=== PATIENT | male | born 1950 | race Two or more races ===

== ENCOUNTER 2020-08-17 10:43 | Emergency (ER) | payer MEDICARE, SELFPAY ==
--- NOTE | ~2020-08-17 | CT_ITS ---
EXAMINATION: CT ABDOMEN AND PELVIS WITHOUT CONTRAST CLINICAL INFORMATION: Flank pain COMPARISON: 09/08/2019 02/11/2018 TECHNIQUE: Multidetector volumetric imaging was performed from the superior aspect of the liver through the pubic symphysis. Sagittal and coronal reformatted images were obtained on the technologist's workstation. This CT examination was performed using dose optimization techniques as appropriate, variously including the following: *Automated exposure control *Adjustment of mA and/or kV according to patient size (this includes techniques or standardized protocols for targeted exams where dose is matched to indication/reason for exam; i.e. extremities or head) *Use of iterative reconstruction technique DLP: 391 mGy-cm FINDINGS: LUNG BASES: The visualized lung bases are unremarkable. LIVER, GALLBLADDER, AND BILIARY TREE: The liver is normal in size, shape, and attenuation. No focal hepatic lesion or biliary ductal dilatation is present. The gallbladder is unremarkable with no evidence of radiopaque gallstones, gallbladder wall thickening, or obvious pericholecystic inflammatory changes. PANCREAS: Unremarkable. SPLEEN: Unremarkable. ADRENAL GLANDS: Unremarkable. KIDNEYS AND URETERS: The kidneys are normal in size, shape, and attenuation. There are couple tiny calculi within the left kidney ranging in size from 1 to 2 mm. No ureteral calculi. No hydronephrosis. Simple fluid attenuating cyst measuring 1.5 cm within the anterior cortex of the right kidney. No perinephric stranding. BLADDER: Mildly and diffusely thick-walled GASTROINTESTINAL TRACT: The small and large bowel are unremarkable. The appendix is unremarkable. ABDOMINAL WALL: Small fat-containing umbilical hernia. Coarse calcification within the right lower quadrant likely represents an old torsed epiploic appendage or omental infarct. LYMPH NODES: Normal. VASCULAR: Stable right common iliac artery aneurysm measuring up to 2.5c centimeters. Aorta is atherosclerotic but normal caliber. PELVIC VISCERA: Prostate is significantly enlarged. TURP defect. Seminal vesicles unremarkable. OSSEOUS STRUCTURES: No acute or suspicious osseous abnormalities. Degenerative changes present throughout the spine. CT/CT abdomen pelvis wo con IMPRESSION: * There are couple small nonobstructive intrarenal calculi within the left kidney. * No ureteral calculi or hydronephrosis. * Stable marked prostatomegaly status post TURP. 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 No perivesicular fat stranding to suggest cystitis. * Stable right common iliac artery aneurysm measuring up to 2.5 cm.
[2020-08-17 11:23] VITALS: BP 126/94; PULSE 79; RESP 18; TEMP 37.1; O2SAT 96; BMI 23.3
--- NOTE | 2020-08-17 11:54 | ED_ITS ---
HPI - Abdominal Pain General Chief Complaint: Abdominal Pain Stated Complaint: BLOOD IN URIN Time Seen by Provider: 08/17/20 11:42 Source: patient Mode of arrival: ambulatory Limitations: no limitations History of Present Illness HPI narrative: 70-year-old male with a past medical history of asthma, hypertension, laser prostatectomy 05/2018 with postoperative hematuria with admission at that time for CBI here today with gross hematuria x3 days with clots and tissue pieces, with lower suprapubic discomfort and bilateral flank pain. Also complaining of dysuria, urgency, frequency. No fevers, chills, nausea, vomiting. Not on anticoagulation. No difficulty voiding. MD elicited complaint: abdominal pain Related Data Previous Rx's Medication Instructions Recorded simethicone 125 mg chewable tablet 125 mg PO QID PRN 30 Days #120 tab 07/18/20 ciprofloxacin HCl [Cipro] 500 mg PO BID #14 tab 08/17/20 tamsulosin [Flomax] 0.4 mg PO DAILY #30 cap 08/17/20 Allergies Allergy/AdvReac Type Severity Reaction Status Date / Time acetaminophen [Percocet] Allergy Unknown Verified 09/21/19 00:00 oxycodone [From PERCOCET] Allergy Unknown HIVES Unverified 03/21/20 19:06 Review of Systems Review of Systems Yes all other systems are reviewed and are negative Constitutional: Reports no additional constitutional complaints, Denies body ache(s), Denies chills, Denies fever(s), Denies headache(s) and Denies weakness Eyes: Reports no additional eye complaints and Denies change in vision Reports system reviewed and no additional complaints, except as documented, Denies dizziness, Denies headache(s), Denies nasal congestion, Denies nasal discharge and Denies neck pain Cardiovascular: Reports no additional cardiovascular complaints, Denies chest p ain, Denies leg edema and Denies dyspnea Respiratory: Reports no additional respiratory complaints, Denies cough and Denies dyspnea Gastrointestinal: Reports no additional gastrointestinal complaints, Denies abdominal pain, Denies diarrhea, Denies nausea and Denies vomiting Genitourinary: Reports hematuria, Denies difficulty urinating, Reports dysuria, Reports flank pain, Denies testicular pain, Reports urinary frequency and Denies urinary incontinence Musculoskeletal: Reports no additional musculoskeletal complaints, Reports back pain, Denies arthralgias, Denies joint swelling, Denies neck pain, Denies numbness and Denies tingling Skin/Breast: Reports system reviewed and no additional complaints, except as docu and Denies rash Reports system reviewed and no additional complaints, except as documented, Denies Abnormal speech present, Denies dizziness, Denies headache(s), Denies numbness, Denies tingling and Denies weakness Physical Exam Vital Signs: Vital Signs: Last Vital Signs Temp 98.7 F 08/17/20 11:23 Pulse 72 08/17/20 14:25 Resp 18 08/17/20 14:25 BP 131/93 H 08/17/20 14:25 Pulse Ox 95 08/17/20 14:25 Body Mass Index 23.3 Const: General: cooperative, healthy appearing, comfortable and no acute distress Orientation/consciousness: patient oriented x3 Limitations: no limitations HENMT: Head: Yes normal to inspection Ears: hearing grossly normal bilaterally General nose exam: Normal external nose present Face and sinus: Yes normal facial exam Mouth: Normal oral and palatal mucosa present Throat: Yes posterior oropharynx normal Eyes: General: appearance normal, both eyes and all related structures Pupils: Equal, round and reactive pupils present Neck: Neck: Yes normal visual inspection Chest: Chest palpation & inspection: normal inspection of the chest Resp: Effort & Inspection: normal respiratory effort Auscultation: clear to auscultation bilaterally Cardio: Rate: regular rate Rhythm: regular rhythm Peripheral pulses: Peripheral pulses 2+ throughout GI: Inspection: Yes normal to inspection Palpation (GI): Soft to palpation and nontender Auscultation: normal bowel sounds Back/Spine/Pelvis: Thoracic/Lumbar Spine: thoracic and lumbar spine normal to inspection Skin: General skin exam: no rashes or lesions noted Neuro: General: patient oriented x3, no focal motor deficits and normal sensation to monofilament Cranial nerves: Yes Equal, round and reactive pupils present Cognition (Neuro): normal cognition Speech: No Abnormal speech present Gait exam (Neuro): Normal gait present Motor exam (neuro): 5/5 motor strength present throughout Extrem: General: Yes normal to inspection Course Course Course Narrative: 70 year old male here with gross hematuria with clots and tissue fragments, urinary frequency, urgency, dysuria, suprapubic discomfort and bilateral flank pain times several days. No difficulty urinating. Will check UA, labs, postvoid residual to make sure patient is not retaining. 1415-CT scan shows several nonobstructing stones No ureteral calculi or hydronephrosis. Stable marked prostatomegaly status post TURP. 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 No perivesicular fat stranding to suggest cystitis. Stable right common iliac artery aneurysm measuring up to 2.5 cm. UA appears infected. Labs unremarkable continues to have gross hematuria but NO difficulty voiding. Postvoid residual <200 cc. Hematuria likely secondary to infection. Will likely need to follow up with Urology based on his history. Recommended he call them next week for an appointment. I recommend he return to the emergency department if he is unable to void or having difficulty. Reviewed worrisome signs and symptoms and when to return to the emergency department. Comfortable discharge home. MDM - Abdominal Pain Medical Records Attestation: I reviewed the patient's medical records. Lab Data Attestation: I reviewed the patient's lab results. Result diagrams: 08/17/20 12:20 08/17/20 12:20 Labs: Lab Results 08/17/20 08/17/20 08/17/20 Range/Units 12:20 12:20 12:20 WBC 4.2 L (4.8-10.8) X10*3/uL RBC 4.93 (4.60-5.80) X10*6/uL Hgb 13.9 L (14.0-18.0) g/dl Hct 42.7 (42-52) % MCV 86.6 (80-98) fL MCH 28.2 (27.0-33.0) pg MCHC 32.6 (31.0-36.0) g/dl RDW 12.3 (11.0-16.0) % Plt Count 155 L (160-400) X10*3/uL MPV 10.4 (9.4-12.4) fL Immature Gran % (Auto) 0.2 (0.0-0.4) % Neut % (Auto) 64.6 (45-73) % Lymph % (Auto) 24.1 (20-40) % [facility] % (Auto) 7.5 (2-11) % Eos % (Auto) 3.1 (0-4) % Baso % (Auto) 0.5 (0-2) % Lymph # (Auto) 1.0 L (1.2-4.9) X10*3/uL [facility] # (Auto) 0.3 (0.1-1.2) X10*3/uL Eos # (Auto) 0.1 (0.0-0.4) X10*3/uL Baso # (Auto) 0.0 (0.0-0.2) X10*3/uL Abs Immat Gran (auto) 0.01 (0.00-0.03) X10*3/uL Absolute Neuts (auto) 2.7 (2.0-8.3) X10*3/uL Absolute Nucleated RBC 0.000 (0.0-0.012) X10*3/uL Nucleated RBC % (auto) 0.0 (0.0-0.2) /100WBC PT 12.2 (10.8-13.0) SEC INR 1.0 (0.9-1.1) Sodium 141 (135-145) mmol/L Potassium 4.6 (3.3-5.1) mmol/L Chloride 100 (96-108) mmol/L Carbon Dioxide 34 H (22-29) mmol/L Anion Gap 12 (12-20) BUN 19 H (9-16) mg/dL Creatinine 0.78 (0.5-1.4) mg/dL Estim Creat Clear Calc 79.5 Estimated GFR > 60 Random Glucose 89 (60-115) mg/dL Calcium 9.6 (8.4-10.2) mg/dL Total Bilirubin 0.7 (0.0-1.0) mg/dL Direct Bilirubin 0.2 (0.0-0.5) mg/dL AST 23 (5-37) U/L ALT 27 (0-40) U/L Alkaline Phosphatase 54 (39-117) U/L Total Protein 6.8 (6.5-8.0) g/dL Albumin 4.5 (3.5-5.0) g/dL Urine Color Urine Appearance Urine pH (5.0-8.0) Ur Specific [place] (1.005-1.025) Urine Protein (NEG-TRACE) MG/DL Urine Glucose (UA) (NEG) MG/DL Urine Ketones (NEG) MG/DL Urine Blood (NEG) Urine Nitrite (NEG) Ur Leukocyte Esterase (NEG) Urine RBC (0) /HPF Urine WBC (0-4) /HPF Ur Squamous Epith Cells /LPF Urine Bacteria /LPF 08/17/20 Range/Units 12:20 WBC (4.8-10.8) X10*3/uL RBC (4.60-5.80) X10*6/uL Hgb (14.0-18.0) g/dl Hct (42-52) % MCV (80-98) fL MCH (27.0-33.0) pg MCHC (31.0-36.0) g/dl RDW (11.0-16.0) % Plt Count (160-400) X10*3/uL MPV (9.4-12.4) fL Immature Gran % (Auto) (0.0-0.4) % Neut % (Auto) (45-73) % Lymph % (Auto) (20-40) % [facility] % (Auto) (2-11) % Eos % (Auto) (0-4) % Baso % (Auto) (0-2) % Lymph # (Auto) (1.2-4.9) X10*3/uL [facility] # (Auto) (0.1-1.2) X10*3/uL Eos # (Auto) (0.0-0.4) X10*3/uL Baso # (Auto) (0.0-0.2) X10*3/uL Abs Immat Gran (auto) (0.00-0.03) X10*3/uL Absolute Neuts (auto) (2.0-8.3) X10*3/uL Absolute Nucleated RBC (0.0-0.012) X10*3/uL Nucleated RBC % (auto) (0.0-0.2) /100WBC PT (10.8-13.0) SEC INR (0.9-1.1) Sodium (135-145) mmol/L Potassium (3.3-5.1) mmol/L Chloride (96-108) mmol/L Carbon Dioxide (22-29) mmol/L Anion Gap (12-20) BUN (9-16) mg/dL Creatinine (0.5-1.4) mg/dL Estim Creat Clear Calc Estimated GFR Random Glucose (60-115) mg/dL Calcium (8.4-10.2) mg/dL Total Bilirubin (0.0-1.0) mg/dL Direct Bilirubin (0.0-0.5) mg/dL AST (5-37) U/L ALT (0-40) U/L Alkaline Phosphatase (39-117) U/L Total Protein (6.5-8.0) g/dL Albumin (3.5-5.0) g/dL Urine Color RED Urine Appearance TURBID Urine pH 7.5 (5.0-8.0) Ur Specific [place] 1.010 (1.005-1.025) Urine Protein 3+ H (NEG-TRACE) MG/DL Urine Glucose (UA) SEE NOTE (NEG) MG/DL Urine Ketones SEE NOTE (NEG) MG/DL Urine Blood 3+ H (NEG) Urine Nitrite SEE NOTE (NEG) Ur Leukocyte Esterase SEE NOTE (NEG) Urine RBC TNTC H (0) /HPF Urine WBC 5-9 H (0-4) /HPF Ur Squamous Epith Cells 1+ /LPF Urine Bacteria NONE /LPF Imaging Data CT scan - abdomen: Attestation: I personally reviewed and interpreted this imaging study as follows: Radiologist's impression: EXAMINATION: CT ABDOMEN AND PELVIS WITHOUT CONTRAST CLINICAL INFORMATION: Flank pain COMPARISON: 09/08/2019 02/11/2018 TECHNIQUE: Multidetector volumetric imaging was performed from the superior aspect of the liver through the pubic symphysis. Sagittal and coronal reformatted images were obtained on the technologist's workstation. This CT examination was performed using dose optimization techniques as appropriate, variously including the following: *Automated exposure control *Adjustment of mA and/or kV according to patient size (this includes techniques or standardized protocols for targeted exams where dose is matched to indication/reason for exam; i.e. extremities or head) *Use of iterative reconstruction technique DLP: 391 mGy-cm FINDINGS: LUNG BASES: The visualized lung bases are unremarkable. LIVER, GALLBLADDER, AND BILIARY TREE: The liver is normal in size, shape, and attenuation. No focal hepatic lesion or biliary ductal dilatation is present. The gallbladder is unremarkable with no evidence of radiopaque gallstones, gallbladder wall thickening, or obvious pericholecystic inflammatory changes. PANCREAS: Unremarkable. SPLEEN: Unremarkable. ADRENAL GLANDS: Unremarkable. KIDNEYS AND URETERS: The kidneys are normal in size, shape, and attenuation. There are couple tiny calculi within the left kidney ranging in size from 1 to 2 mm. No ureteral calculi. No hydronephrosis. Simple fluid attenuating cyst measuring 1.5 cm within the anterior cortex of the right kidney. No perinephric stranding. BLADDER: Mildly and diffusely thick-walled GASTROINTESTINAL TRACT: The small and large bowel are unremarkable. The appendix is unremarkable. ABDOMINAL WALL: Small fat-containing umbilical hernia. Coarse calcification within the right lower quadrant likely represents an old torsed epiploic appendage or omental infarct. LYMPH NODES: Normal. VASCULAR: Stable right common iliac artery aneurysm measuring up to 2.5c centimeters. Aorta is atherosclerotic but normal caliber. PELVIC VISCERA: Prostate is significantly enlarged. TURP defect. Seminal vesicles unremarkable. OSSEOUS STRUCTURES: No acute or suspicious osseous abnormalities. Degenerative changes present throughout the spine. CT/CT abdomen pelvis wo con IMPRESSION: * There are couple small nonobstructive intrarenal calculi within the left kidney. * No ureteral calculi or hydronephrosis. * Stable marked prostatomegaly status post TURP. 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 No perivesicular fat stranding to suggest cystitis. * Stable right common iliac artery aneurysm measuring up to 2.5 cm. Discharge Plan Discharge Clinical Impression: UTI (urinary tract infection), Hematuria Patient Disposition: Home, Self-Care Instructions: Urinary Tract Infection in Men (ED), Hematuria (ED) Additional Instructions: Start your antibiotics as soon as possible Call Dr. Rashid's office on Wednesday for an appointment to be seen Return here to the emergency department for difficulty urinating, fever greater than 100.4, severe abdominal pain, vomiting Prescriptions: New tamsulosin [Flomax] 0.4 mg capsule 0.4 mg PO DAILY Qty: 30 RF: 0 ciprofloxacin HCl [Cipro] 500 mg tablet 500 mg PO BID Qty: 14 RF: 0 No Action simethicone [Gas Relief (simethicone)] 125 mg tablet,chewable 125 mg PO QID PRN (Reason: abdominal distention) 30 Days Qty: 120 RF: 6 Referrals: Berto Rashid III, MD [Physician] - 2 days Interventions: ED Discharge Assessment Last Done: 08/17/20 15:22 Discharge Date/Time: 08/17/20 15:22 [facility] Past Medical History Attestation statement: The following information was validated with the patient. Source: old records reviewed and nursing notes reviewed Medical History Asthma HTN (hypertension) Surgical History Hx of prostatectomy Social History Social History Smoking Status: Former smoker Use of substances other than those prescribed or required for medical reasons: No Advance Directives: No Advance Directives Information Provided: Yes
[2020-08-17 12:25] LABS: MANUAL DIFF FLAG NO
[2020-08-17 12:28] LABS: Basophils Percent Auto 0.5 % (0-2); Eosinophils Absolute Auto 0.1 X10*3/uL (0.0-0.4); Eosinophils Percent Auto 3.1 % (0-4); Hematocrit 42.7 % (42-52); Hemoglobin 13.9 g/dl (14.0-18.0); Imm Gran Abs Auto 0.01 X10*3/uL (0.00-0.03); Imm Gran Pct Auto 0.2 % (0.0-0.4); Lymphocytes Percent Auto 24.1 % (20-40); Mean Corpuscular HGB Conc 32.6 g/dl (31.0-36.0); Mean Corpuscular Hemoglobin 28.2 pg (27.0-33.0); Mean Corpuscular Volume 86.6 fL (80-98); Mean Platelet Volume 10.4 fL (9.4-12.4); Monocytes Absolute Auto 0.3 X10*3/uL (0.1-1.2); Monocytes Percent Auto 7.5 % (2-11); Neutrophils Absolute Auto 2.7 X10*3/uL (2.0-8.3); Neutrophils Percent Auto 64.6 % (45-73); Platelet Count 155 X10*3/uL (160-400); Red Blood Count 4.93 X10*6/uL (4.60-5.80); Red Cell Distribution Width 12.3 % (11.0-16.0); White Blood Count 4.2 X10*3/uL (4.8-10.8)
[2020-08-17 12:33] LABS: PH 7.5 (5.0-8.0); Urine Blood 3+ (NEG); Urine Protein 3+ MG/DL (NEG-TRACE)
[2020-08-17 12:34] LABS: Prothrombin Time 12.2 SEC (10.8-13.0)
[2020-08-17 12:37] LABS: Appearance Urine TURBID; Color Urine RED
[2020-08-17 12:38] LABS: RBC Urine TNTC /HPF (0); Squamous Epithelial Cell Urine 1+ /LPF; UACC CULT YES
[2020-08-17 12:52] LABS: Alanine Aminotransferase 27 U/L (0-40); Albumin Level 4.5 g/dL (3.5-5.0); Alkaline Phosphatase 54 U/L (39-117); Anion Gap 12 (12-20); Aspartate Amino Transferase 23 U/L (5-37); Bilirubin Direct 0.2 mg/dL (0.0-0.5); Bilirubin Total 0.7 mg/dL (0.0-1.0); Blood Urea Nitrogen 19 mg/dL (9-16); Calcium 9.6 mg/dL (8.4-10.2); Carbon Dioxide 34 mmol/L (22-29); Chloride 100 mmol/L (96-108); Creatinine Clr Calc Pharmacy 79.5; Estimated Glomerular Filt Rate > 60; Glucose Random 89 mg/dL (60-115); Potassium 4.6 mmol/L (3.3-5.1); Sodium 141 mmol/L (135-145); Total Protein 6.8 g/dL (6.5-8.0)
[2020-08-17 14:25] VITALS: BP 131/93; PULSE 72; RESP 18; O2SAT 95
--- NOTE | 2020-08-17 14:26 | PC.NURSE ---
pt resting in the stretcher, alert and oriented, denies pain at this time pt is voiding about 350ml of hematuria urine
== END 2020-08-17 15:22 | disposition home or self-care (01) ==
PROVIDERS: Nurse Practitioner Family; Emergency Provider Emergency Medicine Emergency Medical Services
DX: N39.0 Urinary tract infection, site not specified (principal); R31.9 Hematuria, unspecified; I10 Essential (primary) hypertension
CPT/HCPCS: 36415; 74176; 80048; 80076; 81001; 85025; 85610; 87086; 99284

== ENCOUNTER → 2020-08-27 08:50 | Outpatient (BNVA) | payer MEDICARE, SELFPAY | PROVIDERS: Visit Provider Urology | DX: R33.9 Retention of urine, unspecified (principal); R31.0 Gross hematuria; N40.1 Benign prostatic hyperplasia with lower urinary tract symptoms; N13.8 Other obstructive and reflux uropathy; N20.0 Calculus of kidney | CPT/HCPCS: 81002; 99212 ==

== ENCOUNTER → 2020-10-22 08:43 | Outpatient (BNVA) | payer MEDICARE, SELFPAY | PROVIDERS: Visit Provider Urology | DX: R31.0 Gross hematuria (principal); N40.1 Benign prostatic hyperplasia with lower urinary tract symptoms; N13.8 Other obstructive and reflux uropathy | CPT/HCPCS: 52000; 99212 ==

== ENCOUNTER 2021-01-07 08:40 | Emergency (ER) | payer MEDICARE, SELFPAY ==
[2021-01-07 09:17] VITALS: BP 117/72; PULSE 80; RESP 18; TEMP 36.6; O2SAT 95; BMI 25.8
--- NOTE | 2021-01-07 09:34 | ED_ITS ---
HPI - General Adult General Chief complaint: General Medical Stated complaint: nose bleed Time Seen by Provider: 01/07/21 09:28 Source: patient and certified court/medical interpreter Mode of arrival: ambulatory Limitations: no limitations History of Present Illness HPI narrative: no aspirin/AC therapy MD complaint: nose bleeds Onset (ago): day(s) (3) Location: face (nose) Radiation: non-radiation Severity: mild Quality: aching Pain Consistency: constant Relieving factors: none Exacerbating factors: none Associated symptoms: denies other symptoms Treatments prior to arrival: none Related Data Home Medications Medication Instructions Recorded Confirmed albuterol sulfate 90 mcg/actuation 2 puff PO Q4-6H PRN 08/27/20 aerosol inhaler atorvastatin 40 mg tablet mg PO 08/27/20 hydrochlorothiazide 12.5 mg tablet 12.5 mg PO DAILY 08/27/20 omeprazole 40 mg capsule,delayed 40 mg PO DAILY 08/27/20 release peg-electrolyte solution 420 gram ml PO 08/27/20 oral solution zolpidem 5 mg tablet 5 mg PO BEDTIME 08/27/20 Previous Rx's Medication Instructions Recorded simethicone 125 mg chewable tablet 125 mg PO QID PRN 30 Days #120 tab 07/18/20 ciprofloxacin HCl [Cipro] 500 mg PO BID #14 tab 08/17/20 tamsulosin [Flomax] 0.4 mg PO DAILY #30 cap 08/17/20 terazosin 10 mg capsule 10 mg PO BEDTIME 90 Days #90 cap 10/22/20 Allergies Allergy/AdvReac Type Severity Reaction Status Date / Time acetaminophen [Percocet] Allergy Unknown hives Verified 10/22/20 08:58 oxycodone [From PERCOCET] Allergy Unknown HIVES Unverified 03/21/20 19:06 Review of Systems Review of Systems: Constitutional : No Fever, No Chills ENT/Mouth : No Ear Pain, No Nasal Congestion, positive nose bleed Eyes: No Eye Pain, No Swelling, No Redness Cardiovascular : No Chest Pain, No SOB Respiratory : No Cough, No Sputum Gastrointestinal : No Nausea, No Vomiting, No Diarrhea Genitourinary : No Dysuria, No Hematuria Musculoskeletal : No joint pain, No Myalgias Skin : No Skin Lesions, No rash Neuro : No Weakness, No Numbness, No headache Psych : No Anxiety/Panic, No Depression Heme/Lymph: no easy Bleeding,No Lymphadenopathy Endocrine : No Polyuria, No Polydipsia All other systems reviewed and are negative [facility] Past Medical History Attestation statement: The following information was validated with the patient. Medical History Asthma HTN (hypertension) Surgical History Hx of prostatectomy Social History Social History Alcohol intake: unknown Patient Tobacco Use Status: Former Tobacco user Smoked in Last 30 Days: No Use of substances other than those prescribed or required for medical reasons: No Advance Directives: Yes Advance Directives Information Provided: Yes Advance Directives on File: No Physical Exam Vital Signs: Vital Signs: Last Vital Signs Temp 98 F 01/07/21 09:17 Pulse 80 01/07/21 09:17 Resp 18 01/07/21 09:17 BP 117/72 01/07/21 09:17 Pulse Ox 95 01/07/21 09:17 Body Mass Index 25.8 Appearance: Alert. Oriented X3. No acute distress. Eyes: Pupils equal, round and reactive to light. ENT: Pharynx normal. Dried blood and cracked area on L anterior nasal plexxus Neck: Normal inspection. Neck supple. CVS: Normal heart rate and rhythm. Pulses normal. Respiratory: No respiratory distress. Breath sounds normal. Abdomen: Soft and nontender. Skin: Skin warm and dry. Normal skin color. Normal skin turgor. Extremities: No lower extremity edema. No calf ttp Neuro: Oriented X 3. No motor deficit. No sensory deficit. Procedures Epistaxis Control Time Out Performed: Yes Nostril: Yes left Nose prepped with: Yes lidocaine Direct inspection: Yes anterior source identified Direct inspection method: Yes otoscope Epistaxis treatment: Yes silver nitrate cautery Results of treatment: Yes bleeding controlled Complications: Yes none Medical Decision Making MDM Narrative Medical decision making narrative: 70 yo male with intermittent nose bleeds x 3 days no AC therapy, mild decrease in plts - will refer to PCP there is an area on anterior plexxus left side with a crack likely the source no signs of posterior bleeding - will cauterize area Lab Data Result diagrams: 01/07/21 09:52 Labs: Lab Results 01/07/21 Range/Units 09:52 WBC 3.6 L (4.8-10.8) X10*3/uL RBC 4.69 (4.60-5.80) X10*6/uL Hgb 13.4 L (14.0-18.0) g/dl Hct 40.5 L (42-52) % MCV 86.4 (80-98) fL MCH 28.6 (27.0-33.0) pg MCHC 33.1 (31.0-36.0) g/dl RDW 12.4 (11.0-16.0) % Plt Count 136 L (160-400) X10*3/uL MPV 10.5 (9.4-12.4) fL Absolute Nucleated RBC 0.000 (0.0-0.012) X10*3/uL Nucleated RBC % (auto) 0.0 (0.0-0.2) /100WBC Discharge Plan Discharge Clinical Impression: Acute anterior epistaxis Patient Disposition: Home, Self-Care Instructions: Nosebleed (ED) Additional Instructions: return to ED for any worsening symptoms or concerns BACITRACIN TWICE A DAY FOR 3 DAYS, DO NOT BLOW NOSE for 3 days Prescriptions: No Action simethicone [Gas Relief (simethicone)] 125 mg tablet,chewable 125 mg PO QID PRN (Reason: abdominal distention) 30 Days Qty: 120 RF: 6 tamsulosin [Flomax] 0.4 mg capsule 0.4 mg PO DAILY Qty: 30 RF: 0 ciprofloxacin HCl [Cipro] 500 mg tablet 500 mg PO BID Qty: 14 RF: 0 zolpidem 5 mg tablet 5 mg PO BEDTIME RF: 0 albuterol sulfate 90 mcg/actuation HFA aerosol inhaler 2 puff PO Q4-6H PRNRF: 0 hydrochlorothiazide 12.5 mg tablet 12.5 mg PO DAILY RF: 0 peg-electrolyte soln 420 gram recon soln PO RF: 0 atorvastatin 40 mg tablet PO RF: 0 omeprazole 40 mg capsule,delayed release(DR/EC) 40 mg PO DAILY RF: 0 terazosin 10 mg capsule 10 mg PO BEDTIME 90 Days Qty: 90 RF: 1 Referrals: Physician,Unknown [Primary Care Provider] - 2 days (repeat platelet testing) Print Language: Peruvian
[2021-01-07 09:57] LABS: Mean Corpuscular HGB Conc 33.1 g/dl (31.0-36.0); PLT CLUMP 1
[2021-01-07 09:59] LABS: Hematocrit 40.5 % (42-52); Hemoglobin 13.4 g/dl (14.0-18.0); Mean Corpuscular Hemoglobin 28.6 pg (27.0-33.0); Mean Corpuscular Volume 86.4 fL (80-98); Mean Platelet Volume 10.5 fL (9.4-12.4); Platelet Count 136 X10*3/uL (160-400); Red Blood Count 4.69 X10*6/uL (4.60-5.80); Red Cell Distribution Width 12.4 % (11.0-16.0); White Blood Count 3.6 X10*3/uL (4.8-10.8)
[2021-01-07] MEDS: Silver Nitrate Applicator STICK..EA. 1 APPL TOPICAL (10:01)
[2021-01-07] MEDS: Lidocaine HCl 2% PF/Epi 1:200 20 ML VIAL INFILTRATI (10:01)
--- NOTE | 2021-01-07 10:05 | PC.NURSE ---
lidocaine 2% w/epi applied to 2x2 gauze and gently placed inside pts left nare prior to cauterization. MD aware that lido has been applied.
== END 2021-01-07 10:32 | disposition home or self-care (01) ==
PROVIDERS: Emergency Provider Emergency Medicine
DX: R04.0 Epistaxis (principal)
CPT/HCPCS: 30901; 36415; 85027; 99284

== ENCOUNTER → 2021-04-22 08:46 | Outpatient (BNVA) | payer MEDICARE, SELFPAY | PROVIDERS: Visit Provider Urology | DX: N40.1 Benign prostatic hyperplasia with lower urinary tract symptoms (principal); N13.8 Other obstructive and reflux uropathy; N20.0 Calculus of kidney | CPT/HCPCS: 51798; 99212 ==

== ENCOUNTER 2021-06-18 07:43 | Emergency (ER) | payer MEDICARE, SELFPAY ==
--- NOTE | ~2021-06-18 | CT_ITS ---
EXAMINATION: CT ABDOMEN AND PELVIS WITHOUT CONTRAST CLINICAL INFORMATION: CVA tenderness COMPARISON: August 17, 2020, September 08, 2019, and December 05, 2018 TECHNIQUE: Multidetector volumetric imaging was performed from the superior aspect of the liver through the pubic symphysis. Sagittal and coronal reformatted images were obtained on the technologist's workstation. This CT examination was performed using dose optimization techniques as appropriate, variously including the following: *Automated exposure control *Adjustment of mA and/or kV according to patient size (this includes techniques or standardized protocols for targeted exams where dose is matched to indication/reason for exam; i.e. extremities or head) *Use of iterative reconstruction technique DLP: 451 mGy-cm FINDINGS: LUNG BASES: There is bibasilar lung scarring present. Patient has developed a minimal right pleural effusion or pleural thickening since previous study. Heart normal size. No pericardial effusion. LIVER, GALLBLADDER, AND BILIARY TREE: The liver is normal in size, shape, and attenuation. No focal hepatic lesion or biliary ductal dilatation is present. The gallbladder is unremarkable with no evidence of radiopaque gallstones, gallbladder wall thickening, or obvious pericholecystic inflammatory changes. PANCREAS: Unremarkable. SPLEEN: Unremarkable. ADRENAL GLANDS: Unremarkable. KIDNEYS AND URETERS: No hydronephrosis, hydroureter, or calculi seen. No perinephric stranding. There is a 1.6 cm right interpolar cyst. There is a 5 mm hyperdensity structure seen within the lower pole which may represent a hyperdense cyst. This was present on previous study of August 17, 2020 but I cannot definitely see it dating before that. There are 2, 3 mm nonobstructing calculi seen within the left kidney. BLADDER: There appears be a small right-sided posterior lateral bladder diverticulum. There is also question of a right-sided posterior bladder wall mass versus debris. Cystoscopy is recommended. GASTROINTESTINAL TRACT: No dilated loops of large or small bowel are seen. No free air or free fluid. No evidence of acute diverticulitis. No pericolonic inflammatory change. The appendix appears unremarkable. ABDOMINAL WALL: No significant hernia is appreciated. LYMPH NODES: No lymphadenopathy appreciated. VASCULAR: There is a stable 2.5 cm calcified right iliac artery aneurysm. No abdominal aortic aneurysm. PELVIC VISCERA: Prostate gland is enlarged. No lymphadenopathy is appreciated. Seminal vesicles prominent. OSSEOUS STRUCTURES: There is a stable sclerotic legion seen within the right side of the L4 vertebral body. There is a sclerotic lesion which is stable seen in the T12 vertebral body. There is severe degenerative disease at the L5-S1 level. No suspicious destructive bony lesion identified. CT/CT abdomen pelvis wo con IMPRESSION: Question right-sided bladder wall mass for which cystoscopy is recommended. Left renal calculi without evidence of obstructive uropathy. Right renal cysts. Stable 2.5 cm right iliac artery aneurysm.
[2021-06-18 08:09] VITALS: BP 122/74; PULSE 94; RESP 18; TEMP 36.7; O2SAT 95; BMI 23.3
[2021-06-18 08:33] LABS: Appearance Urine CLOUDY; Color Urine BROWN; Glucose Urine UA 100 MG/DL (NEG); Leukocyte Esterase Urine 1+ (NEG); Nitrite Urine POS (NEG); PH 6.5 (5.0-8.0); Specific Gravity - Urine 1.025 (1.005-1.025); UACC Culture Trigger YES; Urine Blood 3+ (NEG); Urine Ketones 5 MG/DL (NEG); Urine Protein 3+ MG/DL (NEG-TRACE)
[2021-06-18 08:41] LABS: Bacteria Urine TRACE /LPF; RBC Urine TNTC /HPF (0); Triple Phosphate Crystal Urine 1+ /LPF; WBC Urine 0-2 /HPF (0-4)
--- NOTE | 2021-06-18 09:38 | ED.MALEGU ---
HPI - Male Genitourinary General Chief complaint: Urogenital-Male Stated complaint: blood in urine Time Seen by Provider: 06/18/21 09:26 Source: patient Mode of arrival: ambulatory Limitations: no limitations History of Present Illness HPI Narrative: This is a 71-year-old male past medical history significant for nephrolithiasis, hypertension asthma presenting to the emergency department with 3 days of blood in his urineand painful urination. Patient tells me that initially he noted that his urine was red, and as the days progressed he has noted that there are some blood clots in his urine, he tells me that the blood is bright red. He also reports bilateral flank pain. And nausea. Patient tells me that he is not on any blood thinners. He also mentions to me that his prostate is enlarged. He tells me he is followed by our urologist here Dr. Whitley. He tells me this feels like the time he had a kidney stone. Patient denies fevers, chills, nausea, vomiting, diarrhea, chest pain, shortness of breath. MD Complaint: dysuria and other (Hematuria ) Onset (ago): day(s) (3) Duration: constant Severity: severe Severity scale (1-10): 10 Quality: burning Relieving factors: none Exacerbating factors: none Associated symptoms: Reports nausea/vomiting (nausea ) Related Data Home Medications Medication Instructions Recorded Confirmed albuterol sulfate 90 mcg/actuation 2 puff PO Q4-6H PRN 08/27/20 aerosol inhaler atorvastatin 40 mg tablet mg PO 08/27/20 hydrochlorothiazide 12.5 mg tablet 12.5 mg PO DAILY 08/27/20 omeprazole 40 mg capsule,delayed 40 mg PO DAILY 08/27/20 release peg-electrolyte solution 420 gram ml PO 08/27/20 oral solution zolpidem 5 mg tablet 5 mg PO BEDTIME 08/27/20 bupropion HCl 100 mg tablet,12 hr 200 mg PO DAILY 04/22/21 sustained-release buspirone 5 mg tablet 5 mg PO BID 04/22/21 ergocalciferol (vitamin D2) 1,250 1,250 mcg PO QWEEK 04/22/21 mcg (50,000 unit) capsule escitalopram oxalate 5 mg tablet 5 mg PO DAILY 04/22/21 fluticasone propionate 100 1 inh PO BID 04/22/21 mcg/actuation blister powder for inhalation (Flovent Diskus) hydroxyzine HCl 25 mg tablet 25 mg PO DAILY PRN 04/22/21 simethicone 180 mg capsule 180 mg PO TID 04/22/21 Previous Rx's Medication Instructions Recorded simethicone 125 mg chewable tablet 125 mg PO QID PRN 30 Days #120 tab 07/18/20 (Gas Relief (simethicone)) ciprofloxacin HCl 500 mg tablet 500 mg PO BID #14 tab 08/17/20 (Cipro) tamsulosin 0.4 mg capsule (Flomax) 0.4 mg PO DAILY #30 cap 08/17/20 terazosin 10 mg capsule 10 mg PO BEDTIME 90 Days #90 cap 04/22/21 cefuroxime axetil 250 mg tablet 250 mg PO BID 7 Days #14 tab 06/18/21 ondansetron 4 mg disintegrating 4 mg PO ONCE PRN #10 tab 06/18/21 tablet Allergies Allergy/AdvReac Type Severity Reaction Status Date / Time acetaminophen [Percocet] Allergy Unknown hives Verified 04/22/21 08:49 oxycodone [From PERCOCET] Allergy Unknown HIVES Verified 04/22/21 08:49 Review of Systems Review of Systems: Constitutional : No Fever, No Chills ENT/Mouth : No sore throat Eyes: No Eye Pain, No Swelling, No Redness Cardiovascular : No Chest Pain, No SOB Respiratory : No Cough, No Sputum, No Wheezing Gastrointestinal : positive Nausea, positive Vomiting, No Diarrhea, positive abdominal pain Genitourinary : positive Dysuria, positive urinary frequency, positive Hematuria, positive Flank Pain, positive hesitancy Musculoskeletal : No joint pain, No Myalgias Skin : No Skin Lesions, No rash Neuro : No Weakness, No Numbness, No Headache Psych : No Anxiety/Panic, No Depression Heme/Lymph: No Bruising, No Lymphadenopathy Endocrine : No Polyuria, No Polydipsia All other systems reviewed and are negative Yes all other systems are reviewed and are negative [facility] Past Medical History Attestation statement: The following information was validated with the patient. Source: old records reviewed and nursing notes reviewed Medical History Asthma BPH loc w urin obs/LUTS Esophageal dysphagia Hematuria HTN (hypertension) PVD (peripheral vascular disease) Vitamin D deficiency Surgical History History of surgery Hx of prostatectomy Social History Social History Alcohol intake: unknown Patient Tobacco Use Status: Former Tobacco user Advance Directives: No Advance Directives Information Provided: No Physical Exam Vital Signs: Vital Signs: Last Vital Signs Temp 98.1 F 06/18/21 08:09 Pulse 68 06/18/21 12:12 Resp 18 06/18/21 12:12 BP 115/82 06/18/21 12:12 Pulse Ox 98 06/18/21 12:12 BMI result Body Mass Index 23.3 Vital signs are stable. Appearance: Alert.? Oriented X3.? No acute distress.? Head: Normocephalic, atraumatic, no step-offs or deformities Eyes: Pupils equal, round and reactive to light.? ENT: Pharynx normal.? Neck: Normal inspection.? Neck supple.? CVS: Normal heart rate and rhythm.? Pulses normal.? Respiratory: No respiratory distress.? Breath sounds normal.? Abdomen: Soft and nontender.? Skin: Skin warm and dry.? Normal skin color.? Normal skin turgor.? Extremities: No lower extremity edema.? No calf ttp. 5/5 strength to bilateral upper and lower extremities Back: No midline tenderness, no C-spine tenderness, full range of motion, + CVA tenderness bilaterally Neuro: Oriented X 3.? No motor deficit.? No sensory deficit. Course Reevaluation(s) Reevaluation #1: A baseline leukopenia and thrombopenia are noted. No anemia. Urine positive for protein, glucose, blood, nitrates, leukocyte esterases. Time: 11:00 Reevaluation #2: CT scan shows a question right-sided bladder wall mass which recommend cystoscopy. There was also left renal colic heel I without evidence of obstructive uropathy. There are right renal cysts noted. And there is a 2.5 cm right iliac artery aneurysm noted as well. Will reach out to Dr. Whitley. Time: 12:36 Reevaluation #3: I discussed this case with Dr. Whitley and shared his CT scan results with him via tiger text. He recommends outpatient follow-up with him in the office. He agrees that this sounds like a UTI. I will discharge patient home on Ceftin 250 mg p.o. b.i.d. for 7 days. I have given patient strict return precautions and have advised him to return to the emergency department with new or worsening symptoms Time: 12:41 Additional Reevaluation(s): No acute findings on patient's chemistry, his transaminases are noted to be elevated likely secondary to alcohol use however, patient is not complaining of abdominal pain. He only complained of nausea, no pain to the right upper quadrant or pain on palpation. CT was done no acute findings. Patient will follow up with Urology on an outpatient basis. Has been given strict return precautions. Comfortable with discharge home MDM - Male Genitourinary MDM Narrative Medical decision making narrative: [id number] 71-year-old male past medical history significant for asthma, hypertension nephrolithiasis, BPH w/ uniary obstruction/LUTS presents to the emergency department with complaints of hematuria, dysuria, urinary frequency, urgency and bilateral flank pain x3 days progressively worsening. Patient is not on blood thinners. Patient also reports associated nausea. Patient's urologist is . Patient tells me that this feels like his typical kidney stone. Upon physical examination patient appears well, vital signs are stable. Lungs are clear. Abdomen soft nontender nondistended. Regular rate and rhythm. Bilateral CVA tenderness is appreciated. No focal neuro deficits. Will rule out kidney stones, and pylonephritis although unlikely patient is not toxic appearing and he doesnt report fevers or chills Plan at this time is to obtain basic labs, urine, CT of the abdomen and pelvis without contrast. Medical Records Attestation: I reviewed the patient's medical records. Lab Data Attestation: I reviewed the patient's lab results. Result diagrams: 06/18/21 09:55 06/18/21 12:38 Labs: Lab Results 06/18/21 06/18/21 06/18/21 Range/Units 08:20 09:55 09:55 WBC 4.1 L (4.8-10.8) X10*3/uL RBC 4.92 (4.60-5.80) X10*6/uL Hgb 14.3 (14.0-18.0) g/dl Hct 43.5 (42.0-52.0) % MCV 88.4 (80.0-98.0) fL MCH 29.1 (27.0-33.0) pg MCHC 32.9 (31.0-36.0) g/dl RDW 12.2 (11.0-16.0) % Plt Count 155 L (160-400) X10*3/uL MPV 10.3 (9.4-12.4) fL Immature Gran % (Auto) 0.2 (0.0-0.4) % Neut % (Auto) 63.2 (45-73) % Lymph % (Auto) 22.8 (20-40) % [place] % (Auto) 8.7 (2-11) % Eos % (Auto) 4.4 H (0-4) % Baso % (Auto) 0.7 (0-2) % Lymph # (Auto) 0.9 L (1.2-4.9) X10*3/uL [place] # (Auto) 0.4 (0.1-1.2) X10*3/uL Eos # (Auto) 0.2 (0.0-0.4) X10*3/uL Baso # (Auto) 0.0 (0.0-0.2) X10*3/uL Abs Immat Gran (auto) 0.01 (0.00-0.03) X10*3/uL Absolute Neuts (auto) 2.6 (2.0-8.3) x10*3/uL Absolute Nucleated RBC 0.000 (0.0-0.012) X10*3/uL Nucleated RBC % (auto) 0.0 (0.0-0.2) /100WBC Sodium (135-145) mmol/L Potassium (3.3-5.1) mmol/L Chloride (96-108) mmol/L Carbon Dioxide (22-29) mmol/L Anion Gap (12-20) BUN (9-16) mg/dL Creatinine (0.5-1.4) mg/dL Estim Creat Clear Calc Estimated GFR Random Glucose (60-115) mg/dL Calcium (8.4-10.2) mg/dL Magnesium (1.6-2.6) mg/dL Total Bilirubin (0.0-1.0) mg/dL AST (5-37) U/L ALT (0-40) U/L Alkaline Phosphatase (39-117) U/L Total Protein (6.5-8.0) g/dL Albumin (3.5-5.0) g/dL Urine Color BROWN Urine Appearance CLOUDY Urine pH 6.5 (5.0-8.0) Ur Specific Hasty 1.025 (1.005-1.025) Urine Protein 3+ H (NEG-TRACE) MG/DL Urine Glucose (UA) 100 H (NEG) MG/DL Urine Ketones 5 (NEG) MG/DL Urine Blood 3+ H (NEG) Urine Nitrite POS H (NEG) Ur Leukocyte Esterase 1+ H (NEG) Urine RBC TNTC H (0) /HPF Urine WBC 0-2 (0-4) /HPF Ur Squamous Epith Cells NONE /LPF Triple Phos Crystals 1+ /LPF Urine Bacteria TRACE /LPF COVID-19 ([facility]) Negative (Negative) COVID-19 Clin Com See Note 06/18/21 Range/Units 12:38 WBC (4.8-10.8) X10*3/uL RBC (4.60-5.80) X10*6/uL Hgb (14.0-18.0) g/dl Hct (42.0-52.0) % MCV (80.0-98.0) fL MCH (27.0-33.0) pg MCHC (31.0-36.0) g/dl RDW (11.0-16.0) % Plt Count (160-400) X10*3/uL MPV (9.4-12.4) fL Immature Gran % (Auto) (0.0-0.4) % Neut % (Auto) (45-73) % Lymph % (Auto) (20-40) % [place] % (Auto) (2-11) % Eos % (Auto) (0-4) % Baso % (Auto) (0-2) % Lymph # (Auto) (1.2-4.9) X10*3/uL [place] # (Auto) (0.1-1.2) X10*3/uL Eos # (Auto) (0.0-0.4) X10*3/uL Baso # (Auto) (0.0-0.2) X10*3/uL Abs Immat Gran (auto) (0.00-0.03) X10*3/uL Absolute Neuts (auto) (2.0-8.3) x10*3/uL Absolute Nucleated RBC (0.0-0.012) X10*3/uL Nucleated RBC % (auto) (0.0-0.2) /100WBC Sodium 142 (135-145) mmol/L Potassium 4.3 (3.3-5.1) mmol/L Chloride 106 (96-108) mmol/L Carbon Dioxide 32 H (22-29) mmol/L Anion Gap 8 L (12-20) BUN 17 H (9-16) mg/dL Creatinine 0.76 (0.5-1.4) mg/dL Estim Creat Clear Calc 80.4 Estimated GFR > 60 Random Glucose 90 (60-115) mg/dL Calcium 9.1 (8.4-10.2) mg/dL Magnesium 1.9 (1.6-2.6) mg/dL Total Bilirubin 0.5 (0.0-1.0) mg/dL AST 64 H (5-37) U/L ALT 95 H (0-40) U/L Alkaline Phosphatase 50 (39-117) U/L Total Protein 6.2 L (6.5-8.0) g/dL Albumin 3.9 (3.5-5.0) g/dL Urine Color Urine Appearance Urine pH (5.0-8.0) Ur Specific Hasty (1.005-1.025) Urine Protein (NEG-TRACE) MG/DL Urine Glucose (UA) (NEG) MG/DL Urine Ketones (NEG) MG/DL Urine Blood (NEG) Urine Nitrite (NEG) Ur Leukocyte Esterase (NEG) Urine RBC (0) /HPF Urine WBC (0-4) /HPF Ur Squamous Epith Cells /LPF Triple Phos Crystals /LPF Urine Bacteria /LPF COVID-19 ([facility]) (Negative) COVID-19 Clin Com Imaging Data CT scan - abdomen: Attestation: I personally reviewed and interpreted this imaging study as follows: Radiologist's impression: CT/CT abdomen pelvis wo con IMPRESSION: Question right-sided bladder wall mass for which cystoscopy is recommended. ? Left renal calculi without evidence of obstructive uropathy. ? Right renal cysts. ? Stable 2.5 cm right iliac artery aneurysm.? ? Critical Care Time Critical Care Time Critical Care Time: Yes Total Critical Care Time: 36 Attestation: I attest to this time spent taking care of the patient reviewing labs/images, doing chart review, speaking to urology. Discharge Plan Discharge Clinical Impression: Urinary tract infection, Nausea Patient Disposition: Home, Self-Care Instructions: Urinary Tract Infection in Men (ED), Acute Nausea and Vomiting (ED) Additional Instructions: Take your medications as prescribed. If you were prescribed antibiotics today, it is important that you take your medication to their entirety, do not skip any doses, do not finish them early. Your CT scan showed a possible mass within the bladder that will require outpatient follow-up with . It also shows right renal cyst, and a 2.5 cm right iliac artery aneurysm. This will require regular follow-up with her primary care, and monitoring. Follow-up with your primary care provider this week. Return to the emergency department with new or worsening symptoms. In case of emergency call 911 Prescriptions: New cefuroxime axetil 250 mg tablet 250 mg PO BID 7 Days Qty: 14 RF: 0 ondansetron 4 mg tablet,disintegrating 4 mg PO ONCE PRN (Reason: nausea and vomiting) Qty: 10 RF: 0 No Action simethicone [Gas Relief (simethicone)] 125 mg tablet,chewable 125 mg PO QID PRN (Reason: abdominal distention) 30 Days Qty: 120 RF: 6 tamsulosin [Flomax] 0.4 mg capsule 0.4 mg PO DAILY Qty: 30 RF: 0 ciprofloxacin HCl [Cipro] 500 mg tablet 500 mg PO BID Qty: 14 RF: 0 zolpidem 5 mg tablet 5 mg PO BEDTIME RF: 0 albuterol sulfate 90 mcg/actuation HFA aerosol inhaler 2 puff PO Q4-6H PRNRF: 0 hydrochlorothiazide 12.5 mg tablet 12.5 mg PO DAILY RF: 0 peg-electrolyte soln 420 gram recon soln PO RF: 0 atorvastatin 40 mg tablet PO RF: 0 omeprazole 40 mg capsule,delayed release(DR/EC) 40 mg PO DAILY RF: 0 terazosin 10 mg capsule 10 mg PO BEDTIME 90 Days Qty: 90 RF: 3 Referrals: Niki Ramos MD [Primary Care Provider] - 2 days Gilles Whitley MD [Physician] - 1 day
[2021-06-18] MEDS: 0.9 % Sodium Chloride 1,000 ML 999 ML IV (09:58)
[2021-06-18] MEDS: Ondansetron ODT 4 MG TAB.RAPDIS TRANSLINGU (10:05)
[2021-06-18 10:10] LABS: MANUAL DIFF FLAG NO
[2021-06-18 10:14] LABS: Basophils Percent Auto 0.7 % (0-2); Eosinophils Absolute Auto 0.2 X10*3/uL (0.0-0.4); Eosinophils Percent Auto 4.4 % (0-4); Hematocrit 43.5 % (42.0-52.0); Hemoglobin 14.3 g/dl (14.0-18.0); Imm Gran Abs Auto 0.01 X10*3/uL (0.00-0.03); Imm Gran Pct Auto 0.2 % (0.0-0.4); Lymphocytes Absolute Auto 0.9 X10*3/uL (1.2-4.9); Lymphocytes Percent Auto 22.8 % (20-40); Mean Corpuscular HGB Conc 32.9 g/dl (31.0-36.0); Mean Corpuscular Hemoglobin 29.1 pg (27.0-33.0); Mean Corpuscular Volume 88.4 fL (80.0-98.0); Mean Platelet Volume 10.3 fL (9.4-12.4); Monocytes Absolute Auto 0.4 X10*3/uL (0.1-1.2); Monocytes Percent Auto 8.7 % (2-11); Neutrophils Absolute Auto 2.6 x10*3/uL (2.0-8.3); Neutrophils Percent Auto 63.2 % (45-73); Platelet Count 155 X10*3/uL (160-400); Red Blood Count 4.92 X10*6/uL (4.60-5.80); Red Cell Distribution Width 12.2 % (11.0-16.0); White Blood Count 4.1 X10*3/uL (4.8-10.8)
[2021-06-18 10:40] LABS: COVID-19 Test Negative (Negative); IDNOW Serial# 55D5AD1C
[2021-06-18 11:13] VITALS: BP 129/84; PULSE 69; RESP 17; O2SAT 96
[2021-06-18] MEDS: Ketorolac Tromethamine 30 MG/ML VIAL IVPUSH (11:30)
[2021-06-18 12:12] VITALS: BP 115/82; PULSE 68; RESP 18; O2SAT 98
[2021-06-18 13:17] LABS: Alanine Aminotransferase 95 U/L (0-40); Albumin Level 3.9 g/dL (3.5-5.0); Alkaline Phosphatase 50 U/L (39-117); Anion Gap 8 (12-20); Aspartate Amino Transferase 64 U/L (5-37); Bilirubin Total 0.5 mg/dL (0.0-1.0); Blood Urea Nitrogen 17 mg/dL (9-16); Calcium 9.1 mg/dL (8.4-10.2); Carbon Dioxide 32 mmol/L (22-29); Chloride 106 mmol/L (96-108); Creatinine Clr Calc Pharmacy 80.4; Estimated Glomerular Filt Rate > 60; Glucose Random 90 mg/dL (60-115); Magnesium 1.9 mg/dL (1.6-2.6); Potassium 4.3 mmol/L (3.3-5.1); Sodium 142 mmol/L (135-145); Total Protein 6.2 g/dL (6.5-8.0)
== END 2021-06-18 13:43 | disposition home or self-care (01) ==
PROVIDERS: Physician Assistant; Emergency Provider Emergency Medicine; PCP Internal Medicine
DX: N39.0 Urinary tract infection, site not specified (principal); R11.0 Nausea; N40.1 Benign prostatic hyperplasia with lower urinary tract symptoms; N13.8 Other obstructive and reflux uropathy; I10 Essential (primary) hypertension; J45.909 Unspecified asthma, uncomplicated; Z87.442 Personal history of urinary calculi; Z20.822 Contact with and (suspected) exposure to COVID-19
CPT/HCPCS: 36415; 74176; 80053; 81001; 83735; 85025; 87086; 87635; 96361; 96374; 99284; 99291; J1885

== ENCOUNTER → 2021-07-16 13:27 | Outpatient (BNVA) | payer MEDICARE, SELFPAY | PROVIDERS: PCP Internal Medicine; Visit Provider Urology | DX: N40.1 Benign prostatic hyperplasia with lower urinary tract symptoms (principal); N13.8 Other obstructive and reflux uropathy; R33.8 Other retention of urine; N20.0 Calculus of kidney | CPT/HCPCS: 52000; 99212 ==

== ENCOUNTER 2021-11-21 09:40 | Emergency (ER) | payer MEDICARE, SELFPAY ==
[2021-11-21 09:47] VITALS: BP 153/93; PULSE 89; RESP 16; TEMP 36.7; O2SAT 96; BMI 26.6
[2021-11-21 10:17] LABS: Appearance Urine CLOUDY; Color Urine BROWN; Glucose Urine UA NEG (NEG); Leukocyte Esterase Urine TRACE (NEG); Nitrite Urine POS (NEG); Specific Gravity - Urine >= 1.030 (1.005-1.025); UACC Culture Trigger YES; Urine Blood 3+ (NEG); Urine Ketones 5 MG/DL (NEG); Urine Protein 3+ MG/DL (NEG-TRACE)
[2021-11-21 10:25] LABS: PH 6.5 (5.0-8.0)
[2021-11-21 10:26] LABS: Amorphous Sediment Urine TRACE /LPF; Bacteria Urine TRACE /LPF; RBC Urine TNTC /HPF (0); Squamous Epithelial Cell Urine TRACE /LPF; WBC Urine 0 /HPF (0-4)
--- NOTE | 2021-11-21 11:46 | ED.MALEGU ---
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 Patient states that he has an extensive urologic history for which he follows with Dr. Whitley. Patient states that he was given an antibiotic yesterday but does not feel like it is working. Patient states that he has not made it into his urologist for this yet. Patient denies any dizziness, lightheadedness, abdominal pain, nausea, vomiting, fever, chills, blurry vision, double vision, loss of vision, chest pain, difficulty breathing, shortness of breath, back pain, night sweats, pain with urination, increased urinary frequency, increased urinary urgency, blood in his stool, syncope or a near syncopal episode, recent trauma or falls, bowel incontinence, bladder incontinence, bowel retention, bladder retention, or any other complaints at this time. MD Complaint: other (hematuria) Onset (ago): day(s) Duration: intermittent Severity: mild Relieving factors: none Exacerbating factors: none Associated symptoms: Reports blood in urine Related Data Home Medications Medication Instructions Recorded Confirmed albuterol sulfate 90 mcg/actuation 2 puff PO Q4-6H PRN 08/27/20 aerosol inhaler atorvastatin 40 mg tablet mg PO 08/27/20 hydrochlorothiazide 12.5 mg tablet 12.5 mg PO DAILY 08/27/20 omeprazole 40 mg capsule,delayed 40 mg PO DAILY 08/27/20 release peg-electrolyte solution 420 gram ml PO 08/27/20 oral solution zolpidem 5 mg tablet 5 mg PO BEDTIME 08/27/20 bupropion HCl 100 mg tablet,12 hr 200 mg PO DAILY 04/22/21 sustained-release buspirone 5 mg tablet 5 mg PO BID 04/22/21 ergocalciferol (vitamin D2) 1,250 1,250 mcg PO QWEEK 04/22/21 mcg (50,000 unit) capsule escitalopram oxalate 5 mg tablet 5 mg PO DAILY 04/22/21 fluticasone propionate 100 1 inh PO BID 04/22/21 mcg/actuation blister powder for inhalation (Flovent Diskus) hydroxyzine HCl 25 mg tablet 25 mg PO DAILY PRN 04/22/21 simethicone 180 mg capsule 180 mg PO TID 04/22/21 ibuprofen 600 mg tablet 600 mg PO TID 07/16/21 Previous Rx's Medication Instructions Recorded simethicone 125 mg chewable tablet 125 mg PO QID PRN 30 Days #120 tab 07/18/20 (Gas Relief (simethicone)) ciprofloxacin HCl 500 mg tablet 500 mg PO BID #14 tab 08/17/20 (Cipro) tamsulosin 0.4 mg capsule (Flomax) 0.4 mg PO DAILY #30 cap 08/17/20 terazosin 10 mg capsule 10 mg PO BEDTIME 90 Days #90 cap 04/22/21 ondansetron 4 mg disintegrating 4 mg PO ONCE PRN #10 tab 06/18/21 tablet cephalexin 500 mg capsule 500 mg PO Q6H 7 Days #28 cap 11/21/21 Allergies Allergy/AdvReac Type Severity Reaction Status Date / Time acetaminophen [Percocet] Allergy Unknown hives Verified 11/21/21 09:50 oxycodone [From PERCOCET] Allergy Unknown HIVES Verified 11/21/21 09:50 Review of Systems Constitutional: Constitutional: Reports no additional constitutional complaints, Denies chills, Denies fever(s) and Denies night sweats Eyes: Eyes: Reports no additional eye complaints, Denies blurry vision, Denies change in vision, Denies diplopia, Denies eye discharge, Denies loss of vision and Denies eye pain ENT: Denies dizziness Cardiovascular: Cardiovascular: Reports no additional cardiovascular complaints, Denies chest pain, Denies lightheadedness, Denies Loss of Consciousness and Denies dyspnea Respiratory: Respiratory: Reports no additional respiratory complaints and Denies dyspnea Gastrointestinal: Gastrointestinal: Reports no additional gastrointestinal complaints, Denies abdominal pain, Denies melena, Denies hematochezia, Denies change in bowel habits and Denies change in stool character Genitourinary: Genitourinary: Reports no additional male genitourinary complaints, Reports hematuria, Denies oliguria, Denies difficulty urinating, Denies dysuria, Denies urinary frequency, Denies urinary hesitancy, Denies urinary incontinence and Denies urinary urgency Musculoskeletal: Musculoskeletal: Reports no additional musculoskeletal complaints, Denies numbness and Denies tingling Neurologic: Denies dizziness, Denies loss of vision, Denies numbness and Denies tingling Psychiatric: Psychiatric: Reports no additional psychiatric complaints Endocrine: Endocrine: Reports no additional endocrine complaints Hematologic/Lymphatic: Hematologic/Lymphatic: Reports no additional hematologic/lymphatic complaints Allergic/Immunologic: Allergic/Immunologic: Reports no additional allergic/immunologic complaints [facility] Past Medical History Attestation statement: The following information was validated with the patient. Source: old records reviewed Medical History Asthma BPH loc w urin obs/LUTS Esophageal dysphagia Hematuria HTN (hypertension) PVD (peripheral vascular disease) Vitamin D deficiency Surgical History History of surgery Hx of prostatectomy Social History Social History Alcohol intake: unknown Patient Tobacco Use Status: Former Tobacco user Advance Directives: No Advance Directives Information Provided: Yes Physical Exam Vital Signs: Vital Signs: Last Vital Signs Temp 97.7 F 11/21/21 12:11 Pulse 69 11/21/21 12:11 Resp 16 11/21/21 12:11 BP 130/87 11/21/21 12:11 Pulse Ox 97 11/21/21 12:11 BMI result Body Mass Index 26.6 Const: General: cooperative, no acute distress, alert and awake Nutritional Appearance: well nourished Orientation/consciousness: patient oriented x3 Limitations: no limitations HEENT: Head: Yes normal to inspection and Yes atraumatic Ears: hearing grossly normal bilaterally and external ears normal General nose exam: Normal external nose present, no nasal discharge noted and no epistaxis Face and sinus: Yes normal facial exam, No abrasion and No laceration Mouth: Normal oral and palatal mucosa present, no drooling and no muffled voice Eyes: General: appearance normal, both eyes and all related structures Periorbital: periorbital findings normal Eyelids: Yes eyelids normal Conjunctivae: conjunctivae normal Pupils: Equal, round and reactive pupils present EOM: EOMs intact bilaterally Neck: Neck: Yes normal visual inspection, Yes full ROM and Yes no lymphadenopathy Chest: Chest palpation & inspection: normal inspection of the chest Resp: Effort & Inspection: normal respiratory effort and able to speak in complete sentences Auscultation: clear to auscultation bilaterally Cardio: Rate: regular rate Rhythm: regular rhythm GI: Inspection: Yes normal to inspection Neuro: General: patient oriented x3 and moves all extremities Cranial nerves: Yes Equal, round and reactive pupils present Cognition (Neuro): normal cognition Motor exam (neuro): 5/5 motor strength present throughout Sensory Exam: Normal double simultaneous stimulation for sensation Coordination: [id number] test normal Extrem: General: Yes normal to inspection, Yes full ROM and Yes capillary refill normal Psych: Appearance: grossly normal Mental Status: mental status grossly normal Affect: normal affect Attitude: cooperative Thought process: Normal thought process present Thought content: Normal thought content present Insight: Good insight present (Psych) MDM - Male Genitourinary MDM Narrative Medical decision making narrative: Patient is a 71 year old male presenting to the emergency department today with blood in his urine. Patient's physical exam was unremarkable. Patient's urine showed a significant amount of blood and possible infection. I explained my physical exam findings as well as all test results to the patient. I answered all questions asked by the patient. I stressed the importance of the patient taking her medication as prescribed. I stressed the importance of the patient following up with her primary care provider. I stressed the importance of the patient returning to the emergency department immediately if her symptoms were to worsen or if she were to develop any dizziness, shortness of breath, difficulty breathing, chest pain, blurry vision, loss of vision, nausea, vomiting, abdominal pain, fever, chills, back pain, or any other complaints. Patient verbalized agreement and understanding with this treatment plan and discharge. Differential Diagnosis Differential diagnosis: Likely urinary tract infection (hematuria) Medical Records Attestation: I reviewed the patient's medical records. Lab Data Attestation: I reviewed the patient's lab results. Labs: Lab Results 11/21/21 Range/Units 09:57 Urine Color BROWN A Urine Appearance CLOUDY Urine pH 6.5 (5.0-8.0) Ur Specific [place] >= 1.030 H (1.005-1.025) Urine Protein 3+ H (NEG-TRACE) MG/DL Urine Glucose (UA) NEG (NEG) MG/DL Urine Ketones 5 (NEG) MG/DL Urine Blood 3+ H (NEG) Urine Nitrite POS H (NEG) Ur Leukocyte Esterase TRACE H (NEG) Urine RBC TNTC H (0) /HPF Urine WBC 0 (0-4) /HPF Ur Squamous Epith Cells TRACE /LPF Amorphous Sediment TRACE /LPF Urine Bacteria TRACE /LPF Discharge Plan Discharge Clinical Impression: Urinary tract infection, Cystitis, BPH (benign prostatic hyperplasia) Patient Disposition: Home, Self-Care Instructions: Urinary Tract Infection in Men (DC) Additional Instructions: Follow up with your primary care provider and urologist. Return to the emergency department immediately if your symptoms worsen or if you develop any dizziness, shortness of breath, difficulty breathing, chest pain, blurry vision, loss of vision, nausea, vomiting, abdominal pain, fever, chills, back pain, or any other complaints. Prescriptions: New cephalexin 500 mg capsule 500 mg PO Q6H 7 Days Qty: 28 0RF Discontinued cefuroxime axetil 250 mg tablet 250 mg PO BID 7 Days Qty: 14 0RF No Action simethicone [Gas Relief (simethicone)] 125 mg tablet,chewable 125 mg PO QID PRN (Reason: abdominal distention) 30 Days Qty: 120 6RF tamsulosin [Flomax] 0.4 mg capsule 0.4 mg PO DAILY Qty: 30 0RF ciprofloxacin HCl [Cipro] 500 mg tablet 500 mg PO BID Qty: 14 0RF ondansetron 4 mg tablet,disintegrating 4 mg PO ONCE PRN (Reason: nausea and vomiting) Qty: 10 0RF zolpidem 5 mg tablet 5 mg PO BEDTIME 0RF albuterol sulfate 90 mcg/actuation HFA aerosol inhaler 2 puff PO Q4-6H PRN0RF hydrochlorothiazide 12.5 mg tablet 12.5 mg PO DAILY 0RF peg-electrolyte soln 420 gram recon soln PO 0RF atorvastatin 40 mg tablet PO 0RF omeprazole 40 mg capsule,delayed release(DR/EC) 40 mg PO DAILY 0RF ergocalciferol (vitamin D2) 1,250 mcg (50,000 unit) capsule 1,250 mcg PO QWEEK 0RF hydroxyzine HCl 25 mg tablet 25 mg PO DAILY PRN0RF Flovent Diskus 100 mcg/actuation blister with device 1 inh PO BID 0RF bupropion HCl 100 mg tablet sustained-release 12 hr 200 mg PO DAILY 0RF simethicone 180 mg capsule 180 mg PO TID 0RF escitalopram oxalate 5 mg tablet 5 mg PO DAILY 0RF buspirone 5 mg tablet 5 mg PO BID 0RF terazosin 10 mg capsule 10 mg PO BEDTIME 90 Days Qty: 90 3RF ibuprofen 600 mg tablet 600 mg PO TID 0RF Referrals: Niki Ramos MD [Primary Care Provider] - Gilles Whitley MD [Physician] - Interventions: ED Discharge Assessment Last Done: 11/21/21 12:45 Discharge Date/Time: 11/21/21 12:46 Print Language: Latvian
[2021-11-21 12:11] VITALS: BP 130/87; PULSE 69; RESP 16; TEMP 36.5; O2SAT 97
== END 2021-11-21 12:46 | disposition home or self-care (01) ==
PROVIDERS: Emergency Provider Emergency Medicine Emergency Medical Services; PCP Internal Medicine
DX: N30.91 Cystitis, unspecified with hematuria (principal); N40.0 Benign prostatic hyperplasia without lower urinary tract symptoms; I10 Essential (primary) hypertension; J45.909 Unspecified asthma, uncomplicated
CPT/HCPCS: 81001; 87086; 99283

== ENCOUNTER 2022-02-03 07:42 | Emergency (ER) | payer MEDICARE, SELFPAY ==
[2022-02-03] VITALS (10 sets, daily range): BP systolic 103–127; BP diastolic 62–76; PULSE 66–84; RESP 12–20; TEMP 36.4–37; O2SAT 95–98; BMI 25.0
--- NOTE | ~2022-02-03 | CT_ITS ---
EXAMINATION: CT ABDOMEN AND PELVIS WITHOUT CONTRAST CLINICAL INFORMATION: Lower abdominal pain and hematuria. Evaluate for kidney stone. COMPARISON: Previous CT of the abdomen and pelvis most recent June 2021 TECHNIQUE: Multidetector volumetric imaging was performed from the superior aspect of the liver through the pubic symphysis. Sagittal and coronal reformatted images were obtained on the technologist's workstation. This CT examination was performed using dose optimization techniques as appropriate, variously including the following: *Automated exposure control *Adjustment of mA and/or kV according to patient size (this includes techniques or standardized protocols for targeted exams where dose is matched to indication/reason for exam; i.e. extremities or head) *Use of iterative reconstruction technique DLP: 408 mGy-cm FINDINGS: LUNG BASES: The visualized lung bases are unremarkable. LIVER, GALLBLADDER, AND BILIARY TREE: The liver is normal in size, shape, and attenuation. No focal hepatic lesion or biliary ductal dilatation is present. The gallbladder is unremarkable with no evidence of radiopaque gallstones, gallbladder wall thickening, or obvious pericholecystic inflammatory changes. PANCREAS: Unremarkable. SPLEEN: Unremarkable. ADRENAL GLANDS: Unremarkable. KIDNEYS AND URETERS: There are small nonobstructing bilateral renal stones, left greater than right.. There is a 1 cm low-attenuation lesion in right kidney probably representing a cyst. There is increased attenuation in the anterior cortex of the lower pole right kidney measuring 4 mm questionable cortical pelvis. No hydronephrosis, ureteral dilatation or ureteral stone is seen. BLADDER: There is a amorphous appearing increased attenuation in the bladder questionable for a blood clot. It is difficult to exclude a bladder mass. The prostate gland is enlarged and protrudes into the base of the bladder. GASTROINTESTINAL TRACT: The small and large bowel are otherwise unremarkable. The appendix is unremarkable. ABDOMINAL WALL: LYMPH NODES: Normal. VASCULAR: There is a right common iliac artery aneurysm that appears unchanged. This measures up to 2.6 cm. The descending thoracic aorta is tortuous PELVIC VISCERA: The prostate gland is enlarged and protrudes into the base of the bladder. Prostate gland measures 5.4 x 5.7 cm. OSSEOUS STRUCTURES: There are degenerative changes of the spine. There are stable sclerotic lesions in the spine. 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 CT/CT abdomen pelvis wo con IMPRESSION: Bilateral small nonobstructing renal stones. Amorphous high attenuation in the bladder questionable for blood clot. It is difficult to exclude a focal bladder mass. Follow-up bladder imaging or cystoscopy recommended. Enlarged prostate gland that protrudes into the base of the bladder. Stable right common iliac artery aneurysm measuring 2.6 cm. Fleischner guidelines were followed.
[2022-02-03 08:25] LABS: MANUAL DIFF FLAG NO
[2022-02-03 08:31] LABS: Basophils Percent Auto 0.5 % (0-2); Eosinophils Absolute Auto 0.1 X10*3/uL (0.0-0.4); Eosinophils Percent Auto 1.9 % (0-4); Hematocrit 41.2 % (42.0-52.0); Hemoglobin 13.6 g/dl (14.0-18.0); Imm Gran Abs Auto 0.01 X10*3/uL (0.00-0.03); Imm Gran Pct Auto 0.3 % (0.0-0.4); Lymphocytes Absolute Auto 0.7 X10*3/uL (1.2-4.9); Lymphocytes Percent Auto 19.1 % (20-40); Mean Corpuscular Hemoglobin 28.4 pg (27.0-33.0); Monocytes Absolute Auto 0.3 X10*3/uL (0.1-1.2); Monocytes Percent Auto 7.1 % (2-11); Neutrophils Absolute Auto 2.6 x10*3/uL (2.0-8.3); Neutrophils Percent Auto 71.1 % (45-73); Platelet Count 179 X10*3/uL (160-400); Red Blood Count 4.79 X10*6/uL (4.60-5.80); Red Cell Distribution Width 12.3 % (11.0-16.0); White Blood Count 3.7 X10*3/uL (4.8-10.8)
[2022-02-03 08:32] LABS: Appearance Urine TURBID; Color Urine RED; Specific Gravity - Urine 1.015 (1.005-1.025); Urine Blood 3+ (NEG)
[2022-02-03 08:34] LABS: UACC Culture Trigger NO
[2022-02-03 08:35] LABS: RBC Urine TNTC /HPF (0)
[2022-02-03 08:43] LABS: Alanine Aminotransferase 10 U/L (0-40); Albumin Level 4.6 g/dL (3.5-5.0); Alkaline Phosphatase 42 U/L (39-117); Anion Gap 14 (12-20); Aspartate Amino Transferase 16 U/L (5-37); Bilirubin Total 0.9 mg/dL (0.0-1.0); Blood Urea Nitrogen 14 mg/dL (9-16); Calcium 9.5 mg/dL (8.4-10.2); Carbon Dioxide 28 mmol/L (22-29); Chloride 104 mmol/L (96-108); Creatinine Clr Calc Pharmacy 73.6; Estimated Glomerular Filt Rate > 60; Glucose Random 96 mg/dL (60-115); Potassium 4.3 mmol/L (3.3-5.1); Sodium 142 mmol/L (135-145); Total Protein 6.9 g/dL (6.5-8.0)
[2022-02-03 10:00] LABS: Appearance Urine TURBID; Color Urine RED; PH 6.5 (5.0-8.0); Urine Blood 3+ (NEG)
[2022-02-03 10:02] LABS: UACC Culture Trigger NO
[2022-02-03 10:11] LABS: RBC Urine TNTC /HPF (0)
--- NOTE | 2022-02-03 10:58 | PC.NURSE ---
pt voiding radha red blood.
--- NOTE | 2022-02-03 11:38 | ED.MALEGU ---
HPI - Male Genitourinary General Chief complaint: Urogenital-Male Stated complaint: Blood in urine Time Seen by Provider: 02/03/22 09:11 Source: patient Mode of arrival: ambulatory Limitations: language barrier (Burkinan-speaking) History of Present Illness HPI Narrative: 71-year-old male with a past medical history of asthma, hypertension, BPH, laser prostatectomy 05/2018 with postoperative hematuria with admission at that time for CBI currently being followed by Dr. Whitley, who is recently seen here on 11/21/2021 for similar presentation and had a UTI placed on Keflex reports symptoms completely resolved presenting to the ED with complaints of gross hematuria since yesterday worse today with associated dysuria and suprapubic abdominal pain. Denies any fevers, chills, dizziness, headaches, neck pain/stiffness, trouble swallowing or breathing, chest pain or shortness of breath, nausea/vomiting, flank pain, back pain, abnormal penile discharge, rashes or lesions to the penile area, diarrhea constipation, black or bloody stools, recent travel or sick contacts, recent trauma to the penile area or any other symptoms complaints or concerns at this time. MD Complaint: dysuria (/hematuria) Onset (ago): day(s) (Since last night worse this morning) Duration: constant and progressively worsening Location: penis Severity: severe Quality: burning Relieving factors: none Exacerbating factors: urination Associated symptoms: Reports urinary retention, blood in urine and dysuria Related Data Home Medications Medication Instructions Recorded Confirmed albuterol sulfate 90 mcg/actuation 2 puff PO Q4-6H PRN 08/27/20 aerosol inhaler atorvastatin 40 mg tablet mg PO 08/27/20 hydrochlorothiazide 12.5 mg tablet 12.5 mg PO DAILY 08/27/20 omeprazole 40 mg capsule,delayed 40 mg PO DAILY 08/27/20 release peg-electrolyte solution 420 gram ml PO 08/27/20 oral solution zolpidem 5 mg tablet 5 mg PO BEDTIME 08/27/20 bupropion HCl 100 mg tablet,12 hr 200 mg PO DAILY 04/22/21 sustained-release buspirone 5 mg tablet 5 mg PO BID 04/22/21 ergocalciferol (vitamin D2) 1,250 1,250 mcg PO QWEEK 04/22/21 mcg (50,000 unit) capsule escitalopram oxalate 5 mg tablet 5 mg PO DAILY 04/22/21 fluticasone propionate 100 1 inh PO BID 04/22/21 mcg/actuation blister powder for inhalation (Flovent Diskus) hydroxyzine HCl 25 mg tablet 25 mg PO DAILY PRN 04/22/21 simethicone 180 mg capsule 180 mg PO TID 04/22/21 ibuprofen 600 mg tablet 600 mg PO TID 07/16/21 Lactobacil rhamnosus GG 10 billion 1 cap PO TID 12/17/21 cell-inulin 200 mg sprinkle capsule ([facility]) buspirone 10 mg tablet 10 mg PO BID anxiety 12/17/21 escitalopram oxalate 10 mg tablet 10 mg PO DAILY 12/17/21 Previous Rx's Medication Instructions Recorded simethicone 125 mg chewable tablet 125 mg PO QID PRN abdominal 07/18/20 (Gas Relief (simethicone)) distention 30 days #120 tabs ciprofloxacin HCl 500 mg tablet 500 mg PO BID #14 tabs 08/17/20 (Cipro) tamsulosin 0.4 mg capsule (Flomax) 0.4 mg PO DAILY #30 caps 08/17/20 terazosin 10 mg capsule 10 mg PO BEDTIME 90 days #90 caps 04/22/21 ondansetron 4 mg disintegrating 4 mg PO ONCE PRN nausea and 06/18/21 tablet vomiting #10 tabs cephalexin 500 mg capsule 500 mg PO Q6H 7 days #28 caps 11/21/21 cephalexin 500 mg capsule 500 mg PO Q6H uti 7 days #28 caps 02/03/22 tranexamic acid 650 mg tablet 1,300 mg PO TID irregular prostate 02/03/22 bleeding 3 days #18 tabs Allergies Allergy/AdvReac Type Severity Reaction Status Date / Time acetaminophen [Percocet] Allergy Unknown hives Verified 12/17/21 10:50 oxycodone [From PERCOCET] Allergy Unknown HIVES Verified 12/17/21 10:50 Review of Systems Review of Systems: Constitutional : No Weight loss, No Fever, No Chills, No Night Sweats, No Fatigue, NoMalaise ENT/Mouth: No ear pain, No sore throat, No Difficulty swallowing Cardiovascular : No Chest Pain, No SOB, No Dyspnea on Exertion, No Orthopnea, NoEdema, No Palpitations Respiratory : No Cough, No Sputum, No Wheezing, No Dyspnea Gastrointestinal : No Nausea, No Vomiting, No Diarrhea, + abdominal Pain, No Hematochezia, No Melena Genitourinary : + gross hematuria/dysuria/urinary retention, No testicular pain, No Urinary Frequency, No Urinary Incontinence, No Urgency, No Flank Pain Musculoskeletal : No joint pain, No Myalgias, No Joint Swelling Skin : No Skin Lesions, No rash Neuro : No Weakness, No Numbness, No Paresthesias, No Loss of Consciousness, NoDizziness, No Headache Psych : No Social Issues, Heme/Lymph: No Bruising, No Bleeding,No Lymphadenopathy Endocrine : No Polyuria, No Polydipsia, No Temperature Intolerance PATIENT DENIES ANY THOUGHTS OF STDS Yes all other systems are reviewed and are negative [facility] Past Medical History Attestation statement: The following information was validated with the patient. Source: old records reviewed and nursing notes reviewed Medical History Asthma BPH loc w urin obs/LUTS Esophageal dysphagia Hematuria HTN (hypertension) PVD (peripheral vascular disease) Vitamin D deficiency Surgical History History of surgery Hx of prostatectomy Social History Social History Alcohol intake: never Patient Tobacco Use Status: Former Tobacco user Use of substances other than those prescribed or required for medical reasons: No Advance Directives: No Advance Directives Information Provided: Yes Physical Exam Vital Signs: Vital Signs: Last Vital Signs Temp 98.5 F 02/03/22 15:39 Pulse 72 02/03/22 17:18 Resp 13 02/03/22 17:18 BP 103/62 02/03/22 17:18 Pulse Ox 95 02/03/22 17:18 O2 Del Method 02/03/22 17:18 BMI result Body Mass Index 25.0 vital signs have been reviewed as normal and appeared to be correct. Blood pressure normal. Heart rate normal. Respiration rate normal. Temperature normal. Oxygen saturation normal. Appearance: Alert. Oriented X3. No acute distress. Head: Normal external exam. Normocephalic. Eyes: PERRLA. EOMI. Conjunctiva and sclera normal. Eyelids normal. ENT: Pharynx normal. Uvula midline. Moist mucous membranes. No trismus noted. No drooling noted. No muffled voice noted. Neck: Normal inspection. Neck supple. FROM. No adenopathy. No meningeal signs. CVS: Normal heart rate and rhythm. Heart sound normal. No murmurs noted. Pulses normal throughout. Respiratory: No respiratory distress. Painless inspiration. Breath sounds normal. No wheezes/rales/rhonchi noted. Chest nontender. No accessory muscle usage noted or decreased air movement noted. Abdomen: Soft and mild tenderness suprapubically. Nondistended. No guarding. No rigidity. Bowel sounds normal in all 4 quadrants. No distention noted. No organomegaly noted. No visible injury noted. No rebound tenderness. Negative Rovsing sign. Negative obturator's sign. Negative psoas sign. Negative Bernabe sign. Back: No CVA tenderness. Full range of motion noted. Skin: Skin warm and dry. Normal skin color. Normal skin turgor. No rashes/lesions/lacerations noted. Extremities: Extremities exhibit normal range of motion. Extremities nontender. Neuro: Oriented X 3. No motor deficit. No sensory deficit. Reflexes normal. Normal steady gait. CN's II-XII intact bilaterally? Course Course Course Narrative: 9:20am - 71-year-old male with a past medical history of asthma, hypertension, BPH, laser prostatectomy 05/2018 with postoperative hematuria with admission at that time for CBI currently being followed by Dr. Whitley, who is recently seen here on 11/21/2021 for similar presentation and had a UTI placed on Keflex reports symptoms completely resolved presenting to the ED with complaints of gross hematuria since yesterday worse today with associated dysuria and suprapubic abdominal pain. Plan: Labs were obtained while the patient was in the waiting room patient with a white blood cell count of 3000 which is similar compared to prior. Mild anemia with an H&H of 13.6/41.2. Otherwise all other labs are within normal limits. UA revealed blood otherwise unable to rule out UTI due to too much blood in urine. Therefore at this time will obtain a CT scan abdomen pelvis without IV contrast and re-evaluate. Reevaluation(s) Reevaluation #1: - CT scan abdomen pelvis without IV contrast revealed bilateral small nonobstructing renal stones. Amorphous high attenuation in the bladder questionable for blood clot. It is difficult to exclude a focal bladder mass. Follow-up bladder imaging or cystoscopy recommended. Enlarged prostate gland that protrudes into the base of the bladder. Stable right common iliac artery aneurysm measuring 2.6 cm. Fleischner guidelines were followed. - therefore I consulted with Dr. Whitley he recommended placing a Fang catheter with irrigation/CBI. With outpatient follow-up. Therefore I discussed this with the patient he is agreeable although nervous about going home with a Fang catheter will re-evaluate after Fang catheter is in place and CBI. Time: 11:46 Reevaluation #2: - we were not getting any flow with the irrigation with CBI therefore Dr. Whitley had to come and he removed the CBI and placed a new 1 and a large clot was removed and now we have good flow at this time will give try stomach acid IV 1000 mg and belladonna MD for pain this is with Dr. Whitley recommended. Then he reported that 1 to give the Tranexamic acid that I should send him home with Keflex and Tranexamic acid with follow-up as an outpatient and we can remove the Fang due to patient does not want Fang in place. Dr. Whitley is agreeable to this. Therefore re-evaluate after completion of CBI and IV Tranexamic acid Time: 16:21 Reevaluation #3: Plan is to complete CBI and IV tranexamic acid then patient will have his CBI/Fang removed due to he does not want to go home with it and he will be discharged with p.o. antibiotics and instructions to follow-up with Dr. Whitley. Patient understands agrees with this plan. Dr. Plummer to help nurse removed CBI/Fang. MDM - Male Genitourinary Medical Records Attestation: I reviewed the patient's medical records. Lab Data Attestation: I reviewed the patient's lab results. Result diagrams: 02/03/22 08:18 02/03/22 08:18 Labs: Lab Results 02/03/22 02/03/22 02/03/22 Range/Units 08:18 08:18 08:18 WBC 3.7 L (4.8-10.8) X10*3/uL RBC 4.79 (4.60-5.80) X10*6/uL Hgb 13.6 L (14.0-18.0) g/dl Hct 41.2 L (42.0-52.0) % MCV 86.0 (80.0-98.0) fL MCH 28.4 (27.0-33.0) pg MCHC 33.0 (31.0-36.0) g/dl RDW 12.3 (11.0-16.0) % Plt Count 179 (160-400) X10*3/uL MPV 10.0 (9.4-12.4) fL Immature Gran % (Auto) 0.3 (0.0-0.4) % Neut % (Auto) 71.1 (45-73) % Lymph % (Auto) 19.1 L (20-40) % [place] % (Auto) 7.1 (2-11) % Eos % (Auto) 1.9 (0-4) % Baso % (Auto) 0.5 (0-2) % Lymph # (Auto) 0.7 L (1.2-4.9) X10*3/uL [place] # (Auto) 0.3 (0.1-1.2) X10*3/uL Eos # (Auto) 0.1 (0.0-0.4) X10*3/uL Baso # (Auto) 0.0 (0.0-0.2) X10*3/uL Abs Immat Gran (auto) 0.01 (0.00-0.03) X10*3/uL Absolute Neuts (auto) 2.6 (2.0-8.3) x10*3/uL Absolute Nucleated RBC 0.000 (0.0-0.012) X10*3/uL Nucleated RBC % (auto) 0.0 (0.0-0.2) /100WBC Sodium 142 (135-145) mmol/L Potassium 4.3 (3.3-5.1) mmol/L Chloride 104 (96-108) mmol/L Carbon Dioxide 28 (22-29) mmol/L Anion Gap 14 (12-20) BUN 14 (9-16) mg/dL Creatinine 0.83 (0.5-1.4) mg/dL Estim Creat Clear Calc 73.6 Estimated GFR > 60 Random Glucose 96 (60-115) mg/dL Calcium 9.5 (8.4-10.2) mg/dL Total Bilirubin 0.9 (0.0-1.0) mg/dL AST 16 D (5-37) U/L ALT 10 (0-40) U/L Alkaline Phosphatase 42 (39-117) U/L Total Protein 6.9 (6.5-8.0) g/dL Albumin 4.6 (3.5-5.0) g/dL Urine Color RED A Urine Appearance TURBID Urine pH 7.0 (5.0-8.0) Ur Specific Wallace 1.015 (1.005-1.025) Urine Protein SEE NOTE (NEG-TRACE) MG/DL Urine Glucose (UA) SEE NOTE (NEG) MG/DL Urine Ketones SEE NOTE (NEG) MG/DL Urine Blood 3+ H (NEG) Urine Nitrite SEE NOTE (NEG) Ur Leukocyte Esterase SEE NOTE (NEG) Urine RBC TNTC H (0) /HPF Urine WBC 1-4 (0-4) /HPF Ur Squamous Epith Cells NONE /LPF Urine Bacteria NONE /LPF 02/03/22 Range/Units 09:28 WBC (4.8-10.8) X10*3/uL RBC (4.60-5.80) X10*6/uL Hgb (14.0-18.0) g/dl Hct (42.0-52.0) % MCV (80.0-98.0) fL MCH (27.0-33.0) pg MCHC (31.0-36.0) g/dl RDW (11.0-16.0) % Plt Count (160-400) X10*3/uL MPV (9.4-12.4) fL Immature Gran % (Auto) (0.0-0.4) % Neut % (Auto) (45-73) % Lymph % (Auto) (20-40) % [place] % (Auto) (2-11) % Eos % (Auto) (0-4) % Baso % (Auto) (0-2) % Lymph # (Auto) (1.2-4.9) X10*3/uL [place] # (Auto) (0.1-1.2) X10*3/uL Eos # (Auto) (0.0-0.4) X10*3/uL Baso # (Auto) (0.0-0.2) X10*3/uL Abs Immat Gran (auto) (0.00-0.03) X10*3/uL Absolute Neuts (auto) (2.0-8.3) x10*3/uL Absolute Nucleated RBC (0.0-0.012) X10*3/uL Nucleated RBC % (auto) (0.0-0.2) /100WBC Sodium (135-145) mmol/L Potassium (3.3-5.1) mmol/L Chloride (96-108) mmol/L Carbon Dioxide (22-29) mmol/L Anion Gap (12-20) BUN (9-16) mg/dL Creatinine (0.5-1.4) mg/dL Estim Creat Clear Calc Estimated GFR Random Glucose (60-115) mg/dL Calcium (8.4-10.2) mg/dL Total Bilirubin (0.0-1.0) mg/dL AST (5-37) U/L ALT (0-40) U/L Alkaline Phosphatase (39-117) U/L Total Protein (6.5-8.0) g/dL Albumin (3.5-5.0) g/dL Urine Color RED A Urine Appearance TURBID Urine pH 6.5 (5.0-8.0) Ur Specific Wallace 1.020 (1.005-1.025) Urine Protein SEE NOTE (NEG-TRACE) MG/DL Urine Glucose (UA) SEE NOTE (NEG) MG/DL Urine Ketones SEE NOTE (NEG) MG/DL Urine Blood 3+ H (NEG) Urine Nitrite SEE NOTE (NEG) Ur Leukocyte Esterase SEE NOTE (NEG) Urine RBC TNTC H (0) /HPF Urine WBC 1-4 (0-4) /HPF Ur Squamous Epith Cells NONE /LPF Urine Bacteria NONE /LPF Imaging Data CT scan abdomen pelvis without IV contrast: Attestation: I personally reviewed and interpreted this imaging study as follows: Radiologist's impression: FINDINGS: LUNG BASES: The visualized lung bases are unremarkable.? LIVER, GALLBLADDER, AND BILIARY TREE: The liver is normal in size, shape, and attenuation. No focal hepatic lesion or biliary ductal dilatation is present. The gallbladder is unremarkable with no evidence of radiopaque gallstones, gallbladder wall thickening, or obvious pericholecystic inflammatory changes.? PANCREAS: Unremarkable.? SPLEEN: Unremarkable.? ADRENAL GLANDS: Unremarkable.? KIDNEYS AND URETERS: There are small nonobstructing bilateral renal stones, left greater than right.. There is a 1 cm low-attenuation lesion in right kidney probably representing a cyst. There is increased attenuation in the anterior cortex of the lower pole right kidney measuring 4 mm questionable cortical pelvis. No hydronephrosis, ureteral dilatation or ureteral stone is seen. BLADDER: There is a amorphous appearing increased attenuation in the bladder questionable for a blood clot. It is difficult to exclude a bladder mass. The prostate gland is enlarged and protrudes into the base of the bladder. GASTROINTESTINAL TRACT: The small and large bowel are otherwise unremarkable. The appendix is unremarkable.? ABDOMINAL WALL: LYMPH NODES: Normal. VASCULAR: There is a right common iliac artery aneurysm that appears unchanged. This measures up to 2.6 cm. The descending thoracic aorta is tortuous PELVIC VISCERA: The prostate gland is enlarged and protrudes into the base of the bladder. Prostate gland measures 5.4 x 5.7 cm. OSSEOUS STRUCTURES: There are degenerative changes of the spine. There are stable sclerotic lesions in the spine. 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 CT/CT abdomen pelvis wo con IMPRESSION: Bilateral small nonobstructing renal stones. Amorphous high attenuation in the bladder questionable for blood clot. It is difficult to exclude a focal bladder mass. Follow-up bladder imaging or cystoscopy recommended. Enlarged prostate gland that protrudes into the base of the bladder. Stable right common iliac artery aneurysm measuring 2.6 cm. Fleischner guidelines were followed. Critical Care Time Critical Care Time Critical Care Time: Yes Total Critical Care Time: 60 Attestation: I personally attest to this time spent taking care of the patient Discharge Plan Discharge Clinical Impression: Gross hematuria, BPH w urinary obs/LUTS, Bilateral renal stones, UTI (urinary tract infection) Patient Disposition: Home, Self-Care Instructions: Enlarged Prostate (BPH) (ED) Prescriptions: New cephalexin 500 mg capsule 500 mg PO Q6H 7 Days Qty: 28 0RF tranexamic acid 650 mg tablet 1,300 mg PO TID 3 Days Qty: 18 0RF No Action simethicone [Gas Relief (simethicone)] 125 mg tablet,chewable 125 mg PO QID PRN (Reason: abdominal distention) 30 Days Qty: 120 6RF tamsulosin [Flomax] 0.4 mg capsule 0.4 mg PO DAILY Qty: 30 0RF ciprofloxacin HCl [Cipro] 500 mg tablet 500 mg PO BID Qty: 14 0RF cephalexin 500 mg capsule 500 mg PO Q6H 7 Days Qty: 28 0RF ondansetron 4 mg tablet,disintegrating 4 mg PO ONCE PRN (Reason: nausea and vomiting) Qty: 10 0RF zolpidem 5 mg tablet 5 mg PO BEDTIME albuterol sulfate 90 mcg/actuation HFA aerosol inhaler 2 puff PO Q4-6H PRN hydrochlorothiazide 12.5 mg tablet 12.5 mg PO DAILY peg-electrolyte soln 420 gram recon soln PO atorvastatin 40 mg tablet PO omeprazole 40 mg capsule,delayed release(DR/EC) 40 mg PO DAILY ergocalciferol (vitamin D2) 1,250 mcg (50,000 unit) capsule 1,250 mcg PO QWEEK hydroxyzine HCl 25 mg tablet 25 mg PO DAILY PRN Flovent Diskus 100 mcg/actuation blister with device 1 inh PO BID bupropion HCl 100 mg tablet sustained-release 12 hr 200 mg PO DAILY simethicone 180 mg capsule 180 mg PO TID escitalopram oxalate 5 mg tablet 5 mg PO DAILY buspirone 5 mg tablet 5 mg PO BID terazosin 10 mg capsule 10 mg PO BEDTIME 90 Days Qty: 90 3RF ibuprofen 600 mg tablet 600 mg PO TID escitalopram oxalate 10 mg tablet 10 mg PO DAILY buspirone 10 mg tablet 10 mg PO BID [facility] 10 billion cell -200 mg capsule, sprinkle 1 cap PO TID Referrals: Niki Ramos MD [Primary Care Provider] - 5 days Gilles Whitley MD [Physician] - 5 days Print Language: Burkinan
[2022-02-03] MEDS: Morphine Sulfate 4 MG/ML CARTRIDGE IVPUSH (12:06)
[2022-02-03] MEDS: ondansetron HCL 4 MG/2 ML VIAL IVPUSH (12:06)
[2022-02-03] MEDS: Lidocaine HCl 2 % Urojet 10 ML JEL.PF.APP TOPICAL (12:07)
[2022-02-03] MEDS: 0.9 % Sodium Chloride 1,000 ML 999 ML IVCONT ×2 (12:07→17:21)
--- NOTE | 2022-02-03 16:25 | P.CNUR_ITS ---
History of Present Illness Consult details Consult date: 02/03/22 Narrative: Consulting complaint Hematuria Patient known to Urology. Prior prostate procedure to 2019. Prior cystoscopy e anisa 2021 for hematuria with known TURP defect. Presents to hospital with 24 history of [address]uria [address] catheter placed Difficulty with irrigation Catheter irrigated and removed as unable to place fluid through inflow port clot within inflow port line Twenty for [place]ian 3 [address] catheter placed and irrigation performed. Small clots removed. Clear with irrigation once repositioned. CT scan performed shows no upper tract abnormalities Recommendation IM dose of tranexamic acid with 4 days supply of oral tranexamic acid. Plus antibiotic. If clear with irrigation can remove catheter prior to discharge. No showed for early December visit to Urology. Should reschedule. Review of Systems Constitutional: Constitutional: Reports as per HPI and Reports no additional constitutional complaints Cardiovascular: Cardiovascular: Reports as per HPI and Reports no additional cardiovascular complaints Respiratory: Respiratory: Reports as per HPI and Reports no additional respiratory complaints Gastrointestinal: Gastrointestinal: Reports as per HPI and Reports no additional gastrointestinal complaints Genitourinary: Genitourinary: Reports as per HPI Musculoskeletal: Musculoskeletal: Reports no additional musculoskeletal complaints and Reports as per HPI Neurologic: Reports system reviewed and no additional complaints, except as documented and Reports as per HPI PMFSH Past Medical History Medical History Asthma BPH loc w urin obs/LUTS Esophageal dysphagia Hematuria HTN (hypertension) PVD (peripheral vascular disease) Vitamin D deficiency Surgical History Surgical History History of surgery Hx of prostatectomy Social History Social History Alcohol intake: never Patient Tobacco Use Status: Former Tobacco user Use of substances other than those prescribed or required for medical reasons: No Advance Directives: No Advance Directives Information Provided: Yes Meds Allergies Allergy/AdvReac Type Severity Reaction Status Date / Time acetaminophen [Percocet] Allergy Unknown hives Verified 12/17/21 10:50 oxycodone [From PERCOCET] Allergy Unknown HIVES Verified 12/17/21 10:50 Active Medications: Current Medications Tranexamic Acid 1,000 mg/ (Sodium Chloride) 260 mls @ 32.5 mls/hr IV .Q8H ONE Stop: 02/04/22 00:13 Ceftriaxone Sodium 1 gm/ (Sodium Chloride) 50 mls @ 100 mls/hr IV ONCE ONE Stop: 02/03/22 16:50 Home Medications Medication Instructions Recorded Confirmed Last Taken Type albuterol sulfate 90 mcg/actuation 2 puff PO Q4-6H PRN 08/27/20 Unknown History aerosol inhaler atorvastatin 40 mg tablet mg PO 08/27/20 Unknown History hydrochlorothiazide 12.5 mg tablet 12.5 mg PO DAILY 08/27/20 Unknown History omeprazole 40 mg capsule,delayed 40 mg PO DAILY 08/27/20 Unknown History release peg-electrolyte solution 420 gram ml PO 08/27/20 Unknown History oral solution zolpidem 5 mg tablet 5 mg PO BEDTIME 08/27/20 Unknown History bupropion HCl 100 mg tablet,12 hr 200 mg PO DAILY 04/22/21 Unknown History sustained-release buspirone 5 mg tablet 5 mg PO BID 04/22/21 Unknown History ergocalciferol (vitamin D2) 1,250 1,250 mcg PO QWEEK 04/22/21 Unknown History mcg (50,000 unit) capsule escitalopram oxalate 5 mg tablet 5 mg PO DAILY 04/22/21 Unknown History fluticasone propionate 100 1 inh PO BID 04/22/21 Unknown History mcg/actuation blister powder for inhalation (Flovent Diskus) hydroxyzine HCl 25 mg tablet 25 mg PO DAILY PRN 04/22/21 Unknown History simethicone 180 mg capsule 180 mg PO TID 04/22/21 Unknown History ibuprofen 600 mg tablet 600 mg PO TID 07/16/21 Unknown History Lactobacil rhamnosus GG 10 billion 1 cap PO TID 12/17/21 Unknown History cell-inulin 200 mg sprinkle capsule ([facility]) buspirone 10 mg tablet 10 mg PO BID anxiety 12/17/21 Unknown History escitalopram oxalate 10 mg tablet 10 mg PO DAILY 12/17/21 Unknown History Physical Exam 2 Vital Signs: Vital Signs: Last Vital Signs Temp 98.5 F 02/03/22 15:39 Pulse 75 02/03/22 15:39 Resp 20 02/03/22 15:39 BP 114/63 02/03/22 15:39 Pulse Ox 97 02/03/22 15:39 O2 Del Method 02/03/22 14:05 BMI result Body Mass Index 25.0 Const: General: cooperative, healthy appearing, comfortable and no acute distress Orientation/consciousness: patient oriented x3 HEENT: Face and sinus: Yes normal facial exam Mouth: moist mucous membranes Neck: Neck: Yes normal visual inspection, Yes full ROM and Yes trachea midline Chest: Chest palpation & inspection: normal inspection of the chest Resp: Effort & Inspection: normal respiratory effort, able to speak in complete sentences and no respiratory distress GI: Inspection: Yes normal to inspection Back/Spine/Pelvis: Cervical Spine: normal cervical lordosis Thoracic/Lumbar Spine: thoracic and lumbar spine normal to inspection Skin: General skin exam: no rashes or lesions noted Neuro: General: patient oriented x3, tone normal and moves all extremities Extrem: General: Yes normal to inspection and Yes capillary refill normal Results Labs Result diagrams: 02/03/22 08:18 02/03/22 08:18 Labs: Abnormal lab results 02/03/22 02/03/22 02/03/22 Range/Units 08:18 08:18 09:28 WBC 3.7 L (4.8-10.8) X10*3/uL Hgb 13.6 L (14.0-18.0) g/dl Hct 41.2 L (42.0-52.0) % Lymph % (Auto) 19.1 L (20-40) % Lymph # (Auto) 0.7 L (1.2-4.9) X10*3/uL Urine Color RED A RED A Urine Blood 3+ H 3+ H (NEG) Urine RBC TNTC H TNTC H (0) /HPF Short CBC 02/03/22 Range/Units 08:18 WBC 3.7 L (4.8-10.8) X10*3/uL Hgb 13.6 L (14.0-18.0) g/dl Hct 41.2 L (42.0-52.0) % Plt Count 179 (160-400) X10*3/uL BMP 02/03/22 08:18 Sodium 142 Potassium 4.3 Chloride 104 Carbon Dioxide 28 BUN 14 Creatinine 0.83 Calcium 9.5 Liver Function 02/03/22 Range/Units 08:18 Total Bilirubin 0.9 (0.0-1.0) mg/dL AST 16 D (5-37) U/L ALT 10 (0-40) U/L Alkaline Phosphatase 42 (39-117) U/L Albumin 4.6 (3.5-5.0) g/dL Urine 02/03/22 02/03/22 Range/Units 08:18 09:28 Urine Color RED A RED A Urine Appearance TURBID TURBID Urine pH 7.0 6.5 (5.0-8.0) Ur Specific [place] 1.015 1.020 (1.005-1.025) Urine Protein SEE NOTE SEE NOTE (NEG-TRACE) MG/DL Urine Glucose (UA) SEE NOTE SEE NOTE (NEG) MG/DL All other labs normal. Assessment and Plan (1) UTI (urinary tract infection): Status: Acute (2) Gross hematuria: Status: Acute (3) BPH w urinary obs/LUTS: Status: Acute Plan Hematuria management Outpatient follow-up Procedures Date of Service Date of Service: 02/03/22 Catheter Insertion (Urinary) Reason for placing: Other (Hematuria) Catheter type/location: 3-way Urethral Size (G[place]ian): 24 Results: successfully catheterized-immediate flow Comment: Irrigation performed
[2022-02-03] MEDS: cephALEXin 500 MG CAPSULE PO (16:41)
[2022-02-03] MEDS: Tranexamic Acid 1,000 MG in 0.9 % Sodium Chloride 50 ML 360 MG IV (16:41)
== END 2022-02-03 20:57 | disposition home or self-care (01) ==
PROVIDERS: Physician Assistant Medical; Emergency Provider Emergency Medicine Emergency Medical Services; PCP Internal Medicine
DX: R31.0 Gross hematuria (principal); N40.1 Benign prostatic hyperplasia with lower urinary tract symptoms; N20.0 Calculus of kidney; N39.0 Urinary tract infection, site not specified; Z46.6 Encounter for fitting and adjustment of urinary device; I10 Essential (primary) hypertension
CPT/HCPCS: 36415; 74176; 80053; 81001; 85025; 96361; 96374; 96375; 99284; 99285; J2270; J2405

== ENCOUNTER → 2022-03-17 09:45 | Outpatient (BNVA) | payer MEDICARE, SELFPAY | PROVIDERS: PCP Internal Medicine; Visit Provider Urology | DX: N40.1 Benign prostatic hyperplasia with lower urinary tract symptoms (principal); N13.8 Other obstructive and reflux uropathy; R33.8 Other retention of urine; N20.0 Calculus of kidney; Z79.899 Other long term (current) drug therapy | CPT/HCPCS: 51798; 99212 ==

== ENCOUNTER 2022-05-21 12:42 | Emergency (ER) | payer OTHER, SELFPAY ==
--- NOTE | ~2022-05-21 | CT_ITS ---
EXAMINATION: CT ANGIOGRAM OF THE CHEST WITH AND WITHOUT CONTRAST (CT PULMONARY ANGIOGRAM FOR PE) CLINICAL INFORMATION: Reason for Exam + Dimer SOB COMPARISON: Chest x-ray same date and chest x-ray 03/22/2018 TECHNIQUE: Prior to contrast administration, noncontrast localization images were obtained. Subsequently, multidetector volumetric imaging was performed from the thoracic inlet to below the diaphragms following the administration of 75 mL Omnipaque 350 intravenous contrast. No contrast reaction reported Sagittal, coronal, and MIP oblique sagittal reformatted images were obtained on the CT workstation, uploaded to PACS, and reviewed. This CT examination was performed using dose optimization techniques as appropriate, variously including the following: *Automated exposure control *Adjustment of mA and/or kV according to patient size (this includes techniques or standardized protocols for targeted exams where dose is matched to indication/reason for exam; i.e. extremities or head) *Use of iterative reconstruction technique Total exam dose-length product 241 mGy-cm FINDINGS: QUALITY OF STUDY/CONTRAST BOLUS: Satisfactory. PULMONARY ARTERIES: No central or segmental pulmonary emboli. Motion artifact reduces the sensitivity for small subsegmental pulmonary emboli. Strong clinical suspicion of pulmonary was and should prompt further evaluation such as bilateral lower extremity Doppler ultrasound for DVT or short-term follow-up pulmonary CT angiography. THORACIC AORTA: Ascending thoracic aorta upper limits of normal in caliber. Chronic ectasia of the descending thoracic aorta. LUNG: Suspect early emphysema. Correlate with smoking history. Probable bronchial wall thickening in the mid and lower lungs. No suspicious mass or consolidation. Probable atelectasis in the medial left lower lobe underlying ectatic thoracic aorta. However, evaluation of lung parenchyma is limited. Recommend follow-up low-dose noncontrast CT scan of the chest in 3-6 months time given high-risk status. PLEURA: No pleural effusion or pneumothorax. MEDIASTINUM: Normal heart size. No pericardial effusion. No hilar or mediastinal lymphadenopathy. No evidence of septal bowing or right heart strain. CHEST WALL/AXILLA: No axillary or internal mammary lymphadenopathy. OSSEOUS STRUCTURES: No acute or suspicious osseous abnormality. UPPER ABDOMEN: High density material in the stomach is presumably ingested. Atherosclerotic peripheral vascular disease. No reflux of contrast into the hepatic veins to suggest elevated right heart pressures. CT/CT angio chest PE protocol IMPRESSION: No pulmonary embolism. Exam limited by motion artifact. Strong clinical concern for pulmonary thromboembolic disease should prompt further investigation such as bilateral lower extremity Doppler ultrasound or short-term follow-up pulmonary CT angiography. Focal lung opacity in the medial left lower lobe. Follow with low-dose noncontrast chest CT in 3-6 months time. Emphysema. VTE: negative Fleischner criteria utilized.
--- NOTE | ~2022-05-21 | XR_ITS ---
EXAMINATION: XR CHEST CLINICAL INFORMATION: Short of breath COMPARISON: 03/22/2018 TECHNIQUE: 2 views of the chest were obtained. FINDINGS: The lungs are well expanded. There is no focal consolidation, edema, or effusion. No pneumothorax. The cardiomediastinal silhouette is within normal limits of size with a tortuous aorta. No acute osseous abnormality. Degenerative changes of the spine. XR/XR chest 2V IMPRESSION: Clear lungs.
[2022-05-21 13:20] VITALS: BP 141/92; PULSE 95; RESP 18; TEMP 36.8; O2SAT 97; BMI 24.2
--- NOTE | 2022-05-21 13:21 | ED_ITS ---
HPI - Chest Pain General Chief Complaint: General Medical Stated Complaint: diff breathing Time Seen by Provider: 05/21/22 18:29 Related Data Home Medications Medication Instructions Recorded Confirmed albuterol sulfate 90 mcg/actuation 2 puff PO Q4-6H PRN 08/27/20 aerosol inhaler atorvastatin 40 mg tablet mg PO 08/27/20 hydrochlorothiazide 12.5 mg tablet 12.5 mg PO DAILY 08/27/20 omeprazole 40 mg capsule,delayed 40 mg PO DAILY 08/27/20 release peg-electrolyte solution 420 gram ml PO 08/27/20 oral solution zolpidem 5 mg tablet 5 mg PO BEDTIME 08/27/20 bupropion HCl 100 mg tablet,12 hr 200 mg PO DAILY 04/22/21 sustained-release buspirone 5 mg tablet 5 mg PO BID 04/22/21 ergocalciferol (vitamin D2) 1,250 1,250 mcg PO QWEEK 04/22/21 mcg (50,000 unit) capsule escitalopram oxalate 5 mg tablet 5 mg PO DAILY 04/22/21 fluticasone propionate 100 1 inh PO BID 04/22/21 mcg/actuation blister powder for inhalation (Flovent Diskus) hydroxyzine HCl 25 mg tablet 25 mg PO DAILY PRN 04/22/21 simethicone 180 mg capsule 180 mg PO TID 04/22/21 ibuprofen 600 mg tablet 600 mg PO TID 07/16/21 Lactobacil rhamnosus GG 10 billion 1 cap PO TID 12/17/21 cell-inulin 200 mg sprinkle capsule ([facility]) buspirone 10 mg tablet 10 mg PO BID anxiety 12/17/21 escitalopram oxalate 10 mg tablet 10 mg PO DAILY 12/17/21 Previous Rx's Medication Instructions Recorded simethicone 125 mg chewable tablet 125 mg PO QID PRN abdominal 07/18/20 (Gas Relief (simethicone)) distention 30 days #120 tabs ciprofloxacin HCl 500 mg tablet 500 mg PO BID #14 tabs 08/17/20 (Cipro) ondansetron 4 mg disintegrating 4 mg PO ONCE PRN nausea and 06/18/21 tablet vomiting #10 tabs cephalexin 500 mg capsule 500 mg PO Q6H 7 days #28 caps 11/21/21 cephalexin 500 mg capsule 500 mg PO Q6H uti 7 days #28 caps 02/03/22 tranexamic acid 650 mg tablet 1,300 mg PO TID irregular prostate 02/03/22 bleeding 3 days #18 tabs terazosin 10 mg capsule 10 mg PO BEDTIME 90 days #90 caps 03/17/22 Allergies Allergy/AdvReac Type Severity Reaction Status Date / Time oxycodone [From PERCOCET] Allergy Unknown HIVES Verified 03/17/22 09:37 PMFSH Past Medical History Medical History Asthma BPH loc w urin obs/LUTS Esophageal dysphagia Hematuria HTN (hypertension) PVD (peripheral vascular disease) Vitamin D deficiency Surgical History History of surgery Hx of prostatectomy Social History Social History Alcohol intake: never Patient Tobacco Use Status: Former Tobacco user Smoked in Last 30 Days: No Use of substances other than those prescribed or required for medical reasons: No Advance Directives: No Advance Directives Information Provided: No Physical Exam Vital Signs: Vital Signs: Last Vital Signs Temp 98.6 F 05/21/22 20:58 Pulse 74 05/21/22 20:58 Resp 18 05/21/22 20:58 BP 130/93 H 05/21/22 20:58 Pulse Ox 95 05/21/22 20:58 O2 Del Method 05/21/22 20:58 BMI result Body Mass Index 24.2 Course Course Course Narrative: RME--72-year-old male with a medical history asthma, hematuria, HTN, PVD presenting to ED c/o CP, SOB, increased anxiety and chills since 08:00AM s/p taking a dose of Levaquin. Was seen at [facility] diagnosed with UTI started on Levaquin, took 1st dose today. Reports mild symptomatic improvement at present. Talking in complete sentences, in no respiratory distress EKG, labs, CXR, UA ordered in triage Medications Administered Discontinued Medications Generic Name Dose Route Start Last Admin Trade Name Freq PRN Reason Stop Dose Admin Iohexol 100 ml 05/21/22 20:27 05/21/22 20:28 Iohexol 350 Mg/Ml 100 Ml Infus..Btl IV 05/21/22 20:28 75 ml ONCE ONE Administration Sodium Zirconium Cyclosilicate 10 gm 05/21/22 17:02 05/21/22 18:39 Sodium Zirconium Cyclosilicate 10 Gm Powd.Pack PO 05/21/22 17:03 10 gm ONCE ONE Administration MDM - Chest Pain Lab Data Result diagrams: 05/21/22 19:19 05/21/22 19:19 Labs: Lab Results 05/21/22 05/21/22 05/21/22 Range/Units 13:33 13:33 13:34 WBC Cancelled RBC Cancelled Hgb Cancelled Hct Cancelled MCV Cancelled MCH Cancelled MCHC Cancelled RDW Cancelled Plt Count Cancelled MPV Cancelled Immature Gran % (Auto) Cancelled Neut % (Auto) Cancelled Lymph % (Auto) Cancelled [place] % (Auto) Cancelled Eos % (Auto) Cancelled Baso % (Auto) Cancelled Lymph # (Auto) Cancelled [place] # (Auto) Cancelled Eos # (Auto) Cancelled Baso # (Auto) Cancelled Abs Immat Gran (auto) Cancelled Absolute Neuts (auto) Cancelled Absolute Nucleated RBC Cancelled Nucleated RBC % (auto) Cancelled D-Dimer High Sensitivty NG/ML Sodium 140 (135-145) mmol/L Potassium 5.3 H D (3.3-5.1) mmol/L Chloride 104 (96-108) mmol/L Carbon Dioxide 26 (22-29) mmol/L Anion Gap 15 (12-20) BUN 15 (9-16) mg/dL Creatinine 0.84 (0.5-1.4) mg/dL Estim Creat Clear Calc 71.7 Estimated GFR > 60 Random Glucose 100 (60-115) mg/dL Calcium 9.7 (8.4-10.2) mg/dL Total Bilirubin (0.0-1.0) mg/dL AST (5-37) U/L ALT (0-40) U/L Alkaline Phosphatase (39-117) U/L Troponin I High Sens < 3.5 (<3.5-35.0) ng/L B-Natriuretic Peptide (<100) pg/mL Total Protein (6.5-8.0) g/dL Albumin (3.5-5.0) g/dL Urine Color Urine Appearance Urine pH Ur Specific [place] Urine Protein Urine Glucose (UA) Urine Ketones Urine Blood Urine Nitrite Ur Leukocyte Esterase Urine RBC (0-2) /HPF Urine WBC (0-5) /HPF Ur Squamous Epith Cells (0-2) /HPF Urine Bacteria (None Seen) Hyaline Casts (0-2) /LPF COVID-19 ([facility]) (Negative) COVID-19 Clin Com Influenza Type A (PCR) (Negative) Influenza Type B (PCR) (Negative) RSV RNA Qual (PCR) (Negative) SARS-CoV-2 RNA (RT-PCR) (Negative) 05/21/22 05/21/22 05/21/22 Range/Units 13:34 13:34 13:36 WBC RBC Hgb Hct MCV MCH MCHC RDW Plt Count MPV Immature Gran % (Auto) Neut % (Auto) Lymph % (Auto) [place] % (Auto) Eos % (Auto) Baso % (Auto) Lymph # (Auto) [place] # (Auto) Eos # (Auto) Baso # (Auto) Abs Immat Gran (auto) Absolute Neuts (auto) Absolute Nucleated RBC Nucleated RBC % (auto) D-Dimer High Sensitivty NG/ML Sodium (135-145) mmol/L Potassium (3.3-5.1) mmol/L Chloride (96-108) mmol/L Carbon Dioxide (22-29) mmol/L Anion Gap (12-20) BUN (9-16) mg/dL Creatinine (0.5-1.4) mg/dL Estim Creat Clear Calc Estimated GFR Random Glucose (60-115) mg/dL Calcium (8.4-10.2) mg/dL Total Bilirubin (0.0-1.0) mg/dL AST (5-37) U/L ALT (0-40) U/L Alkaline Phosphatase (39-117) U/L Troponin I High Sens (<3.5-35.0) ng/L B-Natriuretic Peptide < 10 (<100) pg/mL Total Protein (6.5-8.0) g/dL Albumin (3.5-5.0) g/dL Urine Color Cancelled Urine Appearance Cancelled Urine pH Cancelled Ur Specific [place] Cancelled Urine Protein Cancelled Urine Glucose (UA) Cancelled Urine Ketones Cancelled Urine Blood Cancelled Urine Nitrite Cancelled Ur Leukocyte Esterase Cancelled Urine RBC (0-2) /HPF Urine WBC (0-5) /HPF Ur Squamous Epith Cells (0-2) /HPF Urine Bacteria (None Seen) Hyaline Casts (0-2) /LPF COVID-19 ([facility]) Negative (Negative) COVID-19 Clin Com See Note Influenza Type A (PCR) (Negative) Influenza Type B (PCR) (Negative) RSV RNA Qual (PCR) (Negative) SARS-CoV-2 RNA (RT-PCR) (Negative) 05/21/22 05/21/22 05/21/22 Range/Units 13:36 13:58 19:19 WBC 4.9 RBC 4.99 Hgb 13.8 L Hct 42.6 MCV 85.4 MCH 27.7 MCHC 32.4 RDW 12.0 Plt Count 205 MPV 9.9 Immature Gran % (Auto) 0.2 Neut % (Auto) 66.5 Lymph % (Auto) 23.3 [place] % (Auto) 7.4 Eos % (Auto) 1.8 Baso % (Auto) 0.8 Lymph # (Auto) 1.1 L [place] # (Auto) 0.4 Eos # (Auto) 0.1 Baso # (Auto) 0.0 Abs Immat Gran (auto) 0.01 Absolute Neuts (auto) 3.3 Absolute Nucleated RBC 0.000 Nucleated RBC % (auto) 0.0 D-Dimer High Sensitivty NG/ML Sodium (135-145) mmol/L Potassium (3.3-5.1) mmol/L Chloride (96-108) mmol/L Carbon Dioxide (22-29) mmol/L Anion Gap (12-20) BUN (9-16) mg/dL Creatinine (0.5-1.4) mg/dL Estim Creat Clear Calc Estimated GFR Random Glucose (60-115) mg/dL Calcium (8.4-10.2) mg/dL Total Bilirubin (0.0-1.0) mg/dL AST (5-37) U/L ALT (0-40) U/L Alkaline Phosphatase (39-117) U/L Troponin I High Sens (<3.5-35.0) ng/L B-Natriuretic Peptide (<100) pg/mL Total Protein (6.5-8.0) g/dL Albumin (3.5-5.0) g/dL Urine Color Yellow Urine Appearance Clear Urine pH 6.5 Ur Specific [place] <= 1.005 Urine Protein Negative Urine Glucose (UA) Negative Urine Ketones Negative Urine Blood Negative Urine Nitrite Negative Ur Leukocyte Esterase Trace H Urine RBC 0-2 (0-2) /HPF Urine WBC 0-5 (0-5) /HPF Ur Squamous Epith Cells 0-2 (0-2) /HPF Urine Bacteria None Seen (None Seen) Hyaline Casts 0-2 (0-2) /LPF COVID-19 ([facility]) (Negative) COVID-19 Clin Com Influenza Type A (PCR) NEGATIVE (Negative) Influenza Type B (PCR) NEGATIVE (Negative) RSV RNA Qual (PCR) NEGATIVE (Negative) SARS-CoV-2 RNA (RT-PCR) POSITIVE A (Negative) 05/21/22 05/21/22 05/21/22 Range/Units 19:19 19:19 19:19 WBC RBC Hgb Hct MCV MCH MCHC RDW Plt Count MPV Immature Gran % (Auto) Neut % (Auto) Lymph % (Auto) [place] % (Auto) Eos % (Auto) Baso % (Auto) Lymph # (Auto) [place] # (Auto) Eos # (Auto) Baso # (Auto) Abs Immat Gran (auto) Absolute Neuts (auto) Absolute Nucleated RBC Nucleated RBC % (auto) D-Dimer High Sensitivty 281 NG/ML Sodium 141 (135-145) mmol/L Potassium 4.6 (3.3-5.1) mmol/L Chloride 104 (96-108) mmol/L Carbon Dioxide 29 (22-29) mmol/L Anion Gap 13 (12-20) BUN 15 (9-16) mg/dL Creatinine 0.85 (0.5-1.4) mg/dL Estim Creat Clear Calc 70.8 Estimated GFR > 60 Random Glucose 92 (60-115) mg/dL Calcium 9.6 (8.4-10.2) mg/dL Total Bilirubin 0.5 (0.0-1.0) mg/dL AST 20 (5-37) U/L ALT 21 (0-40) U/L Alkaline Phosphatase 47 (39-117) U/L Troponin I High Sens (<3.5-35.0) ng/L B-Natriuretic Peptide (<100) pg/mL Total Protein 6.9 (6.5-8.0) g/dL Albumin 4.4 (3.5-5.0) g/dL Urine Color Yellow Urine Appearance Clear Urine pH 6.5 Ur Specific [place] 1.015 Urine Protein Trace Urine Glucose (UA) Negative Urine Ketones Negative Urine Blood Negative Urine Nitrite Negative Ur Leukocyte Esterase Trace H Urine RBC 0-2 (0-2) /HPF Urine WBC 0-5 (0-5) /HPF Ur Squamous Epith Cells 0-2 (0-2) /HPF Urine Bacteria None Seen (None Seen) Hyaline Casts 0-2 (0-2) /LPF COVID-19 ([facility]) (Negative) COVID-19 Clin Com Influenza Type A (PCR) (Negative) Influenza Type B (PCR) (Negative) RSV RNA Qual (PCR) (Negative) SARS-CoV-2 RNA (RT-PCR) (Negative) Discharge Plan Discharge Clinical Impression: Shortness of breath, COVID-19, Acute hyperkalemia Patient Disposition: Home, Self-Care Instructions: Shortness of Breath (ED) Additional Instructions: Take your medications as prescribed. If you were prescribed antibiotics today, it is important that you take your medication to their entirety, do not skip any doses, do not finish them early. Today you tested positive for COVID-19. Take Ibuprofen or Tylenol as needed for fevers or body aches. Quarantine for 5 days and ensure you wear a mask. After 5 days you should wear a mask for 5 days after that. Practice social distancing and good hand hygiene. Drink plenty of fluids. Follow-up with your primary care provider this week. Return to the emergency department with new or worsening symptoms. In case of emergency call 911 Please discuss Paxlovid initiation with your primary care provider. You can purchase a pulse oximeter from your local pharmacy or grocery store, and monitor your oxygen saturation if it goes below 94% you should return to the emergency department for further evaluation. Your potassium was noted to be elevated here in the department, we gave you a medication to help bring down, improvement was noted, it went down nicely, please follow-up with your PCP for routine labs to see if your potassium has normalized. [place] shahbaz medicamentos seg?n lo prescrito. Si le recetaron antibi?ticos hoy, es i mportante que tome adam medicamento en adam totalidad, no se salte ninguna dosis, no los termine antes de tiempo. Hoy diste positivo por COVID-19. [place] ibuprofeno o Tylenol seg?n sea necesario para la fiebre o los danielito corporales. Cuarentena alise 5 d?as y aseg?rese de usar devin m?scara. Despu?s de 5 d?as, debe usar devin m?scara alise 5 d?as despu?s de eso. Practique el distanciamiento social y devin buena higiene de li. Beber mucho l?quido. Seguimiento con adam proveedor de atenci?n primaria esta semana. Regrese al departamento de emergencias con s?ntomas nuevos o que empeoran. En santino de emergencia llama al 911 Hable sobre el inicio de Paxlovid con adam proveedor de atenci?n primaria. Puede comprar un ox?metro de pulso en adam farmacia o marvel de comestibles local, y controlar adam saturaci?n de ox?david si desciende por debajo del 94%, debe regresar al departamento de emergencias para devin evaluaci?n adicional. Se not? que adam potasio estaba elevado aqu? en el departamento, le dimos un m edicamento para ayudar a bajarlo, se not? devin mejor?a, baj? muy manolo, chad un seguimiento con adam PCP para los an?lisis de laboratorio de rutina para radha si adam potasio se felton normalizado. CT/CT angio chest PE protocol IMPRESSION: No pulmonary embolism. Exam limited by motion artifact. Strong clinical concern for pulmonary thromboembolic disease should prompt further investigation such as bilateral lower extremity Doppler ultrasound or short-term follow-up pulmonary CT angiography. Focal lung opacity in the medial left lower lobe. Follow with low-dose noncontrast chest CT in 3-6 months time. Emphysema. ? VTE: negative ? Fleischner criteria utilized. Prescriptions: No Action simethicone [Gas Relief (simethicone)] 125 mg tablet,chewable 125 mg PO QID PRN (Reason: abdominal distention) 30 Days Qty: 120 6RF ciprofloxacin HCl [Cipro] 500 mg tablet 500 mg PO BID Qty: 14 0RF cephalexin 500 mg capsule 500 mg PO Q6H 7 Days Qty: 28 0RF cephalexin 500 mg capsule 500 mg PO Q6H 7 Days Qty: 28 0RF tranexamic acid 650 mg tablet 1,300 mg PO TID 3 Days Qty: 18 0RF ondansetron 4 mg tablet,disintegrating 4 mg PO ONCE PRN (Reason: nausea and vomiting) Qty: 10 0RF zolpidem 5 mg tablet 5 mg PO BEDTIME albuterol sulfate 90 mcg/actuation HFA aerosol inhaler 2 puff PO Q4-6H PRN hydrochlorothiazide 12.5 mg tablet 12.5 mg PO DAILY peg-electrolyte soln 420 gram recon soln PO atorvastatin 40 mg tablet PO omeprazole 40 mg capsule,delayed release(DR/EC) 40 mg PO DAILY ergocalciferol (vitamin D2) 1,250 mcg (50,000 unit) capsule 1,250 mcg PO QWEEK hydroxyzine HCl 25 mg tablet 25 mg PO DAILY PRN Flovent Diskus 100 mcg/actuation blister with device 1 inh PO BID bupropion HCl 100 mg tablet sustained-release 12 hr 200 mg PO DAILY simethicone 180 mg capsule 180 mg PO TID escitalopram oxalate 5 mg tablet 5 mg PO DAILY buspirone 5 mg tablet 5 mg PO BID ibuprofen 600 mg tablet 600 mg PO TID escitalopram oxalate 10 mg tablet 10 mg PO DAILY buspirone 10 mg tablet 10 mg PO BID [facility] 10 billion cell -200 mg capsule, sprinkle 1 cap PO TID terazosin 10 mg capsule 10 mg PO BEDTIME 90 Days Qty: 90 3RF Referrals: Niki Ramos MD [Primary Care Provider] - 2 days Stand Alone Forms: Work/School Release Interventions: ED Discharge Assessment Last Done: 05/21/22 23:20 Discharge Date/Time: 05/21/22 23:20
--- NOTE | 2022-05-21 13:21 | ECG_ITS ---
Test Reason : chest pain Blood Pressure : / mmHG Vent. Rate : 079 BPM Atrial Rate : 079 BPM P-R Int : 134 ms QRS Dur : 090 ms QT Int : 370 ms P-R-T Axes : 063 067 074 degrees QTc Int : 424 ms Normal sinus rhythm Intra-ventricular conduction delay RSR' or QR pattern in V1 suggests right ventricular conduction delay Abnormal ECG When compared with ECG of 11-FEB-2018 14:50, No significant change was found Referred By: Glo Muñoz Electronically Signed By:JULIETTE MILES MD
[2022-05-21 13:56] LABS: COVID-19 Test Negative (Negative); IDNOW Serial# 55D5AD1C
[2022-05-21 13:58] LABS: Anion Gap 15 (12-20); Blood Urea Nitrogen 15 mg/dL (9-16); Calcium 9.7 mg/dL (8.4-10.2); Carbon Dioxide 26 mmol/L (22-29); Chloride 104 mmol/L (96-108); Creatinine Clr Calc Pharmacy 71.7; Estimated Glomerular Filt Rate > 60; Glucose Random 100 mg/dL (60-115); Potassium 5.3 mmol/L (3.3-5.1); Sodium 140 mmol/L (135-145)
[2022-05-21 14:06] LABS: Troponin-I High Sensitivity < 3.5 ng/L (<3.5-35.0)
[2022-05-21 14:07] LABS: B Type Natriuretic Peptide < 10 pg/mL (<100)
[2022-05-21 14:18] LABS: Appearance Urine Clear; Color Urine Yellow; Glucose Urine UA Negative (Negative); Leukocyte Esterase Urine Trace (Negative); Nitrite Urine Negative (Negative); PH 6.5 (5.0-9.0); Specific Gravity - Urine <= 1.005 (1.005-1.025); UMIC TRIGGER UACC YES; Urine Blood Negative (Negative); Urine Ketones Negative (Negative); Urine Protein Negative (Neg-Trace)
[2022-05-21 14:23] LABS: Bacteria Urine None Seen (None Seen); Hyaline Casts Urine 0-2 /LPF (0-2); RBC Urine 0-2 /HPF (0-2); Squamous Epithelial Cell Urine 0-2 /HPF (0-2); WBC Urine 0-5 /HPF (0-5)
[2022-05-21 14:36] LABS: Influenza A PCR NEGATIVE (Negative); Influenza B PCR NEGATIVE (Negative); Resp Syncy Virus RNA Qual PCR NEGATIVE (Negative); SARS COV2 PCR INHOUSE POSITIVE (Negative)
[2022-05-21 17:45] VITALS: BP 161/86; PULSE 73; RESP 18; O2SAT 96
--- OUTSIDE RECORDS SUMMARY | 2022-05-21 18:25 | XMS_ITS ---
:1950 Author Care Team Providers Name Role Phone [facility] Referring Provider [phone] Allergies Code Code System Name Reaction Severity Status Onset 91583 RxNorm Percocet ? ? Active ? Notes: he is not allergic to Tylenol - he can take APAP- also states allergic to another pain pill unsureof name Medications Name Status Start Date Stop Date ? ? buspirone 10 mg tablet Active ? Not avail able TAKE 1 TABLET BY MOUTH TWICE DAILY FOR SYMPTOMS OF ANXIETY buspirone 5 mg tablet Active ? Not availa ble TAKE 1 TABLET BY MOUTH TWICE DAILY DIRECTED FOR ANXIETY cefuroxime axetil 250 mg tablet Active ? Not available TAKE 1 TABLET BY MOUTH TWICE DAILY FOR 7 DAYS cephalexin 500 mg capsule Active ? Not av ailable TAKE 1 CAPSULE BY MOUTH EVERY 6 HOURS FOR 7 DAYS FOR UTI ciprofloxacin 250 mg tablet Active ? Not available TAKE 1 TABLET BY MOUTH EVERY TWELVE HOURS UNTIL FINISHED [facility] 10 billion cell-200 mg sprinkle caps ule Active ? Not available TAKE 1 CAPSULE BY MOUTH THREE TIMES DAILY Deep [place] Nasal 0.65 % spray aerosol Active ? Not available USE 1-2 SPRAYS IN EACH NOSTRIL EVERY 2 TO 3 HOURS NEEDED FOR NASAL CONGESTION ergocalciferol (vitamin D2) 1,250 mcg (50,000 unit) capsule Acti ve ? Not available TAKE 1 CAPSULE BY MOUTH ONCE A WEEK escitalopram 10 mg tablet Active ? Not av ailable TAKE 1 TABLET BY MOUTH EVERY DAY DIRECTED escitalopram 5 mg tablet Active ? Not chuy ilable TAKE 1 TABLET BY MOUTH ONCE DAILY DIRECTED Flovent Diskus 100 mcg/actuation powder for inhalation Active ? Not available INHALE 1 PUFF BY MOUTH TWICE DAILY ibuprofen 600 mg tablet Active ? Not avai lable TAKE 1 TABLET BY MOUTH THREE TIMES DAILY WITH FOOD Levaquin 500 mg tablet Active ? Not avail able 500 mg now mirtazapine 15 mg tablet Active ? Not chuy ilable TAKE 1 TABLET BY MOUTH EVERY DAY BEFORE BEDTIME omeprazole 40 mg capsule,delayed release Active ? Not available TAKE 1 CAPSULE BY MOUTH EVERY DAY BEFORE A MEAL ondansetron 4 mg disintegrating tablet Active ? Not available DISSOLVE 1 TABLET ENCIMA DE LENGUA ONCE DAILY NEEDED FOR NAUSEA AND VOMITING Paxlovid 300 mg (150 mg x 2)-100 mg tablets in a dose pack (EUA) Active ? Not available TAKE 2 TABLETS (300 MG) OF NIRMATRELVIR & 1 TABLET (100 MG) OF RITONAVIR BY MOUTH TWICE DAILY FOR 5 DAYS Pyridium 100 mg tablet Active ? Not avail able Take 1 tablet 3 times a day by oral route as needed. simethicone 180 mg capsule Active ? Not a vailable TAKE 1 CAPSULE BY MOUTH THREE TIMES DAILY WITH MEALS terazosin 10 mg capsule Active ? Not avai lable TAKE 1 CAPSULE BY MOUTH AT BEDTIME tranexamic acid 650 mg tablet Active ? No t available TAKE 2 TABLETS BY MOUTH THREE TIMES DAILY FOR 3 DAYS Ventolin HFA 90 mcg/actuation aerosol inhaler Active ? Not available INHALE 2 PUFFS BY MOUTH EVERY 4 TO 6 HOURS NEEDED zolpidem 5 mg tablet Active ? Not availab le TAKE 1 TABLET BY MOUTH AT BEDTIME Problems None recorded. Procedures None recorded. Results Lab Results Date Name Specimen Result Interpretation Description Value Range Status Address ? 05/20/2022 Urinalysis, ? Leukocytes trace ? ? [facility] - [facility] ? ? ? Nitrite negative ? ? [facility] - [facility] ? ? ? Urobilinogen neg ? ? Tiana n - Insted: [facility] ? ? ? Protein trace ? ? Main - Inst[facility]: [facility] ? ? ? Ph 6 ? ? Main - Inst[facility]: [facility] ? ? ? Blood 50 rbc ? ? Main - Inst[facility]: [facility] ? ? ? Specific [place] 1.010 ? ? Main - Insted: [facility] ? ? ? Ketone neg ? ? Main - Insted: [facility] ? ? ? Bilirubin neg ? ? Main - Insted: [facility] ? ? ? Glucose neg ? ? Main - Insted: [facility] ? ? ? Appearance sl cloudy ? ? Ma in - Insted: [facility] ? ? ? Color pink ? ? Main - Insted: [facility] Past Encounters 05/20/2022 Acute Urinary Tract Infection Michelle Sharif MD: [address] [place] [address], Ph. Social History None recorded. Vaccine List None recorded. Plan of Care Reminders Provider Appointments None recorded. ? ? Lab None recorded. ? ? Referral None recorded. ? ? Procedures None recorded. ? ? Surgeries None recorded. ? ? Imaging None recorded. ? ? Vitals Height Weight Blood Pressure (1) 5 ft 6 in (1) 158 lbs (1) 123/85 mm[Hg] (2) 5 ft 6 in (2) 158 lbs (2) 123/85 mm[Hg]
--- OUTSIDE RECORDS SUMMARY | 2022-05-21 18:26 | XMS_ITS | Encounter Summary ---
:1950 Author Care Team Providers Name Role Phone [facility] Referring Provider [phone] Reason for Visit UTI/Pyelonephritis Assessment and Plan Assessment Note I have reviewed and agree with the Asse ssment and Plan as documented by the Ore Bridge Operator. I provided real -time medical direction via phone for this encounter, and was available for additional phone based assistance as needed. Patient given the opportunity to ask questions. 1. Acute urinary tract infection advised to push fluids- f/u with his ur ologist- concern for hematuria ? infection vs stone - vs bladder mass- may need cysto. Advised may have APAP( has at home has t aken before without problems) 500 mg q 6 hr prn. Informed pyridium would change color of urine but should help w/ dysuria until antibiotics kick in. Advised he wi ll be called in culture reveals need to change atb. Also advised if develops hi fever/ sever e abd or back pain/ Unable to void > 6 hrs to go to the Er. ? urinalysis, dipstick ? culture, urine ? Levaquin 500 mg tablet ? Levaquin 500 mg tablet ? Pyridium 100 mg tablet Discussion Note: None recorded.Patient educational handouts: No information available. Plan of Care Reminders Provider Appointments None recorded. ? ? Lab Urinalysis, Dipstick 05/20/2022 [facility] - In [facility]ed ? Culture, Urine 05/20/2022 [facility] Referral None recorded. ? ? Procedures None recorded. ? ? Surgeries None recorded. ? ? Imaging None recorded. ? ? Medications Name Start Date ? ? buspirone 10 mg tablet ? TAKE 1 TABLET BY MOUTH TWICE DAILY FOR SYMPTOMS OF AN XIETY buspirone 5 mg tablet ? TAKE 1 TABLET BY MOUTH TWICE DAILY DIRECTED FOR AN XIETY cefuroxime axetil 250 mg tablet ? TAKE 1 TABLET BY MOUTH TWICE DAILY FOR 7 DAYS cephalexin 500 mg capsule ? TAKE 1 CAPSULE BY MOUTH EVERY 6 HOURS FOR 7 DAYS FOR UTI ciprofloxacin 250 mg tablet ? TAKE 1 TABLET BY MOUTH EVERY TWELVE HOURS UNTIL FINIS [facility] 10 billion cell-200 mg spr inkle capsule ? TAKE 1 CAPSULE BY MOUTH THREE TIMES DAILY Deep Sea Nasal 0.65 % spray aerosol ? USE 1-2 SPRAYS IN EACH NOSTRIL EVERY 2 TO 3 HOURS NEEDED FOR NASAL CONGESTION ergocalciferol (vitamin D2) 1,250 mcg (50,000 unit) ca psule ? TAKE 1 CAPSULE BY MOUTH ONCE A WEEK escitalopram 10 mg tablet ? TAKE 1 TABLET BY MOUTH EVERY DAY DIRECTED escitalopram 5 mg tablet ? TAKE 1 TABLET BY MOUTH ONCE DAILY DIRECTED Flovent Diskus 100 mcg/actuation powder for inhalation ? INHALE 1 PUFF BY MOUTH TWICE DAILY ibuprofen 600 mg tablet ? TAKE 1 TABLET BY MOUTH THREE TIMES DAILY WITH FOOD Levaquin 500 mg tablet ? 500 mg now mirtazapine 15 mg tablet ? TAKE 1 TABLET BY MOUTH EVERY DAY BEFORE BEDTIME omeprazole 40 mg capsule,delayed release ? TAKE 1 CAPSULE BY MOUTH EVERY DAY BEFORE A MEAL ondansetron 4 mg disintegrating tablet ? DISSOLVE 1 TABLET ENCIMA DE LENGUA ONCE DAILY NEEDED FOR NAUSEA AND VOMITING Paxlovid 300 mg (150 mg x 2)-100 mg tablets in a dose pack (EUA) ? TAKE 2 TABLETS (300 MG) OF NIRMATRELVIR & 1 TABLET (100 MG) OF RITONAVIR BY MOUTH TWICE DAILY FOR 5 DAYS Pyridium 100 mg tablet ? Take 1 tablet 3 times a day by oral route as needed. simethicone 180 mg capsule ? TAKE 1 CAPSULE BY MOUTH THREE TIMES DAILY WITH MEALS terazosin 10 mg capsule ? TAKE 1 CAPSULE BY MOUTH AT BEDTIME tranexamic acid 650 mg tablet ? TAKE 2 TABLETS BY MOUTH THREE TIMES DAILY FOR 3 DAYS Ventolin HFA 90 mcg/actuation aerosol inhaler ? INHALE 2 PUFFS BY MOUTH EVERY 4 TO 6 HOURS NEEDED zolpidem 5 mg tablet ? TAKE 1 TABLET BY MOUTH AT BEDTIME Medications Administered Name Date ? ? Levaquin 500 mg tablet [id number]:[id number]:34 500 mg now Vitals Height Weight Blood Pressure (1) 5 ft 6 in (1) 158 lbs (1) 123/85 mm[Hg] (2) 5 ft 6 in (2) 158 lbs (2) 123/85 mm[Hg] Results Lab Results Date Name Specimen Result Interpretation Description Value Range Status Address ? 05/20/2022 Urinalysis, ? Leukocytes trace ? ? Main - Dipstick Insted: [facility] ? ? ? Nitrite negative ? ? Main - Insted: [facility] ? ? ? Urobilinogen neg ? ? Tiana n - Insted: [facility] ? ? ? Protein trace ? ? Main - Insted: [facility] ? ? ? Ph 6 ? ? Main - [facility]: [facility] ? ? ? Blood 50 rbc ? ? Main - Insted: [facility] ? ? ? Specific [place] 1.010 ? ? Main - Insted: [facility] ? ? ? Ketone neg ? ? Main - Insted: [facility] ? ? ? Bilirubin neg ? ? Main - Insted: [facility] ? ? ? Glucose neg ? ? Main - Insted: [facility] ? ? ? Appearance sl cloudy ? ? Ma in - Insted: [facility] ? ? ? Color pink ? ? Main - Insted: [facility] Allergies Code Code System Name Reaction Severity Onset 63075 RxNorm Percocet ? ? ? Notes: he is not allergic to Tylenol - he can take APAP- also states allergic to another pain pill unsureof name Problems None recorded. Procedures None recorded. Vaccine List None recorded. Social History None recorded. Functional Status Unknown. Past Encounters 05/20/2022 Acute Urinary Tract Infection Michelle Sharif MD: [address] [place] [phone], Ph. History of Present Illness Note: <p><strong>HPI: </strong></p><div>
</div><p>72 year old, [place] speaking male, reporting dysuria with penile pain x 2-3 days, stated foul odor in urine and would like U/A and culture done, stated unable to see his PCP due to provider leaving clinic,seen in the ER for UTI in 02/2022. Saw Uro for BPH. Denied fevers, chills, or cough. 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 .................. ...............................................</p><div>
</div><p>&l t;strong>[facility] Nursing Assessment: </strong></p><div>
</div><p>Comments: No further information needed to process visit </p><div>
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 bladder mucosa). He denies fevers/ chills/ dizziness/ CP/ SOB / abd pain/ n/v/d. He is not on anticoagulants and denies hx nephrolithiasis. When I inquired what antibiotic he wqas given in Feb 2022 for his last UTI, he could not remember- stated was 1 white pill 500mg per day x 14 days.</div><p>........................................................... ................................................................................ ..

<strong>Ore Bridge Operator Note: </strong>

Sent to a call for a pt complaining of dysuria and penile pain x 2-3 days. SC8 arrives on scene, pt is alert and oriented. Airway is patent. Pt's primary language is [place]; business reporting developer line used during visit. Pt complains of dysuria, malodorous urine, hematuria, and increased frequency/urgency to urinate. Pt denies headache, d izziness, cp, sob, n/v/d, abd pain, back pain, fever, loc, or history of kidney problems/kidney stones. Pt has a history of UTIs and BPH. Pt's last Urologist visit was approx 2 months ago. BP:123/85, P:67, RR:18, SpO2:96% RA, T:98.3; Lung sounds: clear bilaterally; Abdomen: soft, non-tender, no distention; Back: no CVA tenderness; Skin: pink, warm, dry; Pt states he has been eating normally, a nd increased oral hydration. Urine sample obtained: pink tinged, clear, concentrated; Urine dip: results uploaded to [employer]. [facility] orders Levofloxacin 500mg PO and urine culture to be sent to [facility]. Pt advised to take Tylenol 500mg q 6hrs prn, increase oral hydration, and follow up with urologist. Lev ofloxacin administered without incident. [facility] sends script to pt's pharmacy for Levofloxacin and Pyridium. Red flags discussed. Pt has no further questions.
............................ ................................................................................ .................................

<strong>Disposition: </strong>

Fulfilled</p>Review of Systems: ROS as noted in the HPI Review of Systems None recorded. Physical Exam ? Notes: <div>as per medic : pat NAD- vss afebrile- abd not distended- soft not tender . NO CVAT</div>
[2022-05-21] MEDS: Sodium Zirconium Cyclosilicate 10 GM POWD.PACK PO (18:39)
--- NOTE | 2022-05-21 18:44 | PC.NURSE ---
jeffrey solano without issue, ambulated to bathroom w steady gait for ua spec.
--- NOTE | 2022-05-21 18:53 | ED_ITS ---
HPI - General Adult General Chief complaint: General Medical Stated complaint: diff breathing Time Seen by Provider: 05/21/22 18:29 Source: patient Mode of arrival: ambulatory Limitations: no limitations History of Present Illness HPI narrative: [age] medical history significant for urinary retention with incomplete bladder emptying, BPH, nephrolithiasis presenting to the emergency department with complaints of shortness of breath times a few days. Patient tells me shortness of breath is present both with ambulation at rest. He reports some subjective fevers and chills however has not taken his temperature at home. Also reports fatigue, malaise. He reports he is currently taking levofloxacin 500 mg for UTI he states that this medication is causing him slight GI upset and abdominal discomfort, he is not sure if this is contributing to his symptoms. He tells me he is also feeling anxious. Denies suicidal ideation, homicidal ideation. Denies chest pain, lower extremity swelling, nausea, vomiting, headache, vision changes, dizziness. Patient denies sick contacts. Patient appears comfortable on exam in no signs of acute distress. Related Data Home Medications Medication Instructions Recorded Confirmed albuterol sulfate 90 mcg/actuation 2 puff PO Q4-6H PRN 08/27/20 aerosol inhaler atorvastatin 40 mg tablet mg PO 08/27/20 hydrochlorothiazide 12.5 mg tablet 12.5 mg PO DAILY 08/27/20 omeprazole 40 mg capsule,delayed 40 mg PO DAILY 08/27/20 release peg-electrolyte solution 420 gram ml PO 08/27/20 oral solution zolpidem 5 mg tablet 5 mg PO BEDTIME 08/27/20 bupropion HCl 100 mg tablet,12 hr 200 mg PO DAILY 04/22/21 sustained-release buspirone 5 mg tablet 5 mg PO BID 04/22/21 ergocalciferol (vitamin D2) 1,250 1,250 mcg PO QWEEK 04/22/21 mcg (50,000 unit) capsule escitalopram oxalate 5 mg tablet 5 mg PO DAILY 04/22/21 fluticasone propionate 100 1 inh PO BID 04/22/21 mcg/actuation blister powder for inhalation (Flovent Diskus) hydroxyzine HCl 25 mg tablet 25 mg PO DAILY PRN 04/22/21 simethicone 180 mg capsule 180 mg PO TID 04/22/21 ibuprofen 600 mg tablet 600 mg PO TID 07/16/21 Lactobacil rhamnosus GG 10 billion 1 cap PO TID 12/17/21 cell-inulin 200 mg sprinkle capsule ([facility]) buspirone 10 mg tablet 10 mg PO BID anxiety 12/17/21 escitalopram oxalate 10 mg tablet 10 mg PO DAILY 12/17/21 Previous Rx's Medication Instructions Recorded simethicone 125 mg chewable tablet 125 mg PO QID PRN abdominal 07/18/20 (Gas Relief (simethicone)) distention 30 days #120 tabs ciprofloxacin HCl 500 mg tablet 500 mg PO BID #14 tabs 08/17/20 (Cipro) ondansetron 4 mg disintegrating 4 mg PO ONCE PRN nausea and 06/18/21 tablet vomiting #10 tabs cephalexin 500 mg capsule 500 mg PO Q6H 7 days #28 caps 11/21/21 cephalexin 500 mg capsule 500 mg PO Q6H uti 7 days #28 caps 02/03/22 tranexamic acid 650 mg tablet 1,300 mg PO TID irregular prostate 02/03/22 bleeding 3 days #18 tabs terazosin 10 mg capsule 10 mg PO BEDTIME 90 days #90 caps 03/17/22 Allergies Allergy/AdvReac Type Severity Reaction Status Date / Time oxycodone [From PERCOCET] Allergy Unknown HIVES Verified 03/17/22 09:37 Review of Systems Review of Systems: Constitutional : No Weight loss, No Fever, No Chills, No Fatigue, No Malaise ENT/Mouth : No sore throat, No Rhinorrhea Eyes: No Eye Pain, No Swelling, No Redness Cardiovascular : No Chest Pain, + SOB, No Dyspnea on Exertion, No Orthopnea, No Edema, No Palpitations Respiratory : No Cough, No Sputum, No Wheezing Gastrointestinal : No Nausea, No Vomiting, No Diarrhea, No Constipation, No abdominal Pain, No Hematochezia, No Melena Genitourinary : No Dysuria, No Urinary Frequency, No Hematuria, Musculoskeletal : No joint pain, No Myalgias, No Joint Swelling Skin : No Skin Lesions, No rash Neuro : No Weakness, No Numbness, No Dizziness, No Headache Psych : + Anxiety/Panic, No Depression All other systems reviewed and are negative Yes all other systems are reviewed and are negative PMFSH Past Medical History Attestation statement: The following information was validated with the patient. Source: old records reviewed and nursing notes reviewed Medical History Asthma BPH loc w urin obs/LUTS Esophageal dysphagia Hematuria HTN (hypertension) PVD (peripheral vascular disease) Vitamin D deficiency Surgical History History of surgery Hx of prostatectomy Social History Social History Alcohol intake: never Patient Tobacco Use Status: Former Tobacco user Smoked in Last 30 Days: No Use of substances other than those prescribed or required for medical reasons: No Advance Directives: No Advance Directives Information Provided: No Physical Exam ED Vital Signs: Vital Signs - 24 hr 05/21/22 13:20 05/21/22 17:45 05/21/22 20:58 Temperature 98.3 F 98.6 F Pulse Rate 95 73 74 Respiratory Rate 18 18 18 Blood Pressure 141/92 H 161/86 H 130/93 H Pulse Oximetry 97 96 95 Oxygen Delivery Method Room Air Room Air BMI result Body Mass Index 24.2 vss Appearance: Alert.? Oriented X3.? No acute distress.? Head: Normocephalic, atraumatic, no step-offs or deformities Eyes: Pupils equal, round and reactive to light.? ENT: Pharynx normal.? Neck: Normal inspection.? Neck supple.? CVS: Normal heart rate and rhythm.? Pulses normal.? Respiratory: No respiratory distress.? Breath sounds normal.? Abdomen: Soft and nontender.? Skin: Skin warm and dry.? Normal skin color.? Normal skin turgor.? Extremities: No lower extremity edema.? No calf ttp, negative avis b/l. 5/5 strength to bilateral upper and lower extremities Neuro: Oriented X 3.? No motor deficit.? No sensory deficit. CN 2-12 intact Course Reevaluation(s) Reevaluation #1: CBC appears to be around patient's baseline. Chemistry with elevated potassium 5.3 will give Lokelma. Troponin negative, EKG nonischemic unlikely ACS. BNP within normal limits. UA clean. Lungs clear. Patient noted to be COVID positive. D-dimer and repeat chemistry pending. Time: 19:00 Reevaluation #2: Repeat chemistry with improvement in it potassium. Patient's D-dimer was slightly positive CTA was ordered to rule out PE. CTA with no pulmonary emboli. Patient without lower extremity edema or swelling, negative Avis bilaterally, low suspicion for pulmonary thromboembolic disease therefore will not order a duplex of lower extremities. Focal lung opacities in the medial left lobe recommend low-dose non con CT in 3-6 months. Emphysema is noted. At this time patient's symptoms likely secondary to COVID-19. Patient will be discharged home advised him to speak to his PCP about initiation of Paxlovid. Educated on worrisome signs and symptoms and when to return. At this time I feel comfortable discharge. Time: 21:45 Reevaluation #3: Out to know at time of discharge patient tells me he is feeling much better, no chest pain, shortness of breath. Vital signs stable. Saturating 96% on room air. Time: 21:49 Medications Administered Discontinued Medications Generic Name Dose Route Start Last Admin Trade Name Freq PRN Reason Stop Dose Admin Iohexol 100 ml 05/21/22 20:27 05/21/22 20:28 Iohexol 350 Mg/Ml 100 Ml Infus..Btl IV 05/21/22 20:28 75 ml ONCE ONE Administration Sodium Zirconium Cyclosilicate 10 gm 05/21/22 17:02 05/21/22 18:39 Sodium Zirconium Cyclosilicate 10 Gm Powd.Pack PO 05/21/22 17:03 10 gm ONCE ONE Administration Medical Decision Making [facility] Narrative Medical decision making narrative: 2738 72-year-old male presents with shortness of breath for few days also reports anxiety. Physical exam benign. Negative Avis bilaterally. Lungs clear. Regular rate and rhythm. Abdomen soft nontender nondistended. Will rule out pneumonia, PE although unlikely. Likely viral syndrome. Will obtain COVID test at this time. Plan at this time labs, imaging, EKG, troponin. Medical Records Medical records reviewed: Yes I reviewed the patient's medical records. Lab Data Lab results reviewed: Yes I reviewed the patient's lab results. Result diagrams: 05/21/22 19:19 05/21/22 19:19 Labs: Lab Results 05/21/22 05/21/22 05/21/22 Range/Units 13:33 13:33 13:34 WBC Cancelled RBC Cancelled Hgb Cancelled Hct Cancelled MCV Cancelled MCH Cancelled MCHC Cancelled RDW Cancelled Plt Count Cancelled MPV Cancelled Immature Gran % (Auto) Cancelled Neut % (Auto) Cancelled Lymph % (Auto) Cancelled [place] % (Auto) Cancelled Eos % (Auto) Cancelled Baso % (Auto) Cancelled Lymph # (Auto) Cancelled [place] # (Auto) Cancelled Eos # (Auto) Cancelled Baso # (Auto) Cancelled Abs Immat Gran (auto) Cancelled Absolute Neuts (auto) Cancelled Absolute Nucleated RBC Cancelled Nucleated RBC % (auto) Cancelled D-Dimer High Sensitivty NG/ML Sodium 140 (135-145) mmol/L Potassium 5.3 H D (3.3-5.1) mmol/L Chloride 104 (96-108) mmol/L Carbon Dioxide 26 (22-29) mmol/L Anion Gap 15 (12-20) BUN 15 (9-16) mg/dL Creatinine 0.84 (0.5-1.4) mg/dL Estim Creat Clear Calc 71.7 Estimated GFR > 60 Random Glucose 100 (60-115) mg/dL Calcium 9.7 (8.4-10.2) mg/dL Total Bilirubin (0.0-1.0) mg/dL AST (5-37) U/L ALT (0-40) U/L Alkaline Phosphatase (39-117) U/L Troponin I High Sens < 3.5 (<3.5-35.0) ng/L B-Natriuretic Peptide (<100) pg/mL Total Protein (6.5-8.0) g/dL Albumin (3.5-5.0) g/dL Urine Color Urine Appearance Urine pH Ur Specific [place] Urine Protein Urine Glucose (UA) Urine Ketones Urine Blood Urine Nitrite Ur Leukocyte Esterase Urine RBC (0-2) /HPF Urine WBC (0-5) /HPF Ur Squamous Epith Cells (0-2) /HPF Urine Bacteria (None Seen) Hyaline Casts (0-2) /LPF COVID-19 ([facility]) (Negative) COVID-19 Clin Com Influenza Type A (PCR) (Negative) Influenza Type B (PCR) (Negative) RSV RNA Qual (PCR) (Negative) SARS-CoV-2 RNA (RT-PCR) (Negative) 05/21/22 05/21/22 05/21/22 Range/Units 13:34 13:34 13:36 WBC RBC Hgb Hct MCV MCH MCHC RDW Plt Count MPV Immature Gran % (Auto) Neut % (Auto) Lymph % (Auto) [place] % (Auto) Eos % (Auto) Baso % (Auto) Lymph # (Auto) [place] # (Auto) Eos # (Auto) Baso # (Auto) Abs Immat Gran (auto) Absolute Neuts (auto) Absolute Nucleated RBC Nucleated RBC % (auto) D-Dimer High Sensitivty NG/ML Sodium (135-145) mmol/L Potassium (3.3-5.1) mmol/L Chloride (96-108) mmol/L Carbon Dioxide (22-29) mmol/L Anion Gap (12-20) BUN (9-16) mg/dL Creatinine (0.5-1.4) mg/dL Estim Creat Clear Calc Estimated GFR Random Glucose (60-115) mg/dL Calcium (8.4-10.2) mg/dL Total Bilirubin (0.0-1.0) mg/dL AST (5-37) U/L ALT (0-40) U/L Alkaline Phosphatase (39-117) U/L Troponin I High Sens (<3.5-35.0) ng/L B-Natriuretic Peptide < 10 (<100) pg/mL Total Protein (6.5-8.0) g/dL Albumin (3.5-5.0) g/dL Urine Color Cancelled Urine Appearance Cancelled Urine pH Cancelled Ur Specific [place] Cancelled Urine Protein Cancelled Urine Glucose (UA) Cancelled Urine Ketones Cancelled Urine Blood Cancelled Urine Nitrite Cancelled Ur Leukocyte Esterase Cancelled Urine RBC (0-2) /HPF Urine WBC (0-5) /HPF Ur Squamous Epith Cells (0-2) /HPF Urine Bacteria (None Seen) Hyaline Casts (0-2) /LPF COVID-19 ([facility]) Negative (Negative) COVID-19 Clin Com See Note Influenza Type A (PCR) (Negative) Influenza Type B (PCR) (Negative) RSV RNA Qual (PCR) (Negative) SARS-CoV-2 RNA (RT-PCR) (Negative) 05/21/22 05/21/22 05/21/22 Range/Units 13:36 13:58 19:19 WBC 4.9 RBC 4.99 Hgb 13.8 L Hct 42.6 MCV 85.4 MCH 27.7 MCHC 32.4 RDW 12.0 Plt Count 205 MPV 9.9 Immature Gran % (Auto) 0.2 Neut % (Auto) 66.5 Lymph % (Auto) 23.3 [place] % (Auto) 7.4 Eos % (Auto) 1.8 Baso % (Auto) 0.8 Lymph # (Auto) 1.1 L [place] # (Auto) 0.4 Eos # (Auto) 0.1 Baso # (Auto) 0.0 Abs Immat Gran (auto) 0.01 Absolute Neuts (auto) 3.3 Absolute Nucleated RBC 0.000 Nucleated RBC % (auto) 0.0 D-Dimer High Sensitivty NG/ML Sodium (135-145) mmol/L Potassium (3.3-5.1) mmol/L Chloride (96-108) mmol/L Carbon Dioxide (22-29) mmol/L Anion Gap (12-20) BUN (9-16) mg/dL Creatinine (0.5-1.4) mg/dL Estim Creat Clear Calc Estimated GFR Random Glucose (60-115) mg/dL Calcium (8.4-10.2) mg/dL Total Bilirubin (0.0-1.0) mg/dL AST (5-37) U/L ALT (0-40) U/L Alkaline Phosphatase (39-117) U/L Troponin I High Sens (<3.5-35.0) ng/L B-Natriuretic Peptide (<100) pg/mL Total Protein (6.5-8.0) g/dL Albumin (3.5-5.0) g/dL Urine Color Yellow Urine Appearance Clear Urine pH 6.5 Ur Specific [place] <= 1.005 Urine Protein Negative Urine Glucose (UA) Negative Urine Ketones Negative Urine Blood Negative Urine Nitrite Negative Ur Leukocyte Esterase Trace H Urine RBC 0-2 (0-2) /HPF Urine WBC 0-5 (0-5) /HPF Ur Squamous Epith Cells 0-2 (0-2) /HPF Urine Bacteria None Seen (None Seen) Hyaline Casts 0-2 (0-2) /LPF COVID-19 ([facility]) (Negative) COVID-19 Clin Com Influenza Type A (PCR) NEGATIVE (Negative) Influenza Type B (PCR) NEGATIVE (Negative) RSV RNA Qual (PCR) NEGATIVE (Negative) SARS-CoV-2 RNA (RT-PCR) POSITIVE A (Negative) 05/21/22 05/21/22 05/21/22 Range/Units 19:19 19:19 19:19 WBC RBC Hgb Hct MCV MCH MCHC RDW Plt Count MPV Immature Gran % (Auto) Neut % (Auto) Lymph % (Auto) [place] % (Auto) Eos % (Auto) Baso % (Auto) Lymph # (Auto) [place] # (Auto) Eos # (Auto) Baso # (Auto) Abs Immat Gran (auto) Absolute Neuts (auto) Absolute Nucleated RBC Nucleated RBC % (auto) D-Dimer High Sensitivty 281 NG/ML Sodium 141 (135-145) mmol/L Potassium 4.6 (3.3-5.1) mmol/L Chloride 104 (96-108) mmol/L Carbon Dioxide 29 (22-29) mmol/L Anion Gap 13 (12-20) BUN 15 (9-16) mg/dL Creatinine 0.85 (0.5-1.4) mg/dL Estim Creat Clear Calc 70.8 Estimated GFR > 60 Random Glucose 92 (60-115) mg/dL Calcium 9.6 (8.4-10.2) mg/dL Total Bilirubin 0.5 (0.0-1.0) mg/dL AST 20 (5-37) U/L ALT 21 (0-40) U/L Alkaline Phosphatase 47 (39-117) U/L Troponin I High Sens (<3.5-35.0) ng/L B-Natriuretic Peptide (<100) pg/mL Total Protein 6.9 (6.5-8.0) g/dL Albumin 4.4 (3.5-5.0) g/dL Urine Color Yellow Urine Appearance Clear Urine pH 6.5 Ur Specific [place] 1.015 Urine Protein Trace Urine Glucose (UA) Negative Urine Ketones Negative Urine Blood Negative Urine Nitrite Negative Ur Leukocyte Esterase Trace H Urine RBC 0-2 (0-2) /HPF Urine WBC 0-5 (0-5) /HPF Ur Squamous Epith Cells 0-2 (0-2) /HPF Urine Bacteria None Seen (None Seen) Hyaline Casts 0-2 (0-2) /LPF COVID-19 ([facility]) (Negative) COVID-19 Clin Com Influenza Type A (PCR) (Negative) Influenza Type B (PCR) (Negative) RSV RNA Qual (PCR) (Negative) SARS-CoV-2 RNA (RT-PCR) (Negative) ECG Data Attestation: I personally reviewed and interpreted this ECG as follows: Prior ECG tracings: available for review Interpretation: Ventricular rate 79, MI normal, QRS normal, QT/QTC normal. EKG with normal sinus rhythm, interventricular conduction delay and RSR noted, no significant changes when compared to previous EKG. No signs of acute ischemia. Critical Care Time Critical Care Time Critical Care Time: No Discharge Plan Discharge Clinical Impression: Shortness of breath, COVID-19, Acute hyperkalemia Patient Disposition: Home, Self-Care Instructions: Shortness of Breath (ED) Additional Instructions: Take your medications as prescribed. If you were prescribed antibiotics today, it is important that you take your medication to their entirety, do not skip any doses, do not finish them early. Today you tested positive for COVID-19. Take Ibuprofen or Tylenol as needed for fevers or body aches. Quarantine for 5 days and ensure you wear a mask. After 5 days you should wear a mask for 5 days after that. Practice social distancing and good hand hygiene. Drink plenty of fluids. Follow-up with your primary care provider this week. Return to the emergency department with new or worsening symptoms. In case of emergency call 911 Please discuss Paxlovid initiation with your primary care provider. You can purchase a pulse oximeter from your local pharmacy or grocery store, and monitor your oxygen saturation if it goes below 94% you should return to the emergency department for further evaluation. Your potassium was noted to be elevated here in the department, we gave you a medication to help bring down, improvement was noted, it went down nicely, please follow-up with your PCP for routine labs to see if your potassium has normalized. [place] shahbaz medicamentos seg?n lo prescrito. Si le recetaron antibi?ticos hoy, es importante que tome adam medicamento en adam totalidad, no se salte ninguna dosis, no los termine antes de tiempo. Hoy diste positivo por COVID-19. [place] ibuprofeno o Tylenol seg?n sea necesario para la fiebre o los danielito corporales. [place] alise 5 d?as y aseg?rese de usar devin m?scara. Despu?s de 5 d?as, debe usar devin m?scara alise 5 d?as despu?s de eso. Practique el distanciamiento social y devin buena higiene de li. Beber mucho l?quido. Seguimiento con adam proveedor de atenci?n primaria esta semana. Regrese al departamento de emergencias con s?ntomas nuevos o que empeoran. En santino de emergencia llama al 911 Hable sobre el inicio de Paxlovid con adam proveedor de atenci?n primaria. Puede comprar un ox?metro de pulso en adam farmacia o marvel de comestibles local, y controlar adam saturaci?n de ox?david si desciende por debajo del 94%, debe regresar al departamento de emergencias para devin evaluaci?n adicional. Se not? que adam potasio estaba elevado aqu? en el departamento, le dimos un medicamento para ayudar a bajarlo, se not? devin mejor?a, baj? muy manolo, chad un seguimiento con adam PCP para los an?lisis de laboratorio de rutina para radha si adam potasio se felton normalizado. CT/CT angio chest PE protocol IMPRESSION: No pulmonary embolism. Exam limited by motion artifact. Strong clinical concern for pulmonary thromboembolic disease should prompt further investigation such as bilateral lower extremity Doppler ultrasound or short-term follow-up pulmonary CT angiography. Focal lung opacity in the medial left lower lobe. Follow with low-dose noncontrast chest CT in 3-6 months time. Emphysema. ? VTE: negative ? Fleischner criteria utilized. Prescriptions: No Action simethicone [Gas Relief (simethicone)] 125 mg tablet,chewable 125 mg PO QID PRN (Reason: abdominal distention) 30 Days Qty: 120 6RF ciprofloxacin HCl [Cipro] 500 mg tablet 500 mg PO BID Qty: 14 0RF cephalexin 500 mg capsule 500 mg PO Q6H 7 Days Qty: 28 0RF cephalexin 500 mg capsule 500 mg PO Q6H 7 Days Qty: 28 0RF tranexamic acid 650 mg tablet 1,300 mg PO TID 3 Days Qty: 18 0RF ondansetron 4 mg tablet,disintegrating 4 mg PO ONCE PRN (Reason: nausea and vomiting) Qty: 10 0RF zolpidem 5 mg tablet 5 mg PO BEDTIME albuterol sulfate 90 mcg/actuation HFA aerosol inhaler 2 puff PO Q4-6H PRN hydrochlorothiazide 12.5 mg tablet 12.5 mg PO DAILY peg-electrolyte soln 420 gram recon soln PO atorvastatin 40 mg tablet PO omeprazole 40 mg capsule,delayed release(DR/EC) 40 mg PO DAILY ergocalciferol (vitamin D2) 1,250 mcg (50,000 unit) capsule 1,250 mcg PO QWEEK hydroxyzine HCl 25 mg tablet 25 mg PO DAILY PRN Flovent Diskus 100 mcg/actuation blister with device 1 inh PO BID bupropion HCl 100 mg tablet sustained-release 12 hr 200 mg PO DAILY simethicone 180 mg capsule 180 mg PO TID escitalopram oxalate 5 mg tablet 5 mg PO DAILY buspirone 5 mg tablet 5 mg PO BID ibuprofen 600 mg tablet 600 mg PO TID escitalopram oxalate 10 mg tablet 10 mg PO DAILY buspirone 10 mg tablet 10 mg PO BID [facility] 10 billion cell -200 mg capsule, sprinkle 1 cap PO TID terazosin 10 mg capsule 10 mg PO BEDTIME 90 Days Qty: 90 3RF Referrals: Niki Ramos MD [Primary Care Provider] - 2 days Stand Alone Forms: Work/School Release
[2022-05-21 19:27] LABS: MANUAL DIFF FLAG NO
[2022-05-21 19:29] LABS: Basophils Percent Auto 0.8 % (0-2); Eosinophils Absolute Auto 0.1 X10*3/uL (0.0-0.4); Eosinophils Percent Auto 1.8 % (0-4); Hematocrit 42.6 % (42.0-52.0); Hemoglobin 13.8 g/dl (14.0-18.0); Imm Gran Abs Auto 0.01 X10*3/uL (0.00-0.03); Imm Gran Pct Auto 0.2 % (0.0-0.4); Lymphocytes Absolute Auto 1.1 X10*3/uL (1.2-4.9); Lymphocytes Percent Auto 23.3 % (20-40); Mean Corpuscular HGB Conc 32.4 g/dl (31.0-36.0); Mean Corpuscular Hemoglobin 27.7 pg (27.0-33.0); Mean Corpuscular Volume 85.4 fL (80.0-98.0); Mean Platelet Volume 9.9 fL (9.4-12.4); Monocytes Absolute Auto 0.4 X10*3/uL (0.1-1.2); Monocytes Percent Auto 7.4 % (2-11); Neutrophils Absolute Auto 3.3 x10*3/uL (2.0-8.3); Neutrophils Percent Auto 66.5 % (45-73); Platelet Count 205 X10*3/uL (160-400); Red Blood Count 4.99 X10*6/uL (4.60-5.80); White Blood Count 4.9 X10*3/uL (4.8-10.8)
[2022-05-21 19:30] LABS: Appearance Urine Clear; Color Urine Yellow; Glucose Urine UA Negative (Negative); Leukocyte Esterase Urine Trace (Negative); Nitrite Urine Negative (Negative); PH 6.5 (5.0-9.0); Specific Gravity - Urine 1.015 (1.005-1.025); UMIC TRIGGER UACC YES; Urine Blood Negative (Negative); Urine Ketones Negative (Negative); Urine Protein Trace mg/dL (Neg-Trace)
[2022-05-21 19:35] LABS: Bacteria Urine None Seen (None Seen); Hyaline Casts Urine 0-2 /LPF (0-2); RBC Urine 0-2 /HPF (0-2); Squamous Epithelial Cell Urine 0-2 /HPF (0-2); WBC Urine 0-5 /HPF (0-5)
[2022-05-21 19:38] LABS: D Dimer High Sensitivity 281 NG/ML
[2022-05-21 19:45] LABS: Alanine Aminotransferase 21 U/L (0-40); Albumin Level 4.4 g/dL (3.5-5.0); Alkaline Phosphatase 47 U/L (39-117); Anion Gap 13 (12-20); Aspartate Amino Transferase 20 U/L (5-37); Bilirubin Total 0.5 mg/dL (0.0-1.0); Blood Urea Nitrogen 15 mg/dL (9-16); Calcium 9.6 mg/dL (8.4-10.2); Carbon Dioxide 29 mmol/L (22-29); Chloride 104 mmol/L (96-108); Creatinine Clr Calc Pharmacy 70.8; Estimated Glomerular Filt Rate > 60; Glucose Random 92 mg/dL (60-115); Potassium 4.6 mmol/L (3.3-5.1); Sodium 141 mmol/L (135-145); Total Protein 6.9 g/dL (6.5-8.0)
[2022-05-21] MEDS: iohexoL 350 MG/ML 100 ML INFUS..BTL IV (20:28)
[2022-05-21 20:58] VITALS: BP 130/93; PULSE 74; RESP 18; TEMP 37; O2SAT 95
== END 2022-05-21 23:20 | disposition home or self-care (01) ==
PROVIDERS: Physician Assistant; Emergency Provider Emergency Medicine; PCP Internal Medicine
DX: U07.1 COVID-19 (principal); R06.02 Shortness of breath; E87.5 Hyperkalemia; Z87.891 Personal history of nicotine dependence; Z20.822 Contact with and (suspected) exposure to COVID-19; Z79.899 Other long term (current) drug therapy
CPT/HCPCS: 0241U; 36415; 71046; 71275; 80048; 80053; 81001; 81003; 83880; 84484; 85025; 85379; 87635; 93005; 99284; 99285; Q9967

== ENCOUNTER → 2022-11-25 10:41 | Outpatient (BNVA) | payer OTHER, SELFPAY | PROVIDERS: PCP Internal Medicine; Referring Provider Internal Medicine; Visit Provider Internal Medicine Cardiovascular Disease | DX: R07.2 Precordial pain (principal) | CPT/HCPCS: 93005; 99202 ==

== ENCOUNTER → 2022-12-07 07:43 | Outpatient (REF) | payer OTHER, SELFPAY ==
--- NOTE | 2022-12-07 07:46 | CA_ITS ---
Acquisition Time: 2022-12-07 08:02:40 Total Exercise Time: 00:04:02 Test Indications: CHEST PAIN Medications: SEE H Protocol: COLLINS Max HR: 146 BPM 98% of Pred: 148 BPM Max BP: 146/082 mmHG Max Work Load: 5.8 METS Exercise stress test with exercise 4 min 2 sec of Clolins protocol, achieving 97% MPHR, with moderate sob and request to stop, no chest discomfort, with isolated PACs, atrial cuplets and triplets during exercise, isolated PVCs, with normotensive response to exercise, without EKG changes meeting criteria for ischemia. In recovery his breathing quickly improved. Test reviewed with Dr Cutler. Referred By: Alessandro Abraham Overread By: STEPHANIE RUGGIERO
== END ==
LOC: HO.CARD 07:43
PROVIDERS: PCP Internal Medicine; Visit Provider Internal Medicine Cardiovascular Disease
DX: R07.2 Precordial pain (principal)
CPT/HCPCS: 93017

== ENCOUNTER 2023-01-04 07:38 | Emergency (ER) | payer OTHER, SELFPAY ==
[2023-01-04 07:44] VITALS: BP 145/94; BP 190/90; PULSE 94; RESP 15; TEMP 37.1; O2SAT 95; O2SAT 96; BMI 25.0
--- NOTE | 2023-01-04 07:51 | ED.ABDPAIN ---
HPI - Abdominal Pain General Chief Complaint: Abdominal Pain Stated Complaint: abdominal pain Time Seen by Provider: 01/04/23 07:50 Source: patient, EMS, RN notes reviewed and old records reviewed Mode of arrival: EMS History of Present Illness HPI narrative: 72-year-old male past medical history of asthma, esophageal dysphagia, hematuria, HTN, PVD, presenting to the ED complaining of epigastric abdominal pain, nausea, dry heaving, chills, lightheadedness/dizziness, increased anxiety, CP and SOB since 00:30 last night. Reports odorous urine, increased anxiety/palpitations which prohibited him from sleeping. Admits to similar symptoms about 2 weeks ago, was not evaluated at that time. Denies fever, chills, cough, vomiting, diarrhea/constipation MD elicited complaint: abdominal pain Related Data Home Medications Medication Instructions Recorded Confirmed albuterol sulfate 90 mcg/actuation 2 puff PO Q4-6H PRN 08/27/20 11/25/22 aerosol inhaler atorvastatin 40 mg tablet mg PO 08/27/20 11/25/22 hydrochlorothiazide 12.5 mg tablet 12.5 mg PO DAILY 08/27/20 11/25/22 zolpidem 5 mg tablet 5 mg PO BEDTIME 08/27/20 11/25/22 bupropion HCl 100 mg tablet,12 hr 200 mg PO DAILY 04/22/21 11/25/22 sustained-release fluticasone propionate 100 1 inh PO BID 04/22/21 11/25/22 mcg/actuation blister powder for inhalation (Flovent Diskus) hydroxyzine HCl 25 mg tablet 25 mg PO DAILY PRN 04/22/21 11/25/22 buspirone 10 mg tablet 10 mg PO BID anxiety 12/17/21 11/25/22 escitalopram oxalate 10 mg tablet 10 mg PO DAILY 12/17/21 11/25/22 Previous Rx's Medication Instructions Recorded terazosin 10 mg capsule 10 mg PO BEDTIME 90 days #90 caps 03/17/22 Allergies Allergy/AdvReac Type Severity Reaction Status Date / Time oxycodone [From PERCOCET] Allergy Unknown HIVES Verified 11/25/22 11:22 Review of Systems Review of Systems Constitutional: No Fever, + Chills, No Fatigue, No Malaise ENT/Mouth: No Ear Pain, No Nasal Congestion, No sore throat, No Rhinorrhea, No Swallowing Difficulty Eyes: No Eye Pain, No Swelling, No Redness, No Vision Changes Cardiovascular: + Chest Pain, + SOB, No Edema, No Palpitations Respiratory: No Cough, No Sputum, No Dyspnea Gastrointestinal: + Nausea, No Vomiting, No Diarrhea, No Constipation, + Abdominal pain Genitourinary: No Dysuria, No Urinary Frequency, No Hematuria, No Flank Pain, No Urinary Flow Changes Musculoskeletal: No joint pain, No Myalgias, No Joint Swelling Skin: No Skin Lesions, No rash Neuro: No Weakness, No Numbness, No Paresthesias, No Loss of Consciousness, +lightheaded/ Dizziness, No Headache Yes all other systems are reviewed and are negative Constitutional: Reports as per HPI Denies Abnormal speech present [facility] Past Medical History Attestation statement: The following information was validated with the patient. Source: old records reviewed Medical History Asthma BPH loc w urin obs/LUTS Esophageal dysphagia Hematuria HTN (hypertension) PVD (peripheral vascular disease) Vitamin D deficiency Surgical History History of surgery Hx of prostatectomy Social History Social History Alcohol intake: never Patient Tobacco Use Status: Former Tobacco user Advance Directives: No Advance Directives Information Provided: Yes Physical Exam ED Vital Signs: Vital Signs - 24 hr 01/04/23 07:44 01/04/23 08:39 01/04/23 09:28 Temperature 98.8 F 98.8 F Pulse Rate 94 85 95 Respiratory Rate 15 16 16 Blood Pressure 145/94 H 131/91 H 168/96 H Pulse Oximetry 95 95 96 Oxygen Delivery Method Room Air Room Air Room Air 01/04/23 09:57 01/04/23 10:00 01/04/23 10:00 Temperature Pulse Rate 86 88 90 Respiratory Rate Blood Pressure 164/100 H 154/95 H 160/86 H Pulse Oximetry Oxygen Delivery Method 01/04/23 11:18 Temperature 98.8 F Pulse Rate 78 Respiratory Rate 15 Blood Pressure 127/94 H Pulse Oximetry 95 Oxygen Delivery Method Room Air BMI result Body Mass Index 25.0 Const General: cooperative, healthy appearing, no acute distress and anxious Orientation/consciousness: patient oriented x3 Limitations: no limitations HENMT Head: Yes normal to inspection and Yes atraumatic Ears: hearing grossly normal bilaterally General nose exam: Normal external nose present Face and sinus: Yes normal facial exam Eyes General: appearance normal, both eyes and all related structures EOM: EOMs intact bilaterally Neck Neck: Yes normal visual inspection and Yes no meningeal signs Chest Chest palpation & inspection: normal inspection of the chest Resp Effort & Inspection: normal respiratory effort and no respiratory distress Auscultation: clear to auscultation bilaterally, no crackles, no rhonchi and no wheezes Cardio Rate: regular rate Heart sounds: S1 normal heart sound present and S2 normal heart sound present GI Inspection: Yes normal to inspection Palpation (GI): Soft to palpation, Tenderness to palpation present (GI) in the epigastrum; with no rebound tenderness, no guarding and not rigid General: Yes no CVA tenderness Back/Spine/Pelvis Back: no CVA tenderness Skin Rashes: no rashes Wounds: no wounds Neuro General: patient oriented x3, tone normal, moves all extremities, no meningeal signs, no focal motor deficits and CN's II-XI intact bilaterally Cognition (Neuro): normal cognition Speech: No Abnormal speech present Motor exam (neuro): 5/5 motor strength present throughout Extrem General: Yes normal to inspection, Yes no pedal edema and Yes no calf tenderness Course Course Course Narrative: -patient became increasingly anxious > given p.o. Ativan -1236--chronic leukopenia. Labs otherwise reassuring. Troponin x2 negative. UA negative -CXR unremarkable CT abdomen pelvis w IV con IMPRESSION: 1.? No acute intra-abdominal/pelvic abnormality to explain the patient's symptoms. 2.? Bilateral renal cysts demonstrate benign features not requiring follow-up. Nonobstructing interpolar left intrarenal calculi. 3.? Large prostatomegaly with postsurgical changes. Mild mural thickening in the urinary bladder without focal abnormality likely representing chronic changes. 4.? L5-S1 severe degenerative disc disease and bilateral neural foraminal narrowing. >1240--on re-evaluation patient is sleeping comfortably, awoken, reports symptomatic improvement. Results discussed with community organization aide. Results discussed with patient including worrisome signs and symptoms and strict return precautions, and when to return to the emergency department. They verbalized understanding and feel safe for discharge at this time. Medical Decision Making Medical Decision Making [facility] Narrative: 72-year-old male past medical history of asthma, esophageal dysphagia, hematuria, HTN, PVD, presenting to the ED complaining of epigastric abdominal pain, nausea, dry heaving, chills, lightheadedness/dizziness, increased anxiety, CP and SOB since 00:30 last night. On exam hypertensive, anxious, NAD, nontoxic appearing, lungs CTA, abdomen soft epigastric tenderness, no rebound or guarding, no CVAT. Concern for atypical ACS vs pancreatitis/?cholecystitis/lithiasis vs anxiety. Lower suspicion for PE, diverticulitis/appendicitis. Rule out UTI. Unlikely dissection Plan: EKG, labs, UA, CXR, CT AP, Pepcid, IVF, Atarax, re-evaluate Please refer to course for remaining clinical decision making, interpretation of labs/imaging results, and discussions with consultants and/or family members. Differential Diagnosis Differential Diagnoses: The differential diagnosis associated with the presentation includes As above Admission/Observation Consideration of admission/observation: Escalation of care including admission/observation considered Lab Data [facility] Lab Attestation statement: I reviewed the patient's lab results. 01/04/23 07:58 01/04/23 07:58 Labs: Lab Results 01/04/23 01/04/23 01/04/23 Range/Units 07:58 07:58 07:58 WBC 4.2 L (4.8-10.8) X10*3/uL RBC 5.07 (4.60-5.80) X10*6/uL Hgb 14.6 (14.0-18.0) g/dl Hct 43.9 (42.0-52.0) % MCV 86.6 (80.0-98.0) fL MCH 28.8 (27.0-33.0) pg MCHC 33.3 (31.0-36.0) g/dl RDW 12.6 (11.0-16.0) % Plt Count 173 (160-400) X10*3/uL MPV 10.3 (9.4-12.4) fL Immature Gran % (Auto) 0.5 H (0.0-0.4) % Neut % (Auto) 77.2 H (45-73) % Lymph % (Auto) 16.8 L (20-40) % Mills % (Auto) 4.1 (2-11) % Eos % (Auto) 0.7 (0-4) % Baso % (Auto) 0.7 (0-2) % Lymph # (Auto) 0.7 L (1.2-4.9) X10*3/uL Mills # (Auto) 0.2 (0.1-1.2) X10*3/uL Eos # (Auto) 0.0 (0.0-0.4) X10*3/uL Baso # (Auto) 0.0 (0.0-0.2) X10*3/uL Abs Immat Gran (auto) 0.02 (0.00-0.03) X10*3/uL Absolute Neuts (auto) 3.2 (2.0-8.3) x10*3/uL Absolute Nucleated RBC 0.000 (0.0-0.012) X10*3/uL Nucleated RBC % (auto) 0.0 (0.0-0.2) /100WBC Sodium 141 (135-145) mmol/L Potassium 4.2 (3.3-5.1) mmol/L Chloride 106 (96-108) mmol/L Carbon Dioxide 28 (22-29) mmol/L Anion Gap 11 L (12-20) BUN 21 H (9-16) mg/dL Creatinine 0.80 (0.5-1.4) mg/dL Estim Creat Clear Calc 75.3 Estimated GFR > 60 Random Glucose 101 (60-115) mg/dL Calcium 9.8 (8.4-10.2) mg/dL Magnesium 2.2 (1.6-2.6) mg/dL Total Bilirubin 0.9 (0.0-1.0) mg/dL Direct Bilirubin 0.2 (0.0-0.5) mg/dL AST 19 (5-37) U/L ALT 21 (0-40) U/L Alkaline Phosphatase 51 (39-117) U/L Troponin I High Sens < 2.7 (<3.5-35.0) ng/L Total Protein 7.7 (6.5-8.0) g/dL Albumin 4.8 (3.5-5.0) g/dL Lipase 36 (8-78) U/L Urine Color Urine Appearance Urine pH (5.0-9.0) Ur Specific [place] (1.005-1.025) Urine Protein (Neg-Trace) mg/dL Urine Glucose (UA) (Negative) mg/dL Urine Ketones (Negative) mg/dL Urine Blood (Negative) Urine Nitrite (Negative) Ur Leukocyte Esterase (Negative) 01/04/23 01/04/23 Range/Units 10:01 11:02 WBC (4.8-10.8) X10*3/uL RBC (4.60-5.80) X10*6/uL Hgb (14.0-18.0) g/dl Hct (42.0-52.0) % MCV (80.0-98.0) fL MCH (27.0-33.0) pg MCHC (31.0-36.0) g/dl RDW (11.0-16.0) % Plt Count (160-400) X10*3/uL MPV (9.4-12.4) fL Immature Gran % (Auto) (0.0-0.4) % Neut % (Auto) (45-73) % Lymph % (Auto) (20-40) % Mills % (Auto) (2-11) % Eos % (Auto) (0-4) % Baso % (Auto) (0-2) % Lymph # (Auto) (1.2-4.9) X10*3/uL Mills # (Auto) (0.1-1.2) X10*3/uL Eos # (Auto) (0.0-0.4) X10*3/uL Baso # (Auto) (0.0-0.2) X10*3/uL Abs Immat Gran (auto) (0.00-0.03) X10*3/uL Absolute Neuts (auto) (2.0-8.3) x10*3/uL Absolute Nucleated RBC (0.0-0.012) X10*3/uL Nucleated RBC % (auto) (0.0-0.2) /100WBC Sodium (135-145) mmol/L Potassium (3.3-5.1) mmol/L Chloride (96-108) mmol/L Carbon Dioxide (22-29) mmol/L Anion Gap (12-20) BUN (9-16) mg/dL Creatinine (0.5-1.4) mg/dL Estim Creat Clear Calc Estimated GFR Random Glucose (60-115) mg/dL Calcium (8.4-10.2) mg/dL Magnesium (1.6-2.6) mg/dL Total Bilirubin (0.0-1.0) mg/dL Direct Bilirubin (0.0-0.5) mg/dL AST (5-37) U/L ALT (0-40) U/L Alkaline Phosphatase (39-117) U/L Troponin I High Sens 3.0 (<3.5-35.0) ng/L Total Protein (6.5-8.0) g/dL Albumin (3.5-5.0) g/dL Lipase (8-78) U/L Urine Color Yellow Urine Appearance Clear Urine pH 7.0 (5.0-9.0) Ur Specific [place] 1.020 (1.005-1.025) Urine Protein Negative (Neg-Trace) mg/dL Urine Glucose (UA) Negative (Negative) mg/dL Urine Ketones Negative (Negative) mg/dL Urine Blood Negative (Negative) Urine Nitrite Negative (Negative) Ur Leukocyte Esterase Negative (Negative) Radiology Impression Discussion of test interpretation with radiology: I have reviewed the radiologist's reading. Independent Historian Clinical information obtained from an independent historian. History obtained from or confirmed by: EMS External Record Review External record reviewed: Inpatient record, Office record, Outpatient record, Prior outpatient labs, Prior outpatient radiology, Primary care record and Outside ED record Tests considered The following testing was considered but not selected: As above Prescription Management I considered prescription management with: Pain Medication Medications Administered Discontinued Medications Generic Name Dose Route Start Last Admin Trade Name Freq PRN Reason Stop Dose Admin Al Hydroxide/Mg Hydroxide 30 ml 01/04/23 08:06 01/04/23 08:32 Magnesium Hydrox/Alum Hydrox 30 Ml Oral.Susp PO 01/04/23 08:07 30 ml ONCE ONE Administration Famotidine 20 mg 01/04/23 08:06 01/04/23 08:32 Famotidine/Pf 20 Mg/2 Ml Vial IVPUSH 01/04/23 08:07 20 mg ONCE ONE Administration Hydroxyzine HCl 25 mg 01/04/23 08:06 01/04/23 08:32 Hydroxyzine Hcl 25 Mg Tablet PO 01/04/23 08:07 25 mg ONCE ONE Administration Sodium Chloride 1,000 mls @ 999 mls/hr 01/04/23 08:15 01/04/23 09:45 Ns IV 01/04/23 09:15 Infused .Q1H1M ELISA Infusion Iohexol 85 ml 01/04/23 09:20 01/04/23 09:21 Iohexol 350 Mg/Ml 100 Ml Infus..Btl IV 01/04/23 09:21 85 ml ONCE ONE Administration Lorazepam 1 mg 01/04/23 09:40 01/04/23 10:12 Lorazepam 1 Mg Tablet PO 01/04/23 09:41 1 mg ONCE ONE Administration Discharge Plan Discharge Clinical Impression: Chills, Anxiety, Abdominal pain, epigastric Patient Disposition: Home, Self-Care Instructions: Abdominal Pain (ED), Anxiety (ED) Additional Instructions: Your blood work and imaging studies were reassuring Please have close follow-up with your doctor Your CT scan does show bilateral renal cysts which appear benign however please follow-up with your doctor in regards to this. If her symptoms persist or worsen/become unbearable, you have fever, constant worsening chest pain/shortness of breath or abdominal pain return to the ED Anayeli an?lisis de jane y estudios de im?genes fueron tranquilizadores. Por favor tenga un seguimiento cercano con adam m?dico Adam tomograf?a computarizada muestra quistes renales bilaterales que parecen benignos; sin embargo, chad un seguimiento con adam m?dico con respecto a esto. Si anayeli s?ntomas persisten o empeoran/se vuelven insoportables, usted tiene fiebre, empeoramiento angel del dolor en el pecho/dificultad para respirar o dolor abdominal regrese al servicio de urgencias Prescriptions: No Action zolpidem 5 mg tablet 5 mg PO BEDTIME albuterol sulfate 90 mcg/actuation HFA aerosol inhaler 2 puff PO Q4-6H PRN hydrochlorothiazide 12.5 mg tablet 12.5 mg PO DAILY atorvastatin 40 mg tablet PO hydroxyzine HCl 25 mg tablet 25 mg PO DAILY PRN Flovent Diskus 100 mcg/actuation blister with device 1 inh PO BID bupropion HCl 100 mg tablet sustained-release 12 hr 200 mg PO DAILY escitalopram oxalate 10 mg tablet 10 mg PO DAILY buspirone 10 mg tablet 10 mg PO BID terazosin 10 mg capsule 10 mg PO BEDTIME 90 Days Qty: 90 3RF Referrals: Niki Ramos MD [Primary Care Provider] - 3 days Interventions: ED Discharge Assessment Last Done: 01/04/23 13:06 Discharge Date/Time: 01/04/23 13:06 Print Language: Polish
[2023-01-04 08:39] VITALS: BP 131/91; PULSE 85; RESP 16; TEMP 37.1; O2SAT 95
--- NOTE | 2023-01-04 09:27 | PC.NURSE ---
pt reporting throat tightness and sob that worsened in the last few moments, no rash no airway edema handles secretions
[2023-01-04 09:28] VITALS: BP 168/96; PULSE 95; RESP 16; O2SAT 96
[2023-01-04 09:57] VITALS: BP 164/100; PULSE 86
[2023-01-04 10:00] VITALS: BP 154/95; BP 160/86; PULSE 88; PULSE 90
[2023-01-04 11:18] VITALS: BP 127/94; PULSE 78; RESP 15; TEMP 37.1; O2SAT 95
--- NOTE | 2023-01-04 11:19 | PC.NURSE ---
pt resting in bed, no complaints of pain or anxiety currently. resp equal and unlabored
== END 2023-01-04 13:06 | disposition home or self-care (01) ==
PROVIDERS: Emergency Provider Emergency Medicine Emergency Medical Services; PCP Internal Medicine
DX: R68.83 Chills (without fever) (principal); F41.9 Anxiety disorder, unspecified; R10.13 Epigastric pain; I10 Essential (primary) hypertension; Z87.891 Personal history of nicotine dependence
CPT/HCPCS: 36415; 71045; 74177; 80048; 80076; 81003; 83690; 83735; 84484; 85025; 93005; 96361; 96374; 99284; 99285; Q9967

== ENCOUNTER → 2023-01-08 07:58 | Outpatient (REF) | payer OTHER, SELFPAY | LOC: HO.CARD 07:58 | PROVIDERS: PCP Internal Medicine; Visit Provider Internal Medicine Cardiovascular Disease | DX: R07.2 Precordial pain (principal) | CPT/HCPCS: 93306 ==

== ENCOUNTER 2023-05-11 07:45 | Outpatient (REF) | payer OTHER, SELFPAY ==
[2023-05-11 09:14] LABS: Prostate Specific Antigen 10.88 ng/mL (<0.05-4.0)
== END 2023-05-11 07:46 | disposition home or self-care (01) ==
LOC: HO.LAB 07:45
PROVIDERS: Visit Provider Urology
DX: N40.1 Benign prostatic hyperplasia with lower urinary tract symptoms (principal); N13.8 Other obstructive and reflux uropathy; Z12.5 Encounter for screening for malignant neoplasm of prostate
CPT/HCPCS: 36415; 84153

== ENCOUNTER 2023-05-12 12:55 | Outpatient (AMB) | payer OTHER, SELFPAY ==
--- NOTE | 2023-05-12 14:03 | MHC.OFFVIS ---
Intake Intake Visit Reasons: 1Y PSA(set) Intake Note: Patient is Present for Follow Up Urology Medication:Terazosin Antibiotic Allergies:None Blood Thinners: None PVR: 0 Allergies oxycodone [From PERCOCET] Allergy (Unknown, Verified 05/12/23 14:05) HIVES Medication List - Last Reconciled 05/12/23 by Gilles Whitley MD albuterol sulfate 90 mcg/actuation 2 puffs PO Q4-6H PRN atorvastatin mg PO bupropion HCl 200 mg PO DAILY buspirone 10 mg PO BID escitalopram oxalate 10 mg PO DAILY fluoxetine 20 mg PO DAILY fluticasone propionate 100 mcg/actuation (Flovent Diskus) 1 inh PO BID hydrochlorothiazide 12.5 mg PO DAILY hydroxyzine HCl 25 mg PO DAILY PRN lorazepam 0.5 mg PO BID PRN montelukast 10 mg PO DAILY terazosin 10 mg PO BEDTIME 90 days zolpidem 5 mg PO BEDTIME HPI HPI Comments History of Present Illness Details Jayesh is a pleasant male. He is a patient of Dr. Simmons. He is seen for the following urologic conditions - lower urinary tract symptoms - nephrolithiasis PVR today 0 Micro hematuria - will check cytology JONO 3+ soft PSA high Initiate finasteride Bladder ultrasound Lower urinary tract symptoms Here for follow-up visit for hematuria and lower urinary tract symptoms Current therapy terazosin 10 mg effective Prior therapy tamsulosin Prior procedures laser prostatectomy 2019 Cystoscopy 10/23 mild regrowth with high bladder lip - TURP defect, mild tightness PSA 05/27 11 Nephrolithiasis Prior stone Imaging - 02/23 CT scan 1 mm stone PFSH Medical History Vitamin D deficiency Hematuria PVD (peripheral vascular disease) Esophageal dysphagia BPH loc w urin obs/LUTS Asthma HTN (hypertension) Surgical History History of surgery Hx of prostatectomy Social History Alcohol intake: never Patient Tobacco Use Status: Former Tobacco user Review of Systems Const Denies chills and Denies fever(s) Card Reports no additional complaints and Denies syncope Resp Denies cough GI Denies abdominal pain and Denies heartburn Reports as per HPI and Denies change in libido Neuro Denies syncope Psych Denies change in libido Endo Denies change in libido Physical Exam Const General: cooperative, healthy appearing, comfortable and no acute distress Orientation/consciousness: patient oriented x3 HEENT Face and sinus: Yes normal facial exam Mouth: moist mucous membranes Neck Neck: Yes normal visual inspection, Yes full ROM and Yes trachea midline Chest Chest palpation & inspection: normal inspection of the chest Resp Effort & Inspection: normal respiratory effort, able to speak in complete sentences and no respiratory distress GI Inspection: Yes normal to inspection Rectal Exam - Male: Yes normal sphincter tone and Yes prostate normal Male General Exam: Yes normal external exam Penis: normal penis and circumcised Meatus: meatus normal Scrotum: scrotum normal Testes: Testes normal Back/Spine/Pelvis Cervical Spine: normal cervical lordosis Thoracic/Lumbar Spine: thoracic and lumbar spine normal to inspection Skin General skin exam: no rashes or lesions noted Neuro General: patient oriented x3, gait normal, tone normal and moves all extremities Extrem General: Yes normal to inspection and Yes capillary refill normal Office Procedures Post Void Residual Post Residual Void Post Void Residual (PVR): 0 56114-[id number] Void Residual by ultrasound Results AMB Urinalysis, Automated UA Leukoctes 0 Jose Guadalupe/uL Last Edit by WILLI Griggs on 05/12/23 14:13 UA Nitrite Negative Last Edit by Janelle Joshi Juan M on 05/12/23 14:13 UA Urobilinogen 0.2 mg/dL Last Edit by WILLI Griggs on 05/12/23 14:13 UA Protein 0 mg/dL Last Edit by WILLI Griggs on 05/12/23 14:13 UA pH 6.0 Last Edit by Janelle Joshi [facility] on 05/12/23 14:13 UA Blood 80 Kirk/uL Last Edit by WILLI Griggs on 05/12/23 14:13 UA Specific [place] 1.010 Last Edit by WILLI Griggs on 05/12/23 14:13 UA Ketone Negative Last Edit by WILLI Griggs on 05/12/23 14:13 UA Bilirubin 0 mg/dL Last Edit by WILLI Griggs on 05/12/23 14:13 UA Glucose 0 mg/dL Last Edit by WILLI Griggs on 05/12/23 14:13 Results Reviewed Results Reviewed: Laboratory Last Values Urine pH (Auto) 6.0 05/12/23 14:06 Specific [place] (Auto) 1.010 05/12/23 14:06 Urine Protein (Auto) 0 mg/dL 05/12/23 14:06 Glucose (UA)(Auto) 0 mg/dL 05/12/23 14:06 Urine Ketones (Auto) Negative 05/12/23 14:06 Urine Blood (Auto) 80 Kirk/uL 05/12/23 14:06 Urine Nitrite (Auto) Negative 05/12/23 14:06 Urine Bilirubin (Auto) 0 mg/dL 05/12/23 14:06 Urine Urobilinogen (Auto) 0.2 mg/dL 05/12/23 14:06 Leukocyte Esterase (Auto) 0 Jose Guadalupe/uL 05/12/23 14:06 Assessment & Plan Assessment & Plan (1) Nephrolithiasis: Code(s): N20.0 - Calculus of kidney (2) Urinary retention with incomplete bladder emptying: Code(s): R33.9 - Retention of urine, unspecified (3) BPH w urinary obs/LUTS: Comment: Laser prostatectomy 2018 Code(s): N40.1 - Benign prostatic hyperplasia with lower urinary tract symptoms; N13.8 - Other obstructive and reflux uropathy Plan Initiate finasteride Six month follow-up bladder ultrasound Orders: Orders AMB Post Void Residual by ultrasound Today N13.8 - Other obstructive and reflux uropathy, N40.1 - Benign prostatic hyperplasia with lower urinary tract symptoms AMB Urinalysis Automated Today Z13.9 - Encounter for screening, unspecified Urine Cytology Today R31.0 - Gross hematuria PSA,Total (Free>4and<10) 6 Months N13.8 - Other obstructive and reflux uropathy, N40.1 - Benign prostatic hyperplasia with lower urinary tract symptoms US bladder 6 Months N13.8 - Other obstructive and reflux uropathy, N40.1 - Benign prostatic hyperplasia with lower urinary tract symptoms, R39.12 - Poor urinary stream Medications: New finasteride 5 mg PO DAILY 90 days 90 tabs 1RF N13.8 - Other obstructive and reflux uropathy, N40.1 - Benign prostatic hyperplasia with lower urinary tract symptoms, R33.9 - Retention of urine, unspecified Refilled terazosin 10 mg PO BEDTIME 90 caps 3RF 90 days N13.8 - Other obstructive and reflux uropathy, N40.1 - Benign prostatic hyperplasia with lower urinary tract symptoms Patient Instructions: Imaging studies, laboratory and physical exam results were discussed and reviewed in detail. No major barriers to patient understanding were identified. An opportunity to ask questions regarding the treatment plan was provided. All questions were answered. The patient expressed understanding and agreement with the above treatment plan. The patient is aware they should contact our office by phone for worsening of their current condition or the appearance of new urologic symptoms. Compliance is encouraged with any medications and followup testing that is ordered. It is a privilege to participate in the urologic care of your patient. If you have any questions or concerns regarding treatment for the above conditions, or other urologic issues, please do not hesitate to contact me. The office telephone contact is [phone]. This note is constructed using voice recognition software. While every effort has been made to ensure accuracy occupational therapist assistant errors may have been included. Yours sincerely, Dr Gilles Whitley MD, [facility] - Urology Providers of Expert, Compassionate Care for the Genitourinary System Coding Level of Care Code Est Pt Level 4 (00527) Diagnoses Nephrolithiasis N20.0 Urinary retention with incomplete bladder emptying R33.9 BPH w urinary obs/LUTS N40.1; N13.8 CPT Codes Post Residual Void - PVR CPT Code: 80295-Znnm Void Residual by ultrasound ([id number])
== END 2023-05-12 14:30 | disposition home or self-care (01) ==
PROVIDERS: PCP Internal Medicine; Visit Provider Urology
DX: N20.0 Calculus of kidney (principal); R33.9 Retention of urine, unspecified; N40.1 Benign prostatic hyperplasia with lower urinary tract symptoms; N13.8 Other obstructive and reflux uropathy
CPT/HCPCS: 99214

== ENCOUNTER 2023-05-12 12:55 | Outpatient (REF) | payer OTHER, SELFPAY ==
[2023-05-12 16:53] LABS: Urine Cytology See Pathology rpt
== END 2023-05-12 12:56 | disposition home or self-care (01) ==
LOC: HO.LAB 12:55
PROVIDERS: PCP Internal Medicine; Visit Provider Urology
DX: R31.0 Gross hematuria (principal); N20.0 Calculus of kidney; R33.9 Retention of urine, unspecified; N40.1 Benign prostatic hyperplasia with lower urinary tract symptoms; N13.8 Other obstructive and reflux uropathy; R39.12 Poor urinary stream; Z79.899 Other long term (current) drug therapy
CPT/HCPCS: 51798; 81003; 88112; 99212

== ENCOUNTER 2023-10-04 10:13 | Outpatient (REF) | payer OTHER, SELFPAY ==
[2023-10-04 11:18] LABS: MANUAL DIFF FLAG NO
[2023-10-04 11:23] LABS: Basophils Percent Auto 0.7 % (0-2); Eosinophils Absolute Auto 0.1 X10*3/uL (0.0-0.4); Eosinophils Percent Auto 1.8 % (0-4); Hematocrit 44.6 % (42.0-52.0); Imm Gran Abs Auto 0.02 X10*3/uL (0.00-0.03); Imm Gran Pct Auto 0.5 % (0.0-0.4); Lymphocytes Absolute Auto 1.1 X10*3/uL (1.2-4.9); Lymphocytes Percent Auto 25.4 % (20-40); Mean Corpuscular HGB Conc 33.6 g/dl (31.0-36.0); Mean Corpuscular Hemoglobin 29.2 pg (27.0-33.0); Mean Corpuscular Volume 86.9 fL (80.0-98.0); Mean Platelet Volume 10.1 fL (9.4-12.4); Monocytes Absolute Auto 0.3 X10*3/uL (0.1-1.2); Monocytes Percent Auto 6.8 % (2-11); Neutrophils Absolute Auto 2.9 x10*3/uL (2.0-8.3); Neutrophils Percent Auto 64.8 % (45-73); Platelet Count 180 X10*3/uL (160-400); Red Blood Count 5.13 X10*6/uL (4.60-5.80); White Blood Count 4.4 X10*3/uL (4.8-10.8)
[2023-10-04 11:36] LABS: Estimated Average Glucose 111 mg/dL; Hemoglobin A1c % 5.5 % (<6.0)
[2023-10-04 11:51] LABS: Alanine Aminotransferase 20 U/L (0-40); Albumin Level 4.5 g/dL (3.5-5.0); Alkaline Phosphatase 54 U/L (39-117); Anion Gap 8 (12-20); Aspartate Amino Transferase 20 U/L (5-37); Bilirubin Direct 0.2 mg/dL (0.0-0.5); Bilirubin Total 0.7 mg/dL (0.0-1.0); Blood Urea Nitrogen 14 mg/dL (9-16); Calcium 9.6 mg/dL (8.4-10.2); Carbon Dioxide 31 mmol/L (22-29); Chloride 107 mmol/L (96-108); Cholesterol 211 mg/dL (<200); Estimated Glomerular Filt Rate > 60; Glucose Random 99 mg/dL (60-115); HDL Cholesterol 50 mg/dL (>40); LDL Cholesterol Calculated 136 mg/dL (<100); Potassium 3.8 mmol/L (3.3-5.1); Sodium 142 mmol/L (135-145); Total Protein 7.4 g/dL (6.5-8.0); Triglycerides 128 mg/dL (<150)
== END 2023-10-04 10:14 | disposition home or self-care (01) ==
LOC: HO.HHCL 10:13
PROVIDERS: Visit Provider Internal Medicine
DX: I10 Essential (primary) hypertension (principal)
CPT/HCPCS: 36415; 80048; 80061; 80076; 83036; 85025

== ENCOUNTER → 2023-11-02 12:26 | Outpatient (BNVA) | payer OTHER, SELFPAY | PROVIDERS: PCP Internal Medicine; Visit Provider Nurse Practitioner Family ==

== ENCOUNTER 2023-11-03 10:15 | Outpatient (REF) | payer OTHER, SELFPAY ==
--- NOTE | ~2023-11-03 | US_ITS ---
EXAMINATION: US PELVIS LIMITED (BLADDER) CLINICAL INFORMATION: Poor urinary stream. COMPARISON: CT abdomen and pelvis 01/04/2023. TECHNIQUE: Real-time imaging of the bladder. FINDINGS: BLADDER: Trabeculated urinary bladder. Small right posterolateral diverticulum. Prevoid volume 2 94 mL. Post void volume 92 mL. Bilateral ureteral jets are seen. ADDITIONAL FINDINGS: 75 mL prostate. US/US bladder IMPRESSION: Enlarged prostate and trabeculated urinary bladder. Post void residual of 92 mL.
== END 2023-11-03 10:16 | disposition home or self-care (01) ==
LOC: HO.US 10:15
PROVIDERS: PCP Internal Medicine; Visit Provider Urology
DX: R39.12 Poor urinary stream (principal); N40.1 Benign prostatic hyperplasia with lower urinary tract symptoms; N13.8 Other obstructive and reflux uropathy
CPT/HCPCS: 76857

== ENCOUNTER 2023-11-16 14:28 | Emergency (ER) | payer OTHER, SELFPAY ==
--- NOTE | ~2023-11-16 | XR_ITS ---
EXAMINATION: XR CHEST CLINICAL INFORMATION: Shortness of breath. COMPARISON: January 04, 2023. TECHNIQUE: Portable AP view of the chest was obtained. FINDINGS: The study is limited by portable technique. No acute infiltrate, effusion, pneumothorax is seen. The heart appears normal in size. The aorta is uncoiled, suggesting hypertension. Degenerative changes of the spine. XR/XR chest 1V IMPRESSION: No acute finding.
--- NOTE | 2023-11-16 14:32 | ECG_ITS ---
Test Reason : CP Blood Pressure : / mmHG Vent. Rate : 087 BPM Atrial Rate : 087 BPM P-R Int : 132 ms QRS Dur : 094 ms QT Int : 366 ms P-R-T Axes : 077 069 073 degrees QTc Int : 440 ms Normal sinus rhythm Normal ECG When compared with ECG of 04-JAN-2023 07:45, No significant change was found Referred By: Generic ED Physician Electronically Signed By:JARED LALA MD
[2023-11-16 14:35] VITALS: BP 164/104; PULSE 77; O2SAT 98
[2023-11-16 14:36] VITALS: BP 159/101; PULSE 92; RESP 18; O2SAT 96; BMI 25.3
[2023-11-16 14:40] VITALS: TEMP 37.2
--- NOTE | 2023-11-16 14:56 | ED.CHESTPAIN ---
HPI - Chest Pain General Chief Complaint: Chest Pain Stated Complaint: CP,DIZZY,H/A X 2 DAYS Time Seen by Provider: 11/16/23 14:41 Source: patient, EMS, old records reviewed and clinical data research Mode of arrival: EMS Limitations: language barrier History of Present Illness HPI narrative: 73-year-old Bruneian-speaking male with a history of BPH, kidney stones, anxiety, asthma, hypertension, PVD, dysphagia who presents to the ER from home via EMS for evaluation of an episode of diffuse chest pain that occurred yesterday, self resolved and then recurred again today prompting evaluation in the ER. Patient was seen in the past by Cardiology and had an unremarkable echo and a stress test performed, that was negative for ischemia. Patient states he was taken off of blood pressure medications by PCP. He does not monitor BP at home. He describes the chest pain as if air is caught and radiates into throat. Endorses blurred vision yesterday. Reports recent paresthesias in bilateral upper extremities at night. MD complaint: chest discomfort Onset (ago): day(s) Timing of current episode: episodic Prior episodes: Yes Onset: during rest Pain location: left chest Pain radiation: none Quality: sharp Relieving factors: nothing Exacerbating factors: nothing Treatment prior to arrival: none Risk Factors Coronary artery disease risk factors: hypertension Thoracic aortic dissection risk factors: none Related Data Home Medications ?Medication ?Instructions ?Recorded ?Confirmed albuterol sulfate 90 mcg/actuation 2 puff PO Q4-6H PRN 08/27/20 05/12/23 aerosol inhaler atorvastatin 40 mg tablet mg PO 08/27/20 05/12/23 zolpidem 5 mg tablet 5 mg PO BEDTIME 08/27/20 05/12/23 bupropion HCl 100 mg tablet,12 hr 200 mg PO DAILY 04/22/21 05/12/23 sustained-release hydroxyzine HCl 25 mg tablet 25 mg PO DAILY PRN 04/22/21 05/12/23 buspirone 10 mg tablet 10 mg PO BID anxiety 12/17/21 05/12/23 escitalopram oxalate 10 mg tablet 10 mg PO DAILY 12/17/21 05/12/23 fluoxetine 20 mg capsule 20 mg PO DAILY 05/12/23 05/12/23 lorazepam 0.5 mg tablet 0.5 mg PO BID PRN 05/12/23 05/12/23 montelukast 10 mg tablet 10 mg PO DAILY 05/12/23 05/12/23 fluticasone propionate 230 2 puff inhalation BID 11/02/23 mcg-salmeterol 21 mcg/actuation HFA inhaler (Advair HFA) Previous Rx's ?Medication ?Instructions ?Recorded finasteride 5 mg tablet 5 mg PO DAILY 90 days #90 tabs 05/12/23 terazosin 10 mg capsule 10 mg PO BEDTIME 90 days #90 caps 05/12/23 bisacodyl 5 mg tablet,delayed 20 mg (4 x 5 mg) PO ONCE 1 day #4 11/02/23 release (Dulcolax (bisacodyl)) tabs polyethylene glycol 3350 17 238 g PO ONCE #238 grams 11/02/23 gram/dose oral powder (Miralax) Allergies Allergy/AdvReac Type Severity Reaction Status Date / Time oxycodone [From PERCOCET] Allergy Unknown HIVES Verified 11/16/23 14:37 [facility] Past Medical History Medical History (Updated 11/17/23 @ 00:01 by Evita Carrizales) Vitamin D deficiency Hematuria PVD (peripheral vascular disease) Esophageal dysphagia BPH loc w urin obs/LUTS Asthma HTN (hypertension) Surgical History (Updated 11/02/23 @ 12:36 by WILLI Le) Hx of colonoscopy History of surgery Hx of prostatectomy Social History Social History Alcohol intake: former Patient Tobacco Use Status: Former Tobacco user Smoked in Last 30 Days: No Use of substances other than those prescribed or required for medical reasons: No Advance Directives: No Advance Directives Information Provided: Yes Physical Exam Vital Signs: Vital Signs: Last Vital Signs Temp 98.9 F 11/16/23 16:52 Pulse 81 11/16/23 16:52 Resp 16 11/16/23 16:52 BP 138/93 H 11/16/23 16:52 Pulse Ox 97 11/16/23 16:52 O2 Del Method Room Air 11/16/23 16:52 BMI result Body Mass Index 25.3 Appearance: Alert. Oriented X3. No acute distress. Head: normocephalic, atraumatic. Eyes: Pupils equal, round and reactive to light. ENT: Pharynx normal. Neck: Normal inspection. Neck supple. CVS: Normal heart rate and rhythm. Pulses normal. Respiratory: No respiratory distress. Breath sounds normal. Abdomen: Tenderness to palpation of epigastric region. Soft. Skin: Skin warm and dry. Normal skin color. Normal skin turgor. No rashes. Extremities: No lower extremity edema. No joint swelling. Neuro/psych: Oriented X 3. No motor deficit. No sensory deficit. Normal speech and cognition. Medications Administered Discontinued Medications Generic Name Dose Route Start Last Admin Trade Name Jacques PRN Reason Stop Dose Admin Acetaminophen 975 mg 11/16/23 16:34 11/16/23 16:48 Acetaminophen 325 Mg Tablet PO 11/16/23 16:35 975 mg ONCE ONE Administration Al Hydroxide/Mg Hydroxide 30 ml 11/16/23 15:11 11/16/23 15:30 Magnesium Hydrox/Alum Hydrox 30 Ml Oral.Susp PO 11/16/23 15:12 30 ml ONCE ONE Administration Famotidine 20 mg 11/16/23 15:11 11/16/23 15:30 Famotidine 20 Mg Tablet PO 11/16/23 15:12 20 mg ONCE ONE Administration Lidocaine HCl 15 ml 11/16/23 15:11 11/16/23 15:30 Lidocaine Hcl Viscous 2 % 15 Ml Solution MUCOUS MEM 11/16/23 15:12 15 ml ONCE ONE Administration Medical Decision Making Medical Decision Making [facility] Narrative: 73-year-old male presents the ER for evaluation of intermittent left-sided chest pain, described as sharp in nature, nonradiating. He also reported headache and some dizziness associated with it. He admits to anxiety. On arrival to the ER vital signs are stable. His high sensitivity troponin is negative. His heart score is 3. He was given a GI cocktail with improvement in his pain. Tylenol improved his headache. Doubt cardiac etiology. At this time comfortable discharge home with outpatient follow-up. Patient was given strict return precautions. superintendent house used to discuss results, diagnosis, plan and return precautions Differential Diagnosis Differential Diagnoses: The differential diagnosis associated with the presentation includes ACS, unstable angina, pneumonia, pneumothorax, myocarditis, pericarditis, viral syndrome Admission/Observation Consideration of admission/observation: Escalation of care including admission/observation considered Lab Data [facility] Lab Attestation statement: I reviewed the patient's lab results. Negative troponin, normal CBC, normal renal function 11/16/23 15:28 11/16/23 15:29 Labs: Lab Results 11/16/23 11/16/23 Range/Units 15:28 15:29 WBC 4.9 (4.8-10.8) X10*3/uL RBC 4.98 (4.60-5.80) X10*6/uL Hgb 14.5 (14.0-18.0) g/dl Hct 43.0 (42.0-52.0) % MCV 86.3 (80.0-98.0) fL MCH 29.1 (27.0-33.0) pg MCHC 33.7 (31.0-36.0) g/dl RDW 12.2 (11.0-16.0) % Plt Count 187 (160-400) X10*3/uL MPV 9.8 (9.4-12.4) fL Immature Gran % (Auto) 0.2 (0.0-0.4) % Neut % (Auto) 74.9 H (45-73) % Lymph % (Auto) 15.9 L (20-40) % Kinney % (Auto) 6.8 (2-11) % Eos % (Auto) 1.6 (0-4) % Baso % (Auto) 0.6 (0-2) % Lymph # (Auto) 0.8 L (1.2-4.9) X10*3/uL Kinney # (Auto) 0.3 (0.1-1.2) X10*3/uL Eos # (Auto) 0.1 (0.0-0.4) X10*3/uL Baso # (Auto) 0.0 (0.0-0.2) X10*3/uL Abs Immat Gran (auto) 0.01 (0.00-0.03) X10*3/uL Absolute Neuts (auto) 3.6 (2.0-8.3) x10*3/uL Absolute Nucleated RBC 0.000 (0.0-0.012) X10*3/uL Nucleated RBC % (auto) 0.0 (0.0-0.2) /100WBC Sodium 142 (135-145) mmol/L Potassium 4.4 (3.3-5.1) mmol/L Chloride 104 (96-108) mmol/L Carbon Dioxide 31 H (22-29) mmol/L Anion Gap 11 L (12-20) BUN 12 (9-16) mg/dL Creatinine 0.72 (0.5-1.4) mg/dL Estim Creat Clear Calc 82.4 Estimated GFR > 60 Random Glucose 100 (60-115) mg/dL Calcium 9.9 (8.4-10.2) mg/dL Magnesium 2.0 (1.6-2.6) mg/dL Total Bilirubin 0.4 (0.0-1.0) mg/dL Direct Bilirubin 0.1 (0.0-0.5) mg/dL AST 20 (5-37) U/L ALT 20 (0-40) U/L Alkaline Phosphatase 54 (39-117) U/L Troponin I High Sens 4.1 (<3.5-35.0) ng/L B-Natriuretic Peptide < 10 (<100) pg/mL Total Protein 7.3 (6.5-8.0) g/dL Albumin 4.5 (3.5-5.0) g/dL Influenza Type A (PCR) NEGATIVE (Negative) Influenza Type B (PCR) NEGATIVE (Negative) RSV RNA Qual (PCR) NEGATIVE (Negative) SARS-CoV-2 RNA (RT-PCR) NEGATIVE (Negative) Independent Interpretation I performed an independent interpretation of an: EKG and Plain X-Ray Interpretation: Chest x-ray clear without pneumonia or effusion EKG with normal sinus rhythm, ventricular 87 beats per minute, no ST segment elevations or depressions, normal QTC, normal ND interval, no change from January 2023 Radiology Impression Discussion of test interpretation with radiology: I have reviewed the radiologist's reading. Radiologist Impression: EXAMINATION: XR CHEST CLINICAL INFORMATION: Shortness of breath. COMPARISON: January 04, 2023. TECHNIQUE: Portable AP view of the chest was obtained. FINDINGS: The study is limited by portable technique. No acute infiltrate, effusion, pneumothorax is seen. The heart appears normal in size. The aorta is uncoiled, suggesting hypertension. Degenerative changes of the spine. XR/XR chest 1V IMPRESSION: No acute finding. External Record Review External record reviewed: Outpatient record, Prior outpatient labs and Prior outpatient radiology Prescription Management I considered prescription management with: Pain Medication Chronic Conditions Patient?s care impacted by: Hypertension Scores Heart Score History: -0- slightly suspicious ECG: -0- normal Age: -2- > or = 65 Risk factory: -1- 1 or 2 risk factors Troponin: -0- < or = normal limit Score: 3 Risk: 1.7% Critical Care Time Critical Care Time Critical Care Time: No Discharge Plan Discharge Clinical Impression: Atypical chest pain, Headache Patient Disposition: Home, Self-Care Instructions: Acute Headache (DC), Noncardiac Chest Pain (ED) Additional Instructions: Your workup today was unremarkable. Your EKG did not show any evidence of damage to your heart. Low suspicion that your pain is due to cardiac cause. You tested negative for COVID, flu, RSV. Take Tylenol or Motrin as needed for headache. Recommend following up with your doctor. If you develop new or worsening symptoms call 911 or come back to the ER for further evaluation. Prescriptions: No Action zolpidem 5 mg tablet 5 mg PO BEDTIME albuterol sulfate 90 mcg/actuation HFA aerosol inhaler 2 puff PO Q4-6H PRN atorvastatin 40 mg tablet PO hydroxyzine HCl 25 mg tablet 25 mg PO DAILY PRN bupropion HCl 100 mg tablet sustained-release 12 hr 200 mg PO DAILY escitalopram oxalate 10 mg tablet 10 mg PO DAILY buspirone 10 mg tablet 10 mg PO BID fluticasone propion-salmeterol [Advair HFA] 230-21 mcg/actuation HFA aerosol inhaler 2 puff inhalation BID bisacodyl [Dulcolax (bisacodyl)] 5 mg tablet,delayed release (DR/EC) 20 mg PO ONCE 1 Days Qty: 4 0RF Rx Instructions: take 4 tabs at noon the day before your colonoscopy polyethylene glycol 3350 [Miralax] 17 gram/dose powder 238 g PO ONCE Qty: 238 0RF Rx Instructions: As directed by gastroenterology department at [facility] fluoxetine 20 mg capsule 20 mg PO DAILY lorazepam 0.5 mg tablet 0.5 mg PO BID PRN montelukast 10 mg tablet 10 mg PO DAILY finasteride 5 mg tablet 5 mg PO DAILY 90 Days Qty: 90 1RF terazosin 10 mg capsule 10 mg PO BEDTIME 90 Days Qty: 90 3RF Interventions: ED Discharge Assessment Last Done: 11/16/23 16:52 Discharge Date/Time: 11/16/23 16:53 Print Language: Bruneian
[2023-11-16] MEDS: Magnesium Hydrox/Alum Hydrox 30 ML ORAL.SUSP PO (15:30)
[2023-11-16] MEDS: Famotidine 20 MG TABLET PO (15:30)
[2023-11-16] MEDS: Lidocaine HCl Viscous 2 % 15 ML SOLUTION MUCOUS MEM (15:30)
[2023-11-16 15:32] VITALS: BP 138/93; PULSE 81; RESP 16; O2SAT 97
[2023-11-16 15:34] LABS: MANUAL DIFF FLAG NO
--- NOTE | 2023-11-16 15:34 | PC.NURSE ---
Report taken from Lexy ALEX, assumed care of pt at this time. A&Ox3 skin pwd respirations even unlabored, NSR on cardiac sonographer. VSS. Endorsing upper abd pain radiating into chest, denies N/V/D. Also endorsing headache. Denies fever/chills. Medicated per SEP, labs drawn pending results.
[2023-11-16 15:44] LABS: Basophils Percent Auto 0.6 % (0-2); Eosinophils Absolute Auto 0.1 X10*3/uL (0.0-0.4); Eosinophils Percent Auto 1.6 % (0-4); Hemoglobin 14.5 g/dl (14.0-18.0); Imm Gran Abs Auto 0.01 X10*3/uL (0.00-0.03); Imm Gran Pct Auto 0.2 % (0.0-0.4); Lymphocytes Absolute Auto 0.8 X10*3/uL (1.2-4.9); Lymphocytes Percent Auto 15.9 % (20-40); Mean Corpuscular HGB Conc 33.7 g/dl (31.0-36.0); Mean Corpuscular Hemoglobin 29.1 pg (27.0-33.0); Mean Corpuscular Volume 86.3 fL (80.0-98.0); Mean Platelet Volume 9.8 fL (9.4-12.4); Monocytes Absolute Auto 0.3 X10*3/uL (0.1-1.2); Monocytes Percent Auto 6.8 % (2-11); Neutrophils Absolute Auto 3.6 x10*3/uL (2.0-8.3); Neutrophils Percent Auto 74.9 % (45-73); Platelet Count 187 X10*3/uL (160-400); Red Blood Count 4.98 X10*6/uL (4.60-5.80); Red Cell Distribution Width 12.2 % (11.0-16.0); White Blood Count 4.9 X10*3/uL (4.8-10.8)
[2023-11-16 15:54] LABS: Alanine Aminotransferase 20 U/L (0-40); Albumin Level 4.5 g/dL (3.5-5.0); Alkaline Phosphatase 54 U/L (39-117); Anion Gap 11 (12-20); Aspartate Amino Transferase 20 U/L (5-37); Bilirubin Direct 0.1 mg/dL (0.0-0.5); Bilirubin Total 0.4 mg/dL (0.0-1.0); Blood Urea Nitrogen 12 mg/dL (9-16); Calcium 9.9 mg/dL (8.4-10.2); Carbon Dioxide 31 mmol/L (22-29); Chloride 104 mmol/L (96-108); Creatinine Clr Calc Pharmacy 82.4; Estimated Glomerular Filt Rate > 60; Glucose Random 100 mg/dL (60-115); Potassium 4.4 mmol/L (3.3-5.1); Sodium 142 mmol/L (135-145); Total Protein 7.3 g/dL (6.5-8.0)
[2023-11-16 15:58] LABS: B Type Natriuretic Peptide < 10 pg/mL (<100); Troponin-I High Sensitivity 4.1 ng/L (<3.5-35.0)
[2023-11-16 16:18] LABS: Influenza A PCR NEGATIVE (Negative); Influenza B PCR NEGATIVE (Negative); Resp Syncy Virus RNA Qual PCR NEGATIVE (Negative); SARS COV2 PCR INHOUSE NEGATIVE (Negative)
[2023-11-16] MEDS: Acetaminophen 325 MG TABLET 975 MG PO (16:48)
[2023-11-16 16:52] VITALS: BP 138/93; PULSE 81; RESP 16; TEMP 37.2; O2SAT 97
== END 2023-11-16 16:53 | disposition home or self-care (01) ==
PROVIDERS: Physician Assistant; Emergency Provider Emergency Medicine; PCP Internal Medicine
DX: R07.89 Other chest pain (principal); R51.9 Headache, unspecified; R42 Dizziness and giddiness; R06.02 Shortness of breath; F41.9 Anxiety disorder, unspecified; I10 Essential (primary) hypertension; J45.909 Unspecified asthma, uncomplicated; I73.9 Peripheral vascular disease, unspecified; Z79.899 Other long term (current) drug therapy; Z03.818 Encounter for observation for suspected exposure to other biological agents ruled out
CPT/HCPCS: 0241U; 36415; 71045; 80048; 80076; 83735; 83880; 84484; 85025; 93005; 99283; 99285

== ENCOUNTER → 2023-11-16 14:32 | Outpatient (BNV) | payer OTHER, SELFPAY | PROVIDERS: Emergency Provider Emergency Medicine; PCP Internal Medicine; Visit Provider Internal Medicine Cardiovascular Disease | DX: R07.9 Chest pain, unspecified (principal) | CPT/HCPCS: 93010 ==

== ENCOUNTER 2024-01-19 08:28 | Emergency (ER) | payer OTHER, SELFPAY ==
[2024-01-19 08:32] VITALS: BP 128/47; PULSE 85; RESP 18; TEMP 36.6; O2SAT 95; BMI 24.5
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
[2024-01-19 09:49] VITALS: BP 145/97; PULSE 82; RESP 16; TEMP 36.2; O2SAT 95
== END 2024-01-19 09:49 | disposition home or self-care (01) ==
PROVIDERS: Emergency Provider Emergency Medicine; PCP Internal Medicine
DX: Z04.1 Encounter for examination and observation following transport accident (principal); M25.521 Pain in right elbow
CPT/HCPCS: 99282

== ENCOUNTER 2024-02-10 09:22 | Outpatient (AMB) | payer OTHER, SELFPAY ==
[2024-02-10 09:23] VITALS: BP 126/70; PULSE 81; BMI 24.7
--- NOTE | 2024-02-10 09:23 | MHC.OFFVIS ---
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 Director Cardiac Required: Yes Director Cardiac Name: Hawa [id number]/ted/nepali Accompanied by: Self / Same As Patient Allergies oxycodone [From PERCOCET] Allergy (Unknown, Verified 01/19/24 08:35) HIVES Medication List - Last Reconciled 02/10/24 by Ralph Lyman MD albuterol sulfate 90 mcg/actuation 2 puffs PO Q4-6H PRN amlodipine 2.5 mg PO DAILY atorvastatin mg PO bisacodyl (Dulcolax (bisacodyl)) 20 mg (4 x 5 mg) PO ONCE 1 day bupropion HCl SR 200 mg PO DAILY buspirone 10 mg PO BID escitalopram oxalate 10 mg PO DAILY finasteride 5 mg PO DAILY 90 days fluoxetine 20 mg PO DAILY fluticasone propion-salmeterol 230-21 mcg/actuation (Advair HFA) 2 puffs inhalation BID hydroxyzine HCl 25 mg PO DAILY PRN lorazepam 0.5 mg PO BID PRN montelukast 10 mg PO DAILY polyethylene glycol 3350 (Miralax) 238 grams PO ONCE terazosin 10 mg PO BEDTIME 90 days zolpidem 5 mg PO BEDTIME HPI Comments Details: Jayesh has been referred for evaluation of chest pain. In fact he was seen by Dr. Abraham last year for the same reason. At that time, it seems that he was evaluated with echocardiogram and stress test. Patient states that he has been fine till a couple months ago. He has again noticing some chest discomfort and shortness of breath. Mainly gets that with activities like walking. Otherwise, patient describes the cardiac catheterization type procedure many years ago which was apparently done in [place] but he can not give me any further details. Otherwise, history of smoking as well as substance abuse several years ago but nothing recently. [facility] Medical History (Updated 02/10/24 @ 09:41 by Ralph Lyman MD) Vitamin D deficiency Hematuria PVD (peripheral vascular disease) Esophageal dysphagia BPH loc w urin obs/LUTS Asthma HTN (hypertension) Surgical History Hx of colonoscopy History of surgery Hx of prostatectomy Family History (Updated 02/10/24 @ 09:41 by Ralph Lyman MD) Father No problems noted. Mother No problems noted. Social History Alcohol intake: former Patient Tobacco Use Status: Former Tobacco user Review of Systems Const Denies chills, Denies daytime sleepiness, Denies fatigue, Denies fever(s), Denies poor appetite, Denies snoring, Denies stops breathing during sleep, Denies weakness, Denies weight gain and Denies weight loss Eyes Denies loss of vision ENT Denies dizziness and Denies hearing loss Card Denies chest pain, Reports chest pain with activity, Denies irregular heart rhythm, Denies claudication, Denies leg edema, Denies lightheadedness, Denies palpitations, Reports dyspnea, Denies dyspnea on exertion and Denies orthopnea Resp Denies cough, Denies excessive phlegm production, Reports dyspnea, Denies dyspnea on exertion, Denies snoring and Denies wheezing GI Denies abdominal pain, Denies hematochezia, Denies change in bowel habits, Denies nausea and Denies vomiting Denies dysuria and Denies urinary frequency Musc Denies arthralgias, Denies muscle weakness, Denies numbness and Denies other Skin/Breast Denies nail changes and Denies rash Neuro Denies Abnormal speech present, Denies dizziness, Denies loss of vision, Denies memory loss, Denies numbness and Denies weakness Psych Denies depression and Denies memory loss Endo Denies fatigue and Denies palpitations Amari/Lymph Denies easy bruising Aller/Immun Denies wheezing Physical Exam Vital Signs: Last Vital Signs Pulse 81 02/10/24 09:23 BP 126/70 02/10/24 09:23 BMI result Body Mass Index 24.7 Const General: comfortable and no acute distress Orientation/consciousness: patient oriented x3 HEENT Other: Unremarkable Head: Yes normal to inspection Neck Neck: Yes normal visual inspection Chest Chest palpation & inspection: normal inspection of the chest Resp Auscultation: clear to auscultation bilaterally Cardio Palpation: normal PMI Heart sounds: S1 normal heart sound present, S2 normal heart sound present, no gallops, no murmurs and no rubs GI Palpation (GI): Soft to palpation Back/Spine/Pelvis Other: unremarkable Skin General skin exam: no rashes or lesions noted Neuro General: patient oriented x3 Speech: No Abnormal speech present Extrem General: Yes normal to inspection Psych Mental Status: mental status grossly normal Assessment & Plan Assessment & Plan (1) Precordial chest pain: Code(s): R07.2 - Precordial pain Category: Medical (2) Shortness of breath: Code(s): R06.02 - Shortness of breath Category: Medical (3) HTN (hypertension): Code(s): I10 - Essential (primary) hypertension Category: Medical Plan In the baseline EKG underlying sinus rhythm at 87/Min; no significant ST-T changes and otherwise unremarkable. Normal NC and corrected QT. In the echocardiogram from last year, LVEF 55-60%. There was a question of inferolateral hypokinesis versus endocardial dropout but otherwise unremarkable. In the ETT, he was able to do only 4 minutes and had shortness of breath and stopped but no chest pain. No EKG evidence of ischemia. Due to his current symptoms, we will repeat the testing. Echocardiogram to be repeated for any wall motion abnormalities. We can repeat exercise stress test with perfusion imaging. If we can not adequately exercise, then can do pharmacological stress with Lexiscan. Follow-up after the above. Orders: Orders CA echo transthoracic complete Today R07.2 - Precordial pain CA stress test Today R07.2 - Precordial pain NM cardiolite stress test Today R07.2 - Precordial pain Coding Level of Care Code Est Pt Level 4 (93608) Diagnoses Precordial chest pain R07.2 Shortness of breath R06.02 HTN (hypertension) I10
== END 2024-02-10 09:58 | disposition home or self-care (01) ==
PROVIDERS: PCP Internal Medicine; Visit Provider Internal Medicine
DX: R07.2 Precordial pain (principal); R06.02 Shortness of breath; I10 Essential (primary) hypertension
CPT/HCPCS: 99214

== ENCOUNTER → 2024-02-10 09:22 | Outpatient (BNVA) | payer OTHER, SELFPAY | PROVIDERS: PCP Internal Medicine; Visit Provider Internal Medicine | DX: R07.2 Precordial pain (principal); R06.02 Shortness of breath; I10 Essential (primary) hypertension | CPT/HCPCS: 99212 ==

== ENCOUNTER 2024-03-23 10:41 | Outpatient (AMB) | payer OTHER, SELFPAY ==
[2024-03-23 10:44] VITALS: BP 104/60; PULSE 75; O2SAT 93; BMI 24.5
--- NOTE | 2024-03-23 10:44 | MHC.OFFVIS ---
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 Patient was seen in urgent care and treated with a course of unspecified antibiotics and prednisone with suboptimal response to initial treatment. He is also using Symbicort and albuterol MDI with reasonable baseline control of his underlying COPD symptoms. He denies having recent pulmonary function testing. He denies prior personal or family history of lung disease. [facility] Medical History (Updated 03/23/24 @ 11:21 by Dm Moraes MD) Vitamin D deficiency Hematuria PVD (peripheral vascular disease) Esophageal dysphagia BPH loc w urin obs/LUTS Asthma HTN (hypertension) Surgical History Hx of colonoscopy History of surgery Hx of prostatectomy Family History (Updated 02/10/24 @ 09:41 by Ralph Lyman MD) Father No problems noted. Mother No problems noted. Social History (Updated 03/23/24 @ 10:52 by Janelle Sanchez [facility]) Alcohol intake: former Patient Tobacco Use Status: Former Tobacco user Years Smoked: started in his 20's, quit 13 years ago Review of Systems Const Denies daytime sleepiness, Denies excessive sweating, Denies fatigue, Denies fever(s), Denies lethargy, Denies malaise, Denies night sweats, Denies snoring and Denies weight loss Eyes Denies blurry vision and Denies itchy eyes ENT Denies nasal congestion, Denies post nasal drip, Denies sinus pain, Denies sinus pressure and Denies other ( Thrush) Card Denies chest pain, Denies pedal edema, Denies dyspnea, Denies orthopnea and Denies paroxysmal nocturnal dyspnea Resp Reports cough, Denies hemoptysis, Reports excessive phlegm production, Denies dyspnea, Denies snoring and Denies wheezing GI Denies abdominal pain and Denies heartburn Musc Denies myalgias, Denies arthralgias and Denies joint swelling Skin/Breast Denies rash Neuro Denies memory loss and Denies seizure-like activity Psych Denies abnormal sleep pattern, Denies anxiety and Denies memory loss Endo Denies excessive sweating, Denies fatigue and Denies heat intolerance Amari/Lymph Denies easy bruising Aller/Immun Denies itchy eyes, Denies seasonal rhinorrhea and Denies wheezing Physical Exam Vital Signs: Last Vital Signs Pulse 75 03/23/24 10:44 BP 104/60 03/23/24 10:44 Pulse Ox 93 03/23/24 10:44 Oxygen Delivery Method Room Air 03/23/24 10:44 BMI result Body Mass Index 24.5 Const General: no acute distress and alert Nutritional Appearance: not obese Orientation/consciousness: Other orientation findings ( oriented) HEENT Head: Yes atraumatic Eyes General: appearance normal, both eyes and all related structures Sclerae: sclerae normal EOM: EOMs intact bilaterally Neck Neck: Yes supple Lymphatic: no lymphadenopathy noted Resp Effort & Inspection: normal respiratory effort and no use of accessory muscles Auscultation: clear to auscultation bilaterally Cardio Rate: regular rate Rhythm: regular rhythm Heart sounds: no gallops, no murmurs and no rubs Skin General skin exam: other ( warm) Extrem General: No clubbing, No cyanosis and No edema Assessment & Plan Assessment & Plan (1) COPD (chronic obstructive pulmonary disease): Code(s): J44.9 - Chronic obstructive pulmonary disease, unspecified Category: Medical Plan: Likely underlying COPD of unclear severity. Will obtain full PFT. Will treat bronchitic exacerbation with a course of Levaquin. Will continue current regimen of Symbicort and albuterol MDI. (2) Personal history of nicotine dependence: Code(s): Z87.891 - Personal history of nicotine dependence Category: Medical Plan: Will obtain lung cancer screening CT chest. Orders: Orders PFT pulmonary function test Today J44.9 - Chronic obstructive pulmonary disease, unspecified Medications: New levofloxacin 750 mg PO DAILY 7 tabs 0RF Coding Level of Care Code New Pt Level 4 (14537) Diagnoses COPD (chronic obstructive pulmonary disease) J44.9 Personal history of nicotine dependence Z87.899
== END 2024-03-23 11:13 | disposition home or self-care (01) ==
PROVIDERS: PCP Internal Medicine; Visit Provider Internal Medicine Pulmonary Disease
DX: J44.9 Chronic obstructive pulmonary disease, unspecified (principal); Z87.891 Personal history of nicotine dependence
CPT/HCPCS: 99204

== ENCOUNTER → 2024-03-23 10:41 | Outpatient (BNVA) | payer OTHER, SELFPAY | PROVIDERS: PCP Internal Medicine; Visit Provider Internal Medicine Pulmonary Disease | DX: J44.9 Chronic obstructive pulmonary disease, unspecified (principal); Z87.891 Personal history of nicotine dependence | CPT/HCPCS: 99202 ==

== ENCOUNTER 2024-04-28 09:48 | Outpatient (REF) | payer OTHER, SELFPAY ==
--- NOTE | 2024-04-28 09:49 | PFT_ITS ---
Flows: FEV1: 36 % of predicted at 0.96 L FVC: 81 % of predicted at 2.90 L FEV1/FVC: 33 % Bronchodilator response: Present Volumes: Total lung capacity: 90 % of predicted at 5.60 L Residual volume: 134 % of predicted at 3.10 L Slow vital capacity: 66 % of predicted at 2.50 L Expiratory reserve volume: 0 % of predicted at 0 L Diffusion capacity: Moderately decreased. Impression: Very severe obstructive ventilatory defect with positive bronchodilator response. Increased residual volume suggests air trapping. Decreased diffusion capacity suggests emphysema. MTDD
[2024-04-28 13:35] VITALS: PULSE 83; RESP 16; O2SAT 95
== END 2024-04-28 09:49 | disposition home or self-care (01) ==
LOC: HO.RESP 09:48
PROVIDERS: PCP Internal Medicine; Visit Provider Internal Medicine Pulmonary Disease
DX: J44.9 Chronic obstructive pulmonary disease, unspecified (principal)
CPT/HCPCS: 94010; 94640; 94727; 94729

== ENCOUNTER → 2024-04-28 09:49 | Outpatient (BNV) | payer OTHER, SELFPAY | PROVIDERS: PCP Internal Medicine; Visit Provider Internal Medicine Pulmonary Disease | DX: J44.9 Chronic obstructive pulmonary disease, unspecified (principal) | CPT/HCPCS: 94060; 94727; 94729 ==

== ENCOUNTER 2024-05-01 15:24 | Outpatient (REF) | payer OTHER, SELFPAY ==
[2024-05-01 16:13] LABS: MANUAL DIFF FLAG NO
[2024-05-01 16:18] LABS: Basophils Percent Auto 0.6 % (0-2); Eosinophils Absolute Auto 0.1 X10*3/uL (0.0-0.4); Eosinophils Percent Auto 2.1 % (0-4); Hematocrit 43.5 % (42.0-52.0); Hemoglobin 14.4 g/dl (14.0-18.0); Imm Gran Abs Auto 0.01 X10*3/uL (0.00-0.03); Imm Gran Pct Auto 0.2 % (0.0-0.4); Lymphocytes Absolute Auto 1.1 X10*3/uL (1.2-4.9); Lymphocytes Percent Auto 20.5 % (20-40); Mean Corpuscular HGB Conc 33.1 g/dl (31.0-36.0); Mean Corpuscular Hemoglobin 28.9 pg (27.0-33.0); Mean Corpuscular Volume 87.2 fL (80.0-98.0); Mean Platelet Volume 10.5 fL (9.4-12.4); Monocytes Absolute Auto 0.3 X10*3/uL (0.1-1.2); Monocytes Percent Auto 6.3 % (2-11); Neutrophils Absolute Auto 3.7 x10*3/uL (2.0-8.3); Neutrophils Percent Auto 70.3 % (45-73); Platelet Count 184 X10*3/uL (160-400); Red Blood Count 4.99 X10*6/uL (4.60-5.80); Red Cell Distribution Width 12.4 % (11.0-16.0); White Blood Count 5.2 X10*3/uL (4.8-10.8)
[2024-05-01 16:51] LABS: Alanine Aminotransferase 42 U/L (0-40); Albumin Level 4.7 g/dL (3.5-5.0); Alkaline Phosphatase 61 U/L (39-117); Anion Gap 11 (12-20); Aspartate Amino Transferase 34 U/L (5-37); Bilirubin Total 0.8 mg/dL (0.0-1.0); Blood Urea Nitrogen 18 mg/dL (9-16); C Reactive Protein 0.17 mg/dL (< or = 0.50); Calcium 10.1 mg/dL (8.4-10.2); Carbon Dioxide 30 mmol/L (22-29); Chloride 102 mmol/L (96-108); Estimated Glomerular Filt Rate > 60; Glucose Random 90 mg/dL (60-115); Potassium 4.4 mmol/L (3.3-5.1); Sodium 139 mmol/L (135-145); Total Protein 7.2 g/dL (6.5-8.0)
[2024-05-01 17:02] LABS: Erythrocyte Sedimentation Rate 4 MM/HR (0-15)
[2024-05-01 17:09] LABS: Prostate Specific Antigen Scr 11.87 ng/mL (<0.05-4.0)
== END 2024-05-01 15:25 | disposition home or self-care (01) ==
LOC: HO.HHCL 15:24
PROVIDERS: Visit Provider Nurse Practitioner Family
DX: R31.9 Hematuria, unspecified (principal); Z12.5 Encounter for screening for malignant neoplasm of prostate
CPT/HCPCS: 36415; 80053; 84153; 85025; 85652; 86140; 87086

== ENCOUNTER 2024-05-05 09:44 | Outpatient (AMB) | payer OTHER, SELFPAY ==
[2024-05-05 10:33] VITALS: BP 104/62; PULSE 90; O2SAT 95; BMI 24.4
--- NOTE | 2024-05-05 10:33 | A.OFFVIS_ITS ---
Vital Signs 05/05/24 10:33 Height 5 ft 6 in Weight 151 lb 0.266 oz BMI 24.4 BP 104/62 Blood Pressure Location Rt brachial Position Sitting Pulse 90 Pulse Source Doppler Pulse Oximetry (%) 95 Oxygen Delivery Method Room Air Intake Visit Reasons: MAGUIRE Personnel Scheduler Required: Yes Personnel Scheduler Name: Janelle Givens Kin Allergies oxycodone [From PERCOCET] Allergy (Unknown, Verified 05/05/24 10:39) HIVES HPI HPI MAGUIRE: Details: 73-year-old gentleman, former at least 30 pack-year smoker, quit 2010 now followed for severe COPD. Patient had his pulmonary function test that showed severe to very severe COPD. He has been using his Symbicort and albuterol MDI with suboptimal control of his symptoms. He denies acute exacerbations. [facility] Medical History (Updated 03/23/24 @ 11:21 by Dm Moraes MD) Vitamin D deficiency Hematuria PVD (peripheral vascular disease) Esophageal dysphagia BPH loc w urin obs/LUTS Asthma HTN (hypertension) Surgical History Hx of colonoscopy History of surgery Hx of prostatectomy Family History (Updated 02/10/24 @ 09:41 by Ralph Lyman MD) Father No problems noted. Mother No problems noted. Social History (Updated 03/23/24 @ 10:52 by Janelle Sanchez [facility]) Alcohol intake: former Patient Tobacco Use Status: Former Tobacco user Years Smoked: started in his 20's, quit 13 years ago Review of Systems Const Denies daytime sleepiness, Denies excessive sweating, Denies fatigue, Denies fever(s), Denies lethargy, Denies malaise, Denies night sweats, Denies snoring and Denies weight loss Eyes Denies blurry vision and Denies itchy eyes ENT Denies nasal congestion, Denies post nasal drip, Denies sinus pain, Denies sinus pressure and Denies other ( Thrush) Card Denies chest pain, Denies pedal edema, Denies dyspnea, Denies orthopnea and Denies paroxysmal nocturnal dyspnea Resp Denies cough, Denies hemoptysis, Denies excessive phlegm production, Denies dyspnea, Denies snoring and Denies wheezing GI Denies abdominal pain and Denies heartburn Musc Denies myalgias, Denies arthralgias and Denies joint swelling Skin/Breast Denies rash Neuro Denies memory loss and Denies seizure-like activity Psych Denies abnormal sleep pattern, Denies anxiety and Denies memory loss Endo Denies excessive sweating, Denies fatigue and Denies heat intolerance Amari/Lymph Denies easy bruising Aller/Immun Denies itchy eyes, Denies seasonal rhinorrhea and Denies wheezing Physical Exam Vital Signs: Last Vital Signs Pulse 90 05/05/24 10:33 BP 104/62 05/05/24 10:33 Pulse Ox 95 05/05/24 10:33 Oxygen Delivery Method Room Air 05/05/24 10:33 BMI result Body Mass Index 24.4 Const General: no acute distress and alert Nutritional Appearance: not obese Orientation/consciousness: Other orientation findings ( oriented) HEENT Head: Yes atraumatic Eyes General: appearance normal, both eyes and all related structures Sclerae: sclerae normal EOM: EOMs intact bilaterally Neck Neck: Yes supple Lymphatic: no lymphadenopathy noted Resp Effort & Inspection: normal respiratory effort and no use of accessory muscles Auscultation: clear to auscultation bilaterally Cardio Rate: regular rate Rhythm: regular rhythm Heart sounds: no gallops, no murmurs and no rubs Skin General skin exam: other ( warm) Extrem General: No clubbing, No cyanosis and No edema Assessment & Plan Assessment & Plan (1) COPD (chronic obstructive pulmonary disease): Code(s): J44.9 - Chronic obstructive pulmonary disease, unspecified Category: Medical Plan: Suboptimal control on Symbicort, will switch to BrezTri. Continue albuterol MDI. Add duo nebs. (2) Personal history of nicotine dependence: Code(s): Z87.891 - Personal history of nicotine dependence Category: Medical Plan: Lung cancer screening CT chest ordered. Orders: Orders CT lung screening Today Z87.891 - Personal history of nicotine dependence Medications: New ipratropium-albuterol 0.5 mg-3 mg(2.5 mg base)/3 mL 3 mL inhalation Q4-6H PRN 180 mL 6RF wheezing Coding Level of Care Code Est Pt Level 4 (23548) Diagnoses COPD (chronic obstructive pulmonary disease) J44.9 Personal history of nicotine dependence Z87.891
== END 2024-05-05 10:52 | disposition home or self-care (01) ==
LOC: HO.HPS 09:45
PROVIDERS: PCP Internal Medicine; Visit Provider Internal Medicine Pulmonary Disease
DX: J44.9 Chronic obstructive pulmonary disease, unspecified (principal); Z87.891 Personal history of nicotine dependence
CPT/HCPCS: 99214

== ENCOUNTER → 2024-05-05 09:44 | Outpatient (BNVA) | payer OTHER, SELFPAY | PROVIDERS: PCP Internal Medicine; Visit Provider Internal Medicine Pulmonary Disease | DX: J44.9 Chronic obstructive pulmonary disease, unspecified (principal); Z87.891 Personal history of nicotine dependence | CPT/HCPCS: 99212 ==

== ENCOUNTER 2024-05-08 07:45 | Outpatient (REF) | payer OTHER, SELFPAY ==
--- NOTE | ~2024-05-08 | US_ITS ---
EXAMINATION: US RETROPERITONEAL LIMITED (RENAL ONLY) CLINICAL INFORMATION: Gross hematuria. COMPARISON: 11/03/2023 ultrasound bladder, 01/04/2023 CT abdomen and pelvis, 03/26/2020 ultrasound renals. TECHNIQUE: Real-time ultrasound imaging of the kidneys. Limited visualization due to bowel gas. FINDINGS: RIGHT KIDNEY: 10.6 x 5.9 x 6.4 cm (SAG x AP x TRV). No hydronephrosis. 3 mm lower pole calculus. Renal cortical thickness is normal. Limited visualization. 1.7 cm medial right renal cyst with benign features. There is no indication for followup imaging. A 0.6 cm right renal echogenic lesion not well characterized in the upper pole, possibly an angiomyolipoma. LEFT KIDNEY: 10.4 x 4.9 x 5.9 cm (SAG x AP x TRV). No hydronephrosis. Renal cortical thickness is normal. Limited visualization. Multiple renal calculi measuring 3 mm mid pole, 2 mm mid pole and 3 mm lower pole. 1.0 cm lower pole cyst with benign features. There is no indication for followup imaging. US/US renal BI IMPRESSION: Bilateral nephrolithiasis. No hydronephrosis. 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 Electronically signed by: Germania Oliveira MD 05/08/2024 10:56 AM HARPAL
== END 2024-05-08 07:46 | disposition home or self-care (01) ==
LOC: HO.US 07:45
PROVIDERS: PCP Internal Medicine; Visit Provider Nurse Practitioner Family
DX: R31.0 Gross hematuria (principal)
CPT/HCPCS: 76775

== ENCOUNTER 2024-05-09 08:49 | Outpatient (AMB) | payer OTHER, SELFPAY ==
--- NOTE | 2024-05-09 09:41 | MHC.OFFVIS ---
Intake Visit Reasons: 1Y PVR/Urinalysis/PSA(set) Elevated Intake Note: Patient is present for PSA/Urinalysis/PVR Urology Med: Terazosin, Finasteride Antibiotic Allergy: None Blood Thinner: None Last PVR: 0ML Todays PVR: 35ml PSA- 05/01/24- 11.87 Renal Ultrasound- 05/08/2024 Last Cytology-(Gross Hematuria)- 05/2023- Negative Accompanied by: Self / Same As Patient Allergies oxycodone [From PERCOCET] Allergy (Unknown, Verified 05/09/24 10:00) HIVES HPI Comments Details: Jayesh is a pleasant male. He is a patient of Dr. Simmons. He is seen for the following urologic conditions - lower urinary tract symptoms - nephrolithiasis Estonian translation provided by qualified medical specialist PVR today 35 Negative blood on UA Episode of gross hematuria JONO 3+ soft PSA remains high Plan for prostate MRI since prior negative biopsy and persistent high PSA Office cystoscopy Lower urinary tract symptoms Here for follow-up visit for hematuria and lower urinary tract symptoms Current therapy terazosin 10 mg effective Prior therapy tamsulosin Prior procedures laser prostatectomy 2019 Cystoscopy 10/23 mild regrowth with high bladder lip - TURP defect, mild tightness PSA 05/27 11, 04/27 11.8 Prior negative biopsy Nephrolithiasis Prior stone Imaging - 02/23 CT scan 1 mm stone - 02/25 renal ultrasound left kidney small stone, bilateral cysts PFSH Medical History Vitamin D deficiency Hematuria PVD (peripheral vascular disease) Esophageal dysphagia BPH loc w urin obs/LUTS Asthma HTN (hypertension) Surgical History Hx of colonoscopy History of surgery Hx of prostatectomy Family History Father No problems noted. Mother No problems noted. Social History Alcohol intake: former Patient Tobacco Use Status: Former Tobacco user Years Smoked: started in his 20's, quit 13 years ago Review of Systems Const Denies chills and Denies fever(s) Card Reports no additional complaints and Denies syncope Resp Denies cough GI Denies abdominal pain and Denies heartburn Reports as per HPI and Denies change in libido Neuro Denies syncope Psych Denies change in libido Endo Denies change in libido Physical Exam Const General: cooperative, healthy appearing, comfortable and no acute distress Orientation/consciousness: patient oriented x3 HEENT Face and sinus: Yes normal facial exam Mouth: moist mucous membranes Neck Neck: Yes normal visual inspection, Yes full ROM and Yes trachea midline Chest Chest palpation & inspection: normal inspection of the chest Resp Effort & Inspection: normal respiratory effort, able to speak in complete sentences and no respiratory distress GI Inspection: Yes normal to inspection Back/Spine/Pelvis Cervical Spine: normal cervical lordosis Thoracic/Lumbar Spine: thoracic and lumbar spine normal to inspection Skin General skin exam: no rashes or lesions noted Neuro General: patient oriented x3, gait normal, tone normal and moves all extremities Extrem General: Yes normal to inspection and Yes capillary refill normal Office Procedures Post Void Residual Post Residual Void Post Void Residual (PVR): 35 [id number] Void Residual by ultrasound Results AMB Urinalysis, Automated UA Leukoctes 0 Jose Guadalupe/uL Last Edit by WILLI Griggs on 05/09/24 10:08 UA Nitrite Negative Last Edit by Janelle Joshi Juan M on 05/09/24 10:08 UA Urobilinogen 0.2 mg/dL Last Edit by Janelle Joshi Juan M on 05/09/24 10:08 UA Protein 15 mg/dL Last Edit by Janelle Joshi [facility] on 05/09/24 10:08 UA pH 5.5 Last Edit by Janelle Joshi Juan M on 05/09/24 10:08 UA Blood 0 Kirk/uL Last Edit by Janelle Joshi [facility] on 05/09/24 10:08 UA Specific Grundy 1.025 Last Edit by WILLI Griggs on 05/09/24 10:08 UA Ketone Negative Last Edit by WILLI Griggs on 05/09/24 10:08 UA Bilirubin 0 mg/dL Last Edit by BERTRAM Griggs on 05/09/24 10:08 UA Glucose 0 mg/dL Last Edit by Janelle Joshi [facility] on 05/09/24 10:08 Results Reviewed Results Reviewed: Laboratory Last Values Urine pH (Auto) 5.5 05/09/24 09:41 Specific Grundy (Auto) 1.025 05/09/24 09:41 Urine Protein (Auto) 15 mg/dL 05/09/24 09:41 Glucose (UA)(Auto) 0 mg/dL 05/09/24 09:41 Urine Ketones (Auto) Negative 05/09/24 09:41 Urine Blood (Auto) 0 Kirk/uL 05/09/24 09:41 Urine Nitrite (Auto) Negative 05/09/24 09:41 Urine Bilirubin (Auto) 0 mg/dL 05/09/24 09:41 Urine Urobilinogen (Auto) 0.2 mg/dL 05/09/24 09:41 Leukocyte Esterase (Auto) 0 Jose Guadalupe/uL 05/09/24 09:41 Assessment & Plan Assessment & Plan (1) Elevated PSA: Code(s): R97.20 - Elevated prostate specific antigen [PSA] Category: Medical (2) BPH w urinary obs/LUTS: Comment: Laser prostatectomy 2018 Code(s): N40.1 - Benign prostatic hyperplasia with lower urinary tract symptoms; N13.8 - Other obstructive and reflux uropathy Category: Medical (3) Gross hematuria: Code(s): R31.0 - Gross hematuria Category: Medical Plan Imaging, cystoscopy Orders: Orders AMB Urinalysis Automated Today Z13.9 - Encounter for screening, unspecified AMB Post Void Residual by ultrasound Today R33.9 - Retention of urine, unspecified MR Prostate wo/w con Today R97.20 - Elevated prostate specific antigen [PSA] Patient Instructions: Imaging studies, laboratory and physical exam results were discussed and reviewed in detail. No major barriers to patient understanding were identified. An opportunity to ask questions regarding the treatment plan was provided. All questions were answered. The patient expressed understanding and agreement with the above treatment plan. The patient is aware they should contact our office by phone for worsening of their current condition or the appearance of new urologic symptoms. Compliance is encouraged with any medications and followup testing that is ordered. It is a privilege to participate in the urologic care of your patient. If you have any questions or concerns regarding treatment for the above conditions, or other urologic issues, please do not hesitate to contact me. The office telephone contact is [phone]. This note is constructed using voice recognition software. While every effort has been made to ensure accuracy motorcycle subassembler errors may have been included. Yours sincerely, Dr Gilles Whitley MD, BE [facility] - Urology Providers of Expert, Compassionate Care for the Genitourinary System Coding Level of Care Code Est Pt Level 4 (94423) Diagnoses Elevated PSA R97.20 BPH w urinary obs/LUTS N40.1; N13.8 Gross hematuria R31.0 CPT Codes Post Residual Void - PVR CPT Code: [id number] Void Residual by ultrasound ([id number])
== END 2024-05-09 10:44 | disposition home or self-care (01) ==
LOC: HO.HUSH 08:49
PROVIDERS: PCP Internal Medicine; Visit Provider Urology
DX: R97.20 Elevated prostate specific antigen [PSA] (principal); N40.1 Benign prostatic hyperplasia with lower urinary tract symptoms; N13.8 Other obstructive and reflux uropathy; R31.0 Gross hematuria; Z13.9 Encounter for screening, unspecified
CPT/HCPCS: 99214

== ENCOUNTER → 2024-05-09 08:49 | Outpatient (BNVA) | payer OTHER, SELFPAY | PROVIDERS: PCP Internal Medicine; Visit Provider Urology | DX: N40.1 Benign prostatic hyperplasia with lower urinary tract symptoms (principal); N13.8 Other obstructive and reflux uropathy; R97.20 Elevated prostate specific antigen [PSA]; R31.0 Gross hematuria | CPT/HCPCS: 51798; 81003; 99212 ==

== ENCOUNTER 2024-05-29 08:34 | Outpatient (REF) | payer OTHER, SELFPAY ==
[2024-05-29] MEDS: gadobutroL 7.5 ML VIAL IVPUSH (09:57)
== END 2024-05-29 08:35 | disposition home or self-care (01) ==
LOC: HO.MRI 08:34
PROVIDERS: PCP Internal Medicine; Visit Provider Urology
DX: R97.20 Elevated prostate specific antigen [PSA] (principal)
CPT/HCPCS: 72197; A9585

== ENCOUNTER → 2024-05-30 10:06 | Outpatient (BNV) | payer OTHER, SELFPAY | PROVIDERS: PCP Internal Medicine; Visit Provider Urology | DX: R33.9 Retention of urine, unspecified (principal); R31.0 Gross hematuria; N40.1 Benign prostatic hyperplasia with lower urinary tract symptoms; N13.8 Other obstructive and reflux uropathy | CPT/HCPCS: 81003 ==

== ENCOUNTER 2024-05-30 16:22 | Outpatient (REF) | payer OTHER, SELFPAY | END 2024-05-30 16:23 | disposition home or self-care (01) | LOC: HO.LNP 16:22 | PROVIDERS: Visit Provider Urology | DX: N40.1 Benign prostatic hyperplasia with lower urinary tract symptoms (principal); N13.8 Other obstructive and reflux uropathy; R31.0 Gross hematuria; R33.9 Retention of urine, unspecified | CPT/HCPCS: 87086 ==

== ENCOUNTER 2024-06-09 09:48 | Outpatient (AMB) | payer OTHER, SELFPAY ==
--- NOTE | 2024-06-09 10:56 | A.OFFVIS_ITS ---
Intake Visit Reasons: cysto/MRI Intake Note: Patient is present for Cystoscopy/MRI Urology Medication:TERAZOSIN,BACTRIM Antibiotic Allergy:NONE Blood Thinner:NONE Lot:[id number] Exp:05/08/27 Supervisor Blood Required: No Allergies oxycodone [From PERCOCET] Allergy (Unknown, Verified 06/09/24 10:58) HIVES HPI Comments Details: Jayesh is a pleasant male. He is a patient of Dr. Simmons. He is seen for the following urologic conditions - lower urinary tract symptoms - nephrolithiasis Turkish translation provided by qualified medical insurance verifier Office cystoscopy. Evidence of prior TURP. Has inflammatory regrowth with neovascularity which is likely cause of gross hematuria Start finasteride in addition to terazosin JONO 3+ soft PSA remains high Plan for prostate MRI since prior negative biopsy and persistent high PSA Office cystoscopy Lower urinary tract symptoms Here for follow-up visit for hematuria and lower urinary tract symptoms Current therapy terazosin 10 mg effective Prior therapy tamsulosin Prior procedures laser prostatectomy 2018 Cystoscopy 10/23 mild regrowth with high bladder lip - TURP defect, mild tightness PSA 05/27 11, 04/27 11.8 Bladder US 11/25 75gm Prior negative biopsy Nephrolithiasis Prior stone Imaging - 02/23 CT scan 1 mm stone - 02/25 renal ultrasound left kidney small stone, bilateral cysts PFSH Medical History Vitamin D deficiency Hematuria PVD (peripheral vascular disease) Esophageal dysphagia BPH loc w urin obs/LUTS Asthma HTN (hypertension) Surgical History Hx of colonoscopy History of surgery Hx of prostatectomy Family History Father No problems noted. Mother No problems noted. Social History Alcohol intake: former Patient Tobacco Use Status: Former Tobacco user Years Smoked: started in his 20's, quit 13 years ago Review of Systems Const Denies chills and Denies fever(s) Card Reports no additional complaints and Denies syncope Resp Denies cough GI Denies abdominal pain and Denies heartburn Reports as per HPI and Denies change in libido Neuro Denies syncope Psych Denies change in libido Endo Denies change in libido Physical Exam Const General: cooperative, healthy appearing, comfortable and no acute distress Orientation/consciousness: patient oriented x3 HEENT Face and sinus: Yes normal facial exam Mouth: moist mucous membranes Neck Neck: Yes normal visual inspection, Yes full ROM and Yes trachea midline Chest Chest palpation & inspection: normal inspection of the chest Resp Effort & Inspection: normal respiratory effort, able to speak in complete sentences and no respiratory distress GI Inspection: Yes normal to inspection Back/Spine/Pelvis Cervical Spine: normal cervical lordosis Thoracic/Lumbar Spine: thoracic and lumbar spine normal to inspection Skin General skin exam: no rashes or lesions noted Neuro General: patient oriented x3, gait normal, tone normal and moves all extremities Extrem General: Yes normal to inspection and Yes capillary refill normal Office Procedures Cystoscopy Consent Discussed risk and benefit or proposed procedure with the patient. Information consent for procedure given to the patient. Discussed technical aspects, risks, benefits and alternatives in full. Addressed all of the patient's questions and concerns regarding the procedure. The patient demonstrated knowledge and understanding. They wish to proceed with this procedure. Preparation The patient was prepped in the usual manner. A perianesthesia nurse was present and in the room. Genitalia was prepped with betadine solution in a sterile manner. Lidocaine Jelly 2% was placed into the urethra and 16Fr flexible Olympus cystoscope was inserted into the meatus after adequate lubrication. Procedure Cystoscopy performed using a disposable Urovue digital 16 Luxembourgish cystoscope. Meatus uncircumcised Urethra anterior and posterior urethra normal Prostatic Urethra TURP defect Bladder examination with retroflexion of cystoscope Bladder Orifices normal shape and position Bladder Capacity normal Trabeculations grade 1 Cellule Formation - Diverticulum Formation - Mucosal Erythema - Bladder Tumor - [id number] DISPOSABLE SCOPE URO-G FLEXIBLE SCOPE Procedure code (CPT) selection complete Office Meds lidocaine HCl 2 % mucosal jelly in applicator Performing Provider: Gilles Whitley MD Performing Location[facility] [place] [facility] Administered by: Gilles Whitley MD on 06/09/24 12:26 Dose Route Admin Location Dispensed Lot Number Expiration Date [facility] Medical Staff Specialist 10 mL intra-urethral 10 mL Results AMB Urinalysis, Automated UA Leukoctes 0 Jose Guadalupe/uL Last Edit by NORBERTO William on 06/09/24 11:10 UA Nitrite Negative Last Edit by Sushila Hernandez CCM on 06/09/24 11:10 UA Urobilinogen 0.2 mg/dL Last Edit by NORBERTO William on 06/09/24 11:1 0 UA Protein 15 mg/dL Last Edit by NORBERTO William on 06/09/24 11:10 UA pH 5.5 Last Edit by Sushila Hernandez CCM on 06/09/24 11:10 UA Blood 0 Kirk/uL Last Edit by Sushila Hernandez CCM on 06/09/24 11:10 UA Specific [place] 1.025 Last Edit by Sushila Hernandez CCM on 06/09/24 11: 10 UA Ketone Negative Last Edit by Sushila Hernandez CCM on 06/09/24 11:10 UA Bilirubin 0 mg/dL Last Edit by NORBERTO William on 06/09/24 11:10 UA Glucose 0 mg/dL Last Edit by NORBERTO William on 06/09/24 11:10 Results Reviewed Results Reviewed: Laboratory Last Values Urine pH (Auto) 5.5 06/09/24 11:09 Specific [place] (Auto) 1.025 06/09/24 11:09 Urine Protein (Auto) 15 mg/dL 06/09/24 11:09 Glucose (UA)(Auto) 0 mg/dL 06/09/24 11:09 Urine Ketones (Auto) Negative 06/09/24 11:09 Urine Blood (Auto) 0 Kirk/uL 06/09/24 11:09 Urine Nitrite (Auto) Negative 06/09/24 11:09 Urine Bilirubin (Auto) 0 mg/dL 06/09/24 11:09 Urine Urobilinogen (Auto) 0.2 mg/dL 06/09/24 11:09 Leukocyte Esterase (Auto) 0 Jose Guadalupe/uL 06/09/24 11:09 Assessment & Plan Assessment & Plan (1) BPH w urinary obs/LUTS: Comment: Laser prostatectomy 2019 Code(s): N40.1 - Benign prostatic hyperplasia with lower urinary tract symptoms; N13.8 - Other obstructive and reflux uropathy Category: Medical (2) Nephrolithiasis: Code(s): N20.0 - Calculus of kidney Category: Medical Plan Restart finasteride Six-month follow-up repeat PSA Orders: Orders AMB Urinalysis Automated Today Z13.9 - Encounter for screening, unspecified AMB Cystoscopy Today N13.8 - Other obstructive and reflux uropathy, N40.1 - Benign prostatic hyperplasia with lower urinary tract symptoms Medications: Refilled finasteride 5 mg PO DAILY 90 days 90 tabs 1RF N13.8 - Other obstructive and reflux uropathy, N40.1 - Benign prostatic hyperplasia with lower urinary tract symptoms, R33.9 - Retention of urine, unspecified Patient Instructions: Imaging studies, laboratory and physical exam results were discussed and reviewed in detail. No major barriers to patient understanding were identified. An opportunity to ask questions regarding the treatment plan was provided. All questions were answered. The patient expressed understanding and agreement with the above treatment plan. The patient is aware they should contact our office by phone for worsening of their current condition or the appearance of new urologic symptoms. Compliance is encouraged with any medications and followup testing that is ordered. It is a privilege to participate in the urologic care of your patient. If you have any questions or concerns regarding treatment for the above conditions, or other urologic issues, please do not hesitate to contact me. The office telephone contact is [phone]. This note is constructed using voice recognition software. While every effort has been made to ensure accuracy molecular genetic pathologist errors may have been included. Yours sincerely, Dr Gilles Whitley MD, [facility] - Urology Providers of Expert, Compassionate Care for the Genitourinary System Coding Level of Care Code Est Pt Level 4 (63401) Diagnoses BPH w urinary obs/LUTS N40.1; N13.8 Nephrolithiasis N20.0 CPT Codes Cystoscopy - CPT: 08095-[id number] ([id number])
--- OUTSIDE RECORDS SUMMARY | 2024-06-14 07:10 | XMS_ITS | Data Portability ---
Author Organization [place] [employer] [facility], [place] - [facility] Address [address] [place] [phone] Care Team Providers Care Receiving Associate Name Role Phone [facility] Referring Provider Assessment Encounter Date Assessment Date Assessment LastModified by Organization Details LastModified Time 05/20/2022 05/20/2022 I have reviewed and agree with the Assessment and Plan as documented by the Insole Buffer. I provided real -time medical direction via phone for this encounter, and was available for additional phone based assistance as needed. Patient given the opportunity to ask questions. Not available 05/20/2022 13:49:00 Plan of Treatment Reminders Order Date Submit Date Provider Last Modified By Organization Details Last Modified Time Details Appointments None recorded. Lab urinalysis , dipstick 2021 [email or web address] 0 [facility], [address] [place] [address], [phone], 13:53:37 culture, urine 2021 [place] [facility], [address] [place] [address], [id number], 08:07:02 Referral None recorded. Procedures None recorded. Surgeries None recorded. Imaging None recorded. Medication Orders Levaquin 500 mg tablet 2021 [facility], [address] [place] [address], [id number], 14:01:24 Levaquin 500 mg tablet 2021 [email or web address] 0 Not available 13:53:37 Pyridium 100 mg tablet 2021 [facility], [address] [place] [address], [id number], 14:01:24 Patient TargetsNo targets recorded. Patient InstructionsNo instructions recorded. Reason for Referral None Reported. Results Created Date Observation Date Name Description Value Unit Range Abnormal Flag Note LastModifiedBy Organization Detail LastModifiedTime 05/20/20 22 05/21/2022 URINE CULTU RE specimen description CLEAN CATCH (URINE ) Not Available [facility] [address], [id number], 05/22/2022 08:06:59 05/20/20 22 05/21/2022 URINE CULTU RE special requests NONE Not Available [facility] [address], [id number], 05/22/2022 08:06:59 05/20/20 22 05/22/2022 URINE CULTU RE culture NO GROWTH Not Available [facility] [address], [id number], 05/22/2022 08:06:59 05/20/20 22 05/22/2022 URINE CULTU RE report status FINAL 2021 Not Available [facility] [address], [id number], 05/22/2022 08:06:59 05/20/20 22 05/20/2022 urina lysis , dipst ick Leukocytes trace Not Available [facility] [address] [place] [address], [phone], 05/20/2022 13:48:42 05/20/20 22 05/20/2022 urina lysis , dipst ick Nitrite negati ve Not Available [facility] [address] [place] [address], [phone], 05/20/2022 13:48:42 05/20/20 22 05/20/2022 urina lysis , dipst ick Urobilinogen neg Not Available [facility] [address] [place] [address], [phone], 05/20/2022 13:48:42 05/20/20 22 05/20/2022 urina lysis , dipst ick Protein trace Not Available [facility] - [facility] [address] [place] [address], [phone], 05/20/2022 13:48:42 05/20/20 22 05/20/2022 urina lysis , dipst ick pH 6 Not Available [facility] [address] [place] [address], [phone], 05/20/2022 13:48:42 05/20/20 22 05/20/2022 urina lysis , dipst ick Blood 50 rbc Not Available [facility] [address] [place] [address], [phone], 05/20/2022 13:48:42 05/20/20 22 05/20/2022 urina lysis , dipst ick Specific [place] 1.010 Not Available [facility] [address] [place] [address], [phone], 05/20/2022 13:48:42 05/20/20 22 05/20/2022 urina lysis , dipst ick Ketone neg Not Available [facility] - [facility] [address], [phone], 05/20/2022 13:48:42 05/20/20 22 05/20/2022 urina lysis , dipst ick Bilirubin neg Not Available [facility] - [facility] [address] [place] [address], [phone], 05/20/2022 13:48:42 05/20/20 22 05/20/2022 urina lysis , dipst ick Glucose neg Not Available [facility] - [facility] [address] [place] [address], [phone], 05/20/2022 13:48:42 05/20/20 22 05/20/2022 urina lysis , dipst ick Appearance sl cloudy Not Available [facility] [address] [place] [address], [phone], 05/20/2022 13:48:42 05/20/20 22 05/20/2022 urina lysis , dipst ick Color pink Not Available [facility] - [facility] [address] [place] [address], [place], [phone], 05/20/2022 13:48:42 Result Notes None recorded. Medical Equipment None Reported. Allergies Allergen ID Allergen Name Allergen Category Reaction Reaction Severity Criticality Documentation Date Start Date Code Code System Note Provider Name and Address Organization Details Recorded Time 1313 acetamino phen / oxycodone medicatio n Not available Not available Not available 05/20/2022 08711 3 RxNorm Michelle Sharif MD [address] [place] [address],[address], [place], [phone], [facility] [employer] 2 13:46:59 8126 acetamino phen medicatio n Not available Not available Not available 05/02/2024 161 RxNorm Not Available [facility] - production 4 03:42:09 Medications Name Sig Start Date Stop Date Status Note LastModified by Organization Details LastModified Time buspirone 5 mg tablet TAKE 1 TABLET BY MOUTH TWICE DAILY DIRECTED FOR ANXIETY active Not Available Not Available Not Available cefuroxime axetil 250 mg tablet TAKE 1 TABLET BY MOUTH TWICE DAILY FOR 7 DAYS active Not Available Not Available No t Available simethicone 180 mg capsule TAKE 1 CAPSULE BY MOUTH THREE TIMES DAILY WITH MEALS active Not Available Not Available N ot Available Pyridium 100 mg tablet Take 1 tablet 3 times a day by oral route as needed. 2021 active Not Available Not Available Not Avai lable ciprofloxaci n 250 mg tablet TAKE 1 TABLET BY MOUTH EVERY TWELVE HOURS UNTIL FINISHED active Not Available Not Available No t Available omeprazole 40 mg capsule,tomy yed release TAKE 1 CAPSULE BY MOUTH EVERY DAY BEFORE A MEAL active Not Available Not Available No t Available Deep Sea Nasal 0.65 % spray aerosol USE 1-2 SPRAYS IN EACH NOSTRIL EVERY 2 TO 3 HOURS NEEDED FOR NASAL CONGESTION active Not Available Not Available N ot Available cephalexin 500 mg capsule TAKE 1 CAPSULE BY MOUTH EVERY 6 HOURS FOR 7 DAYS FOR UTI active Not Available Not Available No t Available buspirone 10 mg tablet TAKE 1 TABLET BY MOUTH TWICE DAILY FOR ANXIETY active Not Available Not Available No t Available zolpidem 5 mg tablet TAKE 1 TABLET BY MOUTH AT BEDTIME active Not Available Not Available No t Available mirtazapine 15 mg tablet TAKE 1 TABLET BY MOUTH EVERY DAY BEFORE BEDTIME active Not Available Not Available No t Available ergocalcifer ol (vitamin D2) 1,250 mcg (50,000 unit) capsule TAKE 1 CAPSULE BY MOUTH ONCE A WEEK active Not Available Not Available No t Available ibuprofen 600 mg tablet TAKE 1 TABLET BY MOUTH THREE TIMES DAILY WITH FOOD active Not Available Not Available No t Available levofloxacin 500 mg tablet TAKE 1 TABLET BY MOUTH EVERY DAY FOR 7 DAYS active Not Available Not Available No t Available ondansetron 4 mg disintegrati ng tablet DISSOLVE 1 TABLET ENCIMA DE LENGUA ONCE DAILY NEEDED FOR NAUSEA AND VOMITING active Not Available Not Available No t Available terazosin 10 mg capsule TAKE 1 CAPSULE BY MOUTH AT BEDTIME active Not Available Not Available No t Available Ventolin HFA 90 mcg/actuatio n aerosol inhaler INHALE 2 PUFFS BY MOUTH EVERY 4 TO 6 HOURS NEEDED active Not Available Not Available No t Available escitalopram 10 mg tablet TAKE 1 TABLET BY MOUTH EVERY DAY DIRECTED active Not Available Not Available No t Available escitalopram 5 mg tablet TAKE 1 TABLET BY MOUTH ONCE DAILY DIRECTED active Not Available Not Available No t Available [facility] 10 billion cell-200 mg sprinkle capsule TAKE 1 CAPSULE BY MOUTH THREE TIMES DAILY active Not Available Not Available Not Available Flovent Diskus 100 mcg/actuatio n powder for inhalation INHALE 1 PUFF BY MOUTH TWICE DAILY. RINSE MOUTH AFTER USING. active Not Available Not Available No t Available tranexamic acid 650 mg tablet TAKE 2 TABLETS BY MOUTH THREE TIMES DAILY FOR 3 DAYS active Not Available Not Available N ot Available Paxlovid 300 mg (150 mg x 2)-100 mg tablets in a dose pack TAKE 2 TABLETS (300 MG) OF NIRMATRELVI R & 1 TABLET (100 MG) OF RITONAVIR BY MOUTH TWICE DAILY FOR 5 DAYS active Not Available Not Available N ot Available Vitals Date Recorded Body temperature Body weight Heart rate Oxygen saturation Oxygen saturation in Arterial blood by Pulse oximetry Respiratory rate Body height Body temperature Oxygen saturation Oxygen saturation in Arterial blood by Pulse oximetry Respiratory rate Heart rate Body height Body weight Systolic blood pressure Diastolic blood pressure Systolic blood pressure Diastolic blood pressure Provider Name and Address Organization Details Last Updated DateTime 2 98.3 [degF] 18514.5 36 g 67 /min 96 % 96 % 18 /min 167.64 cm 98.3 [degF] 96 % 96 % 18 /min 67 /min 167.64 cm 23337.5 36 g 123 mm[Hg] 85 mm[Hg] 123 mm[Hg] 85 mm[Hg] Not Available [facility] - production 2 14:28:58 Social History None recorded. Functional Status None recorded. Mental Status None recorded. Family History Nothing Reported. Medical History No medical history recorded. Past Encounters Encounter ID Performer Location Encounter Start Date Encounter Closed Date Diagnosis/Indication Diagnosis SNOMED-CT Code Diagnosis ICD10 Code [id number] Michelle Sharif MD [facility] - [facility] [address] [place] [phone] 05/20/2022 13:39:36 05/22/2022 12:40:50 Acute urinary tract infection 535401014 N39.0 Health Concerns Section Related Observation LastModified by Organization Detai ls LastModified Time None Recorded Concern Status LastModified by Organization Details LastModified Time None Recorded Advance Directives Directive None Recorded Payers Encounter Date Sequence Insurance Name Policy Number Policy Riojas Covered Member ID Riojas Member ID Guarantor Name 05/20/[address] [facility] - DOS PRIOR TO 2022 - DUAL ELIGIBLE (MEDICARE REPLACEMENT/ADV ANTAGE - HMO) Jayesh Che [id number] Jayesh Che Notes Date Note Type Note Provider Name and Address Organization Details Recorded Time 05/20/2022 text/html HPI: 72 year old, Turkmen speaking male, reporting dysuria with penile pain x 2-3 days, stated foul odor in urine and would like U/A and culture done, stated unable to see his PCP due to provider leaving clinic, seen in the ER for UTI in 02/2022. Saw Uro for BPH. Denied fevers, chills, or cough. 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 .................... .................... .................... .................... .................... .................... . CRC Nursing Assessment: Comments: No further information needed to process visit SEGMD: Pt interviewed w/ supervisor data processing- only has penile pain inside when he [...] not remember- stated was 1 white pill 500 mg per day x 14 days................ .................... .................... .................... .................... .................... .................... ...... Insole Buffer Note: Sent to a call for a pt complaining of dysuria and penile pain x 2-3 days. SC8 arrives on scene, pt is alert and oriented. Airway is patent. 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 Pt complains of dysuria, malodorous urine, hematuria, and increased frequency/urgency to urinate. Pt denies headache, dizziness, cp, sob, n/v/d, abd pain, back pain, fever, loc, or history of kidney problems/kidney stones. Pt has a history of UTIs and BPH. Pt's last Urologist visit was approx 2 months ago. BP:123/85, P:67, RR:18, SpO2:96% RA, T:98.3; Lung sounds: clear bilaterally; Abdomen: soft, non-tender, no distention; Back: no CVA tenderness; Skin: pink, warm, dry; Pt states he has been eating normally, and increased oral hydration. Urine sample obtained: pink tinged, clear, concentrated; Urine dip: results uploaded to [employer] [facility] [place] Levofloxacin 500mg PO and urine culture to be sent to [facility]. Pt advised to take Tylenol 500mg q 6hrs prn, increase oral hydration, and follow up with urologist. Levofloxacin administered without incident. [facility] [place] script to pt's pharmacy for Levofloxacin and Pyridium. Red flags discussed. Pt has no further questions. .................... .................... .................... .................... .................... .................... .................... . Disposition: Fulfilled Michelle Sharif MD [address] [facility],[address], [place], [phone], [facility] [employer] 05/20/2022 14:33:50
== END 2024-06-09 12:28 | disposition home or self-care (01) ==
PROVIDERS: PCP Internal Medicine; Visit Provider Urology
DX: N40.1 Benign prostatic hyperplasia with lower urinary tract symptoms (principal); N13.8 Other obstructive and reflux uropathy; N20.0 Calculus of kidney; Z13.9 Encounter for screening, unspecified
CPT/HCPCS: 52000; 99214

== ENCOUNTER → 2024-06-09 09:48 | Outpatient (BNVA) | payer OTHER, SELFPAY | PROVIDERS: PCP Internal Medicine; Visit Provider Urology | DX: N40.1 Benign prostatic hyperplasia with lower urinary tract symptoms (principal); N28.1 Cyst of kidney, acquired; N13.8 Other obstructive and reflux uropathy; N20.0 Calculus of kidney | CPT/HCPCS: 52000; 81003; 99212 ==

== ENCOUNTER 2024-06-22 07:41 | Outpatient (REF) | payer OTHER, SELFPAY ==
--- OUTSIDE RECORDS SUMMARY | 2024-06-22 07:43 | XMS_ITS | Data Portability ---
Author Organization [facility], [place] in - [facility] Address [address] [place] [phone] Care Team Providers Care Wireline Operator Name Role Phone [facility] Referring Provider [phone] Assessment Encounter Date Assessment Date Assessment LastModified by Organization Details LastModified Time 05/20/2022 05/20/2022 I have reviewed and agree with the Assessment and Plan as documented by the Gerontology Aide. I provided real -time medical direction via phone for this encounter, and was available for additional phone based assistance as needed. Patient given the opportunity to ask questions. [email or web address] Not available 05/20/2022 13:49:00 Plan of Treatment Reminders Order Date Submit Date Provider Last Modified By Organization Details Last Modified Time Details Appointments None recorded. Lab urinalysis , dipstick 2021 [email or web address] 0 [facility], [address] [place] [address], [id number], 13:53:37 culture, urine 2021 [place] [facility], [address] [place] [address], [id number], 08:07:02 Referral None recorded. Procedures None recorded. Surgeries None recorded. Imaging None recorded. Medication Orders Levaquin 500 mg tablet 2021 [facility], [address] [place] [address], [id number], 14:01:24 Levaquin 500 mg tablet 2021 [email or web address] 0 Not available 13:53:37 Pyridium 100 mg tablet 2021 [facility], [address] [place] [address], [id number], 14:01:24 Patient TargetsNo targets recorded. Patient InstructionsNo instructions recorded. Reason for Referral None Reported. Results Created Date Observation Date Name Description Value Unit Range Abnormal Flag Note LastModifiedBy Organization Detail LastModifiedTime 05/20/20 22 05/21/2022 URINE CULTU RE specimen description CLEAN CATCH (URINE ) Not Available [facility] [address], [id number], 05/22/2022 08:06:59 05/20/20 22 05/21/2022 URINE CULTU RE special requests NONE Not Available [facility] [address], [id number], 05/22/2022 08:06:59 05/20/20 22 05/22/2022 URINE CULTU RE culture NO GROWTH Not Available [facility] [address], [id number], 05/22/2022 08:06:59 05/20/20 22 05/22/2022 URINE CULTU RE report status FINAL 2021 Not Available [facility] [address], [id number], 05/22/2022 08:06:59 05/20/20 22 05/20/2022 urina lysis , dipst ick Leukocytes trace Not Available [facility] [address] [place] [address], [phone], 05/20/2022 13:48:42 05/20/20 22 05/20/2022 urina lysis , dipst ick Nitrite negati ve Not Available [facility] [address] [place] [address], [phone], 05/20/2022 13:48:42 05/20/20 22 05/20/2022 urina lysis , dipst ick Urobilinogen neg Not Available [facility] [address] [place] [address], [phone], 05/20/2022 13:48:42 05/20/20 22 05/20/2022 urina lysis , dipst ick Protein trace Not Available [facility] [address] [place] [address], [phone], 05/20/2022 13:48:42 05/20/20 22 05/20/2022 urina lysis , dipst ick pH 6 Not Available [facility] [address] [place] [address], [phone], 05/20/2022 13:48:42 05/20/20 22 05/20/2022 urina lysis , dipst ick Blood 50 rbc Not Available [facility] [address] [place] [address], [phone], 05/20/2022 13:48:42 05/20/20 22 05/20/2022 urina lysis , dipst ick Specific [place] 1.010 Not Available [facility] [address] [place] [address], [phone], 05/20/2022 13:48:42 05/20/20 22 05/20/2022 urina lysis , dipst ick Ketone neg Not Available [facility] [address], [phone], 05/20/2022 13:48:42 05/20/20 22 05/20/2022 urina lysis , dipst ick Bilirubin neg Not Available [facility] [address] [place] [address], [phone], 05/20/2022 13:48:42 05/20/20 22 05/20/2022 urina lysis , dipst ick Glucose neg Not Available [facility] [address] [place] [address], [phone], 05/20/2022 13:48:42 05/20/20 22 05/20/2022 urina lysis , dipst ick Appearance sl cloudy Not Available [facility] [address] [place] [address], [phone], 05/20/2022 13:48:42 05/20/20 22 05/20/2022 urina lysis , dipst ick Color pink Not Available [facility] [address] [place] [address], [place], [phone], 05/20/2022 13:48:42 Result Notes None recorded. Medical Equipment None Reported. Allergies Allergen ID Allergen Name Allergen Category Reaction Reaction Severity Criticality Documentation Date Start Date Code Code System Note Provider Name and Address Organization Details Recorded Time 1313 acetamino phen / oxycodone medicatio n Not available Not available Not available 05/20/2022 36515 3 RxNorm Michelle Sharif MD [address] [place] [address],[address], [place], [phone], [facility] [place] 2 13:46:59 8126 acetamino phen medicatio n [...] Not Available Not Available No t Available [facility] 10 billion cell-200 mg sprinkle [...] Details Last Updated DateTime 2 98.3 [degF] 74965.5 36 g 67 /min 96 % 96 % 18 /min 167.64 cm 98.3 [degF] 96 % 96 % 18 /min 67 /min 167.64 cm 25602.5 36 g 123 mm[Hg] 85 mm[Hg] 123 [...] [id number] Michelle Sharif MD [facility] - [facility] [address] [place] [phone] 05/20/2022 13:39:36 05/22/2022 12:40:50 Acute urinary tract infection 477549940 N39.0 Health Concerns Section Related Observation LastModified by Organization Detai ls LastModified Time None Recorded Concern Status LastModified by Organization Details LastModified Time None Recorded Advance Directives Directive None Recorded Payers Encounter Date Sequence Insurance Name Policy Number Policy Riojas Covered Member ID Riojas Member ID Guarantor Name 05/20/2022 1 [facility] - DOS PRIOR TO 2022 - DUAL ELIGIBLE (MEDICARE REPLACEMENT/ADV ANTAGE - HMO) Jayesh Che [id number] Jayesh Che Notes Date Note Type Note Provider Name and Address Organization Details Recorded Time 05/20/2022 text/html HPI: 72 year old, Nauruan speaking male, reporting dysuria with penile pain [...] to process visit SEGMD: Pt interviewed w/ science interpreter- only has penile pain inside when he [...] .................... .................... .................... .................... .................... .................... ...... Gerontology Aide Note: Sent to a call for a pt complaining of dysuria and penile pain x 2-3 days. SC8 arrives on scene, pt is alert and oriented. Airway is patent. Pt's primary language is Nauruan; park interpreter line used during visit. Pt complains of [...] clear, concentrated; Urine dip: results uploaded to [facility]. [facility] [place] 500mg PO and urine culture to be sent to [facility]. Pt advised to take Tylenol 500mg q 6hrs prn, increase oral hydration, and follow up with urologist. Levofloxacin administered without incident. [facility] [place] pt's pharmacy for Levofloxacin and Pyridium. Red flags discussed. Pt has no further questions. .................... .................... .................... .................... .................... .................... .................... . Disposition: Fulfilled Michelle Sharif MD [address] [facility],[address], [place], [address], [facility] [place] 05/20/2022 14:33:50
[2024-06-22 08:57] LABS: PSA,Total (Free>4and<10) 9.86 ng/mL (0.00-4.00)
[2024-06-23 11:13] LABS: Free Prostate Spec Ag 1.4 ng/mL; Percent Free Prostate Spec Ag NOT CALCULATED % (calc) (>25); Prostate Specific Ag Total 10.7 ng/mL (< OR = 4.0)
== END 2024-06-22 07:42 | disposition home or self-care (01) ==
LOC: HO.LAB 07:41
PROVIDERS: PCP Internal Medicine; Visit Provider Urology
DX: R97.20 Elevated prostate specific antigen [PSA] (principal); N20.0 Calculus of kidney; R33.9 Retention of urine, unspecified; N40.1 Benign prostatic hyperplasia with lower urinary tract symptoms; N13.8 Other obstructive and reflux uropathy; Z12.5 Encounter for screening for malignant neoplasm of prostate
CPT/HCPCS: 36415; 84153; 84154

== ENCOUNTER 2024-06-26 07:41 | Outpatient (REF) | payer OTHER, SELFPAY | END 2024-06-26 07:42 | disposition home or self-care (01) | LOC: HO.CT 07:41 | PROVIDERS: PCP Internal Medicine; Visit Provider Internal Medicine Pulmonary Disease | DX: Z12.2 Encounter for screening for malignant neoplasm of respiratory organs (principal); Z87.891 Personal history of nicotine dependence | CPT/HCPCS: 71271 ==

== ENCOUNTER → 2024-06-26 07:43 | Outpatient (BNV) | payer OTHER, SELFPAY | PROVIDERS: PCP Internal Medicine; Visit Provider Radiology Diagnostic Radiology | DX: Z87.891 Personal history of nicotine dependence (principal) | CPT/HCPCS: 71271 ==

== ENCOUNTER 2024-08-08 09:49 | Outpatient (AMB) | payer OTHER, SELFPAY ==
--- NOTE | 2024-08-08 10:17 | A.OFFVIS_ITS ---
Intake Visit Reasons: Prostate medication Intake Note: Patient is present for PROSTATE MEDICATION Urology Medication:TERAZOSIN,FINASTERIDE Antibiotic Allergy:NONE Blood Thinner:NONE Button Sewer Required: No Allergies oxycodone [From PERCOCET] Allergy (Unknown, Verified 08/08/24 10:18) HIVES HPI Comments Details: Jayesh is a pleasant male. He is a patient of Dr. Simmons. He is seen for the following urologic conditions - lower urinary tract symptoms - nephrolithiasis Kittitian translation provided by qualified medical billing associate PSA remains elevated MRI shows 2 lesions of interest. 82 cc. Right base lateral peripheral zone 1.7 cm PI-RADS 4. Left mid transition zone 3.9 cm PI-RADS 5 Recommend targeted biopsy Would like to proceed with prostate procedure redo laser Would also plan on targeted prostate biopsy at that time Office cystoscopy. Evidence of prior TURP. Has inflammatory regrowth with neovascularity which is likely cause of gross hematuria Start finasteride in addition to terazosin JONO 3+ soft PSA remains high Lower urinary tract symptoms Here for follow-up visit for hematuria and lower urinary tract symptoms Current therapy terazosin 10 mg effective Prior therapy tamsulosin Prior procedures laser prostatectomy 2019 Cystoscopy 10/23 mild regrowth with high bladder lip - TURP defect, mild tightness PSA 05/27 11, 04/27 11.8 Bladder US 11/25 75gm Prior negative biopsy Nephrolithiasis Prior stone Imaging - 02/23 CT scan 1 mm stone - 02/25 renal ultrasound left kidney small stone, bilateral cysts PFSH Medical History Vitamin D deficiency Hematuria PVD (peripheral vascular disease) Esophageal dysphagia BPH loc w urin obs/LUTS Asthma HTN (hypertension) Surgical History Hx of colonoscopy History of surgery Hx of prostatectomy Family History Father No problems noted. Mother No problems noted. Social History Alcohol intake: former Patient Tobacco Use Status: Former Tobacco user Years Smoked: started in his 20's, quit 13 years ago Review of Systems Const Denies chills and Denies fever(s) Card Reports no additional complaints and Denies syncope Resp Denies cough GI Denies abdominal pain and Denies heartburn Reports as per HPI and Denies change in libido Neuro Denies syncope Psych Denies change in libido Endo Denies change in libido Physical Exam Const General: cooperative, healthy appearing, comfortable and no acute distress Orientation/consciousness: patient oriented x3 HEENT Face and sinus: Yes normal facial exam Mouth: moist mucous membranes Neck Neck: Yes normal visual inspection, Yes full ROM and Yes trachea midline Chest Chest palpation & inspection: normal inspection of the chest Resp Effort & Inspection: normal respiratory effort, able to speak in complete sentences and no respiratory distress GI Inspection: Yes normal to inspection Back/Spine/Pelvis Cervical Spine: normal cervical lordosis Thoracic/Lumbar Spine: thoracic and lumbar spine normal to inspection Skin General skin exam: no rashes or lesions noted Neuro General: patient oriented x3, gait normal, tone normal and moves all extremities Extrem General: Yes normal to inspection and Yes capillary refill normal Results AMB Urinalysis, Automated UA Leukoctes 0 Jose Guadalupe/uL Last Edit by NORBERTO William on 08/08/24 10:24 UA Nitrite Negative Last Edit by NORBERTO William on 08/08/24 10:24 UA Urobilinogen 0.2 mg/dL Last Edit by NORBERTO William on 08/08/24 10:2 4 UA Protein 15 mg/dL Last Edit by NORBERTO William on 08/08/24 10:24 UA pH 6.0 Last Edit by NORBERTO William on 08/08/24 10:24 UA Blood 0 Kirk/uL Last Edit by NORBERTO William on 08/08/24 10:24 UA Specific [place] 1.020 Last Edit by NORBERTO William on 08/08/24 10: 24 UA Ketone Negative Last Edit by NORBERTO William on 08/08/24 10:24 UA Bilirubin 0 mg/dL Last Edit by NORBERTO William on 08/08/24 10:24 UA Glucose 0 mg/dL Last Edit by NORBERTO William on 08/08/24 10:24 Results Reviewed Results Reviewed: Laboratory Last Values Urine pH (Auto) 6.0 08/08/24 10:23 Specific [place] (Auto) 1.020 08/08/24 10:23 Urine Protein (Auto) 15 mg/dL 08/08/24 10:23 Glucose (UA)(Auto) 0 mg/dL 08/08/24 10:23 Urine Ketones (Auto) Negative 08/08/24 10:23 Urine Blood (Auto) 0 Kirk/uL 08/08/24 10:23 Urine Nitrite (Auto) Negative 08/08/24 10:23 Urine Bilirubin (Auto) 0 mg/dL 08/08/24 10:23 Urine Urobilinogen (Auto) 0.2 mg/dL 08/08/24 10:23 Leukocyte Esterase (Auto) 0 Jose Guadalupe/uL 08/08/24 10:23 Assessment & Plan Assessment & Plan (1) BPH w urinary obs/LUTS: Comment: Laser prostatectomy 2018 Code(s): N40.1 - Benign prostatic hyperplasia with lower urinary tract symptoms; N13.8 - Other obstructive and reflux uropathy Category: Medical (2) Elevated PSA: Code(s): R97.20 - Elevated prostate specific antigen [PSA] Category: Medical Plan Redo laser prostatectomy with prostate biopsy Risks, benefits and alternatives to therapy were discussed. These include but are not limited to infection, bleeding, damage to local organs and tissues, need for further interventions. Anesthetic risks regarding cardiac arrhythmia, blood clots, and potential mortality were discussed. The patient understands the typical recovery time and the outpatient nature of the procedure. After consideration of these risks the patient gives full informed consent and they wish to move ahead with the procedure. Orders: Orders AMB Urinalysis Automated Today Z13.9 - Encounter for screening, unspecified Patient Instructions: This note is constructed using voice recognition software. While every effort has been made to ensure accuracy supervisor record press errors may have been included. Imaging studies, laboratory and physical exam results were discussed and reviewed in detail. No major barriers to patient understanding were identified. An opportunity to ask questions regarding the treatment plan was provided. All questions were answered. The patient expressed understanding and agreement with the above treatment plan. The patient is aware they should contact our office by phone for worsening of their current condition or the appearance of new urologic symptoms. Compliance is encouraged with any medications and followup testing that is ordered. It is a privilege to participate in the urologic care of your patient. If you have any questions or concerns regarding treatment for the above conditions, or other urologic issues, please do not hesitate to contact me. The office telephone contact is [phone]. Sincerely, Dr Gilles Whitley MD, BE [facility] - Urology Compassionate Specialist Care for the Genitourinary System Coding Level of Care Code Est Pt Level 4 (93193) Diagnoses BPH w urinary obs/LUTS N40.1; N13.8 Elevated PSA R97.20
--- OUTSIDE RECORDS SUMMARY | 2024-08-08 10:26 | XMS_ITS | Clinical Summary ---
Author Organization [employer] Address [address] [facility] [address] [place] [address] Care Team Providers Care Performance Improvement Coordinator Name Role Phone Niki Ramos MD Primary Care Provide r Allergies Active Allergy Reactions Criticality Noted Date Comments Acetaminophen Unknown 10/26/2018 Acetaminophen-Codeine 05/27/2022 Oxycodone Unknown 10/26/2018 Medications * This document contains information received from the source organization and may not represent a complete record from that organization. aspirin 81 MG EC tablet Take 1 tablet by mouth at bed time. 12/30/19 19 Active Cold Sore Products (GNP Cold Sore Treatment) 0.13 % liquid apply twice a day as needed 08/29/19 19 Active escitalopram (Lexapro) 10 MG tablet 07/03/20 22 Active LORazepam (Ativan) 0.5 MG tabletIndications :Panic attack Take 1 tablet (0.5 mg) by mouth every 6 (six) hours if needed for anxiety for up to 2 doses. 2 tablet 01/13/20 23 Active zolpidem (Ambien) 5 MG tabletIndications :Other insomnia TAKE 1 TABLET BY MOUTH AT BEDTIME NEEDED for SLEEP 28 tablet 03/16/20 23 Active Nirmatrelvir&Daniel navir 300/100 (Paxlovid, 300/100,) 20 x 150 MG & 10 x 100MG tablet therapy pack Take 300 mg by mouth 2 times daily. Take 3 tablets 2x/day for 5 days 30 each 06/29/20 23 Active omeprazole (PriLOSEC) [address] capsule TAKE 1 CAPSULE BY MOUTH ONCE DAILY BEFORE MEALS 90 capsule 2 11/15/19 24 Active amLODIPine (Norvasc) 2.5 MG tabletIndications :Essential hypertension Take 2 tablets (5 mg) by mouth Once per day. 60 tablet 11 11/18/19 24 Active atorvastatin (Lipitor) 40 MG tabletIndications :Essential hypertension Take 1 tablet (40 mg) by mouth Once per day. 30 tablet 11 11/18/19 24 025 Active Blood Pressure Monitoring (Blood Pressure Cuff) miscIndications:E ssential hypertension 1 each Once daily. 1 each 11/18/19 24 Active hydroCHLOROthiazi de (HYDRODiuril) 12.5 MG tablet Take 1 tablet (12.5 mg) by mouth Once per day. 30 tablet 11 12/02/19 24 025 Active Spacer/Aero-Holdi ng Chambers (OptiChamber Lorraine) misc 1 each every 4 (four) hours if needed (asthma). 1 each 02/08/20 24 Active albuterol (Ventolin HFA) 108 (90 Base) MCG/ACT inhalerIndication s:Mild intermittent asthma, unspecified whether complicated INHALE 2 PUFFS BY MOUTH EVERY 4 TO 6 HOURS NEEDED FOR WHEEZING OR SHORTNESS OF BREATH 18 g 3 04/18/20 24 Active albuterol (2.5 MG/3ML) 0.083% nebulizer solutionIndicatio ns:Asthma in adult, mild intermittent, uncomplicated INHALE 1 AMPULE USING A NEBULIZER EVERY 4 HOURS NEEDED FOR WHEEZING 90 mL 3 05/23/20 24 Active EPINEPHrine (Epipen) 0.3 MG/0.3ML injection syringe INJECT INTRAMUSCULARLY DIRECTED ON PACKAGE AND GO TO EMERGENCY ROOM 2 each 1 05/30/20 24 Active montelukast (Singulair) 10 MG tabletIndications :Asthma in adult, mild intermittent, uncomplicated TAKE 1 TABLET BY MOUTH EVERY DAY AT BEDTIME 30 tablet 2 06/06/20 24 Active budesonide-formot uriel (Symbicort) 160-4.5 MCG/ACT inhalerIndication s:Asthma in adult, mild intermittent, uncomplicated INHALE 2 PUFFS BY MOUTH TWICE DAILY IN THE MORNING AND AT BEDTIME RINSE MOUTH AFTER USING. 10.2 g 2 06/06/20 24 Active busPIRone (Buspar) 10 MG tablet Take 10 mg by mouth 2 times daily. Active Breztri Aerosphere 160-9-4.8 MCG/ACT aerosol Inhale 2 puffs 2 times daily. 06/26/20 24 Active Fluticasone Propionate, Inhal, (Flovent Diskus) 100 MCG/ACT aerosol powder INHALE 1 PUFF BY MOUTH TWICE DAILY. RINSE MOUTH AFTER USING. 02/06/20 Active finasteride (Proscar) 5 MG tablet Take 1 tablet by mouth Once per day. 06/09/20 24 Active ipratropium-albut uriel (Duo-Neb) 0.5-2.5 mg/3 mL nebulizer solution Take 3 mL by nebulization in the morning, at noon, and at bedtime. 05/22/20 24 Active levoFLOXacin (Levaquin) 750 MG tablet Take 1 tablet by mouth Once per day. Active Active Problems Problem Noted Date Diagnosed Date Hematuria 05/01/2024 Assessment & Plan (05/02/2024 12:32 PM EDT): Pt with radha gross hematuria, no sig flank pain, no constitutional symptoms, Renal ultrasound ordered Urgent referral to urology , pt will outreach to urology as well as visit office tomorrow Culture pending, will treat if labs positive Blood work as ordered below Urgency or rapid work up reviewed with patient Blurry vision 10/04/2023 Colon cancer screening 07/12/2023 Pruritus 07/12/2023 Assessment & Plan (07/12/2023 12:27 PM EST): I will refer him to wax specialist Allergy 07/12/2023 Dyspnea on exertion 01/12/2023 Assessment & Plan (01/12/2023 3:14 PM EDT): Cardiology already has seen patient multiple times no cardiac etiology for his symptoms I will order today pulmonary function test and refer him to pulmonology to r/o any pulmonary issue EKG done today NSR Encounter for routine history and physical exam for male 09/25/2022 Assessment & Plan (09/25/2022 9:45 AM EDT): Concerns for today's visit: Occupation: retired Lives with: alone Social Hx: denies drinking EtOH, denies smoking cigarettes and denies recreational drug use. Sleep: Diet: regular Exercise: sedentary Colonoscopy: referral doen today Hospitalizations/Surgeries: Eye Care: referral done today Dental Care: recent revision Immunizations: Up to date declines, zoster vaccine Moderate asthma without complication 09/25/2022 Assessment & Plan (03/02/2024 11:57 AM EDT): Patient educated to avoid asthma triggers Continue Symbicort 160/4.5 BID (patient reports this is helping him a lot) C/w montelukast 10mg daily C/w albuterol PRN Assessment & Plan (10/04/2023 10:04 AM EDT): Well controlled c/w same regimen Assessment & Plan (07/12/2023 12:29 PM EST): Patient educated to avoid asthma triggers C/w albuterol inhaler Q 4-6hrs I discontinue asmanex and started him on advir Assessment & Plan (04/23/2023 9:57 AM EDT): Patient educated to avoid asthma trigger Medication adjustment done Assessment & Plan (01/06/2023 2:22 PM EDT): I will prescribe for patient a nebulizer machine it will be beneficial patient is also very anxious and I think this will avoid for hi to go to frequently to ED Assessment & Plan (09/25/2022 9:35 AM EDT): Patient uses albuterol PRN and is control I will refill albuterol Dizziness 09/25/2022 Assessment & Plan (09/25/2022 9:55 AM EDT): Patient is poor historian it could be vertigo I will refer patient to ENT for further investigation Chest pain, atypical 09/25/2022 Assessment & Plan (03/02/2024 11:58 AM EDT): Continue to follow with cardiology Assessment & Plan (09/25/2022 9:56 AM EDT): Patient is poor historian, reports chest pain comes without an specific trigger reports its sharp happens once or twice a month with palpitations? I will refer patient to cardiology Benign prostatic hyperplasia 09/24/2022 Bloating symptom 09/24/2022 Chronic gastritis 09/24/2022 Gastroesophageal reflux disease without esophagi tis 09/24/2022 Mixed anxiety and depressive disorder 09/24/2022 Assessment & Plan (09/25/2022 9:36 AM EDT): Patient reports he is fairly stable he continues to follow withth therapist and psychiatrist Panic attack 09/24/2022 Assessment & Plan (01/12/2023 3:12 PM EDT): Most likely what is happening today is another panic attack , EKG done today normal, patient has being having recurrent panic attack fo the past weeks, he has multiple visits to ED, ACS is always r/o, no physical reason for his symptoms Patient already has a psychiatrist and a therapist but feels medications are not working for him It is my medical opinion patient will benefit from RESPITE program so that he can be stabilized and more ED visits will be avoid Today I prescribed single dose of lorazepam Assessment & Plan (01/06/2023 2:20 PM EDT): Patient will follow with psychiatrist and therapist Visual impairment 09/24/2022 Aneurysm of right iliac artery 01/19/2020 Adenomyomatosis of gallbladder 01/19/2020 Dilatation of aorta 09/17/2017 Gallstone 09/17/2017 Kidney stone 09/17/2017 Essential hypertension 08/03/2017 Assessment & Plan (03/02/2024 11:57 AM EDT): Controlled c/w amlodipine 2.5mg daily Assessment & Plan (11/18/2023 2:44 PM EDT): -I will start him on amlodipine 2.5mg and atorvastatin 40mg daily, BP cuff also prescribed, I advise to log his BP and come back for nurse visit in 2 weeks if BP not at goal plan is to increase the dose - Aerobic exercise to reduce BP. Initial goal of 30 min walk 3-5x/week. Increase as tolerated. - low-sodium diet (goal: <2g/day) and heart healthy diet such as DASH to reduce BP and prevent ASCVD. - Home BP monitoring 1-2 x day with goal of <140/90. - Seek immediate medical attention for chest pain, palpitations, SOB, syncope, or sudden changes in mental status. - Do not change or discontinue current prescriptions without first consulting health care provider Assessment & Plan (10/04/2023 10:03 AM EDT): -not on medications for now - Aerobic exercise to reduce BP. Initial goal of 30 min walk 3-5x/week. Increase as tolerated. - low-sodium diet (goal: <2g/day) and heart healthy diet such as DASH to reduce BP and prevent ASCVD. - Home BP monitoring 1-2 x day with goal of <140/90. - Seek immediate medical attention for chest pain, palpitations, SOB, syncope, or sudden changes in mental status. Assessment & Plan (07/12/2023 12:31 PM EST): Patient not currently on medications I will continue to monitor I advise low Na diet Assessment & Plan (04/23/2023 9:56 AM EDT): - Aerobic exercise to reduce BP. Initial goal of 30 min walk 3-5x/week. Increase as tolerated. - low-sodium diet (goal: <2g/day) and heart healthy diet such as DASH to reduce BP and prevent ASCVD. - Home BP monitoring 1-2 x day with goal of <140/90. - Seek immediate medical attention for chest pain, palpitations, SOB, syncope, or sudden changes in mental status. - Do not change or discontinue current prescriptions without first consulting health care provider Assessment & Plan (01/12/2023 3:07 PM EDT): Blood pressure today is within normal range I will discontinue amlodipine and I ask patient to monitor BP at home and to do low Na diet Assessment & Plan (01/06/2023 2:20 PM EDT): - Aerobic exercise to reduce BP. Initial goal of 30 min walk 3-5x/week. Increase as tolerated. - low-sodium diet (goal: <2g/day) and heart healthy diet such as DASH to reduce BP and prevent ASCVD. - Home BP monitoring 1-2 x day with goal of <140/90. - Seek immediate medical attention for chest pain, palpitations, SOB, syncope, or sudden changes in mental status. -I discontinue hydrochlorothiazide and started him on amlodipine 2.5mg daily - Do not change or discontinue current prescriptions without first consulting health care provider Assessment & Plan (09/25/2022 10:07 AM EDT): Maintenance: BMP: ordered today Lipid Panel: ordered today ASCVD Risk: Calculate pending updated labs EKG: patient referred to cardiology BP 128/90 (BP Location: Left arm, Patient Position: Sitting, BP Cuff Size: Adult) Pulse 90 Temp 97.1 ??F (36.2 ??C) (Oral) Resp 12 Wt 154 lb (69.9 kg) SpO2 95% BMI 24.86 kg/m?? - Aerobic exercise to reduce BP. Initial goal of 30 min walk 3-5x/week. Increase as tolerated. - low-sodium diet (goal: <2g/day) and heart healthy diet such as DASH to reduce BP and prevent ASCVD. - Home BP monitoring 1-2 x day with goal of <140/90. - Seek immediate medical attention for chest pain, palpitations, SOB, syncope, or sudden changes in mental status. - patient is not on medications at this point I will continue to monitor BPH without urinary obstruction 07/07/2017 Mood disorder 07/07/2017 Onychomycosis 07/07/2017 Hypertriglyceridemia 09/08/2016 Vitamin D deficiency 09/08/2016 Generalized anxiety disorder 08/12/2016 Assessment & Plan (03/02/2024 11:58 AM EDT): Counseling done c/w therapist and psychiatrist Assessment & Plan (01/18/2023 1:42 PM EDT): Assessment: Patient with history of depression, substance abuse (sober for 8 years, used cocaine, crack and alcohol) and anxiety with panic attacks (anxiety every day, difficult to control worry, chest pressure, increased heart rate, and feeling like his throat is closing). Symptoms are in the context of bio-psychosocial stressors. Patient will benefit from continued OP therapy, psychiatry and [facility] respite. At this time Jayesh Che meets criteria for Visit Diagnoses: Problem List Items Addressed This Visit Other Generalized anxiety disorder Patient ready to address current needs Yes Strengths- Jayesh is engaged in OP therapy and psychiatry services and in the active stage for change. PLAN: 1. Follow up with [facility]: Not recommended for follow-up 2. Patient goal is to continue OP therapy and explore additional coping mechanisms. 3. Behavioral Recommendations a. OP therapy b. Coping mechanisms- deep breathing C. [facility] respite program Encounters Date Type Department Care Team Description 07/10/2024 10:00 AM EST Office Visit [facility] [address] [place] [address] Sundeep Felipe DMD 06/26/2024 Orders Only [facility] External Provider, [facility] 06/22/2024 Orders Only GENERIC EXTERNAL DATA DEPARTMENT Provider, Generic External Data 06/16/2024 2:30 PM EST Office Visit [facility] [address] [place] [address] Sundeep Felipe DMD 06/04/2024 Refill [facility] [address] [place] [phone] Estevan Piña MD Asthma in adult, mild intermittent, uncomplicated 06/04/2024 Refill [facility] [address] [place] [phone] Niki Ramos MD Asthma in adult, mild intermittent, uncomplicated 05/30/2024 Refill [facility] [address] [place] [phone] Niki Ramos MD 05/29/2024 Orders Only [facility] External Provider, [facility] 05/22/2024 Refill [facility] [address] [place] [phone] Gracia Garcia MD Asthma in adult, mild intermittent, uncomplicated 05/08/2024 10:30 AM EST Office Visit [facility] [address] [place] [address] Sundeep Felipe DMD 05/08/2024 Telephone [facility] [address] [place] [address], [place] [address] Shanon Edmondson, ISAI from Last 3 Months Immunizations Name Administration Dates Next Due Hep B, adult 06/05/2021,10/26/2017,09/17/2017 Influenza High-dose Quadriva lent Preservative Free 03/27/2022,04/29/2021 Influenza injectable quadriv alent preservative free 08/12/2016 Influenza, High Dose Seasona l, Preservative Free 04/26/2024,03/23/2019,03/28/2018 Moderna Covid-19 Vaccine 12+ 06/06/2021,11/08/19 21,10/10/2020 Pfizer Covid-19 Vaccine 12+ 04/26/2024 Pneumococcal Conjugate PCV 13 06/05/2021 Pneumococcal Polysaccharide PPSV23 08/12/2016 Tdap 08/12/2016 Zoster, live 08/12/2016 Social History Tobacco Use Types Packs/Day Years Used Date Smoking Tobacco: Former Cigarettes Passive Smoke Exposure: Past Smokeless Tobacco: Never Tobacco Cessation:Counseling Given: Not Answered Alcohol Use Standard Drinks/Week Comments Not Currently 0 (1 standard drink = 0.6 oz pur e alcohol) Depression Answer Date Recorded Patient Health Questionnaire-9 Score 0 10/04/2023 Patient Health Questionnaire-9 Score 0 10/04/2023 Last PHQ-9: Questionnaire Data Not on file 0 10/04/2023 Housing Stability Answer Date Recorded What is your housing situation today? I have liudmilaallen rios 04/22/[address] you li ve. Do you have problems with any of the following? None of the above 04/22/2023 Food Insecurity Answer Date Recorded Within the past 12 months, y ou worried that your food would run out before you got money to buy more: Never True 04/22/2023 Within the past 12 months,th e food you bought just didn't last and you didn't have enough money to get more: Never True Transportation Answer Date Recorded In the past 12 months, has l ack of transportation kept you from medical appts, meetings, work or from getting things needed for daily living? No 04/22/2023 Utilities Answer Date Recorded In the past 12 months, has t he electric, gas, oil or water company threatened to shut off services in your home? No 04/22/2023 Depression Answer Date Recorded Patient Health Questionnaire-2 Score 0 10/04/2023 Sex and Gender Information Value Date Recorded Sex Assigned at Male 05/04/2022 10:30 AM EDT Legal Sex Male 10:30 AM EDT Gender Identity Male 05/04/2022 10:30 AM EDT Sexual Orientation Straight 05/04/2022 10 :30 AM EDT Last Filed Vital Signs Vital Sign Reading Time Taken Comments Blood Pressure 124/80 05/08/2024 10:32 AM EST Pulse 68 05/08/2024 10:32 AM EST Temperature 36.6 ??C (97.8 ??F) 05/01/2024 2:42 PM ED T Respiratory Rate 16 05/01/2024 2:42 PM EDT Oxygen Saturation 96% 05/01/2024 2:42 PM EDT Inhaled Oxygen Concentration - - Weight 68.9 kg (152 lb) 05/01/2024 2:42 PM EDT Height 160 cm (5' 3 ) 03/02/2024 11:04 AM EDT Body Mass Index 26.93 03/02/2024 11:04 AM EDT Plan of Treatment Upcoming Encounters Date Type Department Care Team (Late st Contact Info) Description 08/24/2024 10:00 AM EST Office Visit [facility] [address] [place] [address] Sundeep Felipe, ROBERTO [address] [place] [address] Health Maintenance Due Date Last Done Comments CT Colonography 1950 Dental Oral Exam 1950 Dental Prophylaxis 1950 Dental X-Ray: Bitewings 1950 Dental X-Ray: Full Mouth 1950 FIT DNA/Cologuard 1950 FIT 1950 FOBT 1950 Sigmoidoscopy 1950 Alcohol/Substance Use Screening 1962 RSV Patients and Patients Aged 60 years or older (1 - Risk 60-74 years 1-dose series) 2010 Zoster Vaccines (2 of 3) 10/07/2016 08/12/2016 Colonoscopy 03/07/2023 03/07/2020 Colorectal Cancer Screening 03/07/2023 SDOH Screening 09/22/2024 09/23/2023 Depression Screening 10/03/2024 10/04/2023, 10/04/19 Tobacco Screening 07/10/2025 07/10/2024 DTaP/Tdap/Td Vaccines (2 - Td or Tdap) 08/12/2026 08/12/2016 Lipid Panel 10/03/2028 10/04/2023, 09/03, 04/10/2021 Hepatitis B Vaccines Completed 06/05/2021, 10/26/2017, 09/17/2017 Pneumococcal Vaccine: 50+ Years Completed 06/05/2021, 08/12/2016 Hepatitis C Screening Completed 09/29/2022 COVID-19 Vaccine Completed 04/26/2024, , 06/06/2021, Additional history exists Influenza Vaccine Completed 04/26/2024, , 04/29/2021, Additional history exists HIB Vaccines Aged Out No longer eligi ble based on patient's age to complete this topic HPV Vaccines Aged Out No longer eligi ble based on patient's age to complete this topic Hepatitis A Vaccines Aged Out No long er eligible based on patient's age to complete this topic IPV Vaccines Aged Out No longer eligi ble based on patient's age to complete this topic Meningococcal Vaccine Aged Out No latha phyllis eligible based on patient's age to complete this topic RSV under 20 months Aged Out No longe r eligible based on patient's age to complete this topic Rotavirus Vaccines Aged Out No longer eligible based on patient's age to complete this topic Procedures Procedure Name Priority Date/Time Associated Diagnosis Comments WAX TRY IN Routine 07/10/2024 10:00 AM EST LDCT LUNG SCREENING Routine 06/26/2024 8 :49 AM EST PSA, FREE AND TOTAL Routine 06/22/2024 8 :58 AM EST PSA, TOTAL WITH REFLEX TO PSA, FREE Routine 06/22/2024 7:57 AM EST BITE REGISTRATION Routine 06/16/2024 2:3 0 PM EST DENTURE IMPRESSION Routine 06/16/2024 2: 30 PM EST MR PROSTATE W AND WO CONTRAST Routine 05/29/2024 9:00 AM EST ADJUNCTIVE GENERAL SERVICES - PROFESSIONAL VISITS - CASE PRESENTATION, SUBSEQUENT TO DETAILED AND EXTENSIVE TREATMENT PLANNING Routine 05/08/2024 10:30 AM EST LIMITED ORAL EVALUATION - PROBLEM FOCUSED Routine 05/08/2024 10:30 AM EST US RENAL BI Urgent 05/08/2024 9:03 AM EST Gross hematuria LIPID PANEL, STANDARD Routine 10/04/2023 10:15 AM EDT Essential hypertension HEPATITIS C AB W/REFL TO HCV RNA, QN, PCR Routine 09/29/2022 8:02 AM EDT Encounter for routine history and physical exam for male HM COLONOSCOPY Routine 03/07/2020 from Last 3 Months or Most Recently Relevant to Health Maintenance Results * CT Lung Screening Low dose (06/26/2024 8:49 AM EST) Anatomical Region Laterality Modality Lung Computed Tomogra phy 06/26/2024 8:49 AM EST Narrative 07/19/2024 10:37 AM EST ? [facility] ?[address] ?[place] [address] ? CT Scan Report ? Signed ? Patient: Jayesh Che ?MR#: [id number] ?? 6 ? : 1950 ?Acct:[id number] ? Age/Sex: 74 / M ?ADM Date: 06/26/24 ? Loc: HO.CT ? Attending Dr: Dm Moraes MD ? Ordering Physician: Dm Moraes MD ?? Date of Service: 06/26/24 ?? Procedure(s): CT lung screening ?? Accession Number(s): [id number] ? cc: Niki Ramos MD; Dm Moraes MD ? Report Number: ?? [id number]: Total DLP = ?? 52.00 mGy-cm ?? EXAMINATION: ?? CT LOW-DOSE SCREENING CHEST WITHOUT CONTRAST ? CLINICAL INFORMATION: ?? Personal history of nicotine dependence. The patient has a 35 pack-year ?? history of smoking, having quit 13 years ago. ? COMPARISON: ?? CT chest 05/21/2022. ? TECHNIQUE: ?? Multidetector volumetric CT imaging of the chest is performed on a ?? Siemens SOMATOM Definition scanner without contrast using low dose ?? technique. Additional 2D coronal and sagittal reformatted images and ?? axial 3D maximum intensity projection (MIP) images are generated on the ?? CT workstation. ? This CT examination was performed using dose optimization techniques as ?? appropriate, variously including the following: ?? *Automated exposure control ?? *Adjustment of mA and/or kV according to patient size (this includes ?? techniques or standardized protocols for targeted exams where dose is ?? matched to indication/reason for exam; i.e. extremities or head) ?? *Use of iterative reconstruction technique ? TOTAL EXAM DLP: ?? 52 mGy-cm. ? CTDIvol: ?? 140 mGy. ? FINDINGS: ? PULMONARY NODULES: There are no lung nodules visualized ? LUNGS: There is diffuse emphysematous lungs without any acute pneumonic ?? process. No consolidation, groundglass density are atelectatic changes ?? seen. There is no bronchiectasis either. ? MEDIASTINUM: The thyroid lobes are symmetric and normal. The central ?? trachea and the bronchi are widely patent. Heart size and the great ?? vessels are normal caliber. No pericardial effusion seen. No abnormal ?? size mediastinal hilar lymph nodes are ? CORONARY ARTERY CALCIFICATION: None visualized on this study. ? THYROID GLAND: Unremarkable to the extent seen. ? CARDIOVASCULAR STRUCTURES: Aortic and heart size normal. No pericardial ?? effusion. ? CHEST WALL/AXILLA: Unremarkable. ? UPPER ABDOMEN: Visualized liver, spleen, pancreas and bilateral adrenal ?? glands are unremarkable. ? OSSEOUS STRUCTURES: No aggressive lytic or sclerotic process seen. ?? There is mild ventral spondylosis dorsal spine. ? CT/CT lung screening ?? IMPRESSION: ?? No pulmonary nodule, mass, consolidation or abnormal lymphadenopathy. ? ASSESSMENT: ?? 1. Lung-RADS Category 1: Negative. There are no nodules or there are ?? definitely benign nodules. ? 2. Lung-RADS Category S: None. ? RECOMMENDATION: ?? Low-dose annual CT screening. ? Electronically signed by: ??Ariel Navarro MD ??07/19/2024 10:34 AM EST RP ? Dictated By: ?Ariel Navarro MD ? Signed By: ?<Electronically signed by Ariel Navarro MD in OV> ?07/19/24 1034 ? DD/ 0849 ? TD/TT: 06/26/24 0855 ? Physical Therapy Professor: MSM ? Procedure Note [place]oter, Image - 07/19/[address] [address] [address] Scan Report Signed Patient: Luis Che#: [id number] 6 : 1950Acct:[id number] Age/Sex: 74 / MADM Date: 06/26/24 Loc: HO.CT Attending Dr: Dm Moraes MD Ordering Physician: Dm Moraes MD Date of Service: 06/26/24 Procedure(s): CT lung screening Accession Number(s): [id number] cc: Niki Ramos MD; Dm Moraes MD Report Number: [id number]: Total DLP = 52.00 mGy-cm EXAMINATION: CT LOW-DOSE SCREENING CHEST WITHOUT CONTRAST CLINICAL INFORMATION: Personal history of nicotine dependence. The patient has a 35 pack-year history of smoking, having quit 13 years ago. COMPARISON: CT chest 05/21/2022. TECHNIQUE: Multidetector volumetric CT imaging of the chest is performed on a Siemens SOMATOM Definition scanner without contrast using low dose technique. Additional 2D coronal and sagittal reformatted images and axial 3D maximum intensity projection (MIP) images are generated on the CT workstation. This CT examination was performed using dose optimization techniques as appropriate, variously including the following: *Automated exposure control *Adjustment of mA and/or kV according to patient size (this includes techniques or standardized protocols for targeted exams where dose is matched to indication/reason for exam; i.e. extremities or head) *Use of iterative reconstruction technique TOTAL EXAM DLP: 52 mGy-cm. CTDIvol: 140 mGy. FINDINGS: PULMONARY NODULES: There are no lung nodules visualized LUNGS: There is diffuse emphysematous lungs without any acute pneumonic process. No consolidation, groundglass density are atelectatic changes seen. There is no bronchiectasis either. MEDIASTINUM: The thyroid lobes are symmetric and normal. The central trachea and the bronchi are widely patent. Heart size and the great vessels are normal caliber. No pericardial effusion seen. No abnormal size mediastinal hilar lymph nodes are CORONARY ARTERY CALCIFICATION: None visualized on this study. THYROID GLAND: Unremarkable to the extent seen. CARDIOVASCULAR STRUCTURES: Aortic and heart size normal. No pericardial effusion. CHEST WALL/AXILLA: Unremarkable. UPPER ABDOMEN: Visualized liver, spleen, pancreas and bilateral adrenal glands are unremarkable. OSSEOUS STRUCTURES: No aggressive lytic or sclerotic process seen. There is mild ventral spondylosis dorsal spine. CT/CT lung screening IMPRESSION: No pulmonary nodule, mass, consolidation or abnormal lymphadenopathy. ASSESSMENT: 1. Lung-RADS Category 1: Negative. There are no nodules or there are definitely benign nodules. 2. Lung-RADS Category S: None. RECOMMENDATION: Low-dose annual CT screening. Electronically signed by: Ariel Navarro MD 07/19/2024 10:34 AM EST Dictated By: Ariel Navarro MD Signed By: <Electronically signed by Ariel Navarro MD in OV> 07/19/24 1034 DD/ 0849 TD/TT: 06/26/24 0855 Physical Therapy Professor: [facility] External Provider IMG CT PROCEDURES Final Result * (ABNORMAL) PSA, Free and Total (06/22/2024 8:58 AM EST) PSA, Total 10.7(A) < OR = 4.0 ng/mL [facility] PSA % Free NOT CALCULATED >25 % (calc) [facility] Comment: PSA(ng/mL) ?Free PSA(%) ? Estimated(x) Probability ? of Cancer(as%)0-2.5 ?(*) ? Approx. 12.6-4.0(1) ? 0-27(2) ? 24(3)4.1-10(4) ?0-10 ?56 ? 11-15 ? 28 ? 16-20 ? 20 ? 21-25 ? 16 ? >or =26 ? 8>10(+) ? N/A ?>50References:(1)Sangita aguilar al.:Urology 60: 469-474 (2002) ? (2)Sangita aguilar al.:J.Urol 168: 922-925 (2002) ?Free PSA(%) ?? Sensitivity(%) ??Specificity(%) ?< or = 25 ?85 ?19 ?< or = 30 ?93 ? 9 ? (3)Sangita et al.:TRICE 277: 3428-6097 (1996) ? (4)Sangita et al.:TRICE 279: 8978-0239 (1997)(x)These estimates vary with age, ethnicity, family ?? history and JONO results.(*)The diagnostic usefulness of % Free PSA has not been ?? established in patients with total PSA below 2.6 ng/mL(+)In men with PSA above 10 ng/mL, prostate cancer risk is ?? determined by total PSA alone.The Total PSA value from this assay system isstandardized against the equimolar PSA standard.The test result will be approximately 20% higherwhen compared to the WHO-standardized Total PSA(Siemens assay). Comparison of serial PSA resultsshould be interpreted with this fact in mind.PSA was performed using the Reshma CoulterImmunoassay method. Values obtained from differentassay methods cannot be used interchangeably. PSAlevels, regardless of value, should not be interpretedas absolute evidence of the presence or absence ofdisease.THIS TEST WAS PERFORMED AT:[facility] [place] [address] ??[id number] LORENZANA MD PSA, Free 1.4 ng/mL [facility] 06/22/2024 8:58 AM EST 06/22/2024 8:58 AM EST us Generic External Data Provider LAB BLOOD ORDERAB LES Final Result [facility] [address] [place] [address] [phone] * (ABNORMAL) PSA, Total With Reflex to PSA, Free (06/22/2024 7:57 AM EST) PSA,Total (Free>4and<10) 9.86(H) 0.00 - 4.00 ng/mL [facility] Comment:PSA methodology: Abb melo Alikaitlinty i ChemiluminescentMicroparticle Immunoassay (CMIA) 06/22/2024 7:57 AM EST 06/22/2024 8:03 AM EST us Generic External Data Provider LAB BLOOD ORDERAB LES Final Result [facility] [address] [facility] [place] [address] [phone] * MR Prostate w and w/o Contrast (05/29/2024 9:00 AM EST) Anatomical Region Laterality Modality Magnetic Resonan ce 05/29/2024 9:00 AM EST Narrative 06/18/2024 9:29 PM EST ? [facility] ?[address] ?[place] [address] ? Magnetic Resonance Report ? Signed ? Patient: Che,Jayesh ?MR#: [id number] ?? 6 ? : 1950 ?Acct:[id number] ? Age/Sex: 74 / M ?ADM Date: 05/29/24 ? Loc: HO.MRI ? Attending Dr: Gilles Whitley MD ? Ordering Physician: Gilles Whitley MD ?? Date of Service: 05/29/24 ?? Procedure(s): MR Prostate wo/w con ?? Accession Number(s): [id number] ? cc: Niki Ramos MD; Gilles Whitley MD ? PELVIC/PROSTATE MRI WITH AND WITHOUT CONTRAST AND RECONSTRUCTIONS: ? Indication: R97.20 - Elevated prostate specific antigen [PSA] ? Multiple routine MRI sequences through the pelvis were obtained on a 3T ?? MRI through the pelvis with specific attention being given to the ?? prostate. Pre-and postcontrast images were evaluated. 15 mL of Gadavist ?? intravenous contrast was utilized without incident. Diffusion-weighted ?? imaging with apparent diffusion coefficient calculation and dynamic ?? contrast perfusion imaging were performed. The study was reviewed on a ?? dedicated independent workstation and extensively post processed for ?? multi-parametric mapping and analysis. PIRADS 2.1 Criteria was utilized ?? in reporting. ? Comparison: No pertinent prior studies were available for comparison ? Findings: Evaluation is slightly limited due to dephasing artifact ?? related to the markedly gas-distended rectum. ? The prostate measures 6.5 x 5.4 x 5.4 cm in size for a volume of 82 mL. ? The transitional zone is enlarged and heterogeneous. The prostate ?? contour is smooth. Any specific regions of interest that were ?? identified were marked on the [employer] CAD magnetic observer as described below: ? REGION OF INTEREST ONE: ?Location: Right base lateral peripheral zone, series 7, image ?? 19, 1.7 x 0.7 x 0.9 cm (0.8 mL volume). ?PI RADS category: 4 ?Dominant sequence:*Diffusion-weighted imaging ? T2 weighting (Peripheral Zone): Circumscribed, homogeneous moderate ?? hypointense focus/mass confined to the prostate and less than 1.5 cm in ?? greatest dimension ?? PI-RADS category: 4 ? *Diffusion/ADC mapping: Focal markedly hypointense on ADC and markedly ?? hyperintense on high b-value DWI; less than 1.5 cm in greatest dimension ?? PI-RADS category: 4 ? T1-weighting: Minimal heterogeneous signal change. No discrete mass. ?? PI-RADS category: 1 ? Perfusion/dynamic contrast enhancement: Focal and; earlier than or ?? contemporaneously with enhancement of adjacent normal prostatic tissues ?? and corresponds to a suspicious finding on T2 weighted images and/or ?? diffusion-weighted images ?? PI-RADS category: Positive ? REGION OF INTEREST TWO: ?? Location: Left mid transition zone plus left mid anterior fibromuscular ?? stroma, series 7, image 24, 3.9 x 0.5 x 1.6 cm (5.6 mL volume). ?PI RADS category: 5 ?Dominant sequence:*T2 weighted imaging ? *T2 weighting (Transitional Zone): Lenticular or non-circumscribed, ?? homogeneous, moderately hypointense, ??but greater than or equal to 1.5 ?? cm in greatest dimension or definite extraprostatic extension/invasive ?? behavior. ?? PI-RADS category: 5 ? *Diffusion/ADC mapping: Focal markedly hypointense on ADC and markedly ?? hyperintense on high b-value DW but greater than or equal to 1.5 cm in ?? greatest dimension or definite extraprostatic extension/invasive ?? behavior. ?? PI-RADS category: 5 ? T1-weighting: Minimal heterogeneous signal change. No discrete mass. ?? PI-RADS category: 1 ? Perfusion/dynamic contrast enhancement: No early enhancement or diffuse ?? enhancement not corresponding to focal finding or focal enhancement ?? corresponding to the lesion demonstrating features of BPH on T2 ?? weighted images. ?? PI-RADS category: Negative ? Mild heterogeneous signal seen elsewhere in the gland but no other ?? discrete lesions were marked. ? EXTRAPROSTATIC: ? Seminal vesicles: Within normal limits and symmetric. ? Prostate capsule: The capsule appears grossly intact. No suspicious ?? signal in the region of the neurovascular bundle. No disruption to the ?? fascial planes between the prostate and rectum. ? Regional assessment: There are no enlarged pelvic lymph nodes ?? identified. ? Marrow/osseous structures: No suspicious marrow signal abnormality. ?? Mild degenerative disc disease at the lumbosacral junction. ? Bladder: Diffuse bladder wall trabeculation and thickening, consistent ?? with bladder wall hypertrophy. Large TURP defect seen at the bladder ?? base extending into the midline of the prostate gland. ? Pelvis: No suspicious pelvic mass or collection. No free pelvic fluid. ? Small bilateral fat-containing inguinal hernias and fat-containing ?? umbilical hernia.. Trace bilateral scrotal hydroceles. 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 diameter. ? MR/MR Prostate wo/w con ?? IMPRESSION: ?? 1. ??Enlarged heterogeneous prostate gland is seen with a midline TURP ?? defect and 2 abnormal regions of interest seen, which were marked on ?? the [employer] magnetic observer in contemplation for MRI/ultrasound guided fusion ?? biopsy: ?? -Right base lateral peripheral zone circumscribed moderately T2 ?? hypointense and moderately suspicious signal abnormality with ?? associated moderate restricted diffusion and positive early enhancement. ?? -Left mid transition zone plus left mid anterior fibromuscular stroma ?? mass with marked restricted diffusion and no early enhancement. ?? 2. No evidence for extraprostatic extension. ?? 3. No regional metastases were identified on the study. ?? 4. 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 ? Overall PI-RADS category: 5 ? PI-RADS category 1 = clinically significant disease is highly unlikely ?? to be present ?? PI-RADS category 2 = clinically significant cancer unlikely to be ?? present ?? PI-RADS category 3 = clinically significant cancer is equivocal (low ?? suspicion) ?? PI-RADS category 4 = clinically significant cancer is likely to be ?? present (moderate suspicion) ?? PI-RADS category 5 = clinically significant cancer is highly likely to ?? be present (high suspicion) ?? PI-RADS category X = component of the exam technically inadequate or ?? not performed ? Electronically signed by: ??Bonnie Sanders MD ??06/18/2024 09:25 PM EST RP ? Dictated By: ?Bonnie Sanders MD ? Signed By: ?<Electronically signed by Bonnie Sanders MD in OV> ? 06/18/242124 ? DD/ 0900 ? TD/TT: 05/29/24 0950 ? Physical Therapy Professor: DJ ? Procedure Note Emely, Vik - 06/19/2024 [place] [address] Magnetic Resonance Report Signed Patient: Luis Che#: [id number] 6 : 1950Acct:[id number] Age/Sex: 74 / MADM Date: 05/29/24 Loc: HO.MRI Attending Dr: Gilles Whitley MD Ordering Physician: Gilles Whitley MD Date of Service: 05/29/24 Procedure(s): MR Prostate wo/w con Accession Number(s): [id number] cc: Niki Ramos MD; Gilles Whitley MD PELVIC/PROSTATE MRI WITH AND WITHOUT CONTRAST AND RECONSTRUCTIONS: Indication: R97.20 - Elevated prostate specific antigen [PSA] Multiple routine MRI sequences through the pelvis were obtained on a 3T MRI through the pelvis with specific attention being given to the prostate. Pre-and postcontrast images were evaluated. 15 mL of Gadavist intravenous contrast was utilized without incident. Diffusion-weighted imaging with apparent diffusion coefficient calculation and dynamic contrast perfusion imaging were performed. The study was reviewed on a dedicated independent workstation and extensively post processed for multi-parametric mapping and analysis. PIRADS 2.1 Criteria was utilized in reporting. Comparison: No pertinent prior studies were available for comparison Findings: Evaluation is slightly limited due to dephasing artifact related to the markedly gas-distended rectum. The prostate measures 6.5 x 5.4 x 5.4 cm in size for a volume of 82 mL. The transitional zone is enlarged and heterogeneous. The prostate contour is smooth. Any specific regions of interest that were identified were marked on the [employer] CAD magnetic observer as described below: REGION OF INTEREST ONE: Location: Right base lateral peripheral zone, series 7, image 19, 1.7 x 0.7 x 0.9 cm (0.8 mL volume). PI RADS category: 4 Dominant sequence:*Diffusion-weighted imaging T2 weighting (Peripheral Zone): Circumscribed, homogeneous moderate hypointense focus/mass confined to the prostate and less than 1.5 cm in greatest dimension PI-RADS category: 4 *Diffusion/ADC mapping: Focal markedly hypointense on ADC and markedly hyperintense on high b-value DWI; less than 1.5 cm in greatest dimension PI-RADS category: 4 T1-weighting: Minimal heterogeneous signal change. No discrete mass. PI-RADS category: 1 Perfusion/dynamic contrast enhancement: Focal and; earlier than or contemporaneously with enhancement of adjacent normal prostatic tissues and corresponds to a suspicious finding on T2 weighted images and/or diffusion-weighted images PI-RADS category: Positive REGION OF INTEREST TWO: Location: Left mid transition zone plus left mid anterior fibromuscular stroma, series 7, image 24, 3.9 x 0.5 x 1.6 cm (5.6 mL volume). PI RADS category: 5 Dominant sequence:*T2 weighted imaging *T2 weighting (Transitional Zone): Lenticular or non-circumscribed, homogeneous, moderately hypointense, but greater than or equal to 1.5 cm in greatest dimension or definite extraprostatic extension/invasive behavior. PI-RADS category: 5 *Diffusion/ADC mapping: Focal markedly hypointense on ADC and markedly hyperintense on high b-value DW but greater than or equal to 1.5 cm in greatest dimension or definite extraprostatic extension/invasive behavior. PI-RADS category: 5 T1-weighting: Minimal heterogeneous signal change. No discrete mass. PI-RADS category: 1 Perfusion/dynamic contrast enhancement: No early enhancement or diffuse enhancement not corresponding to focal finding or focal enhancement corresponding to the lesion demonstrating features of BPH on T2 weighted images. PI-RADS category: Negative Mild heterogeneous signal seen elsewhere in the gland but no other discrete lesions were marked. EXTRAPROSTATIC: Seminal vesicles: Within normal limits and symmetric. Prostate capsule: The capsule appears grossly intact. No suspicious signal in the region of the neurovascular bundle. No disruption to the fascial planes between the prostate and rectum. Regional assessment: There are no enlarged pelvic lymph nodes identified. Marrow/osseous structures: No suspicious marrow signal abnormality. Mild degenerative disc disease at the lumbosacral junction. Bladder: Diffuse bladder wall trabeculation and thickening, consistent with bladder wall hypertrophy. Large TURP defect seen at the bladder base extending into the midline of the prostate gland. Pelvis: No suspicious pelvic mass or collection. No free pelvic fluid. Small bilateral fat-containing inguinal hernias and fat-containing umbilical hernia.. Trace bilateral scrotal hydroceles. Aneurysmal proximal right external iliac artery, measuring up to 2.6 cm in diameter. MR/MR Prostate wo/w con IMPRESSION: 1. Enlarged heterogeneous prostate gland is seen with a midline TURP defect and 2 abnormal regions of interest seen, which were marked on the [employer] CAD magnetic observer in contemplation for MRI/ultrasound guided fusion biopsy: -Right base lateral peripheral zone circumscribed moderately T2 hypointense and moderately suspicious signal abnormality with associated moderate restricted diffusion and positive early enhancement. -Left mid transition zone plus left mid anterior fibromuscular stroma mass with marked restricted diffusion and no early enhancement. 2. No evidence for extraprostatic extension. 3. No regional metastases were identified on the study. 4. 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 Overall PI-RADS category: 5 PI-RADS category 1 = clinically significant disease is highly unlikely to be present PI-RADS category 2 = clinically significant cancer unlikely to be present PI-RADS category 3 = clinically significant cancer is equivocal (low suspicion) PI-RADS category 4 = clinically significant cancer is likely to be present (moderate suspicion) PI-RADS category 5 = clinically significant cancer is highly likely to be present (high suspicion) PI-RADS category X = component of the exam technically inadequate or not performed Electronically signed by: Bonnie Sanders MD 06/18/2024 09:25 PM EST RP Dictated By: Bonnie Sanders MD Signed By: <Electronically signed by Bonnie Sanders MD in OV> 06/18/242124 DD/ 09 TD/TT: 05/29/24 0950 Physical Therapy Professor: [facility] [facility] External Provider IMG MRI PROCEDURES Edited Result - Final * US RENAL BI (05/08/2024 9:03 AM EST) Anatomical Region Laterality Modality Abdomen Ultrasound 05/08/2024 9:03 AM EST Narrative 05/08/2024 10:59 AM EST ? [facility] ?[address] ?[place] [address] ? Ultrasound Report ? Signed ? Patient: Jayesh Che ?MR#: [id number] ?? 6 ? : 1950 ?Acct:[id number] ? Age/Sex: 74 / M ?ADM Date: 05/08/24 ? Loc: HO.US ? Attending Dr: Marina Manzanares SENIOR SCRUM MASTER ? Ordering Physician: Marina Manzanares NP ?? Date of Service: 05/08/24 ?? Procedure(s): US renal BI ?? Accession Number(s): [id number] ? cc: Niki Ramos MD; Marina Manzanares NP ? EXAMINATION: ?? US RETROPERITONEAL LIMITED (RENAL ONLY) ? CLINICAL INFORMATION: ?? Gross hematuria. ? COMPARISON: ?? 11/03/2023 ultrasound bladder, 01/04/2023 CT abdomen and pelvis, ?? 03/26/2020 ultrasound renals. ? TECHNIQUE: ?? Real-time ultrasound imaging of the kidneys. Limited visualization due ?? to bowel gas. ? FINDINGS: ? RIGHT KIDNEY: 10.6 x 5.9 x 6.4 cm (SAG x AP x TRV). No hydronephrosis. ?? 3 mm lower pole calculus. Renal cortical thickness is normal. Limited ?? visualization. ? 1.7 cm medial right renal cyst with benign features. There is no ?? indication for followup imaging. ? A 0.6 cm right renal echogenic lesion not well characterized in the ?? upper pole, possibly an angiomyolipoma. ? LEFT KIDNEY: 10.4 x 4.9 x 5.9 cm (SAG x AP x TRV). No hydronephrosis. ?? Renal cortical thickness is normal. Limited visualization. ? Multiple renal calculi measuring 3 mm mid pole, 2 mm mid pole and 3 mm ?? lower pole. ? 1.0 cm lower pole cyst with benign features. There is no indication for ?? followup imaging. ? US/US renal BI ?? IMPRESSION: ?? Bilateral nephrolithiasis. No hydronephrosis. ? Right renal 0.6 cm echogenic lesion, possibly an angiomyolipoma, ?? difficult to characterize due to small size and not characterized on ?? prior exams. ? Electronically signed by: ??Germania Oliveira MD ??05/08/2024 10:56 AM EST ? Dictated By: ?Germania Oliveira MD ? Signed By: ?<Electronically signed by Germania Oliveira MD in OV> ? 11/04/24 1056 ? DD/ 2 ? TD/TT: 05/08/24924 ? Physical Therapy Professor: ? Procedure Note Emely, Image - 05/08/2024 [place] [address] Ultrasound Report Signed Patient: Luis Che#: [id number] 6 : 1950Acct:[id number] Age/Sex: 74 / MADM Date: 05/08/24 Loc: HO.US Attending Dr: Marina Manzanares SENIOR SCRUM MASTER Ordering Physician: Marina Manzanares NP Date of Service: 05/08/24 Procedure(s): US renal BI Accession Number(s): [id number] cc: Niki Ramos MD; Marina Manzanares NP EXAMINATION: US RETROPERITONEAL LIMITED (RENAL ONLY) CLINICAL INFORMATION: Gross hematuria. COMPARISON: 11/03/2023 ultrasound bladder, 01/04/2023 CT abdomen and pelvis, 03/26/2020 ultrasound renals. TECHNIQUE: Real-time ultrasound imaging of the kidneys. Limited visualization due to bowel gas. FINDINGS: RIGHT KIDNEY: 10.6 x 5.9 x 6.4 cm (SAG x AP x TRV). No hydronephrosis. 3 mm lower pole calculus. Renal cortical thickness is normal. Limited visualization. 1.7 cm medial right renal cyst with benign features. There is no indication for followup imaging. A 0.6 cm right renal echogenic lesion not well characterized in the upper pole, possibly an angiomyolipoma. LEFT KIDNEY: 10.4 x 4.9 x 5.9 cm (SAG x AP x TRV). No hydronephrosis. Renal cortical thickness is normal. Limited visualization. Multiple renal calculi measuring 3 mm mid pole, 2 mm mid pole and 3 mm lower pole. 1.0 cm lower pole cyst with benign features. There is no indication for followup imaging. US/US renal BI IMPRESSION: Bilateral nephrolithiasis. No hydronephrosis. 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 Electronically signed by: Germania Oliveira MD 05/08/2024 10:56 AM [facility] Dictated By: Germania Oliveira MD Signed By: <Electronically signed by Germania Oliveira MD in OV> 05/08/24 1056 DD/ 09 TD/TT: 05/08/24924 Physical Therapy Professor: us Marina Manzanares NP IM US PROCEDURES Edited Result - Final * (ABNORMAL) Lipid Panel, Standard (10/04/2023 10:15 AM EDT) Triglycerides 128 <150 mg/dL [facility] Comment:Desirable Triglyceri de: less than 150 mg/dLBorderline High Triglyceride 150-199 mg/dLHigh Triglyceride: 200-499 mg/dLVery High Triglyceride: greater than or equal to 5OO mg/dL Cholesterol 211(H) <200 mg/dL [facility] Comment:Desirable Cholestero l: less than 200 mg/dLBorderline High Cholesterol: 200-239 mg/dLHigh Cholesterol: greater than 239 mg/dL LDL Cholesterol Calculated 136(H) <100 mg/dL [facility] Comment:Desirable LDL: less than 100 mg/dLNear Optimal/Above Optimal LDL: 110- 129 mg/dLBorderline High LDL: 130-159 mg/dLHigh LDL: 160-189 mg/dLVery High LDL: greater than or equal to 190 mg/dL HDL Cholesterol 50 >40 mg/dL [facility] Comment:Desirable HDL: great er than 40 mg/dL Note: This HDL assay may give artificially low results in patients with liver disease. Blood Venous blood specimen / Unknown 10/04/2023 10:15 AM EDT 10/04/2023 11:15 AM EDT Niki Simmons MD LAB BLOOD ORDERABLES Final Result [facility] [address] [place] [address] [phone] * Hepatitis C Antibody with Reflex to HCV, RNA, Quantitative, Real-Time PCR (09/29/2022 8:02 AM EDT) Hepatitis C Antibody NON-REACT RODERICK NON-REACT RODERICK [employer] Index 0.04 <1.00 [employer] Comment: HCV antibody was non-reactive. There is no laboratory evidence of HCV infection. In most cases, no further action is required. However, if recent HCV exposure is suspected, a test for HCV RNA (test code 17754) is suggested. For additional information please refer to http://education.[employer]/faq/BOX69m8 (This link is being provided for informational/ educational purposes only.) Blood Venous blood specimen / Unknown 09/29/2022 8:02 AM EDT 09/29/2022 8:03 AM EDT Narrative [facility] - 09/30/2022 12:55 AM EDT FASTING:YES FASTING: YES us Niki Simmons MD LAB BLOOD ORDERABLES Final Result [facility] [address] [facility], [facility], [place] [address] [employer] [facility] [address] [place] [address] * Hm Colonoscopy (03/07/2020) us Historical Provider HEALTH MAINTENANCE Final Result from Last 3 Months or Most Recently Relevant to Health Maintenance Insurance [employer] [facility] - [facility] - [facility] Care Teams Performance Improvement Coordinator Relationship Specialty Start Date End Date Niki Ramos MD [address] [place] [address] PCP - General Family Medicine 03/24/18"
--- OUTSIDE RECORDS SUMMARY | 2024-08-08 10:26 | XMS_ITS | Encounter Summary ---
Author Organization [employer] Address [address] [facility] 7t [place] [address] Care Team Providers Care Steel Spar Operator Name Role Phone Niki Ramos MD Primary Care Provide r Reason for Visit * Reason Comments Dentures Encounter Details Date Type Department Care Team ([facility] st Contact Info) Description 07/10/2024 10:00 AM EST Office Visit [facility] ADULT DENTAL [address] [place] [address] Sundeep Felipe, DMD [address] [place] [address] Social History Tobacco Use Types Packs/Day Years Used Date Smoking Tobacco: Former Cigarettes Passive Smoke Exposure: Past Smokeless Tobacco: Never Alcohol Use Standard Drinks/Week Comments Not Currently 0 (1 standard drink = 0.6 oz pur e alcohol) Depression Answer Date Recorded Patient Health Questionnaire-9 Score 0 10/04/2023 Patient Health Questionnaire-9 Score 0 10/04/2023 Last PHQ-9: Questionnaire Data Not on file 0 10/04/2023 Housing Stability Answer Date Recorded What is your housing situation today? I have liudmila rios 04/22/[address] you [...] Orientation Straight 05/04/2022 10 :30 AM EDT documented as of this encounter Progress Notes * Sundeep Felipe DMD - 07/10/2024 10:00 AM EST Teeth try in of P/. Pt likes the esthetic NV: Delivery of P/ Rowan documented in this encounter Plan of Treatment Upcoming Encounters Date Type Department Care Team (Late st Contact Info) Description 08/24/2024 10:00 AM EST Office Visit [facility] ADULT DENTAL [address] [place] [address] Sundeep Felipe DMD [address] [place] [address] documented as of this encounter Procedures Procedure Name Priority Date/Time Associated Diagnosis Comments WAX TRY IN Routine 07/10/2024 10:00 AM EST documented in this encounter Visit Diagnoses Not on filedocumented in this encounter Additional Health Concerns Assessment Noted Time PHQ-9 Depression Total Score: 0 10/04/19 24 9:42 AM EDT documented as of this encounter Care Teams Steel Spar Operator Relationship Specialty Start Date End Date Niki Ramos MD [address] [place] [address] PCP - General Family Medicine 03/24/18 documented as of this encounter
--- OUTSIDE RECORDS SUMMARY | 2024-08-08 10:26 | XMS_ITS | Encounter Summary ---
Author Organization [employer] Address 75 [facility] 7t [place] [address] Care Team Providers Care Welder Assembler Name Role Phone Niki Ramos MD Primary Care Provide r Encounter Details Date Type Department Care Team (Late Contact Info) Description 02/19/2023 Orders Only [facility] [address] [place], [place] [phone] Janelle Jones LPN Social History Tobacco Use Types Packs/Day Years Used Date Smoking Tobacco: Former Cigarettes Passive Smoke Exposure: Past Smokeless Tobacco: Never Alcohol Use Standard Drinks/Week Comments Not Currently 0 (1 standard drink = 0.6 oz pur e alcohol) Depression Answer Date Recorded Patient Health Questionnaire-9 Score 8 09/25/2022 Depression Answer Date Recorded Patient Health Questionnaire-2 Score 4 09/25/2022 Sex and Gender Information Value Date Recorded Sex Assigned at Male 05/04/2022 10:30 AM EDT Legal Sex Male 10:30 AM EDT Gender Identity Male 05/04/2022 10:30 AM EDT Sexual Orientation Straight 05/04/2022 10 :30 AM EDT documented as of this encounter Plan of Treatment Upcoming Encounters Date Type Department Care Team (Late st Contact Info) Description 08/24/2024 10:00 AM EST Office Visit [facility] ADULT DENTAL [address] [place] [address] Sundeep Felipe, ROBERTO [address] [place], [place] [phone] documented as of this encounter Visit Diagnoses Not on filedocumented in this encounter Additional Health Concerns Assessment Noted Time PHQ-9 Depression Total Score: 8 09/26/19 23 9:12 AM EDT documented as of this encounter Care Teams Welder Assembler Relationship Specialty Start Date End Date Niki Ramos MD [address] [place] [address] PCP - General Family Medicine 03/24/18 documented as of this encounter
--- OUTSIDE RECORDS SUMMARY | 2024-08-08 10:26 | XMS_ITS | Encounter Summary ---
Author Organization [employer] Address [address] [facility] [address] 7t [place] [address] Care Team Providers Care Taper And Floater Name Role Phone Niki Ramos MD Primary Care Provide r Encounter Details Date Type Department Care Team ([facility] st Contact Info) Description 06/26/2024 Orders Only [facility] External Provider, [facility] Social History Tobacco Use Types Packs/Day Years [...] Description 08/24/2024 10:00 AM EST Office Visit [facility] ADULT [facility] [address] [facility] [place] [address] Sundeep Felipe, DMD [address] [place] [address] documented as of this encounter Procedures Procedure Name Priority Date/Time Associated Diagnosis Comments LDCT LUNG SCREENING Routine 06/26/2024 8 :49 AM EST documented in this encounter Results * CT Lung Screening Low dose (06/26/2024 8:49 AM EST) Anatomical Region Laterality Modality Lung Computed Tomogra phy 06/26/2024 8:49 AM EST Narrative 07/19/2024 10:37 AM EST ? [facility] ?[address] ?[place] [address] ? CT Scan Report ? Signed ? Patient: Jayesh Che ?MR#: [id number] ?? 6 ? : 1950 ?Acct:[id number] ? Age/Sex: 74 / M ?ADM Date: 06/26/24 ? Loc: HO.CT ? Attending Dr: Dm Moraes MD ? Ordering Physician: Dm Moraes MD ?? Date of Service: 06/26/24 ?? Procedure(s): CT lung screening ?? Accession Number(s): [id number] ? cc: Niki Ramos MD; Dm Moraes MD ? Report Number: ?? [id number]: Total DLP = ?? 52.00 mGy-cm ?? [...] DD/ 0849 ? TD/TT: 06/26/24 0855 ? Carton And Can Supply Supervisor: MSM ? Procedure Note Donotuseinterpreter, Image - 07/19/[address] [address] [address] Scan Report Signed Patient: Luis Che#: [id number] 6 : 1950Acct:[id number] Age/Sex: 74 / MADM Date: 06/26/24 Loc: HO.CT Attending Dr: Dm Moraes MD Ordering Physician: Dm Moraes MD Date of Service: 06/26/24 Procedure(s): CT lung screening Accession Number(s): [id number] cc: Niki Ramos MD; Dm Moraes MD Report Number: [id number]: Total DLP = 52.00 mGy-cm EXAMINATION: CT [...] by: Ariel Navarro MD 07/19/2024 10:34 AM [facility] Dictated By: Ariel Navarro MD Signed By: <Electronically signed by Ariel Navarro MD in OV> 07/19/24 1034 DD/ 0849 TD/TT: 06/26/24 0855 [employer] Supervisor: [facility] External Provider IMG CT PROCEDURES Final Result documented in this encounter Visit Diagnoses Not on filedocumented in this encounter Additional Health Concerns Assessment Noted Time PHQ-9 Depression Total Score: 0 10/04/19 24 9:42 AM EDT documented as of this encounter Care Teams Taper And Floater Relationship Specialty Start Date End Date Niki Ramos MD [address] [place] [address] PCP - General Family Medicine 03/24/18 documented as of this encounter
--- OUTSIDE RECORDS SUMMARY | 2024-08-08 10:27 | XMS_ITS | Encounter Summary ---
Author Organization [employer] Address 75 [facility] 7t [place] [address] Care Team Providers Care Account Support Manager Name Role Phone Niki Ramos MD Primary Care Provide r Encounter Details Date Type Department Care Team (Late st Contact Info) Description 07/30/2022 Abstract [facility] ADULT DENTAL [address] [place] [address] Sundeep Felipe, DMD [address] [place] [address] Social History Tobacco Use Types Packs/Day Years Used Date Smoking Tobacco: Former Cigarettes Smokeless Tobacco: Never Sex and Gender Information Value Date Recorded Sex Assigned at Male 05/04/2022 10:30 AM EDT Legal Sex Male 10:30 AM EDT Gender Identity Male 05/04/2022 10:30 AM EDT Sexual Orientation Straight 05/04/2022 10 :30 AM EDT COVID-19 Exposure Response Date Recorded In the last 10 days, have yo u been in contact with someone who was confirmed or suspected to have Coronavirus/COVID-19? No / Unsure 07/28/2022 10:49 AM EST documented as of this encounter Plan of Treatment Upcoming Encounters Date Type Department Care Team (Late st Contact Info) Description 08/24/2024 10:00 AM EST Office Visit [facility] ADULT D[facility] [address] [place] [address] Sundeep Felipe, DMD [address] [place] [address] documented as of this encounter Visit Diagnoses Not on filedocumented in this encounter Care Teams Account Support Manager Relationship Specialty Start Date End Date Niki Ramos MD [address] [place] [address] PCP - General Family Medicine 03/24/18 documented as of this encounter
--- OUTSIDE RECORDS SUMMARY | 2024-08-08 10:27 | XMS_ITS | Encounter Summary ---
Author Organization [employer] Address 75 [facility] 7t [place] [address] Care Team Providers Care Dental Assisting Instructor Name Role Phone Niki Ramos MD Primary Care Provide r Encounter Details Date Type Department Care Team (Late st Contact Info) Description 05/27/2022 Abstract [facility] ADULT DENTAL [address] [place] [address] Dental, Provider, DDS Social History Tobacco Use Types Packs/Day Years Used Date Smoking Tobacco: Never Assessed Sex and Gender Information Value Date Recorded Sex Assigned at Male 05/04/2022 10:30 AM EDT Legal Sex Male 10:30 AM EDT Gender Identity Male 05/04/2022 10:30 AM EDT Sexual Orientation Straight 05/04/2022 10 :30 AM EDT documented as of this encounter Plan of Treatment Upcoming Encounters Date Type Department Care Team (Late st Contact Info) Description 08/24/2024 10:00 AM EST Office Visit [facility] ADULT DENTAL [address] [place] [address] Sundeep Felipe DMD [address] [place] [address] documented as of this encounter Procedures Procedure Name Priority Date/Time Associated Diagnosis Comments 6,8,9,11 RETAINER CROWN - PORCELAIN FUSED TO PREDOMINANTLY BASE METAL Routine 05/27/2022 12:00 AM EST 28 B(V) RESTORATIVE - RESIN-BASED COMPOSITE RESTORATIONS - DIRECT - RESIN-BASED COMPOSITE - ONE SURFACE, POSTERIOR Routine 05/27/2022 12:00 AM EST 5 B(V) RESTORATIVE - RESIN-BASED COMPOSITE RESTORATIONS - DIRECT - RESIN-BASED COMPOSITE - ONE SURFACE, POSTERIOR Routine 05/27/2022 12:00 AM EST 4 B(V) RESTORATIVE - RESIN-BASED COMPOSITE RESTORATIONS - DIRECT - RESIN-BASED COMPOSITE - ONE SURFACE, POSTERIOR Routine 05/27/2022 12:00 AM EST 7,10 PONTIC - PORCELAIN FUSED TO PREDOMINANTLY BASE METAL Routine 05/27/2022 12:00 AM EST documented in this encounter Visit Diagnoses Not on filedocumented in this encounter Care Teams Dental Assisting Instructor Relationship Specialty Start Date End Date Niki Ramos MD [address] [place] [address] PCP - General Family Medicine 03/24/18 documented as of this encounter
--- OUTSIDE RECORDS SUMMARY | 2024-08-08 10:27 | XMS_ITS | Encounter Summary ---
Author Organization [employer] Address 75 [facility] 7t [place] [address] Care Team Providers Care Supervisor Speech Name Role Phone Niki Ramos MD Primary Care Provide r Encounter Details Date Type Department Care Team (Latest Contact Info) Description 11/08/2018 Abstract [facility] CONVERSIONS Dental, Provider, DDS Social History Tobacco Use [...] Upcoming Encounters Date Type Department Care Team ( st Contact Info) Description 08/24/2024 10:00 AM EST Office Visit [facility] ADULT DENTAL [address] [place] [address] Sundeep Felipe, DMD [address] [place] [address] documented as of this encounter Visit Diagnoses Not on filedocumented in this encounter Care Teams Supervisor Speech Relationship Specialty Start Date End Date Niki Ramos MD [address] [place] [address] PCP - General Family Medicine 03/24/18 documented as of this encounter
--- OUTSIDE RECORDS SUMMARY | 2024-08-08 10:27 | XMS_ITS | Data Portability ---
Author Organization [place] [employer] [facility] [place] - [facility] Address [address] [place] [phone] Care Team Providers Care Executive Advisor Name Role Phone [facility] Referring Provider Assessment Encounter Date Assessment Date Assessment LastModified by Organization Details LastModified Time 05/20/2022 05/20/2022 I have reviewed and agree with the Assessment and Plan as documented by the [employer]. I provided real -time medical direction via phone for this encounter, and was available for additional phone based assistance as needed. Patient given the opportunity to ask questions. Not available 05/20/2022 13:49:00 Plan of Treatment Reminders Order Date Submit Date Provider Last Modified By Organization Details Last Modified Time Details Appointments None recorded. Lab urinalysis , dipstick 2021 [email or web address] 0 [facility], [address] [place] [address], [phone], 13:53:37 culture, urine 2021 [facility], [address] [place] [address], [id number], 08:07:02 Referral None recorded. Procedures None recorded. Surgeries None recorded. Imaging None recorded. Medication Orders Levaquin 500 mg tablet 2021 [facility], [address] [place] [address], [id number], 14:01:24 Levaquin 500 mg tablet 2021 [email or web address] 0 Not available 13:53:37 Pyridium 100 mg tablet 2021 [facility], [address] [place] [address], [id number], 14:01:24 Patient TargetsNo targets recorded. Patient InstructionsNo instructions recorded. Reason for Referral None Reported. Results Created Date Observation Date Name Description Value Unit Range Abnormal Flag Note LastModifiedBy Organization Detail LastModifiedTime 05/20/20 22 05/21/2022 URINE CULTU RE specimen description CLEAN CATCH (URINE ) Not Available [facility] [id number], [id number], 05/22/2022 08:06:59 05/20/20 22 05/21/2022 URINE CULTU RE special requests NONE Not Available [facility] [address], [id number], 05/22/2022 08:06:59 05/20/20 22 05/22/2022 URINE CULTU RE culture NO GROWTH Not Available [facility] [address], [id number], 05/22/2022 08:06:59 05/20/20 22 05/22/2022 URINE CULTU RE report status FINAL 2021 Not Available [facility] [address], [id number], 05/22/2022 08:06:59 05/20/20 22 05/20/2022 urina lysis , dipst ick Leukocytes trace Not Available [facility] [address] [place] [address], [phone], 05/20/2022 13:48:42 05/20/20 22 05/20/2022 urina lysis , dipst ick Nitrite negati ve Not Available [facility] [address] [place] [address], [phone], 05/20/2022 13:48:42 05/20/20 22 05/20/2022 urina lysis , dipst ick Urobilinogen neg Not Available [facility] [address] [place] [address], [phone], 05/20/2022 13:48:42 05/20/20 22 05/20/2022 urina lysis , dipst ick Protein trace Not Available [facility] - [facility] [address] [place] [address], [phone], 05/20/2022 13:48:42 05/20/20 22 05/20/2022 urina lysis , dipst ick pH 6 Not Available [facility] [address] [place] [address], [phone], 05/20/2022 13:48:42 05/20/20 22 05/20/2022 urina lysis , dipst ick Blood 50 rbc Not Available [facility] - [facility] [address] [place] [address], [phone], 05/20/2022 13:48:42 05/20/20 22 05/20/2022 urina lysis , dipst ick Specific [place] 1.010 Not Available [facility] [address] [place] [address], [phone], 05/20/2022 13:48:42 05/20/20 22 05/20/2022 urina lysis , dipst ick Ketone neg Not Available Main - Ins [address], [phone], 05/20/2022 13:48:42 05/20/20 22 05/20/2022 urina lysis , dipst ick Bilirubin neg Not Available [facility] - [facility] n[facility] [address] [place] [address], [phone], 05/20/2022 13:48:42 05/20/20 22 05/20/2022 urina lysis , dipst ick Glucose neg Not Available [facility] - [facility] [address] [place] [address], [phone], 05/20/2022 13:48:42 05/20/20 22 05/20/2022 urina lysis , dipst ick Appearance sl cloudy Not Available [facility] [address] [place] [address], [phone], 05/20/2022 13:48:42 05/20/20 22 05/20/2022 urina lysis , dipst ick Color pink Not Available [facility] - [facility] [address] [place] [address], [place], [phone], 05/20/2022 13:48:42 Result Notes None recorded. Medical Equipment None Reported. Allergies Allergen ID Allergen Name Allergen Category Reaction Reaction Severity Criticality Documentation Date Start Date Code Code System Note Provider Name and Address Organization Details Recorded Time 1313 acetamino phen / oxycodone medicatio n Not available Not available Not available 05/20/2022 26191 3 RxNorm Michelle Sharif MD [address] [place] [address],[address], [place], [phone], [facility] - [employer] 2 13:46:59 8126 acetamino phen medicatio n [...] Not Available Not Available No t Available [facility] 10 billion cell-200 mg [...] Details Last Updated DateTime 2 98.3 [degF] 50106.5 36 g 67 /min 96 % 96 % 18 /min 167.64 cm 98.3 [degF] 96 % 96 % 18 /min 67 /min 167.64 cm 90105.5 36 g 123 mm[Hg] 85 mm[Hg] 123 mm[Hg] 85 mm[Hg] Not Available [facility] - production 2 14:28:58 Social History None recorded. Functional Status None recorded. Mental Status None recorded. Family History Nothing Reported. Medical History No medical history recorded. Past Encounters Encounter ID Performer Location Encounter Start Date Encounter Closed Date Diagnosis/Indication Diagnosis SNOMED-CT Code Diagnosis ICD10 Code Diagnosis Note [id number] Michelle Sharif MD Main - [facility] [address] [place] [phone] 05/20/2022 13:39:36 05/22/2022 12:40:50 Acute urinary tract infection 882236163 N39.0 advised to push fluids- f/u with his urologist- concern for hematuria ? infection vs stone - vs bladder mass- may need cysto.Advi sed may have APAP( has at home has taken before without problems) 500 mg q 6 hr prn. Informed pyridium would change color of urine but should help w/ dysuria until antibiotic s kick in. Advised he will be called in culture reveals need to change atb.Also advised if develops hi fever/ severe abd or back pain/ Unable to void > 6 hrs to go to the Er. Health Concerns Section Related Observation LastModified by Organization Detai ls LastModified Time None Recorded Concern Status LastModified by Organization Details LastModified Time None Recorded Advance Directives Directive None Recorded Payers Encounter Date Sequence Insurance Name Policy Number Policy Riojas Covered Member ID Riojas Member ID Guarantor Name 05/20/2022 1 [facility] - DOS PRIOR TO 2022 - DUAL ELIGIBLE (MEDICARE REPLACEMENT/ADV ANTAGE - HMO) Jayesh Che [id number] Jayesh Che Notes Date Note Type Note Provider Name and Address Organization Details Recorded Time 05/20/2022 text/html HPI: 72 year old, Guamanian speaking male, reporting dysuria with penile pain [...] to process visit SEGMD: Pt interviewed w/ historical interpreter- only has penile pain inside when [...] .................... .................... .................... .................... .................... .................... ...... [employer] Note: Sent to a call for a pt complaining of dysuria and penile pain x 2-3 days. SC8 arrives on scene, pt is alert and oriented. Airway is patent. Pt's primary language is Guamanian; spanish interpreter line used during visit. Pt complains [...] clear, concentrated; Urine dip: results uploaded to [employer]. [facility] orders Levofloxacin 500mg PO and urine culture to be sent to [facility]. Pt advised to take Tylenol 500mg q 6hrs prn, increase oral hydration, and follow up with urologist. Levofloxacin administered without incident. [facility] sends script to pt's pharmacy for Levofloxacin and Pyridium. Red flags discussed. Pt has no further questions. .................... .................... .................... .................... .................... .................... .................... . Disposition: Fulfilled Michelle Sharif MD [address] [facility],[address], [place], [phone], ANGÉLICA GONZALEZ 05/20/2022 14:33:50
--- OUTSIDE RECORDS SUMMARY | 2024-08-08 10:27 | XMS_ITS | Encounter Summary ---
Author Organization [employer] Address [address] [facility] [address] [place] [address] Care Team Providers Care Estimate Clerk Name Role Phone Niki Ramos MD Primary Care Provide r Encounter Details Date Type Department Care Team (Late st Contact Info) Description 06/05/2022 Abstract [facility] ADULT DENTAL [address] [place] [address] Sundeep Felipe, DMD [address] [place] [address] Social History Tobacco Use Types Packs/Day Years [...] Description 08/24/2024 10:00 AM EST Office Visit [facility] ADULT DENTAL [address] [place] [address] Sundeep Felipe, DMD [address] [place] [address] documented as of this encounter Visit Diagnoses Not on filedocumented in this encounter Care Teams Estimate Clerk Relationship Specialty Start Date End Date Niki Ramos MD [address] [place] [address] PCP - General Family Medicine 03/24/18 documented as of this encounter
--- OUTSIDE RECORDS SUMMARY | 2024-08-08 10:27 | XMS_ITS | Encounter Summary ---
Author Organization [employer] Address 75 [facility] 7t [place] [address] Care Team Providers Care Manufacturing Engineering Director Name Role Phone Niki Ramos MD Primary Care Provide r Encounter Details Date Type Department Care Team (Latest Contact Info) Description 04/09/2022 Abstract [facility] CONVERSIONS Dental, Provider, DDS Social History [...] Description 08/24/2024 10:00 AM EST Office Visit [facility] ADULT DENTAL [address] [place] [address] Sundeep Felipe, DMD [address] [place] [address] documented as of this encounter Visit Diagnoses Not on filedocumented in this encounter Care Teams Manufacturing Engineering Director Relationship Specialty Start Date End Date Niki Ramos MD [address] [place] [address] PCP - General Family Medicine 03/24/18 documented as of this encounter
--- OUTSIDE RECORDS SUMMARY | 2024-08-08 10:27 | XMS_ITS | Encounter Summary ---
Author Organization [employer] Address [address] [facility] 7t [place] [address] Care Team Providers Care Bass String Winder Name Role Phone Niki Ramos MD Primary Care Provide r Encounter Details Date Type Department Care Team (Late Contact Info) Description 03/12/2023 Orders Only [facility] MEDICINE [address] [place] [address] Provider, MD Yao Social History Tobacco Use Types Packs/Day Years [...] Description 08/24/2024 10:00 AM EST Office Visit [facility] ADULT DENTAL [address] [place] [address] Sundeep Felipe DMD [address] [place] [address] documented as of this encounter Procedures Procedure Name Priority Date/Time Associated Diagnosis Comments HM COLONOSCOPY Routine 03/07/2020 documented in this encounter Results * Hm Colonoscopy (03/07/2020) us Historical Provider HEALTH MAINTENANCE Final Result documented in this encounter Visit Diagnoses Not on filedocumented in this encounter Additional Health Concerns Assessment Noted Time PHQ-9 Depression Total Score: 8 09/26/19 23 9:12 AM EDT documented as of this encounter Care Teams Bass String Winder Relationship Specialty Start Date End Date Niki Ramos MD [address] [place] [address] PCP - General Family Medicine 03/24/18 documented as of this encounter
--- OUTSIDE RECORDS SUMMARY | 2024-08-08 10:27 | XMS_ITS | Encounter Summary ---
Author Organization [employer] Address [address] [facility] [address] [place] [address] Care Team Providers Care Fertilizer Processing Supervisor Name Role Phone Niki Ramos MD Primary Care Provide r Encounter Details Date Type Department Care Team (Late st Contact Info) Description 06/22/2022 Abstract [facility] [address] [place] [address] Sachin Chow, DMD [address] [place] [address] Social History Tobacco Use Types Packs/Day Years [...] suspected to have Coronavirus/COVID-19? No / Unsure 06/23/2022 1:56 PM EST documented as of this encounter Plan of Treatment Upcoming Encounters Date Type Department Care Team (Late st Contact Info) Description 08/24/2024 10:00 AM EST Office Visit [facility] [address] [place] [address] Sundeep Felipe, DMD [address] [place] [address] documented as of this encounter Visit Diagnoses Not on filedocumented in this encounter Care Teams Fertilizer Processing Supervisor Relationship Specialty Start Date End Date Niki Ramos MD [address] [place] [address] PCP - General Family Medicine 03/24/18 documented as of this encounter
--- OUTSIDE RECORDS SUMMARY | 2024-08-08 10:27 | XMS_ITS | Encounter Summary ---
Author Organization [employer] Address [address] [facility] 7[address] [place] [address] Care Team Providers Care Motorcoach Operator Name Role Phone Niki Ramos MD Primary Care Provide r Encounter Details Date Type Department Care Team (Late st Contact Info) Description 09/03/2022 Abstract [facility] [address] [place] [address] Sundeep Felipe, DMD [address] [place] [address] Social History Tobacco Use Types Packs/Day Years [...] suspected to have Coronavirus/COVID-19? No / Unsure 08/28/2022 7:54 AM EST documented as of this encounter Plan of Treatment Upcoming Encounters Date Type Department Care Team (Late st Contact Info) Description 08/24/2024 10:00 AM EST Office Visit [facility] [address] [place] [address] Sundeep Felipe, DMD [address] [place] [address] documented as of this encounter Visit Diagnoses Not on filedocumented in this encounter Care Teams Motorcoach Operator Relationship Specialty Start Date End Date Niki Ramos MD [address] [place] [address] PCP - General Family Medicine 03/24/18 documented as of this encounter
== END 2024-08-08 11:19 | disposition home or self-care (01) ==
PROVIDERS: PCP Internal Medicine; Visit Provider Urology
DX: N40.1 Benign prostatic hyperplasia with lower urinary tract symptoms (principal); N13.8 Other obstructive and reflux uropathy; R97.20 Elevated prostate specific antigen [PSA]; Z13.9 Encounter for screening, unspecified
CPT/HCPCS: 99214

== ENCOUNTER → 2024-08-08 09:49 | Outpatient (BNVA) | payer OTHER, SELFPAY | PROVIDERS: PCP Internal Medicine; Visit Provider Urology | DX: N40.1 Benign prostatic hyperplasia with lower urinary tract symptoms (principal); R97.20 Elevated prostate specific antigen [PSA]; N13.8 Other obstructive and reflux uropathy | CPT/HCPCS: 81003; 99212 ==

== ENCOUNTER 2024-08-23 08:13 | Outpatient (AMB) | payer OTHER, SELFPAY ==
--- OUTSIDE RECORDS SUMMARY | 2024-08-23 08:18 | XMS_ITS | Data Portability ---
Author Organization [employer] [facility], Or in - [facility]ly [facility] Address [address] [place] [id number] Care Team Providers Care Lace Roller Name Role Phone [facility] Referring Provider Assessment Encounter Date Assessment Date Assessment LastModified by Organization Details LastModified Time 05/20/2022 05/20/2022 I have reviewed and agree with the Assessment and Plan as documented by the Senior Administrator Support. I provided real -time medical direction via phone for this encounter, and was available for additional phone based assistance as needed. Patient given the opportunity to ask questions. [email or web address] Not available 05/20/2022 13:49:00 Plan of Treatment Reminders Order Date Submit Date Provider Last Modified By Organization Details Last Modified Time Details Appointments None recorded. Lab urinalysis , dipstick [email or web address] [facility], [address] [place] [address], [phone], 13:53:37 culture, urine 2021 [place] [facility], [address] [place] [address], [id number], 08:07:02 Referral None recorded. Procedures None recorded. Surgeries None recorded. Imaging None recorded. Medication Orders Levaquin [address] [facility], [address] [place] [address], [id number], 14:01:24 Levaquin 500 mg tablet 2021 [email or web address] 0 Not available 13:53:37 Pyridium [address] [facility], [address] [place] [address], [id number], 14:01:24 Patient TargetsNo targets recorded. Patient InstructionsNo instructions recorded. Reason for Referral None Reported. Results Created Date Observation Date Name Description Value Unit Range Abnormal Flag Note LastModifiedBy Organization Detail LastModifiedTime 05/20/20 22 05/21/2022 URINE CULTU RE specimen description CLEAN CATCH (URINE ) Not Available [facility] [address], [id number], 05/22/2022 08:06:59 05/20/20 22 05/21/2022 URINE CULTU RE special requests NONE Not Available [facility] [address], [id number], 05/22/2022 08:06:59 05/20/20 22 05/22/2022 URINE CULTU RE culture NO GROWTH Not Available [facility] [address], [id number], 05/22/2022 08:06:59 05/20/20 22 05/22/2022 URINE CULTU RE report status FINAL 2021 Not Available [facility] [address], [id number], 05/22/2022 08:06:59 05/20/20 22 05/20/2022 urina lysis , dipst ick Leukocytes trace Not Available [facility] [address] [place] [address], [phone], 05/20/2022 13:48:42 05/20/20 22 05/20/2022 urina lysis , dipst ick Nitrite negati ve Not Available [facility] [address] [place] [address], [phone], 05/20/2022 13:48:42 05/20/20 22 05/20/2022 urina lysis , dipst ick Urobilinogen neg Not Available [facility] [address] [place] [address], [phone], 05/20/2022 13:48:42 05/20/20 22 05/20/2022 urina lysis , dipst ick Protein trace Not Available [facility] [address] [place] [address], [phone], 05/20/2022 13:48:42 05/20/20 22 05/20/2022 urina lysis , dipst ick pH 6 Not Available [facility] [address] [place] [address], [phone], 05/20/2022 13:48:42 05/20/20 22 05/20/2022 urina lysis , dipst ick Blood 50 rbc Not Available [facility] [address] [place] [address], [id number], 05/20/2022 13:48:42 05/20/20 22 05/20/2022 urina lysis , dipst ick Specific [place] 1.010 Not Available [facility] [address] [place] [address], [phone], 05/20/2022 13:48:42 05/20/20 22 05/20/2022 urina lysis , dipst ick Ketone neg Not Available [facility] - [facility] [address], [phone], 05/20/2022 13:48:42 05/20/20 22 05/20/2022 urina lysis , dipst ick Bilirubin neg Not Available [facility] [address] [place] [address], [phone], 05/20/2022 13:48:42 05/20/20 22 05/20/2022 urina lysis , dipst ick Glucose neg Not Available [facility] [address] [place] [address], [phone], 05/20/2022 13:48:42 05/20/20 22 05/20/2022 urina lysis , dipst ick Appearance sl cloudy Not Available [facility] [address] [place] [address], [phone], 05/20/2022 13:48:42 05/20/20 22 05/20/2022 urina lysis , dipst ick Color pink Not Available [facility] [address] [place] [address], [place], [phone], 05/20/2022 13:48:42 Result Notes None recorded. Medical Equipment None Reported. Allergies Allergen ID Allergen Name Allergen Category Reaction Reaction Severity Criticality Documentation Date Start Date Code Code System Note Provider Name and Address Organization Details Recorded Time 1313 acetamino phen / oxycodone medicatio n Not available Not available Not available 05/20/2022 52061 3 RxNorm Michelle Sharif MD [address] [place] [address],[address], [place], [phone], [facility] - Validroid 2 13:46:59 8126 acetamino phen medicatio n [...] Not Available No t Available [facility] 10 billion cell-200 mg [...] Details Last Updated DateTime 2 98.3 [degF] 89251.5 36 g 67 /min 96 % 96 % 18 /min 167.64 cm 98.3 [degF] 96 % 96 % 18 /min 67 /min 167.64 cm 14879.5 36 g 123 mm[Hg] 85 mm[Hg] 123 [...] 5372 Michelle Sharif MD [facility] - [facility] [address] [place] [phone] 05/20/2022 13:39:36 05/22/2022 12:40:50 Acute urinary tract infection 371623683 N39.0 advised to push fluids- f/u with [...] Riojas Member ID Guarantor Name 05/20/2022 1 [facility] - DOS PRIOR TO 2022 - DUAL ELIGIBLE (MEDICARE REPLACEMENT/ADV ANTAGE - HMO) Jayesh Che [id number] Jayesh Che Notes Date Note Type Note Provider Name and Address Organization Details Recorded Time 05/20/2022 text/html HPI: 72 year old, [place] speaking male, reporting dysuria with penile pain [...] to process visit SEGMD: Pt interviewed w/ abrasive coating machine operator- only has penile pain inside when he [...] .................... .................... .................... .................... .................... .................... ...... Senior Administrator Support Note: Sent to a call for a pt complaining of dysuria and penile pain x 2-3 days. SC8 arrives on scene, pt is alert and oriented. Airway is patent. Pt's primary language is [place]; senior commissary agent line used during visit. Pt complains of [...] clear, concentrated; Urine dip: results uploaded to [employer]. [facility] orders Levofloxacin 500mg PO and urine culture to be sent to [facility]. Pt advised to take Tylenol 500mg q 6hrs prn, increase oral hydration, and follow up with urologist. Levofloxacin administered without incident. [facility] sends script to pt's pharmacy for Levofloxacin and Pyridium. Red flags discussed. Pt has no further questions. .................... .................... .................... .................... .................... .................... .................... . Disposition: Fulfilled Michelle Sharif MD [address] [facility],[address], [place], [phone], ANGÉLICA GONZALEZ 05/20/2022 14:33:50
[2024-08-23 09:06] VITALS: BP 119/70; PULSE 87; O2SAT 96; BMI 24.9
--- NOTE | 2024-08-23 09:06 | A.OFFVIS_ITS ---
Vital Signs 08/23/24 09:06 Height 5 ft 6 in Weight 154 lb 5.177 oz BMI 24.9 BP 119/70 Blood Pressure Location Rt brachial Position Sitting Pulse 87 Pulse Source Doppler Pulse Oximetry (%) 96 Oxygen Delivery Method Room Air Intake Visit Reasons: MAGUIRE Allergies oxycodone [From PERCOCET] Allergy (Unknown, Verified 08/23/24 09:13) HIVES HPI HPI MAGUIRE: Details: 74-year-old gentleman, former at least 30 pack-year smoker, quit 2010 now followed for severe COPD. Patient had his pulmonary function test that showed severe to very severe COPD. He has been using his BrezTri and albuterol MDI with good control of his symptoms. He denies recent exacerbations. He still gets intermittent dyspnea episodes associated with chest pressure. He is followed by Cardiology service. [facility] Medical History Vitamin D deficiency Hematuria PVD (peripheral vascular disease) Esophageal dysphagia BPH loc w urin obs/LUTS Asthma HTN (hypertension) Surgical History Hx of colonoscopy History of surgery Hx of prostatectomy Family History Father No problems noted. Mother No problems noted. Social History Alcohol intake: former Patient Tobacco Use Status: Former Tobacco user Years Smoked: started in his 20's, quit 13 years ago Review of Systems Const Denies daytime sleepiness, Denies excessive sweating, Denies fatigue, Denies fever(s), Denies lethargy, Denies malaise, Denies night sweats, Denies snoring and Denies weight loss Eyes Denies blurry vision and Denies itchy eyes ENT Denies nasal congestion, Denies post nasal drip, Denies sinus pain, Denies sinus pressure and Denies other ( Thrush) Card Denies chest pain, Denies pedal edema, Denies dyspnea, Reports dyspnea on exertion, Denies orthopnea and Denies paroxysmal nocturnal dyspnea Resp Denies cough, Denies hemoptysis, Denies excessive phlegm production, Denies dyspnea, Reports dyspnea on exertion, Denies snoring and Denies wheezing GI Denies abdominal pain and Denies heartburn Musc Denies myalgias, Denies arthralgias and Denies joint swelling Skin/Breast Denies rash Neuro Denies memory loss and Denies seizure-like activity Psych Denies abnormal sleep pattern, Denies anxiety and Denies memory loss Endo Denies excessive sweating, Denies fatigue and Denies heat intolerance Amari/Lymph Denies easy bruising Aller/Immun Denies itchy eyes, Denies seasonal rhinorrhea and Denies wheezing Physical Exam Vital Signs: Last Vital Signs Pulse 87 08/23/24 09:06 BP 119/70 08/23/24 09:06 Pulse Ox 96 08/23/24 09:06 Oxygen Delivery Method Room Air 08/23/24 09:06 BMI result Body Mass Index 24.9 Const General: no acute distress and alert Nutritional Appearance: not obese Orientation/consciousness: Other orientation findings ( oriented) HEENT Head: Yes atraumatic Eyes General: appearance normal, both eyes and all related structures Sclerae: sclerae normal EOM: EOMs intact bilaterally Neck Neck: Yes supple Lymphatic: no lymphadenopathy noted Resp Effort & Inspection: normal respiratory effort and no use of accessory muscles Auscultation: clear to auscultation bilaterally Cardio Rate: regular rate Rhythm: regular rhythm Heart sounds: no gallops, no murmurs and no rubs Skin General skin exam: other ( warm) Extrem General: No clubbing, No cyanosis and No edema Assessment & Plan Assessment & Plan (1) COPD (chronic obstructive pulmonary disease): Code(s): J44.9 - Chronic obstructive pulmonary disease, unspecified Category: Medical Plan: Well controlled current regimen BrezTri and albuterol MDI. Continue regimen. (2) Personal history of nicotine dependence: Code(s): Z87.891 - Personal history of nicotine dependence Category: Medical Plan: Results of lung cancer screening CT chest reviewed, no worrisome nodules, continue with yearly screening, next in June of 2025. Coding Level of Care Code Est Pt Level 4 (28745) Diagnoses COPD (chronic obstructive pulmonary disease) J44.9 Personal history of nicotine dependence Z87.891
== END 2024-08-23 09:32 | disposition home or self-care (01) ==
PROVIDERS: PCP Internal Medicine; Visit Provider Internal Medicine Pulmonary Disease
DX: J44.9 Chronic obstructive pulmonary disease, unspecified (principal); Z87.891 Personal history of nicotine dependence
CPT/HCPCS: 99214

== ENCOUNTER → 2024-08-23 08:13 | Outpatient (BNVA) | payer OTHER, SELFPAY | PROVIDERS: PCP Internal Medicine; Visit Provider Internal Medicine Pulmonary Disease | DX: J44.9 Chronic obstructive pulmonary disease, unspecified (principal); Z87.891 Personal history of nicotine dependence | CPT/HCPCS: 99212 ==

== ENCOUNTER 2024-09-04 07:57 | Outpatient (REF) | payer OTHER, SELFPAY ==
--- OUTSIDE RECORDS SUMMARY | 2024-09-04 08:03 | XMS_ITS | Clinical Summary ---
Author Organization [employer] Address [address] [facility] 7t [place] [address] Care Team Providers Care Rotary Driller Name Role Phone Niki Ramos MD Primary [...] TWICE DAILY. RINSE MOUTH AFTER USING. 02/06/20 22 Active finasteride (Proscar) 5 MG tablet Take 1 tablet by mouth Once per day. 06/09/20 24 Active ipratropium-albut uriel (Duo-Neb) 0.5-2.5 mg/3 mL nebulizer solution Take 3 mL by nebulization in the morning, at noon, and at bedtime. 05/22/20 24 Active levoFLOXacin (Levaquin) 750 MG tablet Take 1 tablet by mouth Once per day. Active hydrOXYzine HCl (Atarax) 25 MG tabletIndications :Pruritus Take 1 tablet (25 mg) by mouth if needed at bedtime for itching. 30 tablet 09/01/19 25 025 Active Active Problems Problem Noted Date Diagnosed [...] Blurry vision 10/04/2023 Colon cancer screening 07/12/2023 Assessment & Plan (09/01/2024 4:18 PM EST): Patient is scheduled for a colonoscopy Pruritus 07/12/2023 Assessment & Plan (09/01/2024 4:17 PM EST): Labs ordered today patient will be contacted with results I will prescribe for patient hydroxyzine at bedtime for the itchiness Assessment & Plan (07/12/2023 12:27 PM EST): I will refer him to radiological equipment specialist Allergy 07/12/2023 Dyspnea on exertion 01/12/2023 [...] patient to cardiology Benign prostatic hyperplasia 09/24/2022 Assessment & Plan (09/01/2024 4:18 PM EST): Patient reports he has been followed by urology and he scheduled for a procedure and is currently down to evaluate for colonoscopy, I advised to follow-up with specialists and do not miss any appointment Bloating symptom 09/24/2022 Chronic gastritis 09/24/2022 Gastroesophageal [...] with psychiatrist and therapist Visual impairment 09/24/2022 Adenomyomatosis of gallbladder 01/19/2020 Gallstone 09/17/2017 Kidney stone 09/17/2017 Essential hypertension 08/03/2017 Assessment & Plan (09/01/2024 4:17 PM EST): Blood pressure seems to be under control, I advised low-sodium diet Continue with same interventions Assessment & Plan (03/02/2024 11:57 AM EDT): [...] without urinary obstruction 07/07/2017 Mood disorder 07/07/2017 Assessment & Plan (09/01/2024 4:18 PM EST): Continue to follow-up with therapist and psychiatrist Onychomycosis 07/07/2017 Hypertriglyceridemia 09/08/2016 Vitamin D deficiency [...] benefit from continued OP therapy, psychiatry and [facility] respite. At this time Jayesh Che meets criteria for Visit Diagnoses: Problem List Items Addressed This Visit Other Generalized anxiety disorder Patient ready to address current needs Yes Strengths- Jayesh is engaged in OP therapy and psychiatry services and in the active stage for change. PLAN: 1. Follow up with [facility]: Not recommended for follow-up 2. Patient goal is to continue OP therapy and explore additional coping mechanisms. 3. Behavioral Recommendations a. OP therapy b. Coping mechanisms- deep breathing C. 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 [address] [place] [phone] Niki Ramos MD Pruritus (Primary Dx); Mood disorder (CMS/HCC); Essential hypertension; Colon cancer screening; Benign prostatic hyperplasia with lower urinary tract symptoms, symptom details unspecified 09/01/2024 Travel 08/31/2024 Orders Only [facility] [address] [place] [address] Niki Ramos MD 08/31/[address] [facility] [address] [place] [phone] Niki Ramos MD Medication Question 08/24/2024 10:00 AM EST Office Visit [facility] ADULT DENTAL [address] [place] [address] Sundeep Felipe DMD 07/10/2024 10:00 AM EST Office Visit [facility] ADULT DENTAL [address] [place] [address] Sundeep Felipe DMD 06/26/2024 Orders Only [facility] External Provider, [facility] 06/22/2024 Orders Only GENERIC EXTERNAL DATA DEPARTMENT Provider, Generic External Data 06/16/2024 2:30 PM EST Office Visit [facility] ADULT DENTAL [address] [place] [address] Sundeep Felipe DMD from Last 3 Months Immunizations Name Administration [...] Sign Reading Time Taken Comments Blood Pressure 126/80 09/01/2024 10:17 AM EST Pulse 82 09/01/2024 10:17 AM EST Temperature 37.1 ??C (98.7 ??F) 09/01/2024 10:[address] Respiratory Rate 14 09/01/2024 10:17 AM EST Oxygen Saturation 96% 05/01/2024 2:42 PM EDT Inhaled Oxygen Concentration - - Weight 69.1 kg (152 lb 6.4 oz) 09/01/2024 10:17 AM EST Height 160 cm (5' 3 ) 09/01/2024 10:17 AM EST Body Mass Index 27 09/01/2024 10:17 AM EST Plan of Treatment Health Maintenance Due Date Last Done Comments [...] Depression Screening 10/03/2024 10/04/2023, 10/04/19 Tobacco Screening 08/24/2025 08/24/2024 DTaP/Tdap/Td Vaccines (2 - Td or Tdap) [...] Procedure Name Priority Date/Time Associated Diagnosis Comments CASE PRESENTATION, DETAILED AND EXTENSIVE TREATMENT PLANNING Routine 08/24/2024 10:00 AM EST 2,3,15,6 MAXILLARY PARTIAL DENTURE - FLEXIBLE BASE (INCLUDING ANY CLASPS, RESTS AND TEETH) Routine 08/24/2024 10:00 AM EST WAX TRY IN Routine 07/10/2024 10:00 AM EST LDCT LUNG SCREENING Routine 06/26/2024 8 :49 AM EST PSA, FREE AND TOTAL Routine 06/22/2024 8 :58 AM EST PSA, TOTAL WITH REFLEX TO PSA, FREE Routine 06/22/2024 7:57 AM EST BITE REGISTRATION Routine 06/16/2024 2:3 0 PM EST DENTURE IMPRESSION Routine 06/16/2024 2: 30 PM EST LIPID PANEL, STANDARD Routine 10/04/2023 10:15 AM [...] EST Narrative 07/19/2024 10:37 AM EST ? [facility] ?[address] ?[place] [address] ? CT Scan Report ? Signed ? Patient: Che,Jayesh ?MR#: [id number] ?? 6 ? : 1950 ?Acct:[id number] ? Age/Sex: 74 / M ?ADM Date: 12/23/24 ? Loc: HO.CT ? Attending Dr: Dm Moraes MD ? Ordering Physician: Dm Moraes MD ?? Date of Service: 06/26/24 ?? Procedure(s): CT lung screening ?? Accession Number(s): [id number] ? cc: Niki Ramos MD; Dm Moraes MD ? Report Number: ?? [id number]: Total DLP = ?? 52.00 mGy-cm ?? [...] DD/ 0849 ? TD/TT: 06/26/24 0855 ? Commercial Sewing Instructor: MSM ? Procedure Note Emely, Vik - 07/19/[address] [place] [address] [address] Scan Report Signed Patient: Jayesh CheMR#: [id number] 6 : 1950Acct:[id number] Age/Sex: 74 / MADM Date: 06/26/24 Loc: HO.CT Attending Dr: Dm Moraes MD Ordering Physician: mD Moraes MD Date of Service: 06/26/24 Procedure(s): CT lung screening Accession Number(s): [id number] cc: Niki Ramos MD; Dm Moraes MD Report Number: [id number]: Total DLP = 52.00 mGy-cm EXAMINATION: CT [...] 07/19/24 1034 DD/ 0849 TD/TT: 06/26/24 0855 Commercial Sewing Instructor: SHELLEY [facility] External Provider IMG CT PROCEDURES Final Result * (ABNORMAL) PSA, Free and Total (06/22/2024 8:58 AM EST) PSA, Total 10.7(A) < OR = 4.0 ng/mL [facility] PSA % Free NOT CALCULATED >25 % (calc) [facility] Comment: PSA(ng/mL) ?Free PSA(%) ? Estimated(x) Probability ? of Cancer(as%)0-2.5 ?(*) ? Approx. 12.6-4.0(1) ? 0-27(2) ? 24(3)4.1-10(4) ?0-10 ?56 ? 11-15 ? 28 ? 16-20 ? 20 ? 21-25 ? 16 ? >or =26 ? 8>10(+) ? N/A ?>50References:(1)Boy.:Urology 60: 469-474 (2002) ? (2)Sangita aguilar al.:J.Urol 168: 922-925 (2002) ?Free PSA(%) ?? Sensitivity(%) ??Specificity(%) ?< or = 25 ?85 ?19 ?< or = 30 ?93 ? 9 ? (3)Sangita et al.:TRICE 277: 7740-1587 (1996) ? (4)Brisaona et al.:TRICE 279: 1480-2150 (1997)(x)These estimates vary with age, ethnicity, family [...] presence or absence ofdisease.THIS TEST WAS PERFORMED AT:[facility] [place] [address] ??[phone] LORENZANA MD PSA, Free 1.4 ng/mL [facility] 06/22/2024 8:58 AM EST 06/22/2024 8:58 AM EST us Generic External Data Provider LAB BLOOD ORDERAB LES Final Result Performing Organization Address City/State/[facility] Co de Phone Number [facility] [address] [place] [address] [phone] * (ABNORMAL) PSA, Total With Reflex to PSA, Free (06/22/2024 7:57 AM EST) PSA,Total (Free>4and<10) 9.86(H) 0.00 - 4.00 ng/mL [facility] Comment:PSA methodology: [place] i ChemiluminescentMicroparticle Immunoassay (CMIA) 06/22/2024 7:57 AM EST 06/22/2024 8:03 AM EST us Generic External Data Provider LAB BLOOD ORDERAB LES Final Result [facility] [address] [place] [address] [phone] * (ABNORMAL) Lipid Panel, Standard (10/04/2023 10:15 AM EDT) Triglycerides 128 <150 mg/dL [facility] Comment:Desirable Triglyceri de: less than 150 mg/dLBorderline High Triglyceride 150-199 mg/dLHigh Triglyceride: 200-499 mg/dLVery High Triglyceride: greater than or equal to 5OO mg/dL Cholesterol 211(H) <200 mg/dL [facility] Comment:Desirable Cholestero l: less than 200 mg/dLBorderline High Cholesterol: 200-239 mg/dLHigh Cholesterol: greater than 239 mg/dL LDL Cholesterol Calculated 136(H) <100 mg/dL [facility] Comment:Desirable LDL: less than 100 mg/dLNear Optimal/Above Optimal LDL: 110- 129 mg/dLBorderline High LDL: 130-159 mg/dLHigh LDL: 160-189 mg/dLVery High LDL: greater than or equal to 190 mg/dL HDL Cholesterol 50 >40 mg/dL [facility] Comment:Desirable HDL: great er than 40 mg/dL Note: This HDL assay may give artificially low results in patients with liver disease. Blood Venous blood specimen / Unknown 10/04/2023 10:15 AM EDT 10/04/2023 11:15 AM EDT Niik Simmons MD LAB BLOOD ORDERABLES Final Result [facility] [address] [place] [address] [phone] * Hepatitis C Antibody with Reflex to HCV, RNA, Quantitative, Real-Time PCR (09/29/2022 8:02 AM EDT) Hepatitis C Antibody NON-REACT RODERICK NON-REACT RODERICK [facility] Index 0.04 <1.00 [facility] Comment: HCV antibody was non-reactive. There is no laboratory evidence of HCV infection. In most cases, no further action is required. However, if recent HCV exposure is suspected, a test for HCV RNA (test code 36375) is suggested. For additional information please refer to http://education.[employer]/faq/VCQ60l0 (This link is being provided for informational/ educational purposes only.) Blood Venous blood specimen / Unknown 09/29/2022 8:02 AM EDT 09/29/2022 8:03 AM EDT Narrative [facility] - 09/30/2022 12:55 AM EDT FASTING:YES FASTING: YES Niki Simmons MD LAB BLOOD ORDERABLES Final Result Performing Organization Address City/[facility] Co de Phone Number [facility] [address], [place] [address] [facility] [address] [place] [phone] * Hm Colonoscopy (03/07/2020) Historical Provider HEALTH MAINTENANCE Final Result from Last 3 Months or Most Recently Relevant to Health Maintenance Insurance - [facility] Care Teams Rotary Driller Relationship Specialty Start Date End Date Niki Ramos MD [address] [place] [address] PCP - General Family Medicine 03/24/18
--- OUTSIDE RECORDS SUMMARY | 2024-09-04 08:03 | XMS_ITS | Encounter Summary ---
Author Organization [employer] Address [address] [facility] 7t [place] [address] Care Team Providers Care Machine Deburrer Name Role Phone Niki Ramos MD Primary Care Provide r Encounter Details Date Type Department Care Team (Late st Contact Info) Description 03/12/[address] [facility] [address] [place] [address] Provider, Yao, Social History Tobacco Use Types Packs/Day Years [...] as of this encounter Plan of Treatment Not on file documented as of this encounter Procedures Procedure Name Priority Date/Time Associated Diagnosis Comments HM COLONOSCOPY Routine 03/07/2020 documented in this encounter Results * Hm Colonoscopy (03/07/2020) Historical Provider HEALTH MAINTENANCE Final Result documented in this encounter Visit Diagnoses Not on filedocumented in this encounter Additional Health Concerns Assessment Noted Time PHQ-9 Depression Total Score: 8 09/26/19 23 9:12 AM EDT documented as of this encounter Care Teams Machine Deburrer Relationship Specialty Start Date End Date Niki Ramos MD [address] [place] [address] PCP - General Family Medicine 03/24/18 documented as of this encounter
--- OUTSIDE RECORDS SUMMARY | 2024-09-04 08:03 | XMS_ITS | Encounter Summary ---
Author Organization [employer] Address [address] [facility] [address] 7t [place] [address] Care Team Providers Care Heating And Air Conditioning Mechanic Name Role Phone Niki Ramos MD Primary Care Provide r Encounter Details Date Type Department Care Team (Late st Contact Info) Description 02/19/2023 Orders Only [facility] [address] [place] [address] Janelle Jones LPN Social History Tobacco Use [...] on file documented as of this encounter Visit Diagnoses Not on filedocumented in this encounter Additional Health Concerns Assessment Noted Time PHQ-9 Depression Total Score: 8 09/26/19 23 9:12 AM EDT documented as of this encounter Care Teams Heating And Air Conditioning Mechanic Relationship Specialty Start Date End Date Niki Ramos MD [address] [place] [address] PCP - General Family Medicine 03/24/18 documented as of this encounter
--- OUTSIDE RECORDS SUMMARY | 2024-09-04 08:04 | XMS_ITS | Encounter Summary ---
Author Organization [employer] Address [address] [facility] 7t [place] [address] Care Team Providers Care Corporate Quality Assurance Manager Name Role Phone Niki Ramos MD Primary Care Provide r Encounter Details Date Type Department Care Team (Latest Contact Info) Description 11/08/2018 Abstract [facility] CONVERSIONS Dental, Provider, DDS Social History [...] on filedocumented in this encounter Care Teams Corporate Quality Assurance Manager Relationship Specialty Start Date End Date Niki Ramos MD [address] [place] [address] PCP - General Family Medicine 03/24/18 documented as of this encounter
--- OUTSIDE RECORDS SUMMARY | 2024-09-04 08:04 | XMS_ITS | Encounter Summary ---
Author Organization [employer] Address [address] [facility] 7t [place] [address] Care Team Providers Care Simulation Engineer Name Role Phone Niki Ramos MD Primary Care Provide r Reason for Visit * Reason Onset Date Comments Medication Question 08/31/2024 Encounter Details Date Type Department Care Team ([facility] st Contact Info) Description 08/31/2024 Telephone [facility] [address] [place] [address] Niki Ramos MD [address] [place] [address] Medication Question Social History Tobacco Use Types Packs/Day Years [...] AM EDT documented as of this encounter Miscellaneous Notes * Telephone Encounter - Danuta De Los Santos RN - 08/31/2024 3:47 PM EST TC returned to Magali [phone] to inform the zolpidem medication is NOT rx'd by PCP. Magali advised to contact psychiatry office (Aarti Wynn) to further discuss. Magali verbalized understanding. Magali to f/u PRN. * Telephone Encounter - Denilson Davison - 08/31/2024 11:01 AM EST TC from [facility] a ENVIRONMENTAL ENGINEERING AIDE with [employer] wanting to discuss Zolpidem .. Pt reports although takes as prescribedmedication doesn't really due much for him . Magali states given patients age and risk factor , script should be canceled and patient should be prescribed melatonin if he has not already tried it . Magali would like an update so she may update patients chart aswell. Magali [phone] documented in this encounter Plan of Treatment Not on file documented as of this encounter Visit Diagnoses Not on filedocumented in this encounter Additional Health Concerns Assessment Noted Time PHQ-9 Depression Total Score: 0 10/04/19 24 9:42 AM EDT documented as of this encounter Care Teams Simulation Engineer Relationship Specialty Start Date End Date Niki Ramos MD [facility] [place] [address] PCP - General Family Medicine 03/24/18 documented as of this encounter
--- OUTSIDE RECORDS SUMMARY | 2024-09-04 08:04 | XMS_ITS | Encounter Summary ---
Author Organization [employer] Address [address] [facility] 7t [place] [address] Care Team Providers Care Active Directory Specialist Name Role Phone Niki Ramos MD Primary Care Provide r Encounter Details Date Type Department Care Team (Late st Contact Info) Description 09/03/2022 Abstract [facility] ADULT DENTAL [address] [place] [address] Sundeep Felipe, ROBERTO [address] [place] [address] Social History Tobacco Use Types Packs/Day Years [...] on filedocumented in this encounter Care Teams Active Directory Specialist Relationship Specialty Start Date End Date Niki Ramos MD [address] [place] [address] PCP - General Family Medicine 03/24/18 documented as of this encounter
--- OUTSIDE RECORDS SUMMARY | 2024-09-04 08:04 | XMS_ITS | Encounter Summary ---
Author Organization [employer] Address [address] [facility] [address]t [place] [address] Care Team Providers Care Vehicle Check In Clerk Name Role Phone Niki Ramos MD Primary Care Provide r Encounter Details Date Type Department Care Team (Latest Contact Info) Description 04/09/2022 Abstract [facility] CONVERSIONS Dental, Provider, DDS Social History Tobacco [...] on filedocumented in this encounter Care Teams Vehicle Check In Clerk Relationship Specialty Start Date End Date Niki Ramos MD [address] [place] [address] PCP - General Family Medicine 03/24/18 documented as of this encounter
--- OUTSIDE RECORDS SUMMARY | 2024-09-04 08:04 | XMS_ITS | Encounter Summary ---
Author Organization [employer] Address [address] [facility] [address] [place] [address] Care Team Providers Care Purchasing Officer Name Role Phone Niki Ramos MD Primary Care Provide r Encounter Details Date Type Department Care Team (Late st Contact Info) Description 08/31/2024 Orders Only [facility] [address] [place] [address] Niki Ramos MD [address] [place] [address] Social History Tobacco Use Types Packs/Day Years [...] Time PHQ-9 Depression Total Score: 0 10/04/19 9:42 AM EDT documented as of this encounter Care Teams Purchasing Officer Relationship Specialty Start Date End Date Niki Ramos MD [address] [place] [phone] PCP - General Family Medicine 03/24/18 documented as of this encounter
--- OUTSIDE RECORDS SUMMARY | 2024-09-04 08:04 | XMS_ITS | Data Portability ---
Author Organization [employer] [facility], [place] - [facility] Address [address] [place] [id number] Care Team Providers Care Studio Coordinator Name Role Phone [facility] Referring Provider [phone] Assessment Encounter Date Assessment Date Assessment LastModified by Organization Details LastModified Time 05/20/2022 05/20/2022 I have reviewed and agree with the Assessment and Plan as documented by the Treatment Technician. I provided real -time medical direction via phone for this encounter, and was available for additional phone based assistance as needed. Patient given the opportunity to ask questions. [email or web address] Not available 05/20/2022 13:49:00 Plan of Treatment Reminders Order Date Submit Date Provider Last Modified By Organization Details Last Modified Time Details Appointments None recorded. Lab urinalysis , dipstick 2021 [email or web address] 0 [facility], [address] [place] [address], [phone], 13:53:37 culture, urine 2021 [place] [facility] (Centralized Electronic Ordering - All Locations), Patient Can Go To The Location Of Their Choice, [id number] 08:07:02 Referral None recorded. Procedures None recorded. Surgeries None recorded. Imaging None recorded. Medication Orders Levaquin 500 mg tablet 2021 [facility], [address] [place] [address], [id number], 14:01:24 Levaquin 500 mg tablet 2021 [email or web address] 0 Not available 13:53:37 Pyridium 100 mg tablet 2021 [facility], [address] [place] [address], [id number], 14:01:24 Patient TargetsNo targets recorded. Patient InstructionsNo instructions recorded. Reason for Referral None Reported. Results Created Date Observation Date Name Description Value Unit Range Abnormal Flag Note LastModifiedBy Organization Detail LastModifiedTime 05/20/2005/21/2022 URINE CULTU RE specimen description CLEAN CATCH (URINE ) Not Available [facility] (Centralized Electronic Ordering - All Locations) Patient Can Go To The Location Of Their Choice, [facility] 05/22/2022 08:06:59 05/20/20 22 05/21/2022 URINE CULTU RE special requests NONE Not Available [facility] (Centralized Electronic Ordering - All Locations) Patient Can Go To The Location Of Their Choice, [facility] 05/22/2022 08:06:59 05/20/2005/22/2022 URINE CULTU RE culture NO GROWTH Not Available [facility] (Centralized Electronic Ordering - All Locations) Patient Can Go To The Location Of Their Choice, [facility] 05/22/2022 08:06:59 05/20/2005/22/2022 URINE CULTU RE report status FINAL 2021 Not Available [facility] (Centralized Electronic Ordering - All Locations) Patient Can Go To The Location Of Their Choice, [facility] 05/22/2022 08:06:59 05/20/2005/20/2022 urina lysis , dipst ick Leukocytes trace Not Available Main - [address], [phone], 05/20/2022 13:48:42 05/20/20 22 05/20/2022 urina lysis , dipst ick Nitrite negati ve Not Available Main - [facility] [address] [place] [address], [phone], 05/20/2022 13:48:42 05/20/20 22 05/20/2022 urina lysis , dipst ick Urobilinogen neg Not Available [facility] [address] [place] [address], [phone], 05/20/2022 13:48:42 05/20/20 22 05/20/2022 urina lysis , dipst ick Protein trace Not Available Main - [facility] [address] [place] [address], [phone], 05/20/2022 13:48:42 05/20/20 22 05/20/2022 urina lysis , dipst ick pH 6 Not Available Main - [facility] [address] [place] [address], [phone], 05/20/2022 13:48:42 05/20/20 22 05/20/2022 urina lysis , dipst ick Blood 50 rbc Not Available Main - [facility] [address] [place] [address], [address], 05/20/2022 13:48:42 05/20/20 22 05/20/2022 urina lysis , dipst ick Specific [place] 1.010 Not Available Main - [facility] [address] [place] [address], [address], 05/20/2022 13:48:42 05/20/20 22 05/20/2022 urina lysis , dipst ick Ketone neg Not Available Main - [facility] [address] [place] [address], [phone], 05/20/2022 13:48:42 05/20/20 22 05/20/2022 urina lysis , dipst ick Bilirubin neg Not Available Main - [facility] [address] [place] [address], [phone], 05/20/2022 13:48:42 05/20/20 22 05/20/2022 urina lysis , dipst ick Glucose neg Not Available Main - [facility] [address] [place] [address], [phone], 05/20/2022 13:48:42 05/20/20 22 05/20/2022 urina lysis , dipst ick Appearance sl cloudy Not Available Main - [facility] [address] [place] [address], [phone], 05/20/2022 13:48:42 05/20/20 22 05/20/2022 urina lysis , dipst ick Color pink Not Available Main - [facility] [address] [place] [address], [place], [address], 05/20/2022 13:48:42 Result Notes None recorded. Medical Equipment None Reported. Allergies Allergen ID Allergen Name Allergen Category Reaction Reaction Severity Criticality Documentation Date Start Date Code Code System Note Provider Name and Address Organization Details Recorded Time 1313 acetamino phen / oxycodone medicatio n Not available Not available Not available 05/20/2022 64913 3 RxNorm Michelle Sharif MD [address] [facility],[address], [place], [phone], [facility] - [place] 2 13:46:59 8126 acetamino phen medicatio n [...] Not Available Not Available No t Available [facility] 10 billion cell-200 mg [...] Details Last Updated DateTime 2 98.3 [degF] 29747.5 36 g 67 /min 96 % 96 % 18 /min 167.64 cm 98.3 [degF] 96 % 96 % 18 /min 67 /min 167.64 cm 16971.5 36 g 123 mm[Hg] 85 mm[Hg] 123 [...] 5372 Michelle Sharif MD Main - [facility] [address] [place] [address] 05/20/2022 13:39:36 05/22/2022 12:40:50 Acute urinary tract infection [id number] N39.0 advised to push fluids- f/u with [...] (MEDICARE REPLACEMENT/ADV ANTAGE - HMO) Jayesh Che [id number] Jayesh Che Notes Date Note Type Note Provider Name and Address Organization Details Recorded Time 05/20/2022 text/html HPI: 72 year old, Bhutanese speaking male, reporting dysuria with penile pain [...] to process visit SEGMD: Pt interviewed w/ filter machine operator- only has penile pain inside [...] .................... .................... .................... .................... .................... .................... ...... Treatment Technician Note: Sent to a call for a pt complaining of dysuria and penile pain x 2-3 days. SC8 arrives on scene, pt is alert and oriented. Airway is patent. Pt's primary language is Bhutanese; motion pictures cartoonist line used during visit. Pt complains of [...] clear, concentrated; Urine dip: results uploaded to [facility]. [facility] orders Levofloxacin 500mg PO and urine culture to be sent to [facility]. Pt advised to take Tylenol 500mg q 6hrs prn, increase oral hydration, and follow up with urologist. Levofloxacin administered without incident. [facility] sends script to pt's pharmacy for Levofloxacin and Pyridium. Red flags discussed. Pt has no further questions. .................... .................... .................... .................... .................... .................... .................... . Disposition: Fulfilled Michelle Sharif MD [address] [facility],[address], [place], [address], [place] - [employer], [place] 05/20/2022 14:33:50
--- OUTSIDE RECORDS SUMMARY | 2024-09-04 08:04 | XMS_ITS | Encounter Summary ---
Author Organization [employer] Address [address] [facility] 7[address] [place] [address] Care Team Providers Care Hair Spinner Name Role Phone Niki Ramos MD Primary Care Provide r Encounter Details Date Type Department Care Team ([facility] st Contact Info) Description 05/27/2022 Abstract [facility] ADULT DENTAL [address] [place] [address] Dental, Provider, DDS Social History Tobacco Use [...] Routine 05/27/2022 12:00 AM EST 28 B(V) RESIN-BASED COMPOSITE - 1 SURF, POSTERIOR Routine 05/27/2022 12:00 AM EST 5 B(V) RESIN-BASED COMPOSITE - 1 SURF, POSTERIOR Routine 05/27/2022 12:00 AM EST 4 B(V) RESIN-BASED COMPOSITE - 1 SURF, POSTERIOR Routine 05/27/2022 12:00 AM EST 7,10 PONTIC - PORCELAIN FUSED TO PREDOMINANTLY BASE METAL Routine 05/27/2022 12:00 AM EST documented in this encounter Visit Diagnoses Not on filedocumented in this encounter Care Teams Hair Spinner Relationship Specialty Start Date End Date Niki Ramos MD [address] [place] [address] PCP - General Family Medicine 03/24/18 documented as of this encounter
--- OUTSIDE RECORDS SUMMARY | 2024-09-04 08:04 | XMS_ITS | Encounter Summary ---
Author Organization [email or web address] Address [address] [facility] [address] [place] [address] Care Team Providers Care Make Up Editor Name Role Phone Niki Ramos MD Primary Care Provide r Encounter Details Date Type Department Care Team (Late st Contact Info) Description 07/30/2022 Abstract [facility] ADULT DENTAL [address] [place] [address] Sundeep Felipe, ROBERTO [address] [place] [address] Social History Tobacco Use Types Packs/Day Years [...] on filedocumented in this encounter Care Teams Make Up Editor Relationship Specialty Start Date End Date Niki Ramos MD [address] [place] [address] PCP - General Family Medicine 03/24/18 documented as of this encounter
--- OUTSIDE RECORDS SUMMARY | 2024-09-04 08:04 | XMS_ITS | Encounter Summary ---
Author Organization [employer] Address [address] [facility] [address] [place] [address] Care Team Providers Care Credit Control Assistant Name Role Phone Niki Ramos MD Primary Care Provide r Reason for Visit * Reason Comments Dentures Encounter Details Date Type Department Care Team ([facility] st Contact Info) Description 08/24/2024 10:00 AM EST Office Visit [facility] ADULT DENTAL [address] [place] [address] Sundeep Felipe, DMD [address] [place] [address] Social History Tobacco Use Types Packs/Day Years [...] AM EDT documented as of this encounter Last Filed Vital Signs Vital Sign Reading Time Taken Comments Blood Pressure 132/88 08/24/2024 9:53 AM EST Pulse - - Temperature - - Respiratory Rate - - Oxygen Saturation - - Inhaled Oxygen Concentration - - Weight - - Height - - Body Mass Index - - documented in this encounter Progress Notes * Sundeep Felipe DMD - 08/24/2024 10:00 AM EST Delivery of upper Flexible upper partial denture. Pt feels fine and likes the esthetic NV: adjustment of P/ if needed Rowan documented in this encounter Plan of Treatment Not on file documented as of this encounter Procedures Procedure Name Priority Date/Time Associated Diagnosis Comments 2,3,15,6 MAXILLARY PARTIAL DENTURE - FLEXIBLE BASE (INCLUDING ANY CLASPS, RESTS AND TEETH) Routine 08/24/2024 10:00 AM EST CASE PRESENTATION, DETAILED AND EXTENSIVE TREATMENT PLANNING Routine 08/24/2024 10:00 AM EST documented in this encounter Visit Diagnoses Not on filedocumented in this encounter Additional Health Concerns Assessment Noted Time PHQ-9 Depression Total Score: 0 10/04/19 24 9:42 AM EDT documented as of this encounter Care Teams Credit Control Assistant Relationship Specialty Start Date End Date iNki Ramos MD [address] [place] [address] PCP - General Family Medicine 03/24/18 documented as of this encounter
--- OUTSIDE RECORDS SUMMARY | 2024-09-04 08:04 | XMS_ITS | Encounter Summary ---
Author Organization [employer] Address [address] [facility] [address] [place] [address] Care Team Providers Care Valve Fitter Name Role Phone Niki Ramos MD Primary Care Provide r Encounter Details Date Type Department Care Team (Late st Contact Info) Description 06/22/2022 Abstract [facility] ADULT DENTAL [address] [place] [address] Sachin Chow, DMD [address] [place] [address] Social History Tobacco Use Types Packs/Day Years [...] on filedocumented in this encounter Care Teams Valve Fitter Relationship Specialty Start Date End Date Niki Ramos MD [address] [place] [address] PCP - General Family Medicine 03/24/18 documented as of this encounter
--- OUTSIDE RECORDS SUMMARY | 2024-09-04 08:04 | XMS_ITS | Encounter Summary ---
Author Organization [employer] Address [address] [facility] [address] [place] [address] Care Team Providers Care Audio Visual Equipment Rental Clerk Name Role Phone Niki Ramos MD Primary Care Provide r Encounter Details Date Type Department Care Team (Latest Contact Info) Description 09/01/2024 Travel Social History Tobacco Use Types Packs/Day Years [...] documented as of this encounter Care Teams Audio Visual Equipment Rental Clerk Relationship Specialty Start Date End Date Niki Ramos MD [address] [place] [address] PCP - General Family Medicine 03/24/18 documented as of this encounter
--- OUTSIDE RECORDS SUMMARY | 2024-09-04 08:04 | XMS_ITS | Encounter Summary ---
Author Organization [employer] Address [address] [facility] [address] [place] [address] Care Team Providers Care Nurseryperson Name Role Phone Niki Ramos MD Primary Care Provide r Encounter Details Date Type Department Care Team (Late st Contact Info) Description 06/05/2022 Abstract [facility] ADULT DENTAL [address] [place] [address] Sundeep Felipe DMD [address] [place] [address] Social History Tobacco Use Types Packs/Day Years [...] on filedocumented in this encounter Care Teams Nurseryperson Relationship Specialty Start Date End Date Niki Ramos MD [address] [place] [address] PCP - General Family Medicine 03/24/18 documented as of this encounter
--- OUTSIDE RECORDS SUMMARY | 2024-09-04 08:04 | XMS_ITS | Encounter Summary ---
Author Organization [employer] Address [address] [facility] [address] [place] [address] Care Team Providers Care Scrap Iron Loader Name Role Phone Niki Ramos MD Primary Care Provide r Encounter Details Date Type Department Care Team ([facility] st Contact Info) Description 09/01/2024 10:45 AM EST Office Visit [facility] MEDICINE [address] [place] [address] Niki Ramos MD [address] [place], [place] [phone] Pruritus (Primary Dx); Mood disorder (CMS/HCC); Essential hypertension; Colon cancer screening; Benign prostatic hyperplasia with lower urinary tract symptoms, symptom details unspecified Social History Tobacco Use Types Packs/Day Years [...] 14 09/01/2024 10:17 AM EST Oxygen Saturation - - Inhaled Oxygen Concentration - - Weight 69.1 kg (152 lb 6.4 oz) 09/01/2024 10:17 AM EST Height 160 cm (5' 3 ) 09/01/2024 10:17 AM EST Body Mass Index 27 09/01/2024 10:17 AM EST documented in this encounter Progress Notes * Niki Simmons MD - 09/01/2024 10:45 AM EST SUBJECTIVE: Jayesh Che is a 74 y.o. year old male who presents for Chronic Disease Management . Acute Concerns: Patient's main concern today is that he has been having disseminated itchiness it is triggered onlyat night denies rash redness, denies new soaps, lotions or any other problems Social History Social History Narrative Not on file Patient Active Problem List Diagnosis Benign prostatic hyperplasia BPH without urinary obstruction Bloating symptom Chronic gastritis Essential hypertension Adenomyomatosis of gallbladder Gastroesophageal reflux disease without esophagitis Gallstone Generalized anxiety disorder Mixed anxiety and depressive disorder Hypertriglyceridemia Kidney stone Mood disorder (CMS/HCC) Onychomycosis Panic attack Visual impairment Vitamin D deficiency Encounter for routine history and physical exam for male Moderate asthma without complication Dizziness Chest pain, atypical Dyspnea on exertion Colon cancer screening Pruritus Allergy Blurry vision Hematuria No family history on file. Review of Systems Constitutional: Negative. HENT: Negative. Respiratory: Negative. Cardiovascular: Negative. Skin: Disseminated pruritus OBJECTIVE: Vitals: 09/01/24 1017 BP: 126/80 BP Location: Left arm Patient Position: Sitting BP Cuff Size: Adult Pulse: 82 Resp: 14 Temp: 98.7 ??F (37.1 ??C) TempSrc: Oral Weight: 152 lb 6.4 oz (69.1 kg) Height: 5' 3 (1.6 m) Physical Exam Constitutional: Appearance: Normal appearance. Cardiovascular: Rate and Rhythm: Normal rate and regular rhythm. Pulmonary: Effort: Pulmonary effort is normal. Breath sounds: Normal breath sounds. Abdominal: General: Abdomen is flat. Palpations: Abdomen is soft. Musculoskeletal: Right lower leg: No edema. Left lower leg: No edema. Neurological: Mental Status: He is alert. Follow Up: No follow-ups on file. Current Outpatient Medications on File Prior to Visit Medication Sig Dispense Refill albuterol (2.5 MG/3ML) 0.083% nebulizer solution INHALE 1 AMPULE USING A NEBULIZER EVERY 4 HOURS ASNEEDED FOR WHEEZING 90 mL 3 albuterol (Ventolin HFA) 108 (90 Base) MCG/ACT inhaler INHALE 2 PUFFS BY MOUTH EVERY 4 TO 6 HOURS NEEDED FOR WHEEZING OR SHORTNESS OF BREATH 18 g 3 amLODIPine (Norvasc) 2.5 MG tablet Take 2 tablets (5 mg) by mouth Once per day. 60 tablet 11 aspirin 81 MG EC tablet Take 1 tablet by mouth at bed time. atorvastatin (Lipitor) 40 MG tablet Take 1 tablet (40 mg) by mouth Once per day. 30 tablet 11 Blood Pressure Monitoring (Blood Pressure Cuff) misc 1 each Once daily. 1 each 0 Breztri Aerosphere 160-9-4.8 MCG/ACT aerosol Inhale 2 puffs 2 times daily. budesonide-formoterol (Symbicort) 160-4.5 MCG/ACT inhaler INHALE 2 PUFFS BY MOUTH TWICE DAILY IN THE MORNING AND AT BEDTIME RINSE MOUTH AFTER USING. 10.2 g 2 busPIRone (Buspar) 10 MG tablet Take 10 mg by mouth 2 times daily. Cold Sore Products (GNP Cold Sore Treatment) 0.13 % liquid apply twice a day as needed EPINEPHrine (Epipen) 0.3 MG/0.3ML injection syringe INJECT INTRAMUSCULARLY DIRECTED ON PACKAGE AND GO TO EMERGENCY ROOM 2 each 1 escitalopram (Lexapro) 10 MG tablet finasteride (Proscar) 5 MG tablet Take 1 tablet by mouth Once per day. Fluticasone Propionate, Inhal, (Flovent Diskus) 100 MCG/ACT aerosol powder INHALE 1 PUFF BY MOUTH TWICE DAILY. RINSE MOUTH AFTER USING. hydroCHLOROthiazide (HYDRODiuril) 12.5 MG tablet Take 1 tablet (12.5 mg) by mouth Once per day. 30 tablet 11 ipratropium-albuterol (Duo-Neb) 0.5-2.5 mg/3 mL nebulizer solution Take 3 mL by nebulization in themorning, at noon, and at bedtime. levoFLOXacin (Levaquin) 750 MG tablet Take 1 tablet by mouth Once per day. LORazepam (Ativan) 0.5 MG tablet Take 1 tablet (0.5 mg) by mouth every 6 (six) hours if needed for anxiety for up to 2 doses. 2 tablet 0 montelukast (Singulair) 10 MG tablet TAKE 1 TABLET BY MOUTH EVERY DAY AT BEDTIME 30 tablet 2 Nirmatrelvir&Ritonavir 300/100 (Paxlovid, 300/100,) 20 x 150 MG & 10 x 100MG tablet therapypack Take 300 mg by mouth 2 times daily. Take 3 tablets 2x/day for 5 days 30 each 0 omeprazole (PriLOSEC) [address] capsule TAKE 1 CAPSULE BY MOUTH ONCE DAILY BEFORE MEALS 90 capsule 2 Spacer/Aero-Holding Chambers (OptiChamber Lorraine) misc 1 each every 4 (four) hours if needed (asthma). 1 each 0 zolpidem (Ambien) 5 MG tablet TAKE 1 TABLET BY MOUTH AT BEDTIME NEEDED for SLEEP 28 tablet 0 No current facility-administered medications on file prior to visit. Problem List Items Addressed This Visit Pruritus - Primary Labs ordered today patient will be contacted with results I will prescribe for patient hydroxyzine at bedtime for the itchiness Relevant Medications hydrOXYzine HCl (Atarax) 25 MG tablet Other Relevant Orders CBC auto differential Comprehensive Metabolic Panel Hemoglobin A1c HIV-1/2 Antigen and Antibodies, Fourth Generation, with Reflexes Hepatitis C Antibody with Reflex to HCV, RNA, Quantitative, Real-Time PCR Lipid Panel, Standard Vitamin D, 25-Hydroxy, Total, Immunoassay TSH with Reflex to Free T4 Mood disorder (CMS/HCC) Continue to follow-up with therapist and psychiatrist Essential hypertension Blood pressure seems to be under control, I advised low-sodium diet Continue with same interventions Colon cancer screening Patient is scheduled for a colonoscopy Benign prostatic hyperplasia Patient reports he has been followed by urology and he scheduled for a procedure and is currently down to evaluate for colonoscopy, I advised to follow-up with specialists and do not miss any appointment documented in this encounter Miscellaneous Notes * Assessment & Plan Note - Niki Simmons MD - 09/01/2024 4:18 PM EST Associated Problem(s): Mood disorder (CMS/HCC) Continue to follow-up with therapist and psychiatrist * Assessment & Plan Note - Niki Simmons MD - 09/01/2024 4:18 PM EST Associated Problem(s): Colon cancer screening Patient is scheduled for a colonoscopy * Assessment & Plan Note - Niki Simmons MD - 09/01/2024 4:18 PM EST Associated Problem(s): Benign prostatic hyperplasia Patient reports he has been followed by urology and he scheduled for a procedure and is currently down to evaluate for colonoscopy, I advised to follow-up with specialists and do not miss any appointment * Assessment & Plan Note - Niki Simmons MD - 09/01/2024 4:17 PM EST Associated Problem(s): Essential hypertension Blood pressure seems to be under control, I advised low-sodium diet Continue with same interventions * Assessment & Plan Note - Niki Simmons MD - 09/01/2024 4:17 PM EST Associated Problem(s): Pruritus Labs ordered today patient will be contacted with results I will prescribe for patient hydroxyzine at bedtime for the itchiness documented in this encounter Plan of Treatment Scheduled Orders Name Type Priority Associated Diagnoses Orde r Schedule CBC auto differential Lab Routine Pruritus Expected: 09/01/2024 (Approximate), Expires: 09/01/2025 Comprehensive Metabolic Panel Lab Routine Pruritus Expected: 09/01/2024 (Approximate), Expires: 09/01/2025 Hemoglobin A1c Lab Routine Pruritus Expected: 09/01/2024 (Approximate), Expires: 09/01/2025 HIV-1/2 Antigen and Antibodies, Fourth Generation, with Reflexes Lab Routine Pruritus Expected: 09/01/2024 (Approximate), Expires: 09/01/2025 Hepatitis C Antibody with Reflex to HCV, RNA, Quantitative, Real-Time PCR Lab Routine Pruritus Expected: 09/01/2024, Expires: 09/01/2025 Lipid Panel, Standard Lab Routine Pruritus Expected: 09/01/2024 (Approximate), Expires: 09/01/2025 Vitamin D, 25-Hydroxy, Total, Immunoassay Lab Routine Pruritus Expected: 09/01/2024 (Approximate), Expires: 09/01/2025 TSH with Reflex to Free T4 Lab Routine Pruritus Expected: 09/01/2024 (Approximate), Expires: 09/01/2025 documented as of this encounter Visit Diagnoses Diagnosis Pruritus- Primary Unspecified pruritic disorder Mood disorder (CMS/HCC) Unspecified episodic mood disorder Essential hypertension Unspecified essential hypertension Colon cancer screening Special screening for malignant neoplasms, colon Benign prostatic hyperplasia with lower urinary tract symptoms, symptom details unspecified documented in this encounter Additional Health Concerns Assessment Noted Time PHQ-9 Depression Total Score: 0 10/04/19 24 9:42 AM EDT documented as of this encounter Care Teams Scrap Iron Loader Relationship Specialty Start Date End Date Niki Ramos MD [address] [place] [address] PCP - General Family Medicine 03/24/18 documented as of this encounter
[2024-09-04 11:40] LABS: MANUAL DIFF FLAG NO
[2024-09-04 11:51] LABS: Basophils Percent Auto 0.8 % (0-2); Eosinophils Absolute Auto 0.2 X10*3/uL (0.0-0.4); Eosinophils Percent Auto 4.3 % (0-4); Hematocrit 43.3 % (42.0-52.0); Hemoglobin 14.1 g/dl (14.0-18.0); Imm Gran Abs Auto 0.01 X10*3/uL (0.00-0.03); Imm Gran Pct Auto 0.3 % (0.0-0.4); Lymphocytes Absolute Auto 0.9 X10*3/uL (1.2-4.9); Lymphocytes Percent Auto 23.6 % (20-40); Mean Corpuscular HGB Conc 32.6 g/dl (31.0-36.0); Mean Corpuscular Hemoglobin 28.6 pg (27.0-33.0); Mean Corpuscular Volume 87.8 fL (80.0-98.0); Mean Platelet Volume 10.5 fL (9.4-12.4); Monocytes Absolute Auto 0.3 X10*3/uL (0.1-1.2); Neutrophils Absolute Auto 2.4 x10*3/uL (2.0-8.3); Platelet Count 180 X10*3/uL (160-400); Red Blood Count 4.93 X10*6/uL (4.60-5.80); Red Cell Distribution Width 12.6 % (11.0-16.0); White Blood Count 3.7 X10*3/uL (4.8-10.8)
[2024-09-04 12:08] LABS: Estimated Average Glucose 117 mg/dL; Hemoglobin A1C 143.5939 umol/L; Hemoglobin A1c % 5.7 % (<6.0); Total Hemoglobin (HGBA1C) 3683.6535 umol/L
[2024-09-04 12:20] LABS: Alanine Aminotransferase 35 U/L (0-40); Albumin Level 4.1 g/dL (3.5-5.0); Alkaline Phosphatase 47 U/L (39-117); Anion Gap 11 (12-20); Aspartate Amino Transferase 27 U/L (5-37); Bilirubin Total 0.6 mg/dL (0.0-1.0); Blood Urea Nitrogen 16 mg/dL (9-16); Calcium 8.8 mg/dL (8.4-10.2); Carbon Dioxide 28 mmol/L (22-29); Chloride 108 mmol/L (96-108); Cholesterol 106 mg/dL (<200); Estimated Glomerular Filt Rate > 60; Glucose Random 104 mg/dL (60-115); HDL Cholesterol 45 mg/dL (>40); LDL Cholesterol Calculated 47 mg/dL (<100); Potassium 3.8 mmol/L (3.3-5.1); Sodium 143 mmol/L (135-145); Total Protein 6.8 g/dL (6.5-8.0); Triglycerides 74 mg/dL (<150)
[2024-09-04 12:26] LABS: TSH reflex Free T4 1.23 uIU/mL (0.32-4.0); Vitamin D 25-OH Total 26.9 ng/mL (>30)
[2024-09-04 12:42] LABS: PSA,Total (Free>4and<10) 10.94 ng/mL (0.00-4.00)
[2024-09-05 08:10] LABS: HIV AB/AG Nonreactive (Nonreactive); HIV Num 1 0.06 S/CO (0.00-0.99); ~Hepatitis C Antibody Nonreactive (Nonreactive)
== END 2024-09-04 07:58 | disposition home or self-care (01) ==
LOC: HO.HHCL 07:57
PROVIDERS: Urology; Visit Provider Internal Medicine
DX: L29.9 Pruritus, unspecified (principal); N40.1 Benign prostatic hyperplasia with lower urinary tract symptoms; N13.8 Other obstructive and reflux uropathy; Z12.5 Encounter for screening for malignant neoplasm of prostate; Z13.1 Encounter for screening for diabetes mellitus; Z13.6 Encounter for screening for cardiovascular disorders
CPT/HCPCS: 36415; 80053; 80061; 82306; 83036; 84153; 84443; 85025; 86803; 87389

== ENCOUNTER → 2024-09-13 09:08 | Outpatient (REF) | payer OTHER, SELFPAY ==
--- NOTE | 2024-09-13 09:11 | CA_ITS ---
Acquisition Time: 2024-09-13 09:29:40 Total Exercise Time: 00:05:01 Test Indications: CP Medications: SEE H&P Protocol: COLLINS Max HR: 142 BPM 97% of Pred: 146 BPM Max BP: 148/80 mmHG Max Work Load: 4.6 METS Exercise Stress Test with exercise 5 mins 1 sec of Collins Protocol, held at Stage 1 due to speed problem for pt, achieving 97% MPHR, with rerpots of mild SOB, no chest discomfort, with isolated PACs and PVCs, with normotensive response to exercise. Without EKG changes meeting criteria for ischemia. In recovery, breathing returned to baseline. Nuclear images pending. Test reviewed with Dr. Lyman. Referred By: Ralph Lyman Electronically Signed By: Thad Noble
--- OUTSIDE RECORDS SUMMARY | 2024-09-13 09:45 | XMS_ITS | Encounter Summary ---
Author Organization [employer] Address [address] [facility] 7t [place] [address] Care Team Providers Care Historian Research Assistant Name Role Phone Niki Ramos MD Primary Care Provide r Reason for Visit * Reason Comments Dentures Encounter Details Date Type Department Care Team ([facility] st Contact Info) Description 08/24/2024 10:00 AM EST Office Visit [facility] ADULT DENTAL [address] [place] [address] Sundeep Felipe, DMD [address] [place] [address] Social History Tobacco Use Types Packs/Day Years [...] documented as of this encounter Care Teams Historian Research Assistant Relationship Specialty Start Date End Date Niki Ramos MD [address] [place] [address] PCP - General Family Medicine 03/24/18 documented as of this encounter
--- OUTSIDE RECORDS SUMMARY | 2024-09-13 09:45 | XMS_ITS | Encounter Summary ---
Author Organization [employer] Address [address] [facility] 7t [place] [address] Care Team Providers Care Stripper Cutter Machine Name Role Phone Niki Ramos MD Primary Care Provide r Encounter Details Date Type Department Care Team (Late st Contact Info) Description 03/12/2023 Orders Only [facility] MEDICINE [address] [place] [address] Provider, Yao, Social History Tobacco Use Types [...] documented as of this encounter Care Teams Stripper Cutter Machine Relationship Specialty Start Date End Date Niki Ramos MD [address] [place] [address] PCP - General Family Medicine 03/24/18 documented as of this encounter
--- OUTSIDE RECORDS SUMMARY | 2024-09-13 09:45 | XMS_ITS | Encounter Summary ---
Author Organization [email or web address] Address [address] [facility] 7t [place] [address] Care Team Providers Care Field Representatives Director Name Role Phone Niki Ramos MD Primary Care Provide r Encounter Details Date Type Department Care Team (Late st Contact Info) Description 09/03/[address] [facility] ADULT DENTAL [address] [place] [address] Sundeep Felipe, ROBERTO [address] [place] [address] Social History Tobacco Use Types Packs/Day Years [...] on filedocumented in this encounter Care Teams Field Representatives Director Relationship Specialty Start Date End Date Niki Ramos MD [address] [place] [address] PCP - General Family Medicine 03/24/18 documented as of this encounter
--- OUTSIDE RECORDS SUMMARY | 2024-09-13 09:45 | XMS_ITS | Encounter Summary ---
Author Organization [employer] Address [address] [facility] 7t [place] [address] Care Team Providers Care Inspector Receiving Name Role Phone Niki Ramos MD Primary Care Provide r Reason for Visit * Reason Onset Date Comments Results 09/04/2024 Encounter Details Date Type Department Care Team ([facility] st Contact Info) Description 09/04/2024 Telephone [facility] MEDICINE [address] [place] [address] Niki Ramos MD [address] [place] [address] Results Social History Tobacco Use Types Packs/Day Years [...] - Danuta De Los Santos RN - 09/04/2024 4:30 PM EST TC placed to pt [phone] to inform of below message. Pt verbalized understanding and did not have any further questions/concerns. Pt to f/u PRN. ----- Message from Niki Simmons MD sent at 09/04/2024 1:58 PM EST ----- Please let patient know his vitamin D is slightly low I will send prescription to pharmacy, rest oflabs are view as normal documented in this encounter Plan of Treatment Not on file documented as of this encounter Visit Diagnoses Not on filedocumented in this encounter Additional Health Concerns Assessment Noted Time PHQ-9 Depression Total Score: 0 10/04/19 24 9:42 AM EDT documented as of this encounter Care Teams Inspector Receiving Relationship Specialty Start Date End Date Niki Ramos MD [address] [place] [address] PCP - General Family Medicine 03/24/18 documented as of this encounter
--- OUTSIDE RECORDS SUMMARY | 2024-09-13 09:45 | XMS_ITS | Encounter Summary ---
Author Organization [employer] Address [address] [facility] [address] [place] [address] Care Team Providers Care Five Piece Expansion Maker Hand Name Role Phone Niki Ramos MD Primary Care Provide r Encounter Details Date Type Department Care Team ([facility] st Contact Info) Description 09/04/2024 Orders Only GENERIC EXTERNAL DATA DEPARTMENT Provider, Generic External Data Social History Tobacco Use Types Packs/Day Years [...] Procedure Name Priority Date/Time Associated Diagnosis Comments PSA, TOTAL WITH REFLEX TO PSA, FREE Routine 09/04/2024 7:59 AM EST documented in this encounter Results * (ABNORMAL) PSA, Total With Reflex to PSA, Free (09/04/2024 7:59 AM EST) PSA,Total (Free>4and<10) 10.94(H ) 0.00 - 4.00 ng/mL [facility] Comment:A Free PSA was not p erformed: The percentage of Free PSA can be used to enhance the differentiation of prostate cancer from benign prostatic disease in subjects whose PSA levels are between 4.0 and 10.0 ng/mL. For subjects whose PSA levels are below 4.0 or above 10.0 ng/mL, the risk of prostate cancer is determined on the basis of the PSA alone. Therefore the % Free PSA is recommended only for those subjects whose PSA levels are between 4.0 and 10.0 ng/mL.PSA methodology: Medina Alinity i ChemiluminescentMicroparticle Immunoassay (CMIA) 09/04/2024 7:59 AM EST 09/04/2024 11:36 AM EST us Generic External Data Provider LAB BLOOD ORDERAB LES Final Result [facility] [address] [place] [address] [id number] [phone] documented in this encounter Visit Diagnoses Not on filedocumented in this encounter Additional Health Concerns Assessment Noted Time PHQ-9 Depression Total Score: 0 10/04/19 24 9:42 AM EDT documented as of this encounter Care Teams Five Piece Expansion Maker Hand Relationship Specialty Start Date End Date Niki Ramos MD [address] [place] [address] PCP - General Family Medicine 03/24/18 documented as of this encounter
--- OUTSIDE RECORDS SUMMARY | 2024-09-13 09:45 | XMS_ITS | Encounter Summary ---
Author Organization [employer] Address [address] [facility] 7t [place] [address] Care Team Providers Care Oral Surgeon Name Role Phone Niki Ramos MD Primary Care Provide r Reason for Visit * Reason Comments Med Refill Encounter Details Date Type Department Care Team ([facility] st Contact Info) Description 09/12/2024 Refill [facility] MEDICINE [address] [place] [address] Niki Ramos MD [address] [place] [address] Social History Tobacco Use Types Packs/Day Years [...] documented as of this encounter Care Teams Oral Surgeon Relationship Specialty Start Date End Date Niki Ramos MD [address] [place] [address] PCP - General Family Medicine 03/24/18 documented as of this encounter
--- OUTSIDE RECORDS SUMMARY | 2024-09-13 09:45 | XMS_ITS | Encounter Summary ---
Author Organization [employer] Address [address] [facility] 7t [place] [address] Care Team Providers Care Correction Lieutenant Name Role Phone Niki Ramos MD Primary Care Provide r Reason for Visit * Reason Onset Date Comments Medication Question 08/31/2024 Encounter Details Date Type Department Care Team ([facility] st Contact Info) Description 08/31/2024 Telephone [facility] MEDICINE [address] [place] [address] Niki Raoms MD [address] [place] [address] Medication Question Social History Tobacco Use Types [...] 3:47 PM EST TC returned to [facility] [phone] to inform the zolpidem medication is NOT rx'd by PCP. Magali advised to contact psychiatry office (Aarti Wynn) to further discuss. Magali verbalized understanding. Magali to f/u PRN. * Telephone Encounter - Denilson Davison - 08/31/2024 11:01 AM EST TC from [facility] a SENSITOMETRIST with [facility] wanting to discuss Zolpidem .. Pt reports although takes as prescribedmedication doesn't really due much for him . Magali states given patients age and risk factor , script should be canceled and patient should be prescribed melatonin if he has not already tried it . Magali would like an update so she may update patients chart aswell. [facility] [phone] documented in this encounter Plan of Treatment Not on file documented as of this encounter Visit Diagnoses Not on filedocumented in this encounter Additional Health Concerns Assessment Noted Time PHQ-9 Depression Total Score: 0 10/04/19 24 9:42 AM EDT documented as of this encounter Care Teams Correction Lieutenant Relationship Specialty Start Date End Date Niki Ramos MD [facility] [place] [address] PCP - General Family Medicine 03/24/18 documented as of this encounter
--- OUTSIDE RECORDS SUMMARY | 2024-09-13 09:45 | XMS_ITS | Encounter Summary ---
Author Organization [employer] Address [address] [facility] 7t [place] [address] Care Team Providers Care Brim Stretcher Name Role Phone Niki Ramos MD Primary Care Provide r Encounter Details Date Type Department Care Team (Late st Contact Info) Description 06/05/2022 Abstract [facility] ADULT DENTAL [address] [place] [address] Sundeep Felipe DMD [address] [place] [address] Social History Tobacco Use Types Packs/Day Years [...] on filedocumented in this encounter Care Teams Brim Stretcher Relationship Specialty Start Date End Date Niki Ramos MD [address] [place] [address] PCP - General Family Medicine 03/24/18 documented as of this encounter
--- OUTSIDE RECORDS SUMMARY | 2024-09-13 09:45 | XMS_ITS | Clinical Summary ---
Author Organization [employer] Address [address] [facility] [address] [place] [address] Care Team Providers Care Human Resources Receptionist Name Role Phone Niki Ramos MD Primary Care Provide r Allergies Active Allergy Reactions Criticality Noted Date Comments Acetaminophen Unknown 10/26/2018 Acetaminophen-Codeine 05/27/2022 Oxycodone Unknown 10/26/2018 Medications * This document contains information received from the source organization and may not represent a complete record from that organization. aspirin 81 MG EC tablet Take 1 tablet by mouth at bed time. 019 Active Cold Sore Products (GNP Cold Sore Treatment) 0.13 % liquid apply twice a day as needed 019 Active escitalopram (Lexapro) 10 MG tablet 022 Active LORazepam (Ativan) 0.5 MG tabletIndication s:Panic attack Take 1 tablet (0.5 mg) by mouth every 6 (six) hours if needed for anxiety for up to 2 doses. 2 tablet 023 Active zolpidem (Ambien) 5 MG tabletIndication s:Other insomnia TAKE 1 TABLET BY MOUTH AT BEDTIME NEEDED for SLEEP 28 tablet 023 Active Nirmatrelvir&Rit onavir 300/100 (Paxlovid, 300/100,) 20 x 150 MG & 10 x 100MG tablet therapy pack Take 300 mg by mouth 2 times daily. Take 3 tablets 2x/day for 5 days 30 each 023 Active amLODIPine (Norvasc) 2.5 MG tabletIndication s:Essential hypertension Take 2 tablets (5 mg) by mouth Once per day. 60 tablet 11 024 2024 Active atorvastatin (Lipitor) 40 MG tabletIndication s:Essential hypertension Take 1 tablet (40 mg) by mouth Once per day. 30 tablet 11 024 2024 Active Blood Pressure Monitoring (Blood Pressure Cuff) miscIndications: Essential hypertension 1 each Once daily. 1 each Active hydroCHLOROthiaz jocelynn (HYDRODiuril) 12.5 MG tablet Take 1 tablet (12.5 mg) by mouth Once per day. 30 tablet 11 024 2024 Active Spacer/Aero-Hold ing Chambers (OptiChamber Lorraine) misc 1 each every 4 (four) hours if needed (asthma). 1 each Active albuterol (Ventolin HFA) 108 (90 Base) MCG/ACT inhalerIndicatio ns:Mild intermittent asthma, unspecified whether complicated INHALE 2 PUFFS BY MOUTH EVERY 4 TO 6 HOURS NEEDED FOR WHEEZING OR SHORTNESS OF BREATH 18 g 3 Active albuterol (2.5 MG/3ML) 0.083% nebulizer solutionIndicati ons:Asthma in adult, mild intermittent, uncomplicated INHALE 1 AMPULE USING A NEBULIZER EVERY 4 HOURS NEEDED FOR WHEEZING 90 mL 3 Active EPINEPHrine (Epipen) 0.3 MG/0.3ML injection syringe INJECT INTRAMUSCULARLY DIRECTED ON PACKAGE AND GO TO EMERGENCY ROOM 2 each 1 Active montelukast (Singulair) 10 MG tabletIndication s:Asthma in adult, mild intermittent, uncomplicated TAKE 1 TABLET BY MOUTH EVERY DAY AT BEDTIME 30 tablet 2 Active budesonide-formo terol (Symbicort) 160-4.5 MCG/ACT inhalerIndicatio ns:Asthma in adult, mild intermittent, uncomplicated INHALE 2 PUFFS BY MOUTH TWICE DAILY IN THE MORNING AND AT BEDTIME RINSE MOUTH AFTER USING. 10.2 g 2 Active busPIRone (Buspar) 10 MG tablet Take 10 mg by mouth 2 times daily. Active Breztri Aerosphere 160-9-4.8 MCG/ACT aerosol Inhale 2 puffs 2 times daily. Active Fluticasone Propionate, Inhal, (Flovent Diskus) 100 MCG/ACT aerosol powder INHALE 1 PUFF BY MOUTH TWICE DAILY. RINSE MOUTH AFTER USING. Active finasteride (Proscar) 5 MG tablet Take 1 tablet by mouth Once per day. Active ipratropium-albu terol (Duo-Neb) 0.5-2.5 mg/3 mL nebulizer solution Take 3 mL by nebulization in the morning, at noon, and at bedtime. Active levoFLOXacin (Levaquin) 750 MG tablet Take 1 tablet by mouth Once per day. Active hydrOXYzine HCl (Atarax) 25 MG tabletIndication s:Pruritus Take 1 tablet (25 mg) by mouth if needed at bedtime for itching. 30 tablet 025 2024 Active cholecalciferol (Vitamin D-3) 25 MCG (1000 UT) tabletIndication s:Vitamin D deficiency Take 1 tablet (25 mcg) by mouth Once per day. 60 tablet 1 Active omeprazole (PriLOSEC) [address] capsule TAKE 1 CAPSULE BY MOUTH ONCE DAILY BEFORE MEALS 90 capsule 2 025 Active omeprazole (PriLOSEC) [address] capsule TAKE 1 CAPSULE BY MOUTH ONCE DAILY BEFORE MEALS 90 capsule 2 024 2024 Discontinued Active Problems Problem Noted Date Diagnosed Date [...] PM EST): I will refer him to surveillance specialist Allergy 07/12/2023 Dyspnea on exertion 01/12/2023 [...] benefit from continued OP therapy, psychiatry and CB respite. At this time Jayesh Che meets criteria for Visit Diagnoses: Problem List Items Addressed This Visit Other Generalized anxiety disorder Patient ready to address current needs Yes Strengths- Jayesh is engaged in OP therapy and psychiatry services and in the active stage for change. PLAN: 1. Follow up with [facility]: Not recommended for follow-up 2. Patient goal is to continue OP therapy and explore additional coping mechanisms. 3. Behavioral Recommendations a. OP therapy b. Coping mechanisms- deep breathing C. 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/01/2024 Dilatation of aorta 09/17/2017 09/01/19 Encounters Date Type Department Care Team Description 09/12/2024 Refill [facility] [place] [address] Niki Ramos MD 09/04/[address] [address] Niki Ramos MD Results 09/04/2024 Orders Only GENERIC EXTERNAL DATA DEPARTMENT Provider, Generic External Data 09/01/2024 10:45 AM EST Office Visit [facility] [address] [place] [address] Niki Ramos MD Pruritus (Primary Dx); Mood disorder ([facility]/HCC); Essential hypertension; Colon cancer screening; Benign prostatic hyperplasia with lower urinary tract symptoms, symptom details unspecified 09/01/2024 Travel 08/31/2024 Orders Only [facility] [address] [place] [phone] Niki Ramos MD Vitamin D deficiency (Primary Dx) 08/31/[address] [address] Niki Ramos MD Medication Question 08/24/2024 10:00 AM EST Office Visit [facility] ADULT DENTAL [address] [place] [address] Sundeep Felipe DMD 07/10/2024 10:00 AM EST Office Visit [facility] ADULT [facility]ENT[facility] [address] [place] [address] Sundeep Felipe DMD 06/26/2024 Orders Only [facility] External Provider, [facility] 06/22/2024 Orders Only GENERIC EXTERNAL DATA DEPARTMENT Provider, Generic External Data 06/16/2024 2:30 PM EST Office Visit [facility] ADULT DENTAL [address] [place] [address] Sundeep Felipe DMD from Last 3 Months [...] 09/22/2024 09/23/2023 Depression Screening 10/03/2024 10/04/2023, 10/04/19 24 Tobacco Screening 08/24/2025 08/24/2024 Diabetes: Hemoglobin A1C 09/04/2025 025, 10/04/2023, 09/29/2022, Additional history exists DTaP/Tdap/Td Vaccines (2 - Td or Tdap) 08/12/2026 08/12/2016 Lipid Panel 09/04/2029 09/04/2024, 04/0 07/2023, 09/29/2022, Additional history exists Hepatitis B Vaccines Completed 06/05/2021, 10/26/2017, 09/17/2017 Pneumococcal Vaccine: 50+ Years Completed 06/05/2021, 08/12/2016 COVID-19 Vaccine Completed 04/26/2024, , 06/06/2021, Additional history exists Influenza Vaccine Completed 04/26/2024, , 04/29/2021, Additional history exists Hepatitis C Screening Completed 09/04/2024, 023 HIB Vaccines Aged Out No longer eligi [...] PSA, FREE Routine 09/04/2024 7:59 AM EST TSH W/REFLEX TO FT4 Routine 09/04/2024 7 :59 AM EST Pruritus VITAMIN D,25-OH,TOTAL,IA Routine 09/04/2024 7:59 AM EST Pruritus LIPID PANEL, STANDARD Routine 09/04/2024 7:59 AM EST Pruritus HEPATITIS C AB W/REFL TO HCV RNA, QN, PCR Routine 09/04/2024 7:59 AM EST Pruritus HIV 1/2 ANTIGEN/ANTIBODY, FOURTH GENERATION W/RFL Routine 09/04/2024 7:59 AM EST Pruritus HEMOGLOBIN A1C Routine 09/04/2024 7:59 AM EST Pruritus COMPREHENSIVE METABOLIC PANEL Routine 09/04/2024 7:59 AM EST Pruritus CBC WITH AUTO DIFFERENTIAL Routine 09/04/2024 7:59 AM EST Pruritus CASE PRESENTATION, DETAILED AND EXTENSIVE TREATMENT PLANNING [...] IMPRESSION Routine 06/16/2024 2: 30 PM EST HM COLONOSCOPY Routine 03/07/2020 from Last 3 Months or Most Recently Relevant to Health Maintenance Results * (ABNORMAL) Vitamin D, 25-Hydroxy, Total, Immunoassay (09/04/2024 7:59 AM EST) Vitamin D 25-OH Total 26.9(L) >30 ng/mL [facility] Comment:Health Based Referen ce Values*< 20 ng/mL [id number] ng/mL Insufficient> 30 ng/mL Sufficient*Leora CANDELARIA. N Engl J Med. 2007;357:266-280Care must be taken in interpreting Vitamin D results fromdifferent laboratories and methodologies. Published datademonstrated that results from patients undergoinghemodialysis may show a negative bias when tested withvarious automated 25-OH vitamin D assays when compared toLC-MS/MS.When testing samples from patients whose predominant form ofVitamin D is Vitamin D2, such as patients receiving VitaminD2 supplementation, results that are subtherapeutic shouldbe confirmed with another method such as LC-MS/MS. Blood Venous blood specimen / Unknown 09/04/2024 7:59 AM EST 09/04/2024 11:36 AM EST us Niki Simmons MD LAB BLOOD ORDERABLES Final Result Performing Organization Address City/[facility]/ZIP Co de Phone Number [facility] [address] [place] [phone] * TSH with Reflex to Free T4 (09/04/2024 7:59 AM EST) TSH reflex Free T4 1.23 0.32 - 4.0 uIU/mL [facility] Blood Venous blood specimen / Unknown 09/04/2024 7:59 AM EST 09/04/2024 11:36 AM EST us Niki Simmons MD LAB BLOOD ORDERABLES Final Result Performing Organization Address [facility] Co de Phone Number [facility] [address] [place] [phone] * (ABNORMAL) PSA, Total With Reflex to PSA, Free (09/04/2024 7:59 AM EST) Only the most recent of2 resultswithin the time period is included. PSA,Total (Free>4and<10) 10.94(H ) 0.00 - 4.00 ng/mL [facility] Comment:A Free PSA was not p [...] Provider LAB BLOOD ORDERAB LES Final Result [facility] [address] [place], [place] [phone] * (ABNORMAL) CBC auto differential (09/04/2024 7:59 AM EST) White Blood Count 3.7(L) 4.8 - 10.8 X10*3/uL [facility] Red Blood Count 4.93 4.60 - 5.80 X10*6/uL [facility] Hemoglobin 14.1 14.0 - 18.0 g/dl [facility] Hematocrit 43.3 42.0 - 52.0 % [facility] Mean Corpuscular Volume 87.8 80.0 - 98.0 fL [facility] Mean Corpuscular Hemoglobin 28.6 27.0 - 33.0 pg [facility] Mean Corpuscular HGB Conc 32.6 31.0 - 36.0 g/dl [facility] Red Cell Distribution Width 12.6 11.0 - 16.0 % [facility] Platelet Count 180 160 - 400 X10*3/uL [facility] Mean Platelet Volume 10.5 9.4 - 12.4 fL [facility] Neutrophils Percent Auto 64.0 45 - 73 % [facility] Imm Gran Pct Auto 0.3 0.0 - 0.4 % [facility] Lymphocytes Percent Auto 23.6 20 - 40 % [facility] Monocytes Percent Auto 7.0 2 - 11 % [facility] Eosinophils Percent Auto 4.3(H) 0 - 4 % [facility] Basophils Percent Auto 0.8 0 - 2 % [facility] NRBC Pct Auto 0.0 0.0 - 0.2 /100WBC [facility] Neutrophils Absolute Auto 2.4 2.0 - 8.3 x10*3/uL [facility] Imm Gran Abs Auto 0.01 0.00 - 0.03 X10*3/uL [facility] Lymphocytes Absolute Auto 0.9(L) 1.2 - 4.9 X10*3/uL [facility] Monocytes Absolute Auto 0.3 0.1 - 1.2 X10*3/uL [facility] Eosinophils Absolute Auto 0.2 0.0 - 0.4 X10*3/uL [facility] Basophils Absolute Auto 0.0 0.0 - 0.2 X10*3/uL [facility] NRBC Abs Auto 0.000 0.0 - 0.012 X10*3/uL [facility] Blood Venous blood specimen / Unknown 09/04/2024 7:59 AM EST 09/04/2024 11:36 AM EST Niki Simmons MD LAB BLOOD ORDERABLES Final Result Performing Organization Address [facility] Co de Phone Number [facility] [address] [place] [phone] * Hepatitis C Antibody with Reflex to HCV, RNA, Quantitative, Real-Time PCR (09/04/2024 7:59 AM EST) Hepatitis C Antibody Nonreactive Nonreactive [facility] Comment:Antibodies to HCV no t detected; does not exclude early acuteHCV infection. Blood Venous blood specimen / Unknown 09/04/2024 7:59 AM EST 09/04/2024 11:36 AM EST Niki Simmons MD LAB BLOOD ORDERABLES Final Result Performing Organization Address City/[facility] Co de Phone Number [facility] [address] [place] [phone] * HIV-1/2 Antigen and Antibodies, Fourth Generation, with Reflexes (09/04/2024 7:59 AM EST) HIV AB/AG Nonreactive Nonreactive [facility] Comment:HIV-1 p24 Ag and/or HIV-1/HIV-2 Ab not detected.A test result that is nonreactive does not exclude thepossibility of exposure to or infection with HIV-1 and/orHIV-2. Nonreactive results in this assay for individualswith prior exposure to HIV-1 and/or HIV-2 may be due toantigen and antibody levels that are below the limit ofdetection of this assay.The [employer] HIV Ag/Ab Combo assay result andsupplemental assay results should be interpreted inconjunction with the patient's clinical presentation,history and other laboratory results. If the results areinconsistent with clinical evidence, additional testing issuggested to confirm the result. Blood Venous blood specimen / Unknown 09/04/2024 7:59 AM EST 09/04/2024 11:36 AM EST us Niki Simmons MD LAB BLOOD ORDERABLES Final Result Performing Organization Address [facility]/ZIP Co de Phone Number [facility] [address] [place] [phone] * Hemoglobin A1c (09/04/2024 7:59 AM EST) Hemoglobin A1c 5.7 <6.0 % [facility] Comment:Hemoglobin A1C Refer ence Range Adults: 4.8 - 6.0 % Non diabetic: < 6.0 % Goal: < 7.0 %Additional Action Suggested: > 8.0 %Note: Hemoglobin A1c results are invalid for patients with abnormal amounts of HbF. Blood transfusions may impact the HbA1c concentration in the patient sample. Estimated Average Glucose 117 mg/dL [facility] Comment:eAG = Estimated ave rage glucose which is %A1C expressed asaverage glucose, using the formula of the W3B-KltrjnhZsylllc Glucose study (ADAG), Diabetes Care, Vol.31,#8,Feb. 2007 Blood Venous blood specimen / Unknown 09/04/2024 7:59 AM EST 09/04/2024 11:36 AM EST us Niki Simmons MD LAB BLOOD ORDERABLES Final Result Performing Organization Address [facility]/ZIP Co de Phone Number [facility] [address] [place] [phone] * Lipid Panel, Standard (09/04/2024 7:59 AM EST) Triglycerides 74 <150 mg/dL [facility] Comment:Desirable Triglyceri de: less than 150 mg/dLBorderline High Triglyceride 150-199 mg/dLHigh Triglyceride: 200-499 mg/dLVery High Triglyceride: greater than or equal to 5OO mg/dL Cholesterol 106 <200 mg/dL [facility] Comment:Desirable Cholestero l: less than 200 mg/dLBorderline High Cholesterol: 200-239 mg/dLHigh Cholesterol: greater than 239 mg/dL LDL Cholesterol Calculated 47 <100 mg/dL [facility] Comment:Desirable LDL: less than 100 mg/dLNear Optimal/Above Optimal LDL: 110- 129 mg/dLBorderline High LDL: 130-159 mg/dLHigh LDL: 160-189 mg/dLVery High LDL: greater than or equal to 190 mg/dL HDL Cholesterol 45 >40 mg/dL [facility] Comment:Desirable HDL: great er than 40 mg/dL Note: This HDL assay may give artificially low results in patients with liver disease. Blood Venous blood specimen / Unknown 09/04/2024 7:59 AM EST 09/04/2024 11:36 AM EST us Niki Simmons MD LAB BLOOD ORDERABLES Final Result [facility] [address] [place] [phone] * (ABNORMAL) Comprehensive Metabolic Panel (09/04/2024 7:59 AM EST) Sodium 143 135 - 145 mmol/L [facility] Potassium 3.8 3.3 - 5.1 mmol/L [facility] Chloride 108 96 - 108 mmol/L [facility] Carbon Dioxide 28 22 - 29 mmol/L [facility] Anion Gap 11(L) 12 - 20 [facility] Urea Nitrogen (BUN) 16 9 - 16 mg/dL [facility] Creatinine, Serum 0.75 0.5 - 1.4 mg/dL [facility] Estimated Glomerular Filt Rate >60 [facility] Comment:Chronic Kidney Disea se: Estimated GFR < 60 mL/min/1.57j9Njbfla Kidney Disease: Estimated GFR < 15 mL/min/1.73m2 Glucose 104 60 - 115 mg/dL [facility] Calcium 8.8 8.4 - 10.2 mg/dL [facility] Bilirubin, Total 0.6 0.0 - 1.0 mg/dL [facility] Aspartate Amino Transferase 27 5 - 37 U/L [facility] Alanine Aminotransferase 35 0 - 40 U/L [facility] Total Protein 6.8 6.5 - 8.0 g/dL [facility] Albumin Level 4.1 3.5 - 5.0 g/dL [facility] Alkaline Phosphatase 47 39 - 117 U/L [facility] Blood Venous blood specimen / Unknown 09/04/2024 7:59 AM EST 09/04/2024 11:36 AM EST us Niki Simmons MD LAB BLOOD ORDERABLES Final Result [facility] [address] [place] [phone] * CT Lung Screening Low dose (06/26/2024 8:49 AM EST) Anatomical Region Laterality Modality Lung Computed Tomogra phy 06/26/2024 8:49 AM EST Narrative 07/19/2024 10:37 AM EST ? [facility] ?[address] ?[place] [address] ? CT Scan Report ? Signed ? Patient: Chinedu,Jayesh ?MR#: [id number] ?? 6 ? : 1950 ?Acct:[id number] ? Age/Sex: 74 / M ?ADM Date: 12/23/24 ? Loc: HO.CT ? Attending Dr: Dm Moraes MD ? Ordering Physician: Dm Moraes MD ?? Date of Service: 06/26/24 ?? Procedure(s): CT lung screening ?? Accession Number(s): [id number] ? cc: Niki Ramos MD; Dm Moraes MD ? Report Number: ?? [id number]: Total DLP = ?? 52.00 mGy-cm ?? [...] ?07/19/24 1034 ? DD/ 0849 ? TD/TT: 06/26/2455 ? Nurse Rn Bsn: MSM ? Procedure Note Emely, Image - 07/19/[address] [place] [address] [address] Scan Report Signed Patient: Jayesh CheMR#: [id number] 6 : 1950Acct:[id number] Age/Sex: 74 / MADM Date: 06/26/24 Loc: HO.CT Attending Dr: Dm Moraes MD Ordering Physician: Dm Moraes MD Date of Service: 06/26/24 Procedure(s): CT lung screening Accession Number(s): [id number] cc: Niki Ramos MD; Dm Moraes MD Report Number: [id number]: Total DLP = 52.00 mGy-cm EXAMINATION: CT [...] 07/19/24 1034 DD/ 0849 TD/TT: 06/26/24 0855 Nurse Rn Bsn: [facility] External Provider IMG CT PROCEDURES Final Result * (ABNORMAL) PSA, Free and Total (06/22/2024 8:58 AM EST) PSA, Total 10.7(A) < OR = 4.0 ng/mL [facility] PSA % Free NOT CALCULATED >25 % (calc) [facility] Comment: PSA(ng/mL) ?Free PSA(%) ? Estimated(x) Probability ? of Cancer(as%)0-2.5 ?(*) ? Approx. 12.6-4.0(1) ? 0-27(2) ? 24(3)4.1-10(4) ?0-10 ?56 ? 11-15 ? 28 ? 16-20 ? 20 ? 21-25 ? 16 ? >or =26 ? 8>10(+) ? N/A ?>50References:(1)Jasper:Urology 60: 469-474 (2002) ? (2)Sangita aguilar al.:J.Urol 168: 922-925 (2002) ?Free PSA(%) ?? Sensitivity(%) ??Specificity(%) ?< or = 25 ?85 ?19 ?< or = 30 ?93 ? 9 ? (3)Sangita et al.:TRICE 277: 1994-3754 (1996) ? (4)Catalona et al.:TRICE 279: 8403-6633 (1997)(x)These estimates vary with age, ethnicity, family [...] presence or absence ofdisease.THIS TEST WAS PERFORMED AT:[employer] [place] [address] ??[phone] LORENZANA MD PSA, Free 1.4 ng/mL [facility] 06/22/2024 8:58 AM EST 06/22/2024 8:58 AM EST us Generic External Data Provider LAB BLOOD ORDERAB LES Final Result [facility] [address] [place] [phone] * Hm Colonoscopy (03/07/2020) us Historical Provider HEALTH MAINTENANCE Final Result from Last 3 Months or Most Recently Relevant to Health Maintenance Insurance DENTAL - [facility] DENTAL - [facility] Care Teams Human Resources Receptionist Relationship Specialty Start Date End Date Niki Ramos MD [address] [place] [phone] PCP - General Family Medicine 03/24/18
--- OUTSIDE RECORDS SUMMARY | 2024-09-13 09:45 | XMS_ITS | Encounter Summary ---
Author Organization [employer] Address [address] [facility] [address] [place] [address] Care Team Providers Care Food Bagging Machine Operator Name Role Phone Niki Ramos MD [...] documented as of this encounter Care Teams Food Bagging Machine Operator Relationship Specialty Start Date End Date Niki Ramos MD [address] [place] [address] PCP - General Family Medicine 03/24/18 documented as of this encounter
--- OUTSIDE RECORDS SUMMARY | 2024-09-13 09:45 | XMS_ITS | Encounter Summary ---
Author Organization [employer] Address [address] [facility] 7t [place] [address] Care Team Providers Care Technology Trainer Name Role Phone Niki Ramos MD Primary Care Provide r Encounter Details Date Type Department Care Team ([facility] st Contact Info) Description 05/27/2022 Abstract [facility] ADULT D[facility]AL [address] [place] [address] Dental, Provider, DDS Social History Tobacco Use [...] on filedocumented in this encounter Care Teams Technology Trainer Relationship Specialty Start Date End Date Niki Ramos MD [address] [place] [address] PCP - General Family Medicine 03/24/18 documented as of this encounter
--- OUTSIDE RECORDS SUMMARY | 2024-09-13 09:45 | XMS_ITS | Encounter Summary ---
Author Organization [employer] Address [address] [facility] [address] [place] [address] Care Team Providers Care Skin Drier Name Role Phone Niki Ramos MD Primary Care Provide r Encounter Details Date Type Department Care Team (Late st Contact Info) Description 07/30/2022 Abstract [facility] ADULT D[facility] [address] [place] [address] Sundeep Felipe, ROBERTO [address] [place] [address] Social History Tobacco Use Types Packs/Day Years [...] on filedocumented in this encounter Care Teams Skin Drier Relationship Specialty Start Date End Date Niki Ramos MD [address] [place] [address] PCP - General Family Medicine 03/24/18 documented as of this encounter
--- OUTSIDE RECORDS SUMMARY | 2024-09-13 09:45 | XMS_ITS | Data Portability ---
Author Organization [employer] [facility], [place] - [facility] Address [address] [place] [phone] Care Team Providers Care Driver Recruiter Name Role Phone [facility] Referring Provider Assessment Encounter Date Assessment Date Assessment LastModified by Organization Details LastModified Time 05/20/2022 05/20/2022 I have reviewed and agree with the Assessment and Plan as documented by the Horologist Apprentice. I provided real -time medical direction via phone for this encounter, and was available for additional phone based assistance as needed. Patient given the opportunity to ask questions. [email or web address] Not available 05/20/2022 13:49:00 Plan of Treatment Reminders Order Date Submit Date Provider Last Modified By Organization Details Last Modified Time Details Appointments None recorded. Lab urinalysis , dipstick 2021 [email or web address] 0 [facility], [address] [place] [address], [phone], 13:53:37 culture, urine 2021 [email or web address] [facility] (Centralized Electronic Ordering - All Locations), Patient Can Go To The Location Of Their Choice, [id number] 08:07:02 Referral None recorded. Procedures None recorded. Surgeries None recorded. Imaging None recorded. Medication Orders Levaquin 500 mg tablet 2021 [facility], [address] [place] [address], [id number], 14:01:24 Levaquin 500 mg tablet 2021 [email or web address] 0 Not available 13:53:37 Pyridium 100 mg tablet 2021 [facility], [address] [place] [address], [id number], 14:01:24 Patient TargetsNo targets recorded. Patient InstructionsNo instructions recorded. Reason for Referral None Reported. Results Created Date Observation Date Name Description Value Unit Range Abnormal Flag Note LastModifiedBy Organization Detail LastModifiedTime 05/20/2005/21/2022 URINE CULTU RE specimen description CLEAN CATCH (URINE ) Not Available [facility] (Centralized Electronic Ordering - All Locations) Patient Can Go To The Location Of Their Choice, [facility] 05/22/2022 08:06:59 05/20/20 22 05/21/2022 URINE CULTU RE special requests NONE Not Available [facility] (Centralized Electronic Ordering - All Locations) Patient Can Go To The Location Of Their Choice, [facility] 05/22/2022 08:06:59 05/20/2005/22/2022 URINE CULTU RE culture NO GROWTH Not Available [facility] (Centralized Electronic Ordering - All Locations) Patient Can Go To The Location Of Their Choice, [facility] 05/22/2022 08:06:59 05/20/2005/22/2022 URINE CULTU RE report status FINAL 2021 Not Available [facility] (Centralized Electronic Ordering - All Locations) Patient Can Go To The Location Of Their Choice, [facility] 05/22/2022 08:06:59 05/20/2005/20/2022 urina lysis , dipst ick Leukocytes trace Not Available Main - [address], [phone], 05/20/2022 13:48:42 05/20/20 22 05/20/2022 urina lysis , dipst ick Nitrite negati ve Not Available Main - Inst ed [address] [place] [address], [phone], 05/20/2022 13:48:42 05/20/20 22 05/20/2022 urina lysis , dipst ick Urobilinogen neg Not Available [facility] [address] [place] [address], [phone], 05/20/2022 13:48:42 05/20/20 22 05/20/2022 urina lysis , dipst ick Protein trace Not Available Main - [facility] [address] [place] [address], [phone], 05/20/2022 13:48:42 05/20/20 22 05/20/2022 urina lysis , dipst ick pH 6 Not Available Main - [facility] [address] [place] [address], [phone], 05/20/2022 13:48:42 05/20/20 22 05/20/2022 urina lysis , dipst ick Blood 50 rbc Not Available Main - [facility] [address] [place] [address], [phone], 05/20/2022 13:48:42 05/20/20 22 05/20/2022 urina lysis , dipst ick Specific Temple 1.010 Not Available Main - Inst[facility] [address] [place] [address], [phone], 05/20/2022 13:48:42 05/20/20 22 05/20/2022 urina lysis , dipst ick Ketone neg Not Available Main - [facility] [address] [place] [address], [phone], 05/20/2022 13:48:42 05/20/20 22 05/20/2022 urina lysis , dipst ick Bilirubin neg Not Available Main - I nsted [address] [place] [address], [phone], 05/20/2022 13:48:42 05/20/20 22 05/20/2022 urina lysis , dipst ick Glucose neg Not Available Main - [facility] [address] [place] [address], [phone], 05/20/2022 13:48:42 05/20/20 22 05/20/2022 urina lysis , dipst ick Appearance sl cloudy Not Available Main - Inst [facility] [address] [place] [address], [phone], 05/20/2022 13:48:42 05/20/20 22 05/20/2022 urina lysis , dipst ick Color pink Not Available Main - [facility] [address] [place] [address], [place], [phone], 05/20/2022 13:48:42 Result Notes None recorded. Medical Equipment None Reported. Allergies Allergen ID Allergen Name Allergen Category Reaction Reaction Severity Criticality Documentation Date Start Date Code Code System Note Provider Name and Address Organization Details Recorded Time 1313 acetamino phen / oxycodone medicatio n Not available Not available Not available 05/20/2022 85191 3 RxNorm Michelle Sharif MD [address] [facility],[address], [place], [phone], [facility] - [employer] 2 13:46:59 8126 acetamino phen medicatio n [...] Not Available No t Available [facility] 10 billion cell-200 mg sprinkle [...] Details Last Updated DateTime 2 98.3 [degF] 24190.5 36 g 67 /min 96 % 96 % 18 /min 167.64 cm 98.3 [degF] 96 % 96 % 18 /min 67 /min 167.64 cm 62270.5 36 g 123 mm[Hg] 85 mm[Hg] 123 [...] Michelle Sharif MD Main - instED [address] [place] [phone] 05/20/2022 13:39:36 05/22/2022 12:40:50 Acute urinary tract infection [id number] N39.0 advised to push fluids- f/u with [...] Member ID Guarantor Name 05/20/[address] [facility] - DOS PRIOR TO 2022 - DUAL ELIGIBLE (MEDICARE REPLACEMENT/ADV ANTAGE - HMO) Jayesh Che [id number] Jayesh Che Notes Date Note Type Note Provider Name and Address Organization Details Recorded Time 05/20/2022 text/html HPI: 72 year old, Tuvaluan speaking male, reporting dysuria with penile pain [...] to process visit SEGMD: Pt interviewed w/ worm grower- only has penile pain inside when he [...] .................... .................... .................... .................... .................... .................... ...... Horologist Apprentice Note: Sent to a call for a pt complaining of dysuria and penile pain x 2-3 days. SC8 arrives on scene, pt is alert and oriented. Airway is patent. Pt's primary language is Tuvaluan; manager file line used during visit. Pt complains of [...] clear, concentrated; Urine dip: results uploaded to [facility]. [facility] orders Levofloxacin 500mg PO and urine culture to be sent to [facility]. Pt advised to take Tylenol 500mg q 6hrs prn, increase oral hydration, and follow up with urologist. Levofloxacin administered without incident. [facility] sends script to pt's pharmacy for Levofloxacin and Pyridium. Red flags discussed. Pt has no further questions. .................... .................... .................... .................... .................... .................... .................... . Disposition: Fulfilled Michelle Sharif MD [address] [facility],[address], [place], [address], [facility] - [employer], ANGÉLICA 05/20/2022 14:33:50
--- OUTSIDE RECORDS SUMMARY | 2024-09-13 09:45 | XMS_ITS | Encounter Summary ---
Author Organization [employer] Address [address] [facility] [address] [place] [address] Care Team Providers Care Swatcher Name Role Phone Niki Ramos MD Primary Care Provide r Encounter Details Date Type Department Care Team (Late st Contact Info) Description 08/31/2024 Orders Only [facility] MEDICINE [address] [place] [address] Niki Ramos MD [address] [place] [address] Vitamin D deficiency (Primary Dx) Social History Tobacco Use Types Packs/Day Years [...] as of this encounter Visit Diagnoses Diagnosis Vitamin D deficiency- Primary documented in this encounter Additional Health Concerns Assessment Noted Time PHQ-9 Depression Total Score: 0 10/04/19 24 9:42 AM EDT documented as of this encounter Care Teams Swatcher Relationship Specialty Start Date End Date Niki Ramos MD [address] [place] [phone] PCP - General Family Medicine 03/24/18 documented as of this encounter
--- OUTSIDE RECORDS SUMMARY | 2024-09-13 09:45 | XMS_ITS | Encounter Summary ---
Author Organization [employer] Address [address] [facility] 7t [place] [address] Care Team Providers Care Meringuer Name Role Phone Niki Ramos MD Primary Care Provide r Encounter Details Date Type Department Care Team (Latest Contact Info) Description 04/09/2022 Abstract [facility] CONVERSIONS Dental, Provider, DDS Social History [...] on filedocumented in this encounter Care Teams Meringuer Relationship Specialty Start Date End Date Niki Ramos MD [address] [place] [address] PCP - General Family Medicine 03/24/18 documented as of this encounter
--- OUTSIDE RECORDS SUMMARY | 2024-09-13 09:45 | XMS_ITS | Encounter Summary ---
Author Organization [employer] Address [address] [place] [address] Care Team Providers Care Clinical Nursing Coordinator Name Role Phone Niki Ramos MD Primary Care Provide r Encounter Details Date Type Department Care Team (Late st Contact Info) Description 02/19/2023 Orders Only [facility] [address] [place] [address] Janelle Jones LPN Social History Tobacco Use [...] documented as of this encounter Care Teams Clinical Nursing Coordinator Relationship Specialty Start Date End Date Niki Ramos MD [address] [place] [address] PCP - General Family Medicine 03/24/18 documented as of this encounter
--- OUTSIDE RECORDS SUMMARY | 2024-09-13 09:45 | XMS_ITS | Encounter Summary ---
Author Organization [employer] Address [address] [facility] 7t [place] [address] Care Team Providers Care Well Driller Name Role Phone Nkii Ramos MD Primary Care Provide r Encounter Details Date Type Department Care Team (Latest Contact Info) Description 11/08/2018 Abstract [facility] CONVERSIONS Dental, Provider, DDS Social [...] on filedocumented in this encounter Care Teams Well Driller Relationship Specialty Start Date End Date Niki Ramos MD [address] [place] [address] PCP - General Family Medicine 03/24/18 documented as of this encounter
--- OUTSIDE RECORDS SUMMARY | 2024-09-13 09:45 | XMS_ITS | Encounter Summary ---
Author Organization [employer] Address [address] [facility] 7t [place] [address] Care Team Providers Care Manager Financial Planning Name Role Phone Niki Ramos MD Primary Care Provide r Encounter Details Date Type Department Care Team (Late st Contact Info) Description 06/22/[address] [facility] ADULT DENTAL [address] [place] [address] Sachin Chow, DMD [address] [place] [address] Social History Tobacco Use Types Packs/Day Years [...] on filedocumented in this encounter Care Teams Manager Financial Planning Relationship Specialty Start Date End Date Niki Ramos MD [address] [place] [address] PCP - General Family Medicine 03/24/18 documented as of this encounter
--- OUTSIDE RECORDS SUMMARY | 2024-09-13 09:45 | XMS_ITS | Encounter Summary ---
Author Organization [email or web address] Address [address] [facility] 7[address] [place] [address] Care Team Providers Care Cryptological Technician Name Role Phone Niki Ramos MD Primary Care Provide r Encounter Details Date Type Department Care Team ([facility] st Contact Info) Description 09/01/2024 10:45 AM EST Office Visit [facility] MEDICINE [address] [place] [address] Niki Ramos MD [address] [place], [place] [phone] Pruritus (Primary Dx); Mood disorder (CMS/HCC); Essential [...] Procedure Name Priority Date/Time Associated Diagnosis Comments VITAMIN D,25-OH,TOTAL,IA Routine 09/04/2024 7:59 AM EST Pruritus TSH W/REFLEX TO FT4 Routine 09/04/2024 7 :59 AM EST Pruritus CBC WITH AUTO DIFFERENTIAL Routine 09/04/2024 7:59 AM EST Pruritus HEPATITIS C AB W/REFL TO HCV RNA, QN, PCR Routine 09/04/2024 7:59 AM EST Pruritus HIV 1/2 ANTIGEN/ANTIBODY, FOURTH GENERATION W/RFL Routine 09/04/2024 7:59 AM EST Pruritus HEMOGLOBIN A1C Routine 09/04/2024 7:59 AM EST Pruritus LIPID PANEL, STANDARD Routine 09/04/2024 7:59 AM EST Pruritus COMPREHENSIVE METABOLIC PANEL Routine 09/04/2024 7:59 AM EST Pruritus documented in this encounter Results * TSH with Reflex to Free T4 (09/04/2024 7:59 AM EST) TSH reflex Free T4 1.23 0.32 - 4.0 uIU/mL [facility] Blood Venous blood specimen / Unknown 09/04/2024 7:59 AM EST 09/04/2024 11:36 AM EST Niki Simmons MD LAB BLOOD ORDERABLES Final Result Performing Organization Address [facility] Co de Phone Number [facility] [address] [place] [phone] * (ABNORMAL) Vitamin D, 25-Hydroxy, Total, Immunoassay (09/04/2024 7:59 AM EST) Vitamin D 25-OH Total 26.9(L) >30 ng/mL [facility] Comment:Health Based Referen ce Values*< 20 ng/mL [id number] ng/mL Insufficient> 30 ng/mL Sufficient*Leora CANDELARIA. N [...] BLOOD ORDERABLES Final Result Performing Organization Address [facility]/ZIP Co de Phone Number [facility] [address] [place] [phone] * Lipid Panel, Standard (09/04/2024 7:59 AM EST) Triglycerides 74 <150 mg/dL [facility] Comment:Desirable Triglyceri de: less than 150 mg/dLBorderline High Triglyceride 150-199 mg/dLHigh Triglyceride: 200-499 mg/dLVery High Triglyceride: greater than or equal to 5OO mg/dL Cholesterol 106 <200 mg/dL [facility] Comment:Desirable Cholestero l: less than 200 mg/dLBorderline High Cholesterol: 200-239 mg/dLHigh Cholesterol: greater than 239 mg/dL LDL Cholesterol Calculated 47 <100 mg/dL [facility] Comment:Desirable LDL: less than 100 mg/dLNear Optimal/Above Optimal LDL: 110- 129 mg/dLBorderline High LDL: 130-159 mg/dLHigh LDL: 160-189 mg/dLVery High LDL: greater than or equal to 190 mg/dL HDL Cholesterol 45 >40 mg/dL [facility] Comment:Desirable HDL: great er than 40 mg/dL Note: This HDL assay may give artificially low results in patients with liver disease. Blood Venous blood specimen / Unknown 09/04/2024 7:59 AM EST 09/04/2024 11:36 AM EST us Niki Simmons MD LAB BLOOD ORDERABLES Final Result Performing Organization Address [facility] Co de Phone Number [facility] [address] [place] [phone] * Hepatitis C Antibody with Reflex to HCV, RNA, Quantitative, Real-Time PCR (09/04/2024 7:59 AM EST) Hepatitis C Antibody Nonreactive Nonreactive [facility] Comment:Antibodies to HCV no t detected; does not exclude early acuteHCV infection. Blood Venous blood specimen / Unknown 09/04/2024 7:59 AM EST 09/04/2024 11:36 AM EST us Niki Simmons MD LAB BLOOD ORDERABLES Final Result Performing Organization Address [facility] Co de Phone Number [facility] [address] [place] [phone] * HIV-1/2 Antigen and Antibodies, Fourth Generation, with Reflexes (09/04/2024 7:59 AM EST) HIV AB/AG Nonreactive Nonreactive [facility] Comment:HIV-1 p24 Ag and/or HIV-1/HIV-2 Ab not detected.A test result that is nonreactive does not exclude thepossibility of exposure to or infection with HIV-1 and/orHIV-2. Nonreactive results in this assay for individualswith prior exposure to HIV-1 and/or HIV-2 may be due toantigen and antibody levels that are below the limit ofdetection of this assay.The [employer] HIV Ag/Ab Combo assay result andsupplemental assay results should be interpreted inconjunction with the patient's clinical presentation,history and other laboratory results. If the results areinconsistent with clinical evidence, additional testing issuggested to confirm the result. Blood Venous blood specimen / Unknown 09/04/2024 7:59 AM EST 09/04/2024 11:36 AM EST us Niki Simmons MD LAB BLOOD ORDERABLES Final Result [facility] [address] [place] [phone] * Hemoglobin A1c (09/04/2024 7:59 AM EST) Hemoglobin A1c 5.7 <6.0 % [facility] Comment:Hemoglobin A1C Refer ence Range Adults: 4.8 - 6.0 % Non diabetic: < 6.0 % Goal: < 7.0 %Additional Action Suggested: > 8.0 %Note: Hemoglobin A1c results are invalid for patients with abnormal amounts of HbF. Blood transfusions may impact the HbA1c concentration in the patient sample. Estimated Average Glucose 117 mg/dL [facility] Comment:eAG = Estimated ave rage glucose which is %A1C expressed asaverage glucose, using the formula of the [id number] Glucose study (ADAG), Diabetes Care, Vol.31,#8,Feb. 2007 Blood Venous blood specimen / Unknown 09/04/2024 7:59 AM EST 09/04/2024 11:36 AM EST us Niki Simmons MD LAB BLOOD ORDERABLES Final Result Performing Organization Address City/[facility]/ZIP Co de Phone Number [facility] [address] [place] [phone] * (ABNORMAL) Comprehensive Metabolic Panel (09/04/2024 7:59 AM EST) Sodium 143 135 - 145 mmol/L [facility] Potassium 3.8 3.3 - 5.1 mmol/L [facility] Chloride 108 96 - 108 mmol/L [facility] Carbon Dioxide 28 22 - 29 mmol/L [facility] Anion Gap 11(L) 12 - 20 [facility] Urea Nitrogen (BUN) 16 9 - 16 mg/dL [facility] Creatinine, Serum 0.75 0.5 - 1.4 mg/dL [facility] Estimated Glomerular Filt Rate >60 [facility] Comment:Chronic Kidney Disea se: Estimated GFR < 60 mL/min/1.64n7Urqnjo Kidney Disease: Estimated GFR < 15 mL/min/1.73m2 Glucose 104 60 - 115 mg/dL [facility] Calcium 8.8 8.4 - 10.2 mg/dL [facility] Bilirubin, Total 0.6 0.0 - 1.0 mg/dL [facility] Aspartate Amino Transferase 27 5 - 37 U/L [facility] Alanine Aminotransferase 35 0 - 40 U/L [facility] Total Protein 6.8 6.5 - 8.0 g/dL [facility] Albumin Level 4.1 3.5 - 5.0 g/dL [facility] Alkaline Phosphatase 47 39 - 117 U/L [facility] Blood Venous blood specimen / Unknown 09/04/2024 7:59 AM EST 09/04/2024 11:36 AM EST us Niki Simmons MD LAB BLOOD ORDERABLES Final Result Performing Organization Address City/[facility]/ZIP Co de Phone Number [facility] [address] [place] [phone] * (ABNORMAL) CBC auto differential (09/04/2024 7:59 AM EST) White Blood Count 3.7(L) 4.8 - 10.8 X10*3/uL [facility] Red Blood Count 4.93 4.60 - 5.80 X10*6/uL [facility] Hemoglobin 14.1 14.0 - 18.0 g/dl [facility] Hematocrit 43.3 42.0 - 52.0 % [facility] Mean Corpuscular Volume 87.8 80.0 - 98.0 fL [facility] Mean Corpuscular Hemoglobin 28.6 27.0 - 33.0 pg [facility] Mean Corpuscular HGB Conc 32.6 31.0 - 36.0 g/dl [facility] Red Cell Distribution Width 12.6 11.0 - 16.0 % [facility] Platelet Count 180 160 - 400 X10*3/uL [facility] Mean Platelet Volume 10.5 9.4 - 12.4 fL [facility] Neutrophils Percent Auto 64.0 45 - 73 % [facility] Imm Gran Pct Auto 0.3 0.0 - 0.4 % [facility] Lymphocytes Percent Auto 23.6 20 - 40 % [facility] Monocytes Percent Auto 7.0 2 - 11 % [facility] Eosinophils Percent Auto 4.3(H) 0 - 4 % [facility] Basophils Percent Auto 0.8 0 - 2 % [facility] NRBC Pct Auto 0.0 0.0 - 0.2 /100WBC [facility] Neutrophils Absolute Auto 2.4 2.0 - 8.3 x10*3/uL [facility] Imm Gran Abs Auto 0.01 0.00 - 0.03 X10*3/uL [facility] Lymphocytes Absolute Auto 0.9(L) 1.2 - 4.9 X10*3/uL [facility] Monocytes Absolute Auto 0.3 0.1 - 1.2 X10*3/uL [facility] Eosinophils Absolute Auto 0.2 0.0 - 0.4 X10*3/uL [facility] Basophils Absolute Auto 0.0 0.0 - 0.2 X10*3/uL [facility] NRBC Abs Auto 0.000 0.0 - 0.012 X10*3/uL [facility] Blood Venous blood specimen / Unknown 09/04/2024 7:59 AM EST 09/04/2024 11:36 AM EST us Nkii Simmons MD LAB BLOOD ORDERABLES Final Result [facility] [address] [place] [phone] documented in this encounter Visit Diagnoses Diagnosis Pruritus- Primary [...] documented as of this encounter Care Teams Cryptological Technician Relationship Specialty Start Date End Date Niki Ramos MD [address] [place] [phone] PCP - General Family Medicine 03/24/18 documented as of this encounter
== END ==
LOC: HO.CARD 09:08
PROVIDERS: PCP Internal Medicine; Visit Provider Internal Medicine
DX: R07.2 Precordial pain (principal)
CPT/HCPCS: 78452; 93017; A9500; J0280; J2785

== ENCOUNTER → 2024-09-13 09:11 | Outpatient (BNV) | payer OTHER, SELFPAY | PROVIDERS: PCP Internal Medicine | DX: I49.1 Atrial premature depolarization (principal); I49.3 Ventricular premature depolarization | CPT/HCPCS: 78452; 93016; 93018 ==

== ENCOUNTER → 2024-09-18 14:48 | Outpatient (BNVA) | payer OTHER, SELFPAY | PROVIDERS: PCP Internal Medicine; Visit Provider Nurse Practitioner Family | DX: R07.2 Precordial pain (principal); R00.2 Palpitations; I10 Essential (primary) hypertension; J45.909 Unspecified asthma, uncomplicated | CPT/HCPCS: 99212 ==

== ENCOUNTER 2024-09-18 15:25 | Outpatient (AMB) | payer OTHER, SELFPAY ==
--- NOTE | 2024-09-18 15:20 | MHC.OFFVIS ---
Vital Signs 09/18/24 15:22 Height 5 ft 6 in Weight 154 lb BMI 24.9 BP 104/62 Blood Pressure Location Lt brachial Position Sitting Pulse 63 Pulse Source Pulse Oximeter Intake Visit Reasons: 3m follow up Checkering Machine Adjuster Required: Yes Checkering Machine Adjuster Language: Plastic Surgeon Name: voice zach flanagan [id number] Allergies oxycodone [From PERCOCET] Allergy (Unknown, Verified 09/18/24 15:23) HIVES HPI HPI 3m follow up: Details: Jayesh is a 74-year-old male with past medical history of asthma, hypertension, peripheral vascular disease who reported chest discomfort and shortness of breath on last visit. He underwent a stress test and an echocardiogram was ordered however not completed for unclear reason. He now presents for follow-up. Today he reports that he has been getting shortness of breath with exertional activities. He also notices his heart beating fast at times causing him concern. He has been using his asthma inhaler as needed. He denies having pain in his chest area. No lightheadedness, presyncope, syncope, PND, orthopnea or edema. He reports compliance with his meds. He walks routinely for exercise. Certified manager freelance used. [facility] Medical History (Updated 09/18/24 @ 16:43 by Mary Solis, PERRY-C) Vitamin D deficiency Hematuria PVD (peripheral vascular disease) Esophageal dysphagia BPH loc w urin obs/LUTS Asthma HTN (hypertension) Surgical History Hx of colonoscopy History of surgery Hx of prostatectomy Family History Father No problems noted. Mother No problems noted. Social History Alcohol intake: former Patient Tobacco Use Status: Former Tobacco user Years Smoked: started in his 20's, quit 13 years ago Review of Systems Const All systems reviewed & are unremarkable except as noted in HPI and below Card Denies chest pain, Denies chest pain at rest, Denies chest pain with activity, Reports rapid heart rate, Denies pedal edema, Denies edema, Denies leg edema, Denies lightheadedness, Reports palpitations, Denies dyspnea, Reports dyspnea on exertion and Denies orthopnea Resp Denies cough, Denies dyspnea and Reports dyspnea on exertion GI Denies hematochezia and Denies change in stool character Musc Denies abnormal gait, Denies limited range of motion, Denies muscle cramps, Denies muscle weakness, Denies numbness, Denies radiating pain into limb, Denies stiffness and Denies tingling Neuro Denies abnormal gait, Denies numbness and Denies tingling Endo Reports palpitations Physical Exam Vital Signs: Last Vital Signs Pulse 63 09/18/24 15:22 BP 104/62 09/18/24 15:22 BMI result Body Mass Index 24.9 Const General: cooperative, healthy appearing, comfortable and no acute distress Orientation/consciousness: patient oriented x3 Neck Neck: Yes normal visual inspection Resp Effort & Inspection: normal respiratory effort Auscultation: clear to auscultation bilaterally, no rales, no rhonchi and no wheezes Cardio Rate: regular rate Rhythm: regular rhythm Heart sounds: S1 normal heart sound present, S2 normal heart sound present, no gallops, no murmurs and no rubs Skin General skin exam: no rashes or lesions noted Neuro General: patient oriented x3 Extrem General: Yes normal to inspection, No no pedal edema and No calf tenderness Psych Appearance: grossly normal Mental Status: mental status grossly normal Speech and movement: Normal speech and movement present Assessment & Plan Assessment & Plan (1) Precordial chest pain: Code(s): R07.2 - Precordial pain Category: Medical Plan: Prior reports of chest discomfort, also having shortness of breath with exertional activities. Cardiac evaluation for these symptoms in 2022 showed possible inferior lateral hypokinesis. On his exercise stress test he had decreased exercise capacity, moderate shortness of breath with no EKG changes of ischemia. He recently presented again with ongoing symptoms. A nuclear stress test was done 09/13/2024 with exercise 5 minutes, mild shortness of breath, no EKG changes and no clear ischemia, fixed inferior defect likely diaphragm attenuation. Test results reviewed with him and offered reassurance. Echocardiogram ordered, not completed as of yet. Will have him pursue echocardiogram and plan to call him with results. Signs and symptoms of angina reviewed. Emergency care if needed for symptoms. Office visit 4-6 weeks, sooner if needed. (2) Palpitations: Code(s): R00.2 - Palpitations Category: Medical Plan: Reports of heart palpitations along with his shortness of breath. Pulse is regular on examination. It is possible this is sinus tachycardia in the setting of asthma and use of albuterol inhaler. Will check Holter monitor to assess for any arrhythmia. (3) HTN (hypertension): Code(s): I10 - Essential (primary) hypertension Category: Medical Plan: Well controlled. No med changes made. (4) Asthma: Code(s): J45.909 - Unspecified asthma, uncomplicated Category: Medical Plan: Likely contributes to his symptom of shortness of breath and chest tightness/discomfort. Checking echo to reassess for wall motion abnormality. Plan Time spent on chart review, documentation, interview and assessment Orders: Orders CA echo transthoracic complete Today R07.2 - Precordial pain ECG 3 day holter monitor Today R00.2 - Palpitations Coding Level of Care Code Est Pt Level 4 (44917) Complex EM visit Add On G2211 Diagnoses Precordial chest pain R07.2 Palpitations R00.2 HTN (hypertension) I10 Asthma J45.909 Time Spent (min) 28
[2024-09-18 15:22] VITALS: BP 104/62; PULSE 63; BMI 24.9
--- OUTSIDE RECORDS SUMMARY | 2024-09-18 17:22 | XMS_ITS | Encounter Summary ---
Author Organization [employer] Address [address] [facility] 7t [place] [address] Care Team Providers Care Bacon Skinner Name Role Phone Niki Ramos MD Primary Care Provide r Reason for Visit * Reason Onset Date Comments Medication Question 08/31/2024 Encounter Details Date Type Department Care Team ([facility] st Contact Info) Description 08/31/[address] [facility] MEDICINE [address] [place] [address] Niki Ramos MD [address] [place] [address] Medication Question Social History Tobacco Use Types [...] 08/31/2024 3:47 PM EST TC returned to [facility] [phone] to inform the zolpidem medication is NOT rx'd by PCP. Magali advised to contact psychiatry office (Aarti Wynn) to further discuss. Magali verbalized understanding. Magali to f/u PRN. * Telephone Encounter - Denilson Davison - 08/31/2024 11:01 AM EST TC from Magali a CEMENT TESTER ASSISTANT with [facility] wanting to discuss Zolpidem .. Pt reports although takes as prescribedmedication doesn't really due much for him . Magali states given patients age and risk factor , script should be canceled and patient should be prescribed melatonin if he has not already tried it . Magali would like an update so she may update patients chart aswell. Magali [phone] documented in this encounter Plan of Treatment Not on file documented as of this encounter Visit Diagnoses Not on filedocumented in this encounter Additional Health Concerns Assessment Noted Time PHQ-9 Depression Total Score: 0 10/04/19 24 9:42 AM EDT documented as of this encounter Care Teams Bacon Skinner Relationship Specialty Start Date End Date Niki Ramos MD [facility] [place] [address] PCP - General Family Medicine 03/24/18 documented as of this encounter
--- OUTSIDE RECORDS SUMMARY | 2024-09-18 17:22 | XMS_ITS | Encounter Summary ---
Author Organization [employer] Address [address] [facility] [address] [place] [address] Care Team Providers Care Evening Sitter Name Role Phone Niki Ramos MD Primary Care Provide r Encounter Details Date Type Department Care Team (Late st Contact Info) Description 02/19/2023 Orders Only [facility] MED & PEDS [address] [place] [address] Janelle Jones LPN Social History Tobacco Use [...] documented as of this encounter Care Teams Evening Sitter Relationship Specialty Start Date End Date Niki Ramos MD [address] [place] [address] PCP - General Family Medicine 03/24/18 documented as of this encounter
--- OUTSIDE RECORDS SUMMARY | 2024-09-18 17:22 | XMS_ITS | Encounter Summary ---
Author Organization [employer] Address [address] [facility] [address] [place] [address] Care Team Providers Care Associate Financial Analyst Name Role Phone Niki Ramos MD Primary Care Provide r Encounter Details Date Type Department Care Team (Late st Contact Info) Description 08/31/2024 Orders Only [facility] MEDICINE [address] [place] [address] Niki Ramos MD [address] [place] [address] Vitamin D deficiency (Primary Dx) Social History [...] documented as of this encounter Care Teams Associate Financial Analyst Relationship Specialty Start Date End Date Niki Ramos MD [address] [place] [address] PCP - General Family Medicine 03/24/18 documented as of this encounter
--- OUTSIDE RECORDS SUMMARY | 2024-09-18 17:22 | XMS_ITS | Encounter Summary ---
Author Organization [employer] Address [address] [facility] [address] [place] [address] Care Team Providers Care Child Center Assistant Name Role Phone Niki Ramos MD Primary Care Provide r Encounter Details Date Type Department Care Team (Latest Contact Info) Description 04/09/2022 Abstract [facility] CONVERSION[facility] Dental, Provider, DDS Social [...] on filedocumented in this encounter Care Teams Child Center Assistant Relationship Specialty Start Date End Date Niki Ramos MD [address] [place] [address] PCP - General Family Medicine 03/24/18 documented as of this encounter
--- OUTSIDE RECORDS SUMMARY | 2024-09-18 17:22 | XMS_ITS | Encounter Summary ---
Author Organization [employer] Address [address] [facility] 7t [place] [address] Care Team Providers Care Caretaker Resort Name Role Phone Niki Ramos MD Primary Care Provide r Encounter Details Date Type Department Care Team ([facility] st Contact Info) Description 05/27/2022 Abstract [facility] ADULT DENTAL [address] [place] [address] Dental, Provider, DDS Social History Tobacco Use [...] on filedocumented in this encounter Care Teams Caretaker Resort Relationship Specialty Start Date End Date Niki Ramos MD [address] [place] [address] PCP - General Family Medicine 03/24/18 documented as of this encounter
--- OUTSIDE RECORDS SUMMARY | 2024-09-18 17:22 | XMS_ITS | Data Portability ---
Author Organization [facility] [place] - Replaced by [facility] Address [address] [place] [phone] Care Team Providers Care Manufacturing Sr Engineer Name Role Phone [facility] Referring Provider [phone] Assessment Encounter Date Assessment Date Assessment LastModified by Organization Details LastModified Time 05/20/2022 05/20/2022 I have reviewed and agree with the Assessment and Plan as documented by the Fundraising Director. I provided real -time medical direction via phone for this encounter, and was available for additional phone based assistance as needed. Patient given the opportunity to ask questions. Not available 05/20/2022 13:49:00 Plan of Treatment Reminders Order Date Submit Date Provider Last Modified By Organization Details Last Modified Time Details Appointments None recorded. Lab urinalysis , dipstick 2021 [email or web address] [facility], [address] [place] [address], [id number], 13:53:37 culture, urine 2021 [place] [facility] (Centralized Electronic Ordering - All Locations), Patient Can Go To The Location Of Their Choice, [id number] 08:07:02 Referral None recorded. Procedures None recorded. Surgeries None recorded. Imaging None recorded. Medication Orders Levaquin 500 mg tablet 2021 [facility], [address] [place] [address], [id number], 14:01:24 Levaquin 500 mg tablet 2021 [email or web address] 0 Not available 13:53:37 Pyridium 100 mg tablet 2021 [facility], [address] [place] [address], [id number], 14:01:24 Patient TargetsNo targets recorded. Patient InstructionsNo instructions recorded. Reason for Referral None Reported. Results Created Date Observation Date Name Description Value Unit Range Abnormal Flag Note LastModifiedBy Organization Detail LastModifiedTime 05/20/2005/21/2022 URINE CULTU RE specimen description CLEAN CATCH (URINE ) Not Available [facility] (Centralized Electronic Ordering - All Locations) Patient Can Go To The Location Of Their Choice, [facility] 05/22/2022 08:06:59 05/20/20 22 05/21/2022 URINE CULTU RE special requests NONE Not Available [facility] (Centralized Electronic Ordering - All Locations) Patient Can Go To The Location Of Their Choice, [facility] 05/22/2022 08:06:59 05/20/2005/22/2022 URINE CULTU RE culture NO GROWTH Not Available [facility] (Centralized Electronic Ordering - All Locations) Patient Can Go To The Location Of Their Choice, [facility] 05/22/2022 08:06:59 05/20/2005/22/2022 URINE CULTU RE report status FINAL 2021 Not Available [facility] (Centralized Electronic Ordering - All Locations) Patient Can Go To The Location Of Their Choice, [facility] 05/22/2022 08:06:59 05/20/2005/20/2022 urina lysis , dipst ick Leukocytes trace Not Available Main - [address], [phone], 05/20/2022 13:48:42 05/20/20 22 05/20/2022 urina lysis , dipst ick Nitrite negati ve Not Available Main - Inst ed [address] [place] [address], [phone], 05/20/2022 13:48:42 05/20/20 22 05/20/2022 urina lysis , dipst ick Urobilinogen neg Not Available [facility] [address] [place] [address], [phone], 05/20/2022 13:48:42 05/20/20 22 05/20/2022 urina lysis , dipst ick Protein trace Not Available Main - Ins im[facility] [address] [place] [address], [phone], 05/20/2022 13:48:42 05/20/20 22 05/20/2022 urina lysis , dipst ick pH 6 Not Available Main - [facility] [address] [place] [address], [phone], 05/20/2022 13:48:42 05/20/20 22 05/20/2022 urina lysis , dipst ick Blood 50 rbc Not Available Main - [facility] [address] [place] [address], [phone], 05/20/2022 13:48:42 05/20/20 22 05/20/2022 urina lysis , dipst ick Specific [place] 1.010 Not Available Main - Inst[facility] [address] [place] [address], [phone], 05/20/2022 13:48:42 05/20/20 22 05/20/2022 urina lysis , dipst ick Ketone neg Not Available Main - [facility] [address] [place] [address], [phone], 05/20/2022 13:48:42 05/20/20 22 05/20/2022 urina lysis , dipst ick Bilirubin neg Not Available Main - I nsted [address] [place] [address], [phone], 05/20/2022 13:48:42 05/20/20 22 05/20/2022 urina lysis , dipst ick Glucose neg Not Available Main - Ins [facility] [address] [place] [address], [phone], 05/20/2022 13:48:42 05/20/20 22 05/20/2022 urina lysis , dipst ick Appearance sl cloudy Not Available Main - Inst ed [address] [place] [address], [phone], 05/20/2022 13:48:42 05/20/20 22 05/20/2022 urina lysis , dipst ick Color pink Not Available Main - Ins [facility] [address] [place] [address], [place], [address], 05/20/2022 13:48:42 Result Notes None recorded. Medical Equipment None Reported. Allergies Allergen ID Allergen Name Allergen Category Reaction Reaction Severity Criticality Documentation Date Start Date Code Code System Note Provider Name and Address Organization Details Recorded Time 1313 acetamino phen / oxycodone medicatio n Not available Not available Not available 05/20/2022 65315 3 RxNorm Michelle Sharif MD [address] [facility],[address], [place], [address], [facility] - [employer] 2 13:46:59 8126 acetamino phen medicatio n [...] Not Available Not Available No t Available [facility] 10 billion cell-200 mg [...] Details Last Updated DateTime 2 98.3 [degF] 89620.5 36 g 67 /min 96 % 96 % 18 /min 167.64 cm 98.3 [degF] 96 % 96 % 18 /min 67 /min 167.64 cm 08394.5 36 g 123 mm[Hg] 85 mm[Hg] 123 [...] Michelle Sharif MD Main - instED [address] [place] [address] 05/20/2022 13:39:36 05/22/2022 12:40:50 Acute urinary tract infection 869311517 N39.0 advised to push fluids- f/u with [...] Riojas Member ID Guarantor Name 05/20/2022 1 [facility] - DOS PRIOR TO 2022 - DUAL ELIGIBLE (MEDICARE REPLACEMENT/ADV ANTAGE - HMO) Jayesh Che [id number] Jayesh Che Notes Date Note Type Note Provider Name and Address Organization Details Recorded Time 05/20/2022 text/html HPI: 72 year old, Citizen Of [place] speaking male, reporting dysuria with penile pain [...] to process visit SEGMD: Pt interviewed w/ ferris wheel operator- only has penile pain inside when [...] .................... .................... .................... .................... .................... .................... ...... Fundraising Director Note: Sent to a call for a pt complaining of dysuria and penile pain x 2-3 days. SC8 arrives on scene, pt is alert and oriented. Airway is patent. Pt's primary language is [place]; test engineering manager line used during visit. Pt complains of [...] clear, concentrated; Urine dip: results uploaded to [email or web address]. [facility] orders Levofloxacin 500mg PO and urine culture to be sent to [facility]. Pt advised to take Tylenol 500mg q 6hrs prn, increase oral hydration, and follow up with urologist. Levofloxacin administered without incident. [facility] sends script to pt's pharmacy for Levofloxacin and Pyridium. Red flags discussed. Pt has no further questions. .................... .................... .................... .................... .................... .................... .................... . Disposition: Fulfilled Michelle Sharif MD [address] [facility],[address], [place], [address], [employer], ANGÉLICA 05/20/2022 14:33:50
--- OUTSIDE RECORDS SUMMARY | 2024-09-18 17:22 | XMS_ITS | Encounter Summary ---
Author Organization [employer] Address [address] [facility] 7t [place] [address] Care Team Providers Care Brooch Maker Novelty Name Role Phone Niki Ramos MD Primary [...] documented as of this encounter Care Teams Brooch Maker Novelty Relationship Specialty Start Date End Date Niki Ramos MD [address] [place] [address] PCP - General Family Medicine 03/24/18 documented as of this encounter
--- OUTSIDE RECORDS SUMMARY | 2024-09-18 17:22 | XMS_ITS | Encounter Summary ---
Author Organization [employer] Address [address] [facility] [address] [place] [address] Care Team Providers Care Service Superintendent Name Role Phone Niki Ramos MD Primary Care Provide r Encounter Details Date Type Department Care Team (Late st Contact Info) Description 03/12/2023 Orders Only [facility] MEDICINE [address] [place] [address] Provider, Yao, Social History Tobacco Use Types [...] documented as of this encounter Care Teams Service Superintendent Relationship Specialty Start Date End Date Niki Ramos MD [address] [place] [address] PCP - General Family Medicine 03/24/18 documented as of this encounter
--- OUTSIDE RECORDS SUMMARY | 2024-09-18 17:22 | XMS_ITS | Encounter Summary ---
Author Organization [employer] Address [address] [facility] [address] [place] [address] Care Team Providers Care Crawler Crane Operator Name Role Phone Niki Ramos MD Primary Care Provide r Encounter Details Date Type Department Care Team (Late st Contact Info) Description 06/05/2022 Abstract [facility] ADULT DENTAL [address] [place] [address] Sundeep Felipe DMD [address] [place] [address] Social History Tobacco Use Types Packs/Day Years [...] on filedocumented in this encounter Care Teams Crawler Crane Operator Relationship Specialty Start Date End Date Niki Ramos MD [address] [place] [address] PCP - General Family Medicine 03/24/18 documented as of this encounter
--- OUTSIDE RECORDS SUMMARY | 2024-09-18 17:22 | XMS_ITS | Encounter Summary ---
Author Organization [employer] Address [address] [facility] [address] [place] [address] Care Team Providers Care Nuclear Powerplant Supervisor Name Role Phone Niki Ramos MD Primary Care Provide r Encounter Details Date Type Department Care Team ([facility] st Contact Info) Description 09/01/2024 10:45 AM EST Office Visit [facility] [address] [place] [address] Niki Ramos MD [address] [place] [phone] Pruritus (Primary Dx); Mood disorder (CMS/HCC); Essential [...] Free T4 1.23 0.32 - 4.0 uIU/mL [facility] Blood Venous blood specimen / Unknown 09/04/2024 7:59 AM EST 09/04/2024 11:36 AM EST Niki Simmons MD LAB BLOOD ORDERABLES Final Result Performing Organization Address [facility] Co de Phone Number [facility] [address] [place] [phone] * (ABNORMAL) Vitamin D, 25-Hydroxy, Total, Immunoassay (09/04/2024 7:59 AM EST) Vitamin D 25-OH Total 26.9(L) >30 ng/mL [facility] Comment:Health Based Referen ce Values*< 20 ng/mL Hpinvumbj10-28 ng/mL Insufficient> 30 ng/mL Sufficient*Leora CANDELARIA. N [...] ORDERABLES Final Result Performing Organization Address [facility]/ZIP Co de Phone Number [facility] [address] [place] [address] [phone] * Lipid Panel, Standard (09/04/2024 7:59 AM EST) Triglycerides 74 <150 mg/dL [facility] Comment:Desirable Triglyceri de: less than 150 mg/dLBorderline High Triglyceride 150-199 mg/dLHigh Triglyceride: 200-499 mg/dLVery High Triglyceride: greater than or equal to 5OO mg/dL Cholesterol 106 <200 mg/dL [facility] Comment:Desirable Cholestero l: less than 200 mg/dLBorderline High Cholesterol: 200-239 mg/dLHigh Cholesterol: greater than 239 mg/dL LDL Cholesterol Calculated 47 <100 mg/dL [facility] Comment:Desirable LDL: less than 100 mg/dLNear Optimal/Above Optimal LDL: 110- 129 mg/dLBorderline High LDL: 130-159 mg/dLHigh LDL: 160-189 mg/dLVery High LDL: greater than or equal to 190 mg/dL HDL Cholesterol 45 >40 mg/dL [facility] Comment:Desirable HDL: great er than 40 mg/dL Note: This HDL assay may give artificially low results in patients with liver disease. Blood Venous blood specimen / Unknown 09/04/2024 7:59 AM EST 09/04/2024 11:36 AM EST us Niki Simmons MD LAB BLOOD ORDERABLES Final Result Performing Organization Address [facility] Co de Phone Number [facility] [address] [place] [phone] * Hepatitis C Antibody with Reflex to HCV, RNA, Quantitative, Real-Time PCR (09/04/2024 7:59 AM EST) Hepatitis C Antibody Nonreactive Nonreactive [facility] Comment:Antibodies to HCV no t detected; does not exclude early acuteHCV infection. Blood Venous blood specimen / Unknown 09/04/2024 7:59 AM EST 09/04/2024 11:36 AM EST us Niki Simmons MD LAB BLOOD ORDERABLES Final Result Performing Organization Address [facility] Co de Phone Number [facility] [address] [place] [phone] * HIV-1/2 Antigen and Antibodies, Fourth Generation, with Reflexes (09/04/2024 7:59 AM EST) HIV AB/AG Nonreactive Nonreactive [facility] Comment:HIV-1 p24 Ag and/or HIV-1/HIV-2 Ab not detected.A test result that is nonreactive does not exclude thepossibility of exposure to or infection with HIV-1 and/orHIV-2. Nonreactive results in this assay for individualswith prior exposure to HIV-1 and/or HIV-2 may be due toantigen and antibody levels that are below the limit ofdetection of this assay.The [employer] HIV Ag/Ab Combo assay result andsupplemental assay results should be interpreted inconjunction with the patient's clinical presentation,history and other laboratory results. If the results areinconsistent with clinical evidence, additional testing issuggested to confirm the result. Blood Venous blood specimen / Unknown 09/04/2024 7:59 AM EST 09/04/2024 11:36 AM EST us Niki Simmons MD LAB BLOOD ORDERABLES Final Result [facility] [address] [place] [phone] * Hemoglobin A1c (09/04/2024 7:59 AM EST) Hemoglobin A1c 5.7 <6.0 % [facility] Comment:Hemoglobin A1C Refer ence Range Adults: 4.8 - 6.0 % Non diabetic: < 6.0 % Goal: < 7.0 %Additional Action Suggested: > 8.0 %Note: Hemoglobin A1c results are invalid for patients with abnormal amounts of HbF. Blood transfusions may impact the HbA1c concentration in the patient sample. Estimated Average Glucose 117 mg/dL [facility] Comment:eAG = Estimated ave rage glucose which is %A1C expressed asaverage glucose, using the formula of the D1P-RzmcqhnAlsdokl Glucose study (ADAG), Diabetes Care, Vol.31,#8,Feb. 2007 Blood Venous blood specimen / Unknown 09/04/2024 7:59 AM EST 09/04/2024 11:36 AM EST us Niki Simmons MD LAB BLOOD ORDERABLES Final Result Performing Organization Address [facility]/ZIP Co de Phone Number [facility] [address] [place] [phone] * (ABNORMAL) Comprehensive Metabolic Panel (09/04/2024 7:59 AM EST) Sodium 143 135 - 145 mmol/L [facility] Potassium 3.8 3.3 - 5.1 mmol/L [facility] Chloride 108 96 - 108 mmol/L [facility] Carbon Dioxide 28 22 - 29 mmol/L [facility] Anion Gap 11(L) 12 - 20 [facility] Urea Nitrogen (BUN) 16 9 - 16 mg/dL [facility] Creatinine, Serum 0.75 0.5 - 1.4 mg/dL [facility] Estimated Glomerular Filt Rate >60 [facility] Comment:Chronic Kidney Disea se: Estimated GFR < 60 mL/min/1.60l2Atnwrq Kidney Disease: Estimated GFR < 15 mL/min/1.73m2 Glucose 104 60 - 115 mg/dL [facility] Calcium 8.8 8.4 - 10.2 mg/dL [facility] Bilirubin, Total 0.6 0.0 - 1.0 mg/dL [facility] Aspartate Amino Transferase 27 5 - 37 U/L [facility] Alanine Aminotransferase 35 0 - 40 U/L [facility] Total Protein 6.8 6.5 - 8.0 g/dL [facility] Albumin Level 4.1 3.5 - 5.0 g/dL [facility] Alkaline Phosphatase 47 39 - 117 U/L [facility] Blood Venous blood specimen / Unknown 09/04/2024 7:59 AM EST 09/04/2024 11:36 AM EST us Niki Simmons MD LAB BLOOD ORDERABLES Final Result Performing Organization Address [facility]/ZIP Co de Phone Number [facility] [address] [place] [phone] * (ABNORMAL) CBC auto differential (09/04/2024 7:59 AM EST) White Blood Count 3.7(L) 4.8 - 10.8 X10*3/uL [facility] Red Blood Count 4.93 4.60 - 5.80 X10*6/uL [facility] Hemoglobin 14.1 14.0 - 18.0 g/dl [facility] Hematocrit 43.3 42.0 - 52.0 % [facility] Mean Corpuscular Volume 87.8 80.0 - 98.0 fL [facility] Mean Corpuscular Hemoglobin 28.6 27.0 - 33.0 pg [facility] Mean Corpuscular HGB Conc 32.6 31.0 - 36.0 g/dl [facility] Red Cell Distribution Width 12.6 11.0 - 16.0 % [facility] Platelet Count 180 160 - 400 X10*3/uL [facility] Mean Platelet Volume 10.5 9.4 - 12.4 fL [facility] Neutrophils Percent Auto 64.0 45 - 73 % [facility] Imm Gran Pct Auto 0.3 0.0 - 0.4 % [facility] Lymphocytes Percent Auto 23.6 20 - 40 % [facility] Monocytes Percent Auto 7.0 2 - 11 % [facility] Eosinophils Percent Auto 4.3(H) 0 - 4 % [facility] Basophils Percent Auto 0.8 0 - 2 % [facility] NRBC Pct Auto 0.0 0.0 - 0.2 /100WBC [facility] Neutrophils Absolute Auto 2.4 2.0 - 8.3 x10*3/uL [facility] Imm Gran Abs Auto 0.01 0.00 - 0.03 X10*3/uL [facility] Lymphocytes Absolute Auto 0.9(L) 1.2 - 4.9 X10*3/uL [facility] Monocytes Absolute Auto 0.3 0.1 - 1.2 X10*3/uL [facility] Eosinophils Absolute Auto 0.2 0.0 - 0.4 X10*3/uL [facility] Basophils Absolute Auto 0.0 0.0 - 0.2 X10*3/uL [facility] NRBC Abs Auto 0.000 0.0 - 0.012 X10*3/uL [facility] Blood Venous blood specimen / Unknown 09/04/2024 7:59 AM EST 09/04/2024 11:36 AM EST us Niki Simmons MD LAB BLOOD ORDERABLES Final Result [facility] [address] [place] [phone] documented in this encounter Visit Diagnoses [...] documented as of this encounter Care Teams Nuclear Powerplant Supervisor Relationship Specialty Start Date End Date Niki Ramos MD [address] [place] [phone] PCP - General Family Medicine 03/24/18 documented as of this encounter
--- OUTSIDE RECORDS SUMMARY | 2024-09-18 17:22 | XMS_ITS | Encounter Summary ---
Author Organization [employer] Address [address] [facility] [address] [place] [address] Care Team Providers Care Blow Up Operator Name Role Phone Niki Ramos MD Primary Care Provide r Reason for Visit * Reason Comments Dentures Encounter Details Date Type Department Care Team ([facility] st Contact Info) Description 08/24/2024 10:00 AM EST Office Visit [facility] [address] [place] [address] Sundeep Felipe, DMD [address] [place] [address] Social History Tobacco Use Types Packs/Day Years [...] documented as of this encounter Care Teams Blow Up Operator Relationship Specialty Start Date End Date Niki Ramos MD [address] [place] [phone] PCP - General Family Medicine 03/24/18 documented as of this encounter
--- OUTSIDE RECORDS SUMMARY | 2024-09-18 17:22 | XMS_ITS | Clinical Summary ---
Author Organization [employer] Address [address] [facility] 7[address] [place] [address] Care Team Providers Care Management Trainee Name Role Phone Niki Ramos MD Primary [...] TO EMERGENCY ROOM 2 each 1 Active budesonide-formo terol (Symbicort) 160-4.5 MCG/ACT inhalerIndicatio [...] ONCE DAILY BEFORE MEALS 90 capsule 2 Active montelukast (Singulair) 10 MG tabletIndication s:Asthma in adult, mild intermittent, uncomplicated TAKE 1 TABLET BY MOUTH ONCE DAILY AT BEDTIME 30 tablet 2 Active omeprazole (PriLOSEC) [address] capsule TAKE 1 CAPSULE BY MOUTH ONCE DAILY BEFORE MEALS 90 capsule 2 024 2024 Discontinued montelukast (Singulair) 10 MG tabletIndication s:Asthma in adult, mild intermittent, uncomplicated TAKE 1 TABLET BY MOUTH EVERY DAY AT BEDTIME 30 tablet 2 024 2024 Discontinued Active Problems Problem [...] PM EST): I will refer him to learning and development specialist Allergy 07/12/2023 Dyspnea on exertion 01/12/2023 [...] for change. PLAN: 1. Follow up with [facility] [place]: Not recommended for follow-up 2. Patient goal is to continue OP therapy and explore additional coping mechanisms. 3. Behavioral Recommendations a. OP therapy b. Coping mechanisms- deep breathing [facility]. [facility] respite program Resolved Problems Problem Noted Date Diagnosed Date Resolved Date Aneurysm of right iliac artery 01/19/2020 09/01/2024 Dilatation of aorta 09/17/2017 09/01/19 25 Encounters Date Type Department Care Team Description 09/16/[address] [facility] [address] [place] [address] Niki Ramos MD Asthma in adult, mild intermittent, uncomplicated 09/13/2024 Orders Only [facility] External Provider, [facility] 09/12/[address] [facility] [address] [place] [address] Niki Ramos MD 09/04/[address] [facility] [address] [place] [address] Niki Ramos MD Results 09/04/2024 Orders Only GENERIC EXTERNAL DATA DEPARTMENT Provider, Generic External Data 09/01/2024 10:45 AM EST Office Visit [facility] [address] [place] [address] Niki Ramos MD Pruritus (Primary Dx); Mood disorder ([facility]/HCC); Essential hypertension; Colon cancer screening; Benign prostatic hyperplasia with lower urinary tract symptoms, symptom details unspecified 09/01/2024 Travel 08/31/[address] [facility] [address] [place] [address] Niki Ramos MD Vitamin D deficiency (Primary Dx) 08/31/[address] [facility] [address] [place] [address] Niki Ramos MD Medication Question 08/24/2024 10:00 AM EST Office Visit [facility] [address] [place] [address] Sundeep Felipe DMD 07/10/2024 10:00 AM EST Office Visit [facility] [address] [place] [address] Sundeep Felipe DMD 06/26/2024 Orders Only [facility] External Provider, [facility] 06/22/2024 Orders Only GENERIC EXTERNAL DATA DEPARTMENT Provider, Generic External Data from Last 3 Months Immunizations Name Administration [...] 10/03/2024 10/04/2023, 10/04/19 Tobacco Screening 08/24/2025 08/24/2024 Diabetes: Hemoglobin A1C [...] Procedure Name Priority Date/Time Associated Diagnosis Comments STRESS TEST WITH MYOCARDIAL PERFUSION Routine 09/13/2024 9:40 AM EDT PSA, TOTAL WITH REFLEX TO PSA, FREE [...] PSA, FREE Routine 06/22/2024 7:57 AM EST HM COLONOSCOPY Routine 03/07/2020 from Last 3 Months or Most Recently Relevant to Health Maintenance Results * Stress test with myocardial perfusion (09/13/2024 9:40 AM EDT) 09/13/2024 9:40 AM EDT Narrative [facility] - 09/17/2024 11:42 AM EDT ? [facility] ?[address] ?[place] [address] ?Nuclear Medicine Report ? Signed ? Patient: Che,Jayesh ?MR#: [id number] ?? 6 ? : 1950 ?Acct:[id number] ? Age/Sex: 74 / M ?ADM Date: 03/12/25 ? Loc: HO.CARD ? Attending Dr: Ralph Lyman MD ? Ordering Physician: Ralph Lyman MD ?? Date of Service: 09/13/24 ?? Procedure(s): NM cardiolite stress test ?? Accession Number(s): [id number] ? cc: Niki Ramos MD; Ralph Lyman MD ? EXERCISE MYOCARDIAL PERFUSION STUDY ? INDICATION: ?? Chest pain ? TECHNIQUE: ? The patient was brought in for an exercise perfusion study on ?? 09/13/2024. Patient performed exercise as per Aries protocol and was ?? injected ??25 mCi of sestamibi once target heart rate was achieved. ?? Images were obtained using the SPECT gamma camera interlaced with the ?? gating device. Images were obtained in supine position. ? Resting perfusion study was performed on 09/15/2024. Patient was ?? administered 25 mCi of sestamibi intravenously at rest. Images were ?? then obtained in supine position. Total DLP 77 mGy-cm. ? Images were processed with the software and compared side to side in ?? short axis, horizontal long axis and vertical long axis views. ? FINDINGS: ? Raw aquisition reviewed. ? The stress perfusion study showed ??decreased tracer uptake along the ?? inferior wall. With CT attenuation correction, there is improved uptake ?? suggestive of diaphragmatic attenuation artifact. The gated study shows ?? normal LV systolic function with calculated LVEF of 69%. LV cavity is ?? normal in size. The gated study shows normal ??wall thickening and ?? contraction of segments. ? Resting study shows diminished tracer uptake along the inferior wall. ?? There is improvement with CT attenuation correction suggestive of ?? diaphragmatic attenuation artifact. Gating at rest reveals normal wall ?? motion with ejection fraction at 55%. ? The findings are consistent with fixed inferior perfusion defect. No ?? clear reversible defects. ? NM/NM cardiolite stress test ?? IMPRESSION: ? 1. ??Myocardial perfusion imaging study shows no clear evidence of ?? ischemia or infarction. Fixed inferior defect probably from ?? diaphragmatic attenuation artifact. ?? 2. ??Gated LVEF is 69% during stress and 55% during rest. ?? 3. Transient ischemic dilatation not present. ? EKG component of the test reported separately. ? Electronically signed by: ??Ralph Lyman MD ??09/17/2024 11:39 ?? AM EDT RP ? Dictated By: ?Ralph Lyman MD ? Signed By: ?<Electronically signed by Ralph Lyman MD in OV> ?09/17/24 1139 ? DD/ 0940 ? TD/TT: 09/15/24 1210 ? Office Services Specialist: ? Procedure Note Donotuseinterpreter, Image - 09/17/[address] [address] Nuclear Medicine Report Signed Patient: Luis Che#: [id number] 6 : 1950Acct:[id number] Age/Sex: 74 / MADM Date: 09/13/24 Loc: SEL[facility] Attending Dr: Ralph Lyman MD Ordering Physician: Ralph Lyman MD Date of Service: 09/13/24 Procedure(s): NM cardiolite stress test Accession Number(s): [id number] cc: Niki Ramos MD; Ralph Lyman MD EXERCISE MYOCARDIAL PERFUSION STUDY INDICATION: Chest pain TECHNIQUE: The patient was brought in for an exercise perfusion study on 09/13/2024. Patient performed exercise as per Aries protocol and was injected 25 mCi of sestamibi once target heart rate was achieved. Images were obtained using the SPECT gamma camera interlaced with the gating device. Images were obtained in supine position. Resting perfusion study was performed on 09/15/2024. Patient was administered 25 mCi of sestamibi intravenously at rest. Images were then obtained in supine position. Total DLP 77 mGy-cm. Images were processed with the software and compared side to side in short axis, horizontal long axis and vertical long axis views. FINDINGS: Raw aquisition reviewed. The stress perfusion study showed decreased tracer uptake along the inferior wall. With CT attenuation correction, there is improved uptake suggestive of diaphragmatic attenuation artifact. The gated study shows normal LV systolic function with calculated LVEF of 69%. LV cavity is normal in size. The gated study shows normal wall thickening and contraction of segments. Resting study shows diminished tracer uptake along the inferior wall. There is improvement with CT attenuation correction suggestive of diaphragmatic attenuation artifact. Gating at rest reveals normal wall motion with ejection fraction at 55%. The findings are consistent with fixed inferior perfusion defect. No clear reversible defects. NM/NM cardiolite stress test IMPRESSION: 1. Myocardial perfusion imaging study shows no clear evidence of ischemia or infarction. Fixed inferior defect probably from diaphragmatic attenuation artifact. 2. Gated LVEF is 69% during stress and 55% during rest. 3. Transient ischemic dilatation not present. EKG component of the test reported separately. Electronically signed by: Ralph Lyman MD 09/17/2024 11:39 AM EDT RP Dictated By: Ralph Lyman MD Signed By: <Electronically signed by Ralph Lyamn MD inOV> 09/17/24 1139 DD/ 0940 TD/TT: 09/15/24 1210 Office Services Specialist: us [facility] External Provider CV STRE SS PROCEDURES Final Result [facility] [address] [place] [phone] * (ABNORMAL) Vitamin D, 25-Hydroxy, Total, Immunoassay (09/04/2024 7:59 AM EST) Vitamin D 25-OH Total 26.9(L) >30 ng/mL [facility] Comment:Health Based Referen ce Values*< 20 ng/mL [id number] ng/mL Insufficient> 30 ng/mL Sufficient*Leora CANDELARIA. N [...] Simmons MD LAB BLOOD ORDERABLES Final Result [facility] [address] [place] [phone] * TSH with Reflex to Free T4 (09/04/2024 7:59 AM EST) TSH reflex Free T4 1.23 0.32 - 4.0 uIU/mL [facility] Blood Venous blood specimen / Unknown 09/04/2024 7:59 AM EST 09/04/2024 11:36 AM EST us Niki Simmons MD LAB BLOOD ORDERABLES Final Result Performing Organization Address [facility] Co de Phone Number [facility] [address] [place] [phone] * (ABNORMAL) PSA, Total With Reflex to PSA, Free (09/04/2024 7:59 AM EST) Only the most recent of2 resultswithin the time period is included. PSA,Total (Free>4and<10) 10.94(H ) 0.00 - 4.00 ng/mL [facility] Comment:A Free PSA was not [...] Provider LAB BLOOD ORDERAB LES Final Result [facility] [address], [place] [phone] * (ABNORMAL) CBC auto differential (09/04/2024 7:59 AM EST) White Blood Count 3.7(L) 4.8 - 10.8 X10*3/uL [facility] Red Blood Count 4.93 4.60 - 5.80 X10*6/uL [facility] Hemoglobin 14.1 14.0 - 18.0 g/dl [facility] Hematocrit 43.3 42.0 - 52.0 % [facility] Mean Corpuscular Volume 87.8 80.0 - 98.0 fL [facility] Mean Corpuscular Hemoglobin 28.6 27.0 - 33.0 pg [facility] Mean Corpuscular HGB Conc 32.6 31.0 - 36.0 g/dl [facility] Red Cell Distribution Width 12.6 11.0 - 16.0 % [facility] Platelet Count 180 160 - 400 X10*3/uL [facility] Mean Platelet Volume 10.5 9.4 - 12.4 fL [facility] Neutrophils Percent Auto 64.0 45 - 73 % [facility] Imm Gran Pct Auto 0.3 0.0 - 0.4 % [facility] Lymphocytes Percent Auto 23.6 20 - 40 % [facility] Monocytes Percent Auto 7.0 2 - 11 % [facility] Eosinophils Percent Auto 4.3(H) 0 - 4 % [facility] Basophils Percent Auto 0.8 0 - 2 % [facility] NRBC Pct Auto 0.0 0.0 - 0.2 /100WBC [facility] Neutrophils Absolute Auto 2.4 2.0 - 8.3 x10*3/uL [facility] Imm Gran Abs Auto 0.01 0.00 - 0.03 X10*3/uL [facility] Lymphocytes Absolute Auto 0.9(L) 1.2 - 4.9 X10*3/uL [facility] Monocytes Absolute Auto 0.3 0.1 - 1.2 X10*3/uL [facility] Eosinophils Absolute Auto 0.2 0.0 - 0.4 X10*3/uL [facility] Basophils Absolute Auto 0.0 0.0 - 0.2 X10*3/uL [facility] NRBC Abs Auto 0.000 0.0 - 0.012 X10*3/uL [facility] Blood Venous blood specimen / Unknown 09/04/2024 7:59 AM EST 09/04/2024 11:36 AM EST Niki Simmons MD LAB BLOOD ORDERABLES Final Result Performing Organization Address [facility] Co de Phone Number [facility] [address] [place] [phone] * Hepatitis C Antibody with Reflex to HCV, RNA, Quantitative, Real-Time PCR (09/04/2024 7:59 AM EST) Hepatitis C Antibody Nonreactive Nonreactive [facility] Comment:Antibodies to HCV no t detected; does not exclude early acuteHCV infection. Blood Venous blood specimen / Unknown 09/04/2024 7:59 AM EST 09/04/2024 11:36 AM EST Niki Simmons MD LAB BLOOD ORDERABLES Final Result Performing Organization Address City/[facility]/ZIP Co de Phone Number [facility] [address] [place] [phone] * HIV-1/2 Antigen and Antibodies, Fourth Generation, with Reflexes (09/04/2024 7:59 AM EST) HIV AB/AG Nonreactive Nonreactive [facility] Comment:HIV-1 p24 Ag and/or HIV-1/HIV-2 Ab not detected.A test result that is nonreactive does not exclude thepossibility of exposure to or infection with HIV-1 and/orHIV-2. Nonreactive results in this assay for individualswith prior exposure to HIV-1 and/or HIV-2 may be due toantigen and antibody levels that are below the limit ofdetection of this assay.The [employer] HIV Ag/Ab Combo assay result andsupplemental assay results should be interpreted inconjunction with the patient's clinical presentation,history and other laboratory results. If the results areinconsistent with clinical evidence, additional testing issuggested to confirm the result. Blood Venous blood specimen / Unknown 09/04/2024 7:59 AM EST 09/04/2024 11:36 AM EST us Niki Simmons MD LAB BLOOD ORDERABLES Final Result Performing Organization Address [facility]/ZIP Co de Phone Number [facility] [address] [place] [phone] * Hemoglobin A1c (09/04/2024 7:59 AM EST) Hemoglobin A1c 5.7 <6.0 % [facility] Comment:Hemoglobin A1C Refer ence Range Adults: 4.8 - 6.0 % Non diabetic: < 6.0 % Goal: < 7.0 %Additional Action Suggested: > 8.0 %Note: Hemoglobin A1c results are invalid for patients with abnormal amounts of HbF. Blood transfusions may impact the HbA1c concentration in the patient sample. Estimated Average Glucose 117 mg/dL [facility] Comment:eAG = Estimated ave rage glucose which is %A1C expressed asaverage glucose, using the formula of the R2D-LcxtjrxAvdcapz Glucose study (ADAG), Diabetes Care, Vol.31,#8,Feb. 2007 Blood Venous blood specimen / Unknown 09/04/2024 7:59 AM EST 09/04/2024 11:36 AM EST us Niki Simmons MD LAB BLOOD ORDERABLES Final Result Performing Organization Address [facility]/ZIP Co de Phone Number [facility] [address] [place] [phone] * Lipid Panel, Standard (09/04/2024 7:59 AM EST) Triglycerides 74 <150 mg/dL [facility] Comment:Desirable Triglyceri de: less than 150 mg/dLBorderline High Triglyceride 150-199 mg/dLHigh Triglyceride: 200-499 mg/dLVery High Triglyceride: greater than or equal to 5OO mg/dL Cholesterol 106 <200 mg/dL [facility] Comment:Desirable Cholestero l: less than 200 mg/dLBorderline High Cholesterol: 200-239 mg/dLHigh Cholesterol: greater than 239 mg/dL LDL Cholesterol Calculated 47 <100 mg/dL [facility] Comment:Desirable LDL: less than 100 mg/dLNear Optimal/Above Optimal LDL: 110- 129 mg/dLBorderline High LDL: 130-159 mg/dLHigh LDL: 160-189 mg/dLVery High LDL: greater than or equal to 190 mg/dL HDL Cholesterol 45 >40 mg/dL [facility] Comment:Desirable HDL: great er than 40 mg/dL Note: This HDL assay may give artificially low results in patients with liver disease. Blood Venous blood specimen / Unknown 09/04/2024 7:59 AM EST 09/04/2024 11:36 AM EST us Niki Simmons MD LAB BLOOD ORDERABLES Final Result [facility] [address] [place] [phone] * (ABNORMAL) Comprehensive Metabolic Panel (09/04/2024 7:59 AM EST) Sodium 143 135 - 145 mmol/L [facility] Potassium 3.8 3.3 - 5.1 mmol/L [facility] Chloride 108 96 - 108 mmol/L [facility] Carbon Dioxide 28 22 - 29 mmol/L [facility] Anion Gap 11(L) 12 - 20 [facility] Urea Nitrogen (BUN) 16 9 - 16 mg/dL [facility] Creatinine, Serum 0.75 0.5 - 1.4 mg/dL [facility] Estimated Glomerular Filt Rate >60 [facility] Comment:Chronic Kidney Disea se: Estimated GFR < 60 mL/min/1.77o3Ipkrix Kidney Disease: Estimated GFR < 15 mL/min/1.73m2 Glucose 104 60 - 115 mg/dL [facility] Calcium 8.8 8.4 - 10.2 mg/dL [facility] Bilirubin, Total 0.6 0.0 - 1.0 mg/dL [facility] Aspartate Amino Transferase 27 5 - 37 U/L [facility] Alanine Aminotransferase 35 0 - 40 U/L [facility] Total Protein 6.8 6.5 - 8.0 g/dL [facility] Albumin Level 4.1 3.5 - 5.0 g/dL [facility] Alkaline Phosphatase 47 39 - 117 U/L [facility] Blood Venous blood specimen / Unknown 09/04/2024 7:59 AM EST 09/04/2024 11:36 AM EST us Niki Simmons MD LAB BLOOD ORDERABLES Final Result [facility] [address] [place] [phone] * CT Lung Screening Low dose (06/26/2024 8:49 AM EST) Anatomical Region Laterality Modality Lung Computed Tomogra phy 06/26/2024 8:49 AM EST Narrative 07/19/2024 10:37 AM EST ? [facility] ?[address] ?[place] [address] ? CT Scan Report ? Signed ? Patient: Che,Jayesh ?MR#: [id number] ?? 6 ? : 1950 ?Acct:[id number] ? Age/Sex: 74 / M ?ADM Date: 12/23/24 ? Loc: HO.CT ? Attending Dr: Dm Moraes MD ? Ordering Physician: Dm Moraes MD ?? Date of Service: 06/26/24 ?? Procedure(s): CT lung screening ?? Accession Number(s): [id number] ? cc: Niki Ramos MD; Dm Moraes MD ? Report Number: ?? [id number]: Total DLP = ?? 52.00 mGy-cm ?? [...] DD/ 0849 ? TD/TT: 06/26/24 0855 ? Office Services Specialist: MSM ? Procedure Note Emely, Image - 07/19/[address] [place] [address] [address] Scan Report Signed Patient: Jayesh CheMR#: [id number] 6 : 1950Acct:[id number] Age/Sex: 74 / MADM Date: 06/26/24 Loc: HO.CT Attending Dr: Dm Moraes MD Ordering Physician: Dm Moraes MD Date of Service: 06/26/24 Procedure(s): CT lung screening Accession Number(s): [id number] cc: Niki Ramos MD; Dm Moraes MD Report Number: [id number]: Total DLP = 52.00 mGy-cm EXAMINATION: CT [...] 07/19/24 1034 DD/ 0849 TD/TT: 06/26/24 0855 Office Services Specialist: [facility] External Provider IMG CT PROCEDURES Final Result * (ABNORMAL) PSA, Free and Total (06/22/2024 8:58 AM EST) PSA, Total 10.7(A) < OR = 4.0 ng/mL [facility] PSA % Free NOT CALCULATED >25 % (calc) [facility] Comment: PSA(ng/mL) ?Free PSA(%) ? [...] ? 9 ? (3)Sangita et al.:TRICE 277: 1229-4107 (1996) ? (4)Catalona et al.:TRICE 279: 3635-5985 (1997)(x)These estimates vary with age, ethnicity, family [...] presence or absence ofdisease.THIS TEST WAS PERFORMED AT:[facility] [place] [address] ??[phone] LORENZANA MD PSA, Free 1.4 ng/mL [facility] 06/22/2024 8:58 AM EST 06/22/2024 8:58 AM EST us Generic External Data Provider LAB BLOOD ORDERAB LES Final Result [facility] [address] [place] [phone] * Hm Colonoscopy (03/07/2020) us Historical Provider HEALTH MAINTENANCE Final Result from Last 3 Months or Most Recently Relevant to Health Maintenance Insurance DENTAL - [facility] [employer] DENTAL - [facility] [employer] Care Teams Management Trainee Relationship Specialty Start Date End Date Niki Ramos MD [address] [place] [phone] PCP - General Family Medicine 03/24/18
--- OUTSIDE RECORDS SUMMARY | 2024-09-18 17:23 | XMS_ITS | Encounter Summary ---
Author Organization [employer] Address [address] [facility] [address] [place] [address] Care Team Providers Care Landscape Architecture Professor Name Role Phone Niki Ramos MD Primary Care Provide r Encounter Details Date Type Department Care Team (Late st Contact Info) Description 09/03/2022 Abstract [facility] [address] [place] [address] Sundeep Felipe, ROBERTO [address] [place] [address] Social History Tobacco Use Types Packs/Day Years [...] on filedocumented in this encounter Care Teams Landscape Architecture Professor Relationship Specialty Start Date End Date Niki Ramos MD [address] [place] [address] PCP - General Family Medicine 03/24/18 documented as of this encounter
--- OUTSIDE RECORDS SUMMARY | 2024-09-18 17:23 | XMS_ITS | Encounter Summary ---
Author Organization [employer] Address [address] [facility] [address] [place] [address] Care Team Providers Care Slip Bridge Operator Name Role Phone Niki Ramos MD Primary Care Provide r Reason for Visit * Reason Comments Med Refill Encounter Details Date Type Department Care Team ([facility] st Contact Info) Description 09/12/2024 Refill [facility] [address] [place] [phone] Niki Ramos MD [address] [place] [address] Social History Tobacco Use Types Packs/Day Years [...] documented as of this encounter Care Teams Slip Bridge Operator Relationship Specialty Start Date End Date Niki Ramos MD [address] [place] [phone] PCP - General Family Medicine 03/24/18 documented as of this encounter
--- OUTSIDE RECORDS SUMMARY | 2024-09-18 17:23 | XMS_ITS | Encounter Summary ---
Author Organization [employer] Address [address] [facility] [place] [address] Care Team Providers Care Lcac Operator Name Role Phone Niki Ramos MD Primary Care Provide r Encounter Details Date Type Department Care Team ([facility] st Contact Info) Description 09/04/2024 Orders [...] (Free>4and<10) 10.94(H ) 0.00 - 4.00 ng/mL [facility] Comment:A Free PSA was [...] Provider LAB BLOOD ORDERAB LES Final Result [facility] [address] [place] [phone] documented in this encounter Visit Diagnoses Not on filedocumented in this encounter Additional Health Concerns Assessment Noted Time PHQ-9 Depression Total Score: 0 10/04/19 24 9:42 AM EDT documented as of this encounter Care Teams Lcac Operator Relationship Specialty Start Date End Date Niki Ramos MD [address] [place] [phone] PCP - General Family Medicine 03/24/18 documented as of this encounter
--- OUTSIDE RECORDS SUMMARY | 2024-09-18 17:23 | XMS_ITS | Encounter Summary ---
Author Organization [employer] Address [address] [facility] [address] [place] [address] Care Team Providers Care Special Forces Weapons Sergeant Name Role Phone Niki Ramos MD Primary Care Provide r Encounter Details Date Type Department Care Team (Late st Contact Info) Description 09/13/2024 Orders Only [facility] External Provider, [facility] Social History Tobacco Use Types Packs/Day [...] MYOCARDIAL PERFUSION Routine 09/13/2024 9:40 AM EDT documented in this encounter Results * Stress test with myocardial perfusion (09/13/2024 9:40 AM EDT) 09/13/2024 9:40 AM EDT Narrative [facility] IMAGING - 09/17/2024 11:42 AM EDT ? [facility] ?[address] ?[place] [address] ?Nuclear Medicine Report ? Signed ? Patient: Jayesh Che ?MR#: [id number] ?? 6 ? : 1950 ?Acct:[id number] ? Age/Sex: 74 / M ?ADM Date: 09/13/24 ? Loc: HO.CARD ? Attending Dr: Ralph Lyman MD ? Ordering Physician: Ralph Lyman MD ?? Date of Service: 09/13/24 ?? Procedure(s): NM cardiolite stress test ?? Accession Number(s): [id number] ? cc: Niki Ramos MD; Ralph Lyman [...] Lyman MD ??09/17/2024 11:39 ?? AM EDT ? Dictated By: ?Ralph Lyman MD ? Signed By: ?<Electronically signed by Ralph Lyman MD in OV> ?09/17/24 1139 ? DD/ 0940 ? TD/TT: 09/15/24 1210 ? Tearoom Hostess: ? Procedure Note Emely, Vik - 09/17/[address] [address] Nuclear Medicine Report Signed Patient: Luis Che#: [id number] 6 : 1950Acct:[id number] Age/Sex: 74 / MADM Date: 09/13/24 Loc: SELAM Attending Dr: Ralph Lyman MD Ordering Physician: Ralph Lyman MD Date of Service: 09/13/24 Procedure(s): FL cardiolite stress test Accession Number(s): [id number] cc: Niki Ramos MD; Ralph Lyman MD [...] inferior perfusion defect. No clear reversible defects. NM/FL cardiolite stress test IMPRESSION: 1. Myocardial perfusion imaging study shows no clear evidence of ischemia or infarction. Fixed inferior defect probably from diaphragmatic attenuation artifact. 2. Gated LVEF is 69% during stress and 55% during rest. 3. Transient ischemic dilatation not present. EKG component of the test reported separately. Electronically signed by: Ralph Lyman MD 09/17/2024 11:39 AM EDT Dictated By: Ralph Lyman MD Signed By: <Electronically signed by Ralph Lyman MD inOV> 09/17/24 1139 DD/ 0940 TD/TT: 09/15/24 1210 Tearoom Hostess: us [facility] External Provider CV STRE SS PROCEDURES Final Result [facility] IMAGING [address] [place] [address] documented in this encounter Visit Diagnoses Not on filedocumented in this encounter Additional Health Concerns Assessment Noted Time PHQ-9 Depression Total Score: 0 10/04/19 24 9:42 AM EDT documented as of this encounter Care Teams Special Forces Weapons Sergeant Relationship Specialty Start Date End Date Niki Ramos MD [address] [place] [address] PCP - General Family Medicine 03/24/18 documented as of this encounter
--- OUTSIDE RECORDS SUMMARY | 2024-09-18 17:23 | XMS_ITS | Encounter Summary ---
Author Organization [employer] Address [address] [facility] 7t [place] [address] Care Team Providers Care Quality Assurance Clerk Name Role Phone Niki Ramos MD Primary Care Provide r Encounter Details Date Type Department Care Team (Late st Contact Info) Description 06/22/2022 Abstract [facility] ADULT D[facility]AL [address] [place] [address] Sachin Chow, DMD [address] [place] [address] Social History Tobacco Use Types Packs/Day Years [...] on filedocumented in this encounter Care Teams Quality Assurance Clerk Relationship Specialty Start Date End Date Niki Ramos MD [address] [place] [address] PCP - General Family Medicine 03/24/18 documented as of this encounter
--- OUTSIDE RECORDS SUMMARY | 2024-09-18 17:23 | XMS_ITS | Encounter Summary ---
Author Organization [employer] Address [address] [facility] [address] [place] [address] Care Team Providers Care Actimize Architect Name Role Phone Niki Ramos MD Primary Care Provide r Reason for Visit * Reason Comments Med Refill Encounter Details Date Type Department Care Team ([facility] st Contact Info) Description 09/16/2024 Refill [facility] MEDICINE [address] [place] [address] Niki Ramos MD [address] [place], [place] [phone] Asthma in adult, mild intermittent, uncomplicated Social History Tobacco Use Types Packs/Day Years [...] as of this encounter Visit Diagnoses Diagnosis Asthma in adult, mild intermittent, uncomplicated documented in this encounter Additional Health Concerns Assessment Noted Time PHQ-9 Depression Total Score: 0 10/04/19 24 9:42 AM EDT documented as of this encounter Care Teams Actimize Architect Relationship Specialty Start Date End Date Niki Ramos MD [address] [place] [phone] PCP - General Family Medicine 03/24/18 documented as of this encounter
--- OUTSIDE RECORDS SUMMARY | 2024-09-18 17:23 | XMS_ITS | Encounter Summary ---
Author Organization [employer] Address [address] [facility] 7t [place] [address] Care Team Providers Care Hardware Designer Name Role Phone Niki Ramos MD Primary Care Provide r Reason for Visit * Reason Onset Date Comments Results 09/04/2024 Encounter Details Date Type Department Care Team ([facility] st Contact Info) Description 09/04/2024 Telephone [facility] MEDICINE [address] [place] [address] Niki Ramos MD [address] [place] [address] Results Social History Tobacco Use Types Packs/Day [...] 4:30 PM EST TC placed to pt [phone] to inform of below message. Pt verbalized [...] documented as of this encounter Care Teams Hardware Designer Relationship Specialty Start Date End Date Niki Ramos MD [address] [place] [address] PCP - General Family Medicine 03/24/18 documented as of this encounter
--- OUTSIDE RECORDS SUMMARY | 2024-09-18 17:23 | XMS_ITS | Encounter Summary ---
Author Organization [employer] Address [address] [facility] 7t [place] [address] Care Team Providers Care Jet Aircraft Servicer Name Role Phone Niki Ramos MD Primary Care Provide r Encounter Details Date Type Department Care Team (Late st Contact Info) Description 07/30/2022 Abstract [facility] ADULT DENTAL [address] [place] [address] Sundeep Felipe, ROBERTO [address] [place] [address] Social History Tobacco Use Types Packs/Day Years [...] on filedocumented in this encounter Care Teams Jet Aircraft Servicer Relationship Specialty Start Date End Date Niki Ramos MD [address] [place] [address] PCP - General Family Medicine 03/24/18 documented as of this encounter
--- OUTSIDE RECORDS SUMMARY | 2024-09-18 17:23 | XMS_ITS | Encounter Summary ---
Author Organization [employer] Address [address] [facility] 7t [place] [address] Care Team Providers Care Heel Coverer Name Role Phone Niki Ramos MD Primary Care Provide r Encounter Details Date Type Department Care Team (Latest Contact Info) Description 11/08/2018 Abstract [facility] CONVERSIONS Dental, Provider, DDS Social History Tobacco [...] on filedocumented in this encounter Care Teams Heel Coverer Relationship Specialty Start Date End Date Niki Ramos MD 230 [place] [address] PCP - General Family Medicine 03/24/18 documented as of this encounter
--- OUTSIDE RECORDS SUMMARY | 2024-09-18 17:57 | XMS_ITS | Encounter Summary ---
Author Organization [employer] Address [address] [facility] 7t [place] [address] Care Team Providers Care Finish Repair Worker Name Role Phone Niki Ramos MD Primary Care Provide r Encounter Details Date Type Department Care Team ([facility] st Contact Info) Description 09/01/2024 10:45 AM EST Office Visit [facility] MEDICINE [address] [place] [address] Niki Ramos MD [address] [place] [address] Pruritus (Primary Dx); Mood disorder (CMS/HCC); Essential [...] Free T4 1.23 0.32 - 4.0 uIU/mL [facility] Blood Venous blood specimen / Unknown 09/04/2024 7:59 AM EST 09/04/2024 11:36 AM EST Niki Simmons MD LAB BLOOD ORDERABLES Final Result Performing Organization Address [facility] Co de Phone Number [facility] [address] [place] [phone] * (ABNORMAL) Vitamin D, 25-Hydroxy, Total, Immunoassay (09/04/2024 7:59 AM EST) Vitamin D 25-OH Total 26.9(L) >30 ng/mL [facility] Comment:Health Based Referen ce Values*< 20 ng/mL Vynfeehhp00-01 ng/mL Insufficient> 30 ng/mL Sufficient*Leora CANDELARIA. N [...] BLOOD ORDERABLES Final Result Performing Organization Address [facility]/ZIP Co de Phone Number [facility] [address] [place] [address] [phone] * Lipid Panel, Standard (09/04/2024 7:59 AM EST) Triglycerides 74 <150 mg/dL [facility] Comment:Desirable Triglyceri de: less than 150 mg/dLBorderline High Triglyceride 150-199 mg/dLHigh Triglyceride: 200-499 mg/dLVery High Triglyceride: greater than or equal to 5OO mg/dL Cholesterol 106 <200 mg/dL [facility] Comment:Desirable Cholestero l: less than 200 mg/dLBorderline High Cholesterol: 200-239 mg/dLHigh Cholesterol: greater than 239 mg/dL LDL Cholesterol Calculated 47 <100 mg/dL [facility] Comment:Desirable LDL: less than 100 mg/dLNear Optimal/Above Optimal LDL: 110- 129 mg/dLBorderline High LDL: 130-159 mg/dLHigh LDL: 160-189 mg/dLVery High LDL: greater than or equal to 190 mg/dL HDL Cholesterol 45 >40 mg/dL [facility] Comment:Desirable HDL: great er than 40 mg/dL Note: This HDL assay may give artificially low results in patients with liver disease. Blood Venous blood specimen / Unknown 09/04/2024 7:59 AM EST 09/04/2024 11:36 AM EST us Niki Simmons MD LAB BLOOD ORDERABLES Final Result Performing Organization Address [facility] Co de Phone Number [facility] [address] [place] [phone] * Hepatitis C Antibody with Reflex to HCV, RNA, Quantitative, Real-Time PCR (09/04/2024 7:59 AM EST) Hepatitis C Antibody Nonreactive Nonreactive [facility] Comment:Antibodies to HCV no t detected; does not exclude early acuteHCV infection. Blood Venous blood specimen / Unknown 09/04/2024 7:59 AM EST 09/04/2024 11:36 AM EST us Niki Simmons MD LAB BLOOD ORDERABLES Final Result Performing Organization Address [facility] Co de Phone Number [facility] [address] [place] [phone] * HIV-1/2 Antigen and Antibodies, Fourth Generation, with Reflexes (09/04/2024 7:59 AM EST) HIV AB/AG Nonreactive Nonreactive [facility] Comment:HIV-1 p24 Ag and/or HIV-1/HIV-2 Ab not detected.A test result that is nonreactive does not exclude thepossibility of exposure to or infection with HIV-1 and/orHIV-2. Nonreactive results in this assay for individualswith prior exposure to HIV-1 and/or HIV-2 may be due toantigen and antibody levels that are below the limit ofdetection of this assay.The [employer] HIV Ag/Ab Combo assay result andsupplemental assay results should be interpreted inconjunction with the patient's clinical presentation,history and other laboratory results. If the results areinconsistent with clinical evidence, additional testing issuggested to confirm the result. Blood Venous blood specimen / Unknown 09/04/2024 7:59 AM EST 09/04/2024 11:36 AM EST us Niki Simmons MD LAB BLOOD ORDERABLES Final Result [facility] [address] [place] [phone] * Hemoglobin A1c (09/04/2024 7:59 AM EST) Hemoglobin A1c 5.7 <6.0 % [facility] Comment:Hemoglobin A1C Refer ence Range Adults: 4.8 - 6.0 % Non diabetic: < 6.0 % Goal: < 7.0 %Additional Action Suggested: > 8.0 %Note: Hemoglobin A1c results are invalid for patients with abnormal amounts of HbF. Blood transfusions may impact the HbA1c concentration in the patient sample. Estimated Average Glucose 117 mg/dL [facility] Comment:eAG = Estimated ave rage glucose which is %A1C expressed asaverage glucose, using the formula of the M3Q-QsxaruuAzuftea Glucose study (ADAG), Diabetes Care, Vol.31,#8,Feb. 2007 Blood Venous blood specimen / Unknown 09/04/2024 7:59 AM EST 09/04/2024 11:36 AM EST us Niki Simmons MD LAB BLOOD ORDERABLES Final Result Performing Organization Address City/[facility]/ZIP Co de Phone Number [facility] [address] [place] [phone] [phone] * (ABNORMAL) Comprehensive Metabolic Panel (09/04/2024 7:59 AM EST) Sodium 143 135 - 145 mmol/L [facility] Potassium 3.8 3.3 - 5.1 mmol/L [facility] Chloride 108 96 - 108 mmol/L [facility] Carbon Dioxide 28 22 - 29 mmol/L [facility] Anion Gap 11(L) 12 - 20 [facility] Urea Nitrogen (BUN) 16 9 - 16 mg/dL [facility] Creatinine, Serum 0.75 0.5 - 1.4 mg/dL [facility] Estimated Glomerular Filt Rate >60 [facility] Comment:Chronic Kidney Disea se: Estimated GFR < 60 mL/min/1.20p2Eqtepf Kidney Disease: Estimated GFR < 15 mL/min/1.73m2 Glucose 104 60 - 115 mg/dL [facility] Calcium 8.8 8.4 - 10.2 mg/dL [facility] Bilirubin, Total 0.6 0.0 - 1.0 mg/dL [facility] Aspartate Amino Transferase 27 5 - 37 U/L [facility] Alanine Aminotransferase 35 0 - 40 U/L [facility] Total Protein 6.8 6.5 - 8.0 g/dL [facility] Albumin Level 4.1 3.5 - 5.0 g/dL [facility] Alkaline Phosphatase 47 39 - 117 U/L [facility] Blood Venous blood specimen / Unknown 09/04/2024 7:59 AM EST 09/04/2024 11:36 AM EST us Niki Simmons MD LAB BLOOD ORDERABLES Final Result Performing Organization Address City/[facility]/ZIP Co de Phone Number [facility] [address] [place] [phone] * (ABNORMAL) CBC auto differential (09/04/2024 7:59 AM EST) White Blood Count 3.7(L) 4.8 - 10.8 X10*3/uL [facility] Red Blood Count 4.93 4.60 - 5.80 X10*6/uL [facility] Hemoglobin 14.1 14.0 - 18.0 g/dl [facility] Hematocrit 43.3 42.0 - 52.0 % [facility] Mean Corpuscular Volume 87.8 80.0 - 98.0 fL [facility] Mean Corpuscular Hemoglobin 28.6 27.0 - 33.0 pg [facility] Mean Corpuscular HGB Conc 32.6 31.0 - 36.0 g/dl [facility] Red Cell Distribution Width 12.6 11.0 - 16.0 % [facility] Platelet Count 180 160 - 400 X10*3/uL [facility] Mean Platelet Volume 10.5 9.4 - 12.4 fL [facility] Neutrophils Percent Auto 64.0 45 - 73 % [facility] Imm Gran Pct Auto 0.3 0.0 - 0.4 % [facility] Lymphocytes Percent Auto 23.6 20 - 40 % [facility] Monocytes Percent Auto 7.0 2 - 11 % [facility] Eosinophils Percent Auto 4.3(H) 0 - 4 % [facility] Basophils Percent Auto 0.8 0 - 2 % [facility] NRBC Pct Auto 0.0 0.0 - 0.2 /100WBC [facility] Neutrophils Absolute Auto 2.4 2.0 - 8.3 x10*3/uL [facility] Imm Gran Abs Auto 0.01 0.00 - 0.03 X10*3/uL [facility] Lymphocytes Absolute Auto 0.9(L) 1.2 - 4.9 X10*3/uL [facility] Monocytes Absolute Auto 0.3 0.1 - 1.2 X10*3/uL [facility] Eosinophils Absolute Auto 0.2 0.0 - 0.4 X10*3/uL [facility] Basophils Absolute Auto 0.0 0.0 - 0.2 X10*3/uL [facility] NRBC Abs Auto 0.000 0.0 - 0.012 X10*3/uL [facility] Blood Venous blood specimen / Unknown 09/04/2024 7:59 AM EST 09/04/2024 11:36 AM EST us Niki Simmons MD LAB BLOOD ORDERABLES Final Result [facility] [address] [place] [phone] [phone] documented in this encounter Visit Diagnoses [...] documented as of this encounter Care Teams Finish Repair Worker Relationship Specialty Start Date End Date Niki Ramos MD [address] [place] [phone] PCP - General Family Medicine 03/24/18 documented as of this encounter
--- OUTSIDE RECORDS SUMMARY | 2024-09-18 17:57 | XMS_ITS | Encounter Summary ---
Author Organization [employer] Address [address] [facility] 7t [place] [address] Care Team Providers Care Building Services Technician Name Role Phone Niki Ramos MD Primary Care Provide r Encounter Details Date Type Department Care Team (Late st Contact Info) Description 09/03/2022 Abstract [facility] ADULT DENTAL [address] [place] [address] Sundeep Felipe, ROBERTO [address] [place] [address] Social History Tobacco Use Types Packs/Day Years [...] on filedocumented in this encounter Care Teams Building Services Technician Relationship Specialty Start Date End Date Niik Ramos MD [address] [place] [address] PCP - General Family Medicine 03/24/18 documented as of this encounter
--- OUTSIDE RECORDS SUMMARY | 2024-09-18 17:57 | XMS_ITS | Encounter Summary ---
Author Organization [employer] Address [address] [facility] [address]t [place] [address] Care Team Providers Care Information Systems Security Officer Name Role Phone Niki Ramos MD Primary Care Provide r Encounter Details Date Type Department Care Team (Latest Contact Info) Description 11/08/2018 Abstract [facility] CONVERSIONS Dental, Provider, DDS Social History Tobacco [...] on filedocumented in this encounter Care Teams Information Systems Security Officer Relationship Specialty Start Date End Date Niki Ramos MD [address] [place] [address] PCP - General Family Medicine 03/24/18 documented as of this encounter
--- OUTSIDE RECORDS SUMMARY | 2024-09-18 17:57 | XMS_ITS | Encounter Summary ---
Author Organization [employer] Address [address] [facility] [address]t [place] [address] Care Team Providers Care Firearms Instructor Name Role Phone Niki Ramos MD Primary Care Provide r Encounter Details Date Type Department Care Team (Late st Contact Info) Description 02/19/2023 Orders Only [facility]S [address] [place] [address] Janelle Jones LPN Social History Tobacco Use [...] documented as of this encounter Care Teams Firearms Instructor Relationship Specialty Start Date End Date Niki Ramos MD [address] [place] [address] PCP - General Family Medicine 03/24/18 documented as of this encounter
--- OUTSIDE RECORDS SUMMARY | 2024-09-18 17:57 | XMS_ITS | Encounter Summary ---
Author Organization [employer] Address [address] [facility] [address] [place] [address] Care Team Providers Care Wedding Decorator Name Role Phone Niki Ramos MD Primary Care Provide r Encounter Details Date Type Department Care Team ([facility] st Contact Info) Description 09/04/2024 Orders [...] (Free>4and<10) 10.94(H ) 0.00 - 4.00 ng/mL [facility] Comment:A Free PSA was not [...] Provider LAB BLOOD ORDERAB LES Final Result [facility] [address] [place] [address] [phone] documented in this encounter Visit Diagnoses Not on filedocumented in this encounter Additional Health Concerns Assessment Noted Time PHQ-9 Depression Total Score: 0 10/04/19 24 9:42 AM EDT documented as of this encounter Care Teams Wedding Decorator Relationship Specialty Start Date End Date Niki Ramos MD [address] [place] [address] PCP - General Family Medicine 03/24/18 documented as of this encounter
--- OUTSIDE RECORDS SUMMARY | 2024-09-18 17:57 | XMS_ITS | Encounter Summary ---
Author Organization [employer] Address [address] [facility] 7t [place] [address] Care Team Providers Care Bearing Maker Name Role Phone Niki Ramos MD Primary Care Provide r Encounter Details Date Type Department Care Team (Latest Contact Info) Description 04/09/2022 Abstract [facility] CONVERSIONS Dental, Provider, DDS Social History Tobacco [...] on filedocumented in this encounter Care Teams Bearing Maker Relationship Specialty Start Date End Date Niki Ramos MD [address] [place] [address] PCP - General Family Medicine 03/24/18 documented as of this encounter
--- OUTSIDE RECORDS SUMMARY | 2024-09-18 17:57 | XMS_ITS | Encounter Summary ---
Author Organization [employer] Address [address] [facility] [address]t [place] [address] Care Team Providers Care Pickle Maker Name Role Phone Niki Ramos MD [...] documented as of this encounter Care Teams Pickle Maker Relationship Specialty Start Date End Date Niki Ramos MD [address] [place] [address] PCP - General Family Medicine 03/24/18 documented as of this encounter
--- OUTSIDE RECORDS SUMMARY | 2024-09-18 17:57 | XMS_ITS | Encounter Summary ---
Author Organization [employer] Address [address] [facility] 7t [place] [address] Care Team Providers Care Leisure Travel Agent Name Role Phone Niki Ramos MD Primary Care Provide r Reason for Visit * Reason Onset Date Comments Medication Question 08/31/2024 Encounter Details Date Type Department Care Team ([facility] st Contact Info) Description 08/31/2024 Telephone [facility] MEDICINE [address] [place] [address] Niki Ramos MD [address] [place] [address] Medication Question Social History Tobacco Use Types [...] 3:47 PM EST TC returned to [facility] [phone] to inform the zolpidem medication is NOT rx'd by PCP. Magali advised to contact psychiatry office (Aarti Wynn) to further discuss. Magali verbalized understanding. Magali to f/u PRN. 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 Pt reports although takes as prescribedmedication doesn't really due much for him . Magali states given patients age and risk factor , script should be canceled and patient should be prescribed melatonin if he has not already tried it . Magali would like an update so she may update patients chart aswell. Magali [phone] documented in this encounter Plan of Treatment Not on file documented as of this encounter Visit Diagnoses Not on filedocumented in this encounter Additional Health Concerns Assessment Noted Time PHQ-9 Depression Total Score: 0 10/04/19 24 9:42 AM EDT documented as of this encounter Care Teams Leisure Travel Agent Relationship Specialty Start Date End Date Niki Ramos MD [facility] [place] [address] PCP - General Family Medicine 03/24/18 documented as of this encounter
--- OUTSIDE RECORDS SUMMARY | 2024-09-18 17:57 | XMS_ITS | Encounter Summary ---
Author Organization [employer] Address [address] [facility] 7t [place] [address] Care Team Providers Care Bundle Collector Name Role Phone Niki Ramos MD Primary Care Provide r Reason for Visit * Reason Comments Med Refill Encounter Details Date Type Department Care Team ([facility] st Contact Info) Description 09/12/2024 Refill [facility] MEDICINE [address] [place] [address] Niki Ramos MD [address] [place] [address] Social History Tobacco Use Types Packs/Day Years [...] documented as of this encounter Care Teams Bundle Collector Relationship Specialty Start Date End Date Niki Ramos MD [address] [place] [address] PCP - General Family Medicine 03/24/18 documented as of this encounter
--- OUTSIDE RECORDS SUMMARY | 2024-09-18 17:57 | XMS_ITS | Encounter Summary ---
Author Organization [employer] Address 75 [facility] 7t [place] [address] Care Team Providers Care Adjunct Writing Instructor Name Role Phone Niki Ramos MD Primary Care Provide r Encounter Details Date Type Department Care Team (Late st Contact Info) Description 06/05/2022 Abstract [facility] ADULT DENTAL [address] [place] [address] Sundeep Felipe DMD [address] [place] [address] Social History Tobacco Use Types Packs/Day Years [...] on filedocumented in this encounter Care Teams Adjunct Writing Instructor Relationship Specialty Start Date End Date Niki Ramos MD [address] [place] [address] PCP - General Family Medicine 03/24/18 documented as of this encounter
--- OUTSIDE RECORDS SUMMARY | 2024-09-18 17:57 | XMS_ITS | Encounter Summary ---
Author Organization [employer] Address 75 [facility] 7t [place] [address] Care Team Providers Care Currency Examiner Name Role Phone Niki Raoms MD Primary Care Provide r Encounter Details Date Type Department Care Team ([facility] st Contact Info) Description 05/27/2022 Abstract [facility] ADULT DENTAL [address] [place] [address] Dental, Provider, DDS Social History Tobacco Use [...] on filedocumented in this encounter Care Teams Currency Examiner Relationship Specialty Start Date End Date Niki Ramos MD [address] [place] [address] PCP - General Family Medicine 03/24/18 documented as of this encounter
--- OUTSIDE RECORDS SUMMARY | 2024-09-18 17:57 | XMS_ITS | Encounter Summary ---
Author Organization [employer] Address 75 [facility] 7t [place] [address] Care Team Providers Care Manager Group Name Role Phone Niki Ramos MD Primary Care Provide r Encounter Details Date Type Department Care Team (Late st Contact Info) Description 07/30/2022 Abstract [facility] ADULT DENTAL [address] [place] [address] Sundeep Felipe, ROBERTO [address] [place] [address] Social History Tobacco Use Types Packs/Day Years [...] filedocumented in this encounter Care Teams Manager Group Relationship Specialty Start Date End Date Niki Ramos MD [address] [place] [address] PCP - General Family Medicine 03/24/18 documented as of this encounter
--- OUTSIDE RECORDS SUMMARY | 2024-09-18 17:57 | XMS_ITS | Encounter Summary ---
Author Organization [employer] Address 75 [facility] [address] 7t [place] [address] Care Team Providers Care Ragman Name Role Phone Niki Ramos MD Primary Care Provide r Encounter Details Date Type Department Care Team (Late st Contact Info) Description 08/31/2024 Orders Only [facility] MEDICINE [address] [place] [address] Niki Ramos MD [address] [place] [address] Vitamin D deficiency (Primary Dx) Social History [...] documented as of this encounter Care Teams Ragman Relationship Specialty Start Date End Date Niki Ramos MD [address] [place] [phone] PCP - General Family Medicine 03/24/18 documented as of this encounter
--- OUTSIDE RECORDS SUMMARY | 2024-09-18 17:57 | XMS_ITS | Encounter Summary ---
Author Organization [employer] Address 75 [facility] 7t [place] [address] Care Team Providers Care Locksmith Helper Name Role Phone Niki Ramos MD Primary Care Provide r Reason for Visit * Reason Comments Dentures Encounter Details Date Type Department Care Team ([facility] st Contact Info) Description 08/24/2024 10:00 AM EST Office Visit [facility] ADULT DENTAL [address] [place] [address] Sundeep Felipe, DMD [address] [place] [address] Social History Tobacco Use Types Packs/Day Years [...] documented as of this encounter Care Teams Locksmith Helper Relationship Specialty Start Date End Date Niki Ramos MD [address] [place] [address] PCP - General Family Medicine 03/24/18 documented as of this encounter
--- OUTSIDE RECORDS SUMMARY | 2024-09-18 17:57 | XMS_ITS | Clinical Summary ---
Author Organization [employer] Address 75 [facility] 7t [place] [address] Care Team Providers Care Provider Engagement Executive Name Role Phone Niki Ramos MD Primary [...] PM EST): I will refer him to family engagement specialist Allergy 07/12/2023 Dyspnea on exertion 01/12/2023 [...] change. PLAN: 1. Follow up with [facility]: Not recommended for follow-up 2. Patient goal is to continue OP therapy and explore additional coping mechanisms. 3. Behavioral Recommendations a. OP therapy b. Coping mechanisms- deep breathing C. [facility] respite program Resolved Problems Problem Noted Date Diagnosed Date Resolved Date Aneurysm of right iliac artery 01/19/2020 09/01/2024 Dilatation of aorta 09/17/2017 09/01/19 25 Encounters Date Type Department Care Team Description 09/16/2024 Refill [facility] [address] [place] [address] Niki Ramos MD Asthma in adult, mild intermittent, uncomplicated 09/13/2024 Orders Only [facility] External Provider, [facility] 09/12/2024 Refill [facility] [address] [place] [address] Niki Ramos MD 09/04/2024 Telephone [facility] [address] [place] [address] Niki Ramos MD Results 09/04/2024 Orders Only GENERIC EXTERNAL DATA DEPARTMENT Provider, Generic External Data 09/01/2024 10:45 AM EST Office Visit [facility] [address] [place] [address] Niki Ramos MD Pruritus (Primary Dx); Mood disorder ([facility]/HCC); Essential hypertension; Colon cancer screening; Benign prostatic hyperplasia with lower urinary tract symptoms, symptom details unspecified 09/01/2024 Travel 08/31/2024 Orders Only [facility] [address] [place] [address] Niki Ramos MD Vitamin D deficiency (Primary Dx) 08/31/2024 Telephone [facility] [address] [place] [address] Niki Ramos MD Medication Question 08/24/2024 10:00 AM EST Office Visit [facility] ADULT DENTAL [address] [place] [address] Sundeep Felipe DMD 07/10/2024 10:00 AM EST Office Visit [facility] ADULT DENTAL [address] [place] [address] Sundeep Felipe DMD 06/26/2024 Orders Only [facility] External Provider, [facility] 06/22/2024 Orders Only GENERIC EXTERNAL DATA DEPARTMENT [...] AM EDT) 09/13/2024 9:40 AM EDT Narrative [facility] IMAGING - 09/17/2024 11:42 AM EDT ? [facility] ?[address] ?[place] [address] ?Nuclear Medicine Report ? Signed ? Patient: Che,Jayesh ?MR#: [id number] ?? 6 ? : 1950 ?Acct:[id number] ? Age/Sex: 74 / M ?ADM Date: 03/12/25 ? Loc: HO.CARD ? Attending Dr: Ralph Lyman MD ? Ordering Physician: Ralph Lyman MD ?? Date of Service: 09/13/24 ?? Procedure(s): NM cardiolite stress test ?? Accession Number(s): [id number] ? cc: Niki Ramos MD; Ralph Lyman [...] DD/ 0940 ? TD/TT: 09/15/24 1210 ? Maintenance Painter Apprentice: ? Procedure Note Donotuseinterpreter, Image - 09/17/[address] [address] Nuclear Medicine Report Signed Patient: Luis Che#: [id number] 6 : 1950Acct:[id number] Age/Sex: 74 / MADM Date: 09/13/24 Loc: [facility] Attending Dr: Ralph Lyman MD Ordering Physician: Ralph Lyman MD Date of Service: 09/13/24 Procedure(s): NM cardiolite stress test Accession Number(s): [id number] cc: Niki Ramos MD; Ralph Lyman MD [...] 09/17/24 1139 DD/ 0940 TD/TT: 09/15/24 1210 Maintenance Painter Apprentice: us [facility] External Provider CV STRE SS PROCEDURES Final Result [facility] [address] [place] [phone] * (ABNORMAL) Vitamin D, 25-Hydroxy, Total, Immunoassay (09/04/2024 7:59 AM EST) Vitamin D 25-OH Total 26.9(L) >30 ng/mL [facility] Comment:Health Based Referen ce Values*< 20 ng/mL Optpsqczc12-92 ng/mL Insufficient> 30 ng/mL Sufficient*Leora CANDELARIA. N [...] Simmons MD LAB BLOOD ORDERABLES Final Result [facility] [address] [place] [phone] * TSH with Reflex to Free T4 (09/04/2024 7:59 AM EST) TSH reflex Free T4 1.23 0.32 - 4.0 uIU/mL [facility] Blood Venous blood specimen / Unknown 09/04/2024 7:59 AM EST 09/04/2024 11:36 AM EST us Niki Simmons MD LAB BLOOD ORDERABLES Final Result Performing Organization Address [facility] Co de Phone Number [facility] [address] [place] [phone] * (ABNORMAL) PSA, Total With Reflex to PSA, Free (09/04/2024 7:59 AM EST) Only the most recent of2 resultswithin the time period is included. PSA,Total (Free>4and<10) 10.94(H ) 0.00 - 4.00 ng/mL [facility] Comment:A Free PSA was not p [...] Provider LAB BLOOD ORDERAB LES Final Result [facility] [address] [place], [place] [phone] * (ABNORMAL) CBC auto differential (09/04/2024 7:59 AM EST) White Blood Count 3.7(L) 4.8 - 10.8 X10*3/uL [facility] Red Blood Count 4.93 4.60 - 5.80 X10*6/uL [facility] Hemoglobin 14.1 14.0 - 18.0 g/dl [facility] Hematocrit 43.3 42.0 - 52.0 % [facility] Mean Corpuscular Volume 87.8 80.0 - 98.0 fL [facility] Mean Corpuscular Hemoglobin 28.6 27.0 - 33.0 pg [facility] Mean Corpuscular HGB Conc 32.6 31.0 - 36.0 g/dl [facility] Red Cell Distribution Width 12.6 11.0 - 16.0 % [facility] Platelet Count 180 160 - 400 X10*3/uL [facility] Mean Platelet Volume 10.5 9.4 - 12.4 fL [facility] Neutrophils Percent Auto 64.0 45 - 73 % [facility] Imm Gran Pct Auto 0.3 0.0 - 0.4 % [facility] Lymphocytes Percent Auto 23.6 20 - 40 % [facility] Monocytes Percent Auto 7.0 2 - 11 % [facility] Eosinophils Percent Auto 4.3(H) 0 - 4 % [facility] Basophils Percent Auto 0.8 0 - 2 % [facility] NRBC Pct Auto 0.0 0.0 - 0.2 /100WBC [facility] Neutrophils Absolute Auto 2.4 2.0 - 8.3 x10*3/uL [facility] Imm Gran Abs Auto 0.01 0.00 - 0.03 X10*3/uL [facility] Lymphocytes Absolute Auto 0.9(L) 1.2 - 4.9 X10*3/uL [facility] Monocytes Absolute Auto 0.3 0.1 - 1.2 X10*3/uL [facility] Eosinophils Absolute Auto 0.2 0.0 - 0.4 X10*3/uL [facility] Basophils Absolute Auto 0.0 0.0 - 0.2 X10*3/uL [facility] NRBC Abs Auto 0.000 0.0 - 0.012 X10*3/uL [facility] Blood Venous blood specimen / Unknown 09/04/2024 7:59 AM EST 09/04/2024 11:36 AM EST Niki Simmons MD LAB BLOOD ORDERABLES Final Result Performing Organization Address [facility] Co de Phone Number [facility] [address] [place] [phone] * Hepatitis C Antibody with Reflex to HCV, RNA, Quantitative, Real-Time PCR (09/04/2024 7:59 AM EST) Hepatitis C Antibody Nonreactive Nonreactive [facility] Comment:Antibodies to HCV no t detected; does not exclude early acuteHCV infection. Blood Venous blood specimen / Unknown 09/04/2024 7:59 AM EST 09/04/2024 11:36 AM EST Niki Simmons MD LAB BLOOD ORDERABLES Final Result Performing Organization Address City/[facility]/ZIP Co de Phone Number [facility] [address] [place] [phone] * HIV-1/2 Antigen and Antibodies, Fourth Generation, with Reflexes (09/04/2024 7:59 AM EST) HIV AB/AG Nonreactive Nonreactive [facility] Comment:HIV-1 p24 Ag and/or HIV-1/HIV-2 Ab not detected.A test result that is nonreactive does not exclude thepossibility of exposure to or infection with HIV-1 and/orHIV-2. Nonreactive results in this assay for individualswith prior exposure to HIV-1 and/or HIV-2 may be due toantigen and antibody levels that are below the limit ofdetection of this assay.The [employer] HIV Ag/Ab Combo assay result andsupplemental assay results should be interpreted inconjunction with the patient's clinical presentation,history and other laboratory results. If the results areinconsistent with clinical evidence, additional testing issuggested to confirm the result. Blood Venous blood specimen / Unknown 09/04/2024 7:59 AM EST 09/04/2024 11:36 AM EST us Niki Simmons MD LAB BLOOD ORDERABLES Final Result Performing Organization Address [facility]/ZIP Co de Phone Number [facility] [address] [place] [phone] * Hemoglobin A1c (09/04/2024 7:59 AM EST) Hemoglobin A1c 5.7 <6.0 % [facility] Comment:Hemoglobin A1C Refer ence Range Adults: 4.8 - 6.0 % Non diabetic: < 6.0 % Goal: < 7.0 %Additional Action Suggested: > 8.0 %Note: Hemoglobin A1c results are invalid for patients with abnormal amounts of HbF. Blood transfusions may impact the HbA1c concentration in the patient sample. Estimated Average Glucose 117 mg/dL [facility] Comment:eAG = Estimated ave rage glucose which is %A1C expressed asaverage glucose, using the formula of the [id number] Glucose study (ADAG), Diabetes Care, Vol.31,#8,Feb. 2007 Blood Venous blood specimen / Unknown 09/04/2024 7:59 AM EST 09/04/2024 11:36 AM EST us Niki Simmons MD LAB BLOOD ORDERABLES Final Result Performing Organization Address [facility]/ZIP Co de Phone Number [facility] [address] [place] [phone] * Lipid Panel, Standard (09/04/2024 7:59 AM EST) Triglycerides 74 <150 mg/dL [facility] Comment:Desirable Triglyceri de: less than 150 mg/dLBorderline High Triglyceride 150-199 mg/dLHigh Triglyceride: 200-499 mg/dLVery High Triglyceride: greater than or equal to 5OO mg/dL Cholesterol 106 <200 mg/dL [facility] Comment:Desirable Cholestero l: less than 200 mg/dLBorderline High Cholesterol: 200-239 mg/dLHigh Cholesterol: greater than 239 mg/dL LDL Cholesterol Calculated 47 <100 mg/dL [facility] Comment:Desirable LDL: less than 100 mg/dLNear Optimal/Above Optimal LDL: 110- 129 mg/dLBorderline High LDL: 130-159 mg/dLHigh LDL: 160-189 mg/dLVery High LDL: greater than or equal to 190 mg/dL HDL Cholesterol 45 >40 mg/dL [facility] Comment:Desirable HDL: great er than 40 mg/dL Note: This HDL assay may give artificially low results in patients with liver disease. Blood Venous blood specimen / Unknown 09/04/2024 7:59 AM EST 09/04/2024 11:36 AM EST us Niki Simmons MD LAB BLOOD ORDERABLES Final Result [facility] [address] [place] [phone] * (ABNORMAL) Comprehensive Metabolic Panel (09/04/2024 7:59 AM EST) Sodium 143 135 - 145 mmol/L [facility] Potassium 3.8 3.3 - 5.1 mmol/L [facility] Chloride 108 96 - 108 mmol/L [facility] Carbon Dioxide 28 22 - 29 mmol/L [facility] Anion Gap 11(L) 12 - 20 [facility] Urea Nitrogen (BUN) 16 9 - 16 mg/dL [facility] Creatinine, Serum 0.75 0.5 - 1.4 mg/dL [facility] Estimated Glomerular Filt Rate >60 [facility] Comment:Chronic Kidney Disea se: Estimated GFR < 60 mL/min/1.69e0Meqxzl Kidney Disease: Estimated GFR < 15 mL/min/1.73m2 Glucose 104 60 - 115 mg/dL [facility] Calcium 8.8 8.4 - 10.2 mg/dL [facility] Bilirubin, Total 0.6 0.0 - 1.0 mg/dL [facility] Aspartate Amino Transferase 27 5 - 37 U/L [facility] Alanine Aminotransferase 35 0 - 40 U/L [facility] Total Protein 6.8 6.5 - 8.0 g/dL [facility] Albumin Level 4.1 3.5 - 5.0 g/dL [facility] Alkaline Phosphatase 47 39 - 117 U/L [facility] Blood Venous blood specimen / Unknown 09/04/2024 7:59 AM EST 09/04/2024 11:36 AM EST us Niki Simmons MD LAB BLOOD ORDERABLES Final Result [facility] [address] [place] [phone] * CT Lung Screening Low dose (06/26/2024 8:49 AM EST) Anatomical Region Laterality Modality Lung Computed Tomogra phy 06/26/2024 8:49 AM EST Narrative 07/19/2024 10:37 AM EST ? [facility] ?[address] ?[place] [address] ? CT Scan Report ? Signed ? Patient: Che,Jayesh ?MR#: [id number] ?? 6 ? : 1950 ?Acct:[id number] ? Age/Sex: 74 / M ?ADM Date: 12/23/24 ? Loc: HO.CT ? Attending Dr: Dm Moraes MD ? Ordering Physician: Dm Moraes MD ?? Date of Service: 06/26/24 ?? Procedure(s): CT lung screening ?? Accession Number(s): [id number] ? cc: Niki Ramos MD; Dm Moraes MD ? Report Number: ?? [id number]: Total DLP = ?? 52.00 mGy-cm ?? [...] DD/ 0849 ? TD/TT: 06/26/24 0855 ? Maintenance Painter Apprentice: MSM ? Procedure Note Emely, Image - 07/19/[address] [place] [address] [address] Scan Report Signed Patient: Jayesh CheMR#: [id number] 6 : 1950Acct:[id number] Age/Sex: 74 / MADM Date: 06/26/24 Loc: HO.CT Attending Dr: Dm Moraes MD Ordering Physician: Dm Moraes MD Date of Service: 06/26/24 Procedure(s): CT lung screening Accession Number(s): [id number] cc: Niki Ramos MD; Dm Moraes MD Report Number: [id number]: Total DLP = 52.00 mGy-cm EXAMINATION: CT [...] 07/19/24 1034 DD/ 0849 TD/TT: 06/26/24 0855 Maintenance Painter Apprentice: SHELLEY [facility] External Provider IMG CT PROCEDURES Final Result * (ABNORMAL) PSA, Free and Total (06/22/2024 8:58 AM EST) PSA, Total 10.7(A) < OR = 4.0 ng/mL [facility] PSA % Free NOT CALCULATED >25 % (calc) [facility] Comment: PSA(ng/mL) ?Free PSA(%) ? Estimated(x) [...] ? 9 ? (3)Sangita et al.:TRICE 277: 4075-3151 (1996) ? (4)Catalona et al.:TRICE 279: 1381-5142 (1997)(x)These estimates vary with age, ethnicity, family [...] presence or absence ofdisease.THIS TEST WAS PERFORMED AT:[facility] [place] [address] ??[phone] LORENZANA MD PSA, Free 1.4 ng/mL [facility] 06/22/2024 8:58 AM EST 06/22/2024 8:58 AM EST us Generic External Data Provider LAB BLOOD ORDERAB LES Final Result [facility] [address] [place] [phone] * Hm Colonoscopy (03/07/2020) us Historical Provider HEALTH MAINTENANCE Final Result from Last 3 Months or Most Recently Relevant to Health Maintenance Insurance DENTAL - [facility] DENTAL - [facility] Care Teams Provider Engagement Executive Relationship Specialty Start Date End Date Niki Ramos MD [address] [place] [phone] PCP - General Family Medicine 03/24/18
--- OUTSIDE RECORDS SUMMARY | 2024-09-18 17:57 | XMS_ITS | Encounter Summary ---
Author Organization [employer] Address [address] [facility] 7t [place] [address] Care Team Providers Care Lawn Technician Name Role Phone Niki Ramos MD Primary Care Provide r Encounter Details Date Type Department Care Team (Late st Contact Info) Description 03/12/2023 Orders Only [facility] MED[facility]INE [address] [place] [address] Provider, Yao, Social History Tobacco Use Types [...] documented as of this encounter Care Teams Lawn Technician Relationship Specialty Start Date End Date Niki Ramos MD [address] [place] [address] PCP - General Family Medicine 03/24/18 documented as of this encounter
--- OUTSIDE RECORDS SUMMARY | 2024-09-18 17:57 | XMS_ITS | Encounter Summary ---
Author Organization [employer] Address [address] [facility] [address]t [place] [address] Care Team Providers Care Textile Engraver Name Role Phone Niki Ramos MD Primary Care Provide r Reason for Visit * Reason Onset Date Comments Results 09/04/2024 Encounter Details Date Type Department Care Team ([facility] st Contact Info) Description 09/04/2024 Telephone [facility] MEDICINE [address] [place] [address] Niki Ramos MD [address] [place] [address] Results Social History Tobacco Use Types Packs/Day [...] 4:30 PM EST TC placed to pt [phone] to inform of below message. Pt verbalized [...] documented as of this encounter Care Teams Textile Engraver Relationship Specialty Start Date End Date Niki Ramos MD [address] [place] [address] PCP - General Family Medicine 03/24/18 documented as of this encounter
--- OUTSIDE RECORDS SUMMARY | 2024-09-18 17:58 | XMS_ITS | Encounter Summary ---
Author Organization [employer] Address [address] [facility] [address] 7[address] [place] [address] Care Team Providers Care Rn Family Practice Name Role Phone Niki Ramos MD Primary Care Provide r Encounter Details Date Type Department Care Team (Late st Contact Info) Description 09/13/[address] [facility] External Provider, [facility] Social History Tobacco Use Types [...] AM EDT) 09/13/2024 9:40 AM EDT Narrative [facility] IMAGING - 09/17/2024 11:42 AM EDT ? [facility] ?[address] ?[place] [address] ?Nuclear Medicine Report ? Signed ? Patient: Jayesh Che ?MR#: [id number] ?? 6 ? : 1950 ?Acct:[id number] ? Age/Sex: 74 / M ?ADM Date: 09/13/24 ? Loc: HO.CARD ? Attending Dr: Ralph Lyman MD ? Ordering Physician: Ralph Lyman MD ?? Date of Service: 09/13/24 ?? Procedure(s): NM cardiolite stress test ?? Accession Number(s): [id number] ? cc: Niki Ramos MD; Ralph Lyman [...] DD/ 0940 ? TD/TT: 09/15/24 1210 ? Senior Security Architect: ? Procedure Note Emely, Vik - 09/17/[address] [address] Nuclear Medicine Report Signed Patient: Luis Che#: [id number] 6 : 1950Acct:[id number] Age/Sex: 74 / MADM Date: 09/13/24 Loc: SELAM Attending Dr: Ralph Lyman MD Ordering Physician: Ralph Lyman MD Date of Service: 09/13/24 Procedure(s): PA cardiolite stress test Accession Number(s): [id number] cc: Niki Ramos MD; Ralph Lyman MD [...] inferior perfusion defect. No clear reversible defects. NM/PA cardiolite stress test IMPRESSION: 1. Myocardial perfusion [...] 09/17/24 1139 DD/ 0940 TD/TT: 09/15/24 1210 Senior Security Architect: us [facility] External Provider CV STRE SS PROCEDURES Final Result [facility] IMAG[facility] [address] [place] [address] documented in this encounter Visit Diagnoses Not on filedocumented in this encounter Additional Health Concerns Assessment Noted Time PHQ-9 Depression Total Score: 0 10/04/19 24 9:42 AM EDT documented as of this encounter Care Teams Rn Family Practice Relationship Specialty Start Date End Date Niki Ramos MD [address] [place] [address] PCP - General Family Medicine 03/24/18 documented as of this encounter
--- OUTSIDE RECORDS SUMMARY | 2024-09-18 17:58 | XMS_ITS | Encounter Summary ---
Author Organization [employer] Address [address] [facility] [address] [place] [address] Care Team Providers Care Family Resource Management Professor Name Role Phone Niki Ramos MD Primary Care Provide r Reason for Visit * Reason Comments Med Refill Encounter Details Date Type Department Care Team ([facility] st Contact Info) Description 09/16/2024 Refill [facility] MEDICINE [address] [place] [address] Niki Ramos MD [address] [place], [place] [phone] Asthma in adult, mild intermittent, uncomplicated Social [...] documented as of this encounter Care Teams Family Resource Management Professor Relationship Specialty Start Date End Date Niki Ramos MD [address] [place] [address] PCP - General Family Medicine 03/24/18 documented as of this encounter
--- OUTSIDE RECORDS SUMMARY | 2024-09-18 17:58 | XMS_ITS | Encounter Summary ---
Author Organization [employer] Address 75 [facility] 7t [place] [address] Care Team Providers Care Mine Technician Name Role Phone Niki Ramos MD Primary Care Provide r Encounter Details Date Type Department Care Team (Late st Contact Info) Description 06/22/2022 Abstract [facility] ADULT DENTAL [address] [place] [address] Sachin Chow, DMD [address] [place] [address] Social History Tobacco Use Types Packs/Day Years [...] on filedocumented in this encounter Care Teams Mine Technician Relationship Specialty Start Date End Date Niki Ramos MD [address] [place] [address] PCP - General Family Medicine 03/24/18 documented as of this encounter
== END 2024-09-18 15:58 | disposition home or self-care (01) ==
PROVIDERS: PCP Internal Medicine; Visit Provider Nurse Practitioner Family
DX: R07.2 Precordial pain (principal); R00.2 Palpitations; I10 Essential (primary) hypertension; J45.909 Unspecified asthma, uncomplicated
CPT/HCPCS: 99214; G2211

== ENCOUNTER → 2024-10-04 09:05 | Outpatient (REF) | payer OTHER, SELFPAY ==
--- NOTE | 2024-10-04 09:09 | CA_ITS ---
Transthoracic Echocardiogram Patient (Last, First, Middle): Jayesh Che, Gender: Male Date of : 1950 Age: 74 Procedure Date: 10/04/2024 Procedure Type: Transthoracic Echocardiogram Location: OP Height: 167.64 cm Weight: 69.85 kg BSA: 1.79 m2 Heart Rate: bpm BP: 104 / 62 mmHg Corporate Legal Assistant: KAI Referring MD: Mary Solis COMMERCIAL LEASING MANAGER-C Symptoms: R07.2 - Precordial pain Study Quality: Adequate ECG Rhythm: Sinus Conclusions: - The left ventricular systolic function is normal. The calculated ejection fraction is 65% by biplane method. - No obvious valvular pathology seen on this study. - There is mild dilatation of the ascending aorta measuring 4.00 cm. Findings Left Ventricle Normal left ventricular cavity size. There is normal left ventricular wall thickness. The left ventricular systolic function is normal. The calculated ejection fraction is 65% by biplane method. There is no evidence of regional wall motion abnormalities. Diastolic function is normal for age. Right Ventricle Normal right ventricular cavity size and systolic function. Atria Both atria are normal in size. Aortic Valve There is a normal trileaflet aortic valve. There is no aortic valve stenosis. There is no aortic valve regurgitation. Mitral Valve The mitral valve appears normal. There is no mitral valve regurgitation. There is no mitral valve stenosis. Pulmonic Valve The pulmonic valve is likely normal. Tricuspid Valve There is trace tricuspid valve regurgitation. There is no evidence of pulmonary hypertension. Great Vessels There is mild dilatation of the ascending aorta measuring 4.00 cm. Venous The inferior vena cava is normal in size and collapses less than 50% with inspiration. Pericardium/Pleural There is no evidence of pericardial effusion. Prior Study Comparison Changes noted compared to prior study dated: 01/08/2023. Slight increase in ascending aortic size, could also be technical. Recommendations, Care & Conclusions No obvious valvular pathology seen on this study. Measurements 2D Linear Measurements IVSd: 1.01 0.6-0.9/0.6-1.0 cm LVIDd: 4.91 3.9-5.3/4.2-5.9 cm LVIDd Index: 2.74 2.4-3.2/2.2-3.1 cm/m2 LVIDs: 3.21 2.0-3.6 cm LVPWd: 0.79 0.7-1.1 cm LA Diam: 3.80 2.7-3.8/3.0-4.0 cm LAIDs Index: 2.12 1.5-2.3 cm/m2 LV Mass: 190.67 67-162/88-224 g LV Mass Index: 106.52 43-95/49-115 g/m2 LVOT Diam: 2.00 3.0+(-)1.3 cm 2D Systolic Function EF 4C: 62.70 >55% EF 2C: 65.10 >55% EF BiP: 65.30 >55% Mitral Valve MV Pk E: 0.62 MV PK A: 0.84 MV Decel Time: 271.00 E/A: 0.70 E'Lateral: 7.83 E'Medial: 6.31 E/E' Med: 9.80 E/E' Lat: 7.90 PHT: 79.00 MVA PHT: 2.78 Decel [place]: 2.28 Aortic Valve AoV Pk Jaren: 1.21 AoV Mn Jaren: 0.78 AoV VTI: 0.28 AoV Pk Grad: 6.00 Aov Mn Grad: 3.00 SENA Cont.VTI: 1.98 LVOT LVOT Pk Jaren: 0.91 LVOT Mn Jaren: 0.62 LVOT VTI: 0.18 LVOT Pk Grad: 3.00 LVOT Mn Grad: 2.00 LVOT Diam: 2.00 LVOT Area: 3.14 Diastolic Function MV Pk E: 0.62 MV Pk A: 0.84 E/A: 0.70 E'Medial: 6.31 E/E' Med: 9.80 E' Laterial: 7.83 E/E' Lat: 7.90 Right Ventricle TAPSE (mm): 28.20 TVS' Jaren: 11.30 Tricuspid Valve RA Press: 8.00 Great Vessels Aorta Sinus of Valsalva: 3.96 2.0-3.[address] Ridge: 3.00 1.7-3.4 cm Ao Asc: 4.00 2.1-3.4 cm Ao Arch: 1.60 Updated in Other Vendor System with Status of Final Ralph Lyman MD electronically signed on 10/06/2024 11:21:03 AM with status of Final
--- OUTSIDE RECORDS SUMMARY | 2024-10-04 09:57 | XMS_ITS | Encounter Summary ---
Author Organization [employer] Address 75 [facility] 7t [place] [address] Care Team Providers Care Molder Operator Name Role Phone Niki Ramos MD [...] on filedocumented in this encounter Care Teams Molder Operator Relationship Specialty Start Date End Date Niki Ramos MD [address] [place] [address] PCP - General Family Medicine 03/24/18 documented as of this encounter
--- OUTSIDE RECORDS SUMMARY | 2024-10-04 09:57 | XMS_ITS | Encounter Summary ---
Author Organization [employer] Address 75 [facility] 7t [place] [address] Care Team Providers Care Solid Waste Truck Driver Name Role Phone Niki Ramos MD Primary Care Provide r Encounter Details Date Type Department Care Team (Late st Contact Info) Description 07/30/2022 Abstract [facility] ADULT DENTAL [address] [place] [address] Sundeep Felipe, ROBERTO [address] [place] [address] Social History Tobacco Use Types Packs/Day Years [...] on filedocumented in this encounter Care Teams Solid Waste Truck Driver Relationship Specialty Start Date End Date Niki Ramos MD [address] [place] [address] PCP - General Family Medicine 03/24/18 documented as of this encounter
--- OUTSIDE RECORDS SUMMARY | 2024-10-04 09:57 | XMS_ITS | Encounter Summary ---
Author Organization [employer] Address 75 [facility] 7t [place] [address] Care Team Providers Care Travel Ticketing Reviewer Name Role Phone Niki Ramos MD Primary Care Provide r Encounter Details Date Type Department Care Team (Latest Contact Info) Description 11/08/2018 Abstract [facility] CONVERSIONS Dental, Provider, DDS Social History [...] on filedocumented in this encounter Care Teams Travel Ticketing Reviewer Relationship Specialty Start Date End Date Niki Ramos MD [address] [place] [address] PCP - General Family Medicine 03/24/18 documented as of this encounter
--- OUTSIDE RECORDS SUMMARY | 2024-10-04 09:57 | XMS_ITS | Encounter Summary ---
Author Organization [employer] Address [address] [facility] 7t [place] [address] Care Team Providers Care Credit Control Manager Name Role Phone Niki Ramos MD Primary Care Provide r Encounter Details Date Type Department Care Team (Late st Contact Info) Description 09/03/2022 Abstract [facility] ADULT DENTAL [address] [place] [address] Sundeep Felipe, ROBERTO [address] [place] [address] Social History Tobacco Use Types Packs/Day Years [...] on filedocumented in this encounter Care Teams Credit Control Manager Relationship Specialty Start Date End Date Niki Ramos MD [address] [place] [address] PCP - General Family Medicine 03/24/18 documented as of this encounter
--- OUTSIDE RECORDS SUMMARY | 2024-10-04 09:57 | XMS_ITS | Encounter Summary ---
Author Organization [employer] Address 75 [facility] 7t [place] [address] Care Team Providers Care Funeral Home Associate Name Role Phone Niki Ramos MD Primary Care Provide r Encounter Details Date Type Department Care Team ([facility] st Contact Info) Description 05/27/2022 Abstract [facility] ADULT DENTAL [address] [place] [address] Dental, Provider, DDS Social History Tobacco Use [...] on filedocumented in this encounter Care Teams Funeral Home Associate Relationship Specialty Start Date End Date Niki Ramos MD [address] [place] [address] PCP - General Family Medicine 03/24/18 documented as of this encounter
--- OUTSIDE RECORDS SUMMARY | 2024-10-04 09:57 | XMS_ITS | Data Portability ---
Author Organization [employer] [facility] [place] [facility] Address [address] [place] [id number] Care Team Providers Care Injection Molding Operator Name Role Phone [facility] Referring Provider Assessment Encounter Date Assessment Date Assessment LastModified by Organization Details LastModified Time 05/20/2022 05/20/2022 I have reviewed and agree with the Assessment and Plan as documented by the Furnace Process Supervisor. I provided real -time medical direction via phone for this encounter, and was available for additional phone based assistance as needed. Patient given the opportunity to ask questions. Not available 05/20/2022 13:49:00 Plan of Treatment Reminders Order Date Submit Date Provider Last Modified By Organization Details Last Modified Time Details Appointments None recorded. Lab urinalysis , dipstick 2021 [email or web address] 0 [facility], [address] [place] [address], [id number], 13:53:37 culture, urine 2021 [place] [facility] (Centralized Electronic Ordering - All Locations), Patient Can Go To The Location Of Their Choice, [id number] 08:07:02 Referral None recorded. Procedures None recorded. Surgeries None recorded. Imaging None recorded. Medication Orders Levaquin 500 mg tablet 2021 [facility], [address] [place] [address], [id number], 14:01:24 Levaquin 500 mg tablet 2021 [email or web address] 0 Not available 13:53:37 Pyridium 100 mg tablet 2021 [facility], [address] [place] [address], [id number], 14:01:24 Patient TargetsNo targets recorded. Patient InstructionsNo instructions recorded. Reason for Referral None Reported. Results Created Date Observation Date Name Description Value Unit Range Abnormal Flag Note LastModifiedBy Organization Detail LastModifiedTime 05/20/2005/21/2022 URINE CULTU RE specimen description CLEAN CATCH (URINE ) Not Available [facility] (Centralized Electronic Ordering - All Locations) Patient Can Go To The Location Of Their Choice, [facility] 05/22/2022 08:06:59 05/20/20 22 05/21/2022 URINE CULTU RE special requests NONE Not Available [facility] (Centralized Electronic Ordering - All Locations) Patient Can Go To The Location Of Their Choice, [facility] 05/22/2022 08:06:59 05/20/2005/22/2022 URINE CULTU RE culture NO GROWTH Not Available [facility] (Centralized Electronic Ordering - All Locations) Patient Can Go To The Location Of Their Choice, [facility] 05/22/2022 08:06:59 05/20/2005/22/2022 URINE CULTU RE report status FINAL 2021 Not Available [facility] (Centralized Electronic Ordering - All Locations) Patient Can Go To The Location Of Their Choice, [facility] 05/22/2022 08:06:59 05/20/2005/20/2022 urina lysis , dipst ick Leukocytes trace Not Available Main - [address], [phone], 05/20/2022 13:48:42 05/20/20 22 05/20/2022 urina lysis , dipst ick Nitrite negati ve Not Available Main - Inst [facility] [address] [place] [address], [phone], 05/20/2022 13:48:42 05/20/20 22 05/20/2022 urina lysis , dipst ick [facility]ilinogen neg [facility] [address] [place] [address], [phone], 05/20/2022 13:48:42 05/20/20 22 05/20/2022 urina lysis , dipst ick Protein trace Not Available Main - [facility] [address] [place] [address], [phone], 05/20/2022 13:48:42 05/20/20 22 05/20/2022 urina lysis , dipst ick pH 6 Not Available Main - [facility] [address] [place] [address], [phone], 05/20/2022 13:48:42 05/20/20 22 05/20/2022 urina lysis , dipst ick Blood 50 rbc Not Available Main - [facility] [address] [place] [address], [phone], 05/20/2022 13:48:42 05/20/20 22 05/20/2022 urina lysis , dipst ick Specific [place] 1.010 Not Available Main - [facility] [address] [place] [address], [phone], 05/20/2022 13:48:42 05/20/20 22 05/20/2022 urina lysis , dipst ick Ketone neg Not Available Main - [facility] [address] [place] [address], [phone], 05/20/2022 13:48:42 05/20/20 22 05/20/2022 urina lysis , dipst ick Bilirubin neg Not Available Main - I nsted [address] [place] [address], [phone], 05/20/2022 13:48:42 05/20/20 22 05/20/2022 urina lysis , dipst ick Glucose neg Not Available Main - [facility] [address] [place] [address], [phone], 05/20/2022 13:48:42 05/20/20 22 05/20/2022 urina lysis , dipst ick Appearance sl cloudy Not Available Main - [facility] [address] [place] [address], [phone], 05/20/2022 13:48:42 05/20/20 22 05/20/2022 urina lysis , dipst ick Color pink Not Available Main - [facility] [address] [place] [address], [place], [address], 05/20/2022 13:48:42 Result Notes None recorded. Medical Equipment None Reported. Allergies Allergen ID Allergen Name Allergen Category Reaction Reaction Severity Criticality Documentation Date Start Date Code Code System Note Provider Name and Address Organization Details Recorded Time 1313 acetamino phen / oxycodone medicatio n Not available Not available Not available 05/20/2022 26959 3 RxNorm Michelle Sharif MD 30 [facility],[address], [place], [phone], [facility] - BCR Environmental 2 13:46:59 8126 acetamino phen medicatio n [...] Available Not Available No t Available [facility] 10 billion cell-200 [...] Details Last Updated DateTime 2 98.3 [degF] 93428.5 36 g 67 /min 96 % 96 % 18 /min 167.64 cm 98.3 [degF] 96 % 96 % 18 /min 67 /min 167.64 cm 29214.5 36 g 123 mm[Hg] 85 mm[Hg] 123 [...] Michelle Sharif MD Main - [facility] [address] [place] [phone] 05/20/2022 13:39:36 05/22/2022 12:40:50 Acute urinary tract infection [id number] N39.0 advised to push fluids- f/u with [...] Riojas Member ID Guarantor Name 05/20/2022 1 [facility] - DOS PRIOR TO 2022 - DUAL ELIGIBLE (MEDICARE REPLACEMENT/ADV ANTAGE - HMO) Jayesh Che [id number] Jayesh Che Notes Date Note Type Note Provider Name and Address Organization Details Recorded Time 05/20/2022 text/html HPI: 72 year old, Venezuelan speaking male, reporting dysuria with penile pain [...] to process visit SEGMD: Pt interviewed w/ per diem interpreter- only has penile pain inside when [...] .................... .................... .................... .................... .................... .................... ...... Furnace Process Supervisor Note: Sent to a call for a pt complaining of dysuria and penile pain x 2-3 days. SC8 arrives on scene, pt is alert and oriented. Airway is patent. Pt's primary language is Venezuelan; certified court/medical interpreter line used during visit. Pt complains [...] clear, concentrated; Urine dip: results uploaded to [employer]. [facility] orders Levofloxacin 500mg PO and urine culture to be sent to [facility]. Pt advised to take Tylenol 500mg q 6hrs prn, increase oral hydration, and follow up with urologist. Levofloxacin administered without incident. [facility] sends script to pt's pharmacy for Levofloxacin and Pyridium. Red flags discussed. Pt has no further questions. .................... .................... .................... .................... .................... .................... .................... . Disposition: Fulfilled Michelle Sharif MD [address] [facility],[address], [place], [address], [facility] [place] [place], ANGÉLICA 05/20/2022 14:33:50
--- OUTSIDE RECORDS SUMMARY | 2024-10-04 09:57 | XMS_ITS | Encounter Summary ---
Author Organization [employer] Address 75 [facility] 7t [place] [address] Care Team Providers Care Marina Dry Dock Manager Name Role Phone Niki Ramos MD Primary Care Provide r Encounter Details Date Type Department Care Team (Late st Contact Info) Description 03/12/2023 Orders Only [facility] MEDICINE [address] [place] [address] Provider, Yao, Social History Tobacco Use Types [...] documented as of this encounter Care Teams Marina Dry Dock Manager Relationship Specialty Start Date End Date Niki Ramos MD [address] [place] [address] PCP - General Family Medicine 03/24/18 documented as of this encounter
--- OUTSIDE RECORDS SUMMARY | 2024-10-04 09:57 | XMS_ITS | Encounter Summary ---
Author Organization [employer] Address [address] [facility] [address]t [place] [address] Care Team Providers Care Hog Operator Name Role Phone Niki Ramos MD Primary Care Provide r Encounter Details Date Type Department Care Team (Late st Contact Info) Description 06/05/2022 Abstract [facility] ADULT DENTAL [address] [place] [address] Sundeep Felipe DMD [address] [place] [address] Social History Tobacco Use Types Packs/Day Years [...] on filedocumented in this encounter Care Teams Hog Operator Relationship Specialty Start Date End Date Niki Ramos MD [address] [place] [address] PCP - General Family Medicine 03/24/18 documented as of this encounter
--- OUTSIDE RECORDS SUMMARY | 2024-10-04 09:57 | XMS_ITS | Encounter Summary ---
Author Organization [employer] Address [address] [facility] [address] [place] [address] Care Team Providers Care Gray Mixing Operator Name Role Phone Niki Ramos MD Primary Care Provide r Encounter Details Date Type Department Care Team (Late st Contact Info) Description 02/19/2023 Orders Only [facility] [address] [place] [address] Janelle Jones LPN Social History Tobacco Use [...] documented as of this encounter Care Teams Gray Mixing Operator Relationship Specialty Start Date End Date Niki Ramos MD [address] [place] [address] PCP - General Family Medicine 03/24/18 documented as of this encounter
--- OUTSIDE RECORDS SUMMARY | 2024-10-04 09:57 | XMS_ITS | Clinical Summary ---
Author Organization [employer] Address [address] [facility] [address] [place] [address] Care Team Providers Care Lockstitch Coat Joiner Name Role Phone Niki Ramos MD Primary [...] for 5 days 30 each 023 Active atorvastatin (Lipitor) 40 MG tabletIndication s:Essential [...] the morning, at noon, and at bedtime. 024 Active levoFLOXacin (Levaquin) 750 MG tablet Take 1 tablet by mouth Once per day. Active hydrOXYzine HCl (Atarax) 25 MG tabletIndication s:Pruritus Take 1 tablet (25 mg) by mouth if needed at bedtime for itching. 30 tablet 025 Active cholecalciferol (Vitamin D-3) 25 MCG (1000 UT) tabletIndication s:Vitamin D deficiency Take 1 tablet (25 mcg) by mouth Once per day. 60 tablet 1 025 Active omeprazole (PriLOSEC) [address] capsule TAKE 1 CAPSULE BY MOUTH ONCE DAILY BEFORE MEALS 90 capsule 2 025 Active montelukast (Singulair) 10 MG tabletIndication s:Asthma in adult, mild intermittent, uncomplicated TAKE 1 TABLET BY MOUTH ONCE DAILY AT BEDTIME 30 tablet 2 025 Active omeprazole (PriLOSEC) [address] capsule TAKE 1 CAPSULE BY MOUTH ONCE DAILY BEFORE MEALS 90 capsule 2 024 2024 Discontinued amLODIPine (Norvasc) 2.5 MG tabletIndication s:Essential hypertension Take 2 tablets (5 mg) by mouth Once per day. 60 tablet 11 024 2024 Discontinued montelukast (Singulair) 10 MG [...] PM EST): I will refer him to mattress specialist Allergy 07/12/2023 Dyspnea on exertion 01/12/2023 [...] Coping mechanisms- deep breathing 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 09/17/2017 09/01/19 Encounters Date Type Department Care Team Description 09/25/2024 Orders Only [facility] [address] [place] [phone] Niki Ramos MD 09/25/[address] [address] Niki Ramos MD Medication Question 09/16/2024 Refill [facility] [address] [place] [phone] Niki Ramos MD Asthma in adult, mild intermittent, uncomplicated 09/13/2024 Orders Only [facility] External Provider, [employer] 09/12/2024 Refill [facility] [address] [place] [phone] Niki Ramos MD 09/04/[address] [address] Niki Ramos MD Results 09/04/2024 Orders Only GENERIC EXTERNAL DATA DEPARTMENT Provider, Generic External Data 09/01/2024 10:45 AM EST Office Visit [address] [address] Niki Ramos MD Pruritus (Primary Dx); Mood disorder ([facility]); Essential hypertension; Colon cancer screening; Benign prostatic hyperplasia with lower urinary tract symptoms, symptom details unspecified 09/01/2024 Travel 08/31/2024 Orders Only [address] [address] Niki Ramos MD Vitamin D deficiency (Primary Dx) 08/31/[address] [address] Niki Ramos MD Medication Question 08/24/2024 10:00 AM EST Office Visit [facility] [address] [place] [address] Sundeep Felipe DMD 07/10/2024 10:00 AM EST Office Visit [facility] [address] [place] [address] Sundeep Felipe DMD from Last 3 Months [...] TRY IN Routine 07/10/2024 10:00 AM EST HM COLONOSCOPY Routine 03/07/2020 from Last 3 Months or Most Recently Relevant to Health Maintenance Results * Stress test with myocardial perfusion (09/13/2024 9:40 AM EDT) 09/13/2024 9:40 AM EDT Narrative [facility] - 09/17/2024 11:42 AM EDT ? [employer] ?[address] ?[place] [address] ?Nuclear Medicine Report ? Signed ? Patient: Che,Jayesh ?MR#: [id number] ?? 6 ? : 1950 ?Acct:[id number] ? Age/Sex: 74 / M ?ADM Date: 03/12/25 ? Loc: HO.CARD ? Attending Dr: Ralph Lyman MD ? Ordering Physician: Ralph Lyman MD ?? Date of Service: 09/13/24 ?? Procedure(s): NM cardiolite stress test ?? Accession Number(s): [id number] ? cc: Niki Ramos MD; Ralph Lyman [...] DD/ 0940 ? TD/TT: 09/15/24 1210 ? Life Skills Teacher: ? Procedure Note Donotuseinterpreter, Image - 09/17/[address] [address] Nuclear Medicine Report Signed Patient: Jayesh CheMR#: [id number] 6 : 1950Acct:[id number] Age/Sex: 74 / MADM Date: 09/13/24 Loc: [facility] Attending Dr: Ralph Lyman MD Ordering Physician: Ralph Lyman MD Date of Service: 09/13/24 Procedure(s): NM cardiolite stress test Accession Number(s): [id number] cc: Niki Ramos MD; Ralph Lyman MD [...] 09/17/24 1139 DD/ 0940 TD/TT: 09/15/24 1210 Life Skills Teacher: us [employer] External Provider CV STRE SS PROCEDURES Final Result Performing Organization Address [facility] Co de Phone Number [facility] [address] [place] [address] [phone] * (ABNORMAL) Vitamin D, 25-Hydroxy, Total, Immunoassay (09/04/2024 7:59 AM EST) Vitamin D 25-OH Total 26.9(L) >30 ng/mL [facility] Comment:Health Based Referen ce Values*< 20 ng/mL [id number] ng/mL Insufficient> 30 ng/mL Sufficient*Leora CANDELARIA. N [...] BLOOD ORDERABLES Final Result Performing Organization Address City/[facility]/ZIP Co de Phone Number [facility] [address] [place] [phone] * TSH with Reflex to Free T4 (09/04/2024 7:59 AM EST) TSH reflex Free T4 1.23 0.32 - 4.0 uIU/mL [facility] Blood Venous blood specimen / Unknown 09/04/2024 7:59 AM EST 09/04/2024 11:36 AM EST us Niki Simmons MD LAB BLOOD ORDERABLES Final Result [facility] [address] [place] [phone] * (ABNORMAL) PSA, Total With Reflex to PSA, Free (09/04/2024 7:59 AM EST) PSA,Total (Free>4and<10) 10.94(H ) 0.00 - 4.00 ng/mL [facility] Comment:A Free PSA was [...] Provider LAB BLOOD ORDERAB LES Final Result [facility] [address] [place] [phone] * (ABNORMAL) CBC auto differential (09/04/2024 7:59 AM EST) White Blood Count 3.7(L) 4.8 - 10.8 X10*3/uL [facility] Red Blood Count 4.93 4.60 - 5.80 X10*6/uL [facility] Hemoglobin 14.1 14.0 - 18.0 g/dl [facility] Hematocrit 43.3 42.0 - 52.0 % [facility] Mean Corpuscular Volume 87.8 80.0 - 98.0 fL [facility] Mean Corpuscular Hemoglobin 28.6 27.0 - 33.0 pg [facility] Mean Corpuscular HGB Conc 32.6 31.0 - 36.0 g/dl [facility] Red Cell Distribution Width 12.6 11.0 - 16.0 % [facility] Platelet Count 180 160 - 400 X10*3/uL [facility] Mean Platelet Volume 10.5 9.4 - 12.4 fL [facility] Neutrophils Percent Auto 64.0 45 - 73 % [facility] Imm Gran Pct Auto 0.3 0.0 - 0.4 % [facility] Lymphocytes Percent Auto 23.6 20 - 40 % [facility] Monocytes Percent Auto 7.0 2 - 11 % [facility] Eosinophils Percent Auto 4.3(H) 0 - 4 % [facility] Basophils Percent Auto 0.8 0 - 2 % [facility] NRBC Pct Auto 0.0 0.0 - 0.2 /100WBC [facility] Neutrophils Absolute Auto 2.4 2.0 - 8.3 x10*3/uL [facility] Imm Gran Abs Auto 0.01 0.00 - 0.03 X10*3/uL [facility] Lymphocytes Absolute Auto 0.9(L) 1.2 - 4.9 X10*3/uL [facility] Monocytes Absolute Auto 0.3 0.1 - 1.2 X10*3/uL [facility] Eosinophils Absolute Auto 0.2 0.0 - 0.4 X10*3/uL [facility] Basophils Absolute Auto 0.0 0.0 - 0.2 X10*3/uL [facility] NRBC Abs Auto 0.000 0.0 - 0.012 X10*3/uL [facility] Blood Venous blood specimen / Unknown 09/04/2024 7:59 AM EST 09/04/2024 11:36 AM EST Niki Simmons MD LAB BLOOD ORDERABLES Final Result Performing Organization Address [facility] Co de Phone Number [facility] [address] [place] [phone] * Hepatitis C Antibody with Reflex to HCV, RNA, Quantitative, Real-Time PCR (09/04/2024 7:59 AM EST) Pathologist [facility] Hepatitis C Antibody Nonreactive Nonreactive [facility] Comment:Antibodies to HCV no t detected; does not exclude early acuteHCV infection. Blood Venous blood specimen / Unknown 09/04/2024 7:59 AM EST 09/04/2024 11:36 AM EST us Niki Simmons MD LAB BLOOD ORDERABLES Final Result Performing Organization Address [facility] de Phone Number [facility] [address] [place] [phone] * HIV-1/2 Antigen and Antibodies, Fourth Generation, with Reflexes (09/04/2024 7:59 AM EST) HIV AB/AG Nonreactive Nonreactive [facility] Comment:HIV-1 p24 Ag and/or HIV-1/HIV-2 Ab not detected.A test result that is nonreactive does not exclude thepossibility of exposure to or infection with HIV-1 and/orHIV-2. Nonreactive results in this assay for individualswith prior exposure to HIV-1 and/or HIV-2 may be due toantigen and antibody levels that are below the limit ofdetection of this assay.[employer] HIV Ag/Ab Combo assay result andsupplemental assay results should be interpreted inconjunction with the patient's clinical presentation,history and other laboratory results. If the results areinconsistent with clinical evidence, additional testing issuggested to confirm the result. Blood Venous blood specimen / Unknown 09/04/2024 7:59 AM EST 09/04/2024 11:36 AM EST us Niki Simmons MD LAB BLOOD ORDERABLES Final Result Performing Organization Address [facility]/ZIP Co de Phone Number [facility] [address] [place] [phone] * Hemoglobin A1c (09/04/2024 7:59 AM EST) Hemoglobin A1c 5.7 <6.0 % [facility] Comment:Hemoglobin A1C Refer ence Range Adults: 4.8 - 6.0 % Non diabetic: < 6.0 % Goal: < 7.0 %Additional Action Suggested: > 8.0 %Note: Hemoglobin A1c results are invalid for patients with abnormal amounts of HbF. Blood transfusions may impact the HbA1c concentration in the patient sample. Estimated Average Glucose 117 mg/dL [facility] Comment:eAG = Estimated ave rage glucose which is %A1C expressed asaverage glucose, using the formula of the O9F-JaagqypDoupazb Glucose study (ADAG), Diabetes Care, Vol.31,#8,Feb. 2007 Blood Venous blood specimen / Unknown 09/04/2024 7:59 AM EST 09/04/2024 11:36 AM EST us Niki Simmons MD LAB BLOOD ORDERABLES Final Result Performing Organization Address [facility]/ZIP Co de Phone Number [facility] [address] [place] [phone] * Lipid Panel, Standard (09/04/2024 7:59 AM EST) Triglycerides 74 <150 mg/dL [facility] Comment:Desirable Triglyceri de: less than 150 mg/dLBorderline High Triglyceride 150-199 mg/dLHigh Triglyceride: 200-499 mg/dLVery High Triglyceride: greater than or equal to 5OO mg/dL Cholesterol 106 <200 mg/dL [facility] Comment:Desirable Cholestero l: less than 200 mg/dLBorderline High Cholesterol: 200-239 mg/dLHigh Cholesterol: greater than 239 mg/dL LDL Cholesterol Calculated 47 <100 mg/dL [facility] Comment:Desirable LDL: less than 100 mg/dLNear Optimal/Above Optimal LDL: 110- 129 mg/dLBorderline High LDL: 130-159 mg/dLHigh LDL: 160-189 mg/dLVery High LDL: greater than or equal to 190 mg/dL HDL Cholesterol 45 >40 mg/dL [facility] Comment:Desirable HDL: great er than 40 mg/dL Note: This HDL assay may give artificially low results in patients with liver disease. Blood Venous blood specimen / Unknown 09/04/2024 7:59 AM EST 09/04/2024 11:36 AM EST us Niki Simmons MD LAB BLOOD ORDERABLES Final Result [facility] [address] [place] [address] [phone] * (ABNORMAL) Comprehensive Metabolic Panel (09/04/2024 7:59 AM EST) Sodium 143 135 - 145 mmol/L [facility] Potassium 3.8 3.3 - 5.1 mmol/L [facility] Chloride 108 96 - 108 mmol/L [facility] Carbon Dioxide 28 22 - 29 mmol/L [facility] Anion Gap 11(L) 12 - 20 [facility] Urea Nitrogen (BUN) 16 9 - 16 mg/dL [facility] Creatinine, Serum 0.75 0.5 - 1.4 mg/dL [facility] Estimated Glomerular Filt Rate >60 [facility] Comment:Chronic Kidney Disea se: Estimated GFR < 60 mL/min/1.15k5Kmsyxt Kidney Disease: Estimated GFR < 15 mL/min/1.73m2 Glucose 104 60 - 115 mg/dL [facility] Calcium 8.8 8.4 - 10.2 mg/dL [facility] Bilirubin, Total 0.6 0.0 - 1.0 mg/dL [facility] Aspartate Amino Transferase 27 5 - 37 U/L [facility] Alanine Aminotransferase 35 0 - 40 U/L [facility] Total Protein 6.8 6.5 - 8.0 g/dL [facility] Albumin Level 4.1 3.5 - 5.0 g/dL [facility] Alkaline Phosphatase 47 39 - 117 U/L [facility] Blood Venous blood specimen / Unknown 09/04/2024 7:59 AM EST 09/04/2024 11:36 AM EST us Niki Simmons MD LAB BLOOD ORDERABLES Final Result Performing Organization Address City/State/[facility] Co de Phone Number [facility] [address] [place] [phone] * Hm Colonoscopy (03/07/2020) us Historical Provider HEALTH MAINTENANCE Final Result from Last 3 Months or Most Recently Relevant to Health Maintenance Insurance [facility] Care Teams Lockstitch Coat Joiner Relationship Specialty Start Date End Date Niki Ramos MD [address] [place] [address] PCP - General Family Medicine 03/24/18
--- OUTSIDE RECORDS SUMMARY | 2024-10-04 09:57 | XMS_ITS | Encounter Summary ---
Author Organization [employer] Address [address] [facility] [address] [place] [address] Care Team Providers Care Vaccines Solutions Specialist Name Role Phone Niki Ramos MD Primary Care Provide r Encounter Details Date Type Department Care Team (Late st Contact Info) Description 06/22/2022 Abstract [facility] [address] [place] [address] Sachin Chow, DMD [address] [place] [address] Social History Tobacco Use Types Packs/Day Years [...] on filedocumented in this encounter Care Teams [employer] Specialist Relationship Specialty Start Date End Date Niki Ramos MD [address] [place] [address] PCP - General Family Medicine 03/24/18 documented as of this encounter
== END ==
LOC: HO.CARD 09:05
PROVIDERS: PCP Internal Medicine; Visit Provider Nurse Practitioner Family
DX: R00.2 Palpitations (principal); R07.2 Precordial pain
CPT/HCPCS: 93242; 93306

== ENCOUNTER → 2024-10-04 09:09 | Outpatient (BNV) | payer OTHER, SELFPAY | PROVIDERS: PCP Internal Medicine; Visit Provider Internal Medicine | DX: I77.810 Thoracic aortic ectasia (principal) | CPT/HCPCS: 93306 ==

== ENCOUNTER 2024-10-17 07:53 | Inpatient (IN) | payer OTHER, SELFPAY ==
[2024-10-17] VITALS (18 sets, daily range): BP systolic 98–140; BP diastolic 49–86; PULSE 68–119; RESP 14–20; TEMP 36.7–37.7; O2SAT 93–98; BMI 23.8
--- NOTE | 2024-10-17 | ECG_ITS ---
Test Reason : tachy Blood Pressure : */* mmHG Vent. Rate : 92 BPM Atrial Rate : 92 BPM P-R Int : 124 ms QRS Dur : 98 ms QT Int : 346 ms P-R-T Axes : 67 60 53 degrees QTcB Int : 427 ms Normal sinus rhythm Normal ECG When compared with ECG of 16-Nov-2023 14:35, No significant change was found Referred By: Generic ED Physician Electronically Signed By: JARED LALA MD
--- NOTE | ~2024-10-17 | XR_ITS ---
EXAMINATION: XR HAND, LEFT CLINICAL INFORMATION: cellulitis, pain COMPARISON: None available. TECHNIQUE: PA, lateral, and oblique views of the left hand. FINDINGS: No fracture, dislocation, or suspicious bone lesion. Normal bone mineralization. No region of permeative bone change is identified. Normal alignment. Mild degenerative changes throughout the DIP joints of the digits, involving the first MCP joint, and involving the CMC joint and STT joints of the wrist. Diffuse dorsal soft tissue swelling. No soft tissue emphysema. No radiopaque foreign body seen. XR/XR hand LT min 3V IMPRESSION: 1. No acute bony abnormalities. 2. Dorsal soft tissue swelling. Electronically signed by: Mikey Roger MD 10/17/2024 10:36 AM EDT
[2024-10-17 08:26] LABS: MANUAL DIFF FLAG NO
[2024-10-17 08:28] LABS: Basophils Percent Auto 0.3 % (0-2); Eosinophils Percent Auto 0.1 % (0-4); Hematocrit 42.1 % (42.0-52.0); Hemoglobin 14.2 g/dl (14.0-18.0); Imm Gran Abs Auto 0.05 X10*3/uL (0.00-0.03); Imm Gran Pct Auto 0.4 % (0.0-0.4); Lymphocytes Absolute Auto 0.8 X10*3/uL (1.2-4.9); Mean Corpuscular HGB Conc 33.7 g/dl (31.0-36.0); Mean Corpuscular Volume 85.9 fL (80.0-98.0); Mean Platelet Volume 9.8 fL (9.4-12.4); Monocytes Absolute Auto 0.7 X10*3/uL (0.1-1.2); Monocytes Percent Auto 6.6 % (2-11); Neutrophils Absolute Auto 9.6 x10*3/uL (2.0-8.3); Neutrophils Percent Auto 85.6 % (45-73); Platelet Count 171 X10*3/uL (160-400); Red Cell Distribution Width 12.4 % (11.0-16.0); White Blood Count 11.2 X10*3/uL (4.8-10.8)
--- NOTE | 2024-10-17 08:32 | MHC.EDTECH ---
this tech obtained EKG from pt in triage, EKG machine down and would not allow me to save, cardiology was called for consult on machine, unable to submit EKG I obtained, delayed at this time, (was normal when first obtained) when machine is fixed, will reattempt
[2024-10-17 08:45] LABS: Alanine Aminotransferase 40 U/L (0-40); Albumin Level 4.4 g/dL (3.5-5.0); Alkaline Phosphatase 55 U/L (39-117); Anion Gap 11 (12-20); Aspartate Amino Transferase 25 U/L (5-37); Bilirubin Total 1.4 mg/dL (0.0-1.0); Blood Urea Nitrogen 15 mg/dL (9-16); Calcium 9.6 mg/dL (8.4-10.2); Carbon Dioxide 26 mmol/L (22-29); Chloride 107 mmol/L (96-108); Creatinine Clr Calc Pharmacy 75.7; Estimated Glomerular Filt Rate > 60; Glucose Random 161 mg/dL (60-115); Potassium 3.6 mmol/L (3.3-5.1); Sodium 140 mmol/L (135-145); Total Protein 6.9 g/dL (6.5-8.0)
--- OUTSIDE RECORDS SUMMARY | 2024-10-17 09:22 | XMS_ITS | Clinical Summary ---
Author Organization [employer] Address [address] [facility] 7t [place] [address] Care Team Providers Care Meteorological Engineer Name Role Phone Niki Ramos MD [...] AT BEDTIME 30 tablet 2 025 Active amLODIPine (Norvasc) 2.5 MG tabletIndication s:Essential [...] PM EST): I will refer him to living specialist Allergy 07/12/2023 Dyspnea on exertion 01/12/2023 [...] for change. PLAN: 1. Follow up with [facility]: Not recommended for follow-up 2. Patient goal is to continue OP therapy and explore additional coping mechanisms. 3. Behavioral Recommendations a. OP therapy b. Coping mechanisms- deep breathing C. 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/01/2024 Dilatation of aorta 09/17/2017 09/01/19 Encounters Date Type Department Care Team Description 10/17/2024 Orders Only GENERIC EXTERNAL DATA DEPARTMENT Provider, Generic External Data 09/25/2024 Orders Only [address] [address] Niki Ramos MD 09/25/[address] [address] Niki Ramos MD Medication Question 09/16/2024 Refill [facility] [address] [place] [phone] Niki Ramos MD Asthma in adult, mild intermittent, uncomplicated 09/13/2024 Orders Only [facility] External Provider, [facility] 09/12/2024 Refill [facility] [address] [place] [address] Niki Ramos MD 09/04/[address] [address] Niki Ramos MD Results 09/04/2024 Orders Only GENERIC EXTERNAL DATA DEPARTMENT Provider, Generic External Data 09/01/2024 10:45 AM EST Office Visit [address] [address] Niki Ramos MD Pruritus (Primary Dx); Mood disorder ([facility]); Essential hypertension; Colon cancer screening; Benign prostatic hyperplasia with lower urinary tract symptoms, symptom details unspecified 09/01/2024 Travel 08/31/2024 Orders Only [address] [address] Niki Ramos MD Vitamin D deficiency (Primary Dx) 08/31/[address] [address] Niki Ramos MD Medication Question 08/24/2024 10:00 AM EST Office Visit [facility] [address] [place] [phone] Sundeep Felipe DMD from Last 3 Months [...] Procedure Name Priority Date/Time Associated Diagnosis Comments COMPREHENSIVE METABOLIC PANEL Routine 10/17/2024 8:18 AM EDT CBC WITH AUTO DIFFERENTIAL Routine 10/17/2024 8:18 AM EDT STRESS TEST WITH MYOCARDIAL PERFUSION Routine 09/13/2024 [...] AND TEETH) Routine 08/24/2024 10:00 AM EST HM COLONOSCOPY Routine 03/07/2020 from Last 3 Months or Most Recently Relevant to Health Maintenance Results * (ABNORMAL) CBC auto differential (10/17/2024 8:18 AM EDT) Only the most recent of2 resultswithin the time period is included. White Blood Count 11.2(H) 4.8 - 10.8 X10*3/uL [facility] Red Blood Count 4.90 4.60 - 5.80 X10*6/uL [facility] Hemoglobin 14.2 14.0 - 18.0 g/dl [facility] Hematocrit 42.1 42.0 - 52.0 % [facility] Mean Corpuscular Volume 85.9 80.0 - 98.0 fL [facility] Mean Corpuscular Hemoglobin 29.0 27.0 - 33.0 pg [facility] Mean Corpuscular HGB Conc 33.7 31.0 - 36.0 g/dl [facility] Red Cell Distribution Width 12.4 11.0 - 16.0 % [facility] Platelet Count 171 160 - 400 X10*3/uL [facility] Mean Platelet Volume 9.8 9.4 - 12.4 fL [facility] Neutrophils Percent Auto 85.6(H) 45 - 73 % [facility] Imm Gran Pct Auto 0.4 0.0 - 0.4 % [facility] Lymphocytes Percent Auto 7.0(L) 20 - 40 % [facility] Monocytes Percent Auto 6.6 2 - 11 % [facility] Eosinophils Percent Auto 0.1 0 - 4 % [facility] Basophils Percent Auto 0.3 0 - 2 % [facility] NRBC Pct Auto 0.0 0.0 - 0.2 /100WBC [facility] Neutrophils Absolute Auto 9.6(H) 2.0 - 8.3 x10*3/uL [facility] Imm Gran Abs Auto 0.05(H) 0.00 - 0.03 X10*3/uL [facility] Lymphocytes Absolute Auto 0.8(L) 1.2 - 4.9 X10*3/uL [facility] Monocytes Absolute Auto 0.7 0.1 - 1.2 X10*3/uL [facility] Eosinophils Absolute Auto 0.0 0.0 - 0.4 X10*3/uL [facility] Basophils Absolute Auto 0.0 0.0 - 0.2 X10*3/uL [facility] NRBC Abs Auto 0.000 0.0 - 0.012 X10*3/uL [facility] 10/17/2024 8:18 AM EDT 10/17/2024 8:25 AM EDT us Generic External Data Provider LAB BLOOD ORDERAB LES Final Result [facility] [address] [place] [address] [phone] * (ABNORMAL) Comprehensive Metabolic Panel (10/17/2024 8:18 AM EDT) Only the most recent of2 resultswithin the time period is included. Sodium 140 135 - 145 mmol/L [facility] Potassium 3.6 3.3 - 5.1 mmol/L [facility] Chloride 107 96 - 108 mmol/L [facility] Carbon Dioxide 26 22 - 29 mmol/L [facility] Anion Gap 11(L) 12 - 20 [facility] Urea Nitrogen (BUN) 15 9 - 16 mg/dL [facility] Creatinine, Serum 0.80 0.5 - 1.4 mg/dL [facility] Creatinine Clr Calc Pharmacy 75.7 [facility] Comment:eGFR (calculated fro m the MDRD study equation) and eCrCl(calculated from the Cockcroft-Gault equation) are based ondifferent parameters and may not yield comparable results.If eCrCl result is absurd, please check patient'sheight/weight. Estimated Glomerular Filt Rate >60 [facility] Comment:Chronic Kidney Disea se: Estimated GFR < 60 mL/min/1.59n5Ijmbzi Kidney Disease: Estimated GFR < 15 mL/min/1.73m2 Glucose 161(H) 60 - 115 mg/dL [facility] Calcium 9.6 8.4 - 10.2 mg/dL [facility] Bilirubin, Total 1.4(H) 0.0 - 1.0 mg/dL [facility] Aspartate Amino Transferase 25 5 - 37 U/L [facility] Alanine Aminotransferase 40 0 - 40 U/L [facility] Total Protein 6.9 6.5 - 8.0 g/dL [facility] Albumin Level 4.4 3.5 - 5.0 g/dL [facility] Alkaline Phosphatase 55 39 - 117 U/L [facility] 10/17/2024 8:18 AM EDT 10/17/2024 8:25 AM EDT us Generic External Data Provider LAB BLOOD ORDERAB LES Final Result [facility] [address] [place] [address] [phone] * Stress test with myocardial perfusion (09/13/2024 9:40 AM EDT) 09/13/2024 9:40 AM EDT Narrative [facility] - 09/17/2024 11:42 AM EDT ? [facility] ?[address] ?[place] [address] ?Nuclear Medicine Report ? Signed ? Patient: Jayesh Che ?MR#: [id number] ?? 6 ? : 1950 ?Acct:[id number] ? Age/Sex: 74 / M ?ADM Date: 09/13/24 ? Loc: HO.CARD ? Attending Dr: Ralph Lyman MD ? Ordering Physician: Ralph Lyman MD ?? Date of Service: 09/13/24 ?? Procedure(s): NM cardiolite stress test ?? Accession Number(s): [id number] ? cc: Niki Ramos MD; Ralph Lyman [...] DD/ 0940 ? TD/TT: 09/15/24 1210 ? Financial Planning Consultant: ? Procedure Note Emely, Image - 09/17/2024 [place] [address] Nuclear Medicine Report Signed Patient: Luis Che#: [id number] 6 : 1950Acct:[id number] Age/Sex: 74 / MADM Date: 09/13/24 Loc: SEL[facility] Attending Dr: Ralph Lyman MD Ordering Physician: Ralph Lyman MD Date of Service: 09/13/24 Procedure(s): NM cardiolite stress test Accession Number(s): [id number] cc: Niki Ramos MD; Ralph Lyman MD [...] 09/17/24 1139 DD/ 0940 TD/TT: 09/15/24 1210 Financial Planning Consultant: us [facility] External Provider CV STRE SS PROCEDURES Final Result [facility] [address] [place] [address] * (ABNORMAL) Vitamin D, 25-Hydroxy, Total, Immunoassay (09/04/2024 7:59 AM EST) Vitamin D 25-OH Total 26.9(L) >30 ng/mL [facility] Comment:Health Based Referen ce Values*< 20 ng/mL Ilzuyhgnu48-02 ng/mL Insufficient> 30 ng/mL Sufficient*Leora CANDELARIA. N [...] Final Result Performing Organization Address [facility] Co de Phone Number [facility] [address] [place] [phone] * TSH with Reflex to Free T4 (09/04/2024 7:59 AM EST) TSH reflex Free T4 1.23 0.32 - 4.0 uIU/mL [facility] Blood Venous blood specimen / Unknown 09/04/2024 7:59 AM EST 09/04/2024 11:36 AM EST us Niki Simmons MD LAB BLOOD ORDERABLES Final Result Performing Organization Address [facility] Co de Phone Number [facility] [address] [place] [phone] * (ABNORMAL) PSA, Total With Reflex to PSA, Free (09/04/2024 7:59 AM EST) PSA,Total (Free>4and<10) 10.94(H ) 0.00 - 4.00 ng/mL [facility] Comment:A Free PSA was not p [...] ORDERAB LES Final Result Performing Organization Address [facility]/ZIP Co de Phone Number [facility] [address] [place] [phone] * Hepatitis C Antibody with Reflex [...] Final Result Performing Organization Address [facility] Co de Phone Number [facility] [address] [place] [phone] * HIV-1/2 Antigen and Antibodies, Fourth Generation, with Reflexes (09/04/2024 7:59 AM EST) HIV AB/AG Nonreactive Nonreactive [facility] Comment:HIV-1 p24 Ag and/or HIV-1/HIV-2 Ab not detected.A test result that is nonreactive does not exclude thepossibility of exposure to or infection with HIV-1 and/orHIV-2. Nonreactive results in this assay for individualswith prior exposure to HIV-1 and/or HIV-2 may be due toantigen and antibody levels that are below the limit ofdetection of this assay.The [employer] HIV Ag/Ab Combo assay result andsupplemental assay results should be interpreted inconjunction with the patient's clinical presentation,history and other laboratory results. If the results areinconsistent with clinical evidence, additional testing issuggested to confirm the result. Blood Venous blood specimen / Unknown 09/04/2024 7:59 AM EST 09/04/2024 11:36 AM EST us Niki Simmons MD LAB BLOOD ORDERABLES Final Result Performing Organization Address [facility] Co de Phone Number [facility] [address] [place] [phone] * Hemoglobin A1c (09/04/2024 7:59 AM EST) Hemoglobin A1c 5.7 <6.0 % [facility] Comment:Hemoglobin A1C Refer ence Range [...] asaverage glucose, using the formula of the [id number] Glucose study (ADAG), Diabetes Care, Vol.31,#8,Feb. 2007 Blood Venous blood specimen / Unknown 09/04/2024 7:59 AM EST 09/04/2024 11:36 AM EST Niki Simmons MD LAB BLOOD ORDERABLES Final Result Performing Organization Address [facility] Co de Phone Number [facility] [address] [place] [phone] * Lipid Panel, Standard (09/04/2024 7:59 AM EST) Triglycerides 74 <150 mg/dL [facility] Comment:Desirable Triglyceri de: less than [...] 190 mg/dL HDL Cholesterol 45 >40 mg/dL [facility] Comment:Desirable HDL: great er than 40 mg/dL Note: This HDL assay may give artificially low results in patients with liver disease. Blood Venous blood specimen / Unknown 09/04/2024 7:59 AM EST 09/04/2024 11:36 AM EST Niki Simmons MD LAB BLOOD ORDERABLES Final Result [facility] [address] [place] [phone] * Hm Colonoscopy (03/07/2020) Historical Provider HEALTH MAINTENANCE Final Result from Last 3 Months or Most Recently Relevant to Health Maintenance Insurance [facility] Care Teams Meteorological Engineer Relationship Specialty Start Date End Date Niki Ramos MD [address] [place] [address] PCP - General Family Medicine 03/24/18
--- OUTSIDE RECORDS SUMMARY | 2024-10-17 09:23 | XMS_ITS | Encounter Summary ---
Author Organization [employer] Address [address] [facility] 7t [place] [address] Care Team Providers Care Cmm Technician Name Role Phone Niki Ramos MD Primary Care Provide r Encounter Details Date Type Department Care Team (Latest Contact Info) Description 04/09/2022 Abstract [facility] CONVERSIONS Dental, Provider, DDS Social History [...] on filedocumented in this encounter Care Teams Cmm Technician Relationship Specialty Start Date End Date Niki Ramos MD [address] [place] [address] PCP - General Family Medicine 03/24/18 documented as of this encounter
--- OUTSIDE RECORDS SUMMARY | 2024-10-17 09:23 | XMS_ITS | Encounter Summary ---
Author Organization [employer] Address [address] [facility] [address] 7[address] [place] [address] Care Team Providers Care Loom Setter Fourdrinier Name Role Phone Niki Ramos MD Primary Care Provide r Encounter Details Date Type Department Care Team (Late st Contact Info) Description 02/19/2023 Orders Only [facility] [address] [place] [address] Janelle Jones LPN Social History Tobacco Use [...] documented as of this encounter Care Teams Loom Setter Fourdrinier Relationship Specialty Start Date End Date Niki Ramos MD [address] [place] [address] PCP - General Family Medicine 03/24/18 documented as of this encounter
--- OUTSIDE RECORDS SUMMARY | 2024-10-17 09:23 | XMS_ITS | Encounter Summary ---
Author Organization [employer] Address 75 [facility] 7t [place] [address] Care Team Providers Care Collections Professional Name Role Phone Niki Ramos MD Primary Care Provide r Encounter Details Date Type Department Care Team (Late st Contact Info) Description 07/30/2022 Abstract [facility] ADULT DENTAL [address] [place] [address] Sundeep Felipe, ROBERTO [address] [place] [address] Social History Tobacco Use Types Packs/Day Years [...] on filedocumented in this encounter Care Teams Collections Professional Relationship Specialty Start Date End Date Niki Ramos MD [address] [place] [address] PCP - General Family Medicine 03/24/18 documented as of this encounter
--- OUTSIDE RECORDS SUMMARY | 2024-10-17 09:23 | XMS_ITS | Encounter Summary ---
Author Organization [employer] Address [address] [facility] 7t [place] [address] Care Team Providers Care Mud Mixer Name Role Phone Niki Ramos MD Primary Care Provide r Encounter Details Date Type Department Care Team (Latest Contact Info) Description 11/08/2018 Abstract [facility] CONVERSIONS Dental, Provider, DDS Social [...] on filedocumented in this encounter Care Teams Mud Mixer Relationship Specialty Start Date End Date Niki Ramos MD [address] [place] [address] PCP - General Family Medicine 03/24/18 documented as of this encounter
--- OUTSIDE RECORDS SUMMARY | 2024-10-17 09:23 | XMS_ITS | Encounter Summary ---
Author Organization [employer] Address 75 [facility] 7t [place] [address] Care Team Providers Care Manager Home Healthcare Name Role Phone Niki Ramos MD Primary Care Provide r Encounter Details Date Type Department Care Team (Late st Contact Info) Description 06/05/2022 Abstract [facility] ADULT DENTAL [address] [place] [address] Sundeep Felipe DMD [address] [place] [address] Social History Tobacco Use Types Packs/Day Years [...] filedocumented in this encounter Care Teams Manager Home Healthcare Relationship Specialty Start Date End Date Niki Ramos MD [address] [place] [address] PCP - General Family Medicine 03/24/18 documented as of this encounter
--- OUTSIDE RECORDS SUMMARY | 2024-10-17 09:23 | XMS_ITS | Encounter Summary ---
Author Organization [employer] Address [address] [facility] 7t [place] [address] Care Team Providers Care Angle Shear Operator Name Role Phone Niki Ramos MD Primary Care Provide r Encounter Details Date Type Department Care Team (Late st Contact Info) Description 06/22/2022 Abstract [facility] ADULT DENTAL [address] [place] [address] Sachin Chow, DMD [address] [place] [address] Social History Tobacco Use Types Packs/Day Years [...] on filedocumented in this encounter Care Teams Angle Shear Operator Relationship Specialty Start Date End Date Niki Ramos MD [address] [place] [address] PCP - General Family Medicine 03/24/18 documented as of this encounter
--- OUTSIDE RECORDS SUMMARY | 2024-10-17 09:23 | XMS_ITS | Encounter Summary ---
Author Organization [employer] Address [address] [facility] 7t [place] [address] Care Team Providers Care Pegger Name Role Phone Niki Ramos MD Primary Care Provide r Encounter Details Date Type Department Care Team (Late st Contact Info) Description 09/03/2022 Abstract [facility] ADULT DENTAL [address] [place] [address] Sundeep Felipe, ROBERTO [address] [place] [address] Social History Tobacco Use Types Packs/Day Years [...] on filedocumented in this encounter Care Teams Pegger Relationship Specialty Start Date End Date Niki Ramos MD [address] [place] [address] PCP - General Family Medicine 03/24/18 documented as of this encounter
--- OUTSIDE RECORDS SUMMARY | 2024-10-17 09:23 | XMS_ITS | Encounter Summary ---
Author Organization [employer] Address 75 [facility] 7t [place] [address] Care Team Providers Care Zoning Technician Name Role Phone Niki Ramos MD Primary Care Provide r Encounter Details Date Type Department Care Team ([facility] st Contact Info) Description 05/27/2022 Abstract [facility] ADULT DENTAL [address] [place] [address] Dental, Provider, DDS Social History Tobacco Use [...] on filedocumented in this encounter Care Teams Zoning Technician Relationship Specialty Start Date End Date Niki Ramos MD [address] [place] [address] PCP - General Family Medicine 03/24/18 documented as of this encounter
--- OUTSIDE RECORDS SUMMARY | 2024-10-17 09:23 | XMS_ITS | Encounter Summary ---
Author Organization [employer] Address [address] [facility] [address] [place] [address] Care Team Providers Care Uplands Division Director Name Role Phone Niki Ramos MD Primary Care Provide r Encounter Details Date Type Department Care Team ([facility] st Contact Info) Description 10/17/2024 Orders Only GENERIC EXTERNAL DATA [...] Procedure Name Priority Date/Time Associated Diagnosis Comments CBC WITH AUTO DIFFERENTIAL Routine 10/17/2024 8:18 AM EDT COMPREHENSIVE METABOLIC PANEL Routine 10/17/2024 8:18 AM EDT documented in this encounter Results * (ABNORMAL) Comprehensive Metabolic Panel (10/17/2024 8:18 AM EDT) Sodium 140 135 - 145 mmol/L [facility] Potassium 3.6 3.3 - 5.1 mmol/L [facility] Chloride 107 96 - 108 mmol/L [facility] Carbon Dioxide 26 22 - 29 mmol/L [facility] Anion Gap 11(L) 12 - 20 [facility] Urea Nitrogen (BUN) 15 9 - 16 mg/dL [facility] Creatinine, Serum 0.80 0.5 - 1.4 mg/dL [facility] Creatinine Clr Calc Pharmacy 75.7 [facility] Comment:eGFR (calculated fro m the MDRD study equation) and eCrCl(calculated from the Cockcroft-Gault equation) are based ondifferent parameters and may not yield comparable results.If eCrCl result is absurd, please check patient'sheight/weight. Estimated Glomerular Filt Rate >60 [facility] Comment:Chronic Kidney Disea se: Estimated GFR < 60 mL/min/1.89k9Cxpuhr Kidney Disease: Estimated GFR < 15 mL/min/1.73m2 Glucose 161(H) 60 - 115 mg/dL [facility] Calcium 9.6 8.4 - 10.2 mg/dL [facility] Bilirubin, Total 1.4(H) 0.0 - 1.0 mg/dL [facility] Aspartate Amino Transferase 25 5 - 37 U/L [facility] Alanine Aminotransferase 40 0 - 40 U/L [facility] Total Protein 6.9 6.5 - 8.0 g/dL [facility] Albumin Level 4.4 3.5 - 5.0 g/dL [facility] Alkaline Phosphatase 55 39 - 117 U/L [facility] 10/17/2024 8:18 AM EDT 10/17/2024 8:25 AM EDT us Generic External Data Provider LAB BLOOD ORDERAB LES Final Result [facility] [address] [place] [phone] * (ABNORMAL) CBC auto differential (10/17/2024 8:18 AM EDT) White Blood Count 11.2(H) 4.8 - 10.8 X10*3/uL [facility] Red Blood Count 4.90 4.60 - 5.80 X10*6/uL [facility] Hemoglobin 14.2 14.0 - 18.0 g/dl [facility] Hematocrit 42.1 42.0 - 52.0 % [facility] Mean Corpuscular Volume 85.9 80.0 - 98.0 fL [facility] Mean Corpuscular Hemoglobin 29.0 27.0 - 33.0 pg [facility] Mean Corpuscular HGB Conc 33.7 31.0 - 36.0 g/dl [facility] Red Cell Distribution Width 12.4 11.0 - 16.0 % [facility] Platelet Count 171 160 - 400 X10*3/uL [facility] Mean Platelet Volume 9.8 9.4 - 12.4 fL [facility] Neutrophils Percent Auto 85.6(H) 45 - 73 % [facility] Imm Gran Pct Auto 0.4 0.0 - 0.4 % [facility] Lymphocytes Percent Auto 7.0(L) 20 - 40 % [facility] Monocytes Percent Auto 6.6 2 - 11 % [facility] Eosinophils Percent Auto 0.1 0 - 4 % [facility] Basophils Percent Auto 0.3 0 - 2 % [facility] NRBC Pct Auto 0.0 0.0 - 0.2 /100WBC [facility] Neutrophils Absolute Auto 9.6(H) 2.0 - 8.3 x10*3/uL [facility] Imm Gran Abs Auto 0.05(H) 0.00 - 0.03 X10*3/uL [facility] Lymphocytes Absolute Auto 0.8(L) 1.2 - 4.9 X10*3/uL [facility] Monocytes Absolute Auto 0.7 0.1 - 1.2 X10*3/uL [facility] Eosinophils Absolute Auto 0.0 0.0 - 0.4 X10*3/uL [facility] Basophils Absolute Auto 0.0 0.0 - 0.2 X10*3/uL [facility] NRBC Abs Auto 0.000 0.0 - 0.012 X10*3/uL [facility] 10/17/2024 8:18 AM EDT 10/17/2024 8:25 AM EDT us Generic External Data Provider LAB BLOOD ORDERAB LES Final Result Performing Organization Address City/State/[facility] Co de Phone Number [facility] [address] [place] [address] [phone] documented in this encounter Visit Diagnoses Not on filedocumented in this encounter Additional Health Concerns Assessment Noted Time PHQ-9 Depression Total Score: 0 10/04/19 24 9:42 AM EDT documented as of this encounter Care Teams [employer]plands Division Director Relationship Specialty Start Date End Date Niki Ramos MD [address] [place] [phone] PCP - General Family Medicine 03/24/18 documented as of this encounter
--- OUTSIDE RECORDS SUMMARY | 2024-10-17 09:23 | XMS_ITS | Data Portability ---
Author Organization [employer] [place], [place] in - [facility] Address [address] [place] [phone] Care Team Providers Care Alley Tender Name Role Phone [facility] Referring Provider [phone] Assessment Encounter Date Assessment Date Assessment LastModified by Organization Details LastModified Time 05/20/2022 05/20/2022 I have reviewed and agree with the Assessment and Plan as documented by the Motor Equipment Commanding Officer. I provided real -time medical direction via phone for this encounter, and was available for additional phone based assistance as needed. Patient given the opportunity to ask questions. [email or web address] Not available 05/20/2022 13:49:00 Plan of Treatment Reminders Order Date Submit Date Provider Last Modified By Organization Details Last Modified Time Details Appointments None recorded. Lab urinalysis , dipstick [email or web address] [facility], [address] [place] [address], [phone] 13:53:37 culture, urine 2021 PINDALL [facility] (Centralized Electronic Ordering - All Locations), Patient Can Go To The Location Of Their Choice, [address] 08:07:02 Referral None recorded. Procedures None recorded. Surgeries None recorded. Imaging None recorded. Medication Orders Levaquin 500 mg tablet 2021 [facility], [address] [place] [address], [id number], 14:01:24 Levaquin 500 mg tablet 2021 [email or web address] Not available 13:53:37 Pyridium 100 mg tablet 2021 [facility], [address] [place], [place], [id number], 14:01:24 Patient TargetsNo targets recorded. Patient InstructionsNo instructions recorded. Reason for Referral None Reported. Results Created Date Observation Date Name Description Value Unit Range Abnormal Flag Note LastModifiedBy Organization Detail LastModifiedTime 05/20/2005/21/2022 URINE CULTU RE specimen description CLEAN CATCH (URINE ) Not Available [facility] (Centralized Electronic Ordering - All Locations) Patient Can Go To The Location Of Their Choice, [facility] 05/22/2022 08:06:59 05/20/2005/21/2022 URINE CULTU RE special requests NONE Not Available [facility] (Centralized Electronic Ordering - All Locations) Patient Can Go To The Location Of Their Choice, [facility] 05/22/2022 08:06:59 05/20/2005/22/2022 URINE CULTU RE culture NO GROWTH Not Available [facility] (Centralized Electronic Ordering - All Locations) Patient Can Go To The Location Of Their Choice, [facility] 05/22/2022 08:06:59 05/20/2005/22/2022 URINE CULTU RE report status FINAL 2021 Not Available [facility] (Centralized Electronic Ordering - All Locations) Patient Can Go To The Location Of Their Choice, [facility] 05/22/2022 08:06:59 05/20/2005/20/2022 urina lysis , dipst ick Leukocytes trace Not Available [facility] [address] [place] [address], [phone] 05/20/2022 13:48:42 05/20/20 22 05/20/2022 urina lysis , dipst ick Nitrite negati ve Not Available [facility] [address] [place] [address], [phone] 05/20/2022 13:48:42 05/20/20 22 05/20/2022 urina lysis , dipst ick Urobilinogen neg Not Available [facility] [address] [place] [address], [phone] 05/20/2022 13:48:42 05/20/20 22 05/20/2022 urina lysis , dipst ick Protein trace Not Available [facility] - [facility] imelda [address] [place] [address], [phone] 05/20/2022 13:48:42 05/20/20 22 05/20/2022 urina lysis , dipst ick pH 6 Not Available Main - [facility] [address], [phone] 05/20/2022 13:48:42 05/20/20 22 05/20/2022 urina lysis , dipst ick Blood 50 rbc Not Available [facility] - [facility] [address], [phone] 05/20/2022 13:48:42 05/20/20 22 05/20/2022 urina lysis , dipst ick Specific [place] 1.010 Not Available [facility] [address] [place] [address], [phone] 05/20/2022 13:48:42 05/20/20 22 05/20/2022 urina lysis , dipst ick Ketone neg Not Available Main - [facility] [address], [phone] 05/20/2022 13:48:42 05/20/20 22 05/20/2022 urina lysis , dipst ick Bilirubin neg Not Available Main - [facility] n[facility] [address] [place] [address], [phone] 05/20/2022 13:48:42 05/20/20 22 05/20/2022 urina lysis , dipst ick Glucose neg Not Available Main - [facility] [address], [phone] 05/20/2022 13:48:42 05/20/20 22 05/20/2022 urina lysis , dipst ick Appearance sl cloudy Not Available [facility] [address] [place] [address], [phone] 05/20/2022 13:48:42 05/20/20 22 05/20/2022 urina lysis , dipst ick Color pink Not Available Main - [facility] [address], [phone] 05/20/2022 13:48:42 Result Notes None recorded. Medical Equipment None Reported. Allergies Allergen ID Allergen Name Allergen Category Reaction Reaction Severity Criticality Documentation Date Start Date Code Code System Note Provider Name and Address Organization Details Recorded Time 1313 acetamino phen / oxycodone medicatio n Not available Not available Not available 05/20/2022 22236 3 RxNorm Michelle Sharif MD [address] [facility] [place],[address], [place], [phone], [facility] - Now In Store 2 13:46:59 8126 acetamino phen medicatio n [...] Not Available Not Available No t Available [facility] 10 billion cell-200 mg sprinkle capsule TAKE [...] Details Last Updated DateTime 2 98.3 [degF] 03595.5 36 g 67 /min 96 % 96 % 18 /min 167.64 cm 98.3 [degF] 96 % 96 % 18 /min 67 /min 167.64 cm 10032.5 36 g 123 mm[Hg] 85 mm[Hg] 123 [...] Michelle Sharif MD Main - [facility] [address] [place] [phone] 05/20/2022 13:39:36 05/22/2022 12:40:50 Acute urinary tract infection [id number] N39.0 advised to push fluids- f/u with [...] (MEDICARE REPLACEMENT/ADV ANTAGE - HMO) Jayesh Che [id number] Jayesh Che Notes Date Note Type Note Provider Name and Address Organization Details Recorded Time 05/20/2022 text/html HPI: 72 year old, Norwegian speaking male, reporting dysuria with penile pain [...] to process visit SEGMD: Pt interviewed w/ animal pathologist- only has penile pain inside when he [...] .................... .................... .................... .................... .................... .................... ...... Motor Equipment Commanding Officer Note: Sent to a call for a pt complaining of dysuria and penile pain x 2-3 days. SC8 arrives on scene, pt is alert and oriented. Airway is patent. Pt's primary language is Norwegian; service delivery director line used during visit. Pt complains of [...] clear, concentrated; Urine dip: results uploaded to [employer]. [facility] orders Levofloxacin 500mg PO and urine culture to be sent to [facility]. Pt advised to take Tylenol 500mg q 6hrs prn, increase oral hydration, and follow up with urologist. Levofloxacin administered without incident. [facility] sends script to pt's pharmacy for Levofloxacin and Pyridium. Red flags discussed. Pt has no further questions. .................... .................... .................... .................... .................... .................... .................... . Disposition: Fulfilled Michelle Sharif MD [address] [facility] [place], [place], [phone], [employer] - Now In Store 05/20/2022 14:33:50
--- OUTSIDE RECORDS SUMMARY | 2024-10-17 09:23 | XMS_ITS | Encounter Summary ---
Author Organization [employer] Address [address] [facility] [address] [place] [address] Care Team Providers Care Marina Sales And Service Supervisor Name Role Phone Niki Ramos MD Primary Care Provide r Encounter Details Date Type Department Care Team (Late st Contact Info) Description 03/12/2023 Orders Only [facility] [address] [place] [address] Provider, Yao, Social History Tobacco Use Types [...] as of this encounter Care Teams Marina Sales And Service Supervisor Relationship Specialty Start Date End Date Niki Ramos MD [address] [place] [address] PCP - General Family Medicine 03/24/18 documented as of this encounter
--- NOTE | 2024-10-17 09:31 | ED.GENADULT ---
HPI - General Adult General Chief complaint: Animal Bite Stated complaint: Swelling/discoloration L hand Time Seen by Provider: 10/17/24 09:07 Source: patient, RN notes reviewed and residential roofer helper Mode of arrival: ambulatory Limitations: language barrier History of Present Illness ED Provider: Hannah Pugh PA-C HPI narrative: This is a 74-year-old Macanese-speaking male, with a past medical history of hypertension, COPD, asthma, BPH, who presents emergency department for evaluation of left hand swelling and redness since Wednesday. Patient reports that he noticed a small area of redness in his left hand. He is unsure if he was bit by an insect. He has had increased swelling and pain since he first noticed it. Denies taking any medications at home to treat his current symptoms. No history of similar symptoms in the past. He is right-hand dominant. He denies any fevers or chills. No chest pain, shortness for breath, abdominal pain, nausea, vomiting or diarrhea. No history of IVDA. No other complaints or concerns at this time. MD complaint: Left hand swelling Onset (ago): day(s) Location: left and upper extremity Radiation: non-radiation Severity: moderate Quality: aching Pain Consistency: constant Relieving factors: none Exacerbating factors: none Associated symptoms: denies other symptoms Related Data Home Medications ?Medication ?Instructions ?Recorded ?Confirmed albuterol sulfate 90 mcg/actuation 2 puff PO Q4-6H PRN 08/27/20 02/10/24 aerosol inhaler atorvastatin 40 mg tablet mg PO 08/27/20 02/10/24 zolpidem 5 mg tablet 5 mg PO BEDTIME 08/27/20 02/10/24 bupropion HCl 100 mg tablet,12 hr 200 mg PO DAILY 04/22/21 02/10/24 sustained-release hydroxyzine HCl 25 mg tablet 25 mg PO DAILY PRN 04/22/21 02/10/24 buspirone 10 mg tablet 10 mg PO BID anxiety 12/17/21 02/10/24 escitalopram oxalate 10 mg tablet 10 mg PO DAILY 12/17/21 02/10/24 fluoxetine 20 mg capsule 20 mg PO DAILY 05/12/23 02/10/24 lorazepam 0.5 mg tablet 0.5 mg PO BID PRN 05/12/23 02/10/24 montelukast 10 mg tablet 10 mg PO DAILY 05/12/23 02/10/24 amlodipine 2.5 mg tablet 2.5 mg PO DAILY 02/10/24 02/10/24 Previous Rx's ?Medication ?Instructions ?Recorded bisacodyl 5 mg tablet,delayed 20 mg (4 x 5 mg) PO ONCE 1 day #4 11/02/23 release (Dulcolax (bisacodyl)) tabs polyethylene glycol 3350 17 238 g PO ONCE #238 grams 11/02/23 gram/dose oral powder (Miralax) ipratropium 0.5 mg-albuterol 3 mg 3 ml inhalation Q4-6H PRN wheezing 05/05/24 (2.5 mg base)/3 mL nebulization #180 mL soln terazosin 10 mg capsule 10 mg PO BEDTIME 90 days #90 caps 05/22/24 sulfamethoxazole 800 1 tab PO BID 5 days #10 tabs 05/30/24 mg-trimethoprim 160 mg tablet (Bactrim DS) finasteride 5 mg tablet 5 mg PO DAILY 90 days #90 tabs 06/09/24 budesonide 160 mcg-glycopyr 9 2 inh inhalation BID #1 ea 06/26/24 mcg-formot 4.8 mcg/actuation HFA inhaler (Breztri Aerosphere) Allergies Allergy/AdvReac Type Severity Reaction Status Date / Time oxycodone [From PERCOCET] Allergy Unknown HIVES Verified 10/17/24 08:01 Review of Systems Review of Systems: Yes all other systems are reviewed and are negative Constitutional: Constitutional: Reports as per [facility] Past Medical History Medical History Vitamin D deficiency Hematuria PVD (peripheral vascular disease) Esophageal dysphagia BPH loc w urin obs/LUTS Asthma HTN (hypertension) Surgical History Hx of colonoscopy History of surgery Hx of prostatectomy Family History Family History Father No problems noted. Mother No problems noted. Social History Social History Alcohol intake: former Patient Tobacco Use Status: Former Tobacco user Years Smoked: started in his 20's, quit 13 years ago Advance Directives: No Advance Directives Information Provided: Yes Physical Exam ED Vital Signs: Vital Signs - 24 hr 10/17/24 07:55 10/17/24 09:48 10/17/24 10:08 Temperature 98.1 F 99.9 F Pulse Rate 119 H 85 85 Respiratory Rate 18 14 Blood Pressure 112/70 98/49 L 116/56 L Pulse Oximetry 98 96 Oxygen Delivery Method Room Air Room Air 10/17/24 10:08 10/17/24 10:08 10/17/24 10:43 Temperature 99.7 F Pulse Rate 103 H 110 H 89 Respiratory Rate 18 Blood Pressure 112/65 106/65 115/68 Pulse Oximetry 95 Oxygen Delivery Method Room Air 10/17/24 11:40 10/17/24 11:59 Temperature 98.1 F 98.4 F Pulse Rate 75 74 Respiratory Rate 14 16 Blood Pressure 120/75 114/63 Pulse Oximetry 96 96 Oxygen Delivery Method Room Air Room Air BMI result Body Mass Index 23.8 Const General: cooperative, comfortable and no acute distress Orientation/consciousness: patient oriented x3 Limitations: no limitations HENMT Head: Yes normal to inspection, Yes normocephalic and Yes atraumatic Ears: hearing grossly normal bilaterally General nose exam: Normal external nose present Face and sinus: Yes normal facial exam Mouth: Normal oral and palatal mucosa present, oropharynx normal and moist mucous membranes Throat: Yes posterior oropharynx normal Eyes General: appearance normal, both eyes and all related structures Eyelids: Yes eyelids normal Conjunctivae: conjunctivae normal Sclerae: sclerae normal Pupils: Equal, round and reactive pupils present EOM: EOMs intact bilaterally Neck Neck: Yes normal visual inspection, Yes full ROM and Yes no lymphadenopathy Lymphatic: no lymphadenopathy noted Chest Chest palpation & inspection: normal inspection of the chest Resp Effort & Inspection: normal respiratory effort and able to speak in complete sentences Auscultation: clear to auscultation bilaterally, no crackles, no rales, no rhonchi and no wheezes Cardio Rate: regular rate Rhythm: regular rhythm Heart sounds: S1 normal heart sound present and S2 normal heart sound present GI Inspection: Yes normal to inspection Skin General skin exam: no rashes or lesions noted Trauma: no lacerations or abrasions Wounds: no wounds Neuro General: patient oriented x3 and moves all extremities Cranial nerves: Yes Equal, round and reactive pupils present Extrem Other: Left hand with diffuse edema, erythema, and warmth to the touch. Patient does have an area redness noted along the PIP of the left 1st digit. Deep decreased range of motion of the left 1st digit secondary to pain and inflammation. Decreased range of motion of the left wrist. Faint erythema extending into the volar aspect of the distal wrist. Strong radial pulse. capillary refill less than 3 seconds. General: Yes normal to inspection Right upper extremity: normal to inspection Right lower extremity: normal to inspection Left lower extremity: normal to inspection Course Reevaluation(s) Reevaluation #1: Patient's vitals within normal limits. Labs returned, he was slight leukocytosis at 11.2, ESR 8, CRP 4.3, chemistry with slight hyperglycemia at 161, T bili at 1.4, and lactic acid 1.5. X-ray of the left hand revealing dorsal soft tissue swelling, no acute bony abnormality seen. Blood pressure improved, he was normotensive at 120/75, he is afebrile, nontoxic-appearing. I had my attending physician, Dr. Cantor, assess patient, given profound erythema, edema, patient would benefit from IV antibiotics with close monitoring. Patient is in agreement. We will discuss with hospitalist Time: 12:27 Medications Administered Discontinued Medications Generic Name Dose Route Start Last Admin Trade Name Freq PRN Reason Stop Dose Admin Acetaminophen 975 mg 10/17/24 09:39 10/17/24 10:04 Acetaminophen 325 Mg Tablet PO 10/17/24 09:40 975 mg ONCE ONE Administration Sodium Chloride 2,067 mls @ 2,067 mls/hr 10/17/24 09:47 10/17/24 10:04 Ns 30 ml/kg infuse over 1 hr (2067 ml) 10/17/24 10:46 2,067 mls/hr IV Administration .Q1H STA Vancomycin HCl 1,000 mg/ 535 mls @ 267.5 mls/hr 10/17/24 09:47 10/17/24 10:39 Vancomycin HCl 750 mg/ Sodium IV 10/17/24 11:46 267.5 mls/hr Chloride ONCE ONE Administration Piperacillin Sod/Tazobactam 50 mls @ 100 mls/hr 10/17/24 09:47 10/17/24 10:34 Sod 3.375 gm/ Sodium Chloride IV 10/17/24 10:16 Infused ONCE ONE Infusion Medical Decision Making Medical Decision Making [facility] Narrative: This is a 74-year-old male, with a history of hypertension, COPD, asthma, and BPH, who presents emergency department for evaluation of left hand redness, swelling, and pain for the last 4 days. Patient denies any recent trauma or injury to his hand. He was unsure if he was stung or bit by any type of insect. He states that since he 1st noticed it, he has had increased pain and swelling. I evaluated patient at 9:45 a.m. and he was found to be hypotensive at 98/48, heart rate 85, he is afebrile. Hand appears to be cellulitic with erythema, and edema and motion. Given this finding, sepsis alert was initiated. IV fluid bolus, and IV vanco and Zosyn was administered, also given Tylenol. Plan: Labs, EKG - initially ordered due to tachycardia upon arrival, IV fluids, IV antibiotics, and x-ray Differential Diagnosis Differential Diagnoses: The differential diagnosis associated with the presentation includes Cellulitis, tenosynovitis, abscess, contact dermatitis Admission/Observation Consideration of admission/observation: Escalation of care including admission/observation considered Lab Data [facility] Lab Attestation statement: I reviewed the patient's lab results. See course comment 10/17/24 08:18 10/17/24 08:18 Labs: Lab Results 10/17/24 10/17/24 Range/Units 08:18 10:00 WBC 11.2 H (4.8-10.8) X10*3/uL RBC 4.90 (4.60-5.80) X10*6/uL Hgb 14.2 (14.0-18.0) g/dl Hct 42.1 (42.0-52.0) % MCV 85.9 (80.0-98.0) fL MCH 29.0 (27.0-33.0) pg MCHC 33.7 (31.0-36.0) g/dl RDW 12.4 (11.0-16.0) % Plt Count 171 (160-400) X10*3/uL MPV 9.8 (9.4-12.4) fL Immature Gran % (Auto) 0.4 (0.0-0.4) % Neut % (Auto) 85.6 H (45-73) % Lymph % (Auto) 7.0 L (20-40) % [place] % (Auto) 6.6 (2-11) % Eos % (Auto) 0.1 (0-4) % Baso % (Auto) 0.3 (0-2) % Lymph # (Auto) 0.8 L (1.2-4.9) X10*3/uL [place] # (Auto) 0.7 (0.1-1.2) X10*3/uL Eos # (Auto) 0.0 (0.0-0.4) X10*3/uL Baso # (Auto) 0.0 (0.0-0.2) X10*3/uL Abs Immat Gran (auto) 0.05 H (0.00-0.03) X10*3/uL Absolute Neuts (auto) 9.6 H (2.0-8.3) x10*3/uL Absolute Nucleated RBC 0.000 (0.0-0.012) X10*3/uL Nucleated RBC % (auto) 0.0 (0.0-0.2) /100WBC ESR 8 (0-15) MM/HR Sodium 140 (135-145) mmol/L Potassium 3.6 (3.3-5.1) mmol/L Chloride 107 (96-108) mmol/L Carbon Dioxide 26 (22-29) mmol/L Anion Gap 11 L (12-20) BUN 15 (9-16) mg/dL Creatinine 0.80 (0.5-1.4) mg/dL Estim Creat Clear Calc 75.7 Estimated GFR > 60 Random Glucose 161 H (60-115) mg/dL Lactic Acid 1.5 (0.5-2.0) mmol/L Calcium 9.6 D (8.4-10.2) mg/dL Total Bilirubin 1.4 H (0.0-1.0) mg/dL AST 25 (5-37) U/L ALT 40 (0-40) U/L Alkaline Phosphatase 55 (39-117) U/L C-Reactive Protein 4.30 H (< or = 0.50) mg/dL Total Protein 6.9 (6.5-8.0) g/dL Albumin 4.4 (3.5-5.0) g/dL Independent Interpretation I performed an independent interpretation of an: EKG Interpretation: EKG normal sinus rhythm at a ventricular rate of 92 beats per minute, QT QTC 346/427, no ST elevation or depression. Radiology Impression Discussion of test interpretation with radiology: I have reviewed the radiologist's reading. Radiologist Impression: TECHNIQUE: PA, lateral, and oblique views of the left hand. FINDINGS: No fracture, dislocation, or suspicious bone lesion. Normal bone mineralization. No region of permeative bone change is identified. Normal alignment. Mild degenerative changes throughout the DIP joints of the digits, involving the first MCP joint, and involving the CMC joint and STT joints of the wrist. Diffuse dorsal soft tissue swelling. No soft tissue emphysema. No radiopaque foreign body seen. XR/XR hand LT min 3V IMPRESSION: 1. No acute bony abnormalities. 2. Dorsal soft tissue swelling. Electronically signed by: Mikey Roger MD 10/17/2024 10:36 AM EDT Dictated By: Mikey Roger MD Critical Care Time Critical Care Time Critical Care Time: Yes Total Critical Care Time: 35 Attestation: I have personally provided critical care time exclusive of time spent on separately billable procedures. Time includes review of lab data, radiology results, discussion with consultants, and monitoring for potential decompensation. Intervention performed as documented. Discharge Plan Discharge Clinical Impression: Cellulitis of hand Prescriptions: No Action terazosin 10 mg capsule 10 mg PO BEDTIME 90 Days Qty: 90 3RF sulfamethoxazole-trimethoprim [Bactrim DS] 800-160 mg tablet 1 tab PO BID 5 Days Qty: 10 0RF Breztri Aerosphere 160-9-4.8 mcg/actuation HFA aerosol inhaler 2 inh inhalation BID Qty: 1 6RF zolpidem 5 mg tablet 5 mg PO BEDTIME albuterol sulfate 90 mcg/actuation HFA aerosol inhaler 2 puff PO Q4-6H PRN atorvastatin 40 mg tablet PO hydroxyzine HCl 25 mg tablet 25 mg PO DAILY PRN bupropion HCl 100 mg tablet sustained-release 12 hr 200 mg PO DAILY escitalopram oxalate 10 mg tablet 10 mg PO DAILY buspirone 10 mg tablet 10 mg PO BID bisacodyl [Dulcolax (bisacodyl)] 5 mg tablet,delayed release (DR/EC) 20 mg PO ONCE 1 Days Qty: 4 0RF Rx Instructions: take 4 tabs at noon the day before your colonoscopy polyethylene glycol 3350 [Miralax] 17 gram/dose powder 238 g PO ONCE Qty: 238 0RF Rx Instructions: As directed by gastroenterology department at [facility] finasteride 5 mg tablet 5 mg PO DAILY 90 Days Qty: 90 1RF fluoxetine 20 mg capsule 20 mg PO DAILY lorazepam 0.5 mg tablet 0.5 mg PO BID PRN montelukast 10 mg tablet 10 mg PO DAILY amlodipine 2.5 mg tablet 2.5 mg PO DAILY ipratropium-albuterol 0.5 mg-3 mg(2.5 mg base)/3 mL solution for nebulization 3 ml inhalation Q4-6H PRN (Reason: wheezing) Qty: 180 6RF Print Language: Macanese
[2024-10-17] MEDS: SODIUM CHLORIDE 2067 ML IV (10:04)
[2024-10-17] MEDS: Piperacillin Sodium/Tazobactam 3.375 GM in 0.9 % Sodium Chloride 50 ML IV (10:04)
[2024-10-17] MEDS: Acetaminophen 325 MG TABLET 975 MG PO (10:04)
[2024-10-17 10:34] LABS: Lactic Acid 1.5 mmol/L (0.5-2.0)
[2024-10-17] MEDS: vancomycin HCL 1,000 MG, vancomycin HCL 750 MG in 0.9 % Sodium Chloride 500 ML 267.5 MG IV (10:39)
[2024-10-17 10:40] LABS: Erythrocyte Sedimentation Rate 8 MM/HR (0-15)
--- NOTE | 2024-10-17 12:56 | PM.IMHP ---
History of Present Illness Date of Service: 10/17/24 Chief Complaint: left hand pain and swelling 74M PMH COPD/moderate persistent asthma, hypertension, hyperlipidemia, BPH, mood disorder presented with left hand swelling and erythema. Patient states symptoms began 3 days prior to presentation with what he believes was bug on dorsal surface between 1st and 2nd finger. He tried topical antibiotics, but over the next few days had increased swelling, erythema, pain. Denies fever or chills. Sensation remains intact. No obvious drainage. Review of Systems Review of Systems: Yes all other systems are reviewed and are negative [facility] Medical History Vitamin D deficiency Hematuria PVD (peripheral vascular disease) Esophageal dysphagia BPH loc w urin obs/LUTS Asthma HTN (hypertension) Family History Father No problems noted. Mother No problems noted. Surgical History Hx of colonoscopy History of surgery Hx of prostatectomy Social History Alcohol intake: former Patient Tobacco Use Status: Former Tobacco user Years Smoked: started in his 20's, quit 13 years ago Advance Directives: No Advance Directives Information Provided: Yes Meds Allergies Allergy/AdvReac Type Severity Reaction Status Date / Time oxycodone [From PERCOCET] Allergy Unknown HIVES Verified 10/17/24 08:01 Active Medications: Current Medications Enoxaparin Sodium (Enoxaparin Sodium 40 Mg/0.4 Ml Syringe) 40 mg SUBCUT Q24H [facility] Vancomycin HCl 1,000 mg/ (Sodium Chloride) 270 mls @ 270 mls/hr IV Q12H [facility] Pharmacy Consult (Consult Rx Vancomycin Dosing) 1 each MISCELLANE DAILY PRN PRN Reason: Consult order Home Medications ?Medication ?Instructions ?Recorded ?Confirmed ?Last Taken ?Type albuterol sulfate 90 mcg/actuation 2 puff PO Q4-6H PRN 08/27/20 02/10/24 Unknown History aerosol inhaler atorvastatin 40 mg tablet mg PO 08/27/20 02/10/24 Unknown History zolpidem 5 mg tablet 5 mg PO BEDTIME 08/27/20 02/10/24 Unknown History bupropion HCl 100 mg tablet,12 hr 200 mg PO DAILY 04/22/21 02/10/24 Unknown History sustained-release hydroxyzine HCl 25 mg tablet 25 mg PO DAILY PRN 04/22/21 02/10/24 Unknown History buspirone 10 mg tablet 10 mg PO BID anxiety 12/17/21 02/10/24 Unknown History escitalopram oxalate 10 mg tablet 10 mg PO DAILY 12/17/21 02/10/24 Unknown History fluoxetine 20 mg capsule 20 mg PO DAILY 05/12/23 02/10/24 Unknown History lorazepam 0.5 mg tablet 0.5 mg PO BID PRN 05/12/23 02/10/24 Unknown History montelukast 10 mg tablet 10 mg PO DAILY 05/12/23 02/10/24 Unknown History amlodipine 2.5 mg tablet 2.5 mg PO DAILY 02/10/24 02/10/24 Unknown History cholecalciferol (vitamin D3) 25 25 mcg PO DAILY 10/17/24 Unknown History mcg (1,000 unit) tablet hydrochlorothiazide 12.5 mg tablet 12.5 mg PO DAILY 10/17/24 Unknown History omeprazole 40 mg capsule,delayed 40 mg PO DAILY@0630 10/17/24 Unknown History release Physical Exam Vital Signs and Narrative: Vital Signs: Last Vital Signs Temp 98.4 F 10/17/24 11:59 Pulse 74 10/17/24 11:59 Resp 16 10/17/24 11:59 BP 114/63 10/17/24 11:59 Pulse Ox 96 10/17/24 11:59 O2 Del Method Room Air 10/17/24 11:59 BMI result Body Mass Index 23.8 General: AO X 3, no acute distress Resp: CTA bilateral, no accessory muscles used CVS: S1,S2,RRR GI: soft, non tender, non distended Neuro: motor and sensation grossly intact, mild limitation of ROM of left hand, alert Psych: appropriate affect, appropriate insight Results Labs 10/17/24 08:18 10/17/24 08:18 Labs: Laboratory Results - last 24 hr 10/17/24 10/17/24 08:18 10:00 MCV 85.9 MCH 29.0 MCHC 33.7 RDW 12.4 Plt Count 171 MPV 9.8 Immature Gran % (Auto) 0.4 Neut % (Auto) 85.6 H Lymph % (Auto) 7.0 L Power % (Auto) 6.6 Eos % (Auto) 0.1 Baso % (Auto) 0.3 Lymph # (Auto) 0.8 L Power # (Auto) 0.7 Eos # (Auto) 0.0 Baso # (Auto) 0.0 Abs Immat Gran (auto) 0.05 H Absolute Neuts (auto) 9.6 H Absolute Nucleated RBC 0.000 Nucleated RBC % (auto) 0.0 ESR 8 Anion Gap 11 L Estim Creat Clear Calc 75.7 Estimated GFR > 60 Random Glucose 161 H Lactic Acid 1.5 Calcium 9.6 D Total Bilirubin 1.4 H AST 25 ALT 40 Alkaline Phosphatase 55 C-Reactive Protein 4.30 H Total Protein 6.9 Albumin 4.4 Imaging Radiologist's Impressions: Impressions Hand X-Ray 10/17/24 09:39 IMPRESSION: 1. No acute bony abnormalities. 2. Dorsal soft tissue swelling. Electronically signed by: Mikey Roger MD 10/17/2024 10:36 AM EDT Assessment and Plan (1) Cellulitis of hand: Status: Acute Plan 74M PMH COPD/moderate persistent asthma, hypertension, hyperlipidemia, BPH, mood disorder presented with left hand swelling and erythema Bug bite complicated by left hand cellulitis IV vancomycin Follow up culture If worsens may need hand surgery eval COPD/moderate persistent asthma Continue Singulair, inhalers BPH Continue Proscar and alpha gabriel Hypertension Continue amlodipine, HCTZ Hyperlipidemia Continue statin dvt prophylaxis- lovenox full code patient with cellulitis in high risk area (hand) requiring iv abx and close observation, expected to require atleast 2 midnights inpatient Quality Stroke Does the patient have a stroke diagnosis?: No VTE Prior VTE?: No VTE Risk Level:: Medical - moderate - high VTE Device Contraindication: Treatment Not Indicated VTE Drug Contraindication: N/A - Med Ordered
--- NOTE | 2024-10-17 13:24 | PHA.PROG ---
Admission Date/Time: October 17, 2024 12:56 Indication: skin + skin structure Weight in k.9 kg Adjusted body weight in Kg: Bim body weight in Kg: Obesity Dosing Indication % IBW: BMI 23.8 Serum Creatinine - Last 168 Hours 10/17/24 08:18 Creatinine 0.80 Estimated CrCl and GFR - Last 168 Hours 10/17/24 08:18 Estim Creat Clear Calc 75.7 Estimated GFR > 60 Vancomycin Loading Dose: 1750mg X1 Current Vancomycin Dosing Regimen: 750mg Q12H Vancomycin Monitoring using AUC goal of 400 - 600 range with trough as surrogate marker: 463 Date and Time for next Vancomycin Level to be drawn: 10/18 @1000 Pharmacist Comments on Vancomycin Plan: Pt's renal function appears stable, predicted trough 14.9. To be adjusted and changed based on trough tomorrow 10/18 and renal function stability. Vancomycin dosing will take advantage of [employer] as a clinical decision support tool that uses Bayesian modeling to calculate individual patient's pharmacokinetic parameters and forecast the patient's drug concentration time course with the target goal AUC 24 range of 400 - 600 mg/L/hr.
[2024-10-17] MEDS: Diphth,Pertus(ACell),Tet Adult 0.5 ML SYRINGE IM (14:42)
[2024-10-17] MEDS: 0.9 % Sodium Chloride Flush 3 ML SYRINGE IVFLUSH ×2 (14:43→22:23)
--- NOTE | 2024-10-17 17:24 | PHA.MEDREC ---
Addendum entered by Adolfo Kraus, [facility] 10/17/24 17:42: med rec reviewed Original Note: Pharmacy Consult ? Medication Reconciliation Pharmacy has completed the medication reconciliation. Spoke to patient through surgery aid service ([place]) to confirm med list. Patient was a poor historian. He could only confirm a few meds. Called [facility] to confirm med list. [facility] states patient was discontinued off of Amlodipine 5 mg daily, Bupropion Hcl 100 mg, Fluoxetine 20 mg. [facility] confirmed Buspirone 10 mg, however he is late filling. Last fill date was 08/24/24 for 30 days, Escitalopram 10 mg , last fill date 08/24/24 for 30 days, HCTZ 25 mg, last filled 09/01/24 for 30 days, Lorazepam 0.5 mg , last filled 08/24/24 for 30 days, an Zolpidem 5 mg , last filled 08/24/24 for 30 days.. Patient states he last took his medications today.
[2024-10-17] MEDS: HYDROmorphone HCl 2 MG TABLET 1 MG PO ×2 (18:22→22:30)
[2024-10-17] MEDS: busPIRone HCl 10 MG TABLET PO (20:46)
[2024-10-17] MEDS: Tamsulosin HCL 0.4 MG CAPSULE PO (20:46)
[2024-10-17] MEDS: Atorvastatin Calcium 40 MG TABLET PO (20:46)
[2024-10-17] MEDS: Montelukast Sodium 10 MG TABLET PO (20:46)
[2024-10-17] MEDS: vancomycin HCL 750 MG in 0.9 % Sodium Chloride 250 ML 265 MG IV (22:24)
[2024-10-18] MEDS: Omeprazole 40 MG CAPSULE.DR PO (05:45)
[2024-10-18 06:02] LABS: Hematocrit 39.6 % (42.0-52.0); Hemoglobin 12.9 g/dl (14.0-18.0); Mean Corpuscular HGB Conc 32.6 g/dl (31.0-36.0); Mean Corpuscular Hemoglobin 28.7 pg (27.0-33.0); Mean Corpuscular Volume 88.2 fL (80.0-98.0); Mean Platelet Volume 10.1 fL (9.4-12.4); Platelet Count 149 X10*3/uL (160-400); Red Blood Count 4.49 X10*6/uL (4.60-5.80); Red Cell Distribution Width 12.6 % (11.0-16.0); White Blood Count 8.7 X10*3/uL (4.8-10.8)
[2024-10-18 06:12] LABS: Anion Gap 10 (12-20); Blood Urea Nitrogen 15 mg/dL (9-16); Calcium 8.8 mg/dL (8.4-10.2); Carbon Dioxide 25 mmol/L (22-29); Chloride 108 mmol/L (96-108); Creatinine Clr Calc Pharmacy 89.1; Estimated Glomerular Filt Rate > 60; Glucose Random 117 mg/dL (60-115); Potassium 4.1 mmol/L (3.3-5.1); Sodium 139 mmol/L (135-145)
[2024-10-18 07:44] VITALS: BP 124/80; PULSE 83; RESP 14; TEMP 36.7; O2SAT 92
[2024-10-18] MEDS: Cholecalciferol (Vitamin D3) 25 MCG TABLET PO (08:14)
[2024-10-18] MEDS: Finasteride 5 MG TABLET PO (08:14)
[2024-10-18] MEDS: busPIRone HCl 10 MG TABLET PO ×2 (08:14→20:20)
[2024-10-18] MEDS: Escitalopram Oxalate 10 MG TABLET PO (08:14)
[2024-10-18] MEDS: hydroCHLOROthiazide 12.5 MG TABLET PO (08:14)
[2024-10-18] MEDS: amLODIPine Besylate 2.5 MG TABLET PO (08:14)
[2024-10-18] MEDS: Acetaminophen 325 MG TABLET 650 MG PO (08:15)
[2024-10-18] MEDS: 0.9 % Sodium Chloride Flush 3 ML SYRINGE IVFLUSH ×2 (08:17→14:22)
[2024-10-18 09:36] LABS: Vancomycin Random 6.6 mcg/mL (15-20)
--- NOTE | 2024-10-18 09:43 | HE.PHANOTE ---
RE: VANCO DOSING Trough came back as 6.6 mg/L and renal function is stable. Dose is increased to 1250 mg q12h, next trough is scheduled for 10/19/24@0900.
[2024-10-18] MEDS: vancomycin HCL 1,250 MG in 0.9 % Sodium Chloride 250 ML 166.67 MG IV ×2 (10:23→22:45)
[2024-10-18] MEDS: Enoxaparin Sodium 40 MG/0.4 ML SYRINGE SUBCUT (10:24)
[2024-10-18] MEDS: HYDROmorphone HCl 2 MG TABLET 1 MG PO ×2 (10:30→19:18)
--- NOTE | 2024-10-18 13:00 | MHC.CM.PN ---
PT HAS [facility] ,ADULT DAY CARE PT WILL NEED [facility] WHEN DCD DC PLAN HOME W/SERVICES
--- NOTE | 2024-10-18 13:19 | HO.WOUND ---
Wound Consult: Initial 74yr old?male admitted to [facility] on 10/17/24 - See progress notes and H&P for detailed history.? Wound consult placed for Left Hand.? Patient agreeable to assessment and photo documentation.? Left Hand Etiology: Insect bite ?? Wound Bed: red maroon intact tissue with swelling and tenderness Drainage / Odor: None Christina wound: swelling and redness and Warmth noted Pain: pain noted Goals of Treatment: ? Elevation with pillows - tissue remains intact no topical recommendations needed at this time. Defer to provider for systemic treatment. Re-consult wound care Nurse for wound deterioration or wound changes.
--- NOTE | 2024-10-18 13:26 | PM.CNOR ---
History of Present Illness HPI Consult date: 10/18/24 Chief complaint: Cellulitis Narrative: 74-year-old male admitted to the hospital for cellulitis of left hand, primarily in the dorsal 1st webspace and over the 1st dorsal compartment No known injury or wound Patient reports that it was significantly tender to palpation, but he has minimal discomfort with range of motion of the left hand and thumb Patient reports slight improvement with IV antibiotics Resting comfortably in bed Pain fairly well managed No other acute complaints or concerns at this time Review of Systems Review of Systems: Yes all other systems are reviewed and are negative PMFSH Past Medical History Medical History Vitamin D deficiency Hematuria PVD (peripheral vascular disease) Esophageal dysphagia BPH loc w urin obs/LUTS Asthma HTN (hypertension) Family History Family History Father No problems noted. Mother No problems noted. Surgical History Surgical History Hx of colonoscopy History of surgery Hx of prostatectomy Social History Social History Housing: Apartment Do you presently have visiting nurse or other home services: No Alcohol intake: former Patient Tobacco Use Status: Former Tobacco user Years Smoked: started in his 20's, quit 13 years ago e-Cigarette/Vaping Use: Former Use Use of substances other than those prescribed or required for medical reasons: No Currently Displaying Signs/Symptoms of Drug Intoxication Withdrawal: No Have you been hit, kicked, punched, or otherwise hurt by someone within the past year? If so, by whom?: No Do you feel safe in your current relationship?: No Is there a partner from a previous relationship who is making you feel unsafe now?: No Are you made to feel afraid or neglected: No Gnosticist Healthcare Practices: jewish Advance Directives: No Advance Directives Information Provided: Yes Do you have a plan to hurt others: No Plan Recently lost weight without trying: No Nutrition Risks: No Nutritional Risk service: No Meds Allergies Allergy/AdvReac Type Severity Reaction Status Date / Time oxycodone [From PERCOCET] Allergy Unknown HIVES Verified 10/17/24 08:01 Active Medications: Current Medications Acetaminophen (Acetaminophen 325 Mg Tablet) 650 mg PO Q6H PRN PRN Reason: Pain, Mild 1-3,fever,headache Last Admin: 10/18/24 08:15 Dose: 650 mg Albuterol/Ipratropium (Albuterol/Iprat 2.5/0.5mg 3 Ml Ampul.Neb) 3 ml INHALE RQ4H WHILE AWAKE PRN PRN Reason: sob Amlodipine Besylate (Amlodipine Besylate 2.5 Mg Tablet) 2.5 mg PO DAILY [facility]; Protocol Last Admin: 10/18/24 08:14 Dose: 2.5 mg Atorvastatin Calcium (Atorvastatin Calcium 40 Mg Tablet) 40 mg PO BEDTIME ELISA Last Admin: 10/17/24 20:46 Dose: 40 mg Buspirone HCl (Buspirone Hcl 10 Mg Tablet) 10 mg PO BID [facility] Last Admin: 10/18/24 08:14 Dose: 10 mg Calcium Carbonate (Calcium Carbonate 750 Mg Tab.Chew) 750 mg PO Q4H PRN PRN Reason: Heartburn Enoxaparin Sodium (Enoxaparin Sodium 40 Mg/0.4 Ml Syringe) 40 mg SUBCUT Q24H [facility] Last Admin: 10/18/24 10:24 Dose: 40 mg Escitalopram Oxalate (Escitalopram Oxalate 10 Mg Tablet) 10 mg PO DAILY [facility] Last Admin: 10/18/24 08:14 Dose: 10 mg Finasteride (Finasteride 5 Mg Tablet) 5 mg PO DAILY [facility] Last Admin: 10/18/24 08:14 Dose: 5 mg Hydrochlorothiazide (Hydrochlorothiazide 12.5 Mg Tablet) 12.5 mg PO DAILY [facility]; Protocol Last Admin: 10/18/24 08:14 Dose: 12.5 mg Hydromorphone HCl (Hydromorphone Hcl 2 Mg Tablet) 1 mg PO Q4H PRN PRN Reason: Pain, Severe (Pain Scale 7-10) Last Admin: 10/18/24 10:30 Dose: 1 mg Vancomycin HCl 1,250 mg/ (Sodium Chloride) 250 mls @ 166.667 mls/hr IV Q12H [facility] Last Infusion: 10/18/24 12:56 Dose: Infused Lorazepam (Lorazepam 0.5 Mg Tablet) 0.5 mg PO BID PRN PRN Reason: Anxiety Magnesium Hydroxide (Milk Of Magnesia 30 Ml Oral.Susp) 30 ml PO DAILY PRN PRN Reason: Constipation Melatonin (Melatonin 3 Mg Tablet) 6 mg PO BEDTIME PRN PRN Reason: Insomnia Montelukast Sodium (Montelukast Sodium 10 Mg Tablet) 10 mg PO BEDTIME [facility] Last Admin: 10/17/24 20:46 Dose: 10 mg Omeprazole (Omeprazole 40 Mg Capsule.Dr) 40 mg PO DAILY@0630 [facility] Last Admin: 10/18/24 05:45 Dose: 40 mg Pharmacy Consult (Consult Rx Vancomycin Dosing) 1 each MISCELLANE DAILY PRN PRN Reason: Consult order Sodium Chloride (0.9 % Sodium Chloride Flush 3 Ml Syringe) 3 ml IVFLUSH QSHIFT [facility] Last Admin: 10/18/24 08:17 Dose: 3 ml Tamsulosin HCl (Tamsulosin Hcl 0.4 Mg Capsule) 0.4 mg PO BEDTIME [facility] Last Admin: 10/17/24 20:46 Dose: 0.4 mg Vitamin D (Cholecalciferol (Vitamin D3) 25 Mcg Tablet) 25 mcg PO DAILY [facility] Last Admin: 10/18/24 08:14 Dose: 25 mcg Home Medications ?Medication ?Instructions ?Recorded ?Confirmed ?Last Taken ?Type albuterol sulfate 90 mcg/actuation 2 puff PO Q4-6H PRN Shortness Of 08/27/20 10/17/24 Unknown History aerosol inhaler Breath Or Wheezing atorvastatin 40 mg tablet 40 mg PO BEDTIME 08/27/20 10/17/24 10/16/24 History zolpidem 5 mg tablet 5 mg PO BEDTIME PRN Insomnia 08/27/20 10/17/24 10/16/24 History hydroxyzine HCl 25 mg tablet 25 mg PO DAILY PRN Anxiety 04/22/21 10/17/24 Unknown History buspirone 10 mg tablet 10 mg PO BID anxiety 12/17/21 10/17/24 10/17/24 History escitalopram oxalate 10 mg tablet 10 mg PO DAILY 12/17/21 10/17/24 10/17/24 History lorazepam 0.5 mg tablet 0.5 mg PO BID PRN Anxiety 05/12/23 10/17/24 Unknown History montelukast 10 mg tablet 10 mg PO BEDTIME 05/12/23 10/17/24 10/17/24 History budesonide 160 mcg-glycopyr 9 2 inh inhalation BID 10/17/24 10/17/2425 History mcg-formot 4.8 mcg/actuation HFA inhaler ([email or web address]) cholecalciferol (vitamin D3) 25 25 mcg PO DAILY 10/17/24 10/17/24 10/17/24 History mcg (1,000 unit) tablet hydrochlorothiazide 12.5 mg tablet 12.5 mg PO DAILY 10/17/24 10/17/24 10/17/24 History omeprazole 40 mg capsule,delayed 40 mg PO DAILY@0630 10/17/24 10/17/24 10/17/24 History release Physical Exam Vital Signs: Vital Signs: Last Vital Signs Temp 98.1 F 10/18/24 07:44 Pulse 83 10/18/24 07:44 Resp 14 10/18/24 07:44 BP 124/80 10/18/24 07:44 Pulse Ox 92 10/18/24 07:44 O2 Del Method Room Air 10/18/24 07:44 BMI result Body Mass Index 23.8 Extrem: Other: Patient is alert, oriented, and in no acute distress. Neuro: Normal sensation of the tips of all digits of the right hand at this time Vascular: Cap refill brisk Pain: Significant tenderness to palpation noted over the dorsal 1st webspace moving down into the 1st dorsal compartment area of the left hand and wrist Minimal discomfort with both passive and active range of motion of the left hand and wrist ROM: Patient was able to make a closed fist and extend all digits of the left hand fully and with minimal discomfort, particularly with range of motion of the left thumb Patient was able to flex and extend the left wrist to approximately 40 degrees with each movement with minimal discomfort Skin: No lacerations or abrasions. General: Significant, very dark erythema noted in the area of the left 1st webspace, dorsal, and the 1st dorsal compartment Edema noted, [place]/pitting in nature, no area of fluctuance noted Psych: Appears grossly normal Affect normal Attitude cooperative Results Labs 10/18/24 05:18 10/18/24 05:18 Labs: Abnormal lab results 10/18/24 10/18/24 Range/Units 05:18 09:06 RBC 4.49 L (4.60-5.80) X10*6/uL Hgb 12.9 L (14.0-18.0) g/dl Hct 39.6 L (42.0-52.0) % Plt Count 149 L (160-400) X10*3/uL Anion Gap 10 L (12-20) Random Glucose 117 H (60-115) mg/dL Random Vancomycin 6.6 L (15-20) mcg/mL H & H 10/17/24 10/18/24 Range/Units 08:18 05:18 Hgb 14.2 12.9 L (14.0-18.0) g/dl Hct 42.1 39.6 L (42.0-52.0) % All other labs normal. Assessment and Plan (1) Cellulitis of hand: Status: Acute Plan 1. Cellulitis of the left hand No evidence of abscess at this time No acute surgical intervention indicated at this time Continue IV antibiotics OT for range of motion of left hand Continue with all other recommendations per Medicine Please re-consult if any further concerns Procedures Date of Service Date of Service: 10/18/24
--- NOTE | 2024-10-18 13:45 | HO.PM.IMPN ---
Subjective Subjective Date of Service: 10/18/24 Interval History: Seen and evaluated this morning feels little better still decreased ROM no other overnight events Review of Systems Review of Systems: Yes all other systems are reviewed and are negative Physical Exam Vital Signs: Vital Signs: Last Vital Signs Temp 98.1 F 10/18/24 07:44 Pulse 83 10/18/24 07:44 Resp 14 10/18/24 07:44 BP 124/80 10/18/24 07:44 Pulse Ox 92 10/18/24 07:44 O2 Del Method Room Air 10/18/24 07:44 BMI result Body Mass Index 23.8 Const: Other: Constitutional : interactive, not in distress Cardiovascular : no JVP, no lower extremity edema Respiratory : bilateral chest movement, not in resp distress Gastrointestinal: soft, lax, Non tender Skin : Warm, Dry, hand swollen with decrease ability to make a fist, erythema and tenderness Neurological : Alert & oriented , No focal deficit Objective Data Active Medications Acetaminophen (Acetaminophen 325 Mg Tablet) 650 mg PO Q6H PRN PRN Reason: Pain, Mild 1-3,fever,headache Last Admin: 10/18/24 08:15 Dose: 650 mg Documented By: ALLAN Albuterol/Ipratropium (Albuterol/Iprat 2.5/0.5mg 3 Ml Ampul.Neb) 3 ml INHALE RQ4H WHILE AWAKE PRN PRN Reason: sob Amlodipine Besylate (Amlodipine Besylate 2.5 Mg Tablet) 2.5 mg PO DAILY [facility]; Protocol Last Admin: 10/18/24 08:14 Dose: 2.5 mg Documented By: ALLAN Atorvastatin Calcium (Atorvastatin Calcium 40 Mg Tablet) 40 mg PO BEDTIME [facility] Last Admin: 10/17/24 20:46 Dose: 40 mg Documented By: LESLIE Buspirone HCl (Buspirone Hcl 10 Mg Tablet) 10 mg PO BID [facility] Last Admin: 10/18/24 08:14 Dose: 10 mg Documented By: ALLAN Calcium Carbonate (Calcium Carbonate 750 Mg Tab.Chew) 750 mg PO Q4H PRN PRN Reason: Heartburn Enoxaparin Sodium (Enoxaparin Sodium 40 Mg/0.4 Ml Syringe) 40 mg SUBCUT Q24H [facility] Last Admin: 10/18/24 10:24 Dose: 40 mg Documented By: ALLAN Escitalopram Oxalate (Escitalopram Oxalate 10 Mg Tablet) 10 mg PO DAILY [facility] Last Admin: 10/18/24 08:14 Dose: 10 mg Documented By: ALLAN Finasteride (Finasteride 5 Mg Tablet) 5 mg PO DAILY [facility] Last Admin: 10/18/24 08:14 Dose: 5 mg Documented By: ALLAN Hydrochlorothiazide (Hydrochlorothiazide 12.5 Mg Tablet) 12.5 mg PO DAILY [facility]; Protocol Last Admin: 10/18/24 08:14 Dose: 12.5 mg Documented By: ALLAN Hydromorphone HCl (Hydromorphone Hcl 2 Mg Tablet) 1 mg PO Q4H PRN PRN Reason: Pain, Severe (Pain Scale 7-10) Last Admin: 10/18/24 10:30 Dose: 1 mg Documented By: ALLNA Vancomycin HCl 1,250 mg/ (Sodium Chloride) 250 mls @ 166.667 mls/hr IV Q12H [facility] Last Infusion: 10/18/24 12:56 Dose: Infused Documented By: ALLAN Lorazepam (Lorazepam 0.5 Mg Tablet) 0.5 mg PO BID PRN PRN Reason: Anxiety Magnesium Hydroxide (Milk Of Magnesia 30 Ml Oral.Susp) 30 ml PO DAILY PRN PRN Reason: Constipation Melatonin (Melatonin 3 Mg Tablet) 6 mg PO BEDTIME PRN PRN Reason: Insomnia Montelukast Sodium (Montelukast Sodium 10 Mg Tablet) 10 mg PO BEDTIME [facility] Last Admin: 10/17/24 20:46 Dose: 10 mg Documented By: LESLIE Omeprazole (Omeprazole 40 Mg Capsule.Dr) 40 mg PO DAILY@0630 [facility] Last Admin: 10/18/24 05:45 Dose: 40 mg Documented By: ROXANNE Pharmacy Consult (Consult Rx Vancomycin Dosing) 1 each MISCELLANE DAILY PRN PRN Reason: Consult order Sodium Chloride (0.9 % Sodium Chloride Flush 3 Ml Syringe) 3 ml IVFLUSH QSHIFT [facility] Last Admin: 10/18/24 08:17 Dose: 3 ml Documented By: ALLAN Tamsulosin HCl (Tamsulosin Hcl 0.4 Mg Capsule) 0.4 mg PO BEDTIME [facility] Last Admin: 10/17/24 20:46 Dose: 0.4 mg Documented By: LESLIE Vitamin D (Cholecalciferol (Vitamin D3) 25 Mcg Tablet) 25 mcg PO DAILY ELISA Last Admin: 10/18/24 08:14 Dose: 25 mcg Documented By: ALLAN Labs 10/18/24 05:18 10/18/24 05:18 Labs: Laboratory Results - last 24 hr 10/18/24 10/18/24 05:18 09:06 MCV 88.2 MCH 28.7 MCHC 32.6 RDW 12.6 Plt Count 149 L MPV 10.1 Absolute Nucleated RBC 0.000 Nucleated RBC % (auto) 0.0 Anion Gap 10 L Estim Creat Clear Calc 89.1 Estimated GFR > 60 Random Glucose 117 H Calcium 8.8 D Random Vancomycin 6.6 L Microbiology Microbiology Results: Microbiology 10/17/24 09:58 Blood Culture - Preliminary Blood - Venous No growth after 24 hours. 10/17/24 10:00 Blood Culture - Preliminary Blood - Venous No growth after 24 hours. Assessment and Plan (1) Cellulitis of hand: Status: Acute Plan 74M PMH COPD/moderate persistent asthma, hypertension, hyperlipidemia, BPH, mood disorder presented with left hand swelling and erythema Bug bite complicated by left hand cellulitis Continue IV vancomycin Follow up culture pending hand surgery eval follow Vanco trough COPD/moderate persistent asthma Continue Singulair, inhalers BPH Continue Proscar and alpha gabriel Hypertension Continue amlodipine, HCTZ Hyperlipidemia Continue statin dvt prophylaxis- lovenox full code patient with cellulitis in high risk area (hand) requiring iv abx and close observation, expected to require overnight stay inpatient Quality Stroke Does the patient have a stroke diagnosis?: No VTE Prior VTE?: No VTE Risk Level:: Medical - moderate - high VTE Device Contraindication: Treatment Not Indicated VTE Drug Contraindication: N/A - Med Ordered
[2024-10-18 15:49] VITALS: BP 104/76; PULSE 73; RESP 18; TEMP 36.9; O2SAT 94
[2024-10-18] MEDS: Tamsulosin HCL 0.4 MG CAPSULE PO (20:20)
[2024-10-18] MEDS: Atorvastatin Calcium 40 MG TABLET PO (20:20)
[2024-10-18] MEDS: Montelukast Sodium 10 MG TABLET PO (20:20)
[2024-10-18 23:10] VITALS: BP 132/71; PULSE 80; RESP 18; TEMP 37.6; O2SAT 92
[2024-10-19] MEDS: 0.9 % Sodium Chloride Flush 3 ML SYRINGE IVFLUSH ×4 (00:06→15:34)
[2024-10-19] MEDS: Omeprazole 40 MG CAPSULE.DR PO (05:40)
[2024-10-19 06:24] LABS: MANUAL DIFF FLAG NO
[2024-10-19 06:45] LABS: Basophils Percent Auto 0.4 % (0-2); Eosinophils Absolute Auto 0.1 X10*3/uL (0.0-0.4); Eosinophils Percent Auto 1.7 % (0-4); Hematocrit 38.9 % (42.0-52.0); Hemoglobin 12.8 g/dl (14.0-18.0); Imm Gran Abs Auto 0.04 X10*3/uL (0.00-0.03); Imm Gran Pct Auto 0.5 % (0.0-0.4); Lymphocytes Absolute Auto 0.9 X10*3/uL (1.2-4.9); Mean Corpuscular HGB Conc 32.9 g/dl (31.0-36.0); Mean Corpuscular Hemoglobin 28.7 pg (27.0-33.0); Mean Corpuscular Volume 87.2 fL (80.0-98.0); Monocytes Absolute Auto 0.6 X10*3/uL (0.1-1.2); Monocytes Percent Auto 7.9 % (2-11); Neutrophils Percent Auto 77.5 % (45-73); Platelet Count 155 X10*3/uL (160-400); Red Blood Count 4.46 X10*6/uL (4.60-5.80); Red Cell Distribution Width 12.2 % (11.0-16.0); White Blood Count 7.7 X10*3/uL (4.8-10.8)
[2024-10-19 07:07] LABS: Creatinine Clr Calc Pharmacy 90.4; Estimated Glomerular Filt Rate > 60
[2024-10-19 07:19] LABS: Anion Gap 12 (12-20); Blood Urea Nitrogen 14 mg/dL (9-16); Calcium 8.9 mg/dL (8.4-10.2); Carbon Dioxide 27 mmol/L (22-29); Chloride 104 mmol/L (96-108); Creatinine Clr Calc Pharmacy 91.8; Estimated Glomerular Filt Rate > 60; Glucose Random 118 mg/dL (60-115); Potassium 3.8 mmol/L (3.3-5.1); Sodium 139 mmol/L (135-145)
[2024-10-19 07:50] VITALS: BP 124/77; PULSE 76; RESP 18; TEMP 36.6; O2SAT 95
[2024-10-19 09:50] LABS: Vancomycin Random 9.7 mcg/mL (15-20)
[2024-10-19] MEDS: Enoxaparin Sodium 40 MG/0.4 ML SYRINGE SUBCUT (09:54)
[2024-10-19] MEDS: Cholecalciferol (Vitamin D3) 25 MCG TABLET PO (09:55)
[2024-10-19] MEDS: Finasteride 5 MG TABLET PO (09:56)
[2024-10-19] MEDS: busPIRone HCl 10 MG TABLET PO ×2 (09:56→20:13)
[2024-10-19] MEDS: Escitalopram Oxalate 10 MG TABLET PO (09:56)
[2024-10-19 09:57] VITALS: BP 116/71
[2024-10-19] MEDS: hydroCHLOROthiazide 12.5 MG TABLET PO (09:57)
[2024-10-19] MEDS: amLODIPine Besylate 2.5 MG TABLET PO (09:57)
--- NOTE | 2024-10-19 09:58 | HE.PHANOTE ---
VANCO DOSE ADJUSTMENT BASED SCR AND TROUGH OF 9.7. DOSE INCREASED OF 1500 Q 12H AND NEXT LEVEL 10/20 @ 0900
[2024-10-19] MEDS: HYDROmorphone HCl 2 MG TABLET 1 MG PO ×3 (10:55→20:49)
[2024-10-19] MEDS: vancomycin HCL 1,500 MG in 0.9 % Sodium Chloride 500 ML 333.33 MG IV ×2 (11:33→22:31)
--- NOTE | 2024-10-19 14:07 | P.PNIM_ITS ---
Subjective Subjective Date of Service: 10/19/24 Interval History: Seen and evaluated this morning feels little better , swelling decreased, still very tender to touch decreased ROM of thumb no other overnight events Review of Systems Review of Systems: Yes all other systems are reviewed and are negative Physical Exam 2 Vital Signs: Vital Signs: Last Vital Signs Temp 97.9 F 10/19/24 07:50 Pulse 76 10/19/24 07:50 Resp 18 10/19/24 07:50 BP 116/71 10/19/24 09:57 Pulse Ox 95 10/19/24 07:50 O2 Del Method Room Air 10/19/24 07:50 BMI result Body Mass Index 23.8 Const: Other: Constitutional : interactive, not in distress Cardiovascular : no JVP, no lower extremity edema Respiratory : bilateral chest movement, not in resp distress Gastrointestinal: soft, lax, Non tender Skin : Warm, Dry, hand swollen with decrease ability to make a fist, erythema and tenderness Neurological : Alert & oriented , No focal deficit Objective Data Active Medications Acetaminophen (Acetaminophen 325 Mg Tablet) 650 mg PO Q6H PRN PRN Reason: Pain, Mild 1-3,fever,headache Last Admin: 10/18/24 08:15 Dose: 650 mg Documented By: ALLAN Albuterol/Ipratropium (Albuterol/Iprat 2.5/0.5mg 3 Ml Ampul.Neb) 3 ml INHALE RQ4H WHILE AWAKE PRN PRN Reason: sob Amlodipine Besylate (Amlodipine Besylate 2.5 Mg Tablet) 2.5 mg PO DAILY [facility]; Protocol Last Admin: 10/19/24 09:57 Dose: 2.5 mg Documented By: JULIEN Atorvastatin Calcium (Atorvastatin Calcium 40 Mg Tablet) 40 mg PO BEDTIME [facility] Last Admin: 10/18/24 20:20 Dose: 40 mg Documented By: PELON Buspirone HCl (Buspirone Hcl 10 Mg Tablet) 10 mg PO BID [facility] Last Admin: 10/19/24 09:56 Dose: 10 mg Documented By: JULIEN Calcium Carbonate (Calcium Carbonate 750 Mg Tab.Chew) 750 mg PO Q4H PRN PRN Reason: Heartburn Enoxaparin Sodium (Enoxaparin Sodium 40 Mg/0.4 Ml Syringe) 40 mg SUBCUT Q24H [facility] Last Admin: 10/19/24 09:54 Dose: 40 mg Documented By: JULIEN Escitalopram Oxalate (Escitalopram Oxalate 10 Mg Tablet) 10 mg PO DAILY [facility] Last Admin: 10/19/24 09:56 Dose: 10 mg Documented By: JULIEN Finasteride (Finasteride 5 Mg Tablet) 5 mg PO DAILY [facility] Last Admin: 10/19/24 09:56 Dose: 5 mg Documented By: JULIEN Hydrochlorothiazide (Hydrochlorothiazide 12.5 Mg Tablet) 12.5 mg PO DAILY [facility]; Protocol Last Admin: 10/19/24 09:57 Dose: 12.5 mg Documented By: JULIEN Hydromorphone HCl (Hydromorphone Hcl 2 Mg Tablet) 1 mg PO Q4H PRN PRN Reason: Pain, Severe (Pain Scale 7-10) Last Admin: 10/19/24 10:55 Dose: 1 mg Documented By: JULIEN Vancomycin HCl 1,500 mg/ (Sodium Chloride) 500 mls @ 333.333 mls/hr IV Q12H [facility] Last Admin: 10/19/24 11:33 Dose: 333.33 mls/hr Documented By: KATHY Lorazepam (Lorazepam 0.5 Mg Tablet) 0.5 mg PO BID PRN PRN Reason: Anxiety Magnesium Hydroxide (Milk Of Magnesia 30 Ml Oral.Susp) 30 ml PO DAILY PRN PRN Reason: Constipation Melatonin (Melatonin 3 Mg Tablet) 6 mg PO BEDTIME PRN PRN Reason: Insomnia Montelukast Sodium (Montelukast Sodium 10 Mg Tablet) 10 mg PO BEDTIME [facility] Last Admin: 10/18/24 20:20 Dose: 10 mg Documented By: PELON Omeprazole (Omeprazole 40 Mg Capsule.) 40 mg PO DAILY@0630 [facility] Last Admin: 10/19/24 05:40 Dose: 40 mg Documented By: PELON Pharmacy Consult (Consult Rx Vancomycin Dosing) 1 each MISCELLANE DAILY PRN PRN Reason: Consult order Sodium Chloride (0.9 % Sodium Chloride Flush 3 Ml Syringe) 3 ml IVFLUSH QSHIFT [facility] Last Admin: 10/19/24 09:59 Dose: 3 ml Documented By: JULIEN Tamsulosin HCl (Tamsulosin Hcl 0.4 Mg Capsule) 0.4 mg PO BEDTIME [facility] Last Admin: 10/18/24 20:20 Dose: 0.4 mg Documented By: PELON Vitamin D (Cholecalciferol (Vitamin D3) 25 Mcg Tablet) 25 mcg PO DAILY [facility] Last Admin: 10/19/24 09:55 Dose: 25 mcg Documented By: JULIEN Labs 10/19/24 06:07 10/19/24 06:07 Labs: Laboratory Results - last 24 hr 10/19/24 10/19/24 10/19/24 06:07 06:07 06:07 MCV 87.2 MCH 28.7 MCHC 32.9 RDW 12.2 Plt Count 155 L MPV 10.0 Immature Gran % (Auto) 0.5 H Neut % (Auto) 77.5 H Lymph % (Auto) 12.0 L [place] % (Auto) 7.9 Eos % (Auto) 1.7 Baso % (Auto) 0.4 Lymph # (Auto) 0.9 L [place] # (Auto) 0.6 Eos # (Auto) 0.1 Baso # (Auto) 0.0 Abs Immat Gran (auto) 0.04 H Absolute Neuts (auto) 6.0 Absolute Nucleated RBC 0.000 Nucleated RBC % (auto) 0.0 Anion Gap 12 Estim Creat Clear Calc 90.4 91.8 Estimated GFR > 60 > 60 Random Glucose 118 H Calcium 8.9 Random Vancomycin 10/19/24 08:50 MCV MCH MCHC RDW Plt Count MPV Immature Gran % (Auto) Neut % (Auto) Lymph % (Auto) [place] % (Auto) Eos % (Auto) Baso % (Auto) Lymph # (Auto) [place] # (Auto) Eos # (Auto) Baso # (Auto) Abs Immat Gran (auto) Absolute Neuts (auto) Absolute Nucleated RBC Nucleated RBC % (auto) Anion Gap Estim Creat Clear Calc Estimated GFR Random Glucose Calcium Random Vancomycin 9.7 L Microbiology Microbiology Results: Microbiology 10/17/24 09:58 Blood Culture - Preliminary Blood - Venous No growth after 48 hours. 10/17/24 10:00 Blood Culture - Preliminary Blood - Venous No growth after 48 hours. Assessment and Plan (1) Cellulitis of hand: Status: Acute Plan 74M PMH COPD/moderate persistent asthma, hypertension, hyperlipidemia, BPH, mood disorder presented with left hand swelling and erythema Bug bite complicated by left hand cellulitis still significantly painful and swollen Vanco trough low Continue IV vancomycin Add Unasyn Follow up culture pending hand surgery eval follow Vanco trough COPD/moderate persistent asthma Continue Singulair, inhalers BPH Continue Proscar and alpha gabriel Hypertension Continue amlodipine, HCTZ Hyperlipidemia Continue statin dvt prophylaxis- lovenox full code patient with cellulitis in high risk area (hand) requiring iv abx and close observation, expected to require overnight stay inpatient Quality Stroke Does the patient have a stroke diagnosis?: No VTE Prior VTE?: No VTE Risk Level:: Medical - moderate - high VTE Device Contraindication: Treatment Not Indicated VTE Drug Contraindication: N/A - Med Ordered
[2024-10-19] MEDS: Ampicillin Sodium/Sulbactam Na 3 GM in 0.9 % Sodium Chloride 100 ML IV ×2 (14:42→20:13)
[2024-10-19 15:18] VITALS: BP 125/82; PULSE 98; RESP 18; TEMP 36.7; O2SAT 92
[2024-10-19] MEDS: Acetaminophen 325 MG TABLET 650 MG PO (18:43)
[2024-10-19] MEDS: Atorvastatin Calcium 40 MG TABLET PO (20:13)
[2024-10-19] MEDS: Montelukast Sodium 10 MG TABLET PO (20:13)
[2024-10-19] MEDS: Tamsulosin HCL 0.4 MG CAPSULE PO (20:13)
[2024-10-19 23:35] VITALS: BP 113/65; PULSE 70; RESP 18; TEMP 36.4; O2SAT 93
[2024-10-20] VITALS (11 sets, daily range): BP systolic 87–144; BP diastolic 49–84; PULSE 68–94; RESP 12–18; TEMP 36.1–37.6; O2SAT 78–99
[2024-10-20] MEDS: Ampicillin Sodium/Sulbactam Na 3 GM in 0.9 % Sodium Chloride 100 ML IV ×4 (01:45→22:31)
[2024-10-20] MEDS: Omeprazole 40 MG CAPSULE.DR PO (05:34)
[2024-10-20 06:01] LABS: MANUAL DIFF FLAG NO
[2024-10-20 06:07] LABS: Basophils Percent Auto 0.5 % (0-2); Eosinophils Absolute Auto 0.2 X10*3/uL (0.0-0.4); Eosinophils Percent Auto 3.3 % (0-4); Hematocrit 38.9 % (42.0-52.0); Hemoglobin 12.7 g/dl (14.0-18.0); Imm Gran Abs Auto 0.02 X10*3/uL (0.00-0.03); Imm Gran Pct Auto 0.3 % (0.0-0.4); Lymphocytes Absolute Auto 0.9 X10*3/uL (1.2-4.9); Lymphocytes Percent Auto 14.2 % (20-40); Mean Corpuscular HGB Conc 32.6 g/dl (31.0-36.0); Mean Corpuscular Hemoglobin 28.9 pg (27.0-33.0); Mean Corpuscular Volume 88.4 fL (80.0-98.0); Mean Platelet Volume 9.9 fL (9.4-12.4); Monocytes Absolute Auto 0.5 X10*3/uL (0.1-1.2); Monocytes Percent Auto 8.9 % (2-11); Neutrophils Absolute Auto 4.4 x10*3/uL (2.0-8.3); Neutrophils Percent Auto 72.8 % (45-73); Platelet Count 170 X10*3/uL (160-400); Red Cell Distribution Width 12.1 % (11.0-16.0)
[2024-10-20 06:26] LABS: Anion Gap 11 (12-20); Blood Urea Nitrogen 13 mg/dL (9-16); Calcium 9.2 mg/dL (8.4-10.2); Carbon Dioxide 30 mmol/L (22-29); Chloride 105 mmol/L (96-108); Creatinine Clr Calc Pharmacy 91.8; Estimated Glomerular Filt Rate > 60; Glucose Random 112 mg/dL (60-115); Potassium 4.7 mmol/L (3.3-5.1); Sodium 141 mmol/L (135-145)
[2024-10-20] MEDS: HYDROmorphone HCl 2 MG TABLET 1 MG PO ×2 (08:17→17:31)
[2024-10-20] MEDS: busPIRone HCl 10 MG TABLET PO ×2 (08:25→20:00)
[2024-10-20] MEDS: hydroCHLOROthiazide 12.5 MG TABLET PO (08:25)
[2024-10-20] MEDS: Cholecalciferol (Vitamin D3) 25 MCG TABLET PO (08:25)
[2024-10-20] MEDS: amLODIPine Besylate 2.5 MG TABLET PO (08:25)
[2024-10-20] MEDS: Escitalopram Oxalate 10 MG TABLET PO (08:25)
[2024-10-20] MEDS: Finasteride 5 MG TABLET PO (08:26)
[2024-10-20] MEDS: 0.9 % Sodium Chloride Flush 3 ML SYRINGE IVFLUSH ×3 (08:32→23:26)
[2024-10-20 09:46] LABS: Vancomycin Trough 12.7 mcg/mL (10.0-20.0)
--- NOTE | 2024-10-20 09:55 | HO.PM.IMPN ---
Subjective Subjective Date of Service: 10/20/24 Interval History: Seen and evaluated this morning reporting significant pain and yellowish drainage , swelling decreased still very tender to touch decreased ROM of thumb no other overnight events Review of Systems Review of Systems: Yes all other systems are reviewed and are negative Physical Exam Vital Signs: Vital Signs: Last Vital Signs Temp 97.3 F 10/20/24 08:00 Pulse 78 10/20/24 08:00 Resp 18 10/20/24 08:00 BP 144/77 H 10/20/24 08:00 Pulse Ox 78 L 10/20/24 08:00 O2 Del Method Room Air 10/20/24 08:00 BMI result Body Mass Index 23.8 Const: Other: Constitutional : interactive, not in distress Cardiovascular : no JVP, no lower extremity edema Respiratory : bilateral chest movement, not in resp distress Gastrointestinal: soft, lax, Non tender Skin : Warm, Dry, hand swollen with decrease ability to make a fist, erythema and tenderness Neurological : Alert & oriented , No focal deficit Objective Data Active Medications Acetaminophen (Acetaminophen 325 Mg Tablet) 650 mg PO Q6H PRN PRN Reason: Pain, Mild 1-3,fever,headache Last Admin: 10/19/24 18:43 Dose: 650 mg Documented By: CATRINA Albuterol/Ipratropium (Albuterol/Iprat 2.5/0.5mg 3 Ml Ampul.Neb) 3 ml INHALE RQ4H WHILE AWAKE PRN PRN Reason: sob Amlodipine Besylate (Amlodipine Besylate 2.5 Mg Tablet) 2.5 mg PO DAILY [facility]; Protocol Last Admin: 10/20/24 08:25 Dose: 2.5 mg Documented By: ROZINA Atorvastatin Calcium (Atorvastatin Calcium 40 Mg Tablet) 40 mg PO BEDTIME [facility] Last Admin: 10/19/24 20:13 Dose: 40 mg Documented By: PELON Buspirone HCl (Buspirone Hcl 10 Mg Tablet) 10 mg PO BID [facility] Last Admin: 10/20/24 08:25 Dose: 10 mg Documented By: ROZINA Calcium Carbonate (Calcium Carbonate 750 Mg Tab.Chew) 750 mg PO Q4H PRN PRN Reason: Heartburn Enoxaparin Sodium (Enoxaparin Sodium 40 Mg/0.4 Ml Syringe) 40 mg SUBCUT Q24H [facility] Last Admin: 10/19/24 09:54 Dose: 40 mg Documented By: JULIEN Escitalopram Oxalate (Escitalopram Oxalate 10 Mg Tablet) 10 mg PO DAILY [facility] Last Admin: 10/20/24 08:25 Dose: 10 mg Documented By: ROZINA Finasteride (Finasteride 5 Mg Tablet) 5 mg PO DAILY [facility] Last Admin: 10/20/24 08:26 Dose: 5 mg Documented By: ROZINA Hydrochlorothiazide (Hydrochlorothiazide 12.5 Mg Tablet) 12.5 mg PO DAILY [facility]; Protocol Last Admin: 10/20/24 08:25 Dose: 12.5 mg Documented By: ROZINA Hydromorphone HCl (Hydromorphone Hcl 2 Mg Tablet) 1 mg PO Q4H PRN PRN Reason: Pain, Severe (Pain Scale 7-10) Last Admin: 10/19/24 20:49 Dose: 1 mg Documented By: PELON Vancomycin HCl 1,500 mg/ (Sodium Chloride) 500 mls @ 333.333 mls/hr IV Q12H [facility] Last Infusion: 10/20/24 00:02 Dose: Infused Documented By: PELON Ampicillin Sodium/Sulbactam (Sodium 3 gm/ Sodium Chloride) 100 mls @ 200 mls/hr IV Q6H [facility] Last Infusion: 10/20/24 09:06 Dose: Infused Documented By: ROZINA Lorazepam (Lorazepam 0.5 Mg Tablet) 0.5 mg PO BID PRN PRN Reason: Anxiety Magnesium Hydroxide (Milk Of Magnesia 30 Ml Oral.Susp) 30 ml PO DAILY PRN PRN Reason: Constipation Melatonin (Melatonin 3 Mg Tablet) 6 mg PO BEDTIME PRN PRN Reason: Insomnia Montelukast Sodium (Montelukast Sodium 10 Mg Tablet) 10 mg PO BEDTIME [facility] Last Admin: 10/19/24 20:13 Dose: 10 mg Documented By: PELON Omeprazole (Omeprazole 40 Mg Capsule.) 40 mg PO DAILY@0630 [facility] Last Admin: 10/20/24 05:34 Dose: 40 mg Documented By: PELON Pharmacy Consult (Consult Rx Vancomycin Dosing) 1 each MISCELLANE DAILY PRN PRN Reason: Consult order Sodium Chloride (0.9 % Sodium Chloride Flush 3 Ml Syringe) 3 ml IVFLUSH QSHIFT [facility] Last Admin: 10/20/24 08:32 Dose: 3 ml Documented By: ROZINA Tamsulosin HCl (Tamsulosin Hcl 0.4 Mg Capsule) 0.4 mg PO BEDTIME [facility] Last Admin: 10/19/24 20:13 Dose: 0.4 mg Documented By: PELON Vitamin D (Cholecalciferol (Vitamin D3) 25 Mcg Tablet) 25 mcg PO DAILY [facility] Last Admin: 10/20/24 08:25 Dose: 25 mcg Documented By: ROZINA Labs 10/20/24 05:46 10/20/24 05:46 Labs: Laboratory Results - last 24 hr 10/20/24 10/20/24 10/20/24 05:46 05:46 05:46 MCV 88.4 MCH 28.9 MCHC 32.6 RDW 12.1 Plt Count 170 MPV 9.9 Immature Gran % (Auto) 0.3 Neut % (Auto) 72.8 Lymph % (Auto) 14.2 L [place] % (Auto) 8.9 Eos % (Auto) 3.3 Baso % (Auto) 0.5 Lymph # (Auto) 0.9 L [place] # (Auto) 0.5 Eos # (Auto) 0.2 Baso # (Auto) 0.0 Abs Immat Gran (auto) 0.02 Absolute Neuts (auto) 4.4 Absolute Nucleated RBC 0.000 Nucleated RBC % (auto) 0.0 Anion Gap 11 L Estim Creat Clear Calc Cancelled 91.8 Estimated GFR Cancelled > 60 Random Glucose 112 Calcium 9.2 Vancomycin Trough 10/20/24 09:18 MCV MCH MCHC RDW Plt Count MPV Immature Gran % (Auto) Neut % (Auto) Lymph % (Auto) [place] % (Auto) Eos % (Auto) Baso % (Auto) Lymph # (Auto) [place] # (Auto) Eos # (Auto) Baso # (Auto) Abs Immat Gran (auto) Absolute Neuts (auto) Absolute Nucleated RBC Nucleated RBC % (auto) Anion Gap Estim Creat Clear Calc Estimated GFR Random Glucose Calcium Vancomycin Trough 12.7 Microbiology Microbiology Results: Microbiology 10/17/24 09:58 Blood Culture - Preliminary Blood - Venous No growth after 48 hours. 10/17/24 10:00 Blood Culture - Preliminary Blood - Venous No growth after 48 hours. Assessment and Plan (1) Cellulitis of hand: Status: Acute (2) Abscess, hand: Status: Acute Plan 74M PMH COPD/moderate persistent asthma, hypertension, hyperlipidemia, BPH, mood disorder presented with left hand swelling and erythema Bug bite complicated by left hand cellulitis and abscess formaiton still significantly painful and swollen Vanco trough low Continue IV vancomycin and Unasyn Follow up culture hand surgery to do I&D today follow Vanco trough COPD/moderate persistent asthma Continue Singulair, inhalers BPH Continue Proscar and alpha gabriel Hypertension Continue amlodipine, HCTZ Hyperlipidemia Continue statin dvt prophylaxis- lovenox full code patient with cellulitis in high risk area (hand) requiring iv abx and surgical intervention, expected to require overnight stay inpatient Quality Stroke Does the patient have a stroke diagnosis?: No VTE Prior VTE?: No VTE Risk Level:: Medical - moderate - high VTE Device Contraindication: Treatment Not Indicated VTE Drug Contraindication: N/A - Med Ordered
[2024-10-20] MEDS: Enoxaparin Sodium 40 MG/0.4 ML SYRINGE SUBCUT (11:50)
[2024-10-20] MEDS: vancomycin HCL 1,500 MG in 0.9 % Sodium Chloride 500 ML 333.3 MG IV (11:51)
--- NOTE | 2024-10-20 14:05 | PC.NURSE ---
20G RIGHT LOWER ARM. ASYMPTOMATIC. FLUSHES PATENTLY.
[2024-10-20] MEDS: Lactated Ringers 1,000 ML 80 ML IVCONT (14:06)
--- NOTE | 2024-10-20 14:15 | MHC.SHP ---
Pre-Procedural Eval Section A - 24 Hr Update-Section A only Date of Service: 10/20/24 The patient is an INPATIENT: No Changes since office visit: No Cold of Flu in the past 2 weeks, No New Medical Problems, No Changes in Medication and No Patient answered all questions The patient has been examined within 24 hours of the surgical procedure. The History & Physical has been completed within 30 days and I have reviewed it.: Yes Section B - Complete if H&P > 30 days Chief Complaint: Cellulitis left hand abscess Allergies: Allergies Allergy/AdvReac Type Severity Reaction Status Date / Time oxycodone [From PERCOCET] Allergy Unknown HIVES Verified 10/17/24 08:01 Exam Exam Comment: The patient was seen and evaluated in preop hold by me today. After 2-3 days of antibiotics he has developed a focal area of worsening erythema tenderness and swelling over the dorsal aspect of the 1st webspace and thumb. This appears to be most consistent with an underlying abscess. No redness or tenderness on the palmar aspect of the hand or thumb. He can bring his fingers close to a fist and back into full extension. It is somewhat painful but he does have reasonable active range of motion of the thumb. No open wounds Recent radiographs were reviewed by me and show no fractures or dislocations, no osteomyelitis, and no foreign bodies. Plan Diagnosis/Plan: Unchanged I have reviewed the history and physical and performed a pertinent physical examination on my patient. No changes have occurred unless specified. Assessment and plan: 1. Left dorsal hand abscess I educated the patient about this condition we discussed operative and non operative treatment options. I am recommending an operative I and D and he agrees The risks and benefits of operative treatment were discussed with the patient and the patient wishes to proceed with surgery. These risks include, but are not limited to risk of damage to blood vessels, nerves, tendons, infection, recurrence, incomplete relief of preoperative symptoms, persistent pain, possible need for further surgery and the risks associated with regional blocks and anesthesia. The plan is to take the patient to the operating room today for the following procedures: 1. Left hand I&D 2. [ ] All of the preoperative paperwork including the consent was filled out today and signed. All the patient's questions were answered. Time Spent With Patient Time: Total time managing care of this patient today ____ minutes.
--- NOTE | 2024-10-20 14:16 | P.CONAN_ITS ---
HPI - Anesthesia Eval Consult details Narrative: Chelsey Morales [facility] Active Problems Active Problems: All Active Problems Abscess, hand (Acute) Cellulitis of hand (Acute) Asthma (Acute) Palpitations (Acute) Elevated PSA (Acute) Personal history of nicotine dependence (Acute) COPD (chronic obstructive pulmonary disease) (Acute) HTN (hypertension) (Acute) Precordial chest pain (Acute) COVID-19 (Acute) Nephrolithiasis (Acute) Urinary retention with incomplete bladder emptying (Acute) Gross hematuria (Acute) BPH w urinary obs/LUTS (Acute) Past Medical History Medical History Vitamin D deficiency Hematuria PVD (peripheral vascular disease) Esophageal dysphagia BPH loc w urin obs/LUTS Asthma HTN (hypertension) Family History Family History Father No problems noted. Mother No problems noted. Family history of problems with anesthesia: No Surgical History Surgical History Hx of colonoscopy History of surgery Hx of prostatectomy History of Problems with Anesthesia: No Social History Social History Housing: Apartment Do you presently have visiting nurse or other home services: No Alcohol intake: former Patient Tobacco Use Status: Former Tobacco user Years Smoked: started in his 20's, quit 13 years ago e-Cigarette/Vaping Use: Former Use Use of substances other than those prescribed or required for medical reasons: No Currently Displaying Signs/Symptoms of Drug Intoxication Withdrawal: No Have you been hit, kicked, punched, or otherwise hurt by someone within the past year? If so, by whom?: No Do you feel safe in your current relationship?: No Is there a partner from a previous relationship who is making you feel unsafe now?: No Are you made to feel afraid or neglected: No Synagogue Healthcare Practices: jewish Advance Directives: No Advance Directives Information Provided: Yes Do you have a plan to hurt others: No Plan Recently lost weight without trying: No Nutrition Risks: No Nutritional Risk service: No Meds Allergies Allergy/AdvReac Type Severity Reaction Status Date / Time oxycodone [From PERCOCET] Allergy Unknown HIVES Verified 10/17/24 08:01 Active Medications: Current Medications Acetaminophen (Acetaminophen 325 Mg Tablet) 650 mg PO Q6H PRN PRN Reason: Pain, Mild 1-3,fever,headache Last Admin: 10/19/24 18:43 Dose: 650 mg Albuterol/Ipratropium (Albuterol/Iprat 2.5/0.5mg 3 Ml Ampul.Neb) 3 ml INHALE RQ4H WHILE AWAKE PRN PRN Reason: sob Amlodipine Besylate (Amlodipine Besylate 2.5 Mg Tablet) 2.5 mg PO DAILY [facility]; Protocol Last Admin: 10/20/24 08:25 Dose: 2.5 mg Atorvastatin Calcium (Atorvastatin Calcium 40 Mg Tablet) 40 mg PO BEDTIME ELISA Last Admin: 10/19/24 20:13 Dose: 40 mg Buspirone HCl (Buspirone Hcl 10 Mg Tablet) 10 mg PO BID [facility] Last Admin: 10/20/24 08:25 Dose: 10 mg Calcium Carbonate (Calcium Carbonate 750 Mg Tab.Chew) 750 mg PO Q4H PRN PRN Reason: Heartburn Enoxaparin Sodium (Enoxaparin Sodium 40 Mg/0.4 Ml Syringe) 40 mg SUBCUT Q24H [facility] Last Admin: 10/20/24 11:50 Dose: 40 mg Escitalopram Oxalate (Escitalopram Oxalate 10 Mg Tablet) 10 mg PO DAILY [facility] Last Admin: 10/20/24 08:25 Dose: 10 mg Finasteride (Finasteride 5 Mg Tablet) 5 mg PO DAILY [facility] Last Admin: 10/20/24 08:26 Dose: 5 mg Hydrochlorothiazide (Hydrochlorothiazide 12.5 Mg Tablet) 12.5 mg PO DAILY [facility]; Protocol Last Admin: 10/20/24 08:25 Dose: 12.5 mg Hydromorphone HCl (Hydromorphone Hcl 2 Mg Tablet) 1 mg PO Q4H PRN PRN Reason: Pain, Severe (Pain Scale 7-10) Last Admin: 10/19/24 20:49 Dose: 1 mg Vancomycin HCl 1,500 mg/ (Sodium Chloride) 500 mls @ 333.333 mls/hr IV Q12H [facility] Last Infusion: 10/20/24 13:36 Dose: Infused Ampicillin Sodium/Sulbactam (Sodium 3 gm/ Sodium Chloride) 100 mls @ 200 mls/hr IV Q6H [facility] Last Infusion: 10/20/24 09:06 Dose: Infused Lorazepam (Lorazepam 0.5 Mg Tablet) 0.5 mg PO BID PRN PRN Reason: Anxiety Magnesium Hydroxide (Milk Of Magnesia 30 Ml Oral.Susp) 30 ml PO DAILY PRN PRN Reason: Constipation Melatonin (Melatonin 3 Mg Tablet) 6 mg PO BEDTIME PRN PRN Reason: Insomnia Montelukast Sodium (Montelukast Sodium 10 Mg Tablet) 10 mg PO BEDTIME [facility] Last Admin: 10/19/24 20:13 Dose: 10 mg Omeprazole (Omeprazole 40 Mg Capsule.Dr) 40 mg PO DAILY@0630 [facility] Last Admin: 10/20/24 05:34 Dose: 40 mg Pharmacy Consult (Consult Rx Vancomycin Dosing) 1 each MISCELLANE DAILY PRN PRN Reason: Consult order Sodium Chloride (0.9 % Sodium Chloride Flush 3 Ml Syringe) 3 ml IVFLUSH QSHIFT [facility] Last Admin: 10/20/24 08:32 Dose: 3 ml Tamsulosin HCl (Tamsulosin Hcl 0.4 Mg Capsule) 0.4 mg PO BEDTIME [facility] Last Admin: 10/19/24 20:13 Dose: 0.4 mg Vitamin D (Cholecalciferol (Vitamin D3) 25 Mcg Tablet) 25 mcg PO DAILY [facility] Last Admin: 10/20/24 08:25 Dose: 25 mcg Home Medications ?Medication ?Instructions ?Recorded ?Confirmed ?Last Taken ?Type albuterol sulfate 90 mcg/actuation 2 puff PO Q4-6H PRN Shortness Of 08/27/20 10/17/24 Unknown History aerosol inhaler Breath Or Wheezing atorvastatin 40 mg tablet 40 mg PO BEDTIME 08/27/20 10/17/24 10/16/24 History zolpidem 5 mg tablet 5 mg PO BEDTIME PRN Insomnia 08/27/20 10/17/24 10/16/24 History hydroxyzine HCl 25 mg tablet 25 mg PO DAILY PRN Anxiety 04/22/21 10/17/24 Unknown History buspirone 10 mg tablet 10 mg PO BID anxiety 12/17/21 10/17/24 10/17/24 History escitalopram oxalate 10 mg tablet 10 mg PO DAILY 12/17/21 10/17/24 10/17/24 History lorazepam 0.5 mg tablet 0.5 mg PO BID PRN Anxiety 05/12/23 10/17/24 Unknown History montelukast 10 mg tablet 10 mg PO BEDTIME 05/12/23 10/17/24 10/17/24 History budesonide 160 mcg-glycopyr 9 2 inh inhalation BID 10/17/24 10/17/24 10/17/24 History mcg-formot 4.8 mcg/actuation HFA inhaler (Breztri Aerosphere) cholecalciferol (vitamin D3) 25 25 mcg PO DAILY 10/17/24 10/17/24 10/17/24 History mcg (1,000 unit) tablet hydrochlorothiazide 12.5 mg tablet 12.5 mg PO DAILY 10/17/24 10/17/24 10/17/24 History omeprazole 40 mg capsule,delayed 40 mg PO DAILY@0630 10/17/24 10/17/24 10/17/24 History release Exam Height,Weight and Vital Signs: Height 5 ft 7 in Weight 68.9 kg Last Vital Signs Temp 98.9 F 10/20/24 13:58 Pulse 88 10/20/24 13:58 Resp 16 10/20/24 13:58 BP 138/84 10/20/24 13:58 Pulse Ox 94 10/20/24 13:58 O2 Del Method Room Air 10/20/24 13:58 Pertinent Lab Results Pertinent Lab Results: Laboratory Tests 10/17/24 10/17/24 10/18/24 08:18 10:00 05:18 WBC 11.2 H 8.7 RBC 4.90 4.49 L Hgb 14.2 12.9 L Hct 42.1 39.6 L MCV 85.9 88.2 MCH 29.0 28.7 MCHC 33.7 32.6 RDW 12.4 12.6 Plt Count 171 149 L MPV 9.8 10.1 Immature Gran % (Auto) 0.4 Neut % (Auto) 85.6 H Lymph % (Auto) 7.0 L Callahan % (Auto) 6.6 Eos % (Auto) 0.1 Baso % (Auto) 0.3 Lymph # (Auto) 0.8 L [place]ahan # (Auto) 0.7 Eos # (Auto) 0.0 Baso # (Auto) 0.0 Abs Immat Gran (auto) 0.05 H Absolute Neuts (auto) 9.6 H Absolute Nucleated RBC 0.000 0.000 Nucleated RBC % (auto) 0.0 0.0 ESR 8 Sodium 140 139 Potassium 3.6 4.1 Chloride 107 108 Carbon Dioxide 26 25 Anion Gap 11 L 10 L BUN 15 15 Creatinine 0.80 0.68 Estim Creat Clear Calc 75.7 89.1 Estimated GFR > 60 > 60 Random Glucose 161 H 117 H Lactic Acid 1.5 Calcium 9.6 D 8.8 D Total Bilirubin 1.4 H AST 25 ALT 40 Alkaline Phosphatase 55 C-Reactive Protein 4.30 H Total Protein 6.9 Albumin 4.4 Vancomycin Trough Random Vancomycin 10/18/24 10/19/24 10/19/24 09:06 06:07 06:07 WBC 7.7 RBC 4.46 L Hgb 12.8 L Hct 38.9 L MCV 87.2 MCH 28.7 MCHC 32.9 RDW 12.2 Plt Count 155 L MPV 10.0 Immature Gran % (Auto) 0.5 H Neut % (Auto) 77.5 H Lymph % (Auto) 12.0 L Callahan % (Auto) 7.9 Eos % (Auto) 1.7 Baso % (Auto) 0.4 Lymph # (Auto) 0.9 L [place]ahan # (Auto) 0.6 Eos # (Auto) 0.1 Baso # (Auto) 0.0 Abs Immat Gran (auto) 0.04 H Absolute Neuts (auto) 6.0 Absolute Nucleated RBC 0.000 Nucleated RBC % (auto) 0.0 ESR Sodium 139 Potassium 3.8 Chloride 104 Carbon Dioxide 27 Anion Gap 12 BUN 14 Creatinine 0.67 0.66 Estim Creat Clear Calc 90.4 Estimated GFR Random Glucose Lactic Acid Calcium Total Bilirubin AST ALT Alkaline Phosphatase C-Reactive Protein Total Protein Albumin Vancomycin Trough Random Vancomycin 6.6 L 10/19/24 10/19/24 10/19/24 06:07 06:07 08:50 WBC RBC Hgb Hct MCV MCH MCHC RDW Plt Count MPV Immature Gran % (Auto) Neut % (Auto) Lymph % (Auto) Callahan % (Auto) Eos % (Auto) Baso % (Auto) Lymph # (Auto) Callahan # (Auto) Eos # (Auto) Baso # (Auto) Abs Immat Gran (auto) Absolute Neuts (auto) Absolute Nucleated RBC Nucleated RBC % (auto) ESR Sodium Potassium Chloride Carbon Dioxide Anion Gap BUN Creatinine Estim Creat Clear Calc 91.8 Estimated GFR > 60 > 60 Random Glucose 118 H Lactic Acid Calcium 8.9 Total Bilirubin AST ALT Alkaline Phosphatase C-Reactive Protein Total Protein Albumin Vancomycin Trough Random Vancomycin 9.7 L 10/20/24 10/20/24 10/20/24 05:46 05:46 05:46 WBC 6.0 RBC 4.40 L Hgb 12.7 L Hct 38.9 L MCV 88.4 MCH 28.9 MCHC 32.6 RDW 12.1 Plt Count 170 MPV 9.9 Immature Gran % (Auto) 0.3 Neut % (Auto) 72.8 Lymph % (Auto) 14.2 L Callahan % (Auto) 8.9 Eos % (Auto) 3.3 Baso % (Auto) 0.5 Lymph # (Auto) 0.9 L Callahan # (Auto) 0.5 Eos # (Auto) 0.2 Baso # (Auto) 0.0 Abs Immat Gran (auto) 0.02 Absolute Neuts (auto) 4.4 Absolute Nucleated RBC 0.000 Nucleated RBC % (auto) 0.0 ESR Sodium 141 Potassium 4.7 D Chloride 105 Carbon Dioxide 30 H Anion Gap 11 L BUN 13 Creatinine Cancelled 0.66 Estim Creat Clear Calc Cancelled 91.8 Estimated GFR Cancelled Random Glucose Lactic Acid Calcium Total Bilirubin AST ALT Alkaline Phosphatase C-Reactive Protein Total Protein Albumin Vancomycin Trough Random Vancomycin 10/20/24 10/20/24 05:46 09:18 WBC RBC Hgb Hct MCV MCH MCHC RDW Plt Count MPV Immature Gran % (Auto) Neut % (Auto) Lymph % (Auto) Callahan % (Auto) Eos % (Auto) Baso % (Auto) Lymph # (Auto) Callahan # (Auto) Eos # (Auto) Baso # (Auto) Abs Immat Gran (auto) Absolute Neuts (auto) Absolute Nucleated RBC Nucleated RBC % (auto) ESR Sodium Potassium Chloride Carbon Dioxide Anion Gap BUN Creatinine Estim Creat Clear Calc Estimated GFR > 60 Random Glucose 112 Lactic Acid Calcium 9.2 Total Bilirubin AST ALT Alkaline Phosphatase C-Reactive Protein Total Protein Albumin Vancomycin Trough 12.7 Random Vancomycin Airway Mallampati Class: II TM Dist: >3cm Neck ROM: Full Heart: rrr Lungs: cta Assessment and Plan Assessment Anesthesia Assessment: Anesthesia Plan Discussed and Chart Reviewed Final Anesthetic Review Family History of Problems with Anesthesia: No History of Problems with Anesthesia: No NPO: Yes ASA Class: III Final Preanesthetic Review: No Changes in Pt Med Stat, Meds/Allgs Chart Reviewed, Consent Obtained/Reviewed and Anes Risks/Benef Reviewed Patient Risk: Intermediate Procedure Risk: Low Anesthetic Plan Anesthetic Plan: MAC: Disposition: Standard PACU
--- NOTE | 2024-10-20 14:19 | P.OP_ITS ---
Operative Note Operative Note Date of Service: 10/20/24 Narrative: Operative Note Narrative: Preop diagnosis: 1. Left dorsal hand abscess Postop diagnosis: Same Procedure: 1. Left dorsal hand abscess I and D Surgeon: Bety Monzon MD [employer] Supervisor: None Anesthesia: General Anesthesia Findings: Creamy yellow purulence Implants: None Tourniquet time: 6 minutes EBL: 5.0 ml Specimen: Cultures of purulent material sent to the lab for histopathology Drains: None Complications: None Disposition: Brought to the recovery room in stable condition Plan: Admit back to the floor for IV antibiotics. Check cultures and adjust antibiotics accordingly Dressing change tomorrow, pull drain. Daily dressing changes after that. Follow-up within 5 days of discharge for wound check, suture removal and to check pathology Indications: The patient is a 74 year old man with a right dorsal hand abscess roughly over the dorsal aspect of the 1st webspace . The risks and benefits of operative treatment, including but not limited to risk of damage to blood v essels, nerves, tendons, infection, recurrence, persistent pain or numbness, incomplete resolution of preoperative symptoms, or need for further surgery were discussed with the patient and they wished to proceed with surgery. Procedure: Once consent was obtained patient was brought back to the operating suite and placed in the operating table in a supine position. Anesthesia was administered by the anesthesia team. A tourniquet was applied to the proximal aspect of the right upper extremity and the limb was prepped and draped in a standard surgical fashion. The limb was elevated and the tourniquet inflated to 250 mm of mercury for a total tourniquet time of 6 minutes. A 2 cm longitudinally oriented incision was made over the dorsal aspect of the patient's left 1st webspace centered over the apex of the abscess. The incision was made through the skin the subcutaneous tissues. I then dissected through the subcutaneous layer down to the level of the tendons and muscle bellies. We found creamy yellow purulence. Cultures were taken of the purulent material and sent for histopathology. A hemostat was used to dissect the abscess cavity. A small rongeur was used to remove some fibrinous exudate. The wound and abscess were copiously irrigated with normal saline. [ ] At this point the tourniquet was deflated and hemostasis obtained with a brief period of local pressure I performed a superficial radial nerve block with some 1% lidocaine with epinephrine.. The wound was copiously irrigated with normal saline. A strip of iodoform gauze was placed to facilitate drainage. A sterile dressing was then applied. The patient appears to have tolerated the procedure well and with no complications. All digits were well vascularized conclusion of the case.
--- NOTE | 2024-10-20 14:24 | MHC.CM.PN ---
per rounds pt to go to or today for hand surgery
[2024-10-20] MEDS: Acetaminophen 325 MG TABLET 650 MG PO (17:31)
[2024-10-20] MEDS: LORazepam 0.5 MG TABLET PO (20:00)
[2024-10-20] MEDS: Tamsulosin HCL 0.4 MG CAPSULE PO (20:00)
[2024-10-20] MEDS: Atorvastatin Calcium 40 MG TABLET PO (20:01)
[2024-10-20] MEDS: Montelukast Sodium 10 MG TABLET PO (20:01)
[2024-10-20] MEDS: vancomycin HCL 1,500 MG in 0.9 % Sodium Chloride 500 ML 333.33 MG IV (23:26)
[2024-10-21] MEDS: Lactated Ringers 1,000 ML 80 ML IVCONT ×2 (01:11→12:55)
[2024-10-21] MEDS: Ampicillin Sodium/Sulbactam Na 3 GM in 0.9 % Sodium Chloride 100 ML IV ×4 (05:31→22:27)
[2024-10-21] MEDS: Omeprazole 40 MG CAPSULE.DR PO (05:31)
[2024-10-21 07:17] VITALS: BP 129/79; PULSE 68; RESP 16; TEMP 37.1; O2SAT 95
[2024-10-21] MEDS: hydroCHLOROthiazide 12.5 MG TABLET PO (07:36)
[2024-10-21] MEDS: HYDROmorphone HCl 2 MG TABLET 1 MG PO ×2 (07:36→14:19)
[2024-10-21] MEDS: busPIRone HCl 10 MG TABLET PO ×2 (07:36→21:05)
[2024-10-21] MEDS: amLODIPine Besylate 2.5 MG TABLET PO (07:36)
[2024-10-21] MEDS: Escitalopram Oxalate 10 MG TABLET PO (07:37)
[2024-10-21] MEDS: Finasteride 5 MG TABLET PO (07:37)
[2024-10-21] MEDS: Cholecalciferol (Vitamin D3) 25 MCG TABLET PO (07:37)
--- NOTE | 2024-10-21 09:01 | PM.PNORT ---
Subjective Subjective Date of Service: 10/21/24 Interval history: POD 1 s/p I&D left hand no overnight events resting in bed states pain is improving Physical Exam Vital Signs: Vital Signs: Last Vital Signs Temp 98.7 F 10/21/24 07:17 Pulse 68 10/21/24 07:17 Resp 16 10/21/24 07:17 BP 129/79 10/21/24 07:17 Pulse Ox 95 10/21/24 07:17 O2 Del Method Room Air 10/21/24 07:17 O2 Flow Rate 10 10/20/24 15:11 BMI result Body Mass Index 23.8 Extrem: Other: left thumb incision clean dry and intact. Mild surrounding erythema no fluctulance. He is able to extend all digits and make a fist. NVI. Procedures Date of Service Date of Service: 10/21/24 Progress Note: A&P Assessment and plan (1) Abscess, hand: Status: Acute Assessment and Plan: Packing pulled today and hand re dressed with xeroform and 2x2 gauze with marcial wrap -daily dressing changes by nursing IV abx Cultures pending Pain mgmnt Hand ROM Time Spent With Patient Time: Total time managing care of this patient today ____ minutes. Quality Stroke Does the patient have a stroke diagnosis?: No VTE Prior VTE?: No VTE Risk Level:: Medical - moderate - high VTE Device Contraindication: Treatment Not Indicated VTE Drug Contraindication: N/A - Med Ordered
[2024-10-21 09:09] LABS: MANUAL DIFF FLAG NO
[2024-10-21 09:11] LABS: Basophils Percent Auto 0.5 % (0-2); Eosinophils Absolute Auto 0.1 X10*3/uL (0.0-0.4); Eosinophils Percent Auto 2.2 % (0-4); Hematocrit 38.1 % (42.0-52.0); Hemoglobin 12.5 g/dl (14.0-18.0); Imm Gran Abs Auto 0.02 X10*3/uL (0.00-0.03); Imm Gran Pct Auto 0.3 % (0.0-0.4); Lymphocytes Absolute Auto 0.8 X10*3/uL (1.2-4.9); Lymphocytes Percent Auto 13.2 % (20-40); Mean Corpuscular HGB Conc 32.8 g/dl (31.0-36.0); Mean Corpuscular Hemoglobin 28.6 pg (27.0-33.0); Mean Corpuscular Volume 87.2 fL (80.0-98.0); Mean Platelet Volume 9.6 fL (9.4-12.4); Monocytes Absolute Auto 0.4 X10*3/uL (0.1-1.2); Monocytes Percent Auto 6.7 % (2-11); Neutrophils Absolute Auto 4.9 x10*3/uL (2.0-8.3); Neutrophils Percent Auto 77.1 % (45-73); Platelet Count 181 X10*3/uL (160-400); Red Blood Count 4.37 X10*6/uL (4.60-5.80); Red Cell Distribution Width 12.1 % (11.0-16.0); White Blood Count 6.3 X10*3/uL (4.8-10.8)
[2024-10-21 09:27] LABS: Vancomycin Random 13.6 mcg/mL (15-20)
[2024-10-21 09:28] LABS: Anion Gap 11 (12-20); Blood Urea Nitrogen 13 mg/dL (9-16); Calcium 9.1 mg/dL (8.4-10.2); Carbon Dioxide 27 mmol/L (22-29); Chloride 106 mmol/L (96-108); Creatinine Clr Calc Pharmacy 91.8; Creatinine Clr Calc Pharmacy 93.2; Estimated Glomerular Filt Rate > 60; Glucose Random 132 mg/dL (60-115); Sodium 140 mmol/L (135-145)
--- NOTE | 2024-10-21 09:42 | HE.PHANOTE ---
Re: Vanco Renal function improving. Trough returned at 13.6. Pt is therapeutic, continue current dose 1500mg q12h, predicted AUC 505, predicted trough 11.5. Next trough 10/22 @ 0900.
--- NOTE | 2024-10-21 10:28 | HO.POSTANES ---
Post Anesthesia Evaluation Post Anesthesia Evaluation Date of Service: 10/21/24 Vital Signs: Vital Signs Temp Pulse Resp BP Pulse Ox O2 Del Method 10/21/24 07:17 98.7 F 68 16 129/79 95 Room Air 10/20/24 23:23 99.6 F 68 14 111/72 94 Room Air Anesthesia: General LMA Mental Status: Awake Pain Control: Satisfactory Nausea/Vomiting: None Hydration: Adequate Anesthesia-Related Issues: No Anes. Related Issues
[2024-10-21] MEDS: Enoxaparin Sodium 40 MG/0.4 ML SYRINGE SUBCUT (10:29)
[2024-10-21] MEDS: vancomycin HCL 1,500 MG in 0.9 % Sodium Chloride 500 ML 333.33 MG IV ×2 (11:08→23:54)
--- NOTE | 2024-10-21 11:58 | P.PNIM_ITS ---
Subjective Subjective Date of Service: 10/21/24 Interval History: Seen and evaluated this morning swelling and pain improved improved ROM of thumb no other overnight events Review of Systems Review of Systems: Yes all other systems are reviewed and are negative Physical Exam 2 Vital Signs: Vital Signs: Last Vital Signs Temp 98.7 F 10/21/24 07:17 Pulse 68 10/21/24 07:17 Resp 16 10/21/24 07:17 BP 129/79 10/21/24 07:17 Pulse Ox 95 10/21/24 07:17 O2 Del Method Room Air 10/21/24 07:17 O2 Flow Rate 10 10/20/24 15:11 BMI result Body Mass Index 23.8 Const: Other: Constitutional : interactive, not in distress Cardiovascular : no JVP, no lower extremity edema Respiratory : bilateral chest movement, not in resp distress Gastrointestinal: soft, lax, Non tender Skin : Warm, Dry, hand covered with dressing, able to move the thumb little more than before Neurological : Alert & oriented , No focal deficit Objective Data Active Medications Acetaminophen (Acetaminophen 325 Mg Tablet) 650 mg PO Q6H PRN PRN Reason: Pain, Mild 1-3,fever,headache Last Admin: 10/20/24 17:31 Dose: 650 mg Documented By: ROZINA Albuterol/Ipratropium (Albuterol/Iprat 2.5/0.5mg 3 Ml Ampul.Neb) 3 ml INHALE RQ4H WHILE AWAKE PRN PRN Reason: sob Amlodipine Besylate (Amlodipine Besylate 2.5 Mg Tablet) 2.5 mg PO DAILY [facility]; Protocol Last Admin: 10/21/24 07:36 Dose: 2.5 mg Documented By: ALLAN Atorvastatin Calcium (Atorvastatin Calcium 40 Mg Tablet) 40 mg PO BEDTIME [facility] Last Admin: 10/20/24 20:01 Dose: 40 mg Documented By: TARA Buspirone HCl (Buspirone Hcl 10 Mg Tablet) 10 mg PO BID [facility] Last Admin: 10/21/24 07:36 Dose: 10 mg Documented By: ALLAN Calcium Carbonate (Calcium Carbonate 750 Mg Tab.Chew) 750 mg PO Q4H PRN PRN Reason: Heartburn Enoxaparin Sodium (Enoxaparin Sodium 40 Mg/0.4 Ml Syringe) 40 mg SUBCUT Q24H [facility] Last Admin: 10/21/24 10:29 Dose: 40 mg Documented By: ALLAN Escitalopram Oxalate (Escitalopram Oxalate 10 Mg Tablet) 10 mg PO DAILY [facility] Last Admin: 10/21/24 07:37 Dose: 10 mg Documented By: ALLAN Finasteride (Finasteride 5 Mg Tablet) 5 mg PO DAILY [facility] Last Admin: 10/21/24 07:37 Dose: 5 mg Documented By: ALLAN Hydrochlorothiazide (Hydrochlorothiazide 12.5 Mg Tablet) 12.5 mg PO DAILY [facility]; Protocol Last Admin: 10/21/24 07:36 Dose: 12.5 mg Documented By: ALLAN Hydromorphone HCl (Hydromorphone Hcl 2 Mg Tablet) 1 mg PO Q4H PRN PRN Reason: Pain, Severe (Pain Scale 7-10) Last Admin: 10/21/24 07:36 Dose: 1 mg Documented By: ALLAN Vancomycin HCl 1,500 mg/ (Sodium Chloride) 500 mls @ 333.333 mls/hr IV Q12H [facility] Last Admin: 10/21/24 11:08 Dose: 333.33 mls/hr Documented By: ALLAN Lactated Ringer's (Lr) 1,000 mls @ 80 mls/hr IVCONT .[id number] [facility] Last Admin: 10/21/24 01:11 Dose: 80 mls/hr Documented By: TARA Ampicillin Sodium/Sulbactam (Sodium 3 gm/ Sodium Chloride) 100 mls @ 200 mls/hr IV Q6H [facility] Last Infusion: 10/21/24 11:08 Dose: Infused Documented By: ALLAN Lorazepam (Lorazepam 0.5 Mg Tablet) 0.5 mg PO BID PRN PRN Reason: Anxiety Last Admin: 10/20/24 20:00 Dose: 0.5 mg Documented By: TARA Magnesium Hydroxide (Milk Of Magnesia 30 Ml Oral.Susp) 30 ml PO DAILY PRN PRN Reason: Constipation Melatonin (Melatonin 3 Mg Tablet) 6 mg PO BEDTIME PRN PRN Reason: Insomnia Montelukast Sodium (Montelukast Sodium 10 Mg Tablet) 10 mg PO BEDTIME [facility] Last Admin: 10/20/24 20:01 Dose: 10 mg Documented By: TARA Naloxone HCl (Naloxone Hcl 0.4 Mg/Ml Vial) 0.04 mg IVPUSH Q5M PRN PRN Reason: Excessive sedation or RR < 8 Omeprazole (Omeprazole 40 Mg Capsule.) 40 mg PO DAILY@0630 [facility] Last Admin: 10/21/24 05:31 Dose: 40 mg Documented By: TARA Pharmacy Consult (Consult Rx Vancomycin Dosing) 1 each MISCELLANE DAILY PRN PRN Reason: Consult order Sodium Chloride (0.9 % Sodium Chloride Flush 3 Ml Syringe) 3 ml IVFLUSH QSHIFT [facility] Last Admin: 10/21/24 07:35 Dose: Not Given Documented By: ALLAN Non-Admin Reason: IV Running Tamsulosin HCl (Tamsulosin Hcl 0.4 Mg Capsule) 0.4 mg PO BEDTIME [facility] Last Admin: 10/20/24 20:00 Dose: 0.4 mg Documented By: TARA Vitamin D (Cholecalciferol (Vitamin D3) 25 Mcg Tablet) 25 mcg PO DAILY [facility] Last Admin: 10/21/24 07:37 Dose: 25 mcg Documented By: ALLAN Labs 10/21/24 09:04 10/21/24 09:04 Labs: Laboratory Results - last 24 hr 10/21/24 10/21/24 10/21/24 09:03 09:04 09:04 MCV 87.2 MCH 28.6 MCHC 32.8 RDW 12.1 Plt Count 181 MPV 9.6 Immature Gran % (Auto) 0.3 Neut % (Auto) 77.1 H Lymph % (Auto) 13.2 L [place] % (Auto) 6.7 Eos % (Auto) 2.2 Baso % (Auto) 0.5 Lymph # (Auto) 0.8 L [place] # (Auto) 0.4 Eos # (Auto) 0.1 Baso # (Auto) 0.0 Abs Immat Gran (auto) 0.02 Absolute Neuts (auto) 4.9 Absolute Nucleated RBC 0.000 Nucleated RBC % (auto) 0.0 Anion Gap 11 L Estim Creat Clear Calc 91.8 93.2 Estimated GFR > 60 Random Glucose Calcium Random Vancomycin 13.6 L 10/21/24 09:04 MCV MCH MCHC RDW Plt Count MPV Immature Gran % (Auto) Neut % (Auto) Lymph % (Auto) [place] % (Auto) Eos % (Auto) Baso % (Auto) Lymph # (Auto) [place] # (Auto) Eos # (Auto) Baso # (Auto) Abs Immat Gran (auto) Absolute Neuts (auto) Absolute Nucleated RBC Nucleated RBC % (auto) Anion Gap Estim Creat Clear Calc Estimated GFR > 60 Random Glucose 132 H Calcium 9.1 Random Vancomycin Microbiology Microbiology Results: Microbiology 10/20/24 Unknown Gram Stain - Final Hand Left Routine Culture - Preliminary Staphylococcus aureus Assessment and Plan (1) Abscess, hand: Status: Acute (2) Cellulitis of hand: Status: Acute Plan 74M PMH COPD/moderate persistent asthma, hypertension, hyperlipidemia, BPH, mood disorder presented with left hand swelling and erythema Bug bite complicated by left hand cellulitis and abscess formaiton still significantly painful and swollen Vanco trough normal Continue IV vancomycin and Unasyn Follow up culture hand surgery did I&D, continue daily dressing follow Vanco trough COPD/moderate persistent asthma Continue Singulair, inhalers BPH Continue Proscar and alpha gabriel Hypertension Continue amlodipine, HCTZ Hyperlipidemia Continue statin dvt prophylaxis- lovenox full code patient with cellulitis in high risk area (hand) requiring iv abx and surgical follow up, expected to require overnight stay inpatient Quality Stroke Does the patient have a stroke diagnosis?: No VTE Prior VTE?: No VTE Risk Level:: Medical - moderate - high VTE Device Contraindication: Treatment Not Indicated VTE Drug Contraindication: N/A - Med Ordered
[2024-10-21] MEDS: Acetaminophen 325 MG TABLET 650 MG PO (12:54)
[2024-10-21 15:25] VITALS: BP 105/59; PULSE 61; RESP 14; TEMP 37.1; O2SAT 96
--- NOTE | 2024-10-21 18:22 | PC.NURSE ---
Pt dressing to left hand CDI. Able to move fingers and make a fist
[2024-10-21] MEDS: Atorvastatin Calcium 40 MG TABLET PO (21:05)
[2024-10-21] MEDS: Tamsulosin HCL 0.4 MG CAPSULE PO (21:05)
[2024-10-21] MEDS: Montelukast Sodium 10 MG TABLET PO (21:05)
[2024-10-21] MEDS: LORazepam 0.5 MG TABLET PO (21:05)
[2024-10-21 23:22] VITALS: BP 127/76; PULSE 59; RESP 18; TEMP 36.6; O2SAT 94
[2024-10-22] MEDS: Lactated Ringers 1,000 ML 80 ML IVCONT (04:10)
[2024-10-22] MEDS: Omeprazole 40 MG CAPSULE.DR PO (06:20)
[2024-10-22] MEDS: Ampicillin Sodium/Sulbactam Na 3 GM in 0.9 % Sodium Chloride 100 ML IV ×2 (06:20→10:57)
[2024-10-22 06:48] LABS: MANUAL DIFF FLAG NO
[2024-10-22 06:53] LABS: Basophils Percent Auto 0.7 % (0-2); Eosinophils Absolute Auto 0.2 X10*3/uL (0.0-0.4); Eosinophils Percent Auto 4.4 % (0-4); Hematocrit 35.1 % (42.0-52.0); Hemoglobin 11.8 g/dl (14.0-18.0); Imm Gran Abs Auto 0.02 X10*3/uL (0.00-0.03); Imm Gran Pct Auto 0.4 % (0.0-0.4); Lymphocytes Absolute Auto 0.7 X10*3/uL (1.2-4.9); Lymphocytes Percent Auto 16.3 % (20-40); Mean Corpuscular HGB Conc 33.6 g/dl (31.0-36.0); Mean Corpuscular Hemoglobin 29.1 pg (27.0-33.0); Mean Corpuscular Volume 86.5 fL (80.0-98.0); Monocytes Absolute Auto 0.4 X10*3/uL (0.1-1.2); Monocytes Percent Auto 8.6 % (2-11); Neutrophils Absolute Auto 3.2 x10*3/uL (2.0-8.3); Neutrophils Percent Auto 69.6 % (45-73); Platelet Count 181 X10*3/uL (160-400); Red Blood Count 4.06 X10*6/uL (4.60-5.80); White Blood Count 4.6 X10*3/uL (4.8-10.8)
[2024-10-22 07:11] LABS: Anion Gap 11 (12-20); Blood Urea Nitrogen 12 mg/dL (9-16); Calcium 8.6 mg/dL (8.4-10.2); Carbon Dioxide 27 mmol/L (22-29); Chloride 107 mmol/L (96-108); Creatinine Clr Calc Pharmacy 100.9; Estimated Glomerular Filt Rate > 60; Glucose Random 102 mg/dL (60-115); Potassium 3.8 mmol/L (3.3-5.1); Sodium 141 mmol/L (135-145)
[2024-10-22 07:15] VITALS: BP 126/71; PULSE 62; RESP 12; TEMP 36.8; O2SAT 95
[2024-10-22] MEDS: Finasteride 5 MG TABLET PO (07:35)
[2024-10-22] MEDS: Escitalopram Oxalate 10 MG TABLET PO (07:35)
[2024-10-22] MEDS: Cholecalciferol (Vitamin D3) 25 MCG TABLET PO (07:35)
[2024-10-22] MEDS: hydroCHLOROthiazide 12.5 MG TABLET PO (07:36)
[2024-10-22] MEDS: busPIRone HCl 10 MG TABLET PO (07:36)
[2024-10-22] MEDS: HYDROmorphone HCl 2 MG TABLET 1 MG PO ×2 (07:36→11:55)
[2024-10-22] MEDS: amLODIPine Besylate 2.5 MG TABLET PO (07:37)
[2024-10-22] MEDS: Albuterol/Iprat 2.5/0.5MG 3 ML AMPUL.NEB INHALE (08:16)
[2024-10-22 08:23] VITALS: PULSE 66; RESP 16
--- NOTE | 2024-10-22 09:28 | MHC.CM.PN ---
Addendum entered by Anisha Parsons RN 10/22/24 11:38: Cleared for dc home. [facility] will provide SN/wound care. DC summary faxed to [facility] @ [phone] (per their website - they are not open to verify). Will transport home via Lyft. Addendum entered by Anisha Parsons RN 10/22/24 09:35: CM also discussed HCP with patient. Provided education and offered assistance. Patient declined. Original Note: Per MD potential dc today, awaiting ortho clearance. CM met with patient via [employer]. Patient reports he does not have VNA services. Goes to [facility] in [place], where there is a program RN that can perform wound care. Will need VNA for weekend dressing changes. No agency preference. Referrals sent via [employer]. Will need Lyft home. [facility] delivered.
[2024-10-22 09:34] LABS: Vancomycin Random 16.2 mcg/mL (15-20)
--- NOTE | 2024-10-22 09:41 | HE.PHANOTE ---
Re: Vanco Renal showing improvements. Trough returned at 16.2, the predicted was 11.5, pt is running 5 pts higher in trough. Dose reduced to 1250 q12h with predicted AUC 40, predicted trough 9.5. Next trough 10/23 @ 0900.
[2024-10-22] MEDS: Enoxaparin Sodium 40 MG/0.4 ML SYRINGE SUBCUT (10:56)
--- NOTE | 2024-10-22 11:13 | W.MHC.F2F ---
Service Date Service Date: 10/22/24 Encounter Date of encounter: 10/22/24 Reasons for Services Signs and symptoms assessed: Hand infection. abscess decrease thumb movement Reason for halfway: wound care (wash daily with water and soap. dry well Wound care with xeroform and 2x2 gauze with marcial wrap daily by nurse ) Reason for occupational therapy: therapeutic exercises and restore joint function Homebound: Leaving the home is medically contraindicated at this time without the asist of a device and/or another person due th the listed conditions above and below. Reason homebound: unable to drive Certification: Based on the above findings, I certify that this patient is confined to the home and needs intermittent halfway care, physical therapy and/or speech therapy, or continues to need occupational therapy. The patient is under my care, and I have initiated the establishment of the plan of care. The patient will be followed by a physician who will periodically review the plan of care. Time Spent With Patient Time: Total time managing care of this patient today ____ minutes.
--- NOTE | 2024-10-22 11:14 | P.DS_ITS ---
DS: Providers Provider Date of Service: 10/22/24 Date of admission: 10/17/24 12:56 Date of discharge: 10/22/24 Primary care physician: Niki Simmons MD Consults: 10/17/24 21:53 Consult to Wound Care Routine Reason for consultation: insect bite to left hand ?cellulitis 10/18/24 10:41 Consult to Orthopedics Routine Consulting Provider: [facility] [place] [facility] Reason for consultation: Hand infection, decrease ROM for eval and rec. DS: Diagnosis Discharge Diagnosis (1) Abscess, hand: Status: Acute (2) Cellulitis of hand: Status: Acute DS: Summary Hospital Course Hospital Course: Admission note HPI 74M PMH COPD/moderate persistent asthma, hypertension, hyperlipidemia, BPH, mood disorder presented with left hand swelling and erythema. Patient states symptoms began 3 days prior to presentation with what he believes was bug on dorsal surface between 1st and 2nd finger. He tried topical antibiotics, but over the next few days had increased swelling, erythema, pain. Denies fever or chills. Sensation remains intact. No obvious drainage. Hospital course The patient was treated for Bug bite [facility] Started on IV Vancomycin and evaluated by orthopedic who did not feel the need to intervene. Trough levels were low the first two readings so Unasyn was added but he continued to complain of significantly painful and swollen thumb base with decrease range of motion so Orthopeding evaluated him again and took him for I&D which went well. Blood cultures remained negative but he grew MSSA from the wound. pain, swelling and range of motion improved. ORthopedics cleared him for discharge with a plan for follow up in office in 1-2 weeks. To continue daily dressing on his wound. Doxycycline for 1 more week. Discharge plan wash daily with water and soap. dry well Wound care with xeroform and 2x2 gauze with marcial wrap daily by nurse Continue Doxycycline for 10 more days Dilaudid, Ibuprofen and Tylenol as needed for pain Occupational therapy follow up as outpatient. referral placed [place] [facility] [place] [facility]2 weeks for wound check Time Attestation Discharge Coordination Time (in mins): 37 Quality: Safe Use of Opioids Does Pt have an Active Cancer Diagnosis on the Problem List?: No Quality: Stroke Does the patient have a stroke diagnosis?: No Physical Exam Vital Signs: Vital Signs: Last Vital Signs Temp 98.3 F 10/22/24 07:15 Pulse 66 10/22/24 08:23 Resp 16 10/22/24 08:23 BP 126/71 10/22/24 07:15 Pulse Ox 95 10/22/24 07:15 O2 Del Method Room Air 10/22/24 07:15 O2 Flow Rate 10 10/20/24 15:11 BMI result Body Mass Index 23.8 Const: Other: Constitutional : interactive, not in distress Cardiovascular : no JVP, no lower extremity edema Respiratory : bilateral chest movement, not in resp distress Gastrointestinal: soft, lax, Non tender Skin : Warm, Dry, hand covered with dressing, able to move the thumb more than before with decreased erythema and swelling Neurological : Alert & oriented , No focal deficit DS: Data Data Completed and Pending Labs on day of discharge: Laboratory Results - last 24 hr 10/22/24 10/22/24 05:50 08:58 WBC 4.6 L RBC 4.06 L Hgb 11.8 L Hct 35.1 L MCV 86.5 MCH 29.1 MCHC 33.6 RDW 12.0 Plt Count 181 MPV 10.0 Immature Gran % (Auto) 0.4 Neut % (Auto) 69.6 Lymph % (Auto) 16.3 L [place] % (Auto) 8.6 Eos % (Auto) 4.4 H Baso % (Auto) 0.7 Lymph # (Auto) 0.7 L [place] # (Auto) 0.4 Eos # (Auto) 0.2 Baso # (Auto) 0.0 Abs Immat Gran (auto) 0.02 Absolute Neuts (auto) 3.2 Absolute Nucleated RBC 0.000 Nucleated RBC % (auto) 0.0 Sodium 141 Potassium 3.8 Chloride 107 Carbon Dioxide 27 Anion Gap 11 L BUN 12 Creatinine 0.60 Estim Creat Clear Calc 100.9 Estimated GFR > 60 Random Glucose 102 Calcium 8.6 Random Vancomycin 16.2 Preliminary micro results at discharge 10/17/24 09:58 Blood Culture - Preliminary Blood - Venous No growth after 48 hours. 10/17/24 10:00 Blood Culture - Preliminary Blood - Venous No growth after 48 hours. Imaging Chest x-ray: Radiologist's impression: ITS Impressions Hand X-Ray 10/17/24 09:39 IMPRESSION: 1. No acute bony abnormalities. 2. Dorsal soft tissue swelling. Electronically signed by: Mikey Roger MD 10/17/2024 10:36 AM EDT Discharge Plan Discharge Anticipated Discharge Date/Time: 10/22/24 10:55 Patient Disposition: Home Health Service Discharge Diagnosis: HAnd abscess and cellulitis Referrals: Ken CASTANEDA [Outside] - 3-5 Days ([facility] will call you to schedule nursing visits) Niki Ramos MD [Primary Care Provider] - 1 Week Discharge Medications: New hydromorphone 2 mg tablet 1 mg PO Q6H PRN (Reason: pain (scale score 7-10)) Qty: 14 0RF Rx Instructions: Partial Fill upon patient request. doxycycline monohydrate 100 mg capsule 100 mg PO BID Qty: 20 0RF Continued terazosin 10 mg capsule 10 mg PO BEDTIME 90 Days Qty: 90 3RF omeprazole 40 mg capsule,delayed release(DR/EC) 40 mg PO DAILY@0630 cholecalciferol (vitamin D3) 25 mcg (1,000 unit) tablet 25 mcg PO DAILY hydrochlorothiazide 12.5 mg tablet 12.5 mg PO DAILY Breztri Aerosphere 160-9-4.8 mcg/actuation HFA aerosol inhaler 2 inh INHALATION BID zolpidem 5 mg tablet 5 mg PO BEDTIME PRN (Reason: Insomnia) albuterol sulfate 90 mcg/actuation HFA aerosol inhaler 2 puff PO Q4-6H PRN (Reason: Shortness Of Breath Or Wheezing) atorvastatin 40 mg tablet 40 mg PO BEDTIME hydroxyzine HCl 25 mg tablet 25 mg PO DAILY PRN (Reason: Anxiety) escitalopram oxalate 10 mg tablet 10 mg PO DAILY buspirone 10 mg tablet 10 mg PO BID finasteride 5 mg tablet 5 mg PO DAILY 90 Days Qty: 90 1RF lorazepam 0.5 mg tablet 0.5 mg PO BID PRN (Reason: Anxiety) montelukast 10 mg tablet 10 mg PO BEDTIME ipratropium-albuterol 0.5 mg-3 mg(2.5 mg base)/3 mL solution for nebulization 3 ml inhalation Q4-6H PRN (Reason: wheezing) Qty: 180 6RF Discharge Orders: Discharge Order (Routine); Ordered 10/22/24 Ordered By: Zander Malhotra Diet: Low salt diet Activity on Discharge: As tolerated Stand Alone Forms: Patient Portal Discharge page Print Language: Tuvaluan Care Plan Goals: wash daily with water and soap. dry well Wound care with xeroform and 2x2 gauze with marcial wrap daily by nurse Continue Doxycycline for 10 more days Dilaudid, Ibuprofen and Tylenol as needed for pain Occupational therapy follow up as outpatient. referral placed [place] [facility] [place] [facility]-2 weeks for wound check Health Concerns: Hand infection and abscess Plan of Treatment: Antibiotics Orthopedic follow up Assessment: as above
[2024-10-22] MEDS: vancomycin HCL 1,250 MG in 0.9 % Sodium Chloride 250 ML 166.67 MG IV (11:55)
[2024-10-22 14:55] VITALS: BP 130/76; PULSE 68; RESP 14; TEMP 36.6; O2SAT 96
[2024-10-22] MEDS: Doxycycline Monohydrate 100 MG CAPSULE PO (15:32)
== END 2024-10-22 16:04 | disposition home health service (06) | DRG 603 ==
LOC: HO.ED 09:08 → HO.EDOVER 13:08 → HO.S3 17:13
PROVIDERS: Orthopaedic Surgery; Physician Assistant Medical; Admitting Provider Internal Medicine; Emergency Provider Emergency Medicine; PCP Internal Medicine; Visit Provider Student in an Organized Health Care Education/Training Program
PROC: 0J9K0ZZ Drainage of Left Hand Subcutaneous Tissue and Fascia, Open Approach (ICD-10-PCS; principal; 2024-10-20 14:00)
DX: L02.512 Cutaneous abscess of left hand (principal); L03.114 Cellulitis of left upper limb; S60.562A Insect bite (nonvenomous) of left hand, initial encounter; J45.40 Moderate persistent asthma, uncomplicated; J44.9 Chronic obstructive pulmonary disease, unspecified; I10 Essential (primary) hypertension; E78.5 Hyperlipidemia, unspecified; N40.0 Benign prostatic hyperplasia without lower urinary tract symptoms; Z87.891 Personal history of nicotine dependence; Z79.899 Other long term (current) drug therapy
CPT/HCPCS: 36415; 73130; 80048; 80053; 80202; 82565; 83605; 85025; 85027; 85652; 86140; 87040; 87070; 87077; 87186; 87205; 90715; 93005; 94640; 99285; J0295; J1650; J2004; J2543; J3010; J3370; J3371; J7120

== ENCOUNTER → 2024-10-17 08:47 | Outpatient (BNV) | payer OTHER, SELFPAY | PROVIDERS: Emergency Provider Emergency Medicine; PCP Internal Medicine; Visit Provider Internal Medicine | DX: L02.519 Cutaneous abscess of unspecified hand (principal); L03.119 Cellulitis of unspecified part of limb | CPT/HCPCS: 99223; 99232; 99233; 99239; G0180 ==

== ENCOUNTER → 2024-10-17 08:49 | Outpatient (BNV) | payer OTHER, SELFPAY | PROVIDERS: Emergency Provider Emergency Medicine; PCP Internal Medicine; Visit Provider Internal Medicine Cardiovascular Disease | DX: R00.0 Tachycardia, unspecified (principal) | CPT/HCPCS: 93010 ==

== ENCOUNTER → 2024-10-17 09:39 | Outpatient (BNV) | payer OTHER, SELFPAY | PROVIDERS: Emergency Provider Emergency Medicine; PCP Internal Medicine; Visit Provider Radiology Diagnostic Radiology | DX: M79.642 Pain in left hand (principal) | CPT/HCPCS: 73130 ==

== ENCOUNTER → 2024-10-17 12:56 | Outpatient (BNV) | payer OTHER, SELFPAY | PROVIDERS: Admitting Provider Internal Medicine; Emergency Provider Emergency Medicine; PCP Internal Medicine | DX: L02.512 Cutaneous abscess of left hand (principal) | CPT/HCPCS: 10060; 99222 ==

== ENCOUNTER 2024-10-25 12:22 | Outpatient (AMB) | payer OTHER, SELFPAY ==
--- NOTE | 2024-10-25 12:56 | MHC.OFFVIS ---
Vital Signs 10/25/24 13:10 Height 5 ft 6 in Weight 151 lb BMI 24.4 Intake Visit Reasons: E/B-BW-[place]owvncglo left hand abscess Intake Note: Jayesh 74 yr old right hand dominant male presents today for his left hand. Seen in ED 10/17/24 S/P left hand abscess I&D, DOS: 10/20/24. States he was seen in ED on 10/17/24 for left hand swelling and redness since 10/14/24. Patient reports that he noticed a small area of redness in his left hand. He is unsure if he was bit by an insect. He has had increased swelling and pain since he first noticed it. States he was given ABX which he is still taking. States he has little pain, numbness and tingling that he did not have before. He has a visiting nurse who is doing dressing changes 2x a week. Allergies oxycodone [From PERCOCET] Allergy (Unknown, Verified 10/25/24 13:02) HIVES HPI HPI E/N-HN-Rtzyzbplee left hand abscess: Details: Jayesh is a 74 year old right hand dominant Tristanian speaking man who presents S/P left dorsal hand abscess I&D, DOS: 10/20/24. He was seen in the ED on 10/17/24, complaining of left hand redness, pain, and swelling since 10/14/24, suspected insect bite. He was admitted to the hospital for IV Abx prior to surgery. He complains of some pain, numbness, and tingling in his hand. He does say his pain is better than it was prior to surgery. He says he has a nurse who visits to do dressing changes twice weekly. He continues to take his Abx as instructed [facility] Medical History Vitamin D deficiency Hematuria PVD (peripheral vascular disease) Esophageal dysphagia BPH loc w urin obs/LUTS Asthma HTN (hypertension) Surgical History Hx of colonoscopy History of surgery Hx of prostatectomy Family History Father No problems noted. Mother No problems noted. 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 Review of Systems Const All systems reviewed & are unremarkable except as noted in HPI and below Physical Exam Vital Signs: BMI result Body Mass Index 24.4 Const General: no acute distress and alert Orientation/consciousness: patient oriented x3 HEENT Head: Yes normocephalic and Yes atraumatic Eyes EOM: EOMs intact bilaterally Resp Effort & Inspection: normal respiratory effort and able to speak in complete sentences Cardio Jugular venous distension: no JVD Skin General skin exam: turgor normal Rashes: no rashes Neuro General: patient oriented x3 Extrem Other: The patient was alert oriented and in no acute distress The incision is healing well with no drainage or evidence of infection. Sutures removed and Steri-Strips applied His swelling & erythema has greatly improved He has an ~1.5cm healing wound over the dorsal aspect of the 1st metacarpal with good granulation tissue formation, and no visible tendon. He can make a fist and extend all his digits Full active thumb ROM Sensation is intact Cap refill is brisk Microbiology report: Routine Culture Final 10/22/24-843 Organism 1 Staphylococcus aureus Quantity 4+ S aureus M.I.C. RX --------- --- Clindamycin <=0.25 S Erythromycin >=8 R Levofloxacin <=0.12 S Oxacillin 0.5 S Penicillin-G >=0.5 R Tetracycline <=1 S Trimethoprim/Sulfamethoxazole <=10 S Psych Appearance: grossly normal Affect: normal affect Attitude: cooperative Assessment & Plan Assessment & Plan (1) Abscess of left hand: Code(s): L02.512 - Cutaneous abscess of left hand Category: Medical Plan Assessment & Plan: 1. 1. Left dorsal hand abscess, S/P I&D DOS: 10/20/24 The patient appears to be doing well post-operatively I educated him about the post-operative course I explained the signs and symptoms of infection, if the patient develops any new or worsening erythema, drainage, pain, or warmth they should contact the clinic or attend the ED. He will continue to take his Abx as instructed I discussed activity modifications, he is to lift nothing heavier than a cellphone for the next 2 weeks He will perform gentle ROM exercises at home He should avoid any underwater activities for the next 5 days He should gently massage about the incision site to reduce the risk of hypersensitivity He will follow up next week for a wound check, with myself or Lonnie Aparicioed for Bety Monzon MD by Lit Miller certified medical coder, on 10/25/24 at 1:10 PM, EST. Coding Level of Care Code Global (39419) Diagnoses Abscess of left hand L02.512
[2024-10-25 13:10] VITALS: BMI 24.4
--- OUTSIDE RECORDS SUMMARY | 2024-10-25 14:35 | XMS_ITS | Encounter Summary ---
Author Organization [employer] Address [address] [place] [address] Care Team Providers Care Advanced Developer Name Role Phone Niki Ramos MD Primary Care Provide r Encounter Details Date Type Department Care Team (Late st Contact Info) Description 07/30/2022 Abstract [facility] [address] [place] [address] Sundeep Felipe, ROBERTO [address] [place] [address] Social History Tobacco Use Types Packs/Day Years [...] on filedocumented in this encounter Care Teams Advanced Developer Relationship Specialty Start Date End Date Niki Ramos MD [address] [place] [address] PCP - General Family Medicine 03/24/18 documented as of this encounter
--- OUTSIDE RECORDS SUMMARY | 2024-10-25 14:35 | XMS_ITS | Encounter Summary ---
Author Organization [employer] Address [address] [place] [address] Care Team Providers Care Compression Molding Machine Setter Name Role Phone Niki Ramos MD Primary Care Provide r Encounter Details Date Type Department Care Team (Late st Contact Info) Description 02/19/2023 Orders Only [facility] [address] [place] [address] Janelle Jones LPN Social History Tobacco Use [...] documented as of this encounter Care Teams Compression Molding Machine Setter Relationship Specialty Start Date End Date Niki Ramos MD [address] [place] [address] PCP - General Family Medicine 03/24/18 documented as of this encounter
--- OUTSIDE RECORDS SUMMARY | 2024-10-25 14:35 | XMS_ITS | Clinical Summary ---
Author Organization [employer] Address [address] [facility] 7t [place] [address] Care Team Providers Care Copy Center Specialist Name Role Phone Niki Ramos MD [...] 5 days 30 each 06/29/20 23 Active atorvastatin (Lipitor) 40 MG tabletIndications :Essential [...] ROOM 2 each 1 05/30/20 24 Active budesonide-formot uriel (Symbicort) 160-4.5 MCG/ACT [...] bedtime for itching. 30 tablet 09/01/19 25 Active cholecalciferol (Vitamin D-3) 25 MCG (1000 UT) tabletIndications :Vitamin D deficiency Take 1 tablet (25 mcg) by mouth Once per day. 60 tablet 1 09/05/19 25 Active omeprazole (PriLOSEC) [address] capsule TAKE 1 CAPSULE BY MOUTH ONCE DAILY BEFORE MEALS 90 capsule 2 09/13/19 25 Active montelukast (Singulair) 10 MG tabletIndications :Asthma in adult, mild intermittent, uncomplicated TAKE 1 TABLET BY MOUTH ONCE DAILY AT BEDTIME 30 tablet 2 09/19/19 25 Active Active Problems Problem Noted Date Diagnosed [...] PM EST): I will refer him to environmental services specialist Allergy 07/12/2023 Dyspnea on exertion 01/12/2023 [...] Encounters Date Type Department Care Team Description 10/25/2024 Refill [facility] [address] [place] [address] Niki Ramos MD Mild intermittent asthma, unspecified whether complicated 10/17/2024 Orders Only GENERIC EXTERNAL DATA DEPARTMENT Provider, Generic External Data 09/25/2024 Orders Only [facility] [address] [place] [address] Niki Ramos MD 09/25/2024 Telephone [facility] [address] [place] [address] Niki Ramos MD Medication Question 09/16/2024 Refill [facility] [address] [place] [address] Niki Ramos MD Asthma in adult, mild intermittent, uncomplicated 09/13/2024 Orders Only [facility] External Provider, [facility] 09/12/2024 Refill [facility] [address] [place] [address] Niki Ramos MD 09/04/2024 Telephone [facility] [address] [place] [phone] Niki Ramos MD Results 09/04/2024 Orders Only GENERIC EXTERNAL DATA DEPARTMENT Provider, Generic External Data 09/01/2024 10:45 AM EST Office Visit [facility] [address] [place] [phone] Niki Ramos MD Pruritus (Primary Dx); Mood disorder ([facility]/HCC); Essential hypertension; Colon cancer screening; Benign prostatic hyperplasia with lower urinary tract symptoms, symptom details unspecified 09/01/2024 Travel 08/31/2024 Orders Only [facility] [address] [place] [phone] Niki Ramos MD Vitamin D deficiency (Primary Dx) 08/31/2024 Telephone [facility] [address] [place] [phone] Niki Ramos MD Medication Question 08/24/2024 10:00 AM EST Office Visit [facility] [address] [place] [address] Sundeep Felipe DMD from Last 3 Months [...] 09/04/2025 025, 10/04/2023, 09/29/2022, Additional history exists Lipid Panel 09/04/2029 09/04/2024, 04/0 07/2023, 09/29/2022, Additional history exists DTaP/Tdap/Td Vaccines (3 - Td or Tdap) 10/17/2034 10/17/2024, 08/12/2016 Hepatitis B Vaccines Completed 06/05/2021, 10/26/2017, 09/17/2017 [...] Lactic Acid 1.5 0.5 - 2.0 mmol/L [facility] 10/17/2024 10:0 0 AM EDT 10/17/2024 10:03 AM EDT us Generic External Data Provider LAB BLOOD ORDERAB LES Final Result [facility] [address] [place] [phone] * XR Hand 3+ Views Left (10/17/2024 9:39 AM EDT) Anatomical Region Laterality Modality Upper Extremities, Hand Left Radiogra phic Imaging 10/17/2024 9:39 AM EDT Narrative 10/17/2024 10:39 AM EDT ? [facility] ?[address] ?[place] [address] ?XRay Report ? Signed ? Patient: Che,Jayesh ?MR#: [id number] ?? 6 ? : 1950 ?Acct:[id number] ? Age/Sex: 74 / M ?ADM Date: 10/17/24 ? Loc: HO.ED ? Attending Dr: ? Ordering Physician: Hannah Blakely ?? Date of Service: 10/17/24 ?? Procedure(s): XR hand LT min 3V ?? Accession Number(s): [id number] ? cc: Niki Ramos MD; Hannah Blakely [...] DD/ 0939 ? TD/TT: 10/17/24 1018 ? Circuits Engineer: ? Procedure Note Emely, Image - 10/17/2024 [id number] [place] [address] XRay Report Signed Patient: Jayesh CheMR#: [id number] 6 : 1950Acct:[id number] Age/Sex: 74 / MADM Date: 10/17/24 Loc: HO.ED Attending Dr: Ordering Physician: Hannah Blakely Date of Service: 10/17/24 Procedure(s): XR hand LT min 3V Accession Number(s): [id number] cc: Niki Ramos MD; Hannah Blakely EXAMINATION: [...] 10/17/24 1036 DD/ 0939 TD/TT: 10/17/24 1018 Circuits Engineer: [facility] External Provider IMG XR PROCEDURES Final Result * (ABNORMAL) CBC auto differential (10/17/2024 8:18 AM EDT) Only the most recent of2 resultswithin the time period is included. White Blood Count 11.2(H) 4.8 - 10.8 X10*3/uL [facility] Red Blood Count 4.90 4.60 - 5.80 X10*6/uL [facility] Hemoglobin 14.2 14.0 - 18.0 g/dl [facility] Hematocrit 42.1 42.0 - 52.0 % [facility] Mean Corpuscular Volume 85.9 80.0 - 98.0 fL [facility] Mean Corpuscular Hemoglobin 29.0 27.0 - 33.0 pg [facility] Mean Corpuscular HGB Conc 33.7 31.0 - 36.0 g/dl [facility] Red Cell Distribution Width 12.4 11.0 - 16.0 % [facility] Platelet Count 171 160 - 400 X10*3/uL [facility] Mean Platelet Volume 9.8 9.4 - 12.4 fL [facility] Neutrophils Percent Auto 85.6(H) 45 - 73 % [facility] Imm Gran Pct Auto 0.4 0.0 - 0.4 % [facility] Lymphocytes Percent Auto 7.0(L) 20 - 40 % [facility] Monocytes Percent Auto 6.6 2 - 11 % [facility] Eosinophils Percent Auto 0.1 0 - 4 % [facility] Basophils Percent Auto 0.3 0 - 2 % [facility] NRBC Pct Auto 0.0 0.0 - 0.2 /100WBC [facility] Neutrophils Absolute Auto 9.6(H) 2.0 - 8.3 x10*3/uL [facility] Imm Gran Abs Auto 0.05(H) 0.00 - 0.03 X10*3/uL [facility] Lymphocytes Absolute Auto 0.8(L) 1.2 - 4.9 X10*3/uL [facility] Monocytes Absolute Auto 0.7 0.1 - 1.2 X10*3/uL [facility] Eosinophils Absolute Auto 0.0 0.0 - 0.4 X10*3/uL [facility] Basophils Absolute Auto 0.0 0.0 - 0.2 X10*3/uL [facility] NRBC Abs Auto 0.000 0.0 - 0.012 X10*3/uL [facility] 10/17/2024 8:18 AM EDT 10/17/2024 8:25 AM EDT Generic External Data Provider LAB BLOOD ORDERAB LES Final Result Performing Organization Address [facility] de Phone Number [facility] [address] [place] [phone] * Sed Rate by Modified Westergren (10/17/2024 8:18 AM EDT) Pathologist [facility] Erythrocyte Sedimentation Rate 8 0 - 15 MM/HR [facility] Comment:Patients with polycy themia and many hemoglobin abnormalitiesmay have depressed sed rates whereas patients with anemiamay have elevated sed rates. 10/17/2024 8:18 AM EDT 10/17/2024 9:50 AM EDT Generic External Data Provider LAB BLOOD ORDERAB LES Final Result Performing Organization Address [facility] de Phone Number [facility] [address] [place] [phone] * (ABNORMAL) C-reactive Protein (10/17/2024 8:18 AM EDT) [facility] C Reactive Protein 4.30(H) < or = 0.50 mg/dL [facility] 10/17/2024 8:18 AM EDT 10/17/2024 8:25 AM EDT Generic External Data Provider LAB BLOOD ORDERAB LES Final Result Performing Organization Address [facility] de Phone Number [facility] [address] [place] [phone] * (ABNORMAL) Comprehensive Metabolic Panel (10/17/2024 8:18 AM EDT) Only the most recent of2 resultswithin the time period is included. Pathologist [facility] Sodium 140 135 - 145 mmol/L [facility] Potassium 3.6 3.3 - 5.1 mmol/L [facility] Chloride 107 96 - 108 mmol/L [facility] Carbon Dioxide 26 22 - 29 mmol/L [facility] Anion Gap 11(L) 12 - 20 [facility] Urea Nitrogen (BUN) 15 9 - 16 mg/dL [facility] Creatinine, Serum 0.80 0.5 - 1.4 mg/dL [facility] Creatinine Clr Calc Pharmacy 75.7 [facility] Comment:eGFR (calculated fro m the MDRD study equation) and eCrCl(calculated from the Cockcroft-Gault equation) are based ondifferent parameters and may not yield comparable results.If eCrCl result is absurd, please check patient'sheight/weight. Estimated Glomerular Filt Rate >60 [facility] Comment:Chronic Kidney Disea se: Estimated GFR < 60 mL/min/1.06m1Unkbci Kidney Disease: Estimated GFR < 15 mL/min/1.73m2 Glucose 161(H) 60 - 115 mg/dL [facility] Calcium 9.6 8.4 - 10.2 mg/dL [facility] Bilirubin, Total 1.4(H) 0.0 - 1.0 mg/dL [facility] Aspartate Amino Transferase 25 5 - 37 U/L [facility] Alanine Aminotransferase 40 0 - 40 U/L [facility] Total Protein 6.9 6.5 - 8.0 g/dL [facility] Albumin Level 4.4 3.5 - 5.0 g/dL [facility] Alkaline Phosphatase 55 39 - 117 U/L [facility] 10/17/2024 8:18 AM EDT 10/17/2024 8:25 AM EDT us Generic External Data Provider LAB BLOOD ORDERAB LES Final Result [facility] [address] [place] [phone] * Stress test with myocardial perfusion (09/13/2024 9:40 AM EDT) 09/13/2024 9:40 AM EDT Narrative [facility] - 09/17/2024 11:42 AM EDT ? [facility] ?[address] ?[place] [address] ?Nuclear Medicine Report ? Signed ? Patient: Che,Jayesh ?MR#: [id number] ?? 6 ? : 1950 ?Acct:[id number] ? Age/Sex: 74 / M ?ADM Date: 09/13/24 ? Loc: HO.CARD ? Attending Dr: Ralph Lyman MD ? Ordering Physician: Ralph Lyman MD ?? Date of Service: 09/13/24 ?? Procedure(s): NM cardiolite stress test ?? Accession Number(s): [id number] ? cc: Niki Ramos MD; Ralph Lyman [...] DD/ 0940 ? TD/TT: 09/15/24 1210 ? Circuits Engineer: ? Procedure Note Emely, Image - 09/17/[address] [address] Nuclear Medicine Report Signed Patient: Luis Che#: [id number] 6 : 1950Acct:[id number] Age/Sex: 74 / MADM Date: 09/13/24 Loc: SELAM Attending Dr: Ralph Lyman MD Ordering Physician: Ralph Lyman MD Date of Service: 09/13/24 Procedure(s): WI cardiolite stress test Accession Number(s): [id number] cc: Niki Ramos MD; Ralph Lyman MD [...] 09/17/24 1139 DD/ 0940 TD/TT: 09/15/24 1210 Circuits Engineer: us [facility] External Provider CV STRE SS PROCEDURES Final Result [facility] [address] [place] [phone] * (ABNORMAL) Vitamin D, 25-Hydroxy, Total, Immunoassay (09/04/2024 7:59 AM EST) Vitamin D 25-OH Total 26.9(L) >30 ng/mL [facility] Comment:Health Based Referen ce Values*< 20 ng/mL Vimoafvgl65-47 ng/mL Insufficient> 30 ng/mL Sufficient*Leora CANDELARIA. N [...] BLOOD ORDERABLES Final Result Performing Organization Address [facility]/ZIP Co de Phone Number [facility] [address] [place] [phone] * TSH with Reflex to Free T4 (09/04/2024 7:59 AM EST) TSH reflex Free T4 1.23 0.32 - 4.0 uIU/mL [facility] Blood Venous blood specimen / Unknown 09/04/2024 7:59 AM EST 09/04/2024 11:36 AM EST us Niki Simmons MD LAB BLOOD ORDERABLES Final Result Performing Organization Address [facility] Co de Phone Number [facility] [address] [place] [phone] * (ABNORMAL) PSA, Total With Reflex to PSA, Free (09/04/2024 7:59 AM EST) PSA,Total (Free>4and<10) 10.94(H ) 0.00 - 4.00 ng/mL [facility] Comment:A Free PSA was not [...] ORDERAB LES Final Result Performing Organization Address [facility] Co de Phone Number [facility] [address] [place] [phone] * Hepatitis C Antibody with Reflex to HCV, RNA, Quantitative, Real-Time PCR (09/04/2024 7:59 AM EST) Hepatitis C Antibody Nonreactive Nonreactive [facility] Comment:Antibodies to HCV no t detected; does not exclude early acuteHCV infection. Blood Venous blood specimen / Unknown 09/04/2024 7:59 AM EST 09/04/2024 11:36 AM EST us Niki Simmons MD LAB BLOOD ORDERABLES Final Result Performing Organization Address [facility] Co de Phone Number [facility] [address] [place] [phone] * HIV-1/2 Antigen and Antibodies, Fourth Generation, with Reflexes (09/04/2024 7:59 AM EST) HIV AB/AG Nonreactive Nonreactive [facility] Comment:HIV-1 p24 Ag and/or HIV-1/HIV-2 Ab [...] BLOOD ORDERABLES Final Result Performing Organization Address [facility]/ZIP Co de Phone Number [facility] [address] [place] [address] [phone] * Hemoglobin A1c (09/04/2024 7:59 AM EST) Hemoglobin A1c 5.7 <6.0 % [facility] Comment:Hemoglobin A1C Refer ence Range Adults: 4.8 - 6.0 % Non diabetic: < 6.0 % Goal: < 7.0 %Additional Action Suggested: > 8.0 %Note: Hemoglobin A1c results are invalid for patients with abnormal amounts of HbF. Blood transfusions may impact the HbA1c concentration in the patient sample. Estimated Average Glucose 117 mg/dL [facility] Comment:eAG = Estimated ave rage glucose which is %A1C expressed asaverage glucose, using the formula of the N2X-AxrtqmwTfykfco Glucose study (ADAG), Diabetes Care, Vol.31,#8,Feb. 2007 Blood Venous blood specimen / Unknown 09/04/2024 7:59 AM EST 09/04/2024 11:36 AM EST us Niki Simmons MD LAB BLOOD ORDERABLES Final Result Performing Organization Address [facility]/ZIP Co de Phone Number [facility] [address] [place] [phone] * Lipid Panel, Standard (09/04/2024 7:59 AM EST) Triglycerides 74 <150 mg/dL [facility] Comment:Desirable Triglyceri de: less than 150 mg/dLBorderline High Triglyceride 150-199 mg/dLHigh Triglyceride: 200-499 mg/dLVery High Triglyceride: greater than or equal to 5OO mg/dL Cholesterol 106 <200 mg/dL [facility] Comment:Desirable Cholestero l: less than 200 mg/dLBorderline High Cholesterol: 200-239 mg/dLHigh Cholesterol: greater than 239 mg/dL LDL Cholesterol Calculated 47 <100 mg/dL [facility] Comment:Desirable LDL: less than 100 mg/dLNear Optimal/Above Optimal LDL: 110- 129 mg/dLBorderline High LDL: 130-159 mg/dLHigh LDL: 160-189 mg/dLVery High LDL: greater than or equal to 190 mg/dL HDL Cholesterol 45 >40 mg/dL [facility] Comment:Desirable HDL: great er than 40 mg/dL Note: This HDL assay may give artificially low results in patients with liver disease. Blood Venous blood specimen / Unknown 09/04/2024 7:59 AM EST 09/04/2024 11:36 AM EST us Niki Simmons MD LAB BLOOD ORDERABLES Final Result [facility] [address] [place] [address] [phone] * Hm Colonoscopy (03/07/2020) Historical Provider HEALTH MAINTENANCE Final Result from Last 3 Months or Most Recently Relevant to Health Maintenance Insurance [place] [place] [address] - [facility] Care Teams Copy Center Specialist Relationship Specialty Start Date End Date Niki Ramos MD [address] [place] [address] PCP - General Family Medicine 03/24/18
--- OUTSIDE RECORDS SUMMARY | 2024-10-25 14:35 | XMS_ITS | Encounter Summary ---
Author Organization [employer] Address [address] [facility] 7t [place] [address] Care Team Providers Care Floor Technician Name Role Phone Niki Ramos MD Primary Care Provide r Encounter Details Date Type Department Care Team (Late st Contact Info) Description 03/12/[address] [facility] [address] [place] [address] Provider, Yao, Social History Tobacco Use Types [...] documented as of this encounter Care Teams Floor Technician Relationship Specialty Start Date End Date Niki Ramos MD [address] [place] [address] PCP - General Family Medicine 03/24/18 documented as of this encounter
--- OUTSIDE RECORDS SUMMARY | 2024-10-25 14:35 | XMS_ITS | Encounter Summary ---
Author Organization [employer] Address [address] [facility] 7t [place] [address] Care Team Providers Care Clipper And Turner Name Role Phone Niki Ramos MD Primary Care Provide r Reason for Visit * Reason Comments Med Refill Encounter Details Date Type Department Care Team ([facility] st Contact Info) Description 10/25/2024 Refill [facility] [address] [place], [place] [phone] Niki Ramos MD [address] [place] [address] Mild intermittent asthma, unspecified whether complicated Social History Tobacco Use Types Packs/Day Years [...] as of this encounter Visit Diagnoses Diagnosis Mild intermittent asthma, unspecified whether complicated documented in this encounter Additional Health Concerns Assessment Noted Time PHQ-9 Depression Total Score: 0 10/04/19 24 9:42 AM EDT documented as of this encounter Care Teams Clipper And Turner Relationship Specialty Start Date End Date Niki Ramos MD [address] [place] [phone] PCP - General Family Medicine 03/24/18 documented as of this encounter
--- OUTSIDE RECORDS SUMMARY | 2024-10-25 14:35 | XMS_ITS | Encounter Summary ---
Author Organization [employer] Address [address] [facility] 7t [place] [address] Care Team Providers Care Tile Layer Drainage Name Role Phone Niki Ramos MD Primary Care Provide r Encounter Details Date Type Department Care Team (Latest Contact Info) Description 11/08/2018 Abstract [facility] CONVERSIONS Dental, Provider, DDS Social [...] on filedocumented in this encounter Care Teams Tile Layer Drainage Relationship Specialty Start Date End Date Niki Ramos MD [address] [place] [address] PCP - General Family Medicine 03/24/18 documented as of this encounter
--- OUTSIDE RECORDS SUMMARY | 2024-10-25 14:35 | XMS_ITS | Encounter Summary ---
Author Organization [employer] Address [address] [facility] 7t [place] [address] Care Team Providers Care Cadd Instructor Name Role Phone Niki Ramos MD Primary Care Provide r Encounter Details Date Type Department Care Team ([facility] st Contact Info) Description 05/27/2022 Abstract [facility] ADULT [facility] [address] [place] [address] Dental, Provider, DDS Social History Tobacco Use [...] on filedocumented in this encounter Care Teams Cadd Instructor Relationship Specialty Start Date End Date Niki Ramos MD [address] [place] [address] PCP - General Family Medicine 03/24/18 documented as of this encounter
--- OUTSIDE RECORDS SUMMARY | 2024-10-25 14:35 | XMS_ITS | Encounter Summary ---
Author Organization [employer] Address [address] [facility] 7t [place] [address] Care Team Providers Care Program Strategist Name Role Phone Niki Ramos MD Primary Care Provide r Encounter Details Date Type Department Care Team (Late st Contact Info) Description 06/05/2022 Abstract [facility] ADULT [facility]AL [address] [place] [address] Sundeep Felipe DMD [address] [place] [address] Social History Tobacco Use Types Packs/Day Years [...] on filedocumented in this encounter Care Teams Program Strategist Relationship Specialty Start Date End Date Niki Ramos MD [address] [place] [address] PCP - General Family Medicine 03/24/18 documented as of this encounter
--- OUTSIDE RECORDS SUMMARY | 2024-10-25 14:35 | XMS_ITS | Encounter Summary ---
Author Organization [employer] Address [address] [facility] 7t [place] [address] Care Team Providers Care Dispensary Attendant Name Role Phone Niki Ramos MD Primary Care Provide r Encounter Details Date Type Department Care Team (Latest Contact Info) Description 04/09/2022 Abstract [facility] CONVERSIONS Dental, Provider, DDS Social History [...] on filedocumented in this encounter Care Teams Dispensary Attendant Relationship Specialty Start Date End Date Niki Ramos MD [address] [place] [address] PCP - General Family Medicine 03/24/18 documented as of this encounter
--- OUTSIDE RECORDS SUMMARY | 2024-10-25 14:35 | XMS_ITS | Encounter Summary ---
Author Organization [employer] Address 75 [facility] 7t [place] [address] Care Team Providers Care Rope Making Machine Operator Name Role Phone Niki Ramos MD Primary Care Provide r Encounter Details Date Type Department Care Team (Late st Contact Info) Description 06/22/2022 Abstract [facility] ADULT [facility] [address] [place] [address] Sachin Chow, DMD [address] [place] [address] Social History Tobacco Use Types Packs/Day Years [...] on filedocumented in this encounter Care Teams Rope Making Machine Operator Relationship Specialty Start Date End Date Niki Ramos MD [address] [place] [address] PCP - General Family Medicine 03/24/18 documented as of this encounter
--- OUTSIDE RECORDS SUMMARY | 2024-10-25 14:35 | XMS_ITS | Data Portability ---
Author Organization [facility] [facility] [place] [facility] Address [address] [place] [id number] Care Team Providers Care Body Specialist Name Role Phone [facility] Referring Provider Assessment Encounter Date Assessment Date Assessment LastModified by Organization Details LastModified Time 05/20/2022 05/20/2022 I have reviewed and agree with the Assessment and Plan as documented by the Shank Inspector. I provided real -time medical direction via phone for this encounter, and was available for additional phone based assistance as needed. Patient given the opportunity to ask questions. [email or web address] Not available 05/20/2022 13:49:00 Plan of Treatment Reminders Order Date Submit Date Provider Last Modified By Organization Details Last Modified Time Details Appointments None recorded. Lab urinalysis , dipstick 2021 [email or web address] 0 [facility], [address] [place] [address], [id number] 13:53:37 culture, urine 2021 [place] [facility] (Centralized Electronic Ordering - All Locations), Patient Can Go To The Location Of Their Choice, [id number] 08:07:02 Referral None recorded. Procedures None recorded. Surgeries None recorded. Imaging None recorded. Medication Orders Levaquin 500 mg tablet 2021 [facility], [address] [place] [address], [id number], 14:01:24 Levaquin 500 mg tablet 2021 [email or web address] 0 Not available 13:53:37 Pyridium 100 mg tablet 2021 [facility], [address] [place], [place], [id number], 14:01:24 Patient TargetsNo targets recorded. Patient InstructionsNo instructions recorded. Reason for Referral None Reported. Results Created Date Observation Date Name Description Value Unit Range Abnormal Flag Note LastModifiedBy Organization Detail LastModifiedTime 05/20/2005/21/2022 URINE CULTU RE specimen description CLEAN CATCH (URINE ) Not Available [facility] (Centralized Electronic Ordering - All Locations) Patient Can Go To The Location Of Their Choice, [facility] 05/22/2022 08:06:59 05/20/2005/21/2022 URINE CULTU RE special requests NONE Not Available [facility] (Centralized Electronic Ordering - All Locations) Patient Can Go To The Location Of Their Choice, [facility] 05/22/2022 08:06:59 05/20/2005/22/2022 URINE CULTU RE culture NO GROWTH Not Available [facility] (Centralized Electronic Ordering - All Locations) Patient Can Go To The Location Of Their Choice, [facility] 05/22/2022 08:06:59 05/20/2005/22/2022 URINE CULTU RE report status FINAL 2021 Not Available [facility] (Centralized Electronic Ordering - All Locations) Patient Can Go To The Location Of Their Choice, [facility] 05/22/2022 08:06:59 05/20/2005/20/2022 urina lysis , dipst ick Leukocytes trace Not Available [facility] [address] [place] [address], [phone] 05/20/2022 13:48:42 05/20/20 22 05/20/2022 urina lysis , dipst ick Nitrite negati ve Not Available [facility] [address] [place] [address], [id number] 05/20/2022 13:48:42 05/20/20 22 05/20/2022 urina lysis , dipst ick Urobilinogen neg Not Available [facility] [address] [place] [address], [phone] 05/20/2022 13:48:42 05/20/20 22 05/20/2022 urina lysis , dipst ick Protein trace Not Available [facility] - [facility] imelda [address] [place] [address], [phone] 05/20/2022 13:48:42 05/20/20 22 05/20/2022 urina lysis , dipst ick pH 6 Not Available Main - Ins [address], [phone] 05/20/2022 13:48:42 05/20/20 22 05/20/2022 urina lysis , dipst ick Blood 50 rbc Not Available Main - [facility] [address], [phone] 05/20/2022 13:48:42 05/20/20 22 05/20/2022 urina lysis , dipst ick Specific [place] 1.010 Not Available [facility] [address] [place] [address], [phone] 05/20/2022 13:48:42 05/20/20 22 05/20/2022 urina lysis , dipst ick Ketone neg Not Available Main - [facility] [address], [phone] 05/20/2022 13:48:42 05/20/20 22 05/20/2022 urina lysis , dipst ick Bilirubin neg Not Available Main - [facility] n[facility] [address] [place] [address], [phone] 05/20/2022 13:48:42 05/20/20 22 05/20/2022 urina lysis , dipst ick Glucose neg Not Available Main - [facility] [address], [phone] 05/20/2022 13:48:42 05/20/20 22 05/20/2022 urina lysis , dipst ick Appearance sl cloudy Not Available [facility] - [facility] [address] [place] [address], [phone] 05/20/2022 13:48:42 05/20/20 22 05/20/2022 urina lysis , dipst ick Color pink Not Available Main - [facility] [address], [phone] 05/20/2022 13:48:42 Result Notes None recorded. Medical Equipment None Reported. Allergies Allergen ID Allergen Name Allergen Category Reaction Reaction Severity Criticality Documentation Date Start Date Code Code System Note Provider Name and Address Organization Details Recorded Time 1313 acetamino phen / oxycodone medicatio n Not available Not available Not available 05/20/2022 20037 3 RxNorm Michelle Sharif MD [address] [facility],[address], [place], [phone], [facility] [employer] 2 13:46:59 8126 acetamino phen medicatio n [...] Not Available Not Available No t Available [facility] 10 billion cell-200 mg sprinkle capsule [...] Details Last Updated DateTime 2 98.3 [degF] 40758.5 36 g 67 /min 96 % 96 % 18 /min 167.64 cm 98.3 [degF] 96 % 96 % 18 /min 67 /min 167.64 cm 68393.5 36 g 123 mm[Hg] 85 mm[Hg] 123 [...] Michelle Sharif MD Main - [facility] [address] [place] [phone] 05/20/2022 13:39:36 05/22/2022 12:40:50 Acute urinary tract infection 445101768 N39.0 advised to push fluids- f/u with [...] Riojas Member ID Guarantor Name 05/20/2022 1 [facility] - DOS PRIOR TO 2022 - DUAL ELIGIBLE (MEDICARE REPLACEMENT/ADV ANTAGE - HMO) Jayesh Che [id number] Jayesh Che Notes Date Note Type Note Provider Name and Address Organization Details Recorded Time 05/20/2022 text/html HPI: 72 year old, Trinidadian speaking male, reporting dysuria with penile pain [...] to process visit SEGMD: Pt interviewed w/ casing tester- only has penile pain inside when he [...] .................... .................... .................... .................... .................... .................... ...... Shank Inspector Note: Sent to a call for a pt complaining of dysuria and penile pain x 2-3 days. SC8 arrives on scene, pt is alert and oriented. Airway is patent. Pt's primary language is Trinidadian; signals intelligence analyst line used during visit. Pt complains of [...] clear, concentrated; Urine dip: results uploaded to [email or web address]. [facility] orders Levofloxacin 500mg PO and urine culture to be sent to [facility]. Pt advised to take Tylenol 500mg q 6hrs prn, increase oral hydration, and follow up with urologist. Levofloxacin administered without incident. [facility] sends script to pt's pharmacy for Levofloxacin and Pyridium. Red flags discussed. Pt has no further questions. .................... .................... .................... .................... .................... .................... .................... . Disposition: Fulfilled Michelle Sharif MD [address] [facility],[address], [place], [phone], [employer] [facility] [employer] 05/20/2022 14:33:50
--- OUTSIDE RECORDS SUMMARY | 2024-10-25 14:35 | XMS_ITS | Encounter Summary ---
Author Organization [employer] Address [address] [facility] [address] [place] [address] Care Team Providers Care Automotive Fuel Injection Servicer Name Role Phone Niki Ramos MD Primary Care Provide r Encounter Details Date Type Department Care Team (Late st Contact Info) Description 09/03/2022 Abstract [facility] [address] [place] [address] Sundeep Felipe, ROBERTO [address] [place] [address] Social History Tobacco Use Types Packs/Day Years [...] on filedocumented in this encounter Care Teams Automotive Fuel Injection Servicer Relationship Specialty Start Date End Date Niki Ramos MD [address] [place] [address] PCP - General Family Medicine 03/24/18 documented as of this encounter
== END 2024-10-25 13:28 | disposition home or self-care (01) ==
LOC: HO.HOS 12:22
PROVIDERS: PCP Internal Medicine; Visit Provider Orthopaedic Surgery
DX: L02.512 Cutaneous abscess of left hand (principal)
CPT/HCPCS: 99024

== ENCOUNTER → 2024-10-25 12:22 | Outpatient (BNVA) | payer OTHER, SELFPAY | PROVIDERS: PCP Internal Medicine; Visit Provider Orthopaedic Surgery | DX: L02.512 Cutaneous abscess of left hand (principal) | CPT/HCPCS: 99212 ==

== ENCOUNTER 2024-10-30 10:30 | Emergency (ER) | payer OTHER, SELFPAY ==
--- NOTE | ~2024-10-30 | XR_ITS ---
EXAMINATION: XR ABDOMEN KUB CLINICAL INDICATION: pain COMPARISON: Correlation made with CT abdomen and pelvis 01/04/2023. TECHNIQUE: AP view of the abdomen. FINDINGS: Bowel gas pattern is normal/nonspecific. There is no focally dilated loop. There is moderate retained fecal material seen throughout the colon and rectum. Findings suggest obstipation. There is a 1.1 cm calcification overlying the right iliac wing, uncertain etiology. This was not seen previously. There are vascular calcifications present, with splenic artery calcifications in the left upper quadrant. No organomegaly or large abdominal mass. Lung bases demonstrate tortuous aorta but are otherwise grossly clear. No acute osseous abnormality. Mild degenerative changes throughout the spine. XR/XR KUB IMPRESSION: 1. No evidence of bowel obstruction. There is moderate constipation/obstipation. 2. 1 cm calcification in the right lower quadrant, etiology unknown. Electronically signed by: Mikey Roger MD 10/30/2024 01:13 PM EDT
[2024-10-30 10:37] VITALS: BP 125/71; PULSE 94; RESP 16; TEMP 36.5; O2SAT 98; BMI 25.6
[2024-10-30 11:35] LABS: Basophils Percent Auto 0.4 % (0-2); Eosinophils Percent Auto 0.2 % (0-4); Hematocrit 39.1 % (42.0-52.0); Hemoglobin 13.1 g/dl (14.0-18.0); Imm Gran Abs Auto 0.07 X10*3/uL (0.00-0.03); Imm Gran Pct Auto 0.6 % (0.0-0.4); Lymphocytes Absolute Auto 0.6 X10*3/uL (1.2-4.9); Lymphocytes Percent Auto 5.3 % (20-40); MANUAL DIFF FLAG SCAN; Mean Corpuscular HGB Conc 33.5 g/dl (31.0-36.0); Mean Corpuscular Hemoglobin 29.4 pg (27.0-33.0); Mean Corpuscular Volume 87.7 fL (80.0-98.0); Mean Platelet Volume 9.3 fL (9.4-12.4); Monocytes Absolute Auto 0.3 X10*3/uL (0.1-1.2); Monocytes Percent Auto 2.3 % (2-11); Neutrophils Absolute Auto 10.1 x10*3/uL (2.0-8.3); Neutrophils Percent Auto 91.2 % (45-73); Platelet Count 223 X10*3/uL (160-400); Red Blood Count 4.46 X10*6/uL (4.60-5.80); SCAN SMEAR FLAG 1
[2024-10-30 11:48] LABS: Alanine Aminotransferase 101 U/L (0-40); Albumin Level 4.2 g/dL (3.5-5.0); Alkaline Phosphatase 68 U/L (39-117); Anion Gap 12 (12-20); Aspartate Amino Transferase 69 U/L (5-37); Bilirubin Total 0.4 mg/dL (0.0-1.0); Blood Urea Nitrogen 15 mg/dL (9-16); Calcium 9.1 mg/dL (8.4-10.2); Carbon Dioxide 26 mmol/L (22-29); Chloride 99 mmol/L (96-108); Creatinine Clr Calc Pharmacy 80.1; Estimated Glomerular Filt Rate > 60; Glucose Random 178 mg/dL (60-115); Sodium 133 mmol/L (135-145); Total Protein 6.8 g/dL (6.5-8.0)
[2024-10-30 12:14] LABS: SLIDE REVIEW VERIFIED
[2024-10-30 12:35] LABS: Appearance Urine Clear; Color Urine Yellow; Glucose Urine UA Negative (Negative); Leukocyte Esterase Urine Negative (Negative); Nitrite Urine Negative (Negative); Urine Blood Negative (Negative); Urine Ketones Negative (Negative); Urine Protein Negative (Neg-Trace)
--- NOTE | 2024-10-30 12:37 | ED.MALEGU ---
HPI - Male Genitourinary General Chief complaint: Urogenital-Male Stated complaint: cant use bathroom Time Seen by Provider: 10/30/24 12:05 Source: patient, RN notes reviewed, old records reviewed and anesthesiology technologist Mode of arrival: ambulatory Limitations: language barrier History of Present Illness ED Provider: Tequila JARVIS Narrative: 74-year-old male past medical history significant for hypertension, COPD, not on oxygen presents for evaluation of inability to urinate with lower abdominal pain. Patient reports he was not been able to urinate at all this morning. His last bowel movement was 5 days ago. He was recently admitted here for a hand abscess and has been prescribed Dilaudid for the pain. He reports a took a small amount today He took some milk of magnesia today but otherwise has not been on any bowel regimen. The patient has previously seen Dr. Whitley, urology for BPH. He has had a previous TURP put a recent cystoscopy in August shows inflammatory regrowth with neovascularity He complains of 8/10 abdominal pain Related Data Home Medications ?Medication ?Instructions ?Recorded ?Confirmed albuterol sulfate 90 mcg/actuation 2 puff PO Q4-6H PRN Shortness Of 08/27/20 10/17/24 aerosol inhaler Breath Or Wheezing atorvastatin 40 mg tablet 40 mg PO BEDTIME 08/27/20 10/17/24 zolpidem 5 mg tablet 5 mg PO BEDTIME PRN Insomnia 08/27/20 10/17/24 hydroxyzine HCl 25 mg tablet 25 mg PO DAILY PRN Anxiety 04/22/21 10/17/24 buspirone 10 mg tablet 10 mg PO BID anxiety 12/17/21 10/17/24 escitalopram oxalate 10 mg tablet 10 mg PO DAILY 12/17/21 10/17/24 lorazepam 0.5 mg tablet 0.5 mg PO BID PRN Anxiety 05/12/23 10/17/24 montelukast 10 mg tablet 10 mg PO BEDTIME 05/12/23 10/17/24 budesonide 160 mcg-glycopyr 9 2 inh inhalation BID 10/17/24 10/17/24 mcg-formot 4.8 mcg/actuation HFA inhaler (Breztri Aerosphere) cholecalciferol (vitamin D3) 25 25 mcg PO DAILY 10/17/24 10/17/24 mcg (1,000 unit) tablet hydrochlorothiazide 12.5 mg tablet 12.5 mg PO DAILY 10/17/24 10/17/24 omeprazole 40 mg capsule,delayed 40 mg PO DAILY@0630 10/17/24 10/17/24 release Previous Rx's ?Medication ?Instructions ?Recorded ipratropium 0.5 mg-albuterol 3 mg 3 ml inhalation Q4-6H PRN wheezing 05/05/24 (2.5 mg base)/3 mL nebulization #180 mL soln terazosin 10 mg capsule 10 mg PO BEDTIME 90 days #90 caps 05/22/24 finasteride 5 mg tablet 5 mg PO DAILY 90 days #90 tabs 06/09/24 doxycycline monohydrate 100 mg 100 mg PO BID #20 caps 10/22/24 capsule hydromorphone 2 mg tablet 1 mg (1/2 x 2 mg) PO Q6H PRN pain 10/22/24 (scale score 7-10) #14 tabs docusate sodium 250 mg capsule 250 mg PO BID PRN constipation #20 10/30/24 caps polyethylene glycol 3350 17 17 g PO DAILY 2 weeks #238 grams 10/30/24 gram/dose oral powder (Miralax) Allergies Allergy/AdvReac Type Severity Reaction Status Date / Time oxycodone [From PERCOCET] Allergy Unknown HIVES Verified 10/30/24 10:39 Review of Systems Constitutional: Constitutional: Denies body ache(s), Denies chills, Denies frequent falls and Denies headache(s) ENT: Denies headache(s) Cardiovascular: Cardiovascular: Denies chest pain Gastrointestinal: Gastrointestinal: Reports abdominal pain and Denies vomiting Genitourinary: Genitourinary: Reports oliguria, Reports difficulty urinating and Reports urinary urgency Musculoskeletal: Musculoskeletal: Denies back pain Neurologic: Denies frequent falls and Denies headache(s) [facility] Past Medical History Medical History Vitamin D deficiency Hematuria PVD (peripheral vascular disease) Esophageal dysphagia BPH loc w urin obs/LUTS Asthma HTN (hypertension) Surgical History Hx of colonoscopy History of surgery Hx of prostatectomy Family History Family History Father No problems noted. Mother No problems noted. 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 Physical Exam Vital Signs: Vital Signs: Last Vital Signs Temp 97.7 F 10/30/24 10:37 Pulse 94 10/30/24 10:37 Resp 16 10/30/24 10:37 BP 125/71 10/30/24 10:37 Pulse Ox 98 10/30/24 10:37 O2 Del Method Room Air 10/30/24 10:37 BMI result Body Mass Index 25.6 Const: General: healthy appearing, comfortable, no acute distress, alert and awake Nutritional Appearance: well nourished Orientation/consciousness: patient oriented x3 HEENT: Head: Yes normocephalic and Yes atraumatic Throat: Yes posterior oropharynx normal Eyes: Eyelids: Yes eyelids normal Conjunctivae: conjunctivae normal Sclerae: sclerae normal Corneas: corneas normal Pupils: Equal, round and reactive pupils present EOM: EOMs intact bilaterally Neck: Neck: Yes full ROM Resp: Effort & Inspection: normal respiratory effort, able to speak in complete sentences and not labored GI: Inspection: Yes distended (lower abdomen) Palpation (GI): Tenderness to palpation present (GI) in the LLQ, in the RLQ and suprapubicly, no guarding and not rigid Skin: General skin exam: elasticity normal Neuro: General: patient oriented x3 Cranial nerves: Yes Equal, round and reactive pupils present and Yes Bilaterally intact EOM present Cognition (Neuro): normal cognition Course Reevaluation(s) Reevaluation #1: Patient's urinary retention was likely multifactorial. Likely due to the significant amount of constipation he had. The catheter was able to drain about 750 cc of urine. After the bladder was emptied and the patient was given lactulose and MiraLax he had a very large bowel movement and reports his pain has resolved. The Fang catheter will be removed, as he should be able to urinate more easily. We will discharge the patient with a bowel regimen. Time: 15:31 Medications Administered Discontinued Medications Generic Name Dose Route Start Last Admin Trade Name Jacques PRN Reason Stop Dose Admin Lactulose 40 gm 10/30/24 13:33 10/30/24 13:41 Lactulose 20 Gm/30 Ml Solution PO 10/30/24 13:34 40 gm ONCE ONE Administration Polyethylene Glycol 17 gm 10/30/24 13:33 10/30/24 13:41 Polyethylene Glycol 3350 17 Gm Powd.Pack PO 10/30/24 13:34 17 gm ONCE ONE Administration Medical Decision Making Medical Decision Making [facility] Narrative: 74-year-old male presents for evaluation of inability to urinate. He has a history of BPH and urinary retention. He has had a previous TURP. I did review his recent cystoscopy. Bladder scan shows 750 cc. Plan for Fang catheter, labs, urinalysis. He also has some constipation. He was possible the Dilaudid he was prescribed this causing constipation worsening retention. We will get a KUB to evaluate for the patient reports he had 2 small bowel movements today so obstructions favored to be less likely. Differential Diagnosis Differential Diagnoses: The differential diagnosis associated with the presentation includes Urinary retention BPH Constipation Fecal impaction Lab Data [facility] Lab Attestation statement: I reviewed the patient's lab results. Mild leukocytosis to 11.0 with a mild anemia. Hemoglobin 13.1 hematocrit of 39.1 is actually slightly above his baseline. He does have a left shift. Plan for a urinalysis. He was on doxycycline for left hand abscess. He has no hand pain currently. Mild hyponatremia to 133 unclear etiology. Random glucose of 178 but no evidence of DKA 10/30/24 11:20 10/30/24 11:20 Labs: Lab Results 10/30/24 10/30/24 Range/Units 11:20 12:24 WBC 11.0 H (4.8-10.8) X10*3/uL RBC 4.46 L (4.60-5.80) X10*6/uL Hgb 13.1 L (14.0-18.0) g/dl Hct 39.1 L (42.0-52.0) % MCV 87.7 (80.0-98.0) fL MCH 29.4 (27.0-33.0) pg MCHC 33.5 (31.0-36.0) g/dl RDW 12.0 (11.0-16.0) % Plt Count 223 (160-400) X10*3/uL MPV 9.3 L (9.4-12.4) fL Immature Gran % (Auto) 0.6 H (0.0-0.4) % Neut % (Auto) 91.2 H (45-73) % Lymph % (Auto) 5.3 L (20-40) % [place] % (Auto) 2.3 (2-11) % Eos % (Auto) 0.2 (0-4) % Baso % (Auto) 0.4 (0-2) % Lymph # (Auto) 0.6 L (1.2-4.9) X10*3/uL [place] # (Auto) 0.3 (0.1-1.2) X10*3/uL Eos # (Auto) 0.0 (0.0-0.4) X10*3/uL Baso # (Auto) 0.0 (0.0-0.2) X10*3/uL Abs Immat Gran (auto) 0.07 H (0.00-0.03) X10*3/uL Absolute Neuts (auto) 10.1 H (2.0-8.3) x10*3/uL Absolute Nucleated RBC 0.000 (0.0-0.012) X10*3/uL Nucleated RBC % (auto) 0.0 (0.0-0.2) /100WBC Smear Tech's Comments VERIFIED Sodium 133 L (135-145) mmol/L Potassium 4.0 (3.3-5.1) mmol/L Chloride 99 (96-108) mmol/L Carbon Dioxide 26 (22-29) mmol/L Anion Gap 12 (12-20) BUN 15 (9-16) mg/dL Creatinine 0.73 (0.5-1.4) mg/dL Estim Creat Clear Calc 80.1 Estimated GFR > 60 Random Glucose 178 H (60-115) mg/dL Calcium 9.1 (8.4-10.2) mg/dL Total Bilirubin 0.4 (0.0-1.0) mg/dL AST 69 H (5-37) U/L ALT 101 H (0-40) U/L Alkaline Phosphatase 68 (39-117) U/L Total Protein 6.8 (6.5-8.0) g/dL Albumin 4.2 (3.5-5.0) g/dL Urine Color Yellow Urine Appearance Clear Urine pH 7.0 (5.0-9.0) Ur Specific [place] 1.010 (1.005-1.025) Urine Protein Negative (Neg-Trace) mg/dL Urine Glucose (UA) Negative (Negative) mg/dL Urine Ketones Negative (Negative) mg/dL Urine Blood Negative (Negative) Urine Nitrite Negative (Negative) Ur Leukocyte Esterase Negative (Negative) Independent Interpretation I performed an independent interpretation of an: Plain X-Ray Interpretation: Moderate constipation Radiology Impression Discussion of test interpretation with radiology: I have reviewed the radiologist's reading. Radiologist Impression: FINDINGS: Bowel gas pattern is normal/nonspecific. There is no focally dilated loop. There is moderate retained fecal material seen throughout the colon and rectum. Findings suggest obstipation. There is a 1.1 cm calcification overlying the right iliac wing, uncertain etiology. This was not seen previously. There are vascular calcifications present, with splenic artery calcifications in the left upper quadrant. No organomegaly or large abdominal mass. Lung bases demonstrate tortuous aorta but are otherwise grossly clear. No acute osseous abnormality. Mild degenerative changes throughout the spine. XR/XR KUB IMPRESSION: 1. No evidence of bowel obstruction. There is moderate constipation/obstipation. 2. 1 cm calcification in the right lower quadrant, etiology unknown. Electronically signed by: Mikey Roger MD 10/30/2024 01:13 PM EDT Discharge Plan Discharge Clinical Impression: Acute constipation, Acute urinary retention Patient Disposition: Home, Self-Care Instructions: Constipation (ED), High Fiber Diet (ED) Additional Instructions: Your urinary retention was likely in part due to the significant amount of constipation. Since your bladder was drained and you had a large bowel movement, the catheter was removed. I recommend that you continue MiraLax every night for the next 2 weeks. Take docusate sodium daily for the next week. Follow-up with your primary doctor, return for new or worsening symptoms Increase fluid and fiber intake in your diet You should stop taking the pain medication Dilaudid as soon as you can tolerate the pain because this is worsening your constipation Prescriptions: New polyethylene glycol 3350 [Miralax] 17 gram/dose powder 17 g PO DAILY 14 Days Qty: 238 0RF docusate sodium 250 mg capsule 250 mg PO BID PRN (Reason: constipation) Qty: 20 0RF No Action terazosin 10 mg capsule 10 mg PO BEDTIME 90 Days Qty: 90 3RF omeprazole 40 mg capsule,delayed release(DR/EC) 40 mg PO DAILY@0630 cholecalciferol (vitamin D3) 25 mcg (1,000 unit) tablet 25 mcg PO DAILY hydrochlorothiazide 12.5 mg tablet 12.5 mg PO DAILY Breztri Aerosphere 160-9-4.8 mcg/actuation HFA aerosol inhaler 2 inh INHALATION BID hydromorphone 2 mg tablet 1 mg PO Q6H PRN (Reason: pain (scale score 7-10)) Qty: 14 0RF Rx Instructions: Partial Fill upon patient request. doxycycline monohydrate 100 mg capsule 100 mg PO BID Qty: 20 0RF zolpidem 5 mg tablet 5 mg PO BEDTIME PRN (Reason: Insomnia) albuterol sulfate 90 mcg/actuation HFA aerosol inhaler 2 puff PO Q4-6H PRN (Reason: Shortness Of Breath Or Wheezing) atorvastatin 40 mg tablet 40 mg PO BEDTIME hydroxyzine HCl 25 mg tablet 25 mg PO DAILY PRN (Reason: Anxiety) escitalopram oxalate 10 mg tablet 10 mg PO DAILY buspirone 10 mg tablet 10 mg PO BID finasteride 5 mg tablet 5 mg PO DAILY 90 Days Qty: 90 1RF lorazepam 0.5 mg tablet 0.5 mg PO BID PRN (Reason: Anxiety) montelukast 10 mg tablet 10 mg PO BEDTIME ipratropium-albuterol 0.5 mg-3 mg(2.5 mg base)/3 mL solution for nebulization 3 ml inhalation Q4-6H PRN (Reason: wheezing) Qty: 180 6RF Print Language: Iraqi
[2024-10-30] MEDS: Lactulose 20 GM/30 ML SOLUTION 40 GM PO (13:41)
[2024-10-30] MEDS: polyethylene glycoL 3350 17 GM POWD.PACK PO (13:41)
--- OUTSIDE RECORDS SUMMARY | 2024-10-30 14:36 | XMS_ITS | Clinical Summary ---
Author Organization [employer] Address [address] [facility] [address] [place] [address] Care Team Providers Care Ambulance Officer Name Role Phone Niki Ramos MD [...] if needed (asthma). 1 each Active albuterol (2.5 MG/3ML) 0.083% nebulizer solutionIndicati [...] AT BEDTIME 30 tablet 2 025 Active albuterol (Ventolin HFA) 108 (90 Base) MCG/ACT inhalerIndicatio ns:Mild intermittent asthma, unspecified whether complicated INHALE 2 PUFFS BY MOUTH EVERY 4 TO 6 HOURS NEEDED FOR WHEEZING OR SHORTNESS OF BREATH 18 g 3 025 Active albuterol (Ventolin HFA) 108 (90 Base) MCG/ACT inhalerIndicatio ns:Mild intermittent asthma, unspecified whether complicated INHALE 2 PUFFS BY MOUTH EVERY 4 TO 6 HOURS NEEDED FOR WHEEZING OR SHORTNESS OF BREATH 18 g 3 024 2024 Discontinued Active Problems Problem Noted [...] PM EST): I will refer him to client solutions specialist Allergy 07/12/2023 Dyspnea on exertion 01/12/2023 [...] benefit from continued OP therapy, psychiatry and [facility] respite. At this time Jayesh Che meets criteria for Visit Diagnoses: Problem List Items Addressed This Visit Other Generalized anxiety disorder Patient ready to address current needs Yes Strengths- Jayesh is engaged in OP therapy and psychiatry services and in the active stage for change. PLAN: 1. Follow up with [facility]: Not recommended for follow-up 2. Patient goal is to continue OP therapy and explore additional coping mechanisms. 3. Behavioral Recommendations a. OP therapy b. Coping mechanisms- deep breathing C. 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/01/2024 Dilatation of aorta 09/17/2017 09/01/19 25 Encounters Date Type Department Care Team Description 10/30/2024 Orders Only GENERIC EXTERNAL DATA DEPARTMENT Provider, Generic External Data 10/25/2024 Refill [facility] [address] [place] [phone] Niki Ramos MD Mild intermittent asthma, unspecified whether complicated 10/17/2024 Orders Only GENERIC EXTERNAL DATA DEPARTMENT Provider, Generic External Data 09/25/2024 Orders Only [facility] [address] [place] [phone] Niki Ramos MD 09/25/2024 Telephone [facility] [address] [place] [phone] Niki Ramos MD Medication Question 09/16/2024 Refill [facility] [address] [place] [address] [phone] Niki Ramos MD Asthma in adult, mild intermittent, uncomplicated 09/13/2024 Orders Only [facility] External Provider, [facility] 09/12/2024 Refill [facility] [address] [place] [phone] Niki Ramos MD 09/04/2024 Telephone [facility] [address] [place] [phone] Niki Ramos MD Results 09/04/2024 Orders Only GENERIC EXTERNAL DATA DEPARTMENT Provider, Generic External Data 09/01/2024 10:45 AM EST Office Visit [facility] [address] [place] [phone] Niki Ramos MD Pruritus (Primary Dx); Mood disorder ([facility]/HCC); Essential hypertension; Colon cancer screening; Benign prostatic hyperplasia with lower urinary tract symptoms, symptom details unspecified 09/01/2024 Travel 08/31/2024 Orders Only [facility] [address] [place] [phone] Niki Ramos MD Vitamin D deficiency (Primary Dx) 08/31/2024 Telephone [facility] [address] [place] [address] [phone] Niki Ramos MD Medication Question 08/24/2024 10:00 AM EST Office Visit [facility] ADULT DENTAL [address] [place] [address] Sundeep Felipe DMD from Last 3 Months [...] 09/01/2024 10:17 AM EST Plan of Treatment Upcoming Encounters Date Type Department Care Team (Late st Contact Info) Description 12/05/2024 9:15 AM EDT Office Visit [facility] [address] [place] [address] Niki Ramos MD [address] [place] [address] Health Maintenance Due Date Last Done Comments [...] Procedure Name Priority Date/Time Associated Diagnosis Comments XR KUB AND UPRIGHT 2 VIEWS Routine 10/30/2024 12:50 PM EDT URINALYSIS WITH REFLEX MICROSCOPIC Routine 10/30/2024 12:24 PM EDT SLIDE REVIEW Routine 10/30/2024 11:20 AM EDT COMPREHENSIVE METABOLIC PANEL Routine 10/30/2024 11:20 AM EDT CBC WITH AUTO DIFFERENTIAL Routine 10/30/2024 11:20 AM EDT LACTIC ACID Routine 10/17/2024 10:00 AM EDT [...] Recently Relevant to Health Maintenance Results * XR KUB and Upright 2 Views (10/30/2024 12:50 PM EDT) Anatomical Region Laterality Modality Radiographic Jessika ging 10/30/2024 12:5 0 PM EDT Narrative 10/30/2024 1:16 PM EDT ? [facility] ?[address] ?[place] [address] ?XRay Report ? Signed ? Patient: Jayesh Che ?MR#: [id number] ?? 6 ? : 1950 ?Acct:[id number] ? Age/Sex: 74 / M ?ADM Date: 10/30/24 ? Loc: HO.ED ? Attending Dr: ? Ordering Physician: Donal Mandel ?? Date of Service: 10/30/24 ?? Procedure(s): XR KUB ?? Accession Number(s): [id number] ? cc: Niki Ramos MD; Donal Mandel ? EXAMINATION: ?? XR ABDOMEN KUB ? CLINICAL INDICATION: ?? pain ? COMPARISON: ?? Correlation made with CT abdomen and pelvis 01/04/2023. ? TECHNIQUE: ?? AP view of the abdomen. ? FINDINGS: ?? Bowel gas pattern is normal/nonspecific. There is no focally dilated ?? loop. There is moderate retained fecal material seen throughout the ?? colon and rectum. Findings suggest obstipation. ?? There is a 1.1 cm calcification overlying the right iliac wing, ?? uncertain etiology. This was not seen previously. ?? There are vascular calcifications present, with splenic artery ?? calcifications in the left upper quadrant. ? No organomegaly or large abdominal mass. ?? Lung bases demonstrate tortuous aorta but are otherwise grossly clear. ? No acute osseous abnormality. Mild degenerative changes throughout the ?? spine. ? XR/XR KUB ?? IMPRESSION: ?? 1. No evidence of bowel obstruction. There is moderate ?? constipation/obstipation. ?? 2. 1 cm calcification in the right lower quadrant, etiology unknown. ? Electronically signed by: ??Mikey Roger MD ??10/30/2024 01:13 PM EDT RP ? Dictated By: ?Mikey Roger MD ? Signed By: ?<Electronically signed by Mikey Roger MD in OV> ?10/30/24 1313 ? DD/ 1250 ? TD/TT: 10/30/24 1255 ? [employer]: ? Procedure Note Vik Han - 10/30/[address] [address] XRay Report Signed Patient: Jayesh CheMR#: [id number] 6 : 1950Acct:[id number] Age/Sex: 74 / MADM Date: 10/30/24 Loc: .ED Attending Dr: Ordering Physician: Donal Mandel Date of Service: 10/30/24 Procedure(s): XR KUB Accession Number(s): [id number] cc: Niki Ramos MD; Donal Mandel EXAMINATION: XR ABDOMEN KUB CLINICAL INDICATION: pain COMPARISON: Correlation made with CT abdomen and pelvis 01/04/2023. TECHNIQUE: AP view of the abdomen. FINDINGS: Bowel gas pattern is normal/nonspecific. There is no focally dilated loop. There is moderate retained fecal material seen throughout the colon and rectum. Findings suggest obstipation. There is a 1.1 cm calcification overlying the right iliac wing, uncertain etiology. This was not seen previously. There are vascular calcifications present, with splenic artery calcifications in the left upper quadrant. No organomegaly or large abdominal mass. Lung bases demonstrate tortuous aorta but are otherwise grossly clear. No acute osseous abnormality. Mild degenerative changes throughout the spine. XR/XR KUB IMPRESSION: 1. No evidence of bowel obstruction. There is moderate constipation/obstipation. 2. 1 cm calcification in the right lower quadrant, etiology unknown. Electronically signed by: Mikey Roger MD 10/30/2024 01:13 PM EDT RP Dictated By: Mikey Roger MD Signed By: <Electronically signed by Mikey Roger MD in OV> 10/30/24 1313 DD/ 1250 TD/TT: 10/30/24 1255 [employer]: [facility] External Provider IMG XR PROCEDURES Final Result * Urinalysis w/reflex microscopic (10/30/2024 12:24 PM EDT) Color Urine Yellow [facility] Appearance Urine Clear [facility] PH 7.0 5.0 - 9.0 [facility] Glucose Urine UA Negative Negative mg/dL [facility] Urine Blood Negative Negative [facility] Specific [place] - Urine 1.010 1.005 - 1.025 [facility] Urine Protein Negative Neg-Trace mg/dL [facility] Urine Ketones Negative Negative mg/dL [facility] Nitrite Urine Negative Negative [facility] Leukocyte Esterase Urine Negative Negative [facility] 10/30/2024 12:2 4 PM EDT 10/30/2024 12:29 PM EDT Narrative [facility] - 10/30/2024 12:40 PM EDT Urine, [place] Generic External Data Provider LAB URINE ORDERAB LES Final Result [facility] [address] [place] [phone] * Slide Review (10/30/2024 11:20 AM EDT) Slide Review VERIFIED [facility] 10/30/2024 11:2 0 AM EDT 10/30/2024 11:27 AM EDT us Generic External Data Provider LAB BLOOD ORDERAB LES Final Result [facility] [address] [place] [address] [phone] * (ABNORMAL) CBC auto differential (10/30/2024 11:20 AM EDT) Only the most recent of3 resultswithin the time period is included. White Blood Count 11.0(H) 4.8 - 10.8 X10*3/uL [facility] Red Blood Count 4.46(L) 4.60 - 5.80 X10*6/uL [facility] Hemoglobin 13.1(L) 14.0 - 18.0 g/dl [facility] Hematocrit 39.1(L) 42.0 - 52.0 % [facility] Mean Corpuscular Volume 87.7 80.0 - 98.0 fL [facility] Mean Corpuscular Hemoglobin 29.4 27.0 - 33.0 pg [facility] Mean Corpuscular HGB Conc 33.5 31.0 - 36.0 g/dl [facility] Red Cell Distribution Width 12.0 11.0 - 16.0 % [facility] Platelet Count 223 160 - 400 X10*3/uL [facility] Mean Platelet Volume 9.3(L) 9.4 - 12.4 fL [facility] Neutrophils Percent Auto 91.2(H) 45 - 73 % [facility] Imm Gran Pct Auto 0.6(H) 0.0 - 0.4 % [facility] Lymphocytes Percent Auto 5.3(L) 20 - 40 % [facility] Monocytes Percent Auto 2.3 2 - 11 % [facility] Eosinophils Percent Auto 0.2 0 - 4 % [facility] Basophils Percent Auto 0.4 0 - 2 % [facility] NRBC Pct Auto 0.0 0.0 - 0.2 /100WBC [facility] Neutrophils Absolute Auto 10.1(H) 2.0 - 8.3 x10*3/uL [facility] Imm Gran Abs Auto 0.07(H) 0.00 - 0.03 X10*3/uL [facility] Lymphocytes Absolute Auto 0.6(L) 1.2 - 4.9 X10*3/uL [facility] Monocytes Absolute Auto 0.3 0.1 - 1.2 X10*3/uL [facility] Eosinophils Absolute Auto 0.0 0.0 - 0.4 X10*3/uL [facility] Basophils Absolute Auto 0.0 0.0 - 0.2 X10*3/uL [facility] NRBC Abs Auto 0.000 0.0 - 0.012 X10*3/uL [facility] 10/30/2024 11:2 0 AM EDT 10/30/2024 11:27 AM EDT us Generic External Data Provider LAB BLOOD ORDERAB LES Edited Result - Final [facility] [address] [place] [address] [phone] * (ABNORMAL) Comprehensive Metabolic Panel (10/30/2024 11:20 AM EDT) Only the most recent of3 resultswithin the time period is included. Sodium 133(L) 135 - 145 mmol/L [facility] Potassium 4.0 3.3 - 5.1 mmol/L [facility] Chloride 99 96 - 108 mmol/L [facility] Carbon Dioxide 26 22 - 29 mmol/L [facility] Anion Gap 12 12 - 20 [facility] Urea Nitrogen (BUN) 15 9 - 16 mg/dL [facility] Creatinine, Serum 0.73 0.5 - 1.4 mg/dL [facility] Creatinine Clr Calc Pharmacy 80.1 [facility] Comment:eGFR (calculated fro m the MDRD study equation) and eCrCl(calculated from the Cockcroft-Gault equation) are based ondifferent parameters and may not yield comparable results.If eCrCl result is absurd, please check patient'sheight/weight. Estimated Glomerular Filt Rate >60 [facility] Comment:Chronic Kidney Disea se: Estimated GFR < 60 mL/min/1.44r5Htgptr Kidney Disease: Estimated GFR < 15 mL/min/1.73m2 Glucose 178(H) 60 - 115 mg/dL [facility] Calcium 9.1 8.4 - 10.2 mg/dL [facility] Bilirubin, Total 0.4 0.0 - 1.0 mg/dL [facility] Aspartate Amino Transferase 69(H) 5 - 37 U/L [facility] Alanine Aminotransferase 101(H) 0 - 40 U/L [facility] Total Protein 6.8 6.5 - 8.0 g/dL [facility] Albumin Level 4.2 3.5 - 5.0 g/dL [facility] Alkaline Phosphatase 68 39 - 117 U/L [facility] 10/30/2024 11:2 0 AM EDT 10/30/2024 11:27 AM EDT us Generic External Data Provider LAB BLOOD ORDERAB LES Final Result Performing Organization Address [facility] Co de Phone Number [facility] [address] [place] [phone] * Lactic Acid (10/17/2024 10:00 AM EDT) Lactic Acid 1.5 0.5 - 2.0 mmol/L [facility] 10/17/2024 10:0 0 AM EDT 10/17/2024 10:03 AM EDT us Generic External Data Provider LAB BLOOD ORDERAB LES Final Result Performing Organization Address [facility] Co de Phone Number [facility] [address] [place] [address] [phone] * XR Hand 3+ Views Left (10/17/2024 9:39 AM EDT) Anatomical Region Laterality Modality Upper Extremities, Hand Left Radiogra phic Imaging 10/17/2024 9:39 AM EDT Narrative 10/17/2024 10:39 AM EDT ? [facility] ?[address] ?[place] [address] ?XRay Report ? Signed ? Patient: Jayesh Che ?MR#: [id number] ?? 6 ? : 1950 ?Acct:[id number] ? Age/Sex: 74 / M ?ADM Date: 10/17/24 ? Loc: HO.ED ? Attending Dr: ? Ordering Physician: Hannah Blakely ?? Date of Service: 10/17/24 ?? Procedure(s): XR hand LT min 3V ?? Accession Number(s): [id number] ? cc: Niki Ramso MD; Hannah Blakely ? EXAMINATION: ?? XR [...] DD/ 0939 ? TD/TT: 10/17/24 1018 ? [employer]: ? Procedure Note Emely Image - 10/17/2024 [address] [place] [address] XRay Report Signed Patient: Jayesh CheMR#: [id number] 6 : 1950Acct:[id number] Age/Sex: 74 / MADM Date: 10/17/24 Loc: HO.ED Attending Dr: Ordering Physician: Hannah Blakely Date of Service: 10/17/24 Procedure(s): XR hand LT min 3V Accession Number(s): [id number] cc: Niki Ramos MD; Hannah Blakely EXAMINATION: [...] 10/17/24 1036 DD/ 0939 TD/TT: 10/17/24 1018 [employer]: [facility] External Provider IMG XR PROCEDURES Final Result * Sed Rate by Modified Catarinaren (10/17/2024 8:18 AM EDT) Erythrocyte Sedimentation Rate 8 0 - 15 MM/HR [facility] Comment:Patients with polycy themia and many hemoglobin abnormalitiesmay have depressed sed rates whereas patients with anemiamay have elevated sed rates. 10/17/2024 8:18 AM EDT 10/17/2024 9:50 AM EDT us Generic External Data Provider LAB BLOOD ORDERAB LES Final Result Performing Organization Address [facility] de Phone Number [facility] [address] [place] [phone] * (ABNORMAL) C-reactive Protein (10/17/2024 8:18 AM EDT) C Reactive Protein 4.30(H) < or = 0.50 mg/dL [facility] 10/17/2024 8:18 AM EDT 10/17/2024 8:25 AM EDT us Generic External Data Provider LAB BLOOD ORDERAB LES Final Result Performing Organization Address [facility] de Phone Number [facility] [address] [place] [address] [phone] * Stress test with myocardial perfusion (09/13/2024 9:40 AM EDT) 09/13/2024 9:40 AM EDT Narrative [facility] - 09/17/2024 11:42 AM EDT ? [facility] ?[address] ?[place] [address] ?Nuclear Medicine Report ? Signed ? Patient: Jayesh Che ?MR#: [id number] ?? 6 ? : 1950 ?Acct:[id number] ? Age/Sex: 74 / M ?ADM Date: 03/12/25 ? Loc: HO.CARD ? Attending Dr: Ralph Lyman MD ? Ordering Physician: Ralph Lyman MD ?? Date of Service: 09/13/24 ?? Procedure(s): NM cardiolite stress test ?? Accession Number(s): [id number] ? cc: Niki Ramos MD; Ralph Lyman [...] DD/ 0940 ? TD/TT: 09/15/24 1210 ? [employer]: ? Procedure Note Emely Image - 09/17/[address] [address] Nuclear Medicine Report Signed Patient: Luis Che#: [id number] 6 : 1950Acct:[id number] Age/Sex: 74 / MADM Date: 09/13/24 Loc: .[facility] Attending Dr: Ralph Lyman MD Ordering Physician: Ralph Lyman MD Date of Service: 09/13/24 Procedure(s): NM cardiolite stress test Accession Number(s): [id number] cc: Niki Ramos MD; Ralph Lyman MD [...] 09/17/24 1139 DD/ 0940 TD/TT: 09/15/24 1210 [employer]keeper [employer]: [facility] External Provider CV STRE SS PROCEDURES Final Result Performing Organization Address [facility] Co de Phone Number [facility] [address] [place], [place] [phone] * (ABNORMAL) Vitamin D, 25-Hydroxy, Total, Immunoassay (09/04/2024 7:59 AM EST) Vitamin D 25-OH Total 26.9(L) >30 ng/mL [facility] Comment:Health Based Referen ce Values*< 20 ng/mL Exjkahesp08-52 ng/mL Insufficient> 30 ng/mL Sufficient*Leora CANDELARIA. N [...] BLOOD ORDERABLES Final Result Performing Organization Address [facility]/ZIP Co de Phone Number [facility] [address] [place] [address] [phone] * TSH with Reflex to Free T4 (09/04/2024 7:59 AM EST) TSH reflex Free T4 1.23 0.32 - 4.0 uIU/mL [facility] Blood Venous blood specimen / Unknown 09/04/2024 7:59 AM EST 09/04/2024 11:36 AM EST us Niki Simmons MD LAB BLOOD ORDERABLES Final Result [facility] [address] [place] [phone] * (ABNORMAL) PSA, Total With Reflex to PSA, Free (09/04/2024 7:59 AM EST) Pathologist [facility] PSA,Total (Free>4and<10) 10.94(H ) 0.00 - 4.00 ng/mL [facility] Comment:A Free PSA was not [...] ORDERAB LES Final Result Performing Organization Address City/[facility]/ZIP Co de Phone Number [facility] [address] [place] [phone] * Hepatitis C Antibody with Reflex to HCV, RNA, Quantitative, Real-Time PCR (09/04/2024 7:59 AM EST) Pathologist [facility] Hepatitis C Antibody Nonreactive Nonreactive [facility] Comment:Antibodies to HCV no t detected; does not exclude early acuteHCV infection. Blood Venous blood specimen / Unknown 09/04/2024 7:59 AM EST 09/04/2024 11:36 AM EST us Niki Simmons MD LAB BLOOD ORDERABLES Final Result Performing Organization Address City/[facility]/ZIP Co de Phone Number [facility] [address] [place] [address] [phone] * HIV-1/2 Antigen and Antibodies, Fourth Generation, with Reflexes (09/04/2024 7:59 AM EST) HIV AB/AG Nonreactive Nonreactive [facility] Comment:HIV-1 p24 Ag and/or HIV-1/HIV-2 Ab not detected.A test result that is nonreactive does not exclude thepossibility of exposure to or infection with HIV-1 and/orHIV-2. Nonreactive results in this assay for individualswith prior exposure to HIV-1 and/or HIV-2 may be due toantigen and antibody levels that are below the limit ofdetection of this assay.The [employer] HIV Ag/Ab Combo assay result andsupplemental assay results should be interpreted inconjunction with the patient's clinical presentation,history and other laboratory results. If the results areinconsistent with clinical evidence, additional testing issuggested to confirm the result. Blood Venous blood specimen / Unknown 09/04/2024 7:59 AM EST 09/04/2024 11:36 AM EST us Niki Simmons MD LAB BLOOD ORDERABLES Final Result Performing Organization Address City/[facility]/ZIP Co de Phone Number [facility] [address] [place] [phone] * Hemoglobin A1c (09/04/2024 7:59 AM EST) Hemoglobin A1c 5.7 <6.0 % [facility] Comment:Hemoglobin A1C Refer ence Range Adults: 4.8 - 6.0 % Non diabetic: < 6.0 % Goal: < 7.0 %Additional Action Suggested: > 8.0 %Note: Hemoglobin A1c results are invalid for patients with abnormal amounts of HbF. Blood transfusions may impact the HbA1c concentration in the patient sample. Estimated Average Glucose 117 mg/dL [facility] Comment:eAG = Estimated ave rage glucose which is %A1C expressed asaverage glucose, using the formula of the U3S-ZknyupoBwwiown Glucose study (ADAG), Diabetes Care, Vol.31,#8,Feb. 2007 Blood Venous blood specimen / Unknown 09/04/2024 7:59 AM EST 09/04/2024 11:36 AM EST us Niki Simmons MD LAB BLOOD ORDERABLES Final Result [facility] [address] [place] [phone] * Lipid Panel, Standard (09/04/2024 7:59 AM EST) Triglycerides 74 <150 mg/dL [facility] Comment:Desirable Triglyceri de: less than 150 mg/dLBorderline High Triglyceride 150-199 mg/dLHigh Triglyceride: 200-499 mg/dLVery High Triglyceride: greater than or equal to 5OO mg/dL Cholesterol 106 <200 mg/dL [facility] Comment:Desirable Cholestero l: less than 200 mg/dLBorderline High Cholesterol: 200-239 mg/dLHigh Cholesterol: greater than 239 mg/dL LDL Cholesterol Calculated 47 <100 mg/dL [facility] Comment:Desirable LDL: less than 100 mg/dLNear Optimal/Above Optimal LDL: 110- 129 mg/dLBorderline High LDL: 130-159 mg/dLHigh LDL: 160-189 mg/dLVery High LDL: greater than or equal to 190 mg/dL HDL Cholesterol 45 >40 mg/dL [facility] Comment:Desirable HDL: great er than 40 mg/dL Note: This HDL assay may give artificially low results in patients with liver disease. Blood Venous blood specimen / Unknown 09/04/2024 7:59 AM EST 09/04/2024 11:36 AM EST us Niki Simmons MD LAB BLOOD ORDERABLES Final Result [facility] [address] [place] [address] [phone] * Hm Colonoscopy (03/07/2020) us Historical Provider HEALTH MAINTENANCE Final Result from Last 3 Months or Most Recently Relevant to Health Maintenance Insurance [facility] INTERMEDIATE OPTIONS (O D-SNP) [facility] - [facility] Care Teams Ambulance Officer Relationship Specialty Start Date End Date Niki Ramos MD [address] [place] [address] PCP - General Family Medicine 03/24/18
--- OUTSIDE RECORDS SUMMARY | 2024-10-30 14:36 | XMS_ITS | Encounter Summary ---
Author Organization [employer] Address [address] [facility] [address] [place] [address] Care Team Providers Care Acid Blower Name Role Phone Niki Ramos MD Primary Care Provide r Encounter Details Date Type Department Care Team (Latest Contact Info) Description 04/09/2022 Abstract [facility] CONVERSIONS Dental, Provider, DDS Social History [...] Description 12/05/2024 9:15 AM EDT Office Visit [facility] MEDICINE [address] [place] [address] Niki Ramos MD [address] [place] [address] documented as of this encounter Visit Diagnoses Not on filedocumented in this encounter Care Teams Acid Blower Relationship Specialty Start Date End Date Niki Ramos MD [address] [place] [address] [phone] PCP - General Family Medicine 03/24/18 documented as of this encounter
--- OUTSIDE RECORDS SUMMARY | 2024-10-30 14:36 | XMS_ITS | Encounter Summary ---
Author Organization [employer] Address [address] [facility] 7t [place] [address] Care Team Providers Care Look Out Tower Fire Watcher Name Role Phone Niki Ramos MD Primary Care Provide r Encounter Details Date Type Department Care Team (Late Contact Info) Description 02/19/2023 Orders Only [facility] [address] [place], [place] [phone] Janelle Jones LPN Social History Tobacco Use [...] Description 12/05/2024 9:15 AM EDT Office Visit [facility] [address] [place] [address] Niki Ramos MD [address] [place], [place] [phone] documented as of this encounter Visit Diagnoses Not on filedocumented in this encounter Additional Health Concerns Assessment Noted Time PHQ-9 Depression Total Score: 8 03/24/20 23 9:12 AM EDT documented as of this encounter Care Teams Look Out Tower Fire Watcher Relationship Specialty Start Date End Date Niki Ramos MD [address] [place] [phone] PCP - General Family Medicine 03/24/18 documented as of this encounter
--- OUTSIDE RECORDS SUMMARY | 2024-10-30 14:36 | XMS_ITS | Encounter Summary ---
Author Organization [employer] Address [address] [facility] 7t [place] [address] Care Team Providers Care Dry Cleaner Presser Name Role Phone Niki Ramos MD Primary Care Provide r Encounter Details Date Type Department Care Team (Late st Contact Info) Description 07/30/2022 Abstract [facility] ADULT DENTAL [address] [place] [address] Sundeep Felipe DMD [address] [place] [address] Social History Tobacco Use Types Packs/Day Years [...] Description 12/05/2024 9:15 AM EDT Office Visit [facility] MEDICINE [address] [place] [address] Niki Ramos MD [address] [place] [address] documented as of this encounter Visit Diagnoses Not on filedocumented in this encounter Care Teams Dry Cleaner Presser Relationship Specialty Start Date End Date Niki Ramos MD [address] [place] [address] PCP - General Family Medicine 03/24/18 documented as of this encounter
--- OUTSIDE RECORDS SUMMARY | 2024-10-30 14:36 | XMS_ITS | Encounter Summary ---
Author Organization [employer] Address [address] [facility] 7t [place] [address] Care Team Providers Care Hoof And Shoe Inspector Name Role Phone Niki Ramos MD Primary Care Provide r Encounter Details Date Type Department Care Team (Late Contact Info) Description 06/22/2022 Abstract [facility] ADULT DENTAL [address] [place] [address] Sachin Chow, DMD [address] [place] [address] Social History Tobacco Use Types Packs/Day Years [...] Description 12/05/2024 9:15 AM EDT Office Visit [facility] MEDICINE [address] [place] [address] Niki Ramos MD [address] [place] [address] documented as of this encounter Visit Diagnoses Not on filedocumented in this encounter Care Teams Hoof And Shoe Inspector Relationship Specialty Start Date End Date Niki Ramos MD [address] [place] [address] PCP - General Family Medicine 03/24/18 documented as of this encounter
--- OUTSIDE RECORDS SUMMARY | 2024-10-30 14:36 | XMS_ITS | Encounter Summary ---
Author Organization [employer] Address [address] [facility] 7t [place] [address] Care Team Providers Care Server Cashier Name Role Phone Niki Ramos MD Primary Care Provide r Reason for Visit * Reason Comments Med Refill Encounter Details Date Type Department Care Team ([facility] st Contact Info) Description 10/25/2024 Refill [facility] MEDICINE [address] [place], [place] [phone] Niki Ramos MD [address] [place], [place] [phone] Mild intermittent asthma, unspecified whether complicated Social [...] Description 12/05/2024 9:15 AM EDT Office Visit [facility] MEDICINE [address] [place] [address] Nkii Ramos MD [address] [place] [address] documented as of this encounter Visit Diagnoses Diagnosis Mild intermittent asthma, unspecified whether complicated documented in this encounter Additional Health Concerns Assessment Noted Time PHQ-9 Depression Total Score: 0 10/04/19 24 9:42 AM EDT documented as of this encounter Care Teams Server Cashier Relationship Specialty Start Date End Date Niki Ramos MD [address] [place] [address] [phone] PCP - General Family Medicine 03/24/18 documented as of this encounter
--- OUTSIDE RECORDS SUMMARY | 2024-10-30 14:36 | XMS_ITS | Encounter Summary ---
Author Organization [employer] Address 75 [facility] 7t [place] [address] Care Team Providers Care Embroidery Finisher Name Role Phone Niki Ramos MD Primary Care Provide r Encounter Details Date Type Department Care Team (Late st Contact Info) Description 06/05/[address] [facility] ADULT DENTAL [address] [place] [address] Sundeep Felipe DMD [address] [place] [address] Social History Tobacco Use Types Packs/Day Years [...] Description 12/05/2024 9:15 AM EDT Office Visit [facility] MEDICINE [address] [place] [address] Niki Ramos MD [address] [place] [address] documented as of this encounter Visit Diagnoses Not on filedocumented in this encounter Care Teams Embroidery Finisher Relationship Specialty Start Date End Date Niki Ramos MD [address] [place] [address] PCP - General Family Medicine 03/24/18 documented as of this encounter
--- OUTSIDE RECORDS SUMMARY | 2024-10-30 14:36 | XMS_ITS | Encounter Summary ---
Author Organization [employer] Address [address] [facility] [address] 7t [place] [address] Care Team Providers Care Elementary Supervisor Name Role Phone Niki Ramos MD Primary Care Provide r Encounter Details Date Type Department Care Team ([facility] st Contact Info) Description 10/30/2024 Orders Only GENERIC EXTERNAL DATA [...] Description 12/05/2024 9:15 AM EDT Office Visit [facility] MEDICINE [address] [place] [address] Niki Ramos MD [address] [place], [place] [phone] documented as of this encounter Procedures Procedure Name Priority Date/Time Associated Diagnosis Comments XR KUB AND UPRIGHT 2 VIEWS Routine 10/30/2024 12:50 PM EDT URINALYSIS WITH REFLEX MICROSCOPIC Routine 10/30/2024 12:24 PM EDT SLIDE REVIEW Routine 10/30/2024 11:20 AM EDT CBC WITH AUTO DIFFERENTIAL Routine 10/30/2024 11:20 AM EDT COMPREHENSIVE METABOLIC PANEL Routine 10/30/2024 11:20 AM EDT documented in this encounter Results * XR KUB and Upright 2 Views (10/30/2024 12:50 PM EDT) Anatomical Region Laterality Modality Radiographic Jessika ging 10/30/2024 12:5 0 PM EDT Narrative 10/30/2024 1:16 PM EDT ? [facility] ?[address] ?[place] [address] ?XRay Report ? Signed ? Patient: Che,Jayesh ?MR#: [id number] ?? 6 ? : 1950 ?Acct:[id number] ? Age/Sex: 74 / M ?ADM Date: 04/28/25 ? Loc: HO.ED ? Attending Dr: ? Ordering Physician: Donal Mandel ?? Date of Service: 10/30/24 ?? Procedure(s): XR KUB ?? Accession Number(s): [id number] ? cc: Nkii Ramos MD; Donal Mandel ? EXAMINATION: ?? [...] DD/ 1250 ? TD/TT: 10/30/24 1255 ? Blending Tank Helper: ? Procedure Note Vik Han - 10/30/[address] [address] XRay Report Signed Patient: Luis Che#: [id number] 6 : 1950Acct:[id number] Age/Sex: 74 / MADM Date: 10/30/24 Loc: HO.ED Attending Dr: Ordering Physician: Donal Mandel Date of Service: 10/30/24 Procedure(s): XR KUB Accession Number(s): [id number] cc: Niki Ramos MD; Donal Mandel EXAMINATION: [...] Mikey Roger MD 10/30/2024 01:13 PM EDT Dictated By: Mikey Roger MD Signed By: <Electronically signed by Mikey Roger MD in OV> 10/30/24 1313 DD/ 1250 TD/TT: 10/30/24 1255 Blending Tank Helper: [facility] External Provider IMG XR PROCEDURES Final Result * Urinalysis w/reflex microscopic (10/30/2024 12:24 PM EDT) Color Urine Yellow [facility] Appearance Urine Clear [facility] PH 7.0 5.0 - 9.0 [facility] Glucose Urine UA Negative Negative mg/dL [facility] Urine Blood Negative Negative [facility] Specific [place] - Urine 1.010 1.005 - 1.025 [facility] Urine Protein Negative Neg-Trace mg/dL [facility] Urine Ketones Negative Negative mg/dL [facility] Nitrite Urine Negative Negative [facility] Leukocyte Esterase Urine Negative Negative [facility] 10/30/2024 12:2 4 PM EDT 10/30/2024 12:29 PM EDT Narrative [facility] - 10/30/2024 12:40 PM EDT Urine, [place] us Generic External Data Provider LAB URINE ORDERAB LES Final Result Performing Organization Address [facility] Co de Phone Number [facility] [address] [place] [phone] * Slide Review (10/30/2024 11:20 AM EDT) Slide Review VERIFIED [facility] 10/30/2024 11:2 0 AM EDT 10/30/2024 11:27 AM EDT us Generic External Data Provider LAB BLOOD ORDERAB LES Final Result Performing Organization Address [facility] de Phone Number [facility] [address] [place] [phone] * (ABNORMAL) Comprehensive Metabolic Panel (10/30/2024 11:20 AM EDT) Sodium 133(L) 135 - 145 mmol/L [facility] Potassium 4.0 3.3 - 5.1 mmol/L [facility] Chloride 99 96 - 108 mmol/L [facility] Carbon Dioxide 26 22 - 29 mmol/L [facility] Anion Gap 12 12 - 20 [facility] Urea Nitrogen (BUN) 15 9 - 16 mg/dL [facility] Creatinine, Serum 0.73 0.5 - 1.4 mg/dL [facility] Creatinine Clr Calc Pharmacy 80.1 [facility] Comment:eGFR (calculated fro m the MDRD study equation) and eCrCl(calculated from the Cockcroft-Gault equation) are based ondifferent parameters and may not yield comparable results.If eCrCl result is absurd, please check patient'sheight/weight. Estimated Glomerular Filt Rate >60 [facility] Comment:Chronic Kidney Disea se: Estimated GFR < 60 mL/min/1.60d2Juihwj Kidney Disease: Estimated GFR < 15 mL/min/1.73m2 Glucose 178(H) 60 - 115 mg/dL [facility] Calcium 9.1 8.4 - 10.2 mg/dL [facility] Bilirubin, Total 0.4 0.0 - 1.0 mg/dL [facility] Aspartate Amino Transferase 69(H) 5 - 37 U/L [facility] Alanine Aminotransferase 101(H) 0 - 40 U/L [facility] Total Protein 6.8 6.5 - 8.0 g/dL [facility] Albumin Level 4.2 3.5 - 5.0 g/dL [facility] Alkaline Phosphatase 68 39 - 117 U/L [facility] 10/30/2024 11:2 0 AM EDT 10/30/2024 11:27 AM EDT us Generic External Data Provider LAB BLOOD ORDERAB LES Final Result [facility] [address] [place] [address] [phone] * (ABNORMAL) CBC auto differential (10/30/2024 11:20 AM EDT) White Blood Count 11.0(H) 4.8 - 10.8 X10*3/uL [facility] Red Blood Count 4.46(L) 4.60 - 5.80 X10*6/uL [facility] Hemoglobin 13.1(L) 14.0 - 18.0 g/dl [facility] Hematocrit 39.1(L) 42.0 - 52.0 % [facility] Mean Corpuscular Volume 87.7 80.0 - 98.0 fL [facility] Mean Corpuscular Hemoglobin 29.4 27.0 - 33.0 pg [facility] Mean Corpuscular HGB Conc 33.5 31.0 - 36.0 g/dl [facility] Red Cell Distribution Width 12.0 11.0 - 16.0 % [facility] Platelet Count 223 160 - 400 X10*3/uL [facility] Mean Platelet Volume 9.3(L) 9.4 - 12.4 fL [facility] Neutrophils Percent Auto 91.2(H) 45 - 73 % [facility] Imm Gran Pct Auto 0.6(H) 0.0 - 0.4 % [facility] Lymphocytes Percent Auto 5.3(L) 20 - 40 % [facility] Monocytes Percent Auto 2.3 2 - 11 % [facility] Eosinophils Percent Auto 0.2 0 - 4 % [facility] Basophils Percent Auto 0.4 0 - 2 % [facility] NRBC Pct Auto 0.0 0.0 - 0.2 /100WBC [facility] Neutrophils Absolute Auto 10.1(H) 2.0 - 8.3 x10*3/uL [facility] Imm Gran Abs Auto 0.07(H) 0.00 - 0.03 X10*3/uL [facility] Lymphocytes Absolute Auto 0.6(L) 1.2 - 4.9 X10*3/uL [facility] Monocytes Absolute Auto 0.3 0.1 - 1.2 X10*3/uL [facility] Eosinophils Absolute Auto 0.0 0.0 - 0.4 X10*3/uL [facility] Basophils Absolute Auto 0.0 0.0 - 0.2 X10*3/uL [facility] NRBC Abs Auto 0.000 0.0 - 0.012 X10*3/uL [facility] 10/30/2024 11:2 0 AM EDT 10/30/2024 11:27 AM EDT us Generic External Data Provider LAB BLOOD ORDERAB LES Edited Result - Final [facility] [address] [place] [phone] [phone] documented in this encounter Visit Diagnoses Not on filedocumented in this encounter Additional Health Concerns Assessment Noted Time PHQ-9 Depression Total Score: 0 10/04/19 24 9:42 AM EDT documented as of this encounter Care Teams Elementary Supervisor Relationship Specialty Start Date End Date Niki Ramos MD [address] [place] [address] PCP - General Family Medicine 03/24/18 documented as of this encounter
--- OUTSIDE RECORDS SUMMARY | 2024-10-30 14:36 | XMS_ITS | Encounter Summary ---
Author Organization [employer] Address [address] [facility] 7t [place] [address] Care Team Providers Care Pad Machine Feeder Name Role Phone Niki Ramos MD Primary Care Provide r Encounter Details Date Type Department Care Team (Late st Contact Info) Description 09/03/2022 Abstract [facility] ADULT DENTAL [address] [place] [address] Sundeep Felipe DMD [address] [place] [address] Social History Tobacco Use Types Packs/Day Years [...] Description 12/05/2024 9:15 AM EDT Office Visit [facility] MEDICINE [address] [place] [address] Niki Ramos MD [address] [place] [address] documented as of this encounter Visit Diagnoses Not on filedocumented in this encounter Care Teams Pad Machine Feeder Relationship Specialty Start Date End Date Niki Ramos MD [address] [place] [address] PCP - General Family Medicine 03/24/18 documented as of this encounter
--- OUTSIDE RECORDS SUMMARY | 2024-10-30 14:36 | XMS_ITS | Encounter Summary ---
Author Organization [employer] Address [address] [facility] 7t [place] [address] Care Team Providers Care Commercial Sales Specialist Name Role Phone Niki Ramos MD Primary Care Provide r Encounter Details Date Type Department Care Team (Latest Contact Info) Description 11/08/2018 Abstract [facility] CON[facility] Dental, Provider, DDS Social History [...] 9:15 AM EDT Office Visit [facility] MEDICINE [address] [place] [address] Niki Ramos MD [address] [place] [address] documented as of this encounter Visit Diagnoses Not on filedocumented in this encounter Care Teams Commercial Sales Specialist Relationship Specialty Start Date End Date Niki Ramos MD [address] [place], [place] [phone] PCP - General Family Medicine 03/24/18 documented as of this encounter
--- OUTSIDE RECORDS SUMMARY | 2024-10-30 14:36 | XMS_ITS | Data Portability ---
Author Organization [employer] [place] [facility] Address [address] [place] [phone] Care Team Providers Care Air Route Traffic Controller Name Role Phone [facility] Referring Provider [phone] Assessment Encounter Date Assessment Date Assessment LastModified by Organization Details LastModified Time 05/20/2022 05/20/2022 I have reviewed and agree with the Assessment and Plan as documented by the Cable Placer. I provided real -time medical direction via phone for this encounter, and was available for additional phone based assistance as needed. Patient given the opportunity to ask questions. [email or web address] Not available 05/20/2022 13:49:00 Plan of Treatment Reminders Order Date Submit Date Provider Last Modified By Organization Details Last Modified Time Details Appointments None recorded. Lab urinalysis , dipstick 2021 [email or web address] 0 [facility], [address] [place] [address], [phone] 13:53:37 culture, urine 2021 [place] [facility] (Centralized Electronic Ordering - All Locations), Patient Can Go To The Location Of Their Choice, [id number] 08:07:02 Referral None recorded. Procedures None recorded. Surgeries None recorded. Imaging None recorded. Medication Orders Levaquin 500 mg tablet 2021 [facility], [address] [place] [address], [id number], 14:01:24 Levaquin 500 mg tablet 2021 [email or web address] 0 Not available 13:53:37 Pyridium 100 mg tablet 2021 [facility], [address] [place], [place], [phone], 14:01:24 Patient TargetsNo targets recorded. Patient InstructionsNo instructions recorded. Reason for Referral None Reported. Results Created Date Observation Date Name Description Value Unit Range Abnormal Flag Note LastModifiedBy Organization Detail LastModifiedTime 05/20/2005/21/2022 URINE CULTU RE specimen description CLEAN CATCH (URINE ) Not Available [facility] (Centralized Electronic Ordering - All Locations) Patient Can Go To The Location Of Their Choice, [facility] 05/22/2022 08:06:59 05/20/2005/21/2022 URINE CULTU RE special requests NONE Not Available [facility] (Centralized Electronic Ordering - All Locations) Patient Can Go To The Location Of Their Choice, [facility] 05/22/2022 08:06:59 05/20/2005/22/2022 URINE CULTU RE culture NO GROWTH Not Available [facility] (Centralized Electronic Ordering - All Locations) Patient Can Go To The Location Of Their Choice, [facility] 05/22/2022 08:06:59 05/20/2005/22/2022 URINE CULTU RE report status FINAL 2021 Not Available [facility] (Centralized Electronic Ordering - All Locations) Patient Can Go To The Location Of Their Choice, [facility] 05/22/2022 08:06:59 05/20/2005/20/2022 urina lysis , dipst ick Leukocytes trace Not Available [facility] [address] [place] [address], [phone] 05/20/2022 13:48:42 05/20/20 22 05/20/2022 urina lysis , dipst ick Nitrite negati ve Not Available [facility] [address] [place] [address], [phone] 05/20/2022 13:48:42 05/20/20 22 05/20/2022 urina lysis , dipst ick Urobilinogen neg Not Available [facility] [address] [place] [address], [phone] 05/20/2022 13:48:42 05/20/20 22 05/20/2022 urina lysis , dipst ick Protein trace Not Available [facility] - [facility] imel[facility] [address] [place] [address], [phone] 05/20/2022 13:48:42 05/20/20 22 05/20/2022 urina lysis , dipst ick pH 6 Not Available [facility] - [facility] [address], [phone] 05/20/2022 13:48:42 05/20/20 22 05/20/2022 urina lysis , dipst ick Blood 50 rbc Not Available [facility] - [facility] [address], [phone] 05/20/2022 13:48:42 05/20/20 22 05/20/2022 urina lysis , dipst ick Specific Texline 1.010 Not Available [facility] [address] [place] [address], [phone] 05/20/2022 13:48:42 05/20/20 22 05/20/2022 urina lysis , dipst ick Ketone neg Not Available [facility] - [facility] [address], [phone] 05/20/2022 13:48:42 05/20/20 22 05/20/2022 urina lysis , dipst ick Bilirubin neg Not Available [facility] - [facility] n[facility] [address] [place] [address], [phone] 05/20/2022 13:48:42 05/20/20 22 05/20/2022 urina lysis , dipst ick Glucose neg Not Available [facility] - [facility] [address], [phone] 05/20/2022 13:48:42 05/20/20 22 05/20/2022 urina lysis , dipst ick Appearance sl cloudy Not Available [facility] [address] [place] [address], [phone] 05/20/2022 13:48:42 05/20/20 22 05/20/2022 urina lysis , dipst ick Color pink Not Available [facility] - [facility] [address], [address] 05/20/2022 13:48:42 Result Notes None recorded. Medical Equipment None Reported. Allergies Allergen ID Allergen Name Allergen Category Reaction Reaction Severity Criticality Documentation Date Start Date Code Code System Note Provider Name and Address Organization Details Recorded Time 1313 acetamino phen / oxycodone medicatio n Not available Not available Not available 05/20/2022 79228 3 RxNorm Michelle Sharif MD [address] [facility],[address], [place], [phone], [facility] [place] 2 13:46:59 8126 acetamino phen medicatio n [...] Not Available Not Available No t Available [facility] 10 billion cell-200 mg sprinkle capsule [...] Details Last Updated DateTime 2 98.3 [degF] 46177.5 36 g 67 /min 96 % 96 % 18 /min 167.64 cm 98.3 [degF] 96 % 96 % 18 /min 67 /min 167.64 cm 09525.5 36 g 123 mm[Hg] 85 mm[Hg] 123 [...] Michelle Sharif MD Main - [facility] [address] [place] [phone] 05/20/2022 13:39:36 05/22/2022 12:40:50 Acute urinary tract infection 706311898 N39.0 advised to push fluids- f/u with [...] Guarantor Name 05/20/2022 1 [facility] - DOS PRIOR TO 2022 - DUAL ELIGIBLE (MEDICARE REPLACEMENT/ADV ANTAGE - HMO) Jayesh Che [id number] Jayesh Che Notes Date Note Type Note Provider Name and Address Organization Details Recorded Time 05/20/2022 text/html HPI: 72 year old, Luxembourger speaking male, reporting dysuria with penile pain [...] to process visit SEGMD: Pt interviewed w/ computer networking instructor- only has penile pain inside when he [...] .................... .................... .................... .................... .................... .................... ...... Cable Placer Note: Sent to a call for a pt complaining of dysuria and penile pain x 2-3 days. SC8 arrives on scene, pt is alert and oriented. Airway is patent. Pt's primary language is Luxembourger; manager manufacturing line used during visit. Pt complains of [...] clear, concentrated; Urine dip: results uploaded to [employer]. [facility] orders Levofloxacin 500mg PO and urine culture to be sent to [facility]. Pt advised to take Tylenol 500mg q 6hrs prn, increase oral hydration, and follow up with urologist. Levofloxacin administered without incident. [facility] sends script to pt's pharmacy for Levofloxacin and Pyridium. Red flags discussed. Pt has no further questions. .................... .................... .................... .................... .................... .................... .................... . Disposition: Fulfilled Michelle Sharif MD [address] [facility],[address], [place], [phone], [facility] [place] 05/20/2022 14:33:50
--- OUTSIDE RECORDS SUMMARY | 2024-10-30 14:36 | XMS_ITS | Encounter Summary ---
Author Organization [employer] Address [address] [facility] 7t [place] [address] Care Team Providers Care Certified Ophthalmic Medical Technician Name Role Phone Niki Ramos MD Primary Care Provide r Encounter Details Date Type Department Care Team (Late Contact Info) Description 03/12/2023 Orders Only [facility] MEDICINE [address] [place] [phone] ProviderYao MD Social History Tobacco Use Types Packs/Day Years [...] Description 12/05/2024 9:15 AM EDT Office Visit [facility] MEDICINE [address] [place] [address] [phone] Niki Ramos MD [address] [place] [phone] documented as of this encounter Procedures Procedure [...] documented as of this encounter Care Teams Certified Ophthalmic Medical Technician Relationship Specialty Start Date End Date Niki Ramos MD [address] [place] [phone] PCP - General Family Medicine 03/24/18 documented as of this encounter
--- OUTSIDE RECORDS SUMMARY | 2024-10-30 14:36 | XMS_ITS | Encounter Summary ---
Author Organization [employer] Address [address] [facility] 7t [place] [address] Care Team Providers Care Chimney Repairer Name Role Phone Niki Ramos MD Primary Care Provide r Encounter Details Date Type Department Care Team (Late st Contact Info) Description 05/27/2022 Abstract [facility] ADULT DENTAL [address] [place] [address] Dental, Provider, DDS Social History Tobacco Use [...] Description 12/05/2024 9:15 AM EDT Office Visit [facility] MEDICINE [address] [place] [address] Niki Ramos MD [address] [place] [address] documented as of this encounter Procedures Procedure [...] on filedocumented in this encounter Care Teams Chimney Repairer Relationship Specialty Start Date End Date Niki Ramos MD [address] [place] [id number] PCP - General Family Medicine 03/24/18 documented as of this encounter
[2024-10-30 15:40] VITALS: BP 118/72; PULSE 74; RESP 14; TEMP 36.4; O2SAT 96
--- NOTE | 2024-10-30 16:21 | PC.NURSE ---
Back charting, pt brought into room d/t urinary retention, garner placed on arrival, 700 clear yellow urine output right away. Pt also constipated, given bowel medications with good effect. Pt tolerating PO intake. Pt garner removed prior to DC. Tolerated well.
[2024-10-30 16:22] VITALS: BP 126/70; PULSE 82; RESP 16; TEMP 36.4; O2SAT 98
== END 2024-10-30 16:23 | disposition home or self-care (01) ==
PROVIDERS: Emergency Provider Emergency Medicine Emergency Medical Services; PCP Internal Medicine
DX: K59.00 Constipation, unspecified (principal); R33.9 Retention of urine, unspecified; I10 Essential (primary) hypertension; J44.9 Chronic obstructive pulmonary disease, unspecified; Z79.899 Other long term (current) drug therapy; Z87.891 Personal history of nicotine dependence
CPT/HCPCS: 36415; 51702; 51798; 74018; 80053; 81003; 85025; 99283; 99285

== ENCOUNTER → 2024-10-30 12:29 | Outpatient (BNV) | payer OTHER, SELFPAY | PROVIDERS: Emergency Provider Emergency Medicine Emergency Medical Services; PCP Internal Medicine; Visit Provider Radiology Diagnostic Radiology | DX: K59.00 Constipation, unspecified (principal) | CPT/HCPCS: 74018 ==

== ENCOUNTER 2024-11-01 08:57 | Outpatient (AMB) | payer OTHER, SELFPAY ==
--- NOTE | 2024-11-01 09:00 | A.OFFVIS_ITS ---
Intake Visit Reasons: OV-Cellulitis left hand abscess-wound check Intake Note: Jayesh is a 74 year old right hand dominant male who presents today for a post operative visit and wound check s/p left dorsal hand abscess I&D DOS: 10/20/[address] Bety Monzon. Patient reports that he has had a vistina nurse who c hanged the bandage yesterday. He took a shower this morning and the wound appears to be wet and red. He continues to take Abx - has three tablets left Music Industry Internship Name: Celina THORNTON LM Allergies oxycodone [From PERCOCET] Allergy (Unknown, Verified 11/01/24 09:00) HIVES HPI HPI OV-Cellulitis left hand abscess-wound check: Details: Jayesh is a 74 year old right hand dominant male who presents today for a post operative visit and wound check s/p left dorsal hand abscess I&D DOS: 10/20/[address] Bety Monzon. Patient reports that he has had a vistina nurse who changed the bandage yesterday. He took a shower this morning and the wound appears to be wet and red. He continues to take Abx - has three tablets left PFS Medical History Vitamin D deficiency Hematuria PVD (peripheral vascular disease) Esophageal dysphagia BPH loc w urin obs/LUTS Asthma HTN (hypertension) Surgical History Hx of colonoscopy History of surgery Hx of prostatectomy Family History Father No problems noted. Mother No problems noted. 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 Review of Systems Const All systems reviewed & are unremarkable except as noted in HPI and below Physical Exam Const General: no acute distress and alert Orientation/consciousness: patient oriented x3 HEENT Head: Yes normocephalic and Yes atraumatic Eyes EOM: EOMs intact bilaterally Resp Effort & Inspection: normal respiratory effort and able to speak in complete sentences Cardio Jugular venous distension: no JVD Skin General skin exam: turgor normal Rashes: no rashes Neuro General: patient oriented x3 Extrem Other: The patient was alert oriented and in no acute distress The incision is healing well with no drainage or evidence of infection. Sutures removed and Steri-Strips applied His swelling & erythema has greatly improved He has an ~1.5cm healing wound over the dorsal aspect of the 1st metacarpal with good granulation tissue formation, and no visible tendon. He can make a fist and extend all his digits Full active thumb ROM Sensation is intact Cap refill is brisk Microbiology report: Routine Culture Final 10/22/24 Organism 1 Staphylococcus aureus Quantity 4+ S aureus M.I.C. RX --------- --- Clindamycin <=0.25 S Erythromycin >=8 R Levofloxacin <=0.12 S Oxacillin 0.5 S Penicillin-G >=0.5 R Tetracycline <=1 S Trimethoprim/Sulfamethoxazole <=10 S Psych Appearance: grossly normal Affect: normal affect Attitude: cooperative Assessment & Plan Assessment & Plan (1) Abscess of left hand: Code(s): L02.512 - Cutaneous abscess of left hand Category: Medical Plan Assessment & Plan: 1. 1. Left dorsal hand abscess, S/P I&D DOS: 10/20/24 The patient appears to be doing well post-operatively I educated him about the post-operative course I explained the signs and symptoms of infection, if the patient develops any new or worsening erythema, drainage, pain, or warmth they should contact the clinic or attend the ED. He will continue to take his Abx as instructed I discussed activity modifications, he is to lift nothing heavier than a cellphone for the next 2 weeks He will perform gentle ROM exercises at home He should avoid any underwater activities for the next 5 days He should gently massage about the incision site to reduce the risk of hypersensitivity Follow-up in 1 week for wound check, sooner with any acute concerns Medications: Refilled 2 doxycycline monohydrate 100 mg PO BID 14 caps 0RF Coding Level of Care Code Global (23170) Diagnoses Abscess of left hand L02.512
--- OUTSIDE RECORDS SUMMARY | 2024-11-01 09:22 | XMS_ITS | Encounter Summary ---
Author Organization [employer] Address [address] [facility] 7t [place] [address] Care Team Providers Care Stummel Selector Name Role Phone Niki Ramos MD Primary Care Provide r Encounter Details Date Type Department Care Team (Latest Contact Info) Description 11/08/2018 Abstract [facility] CONVERSIONS Dental, Provider, DDS Social History [...] Description 12/05/2024 9:15 AM EDT Office Visit [facility] MEDICINE [address] [place] [address] Niki Ramos MD [address] [place] [address] documented as of this encounter Visit Diagnoses Not on filedocumented in this encounter Care Teams Stummel Selector Relationship Specialty Start Date End Date Niki Ramos MD [address] [place] [address] PCP - General Family Medicine [facility] documented as of this encounter
--- OUTSIDE RECORDS SUMMARY | 2024-11-01 09:22 | XMS_ITS | Encounter Summary ---
Author Organization [employer] Address [address] [facility] 7t [place] [address] Care Team Providers Care Implant Polisher Name Role Phone Niki Ramos MD Primary Care Provide r Encounter Details Date Type Department Care Team (Late Contact Info) Description 03/12/2023 Orders Only [facility] MEDICINE [address] [place] [address] ProviderYao MD Social History Tobacco Use Types [...] Description 12/05/2024 9:15 AM EDT Office Visit [facility] MEDICINE [address] [place] [address] [phone] Niki Ramos MD [address] [place] [phone] documented as of this encounter Procedures Procedure [...] documented as of this encounter Care Teams Implant Polisher Relationship Specialty Start Date End Date Niki Ramos MD [address] [place] [address] PCP - General Family Medicine 03/24/18 Ken CASTANEDA 10/24/24 documented as of this encounter
--- OUTSIDE RECORDS SUMMARY | 2024-11-01 09:22 | XMS_ITS | Encounter Summary ---
Author Organization [employer] Address [address] [facility] 7t [place] [address] Care Team Providers Care Custom Decorating Consultant Name Role Phone Niki Ramos MD Primary Care Provide r Encounter Details Date Type Department Care Team (Late Contact Info) Description 02/19/2023 Orders Only [facility] [address] [place], [place] [phone] Janelle Jones LPN Social History Tobacco Use [...] Description 12/05/2024 9:15 AM EDT Office Visit [facility] MEDICINE [address] [place] [address] Niki Rmaos MD [address] [place], [place] [phone] documented as of this encounter Visit Diagnoses Not on filedocumented in this encounter Additional Health Concerns Assessment Noted Time PHQ-9 Depression Total Score: 8 03/24/20 23 9:12 AM EDT documented as of this encounter Care Teams Custom Decorating Consultant Relationship Specialty Start Date End Date Niki Ramos MD [address] [place] [address] PCP - General Family Medicine 03/24/18 Ken CASTANEDA 10/24/24 documented as of this encounter
--- OUTSIDE RECORDS SUMMARY | 2024-11-01 09:22 | XMS_ITS | Data Portability ---
Author Organization [employer] [place], [place] in - [facility] Address [address] [place] [phone] Care Team Providers Care Hvac Service Technician Name Role Phone [facility] Referring Provider [phone] Assessment Encounter Date Assessment Date Assessment LastModified by Organization Details LastModified Time 05/20/2022 05/20/2022 I have reviewed and agree with the Assessment and Plan as documented by the Bark Grinder. I provided real -time medical direction via phone for this encounter, and was available for additional phone based assistance as needed. Patient given the opportunity to ask questions. Not available 05/20/2022 13:49:00 Plan of Treatment Reminders Order Date Submit Date Provider Last Modified By Organization Details Last Modified Time Details Appointments None recorded. Lab urinalysis , dipstick 2021 [email or web address] 0 [facility], [address] [place] [address], [phone] 13:53:37 culture, urine 2021 HOBBS [facility] (Centralized Electronic Ordering - All Locations), Patient Can Go To The Location Of Their Choice, [id number] 08:07:02 Referral None recorded. Procedures None recorded. Surgeries None recorded. Imaging None recorded. Medication Orders Levaquin 500 mg tablet 2021 [facility], [address] [place] [address], [id number], 14:01:24 Levaquin 500 mg tablet 2021 [email or web address] 0 Not available 13:53:37 Pyridium 100 mg tablet 2021 [facility], [address] [place], [place], [id number], 14:01:24 Patient TargetsNo targets recorded. Patient InstructionsNo instructions recorded. Reason for Referral None Reported. Results Created Date Observation Date Name Description Value Unit Range Abnormal Flag Note LastModifiedBy Organization Detail LastModifiedTime 05/20/2005/21/2022 URINE CULTU RE specimen description CLEAN CATCH (URINE ) Not Available [facility] (Centralized Electronic Ordering - All Locations) Patient Can Go To The Location Of Their Choice, [facility] 05/22/2022 08:06:59 05/20/2005/21/2022 URINE CULTU RE special requests NONE Not Available [facility] (Centralized Electronic Ordering - All Locations) Patient Can Go To The Location Of Their Choice, [facility] 05/22/2022 08:06:59 05/20/2005/22/2022 URINE CULTU RE culture NO GROWTH Not Available [facility] (Centralized Electronic Ordering - All Locations) Patient Can Go To The Location Of Their Choice, [facility] 05/22/2022 08:06:59 05/20/2005/22/2022 URINE CULTU RE report status FINAL 2021 Not Available [facility] (Centralized Electronic Ordering - All Locations) Patient Can Go To The Location Of Their Choice, [facility] 05/22/2022 08:06:59 05/20/2005/20/2022 urina lysis , dipst ick Leukocytes trace Not Available [facility] [address] [place] [address], [phone] 05/20/2022 13:48:42 05/20/20 22 05/20/2022 urina lysis , dipst ick Nitrite negati ve Not Available [facility] - [facility] [address] [place] [address], [phone] 05/20/2022 13:48:42 05/20/20 22 05/20/2022 urina lysis , dipst ick Urobilinogen neg Not Available [facility] [address] [place] [address], [phone] 05/20/2022 13:48:42 05/20/20 22 05/20/2022 urina lysis , dipst ick Protein trace Not Available Main - Ins imelda [address] [place] [address], [phone] 05/20/2022 13:48:42 05/20/20 22 05/20/2022 urina lysis , dipst ick pH 6 Not Available Main - Ins [address], [phone] 05/20/2022 13:48:42 05/20/20 22 05/20/2022 urina lysis , dipst ick Blood 50 rbc Not Available Main - Ins [address], [id number] 05/20/2022 13:48:42 05/20/20 22 05/20/2022 urina lysis , dipst ick Specific Chester 1.010 Not Available [facility] [address] [place] [address], [phone] 05/20/2022 13:48:42 05/20/20 22 05/20/2022 urina lysis , dipst ick Ketone neg Not Available Main - Ins [address], [address] 05/20/2022 13:48:42 05/20/20 22 05/20/2022 urina lysis , dipst ick Bilirubin neg Not Available Main - I nsted [address] [place] [address], [phone] 05/20/2022 13:48:42 05/20/20 22 05/20/2022 urina lysis , dipst ick Glucose neg Not Available Main - Ins [address], [address] 05/20/2022 13:48:42 05/20/20 22 05/20/2022 urina lysis , dipst ick Appearance sl cloudy Not Available Main - Inst [facility] [address] [place] [address], [phone] 05/20/2022 13:48:42 05/20/20 22 05/20/2022 urina lysis , dipst ick Color pink Not Available Main - Ins [address], [address] 05/20/2022 13:48:42 Result Notes None recorded. Medical Equipment None Reported. Allergies Allergen ID Allergen Name Allergen Category Reaction Reaction Severity Criticality Documentation Date Start Date Code Code System Note Provider Name and Address Organization Details Recorded Time 1313 acetamino phen / oxycodone medicatio n Not available Not available Not available 05/20/2022 33883 3 RxNorm Michelle Sharif MD [address] [facility],[address], [place], [phone], [facility] - [employer] 2 13:46:59 8126 acetamino phen medicatio n [...] Not Available Not Available No t Available [facility] 10 billion cell-200 mg [...] Details Last Updated DateTime 2 98.3 [degF] 92931.5 36 g 67 /min 96 % 96 % 18 /min 167.64 cm 98.3 [degF] 96 % 96 % 18 /min 67 /min 167.64 cm 87126.5 36 g 123 mm[Hg] 85 mm[Hg] 123 [...] Michelle Sharif MD Main - [facility] [address] [place] [phone] 05/20/2022 13:39:36 05/22/2022 12:40:50 Acute urinary tract infection [id number] N39.0 advised to push fluids- f/u with [...] Member ID Guarantor Name 05/20/2022 1 [facility] - DOS PRIOR TO 2022 - DUAL ELIGIBLE (MEDICARE REPLACEMENT/ADV ANTAGE - HMO) Jayesh Che [id number] Jayesh Che Notes Date Note Type Note Provider Name and Address Organization Details Recorded Time 05/20/2022 text/html HPI: 72 year old, English speaking male, reporting dysuria with penile pain [...] to process visit SEGMD: Pt interviewed w/ copy editor- only has penile pain inside when he [...] .................... .................... .................... .................... .................... .................... ...... Bark Grinder Note: Sent to a call for a pt complaining of dysuria and penile pain x 2-3 days. SC8 arrives on scene, pt is alert and oriented. Airway is patent. Pt's primary language is English; residential assistant line used during visit. Pt complains of [...] clear, concentrated; Urine dip: results uploaded to [employer]. [facility] orders Levofloxacin 500mg PO and urine culture to be sent to [facility]. Pt advised to take Tylenol 500mg q 6hrs prn, increase oral hydration, and follow up with urologist. Levofloxacin administered without incident. [facility] sends script to pt's pharmacy for Levofloxacin and Pyridium. Red flags discussed. Pt has no further questions. .................... .................... .................... .................... .................... .................... .................... . Disposition: Fulfilled Michelle Sharif MD [address] [facility],[address], [place], [address], [employer] [facility] [employer] 05/20/2022 14:33:50
--- OUTSIDE RECORDS SUMMARY | 2024-11-01 09:23 | XMS_ITS | Encounter Summary ---
Author Organization [employer] Address [address] [facility] 7t [place] [address] Care Team Providers Care Primary Special Education Teacher Name Role Phone Niki Ramos MD Primary Care Provide r Encounter Details Date Type Department Care Team (Late Contact Info) Description 06/22/2022 Abstract [facility] ADULT DENTAL [address] [place] [address] Sachin Chow, DMD [address] [place] [address] Social History Tobacco Use Types Packs/Day Years [...] 9:15 AM EDT Office Visit [facility] MEDICINE [address] [place] [address] Niki Ramos MD [address] [place] [address] documented as of this encounter Visit Diagnoses Not on filedocumented in this encounter Care Teams Primary Special Education Teacher Relationship Specialty Start Date End Date Niki Ramos MD [address] [place] [address] PCP - General Family Medicine 03/24/18 Ken A 10/24/24 documented as of this encounter
--- OUTSIDE RECORDS SUMMARY | 2024-11-01 09:23 | XMS_ITS | Encounter Summary ---
Author Organization [employer] Address [address] [facility] 7t [place] [address] Care Team Providers Care Government Instructor Name Role Phone Niki Ramos MD Primary Care Provide r Encounter Details Date Type Department Care Team (Late st Contact Info) Description 05/27/2022 Abstract [facility] ADULT DENTAL [address] [place] [address] Dental, Provider, DDS Social History Tobacco Use [...] Description 12/05/2024 9:15 AM EDT Office Visit [facility] MEDICINE [address] [place] [address] Niki Ramos MD [address] [place] [address] documented as of this encounter Procedures Procedure [...] on filedocumented in this encounter Care Teams Government Instructor Relationship Specialty Start Date End Date Niki Ramos MD [address] [place] [address] PCP - General Family Medicine [facility] documented as of this encounter
--- OUTSIDE RECORDS SUMMARY | 2024-11-01 09:23 | XMS_ITS | Encounter Summary ---
Author Organization [employer] Address [address] [facility] 7t [place] [address] Care Team Providers Care Senior Security Engineer Name Role Phone Niki Ramos MD Primary Care Provide r Encounter Details Date Type Department Care Team (Late st Contact Info) Description 06/05/2022 Abstract [facility] ADULT DENTAL [address] [place] [address] Sundeep Felipe DMD [address] [place] [address] Social History Tobacco Use Types Packs/Day Years [...] Description 12/05/2024 9:15 AM EDT Office Visit [facility] MEDICINE [address] [place] [address] Niki Ramos MD [address] [place] [address] documented as of this encounter Visit Diagnoses Not on filedocumented in this encounter Care Teams Senior Security Engineer Relationship Specialty Start Date End Date Niki Ramos MD [address] [place] [address] PCP - General Family Medicine 03/24/18 Ken CASTANEDA 10/24/24 documented as of this encounter
--- OUTSIDE RECORDS SUMMARY | 2024-11-01 09:23 | XMS_ITS | Encounter Summary ---
Author Organization [employer] Address [address] [place] [address] Care Team Providers Care Lime Boiler Name Role Phone Niki Ramos MD Primary Care Provide r Encounter Details Date Type Department Care Team ([facility] st Contact Info) Description 10/30/2024 Orders Only [...] 9:15 AM EDT Office Visit [facility] [address] [place] [address] Niki Ramos MD [address] [place], [place] [phone] documented as of this encounter Procedures Procedure [...] EDT Narrative 10/30/2024 1:16 PM EDT ? [facility] ?[address] ?[place] [address] ?XRay Report ? Signed ? Patient: Che,Jayesh ?MR#: [id number] ?? 6 ? : 1950 ?Acct:[id number] ? Age/Sex: 74 / M ?ADM Date: 04/28/25 ? Loc: HO.ED ? Attending Dr: ? Ordering Physician: Donal Mandel ?? Date of Service: 10/30/24 ?? Procedure(s): XR KUB ?? Accession Number(s): [id number] ? cc: Niki Ramos MD; Donal Mandel [...] DD/ 1250 ? TD/TT: 10/30/24 1255 ? Director Of Financial Reporting: ? Procedure Note Vik Han - 10/30/[address] [address] XRay Report Signed Patient: Luis Che#: [id number] 6 : 1950Acct:[id number] Age/Sex: 74 / MADM Date: 10/30/24 Loc: HO.ED Attending Dr: Ordering Physician: Donal Mandel Date of Service: 10/30/24 Procedure(s): XR KUB Accession Number(s): [id number] cc: Niki Ramos MD; Donal Mandel EXAMINATION: [...] 10/30/24 1313 DD/ 1250 TD/TT: 10/30/24 1255 Director Of Financial Reporting: [facility] External Provider IMG XR PROCEDURES Final Result * Urinalysis w/reflex microscopic (10/30/2024 12:24 PM EDT) Color Urine Yellow [facility] Appearance Urine Clear [facility] PH 7.0 5.0 - 9.0 [facility] Glucose Urine UA Negative Negative mg/dL [facility] Urine Blood Negative Negative [facility] Specific [place] - Urine 1.010 1.005 - 1.025 [facility] Urine Protein Negative Neg-Trace mg/dL [facility] Urine Ketones Negative Negative mg/dL [facility] Nitrite Urine Negative Negative [facility] Leukocyte Esterase Urine Negative Negative [facility] 10/30/2024 12:2 4 PM EDT 10/30/2024 12:29 PM EDT Narrative [facility] - 10/30/2024 12:40 PM EDT Urine, [place] us Generic External Data Provider LAB URINE ORDERAB LES Final Result Performing Organization Address [facility] Co de Phone Number [facility] [address] [place] [phone] * Slide Review (10/30/2024 11:20 AM EDT) Slide Review VERIFIED [facility] 10/30/2024 11:2 0 AM EDT 10/30/2024 11:27 AM EDT us Generic External Data Provider LAB BLOOD ORDERAB LES Final Result Performing Organization Address [facility] de Phone Number [facility] [address] [place] [phone] * (ABNORMAL) Comprehensive Metabolic Panel (10/30/2024 11:20 AM EDT) Sodium 133(L) 135 - 145 mmol/L [facility] Potassium 4.0 3.3 - 5.1 mmol/L [facility] Chloride 99 96 - 108 mmol/L [facility] Carbon Dioxide 26 22 - 29 mmol/L [facility] Anion Gap 12 12 - 20 [facility] Urea Nitrogen (BUN) 15 9 - 16 mg/dL [facility] Creatinine, Serum 0.73 0.5 - 1.4 mg/dL [facility] Creatinine Clr Calc Pharmacy 80.1 [facility] Comment:eGFR (calculated fro m the MDRD study equation) and eCrCl(calculated from the Cockcroft-Gault equation) are based ondifferent parameters and may not yield comparable results.If eCrCl result is absurd, please check patient'sheight/weight. Estimated Glomerular Filt Rate >60 [facility] Comment:Chronic Kidney Disea se: Estimated GFR < 60 mL/min/1.96m2Sznpqg Kidney Disease: Estimated GFR < 15 mL/min/1.73m2 Glucose 178(H) 60 - 115 mg/dL [facility] Calcium 9.1 8.4 - 10.2 mg/dL [facility] Bilirubin, Total 0.4 0.0 - 1.0 mg/dL [facility] Aspartate Amino Transferase 69(H) 5 - 37 U/L [facility] Alanine Aminotransferase 101(H) 0 - 40 U/L [facility] Total Protein 6.8 6.5 - 8.0 g/dL [facility] Albumin Level 4.2 3.5 - 5.0 g/dL [facility] Alkaline Phosphatase 68 39 - 117 U/L [facility] 10/30/2024 11:2 0 AM EDT 10/30/2024 11:27 AM EDT us Generic External Data Provider LAB BLOOD ORDERAB LES Final Result [facility] [address] [place] [phone] * (ABNORMAL) CBC auto differential (10/30/2024 11:20 AM EDT) White Blood Count 11.0(H) 4.8 - 10.8 X10*3/uL [facility] Red Blood Count 4.46(L) 4.60 - 5.80 X10*6/uL [facility] Hemoglobin 13.1(L) 14.0 - 18.0 g/dl [facility] Hematocrit 39.1(L) 42.0 - 52.0 % [facility] Mean Corpuscular Volume 87.7 80.0 - 98.0 fL [facility] Mean Corpuscular Hemoglobin 29.4 27.0 - 33.0 pg [facility] Mean Corpuscular HGB Conc 33.5 31.0 - 36.0 g/dl [facility] Red Cell Distribution Width 12.0 11.0 - 16.0 % [facility] Platelet Count 223 160 - 400 X10*3/uL [facility] Mean Platelet Volume 9.3(L) 9.4 - 12.4 fL [facility] Neutrophils Percent Auto 91.2(H) 45 - 73 % [facility] Imm Gran Pct Auto 0.6(H) 0.0 - 0.4 % [facility] Lymphocytes Percent Auto 5.3(L) 20 - 40 % [facility] Monocytes Percent Auto 2.3 2 - 11 % [facility] Eosinophils Percent Auto 0.2 0 - 4 % [facility] Basophils Percent Auto 0.4 0 - 2 % [facility] NRBC Pct Auto 0.0 0.0 - 0.2 /100WBC [facility] Neutrophils Absolute Auto 10.1(H) 2.0 - 8.3 x10*3/uL [facility] Imm Gran Abs Auto 0.07(H) 0.00 - 0.03 X10*3/uL [facility] Lymphocytes Absolute Auto 0.6(L) 1.2 - 4.9 X10*3/uL [facility] Monocytes Absolute Auto 0.3 0.1 - 1.2 X10*3/uL [facility] Eosinophils Absolute Auto 0.0 0.0 - 0.4 X10*3/uL [facility] Basophils Absolute Auto 0.0 0.0 - 0.2 X10*3/uL [facility] NRBC Abs Auto 0.000 0.0 - 0.012 X10*3/uL [facility] 10/30/2024 11:2 0 AM EDT 10/30/2024 11:27 AM EDT us Generic External Data Provider LAB BLOOD ORDERAB LES Edited Result - Final [facility] [address] [place] [phone] documented in this encounter Visit Diagnoses Not on filedocumented in this encounter Additional Health Concerns Assessment Noted Time PHQ-9 Depression Total Score: 0 10/04/19 24 9:42 AM EDT documented as of this encounter Care Teams Lime Boiler Relationship Specialty Start Date End Date Niki Ramos MD [address] [place] [phone] PCP - General Family Medicine 03/24/18 Ken Juan M 10/24/24 documented as of this encounter
--- OUTSIDE RECORDS SUMMARY | 2024-11-01 09:23 | XMS_ITS | Clinical Summary ---
Author Organization [employer] Address [address] [facility] 7t [place] [address] Care Team Providers Care Hot Head Machine Operator Name Role Phone Niki Ramos [...] PM EST): I will refer him to transcription specialist Allergy 07/12/2023 Dyspnea on exertion 01/12/2023 [...] benefit from continued OP therapy, psychiatry and [facility] respite. At this time Jayesh Che meets [...] DEPARTMENT Provider, Generic External Data 10/25/2024 Refill [facility] [address] [place] [address] [phone] Niki Ramos MD Mild intermittent asthma, unspecified whether complicated 10/17/2024 Orders Only GENERIC EXTERNAL DATA DEPARTMENT Provider, Generic External Data 09/25/2024 Orders Only [facility] [address] [place] [address] [phone] Niki Ramos MD 09/25/2024 Telephone [facility] [address] [place] [address] [phone] Niki Ramos MD Medication Question 09/16/2024 Refill [facility] [address] [place] [address] [phone] Niki Ramos MD Asthma in adult, mild intermittent, uncomplicated 09/13/2024 Orders Only [facility] External Provider, [facility] 09/12/2024 Refill [facility] [address] [place] [address] 79484 Niki Ramos MD 09/04/2024 Telephone [facility] [address] [place] [address] 21175 Niki Ramos MD Results 09/04/2024 Orders Only GENERIC EXTERNAL DATA DEPARTMENT Provider, Generic External Data 09/01/2024 10:45 AM EST Office Visit [facility] [address] [place] [address] 16983 Niki Ramos MD Pruritus (Primary Dx); Mood disorder ([facility]/HCC); Essential hypertension; Colon cancer screening; Benign prostatic hyperplasia with lower urinary tract symptoms, symptom details unspecified 09/01/2024 Travel 08/31/2024 Orders Only [facility] [address] [place] [address] 33086 Niki Ramos MD Vitamin D deficiency (Primary Dx) 08/31/2024 Telephone [facility] [address] [place] [address] 67442 Niki Ramos MD Medication Question 08/24/2024 10:00 AM EST Office Visit [facility] [address] [place] [address] Sundeep Felipe DMD from Last 3 Months [...] Description 12/05/2024 9:15 AM EDT Office Visit [facility] [address] [place] [address] Niki Ramos MD [address] [place] [address] Health Maintenance Due Date Last Done Comments [...] EDT Narrative 10/30/2024 1:16 PM EDT ? [facility] ?[address] ?[place] [address] ?XRay Report ? Signed ? Patient: Jayesh Che ?MR#: [id number] ?? 6 ? : 1950 ?Acct:[id number] ? Age/Sex: 74 / M ?ADM Date: 10/30/24 ? Loc: HO.ED ? Attending Dr: ? Ordering Physician: Donal Mandel ?? Date of Service: 10/30/24 ?? Procedure(s): XR KUB ?? Accession Number(s): [id number] ? cc: Niki Ramos MD; Donal Mandel [...] DD/ 1250 ? TD/TT: 10/30/24 1255 ? Trap Setter: ? Procedure Note Vik Han - 10/30/[address] [address] XRay Report Signed Patient: Jayesh CheMR#: [id number] 6 : 1950Acct:[id number] Age/Sex: 74 / MADM Date: 10/30/24 Loc: .ED Attending Dr: Ordering Physician: Donal Mandel Date of Service: 10/30/24 Procedure(s): XR KUB Accession Number(s): [id number] cc: Niki Ramos MD; Donal Mandel EXAMINATION: [...] 10/30/24 1313 DD/ 1250 TD/TT: 10/30/24 1255 Trap Setter: [facility] External Provider IMG XR PROCEDURES Final Result * Urinalysis w/reflex microscopic (10/30/2024 12:24 PM EDT) Color Urine Yellow [facility] Appearance Urine Clear [facility] PH 7.0 5.0 - 9.0 [facility] Glucose Urine UA Negative Negative mg/dL [facility] Urine Blood Negative Negative [facility] Specific [place] - Urine 1.010 1.005 - 1.025 [facility] Urine Protein Negative Neg-Trace mg/dL [facility] Urine Ketones Negative Negative mg/dL [facility] Nitrite Urine Negative Negative [facility] Leukocyte Esterase Urine Negative Negative [facility] 10/30/2024 12:2 4 PM EDT 10/30/2024 12:29 PM EDT Narrative [facility] - 10/30/2024 12:40 PM EDT Urine, [place] Generic External Data Provider LAB URINE ORDERAB LES Final Result [facility] [address] [place] [phone] * Slide Review (10/30/2024 11:20 AM EDT) Slide Review VERIFIED [facility] 10/30/2024 11:2 0 AM EDT 10/30/2024 11:27 AM EDT us Generic External Data Provider LAB BLOOD ORDERAB LES Final Result [facility] [address] [place] [phone] * (ABNORMAL) CBC auto differential (10/30/2024 11:20 AM EDT) Only the most recent of3 resultswithin the time period is included. White Blood Count 11.0(H) 4.8 - 10.8 X10*3/uL [facility] Red Blood Count 4.46(L) 4.60 - 5.80 X10*6/uL [facility] Hemoglobin 13.1(L) 14.0 - 18.0 g/dl [facility] Hematocrit 39.1(L) 42.0 - 52.0 % [facility] Mean Corpuscular Volume 87.7 80.0 - 98.0 fL [facility] Mean Corpuscular Hemoglobin 29.4 27.0 - 33.0 pg [facility] Mean Corpuscular HGB Conc 33.5 31.0 - 36.0 g/dl [facility] Red Cell Distribution Width 12.0 11.0 - 16.0 % [facility] Platelet Count 223 160 - 400 X10*3/uL [facility] Mean Platelet Volume 9.3(L) 9.4 - 12.4 fL [facility] Neutrophils Percent Auto 91.2(H) 45 - 73 % [facility] Imm Gran Pct Auto 0.6(H) 0.0 - 0.4 % [facility] Lymphocytes Percent Auto 5.3(L) 20 - 40 % [facility] Monocytes Percent Auto 2.3 2 - 11 % [facility] Eosinophils Percent Auto 0.2 0 - 4 % [facility] Basophils Percent Auto 0.4 0 - 2 % [facility] NRBC Pct Auto 0.0 0.0 - 0.2 /100WBC [facility] Neutrophils Absolute Auto 10.1(H) 2.0 - 8.3 x10*3/uL [facility] Imm Gran Abs Auto 0.07(H) 0.00 - 0.03 X10*3/uL [facility] Lymphocytes Absolute Auto 0.6(L) 1.2 - 4.9 X10*3/uL [facility] Monocytes Absolute Auto 0.3 0.1 - 1.2 X10*3/uL [facility] Eosinophils Absolute Auto 0.0 0.0 - 0.4 X10*3/uL [facility] Basophils Absolute Auto 0.0 0.0 - 0.2 X10*3/uL [facility] NRBC Abs Auto 0.000 0.0 - 0.012 X10*3/uL [facility] 10/30/2024 11:2 0 AM EDT 10/30/2024 11:27 AM EDT us Generic External Data Provider LAB BLOOD ORDERAB LES Edited Result - Final [facility] [address] [place] [address] [phone] * (ABNORMAL) Comprehensive Metabolic Panel (10/30/2024 11:20 AM EDT) Only the most recent of3 resultswithin the time period is included. Sodium 133(L) 135 - 145 mmol/L [facility] Potassium 4.0 3.3 - 5.1 mmol/L [facility] Chloride 99 96 - 108 mmol/L [facility] Carbon Dioxide 26 22 - 29 mmol/L [facility] Anion Gap 12 12 - 20 [facility] Urea Nitrogen (BUN) 15 9 - 16 mg/dL [facility] Creatinine, Serum 0.73 0.5 - 1.4 mg/dL [facility] Creatinine Clr Calc Pharmacy 80.1 [facility] Comment:eGFR (calculated fro m the MDRD study equation) and eCrCl(calculated from the Cockcroft-Gault equation) are based ondifferent parameters and may not yield comparable results.If eCrCl result is absurd, please check patient'sheight/weight. Estimated Glomerular Filt Rate >60 [facility] Comment:Chronic Kidney Disea se: Estimated GFR < 60 mL/min/1.76z7Eavmav Kidney Disease: Estimated GFR < 15 mL/min/1.73m2 Glucose 178(H) 60 - 115 mg/dL [facility] Calcium 9.1 8.4 - 10.2 mg/dL [facility] Bilirubin, Total 0.4 0.0 - 1.0 mg/dL [facility] Aspartate Amino Transferase 69(H) 5 - 37 U/L [facility] Alanine Aminotransferase 101(H) 0 - 40 U/L [facility] Total Protein 6.8 6.5 - 8.0 g/dL [facility] Albumin Level 4.2 3.5 - 5.0 g/dL [facility] Alkaline Phosphatase 68 39 - 117 U/L [facility] 10/30/2024 11:2 0 AM EDT 10/30/2024 11:27 AM EDT us Generic External Data Provider LAB BLOOD ORDERAB LES Final Result Performing Organization Address [facility] Co de Phone Number [facility] [address] [place] [phone] * Lactic Acid (10/17/2024 10:00 AM EDT) Lactic Acid 1.5 0.5 - 2.0 mmol/L [facility] 10/17/2024 10:0 0 AM EDT 10/17/2024 10:03 AM EDT us Generic External Data Provider LAB BLOOD ORDERAB LES Final Result Performing Organization Address [facility] Co de Phone Number [facility] [address] [place] [phone] * XR Hand 3+ Views Left (10/17/2024 9:39 AM EDT) Anatomical Region Laterality Modality Upper Extremities, Hand Left Radiogra phic Imaging 10/17/2024 9:39 AM EDT Narrative 10/17/2024 10:39 AM EDT ? [facility] ?[address] ?[place] [address] ?XRay Report ? Signed ? Patient: Jayesh Che ?MR#: [id number] ?? 6 ? : 1950 ?Acct:[id number] ? Age/Sex: 74 / M ?ADM Date: 10/17/24 ? Loc: HO.ED ? Attending Dr: ? Ordering Physician: Hannah Blakely ?? Date of Service: 10/17/24 ?? Procedure(s): XR hand LT min 3V ?? Accession Number(s): [id number] ? cc: Niki Ramos MD; Hannah Blakely [...] DD/ 0939 ? TD/TT: 10/17/24 1018 ? Trap Setter: ? Procedure Note [facility] - 10/17/2024 [address] [place] [address] XRay Report Signed Patient: Jayesh CheMR#: [id number] 6 : 1950Acct:[id number] Age/Sex: 74 / MADM Date: 10/17/24 Loc: HO.ED Attending Dr: Ordering Physician: Hannah Blakely Date of Service: 10/17/24 Procedure(s): XR hand LT min 3V Accession Number(s): [id number] cc: Niki Ramos MD; Hannah Blakely EXAMINATION: [...] 10/17/24 1036 DD/ 0939 TD/TT: 10/17/24 1018 Trap Setter: [facility] External Provider IMG XR PROCEDURES Final Result * Sed Rate by Modified Catarinaren (10/17/2024 8:18 AM EDT) Erythrocyte Sedimentation Rate 8 0 - 15 MM/HR [facility] Comment:Patients with polycy themia and many hemoglobin abnormalitiesmay have depressed sed rates whereas patients with anemiamay have elevated sed rates. 10/17/2024 8:18 AM EDT 10/17/2024 9:50 AM EDT us Generic External Data Provider LAB BLOOD ORDERAB LES Final Result Performing Organization Address [facility] de Phone Number [facility] [address] [place] [address] [phone] * (ABNORMAL) C-reactive Protein (10/17/2024 8:18 AM EDT) C Reactive Protein 4.30(H) < or = 0.50 mg/dL [facility] 10/17/2024 8:18 AM EDT 10/17/2024 8:25 AM EDT us Generic External Data Provider LAB BLOOD ORDERAB LES Final Result Performing Organization Address [facility] de Phone Number [facility] [address] [place] [phone] * Stress test with myocardial perfusion (09/13/2024 9:40 AM EDT) 09/13/2024 9:40 AM EDT Narrative [facility] - 09/17/2024 11:42 AM EDT ? [facility] ?[address] ?[place] [address] ?Nuclear Medicine Report ? Signed ? Patient: Jayesh Che ?MR#: [id number] ?? 6 ? : 1950 ?Acct:[id number] ? Age/Sex: 74 / M ?ADM Date: 03/12/25 ? Loc: HO.CARD ? Attending Dr: Ralph Lyman MD ? Ordering Physician: Ralph Lyman MD ?? Date of Service: 09/13/24 ?? Procedure(s): NM cardiolite stress test ?? Accession Number(s): [id number] ? cc: Niki Ramos MD; Ralph Lyman [...] DD/ 0940 ? TD/TT: 09/15/24 1210 ? Trap Setter: ? Procedure Note [facility] - 09/17/[address] [address] Nuclear Medicine Report Signed Patient: Luis Che#: [id number] 6 : 1950Acct:[id number] Age/Sex: 74 / MADM Date: 09/13/24 Loc: .[facility] Attending Dr: Ralph Lyman MD Ordering Physician: Ralph Lyman MD Date of Service: 09/13/24 Procedure(s): NM cardiolite stress test Accession Number(s): [id number] cc: Niki Ramos MD; Ralph Lyman MD [...] 09/17/24 1139 DD/ 0940 TD/TT: 09/15/24 1210 Trap Setter: [facility] External Provider CV STRE SS PROCEDURES Final Result Performing Organization Address [facility] Co de Phone Number [facility] [address] [place], [place] [phone] * (ABNORMAL) Vitamin D, 25-Hydroxy, Total, Immunoassay (09/04/2024 7:59 AM EST) Vitamin D 25-OH Total 26.9(L) >30 ng/mL [facility] Comment:Health Based Referen ce Values*< 20 ng/mL Socexocgp21-93 ng/mL Insufficient> 30 ng/mL Sufficient*Leora CANDELARIA. N [...] BLOOD ORDERABLES Final Result Performing Organization Address [facility]/ZIP Co de Phone Number [facility] [address] [place] [phone] * TSH with Reflex to Free T4 (09/04/2024 7:59 AM EST) TSH reflex Free T4 1.23 0.32 - 4.0 uIU/mL [facility] Blood Venous blood specimen / Unknown 09/04/2024 7:59 AM EST 09/04/2024 11:36 AM EST us Niki Simmons MD LAB BLOOD ORDERABLES Final Result [facility] [address] [place] [phone] * (ABNORMAL) PSA, Total With Reflex to PSA, Free (09/04/2024 7:59 AM EST) Pathologist [facility] PSA,Total (Free>4and<10) 10.94(H ) 0.00 - 4.00 ng/mL [facility] Comment:A Free PSA was not p [...] ORDERAB LES Final Result Performing Organization Address City/[facility]/ZIP Co de Phone Number [facility] [address] [place] [phone] * Hepatitis C Antibody with Reflex to HCV, RNA, Quantitative, Real-Time PCR (09/04/2024 7:59 AM EST) Pathologist [facility] Hepatitis C Antibody Nonreactive Nonreactive [facility] Comment:Antibodies to HCV no t detected; does not exclude early acuteHCV infection. Blood Venous blood specimen / Unknown 09/04/2024 7:59 AM EST 09/04/2024 11:36 AM EST us Niki Simmons MD LAB BLOOD ORDERABLES Final Result Performing Organization Address City/[facility]/ZIP Co de Phone Number [facility] [address] [place] [phone] * HIV-1/2 Antigen and Antibodies, Fourth Generation, with Reflexes (09/04/2024 7:59 AM EST) HIV AB/AG Nonreactive Nonreactive [facility] Comment:HIV-1 p24 Ag and/or HIV-1/HIV-2 Ab not detected.A test result that is nonreactive does not exclude thepossibility of exposure to or infection with HIV-1 and/orHIV-2. Nonreactive results in this assay for individualswith prior exposure to HIV-1 and/or HIV-2 may be due toantigen and antibody levels that are below the limit ofdetection of this assay.The [employer] HIV Ag/Ab Combo assay result andsupplemental assay results should be interpreted inconjunction with the patient's clinical presentation,history and other laboratory results. If the results areinconsistent with clinical evidence, additional testing issuggested to confirm the result. Blood Venous blood specimen / Unknown 09/04/2024 7:59 AM EST 09/04/2024 11:36 AM EST us Niki Simmons MD LAB BLOOD ORDERABLES Final Result Performing Organization Address City/[facility]/ZIP Co de Phone Number [facility] [address] [place] [phone] * Hemoglobin A1c (09/04/2024 7:59 AM EST) Hemoglobin A1c 5.7 <6.0 % [facility] Comment:Hemoglobin A1C Refer ence Range Adults: 4.8 - 6.0 % Non diabetic: < 6.0 % Goal: < 7.0 %Additional Action Suggested: > 8.0 %Note: Hemoglobin A1c results are invalid for patients with abnormal amounts of HbF. Blood transfusions may impact the HbA1c concentration in the patient sample. Estimated Average Glucose 117 mg/dL [facility] Comment:eAG = Estimated ave rage glucose which is %A1C expressed asaverage glucose, using the formula of the G5E-KghhghzNlhtxrz Glucose study (ADAG), Diabetes Care, Vol.31,#8,Feb. 2007 Blood Venous blood specimen / Unknown 09/04/2024 7:59 AM EST 09/04/2024 11:36 AM EST us Niki Simmons MD LAB BLOOD ORDERABLES Final Result [facility] [address] [place] [phone] * Lipid Panel, Standard (09/04/2024 7:59 AM EST) Triglycerides 74 <150 mg/dL [facility] Comment:Desirable Triglyceri de: less than 150 mg/dLBorderline High Triglyceride 150-199 mg/dLHigh Triglyceride: 200-499 mg/dLVery High Triglyceride: greater than or equal to 5OO mg/dL Cholesterol 106 <200 mg/dL [facility] Comment:Desirable Cholestero l: less than 200 mg/dLBorderline High Cholesterol: 200-239 mg/dLHigh Cholesterol: greater than 239 mg/dL LDL Cholesterol Calculated 47 <100 mg/dL [facility] Comment:Desirable LDL: less than 100 mg/dLNear Optimal/Above Optimal LDL: 110- 129 mg/dLBorderline High LDL: 130-159 mg/dLHigh LDL: 160-189 mg/dLVery High LDL: greater than or equal to 190 mg/dL HDL Cholesterol 45 >40 mg/dL [facility] Comment:Desirable HDL: great er than 40 mg/dL Note: This HDL assay may give artificially low results in patients with liver disease. Blood Venous blood specimen / Unknown 09/04/2024 7:59 AM EST 09/04/2024 11:36 AM EST us Niki Simmons MD LAB BLOOD ORDERABLES Final Result [facility] [address] [place] [address] [phone] * Hm Colonoscopy (03/07/2020) us Historical Provider HEALTH MAINTENANCE Final Result from Last 3 Months or Most Recently Relevant to Health Maintenance Insurance [facility]IT[facility] OPTIONS (O D-SNP) [facility] Care Teams Hot Head Machine Operator Relationship Specialty Start Date End Date Niki Ramos MD [address] [place] [address] PCP - General Family Medicine 03/24/18 Ken A 10/24/24
--- OUTSIDE RECORDS SUMMARY | 2024-11-01 09:23 | XMS_ITS | Encounter Summary ---
Author Organization [employer] Address [address] [facility] [address]t [place] [address] Care Team Providers Care Welcome Center Agent Name Role Phone Niki Ramos MD Primary Care Provide r Encounter Details Date Type Department Care Team (Late st Contact Info) Description 09/03/2022 Abstract [facility] [address] [place] [address] Sundeep Felipe DMD [address] [place] [address] Social History Tobacco Use Types Packs/Day Years [...] Description 12/05/2024 9:15 AM EDT Office Visit [facility] [address] [place] [address] Niki Ramos MD [address] [place] [address] documented as of this encounter Visit Diagnoses Not on filedocumented in this encounter Care Teams Welcome Center Agent Relationship Specialty Start Date End Date Niki Ramos MD [address] [place] [address] PCP - General Family Medicine 03/24/18 Ken A 10/24/24 documented as of this encounter
--- OUTSIDE RECORDS SUMMARY | 2024-11-01 09:23 | XMS_ITS | Encounter Summary ---
Author Organization [email or web address] Address [address] [facility] [address]t [place] [address] Care Team Providers Care Job Change Crew Member Name Role Phone Niki Ramos MD Primary Care Provide r Encounter Details Date Type Department Care Team (Latest Contact Info) Description 04/09/2022 Abstract [facility] CONVERSIONS Dental, Provider, DDS Social [...] 9:15 AM EDT Office Visit [facility] [address] [place] [address] Niki Ramos MD [address] [place] [address] documented as of this encounter Visit Diagnoses Not on filedocumented in this encounter Care Teams Job Change Crew Member Relationship Specialty Start Date End Date Niki Ramos MD [address] [place] [address] [phone] PCP - General Family Medicine [facility] documented as of this encounter
--- OUTSIDE RECORDS SUMMARY | 2024-11-01 09:23 | XMS_ITS | Encounter Summary ---
Author Organization [employer] Address [address] [facility] [address] [place] [address] Care Team Providers Care Wardrobe Consultant Name Role Phone Niki Ramos MD Primary Care Provide r Encounter Details Date Type Department Care Team (Late st Contact Info) Description 07/30/2022 Abstract [facility] [address] [place] [address] Sundeep Felipe DMD [address] [place] [address] Social History Tobacco Use Types Packs/Day Years [...] Description 12/05/2024 9:15 AM EDT Office Visit [facility] [address] [place] [address] Niki Ramos MD [address] [place] [address] documented as of this encounter Visit Diagnoses Not on filedocumented in this encounter Care Teams Wardrobe Consultant Relationship Specialty Start Date End Date Niki Ramos MD [address] [place] [address] PCP - General Family Medicine 03/24/18 Ken A 10/24/24 documented as of this encounter
== END 2024-11-01 09:16 | disposition home or self-care (01) ==
LOC: HO.HOS 08:57
PROVIDERS: PCP Internal Medicine
DX: L02.512 Cutaneous abscess of left hand (principal)
CPT/HCPCS: 99024

== ENCOUNTER → 2024-11-01 08:57 | Outpatient (BNVA) | payer OTHER, SELFPAY | PROVIDERS: PCP Internal Medicine | DX: L02.512 Cutaneous abscess of left hand (principal) | CPT/HCPCS: 99212 ==

== ENCOUNTER 2024-11-08 08:44 | Outpatient (AMB) | payer OTHER, SELFPAY ==
--- NOTE | 2024-11-08 08:58 | MHC.OFFVIS ---
Intake Visit Reasons: OV-Cellulitis left hand abscess-wound check Intake Note: Jayesh is a 74 year old right hand dominant male who presents today for a post operative visit and wound check s/p left dorsal hand abscess I&D DOS: 10/20/[address] Bety Monzon. At his last visit he was given a 2 lb weight limit. He continues to take the abx as he has three days remaining. Administrative Volunteer Services: Administrative Volunteer Offered & Declined Allergies oxycodone [From PERCOCET] Allergy (Unknown, Verified 11/08/24 09:06) HIVES HPI HPI OV-Cellulitis left hand abscess-wound check: Details: Jayesh is a 74 year old right hand dominant male who presents today for a post operative visit and wound check s/p left dorsal hand abscess I&D DOS: 10/20/[address] Bety Monzon. At his last visit he was given a 2 lb weight limit. He continues to take the abx as he has three days remaining. [facility] Medical History Vitamin D deficiency Hematuria PVD (peripheral vascular disease) Esophageal dysphagia BPH loc w urin obs/LUTS Asthma HTN (hypertension) Surgical History Hx of colonoscopy History of surgery Hx of prostatectomy Family History Father No problems noted. Mother No problems noted. 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 Review of Systems Const All systems reviewed & are unremarkable except as noted in HPI and below Physical Exam Const General: no acute distress and alert Orientation/consciousness: patient oriented x3 HEENT Head: Yes normocephalic and Yes atraumatic Eyes EOM: EOMs intact bilaterally Resp Effort & Inspection: normal respiratory effort and able to speak in complete sentences Cardio Jugular venous distension: no JVD Skin General skin exam: turgor normal Rashes: no rashes Neuro General: patient oriented x3 Extrem Other: The patient was alert oriented and in no acute distress The incision is healing well with no drainage or evidence of infection. Sutures removed and Steri-Strips applied His swelling & erythema has greatly improved He has an ~0.5cm healing wound over the dorsal aspect of the 1st metacarpal with good granulation tissue formation and new skin growth, and no visible tendon. He can make a fist and extend all his digits Full active thumb ROM Sensation is intact Cap refill is brisk Microbiology report: Routine Culture Final 10/22/24-44 Organism 1 Staphylococcus aureus Quantity 4+ S aureus M.I.C. RX --------- --- Clindamycin <=0.25 S Erythromycin >=8 R Levofloxacin <=0.12 S Oxacillin 0.5 S Penicillin-G >=0.5 R Tetracycline <=1 S Trimethoprim/Sulfamethoxazole <=10 S Psych Appearance: grossly normal Affect: normal affect Attitude: cooperative Assessment & Plan Assessment & Plan (1) Abscess of left hand: Code(s): L02.512 - Cutaneous abscess of left hand Category: Medical Plan Assessment & Plan: 1. 1. Left dorsal hand abscess, S/P I&D DOS: 10/20/24 The patient appears to be doing well post-operatively I educated him about the post-operative course I explained the signs and symptoms of infection, if the patient develops any new or worsening erythema, drainage, pain, or warmth they should contact the clinic or attend the ED. He will continue to take his Abx as instructed I discussed activity modifications, he is to lift nothing heavier than a cellphone for the next 2 weeks He will perform gentle ROM exercises at home He should gently massage about the incision site to reduce the risk of hypersensitivity Follow-up in 1-2 week for wound check, sooner with any acute concerns Coding Level of Care Code Global (96031) Diagnoses Abscess of left hand L02.512
--- OUTSIDE RECORDS SUMMARY | 2024-11-08 09:05 | XMS_ITS | Encounter Summary ---
Author Organization [facility] Address [address] [place] [address] Care Team Providers Care Senior Accountant Analyst Name Role Phone Niki Ramos MD Primary Care Provide r Encounter Details Date Type Department Care Team (Latest Contact Info) Description 11/08/2018 Abstract [facility] CONVERSIONS Dental, Provider, DDS Social History Tobacco [...] Care Team ( st Contact Info) Description 12/05/2024 9:15 AM EDT Office Visit [facility] MEDICINE [address] [place] [address] Niki Ramos MD [address] [place] [address] documented as of this encounter Visit Diagnoses Not on filedocumented in this encounter Care Teams Senior Accountant Analyst Relationship Specialty Start Date End Date Niki Ramos MD [address] [place], [place] [phone] PCP - General Family Medicine 03/24/18 [place] [facility] 10/24/24 documented as of this encounter
--- OUTSIDE RECORDS SUMMARY | 2024-11-08 09:05 | XMS_ITS | Encounter Summary ---
Author Organization [employer] Address [address] [place] [address] Care Team Providers Care Biofuels Manager Name Role Phone Niki Ramos MD Primary Care Provide r Encounter Details Date Type Department Care Team ([facility] Contact Info) Description 06/22/2022 Abstract [facility] ADULT DENTAL [address] [place] [address] Sachin Chow, DMD [address] [place] [address] Social History Tobacco Use Types Packs/Day Years [...] Encounters Date Type Department Care Team (Late Contact Info) Description 12/05/2024 9:15 AM EDT Office Visit [facility] MEDICINE [address] [place] [address] Niki Ramos MD [address] [place] [address] documented as of this encounter Visit Diagnoses Not on filedocumented in this encounter Care Teams Biofuels Manager Relationship Specialty Start Date End Date Niki Ramos MD [address] [place] [address] PCP - General Family Medicine 03/24/18 Ken A 10/24/24 documented as of this encounter
--- OUTSIDE RECORDS SUMMARY | 2024-11-08 09:05 | XMS_ITS | Data Portability ---
Author Organization [employer] [place] [place] [facility] Address [address] [place] [id number] Care Team Providers Care Interactive Designer Name Role Phone [facility] Referring Provider [phone] Assessment Encounter Date Assessment Date Assessment LastModified by Organization Details LastModified Time 05/20/2022 05/20/2022 I have reviewed and agree with the Assessment and Plan as documented by the Testing Analyst. I provided real -time medical direction via phone for this encounter, and was available for additional phone based assistance as needed. Patient given the opportunity to ask questions. [email or web address] Not available 05/20/2022 13:49:00 Plan of Treatment Reminders Order Date Submit Date Provider Last Modified By Organization Details Last Modified Time Details Appointments None recorded. Lab urinalysis , dipstick 2021 [email or web address] 0 [facility], [address] [place] [address], [id number] 13:53:37 culture, urine 2021 [place] [facility] (Centralized Electronic Ordering - All Locations), Patient Can Go To The Location Of Their Choice, [id number] 08:07:02 Referral None recorded. Procedures None recorded. Surgeries None recorded. Imaging None recorded. Medication Orders Levaquin 500 mg tablet 2021 [facility], [address] [place] [address], [id number], 14:01:24 Levaquin 500 mg tablet 2021 [email or web address] Not available 13:53:37 Pyridium 100 mg tablet 2021 [facility], [address] [place], [place], [id number], 14:01:24 Patient TargetsNo targets recorded. Patient InstructionsNo instructions recorded. Reason for Referral None Reported. Results Created Date Observation Date Name Description Value Unit Range Abnormal Flag Note LastModifiedBy Organization Detail LastModifiedTime 05/20/2005/21/2022 URINE CULTU RE specimen description CLEAN CATCH (URINE ) Not Available [facility] (Centralized Electronic Ordering - All Locations) Patient Can Go To The Location Of Their Choice, [facility] 05/22/2022 08:06:59 05/20/2005/21/2022 URINE CULTU RE special requests NONE Not Available [facility] (Centralized Electronic Ordering - All Locations) Patient Can Go To The Location Of Their Choice, [facility] 05/22/2022 08:06:59 05/20/2005/22/2022 URINE CULTU RE culture NO GROWTH Not Available [facility] (Centralized Electronic Ordering - All Locations) Patient Can Go To The Location Of Their Choice, [facility] 05/22/2022 08:06:59 05/20/2005/22/2022 URINE CULTU RE report status FINAL 2021 Not Available [facility] (Centralized Electronic Ordering - All Locations) Patient Can Go To The Location Of Their Choice, [facility] 05/22/2022 08:06:59 05/20/2005/20/2022 urina lysis , dipst ick Leukocytes trace Not Available [facility] [address] [place] [address], [phone] 05/20/2022 13:48:42 05/20/20 22 05/20/2022 urina lysis , dipst ick Nitrite negati ve Not Available [facility] [address] [place] [address], [phone] 05/20/2022 13:48:42 05/20/20 22 05/20/2022 urina lysis , dipst ick Urobilinogen neg Not Available [facility] [address] [place] [address], [phone] 05/20/2022 13:48:42 05/20/20 22 05/20/2022 urina lysis , dipst ick Protein trace Not Available [facility] - [facility] imel[facility] [address] [place] [address], [phone] 05/20/2022 13:48:42 05/20/20 22 05/20/2022 urina lysis , dipst ick pH 6 Not Available Main - [facility] [address], [phone] 05/20/2022 13:48:42 05/20/20 22 05/20/2022 urina lysis , dipst ick Blood 50 rbc Not Available Main - [facility] [address], [phone] 05/20/2022 13:48:42 05/20/20 22 05/20/2022 urina lysis , dipst ick Specific [place] 1.010 Not Available [facility] [address] [place] [address], [phone] 05/20/2022 13:48:42 05/20/20 22 05/20/2022 urina lysis , dipst ick Ketone neg Not Available Main - [facility] [address], [phone] 05/20/2022 13:48:42 05/20/20 22 05/20/2022 urina lysis , dipst ick Bilirubin neg Not Available Main - [facility] n[facility] [address] [place] [address], [phone] 05/20/2022 13:48:42 05/20/20 22 05/20/2022 urina lysis , dipst ick Glucose neg Not Available Main - [facility] [address], [phone] 05/20/2022 13:48:42 05/20/20 22 05/20/2022 urina lysis , dipst ick Appearance sl cloudy Not Available [facility] [address] [place] [address], [phone] 05/20/2022 13:48:42 05/20/20 22 05/20/2022 urina lysis , dipst ick Color pink Not Available Main - [facility] [address], [phone] 05/20/2022 13:48:42 Result Notes None recorded. Medical Equipment None Reported. Allergies Allergen ID Allergen Name Allergen Category Reaction Reaction Severity Criticality Documentation Date Start Date Code Code System Note Provider Name and Address Organization Details Recorded Time 1313 acetamino phen / oxycodone medicatio n Not available Not available Not available 05/20/2022 09213 3 RxNorm Michelle Sharif MD [address] [facility], [place], [phone], [facility] - [place] 2 13:46:59 8126 acetamino phen medicatio n [...] Not Available Not Available No t Available [facility] 10 billion cell-200 mg sprinkle capsule TAKE [...] Details Last Updated DateTime 2 98.3 [degF] 91273.5 36 g 67 /min 96 % 96 % 18 /min 167.64 cm 98.3 [degF] 96 % 96 % 18 /min 67 /min 167.64 cm 13444.5 36 g 123 mm[Hg] 85 mm[Hg] 123 [...] Michelle Sharif MD Main - [facility] [address] [place] [phone] 05/20/2022 13:39:36 05/22/2022 12:40:50 Acute urinary tract infection [id number] N39.0 advised to push fluids- f/u with [...] Recorded Advance Directives Directive None Recorded Payers Insurance Date Sequence Insurance Name Policy Number Policy Riojas Covered Member ID Riojas Member ID Guarantor Name 05/20/2022 1 [facility] - DOS PRIOR TO 2022 - DUAL ELIGIBLE (MEDICARE REPLACEMENT/ADV ANTAGE - HMO) Jayesh Che [id number] Jayesh Che Notes Date Note Type Note Provider Name and Address Organization Details Recorded Time 05/20/2022 text/html HPI: 72 year old, Occitan speaking male, reporting dysuria with penile pain [...] to process visit SEGMD: Pt interviewed w/ alignment mechanic- only has penile pain inside when he [...] .................... .................... .................... .................... .................... .................... ...... Testing Analyst Note: Sent to a call for a pt complaining of dysuria and penile pain x 2-3 days. SC8 arrives on scene, pt is alert and oriented. Airway is patent. Pt's primary language is Occitan; pet handler line used during visit. Pt complains of [...] clear, concentrated; Urine dip: results uploaded to [employer]. [facility] orders Levofloxacin 500mg PO and urine culture to be sent to [facility]. Pt advised to take Tylenol 500mg q 6hrs prn, increase oral hydration, and follow up with urologist. Levofloxacin administered without incident. [facility] sends script to pt's pharmacy for Levofloxacin and Pyridium. Red flags discussed. Pt has no further questions. .................... .................... .................... .................... .................... .................... .................... . Disposition: Fulfilled Michelle Sharif MD [address] [facility], [place], [phone], [facility] [place] 05/20/2022 14:33:50
--- OUTSIDE RECORDS SUMMARY | 2024-11-08 09:05 | XMS_ITS | Encounter Summary ---
Author Organization [employer] [facility] Address [address] [place] [address] Care Team Providers Care Patient Care Director Name Role Phone Niki Ramos MD Primary Care Provide r Encounter Details Date Type Department Care Team (Late Contact Info) Description 07/30/2022 Abstract [facility] ADULT DENTAL [address] [place] [address] Sundeep Felipe DMD [address] [place] [address] Social History Tobacco Use Types Packs/Day Years [...] Description 12/05/2024 9:15 AM EDT Office Visit [facility] MEDICINE [address] [place] [address] Niik Ramos MD [address] [place] [address] documented as of this encounter Visit Diagnoses Not on filedocumented in this encounter Care Teams Patient Care Director Relationship Specialty Start Date End Date Niki Ramos MD [address] [place] [address] PCP - General Family Medicine 03/24/18 Ken A 10/24/24 documented as of this encounter
--- OUTSIDE RECORDS SUMMARY | 2024-11-08 09:05 | XMS_ITS | Encounter Summary ---
Author Organization [employer] [facility] Address [address] [place] [address] Care Team Providers Care System Dispatcher Name Role Phone Niki Ramos MD Primary Care Provide r Encounter Details Date Type Department Care Team ([facility] Contact Info) Description 03/12/2023 Orders Only [facility] MEDICINE [address] [place] [address] ProviderYao MD Social History Tobacco Use Types [...] 9:15 AM EDT Office Visit [facility] MEDICINE [address] [place] [address] Niki Ramos MD [address] [place] [phone] documented as of this encounter Procedures Procedure Name Priority Date/Time Associated Diagnosis Comments COLONOSCOPY Routine 03/07/2020 documented in this encounter Results * Colonoscopy (03/07/2020) us Historical Provider HEALTH MAINTENANCE Final Result documented in this encounter Visit Diagnoses Not on filedocumented in this encounter Additional Health Concerns Assessment Noted Time PHQ-9 Depression Total Score: 8 09/26/19 23 9:12 AM EDT documented as of this encounter Care Teams System Dispatcher Relationship Specialty Start Date End Date Niki Ramos MD [address] [place] [id number] PCP - General Family Medicine 03/24/18 Ken CASTANEDA 10/24/24 documented as of this encounter
--- OUTSIDE RECORDS SUMMARY | 2024-11-08 09:05 | XMS_ITS | Clinical Summary ---
Author Organization [employer] Address [address] [facility] 7t [place] [address] Care Team Providers Care Litigation Paralegal Name Role Phone Niki Ramos MD Primary [...] PM EST): I will refer him to patient transition specialist Allergy 07/12/2023 Dyspnea on exertion 01/12/2023 [...] benefit from continued OP therapy, psychiatry and [facility] respite. At this time Jayesh Che meets criteria for Visit Diagnoses: Problem List Items Addressed This Visit Other Generalized anxiety disorder Patient ready to address current needs Yes Strengths- Jayesh is engaged in OP therapy and psychiatry services and in the active stage for change. PLAN: 1. Follow up with [facility]: Not recommended for follow-up 2. Patient goal [...] DEPARTMENT Provider, Generic External Data 10/25/2024 Refill [facility] MEDICINE [address] [place] [address] [phone] Niki Ramos MD Mild intermittent asthma, unspecified whether complicated 10/17/2024 Orders Only GENERIC EXTERNAL DATA DEPARTMENT Provider, Generic External Data 09/25/2024 Orders Only [facility]ICINE [address] [place] [address] 42294 Niki Ramos MD 09/25/2024 Telephone [facility]INE [address] [place] [address] [phone] Niki Ramos MD Medication Question 09/16/2024 Refill [facility] [address] [place] [address] 16291 Niki Ramos MD Asthma in adult, mild intermittent, uncomplicated 09/13/2024 Orders Only [facility] External Provider, [facility] 09/12/2024 Refill [facility]INE [address] [place] [address] [phone] Niki Ramos MD 09/04/2024 Telephone [facility] [address] [place] [address] 29581 Niki Ramos MD Results 09/04/2024 Orders Only GENERIC EXTERNAL DATA DEPARTMENT Provider, Generic External Data 09/01/2024 10:45 AM EST Office Visit [facility] [address] [place] [address] [phone] Niki Ramos MD Pruritus (Primary Dx); Mood disorder ([facility]/HCC); Essential hypertension; Colon cancer screening; Benign prostatic hyperplasia with lower urinary tract symptoms, symptom details unspecified 09/01/2024 Travel 08/31/2024 Orders Only [facility] [address] [place] [address] 46770 Niki Ramos MD Vitamin D deficiency (Primary Dx) 08/31/2024 Telephone [facility]INE [address] [place] [address] [phone] Niki Ramos MD Medication Question 08/24/2024 10:00 AM EST Office Visit [facility] ADULT DENTAL [address] [facility] [place] [address] Sundeep Felipe DMD from Last 3 Months [...] Description 12/05/2024 9:15 AM EDT Office Visit [facility]ICINE [address] [place] [address] Niki Ramos MD [address] [place] [address] Health Maintenance Due Date Last Done Comments [...] EDT Narrative 10/30/2024 1:16 PM EDT ? [facility] ?[address] ?[place] [address] ?XRay Report ? Signed ? Patient: Jayesh Che ?MR#: [id number] ?? 6 ? : 1950 ?Acct:[id number] ? Age/Sex: 74 / M ?ADM Date: 10/30/24 ? Loc: HO.ED ? Attending Dr: ? Ordering Physician: Donal Mandel ?? Date of Service: 10/30/24 ?? Procedure(s): XR KUB ?? Accession Number(s): [id number] ? cc: Niki Ramos MD; Donal Mandel [...] DD/ 1250 ? TD/TT: 10/30/24 1255 ? Respiratory Coordinator: ? Procedure Note Donotcheriseter, Image - 10/30/[address] [address] XRay Report Signed Patient: Jayesh CheMR#: [id number] 6 : 1950Acct:[id number] Age/Sex: 74 / MADM Date: 10/30/24 Loc: .ED Attending Dr: Ordering Physician: Donal Mandel Date of Service: 10/30/24 Procedure(s): XR KUB Accession Number(s): [id number] cc: Niki Ramos MD; Donal Mandel EXAMINATION: [...] 10/30/24 1313 DD/ 1250 TD/TT: 10/30/24 1255 Respiratory Coordinator: [facility] External Provider IMG XR PROCEDURES Final Result * Urinalysis w/reflex microscopic (10/30/2024 12:24 PM EDT) Color Urine Yellow [facility] Appearance Urine Clear [facility] PH 7.0 5.0 - 9.0 [facility] Glucose Urine UA Negative Negative mg/dL [facility] Urine Blood Negative Negative [facility] Specific [place] - Urine 1.010 1.005 - 1.025 [facility] Urine Protein Negative Neg-Trace mg/dL [facility] Urine Ketones Negative Negative mg/dL [facility] Nitrite Urine Negative Negative [facility] Leukocyte Esterase Urine Negative Negative [facility] 10/30/2024 12:2 4 PM EDT 10/30/2024 12:29 PM EDT Narrative [facility] - 10/30/2024 12:40 PM EDT Urine, [place] Generic External Data Provider LAB URINE ORDERAB LES Final Result [facility] [address] [place] [phone] * Slide Review (10/30/2024 11:20 AM EDT) Slide Review VERIFIED [facility] 10/30/2024 11:2 0 AM EDT 10/30/2024 11:27 AM EDT us Generic External Data Provider LAB BLOOD ORDERAB LES Final Result [facility] [address] [place] [address] [phone] * (ABNORMAL) CBC auto differential (10/30/2024 11:20 AM EDT) Only the most recent of3 resultswithin the time period is included. White Blood Count 11.0(H) 4.8 - 10.8 X10*3/uL [facility] Red Blood Count 4.46(L) 4.60 - 5.80 X10*6/uL [facility] Hemoglobin 13.1(L) 14.0 - 18.0 g/dl [facility] Hematocrit 39.1(L) 42.0 - 52.0 % [facility] Mean Corpuscular Volume 87.7 80.0 - 98.0 fL [facility] Mean Corpuscular Hemoglobin 29.4 27.0 - 33.0 pg [facility] Mean Corpuscular HGB Conc 33.5 31.0 - 36.0 g/dl [facility] Red Cell Distribution Width 12.0 11.0 - 16.0 % [facility] Platelet Count 223 160 - 400 X10*3/uL [facility] Mean Platelet Volume 9.3(L) 9.4 - 12.4 fL [facility] Neutrophils Percent Auto 91.2(H) 45 - 73 % [facility] Imm Gran Pct Auto 0.6(H) 0.0 - 0.4 % [facility] Lymphocytes Percent Auto 5.3(L) 20 - 40 % [facility] Monocytes Percent Auto 2.3 2 - 11 % [facility] Eosinophils Percent Auto 0.2 0 - 4 % [facility] Basophils Percent Auto 0.4 0 - 2 % [facility] NRBC Pct Auto 0.0 0.0 - 0.2 /100WBC [facility] Neutrophils Absolute Auto 10.1(H) 2.0 - 8.3 x10*3/uL [facility] Imm Gran Abs Auto 0.07(H) 0.00 - 0.03 X10*3/uL [facility] Lymphocytes Absolute Auto 0.6(L) 1.2 - 4.9 X10*3/uL [facility] Monocytes Absolute Auto 0.3 0.1 - 1.2 X10*3/uL [facility] Eosinophils Absolute Auto 0.0 0.0 - 0.4 X10*3/uL [facility] Basophils Absolute Auto 0.0 0.0 - 0.2 X10*3/uL [facility] NRBC Abs Auto 0.000 0.0 - 0.012 X10*3/uL [facility] 10/30/2024 11:2 0 AM EDT 10/30/2024 11:27 AM EDT us Generic External Data Provider LAB BLOOD ORDERAB LES Edited Result - Final [facility] [address] [place], [place] [phone] * (ABNORMAL) Comprehensive Metabolic Panel (10/30/2024 11:20 AM EDT) Only the most recent of3 resultswithin the time period is included. Sodium 133(L) 135 - 145 mmol/L [facility] Potassium 4.0 3.3 - 5.1 mmol/L [facility] Chloride 99 96 - 108 mmol/L [facility] Carbon Dioxide 26 22 - 29 mmol/L [facility] Anion Gap 12 12 - 20 [facility] Urea Nitrogen (BUN) 15 9 - 16 mg/dL [facility] Creatinine, Serum 0.73 0.5 - 1.4 mg/dL [facility] Creatinine Clr Calc Pharmacy 80.1 [facility] Comment:eGFR (calculated fro m the MDRD study equation) and eCrCl(calculated from the Cockcroft-Gault equation) are based ondifferent parameters and may not yield comparable results.If eCrCl result is absurd, please check patient'sheight/weight. Estimated Glomerular Filt Rate >60 [facility] Comment:Chronic Kidney Disea se: Estimated GFR < 60 mL/min/1.94n9Branwb Kidney Disease: Estimated GFR < 15 mL/min/1.73m2 Glucose 178(H) 60 - 115 mg/dL [facility] Calcium 9.1 8.4 - 10.2 mg/dL [facility] Bilirubin, Total 0.4 0.0 - 1.0 mg/dL [facility] Aspartate Amino Transferase 69(H) 5 - 37 U/L [facility] Alanine Aminotransferase 101(H) 0 - 40 U/L [facility] Total Protein 6.8 6.5 - 8.0 g/dL [facility] Albumin Level 4.2 3.5 - 5.0 g/dL [facility] Alkaline Phosphatase 68 39 - 117 U/L [facility] 10/30/2024 11:2 0 AM EDT 10/30/2024 11:27 AM EDT us Generic External Data Provider LAB BLOOD ORDERAB LES Final Result Performing Organization Address [facility] Co de Phone Number [facility] [address] [place] [address] [phone] * Lactic Acid (10/17/2024 10:00 AM EDT) Lactic Acid 1.5 0.5 - 2.0 mmol/L [facility] 10/17/2024 10:0 0 AM EDT 10/17/2024 10:03 AM EDT us Generic External Data Provider LAB BLOOD ORDERAB LES Final Result Performing Organization Address [facility] Co de Phone Number [facility] [address] [place] [address] [phone] * XR Hand 3+ Views Left (10/17/2024 9:39 AM EDT) Anatomical Region Laterality Modality Upper Extremities, Hand Left Radiogra phic Imaging 10/17/2024 9:39 AM EDT Narrative 10/17/2024 10:39 AM EDT ? [facility] ?[address] ?[place] [address] ?XRay Report ? Signed ? Patient: Chinedu,Jayesh ?MR#: [id number] ?? 6 ? : 1950 ?Acct:[id number] ? Age/Sex: 74 / M ?ADM Date: 10/17/24 ? Loc: HO.ED ? Attending Dr: ? Ordering Physician: Hannah Blakely ?? Date of Service: 10/17/24 ?? Procedure(s): XR hand LT min 3V ?? Accession Number(s): [id number] ? cc: Niki Ramos MD; Hannah Blakely [...] DD/ 0939 ? TD/TT: 10/17/24 1018 ? Respiratory Coordinator: ? Procedure Note Donotuseinterpreter, Image - 10/17/[address] [address] XRay Report Signed Patient: Jayesh CheMR#: [id number] 6 : 1950Acct:[id number] Age/Sex: 74 / MADM Date: 10/17/24 Loc: HO.ED Attending Dr: Ordering Physician: Hannah Blakely Date of Service: 10/17/24 Procedure(s): XR hand LT min 3V Accession Number(s): [id number] cc: Niki Ramos MD; Hannah Blakely EXAMINATION: [...] 10/17/24 1036 DD/ 0939 TD/TT: 10/17/24 1018 Respiratory Coordinator: [facility] External Provider IMG XR PROCEDURES Final Result * Sed Rate by Modified Catarinaren (10/17/2024 8:18 AM EDT) Erythrocyte Sedimentation Rate 8 0 - 15 MM/HR [facility] Comment:Patients with polycy themia and many hemoglobin abnormalitiesmay have depressed sed rates whereas patients with anemiamay have elevated sed rates. 10/17/2024 8:18 AM EDT 10/17/2024 9:50 AM EDT us Generic External Data Provider LAB BLOOD ORDERAB LES Final Result Performing Organization Address [facility] Co de Phone Number [facility] [address] [place] [address] [phone] * (ABNORMAL) C-reactive Protein (10/17/2024 8:18 AM EDT) C Reactive Protein 4.30(H) < or = 0.50 mg/dL [facility] 10/17/2024 8:18 AM EDT 10/17/2024 8:25 AM EDT us Generic External Data Provider LAB BLOOD ORDERAB LES Final Result Performing Organization Address [facility] de Phone Number [facility] [address] [place] [address] [phone] * Stress test with myocardial perfusion (09/13/2024 9:40 AM EDT) 09/13/2024 9:40 AM EDT Narrative [facility] - 09/17/2024 11:42 AM EDT ? [facility] ?[address] ?[place] [address] ?Nuclear Medicine Report ? Signed ? Patient: Jayesh Che ?MR#: [id number] ?? 6 ? : 1950 ?Acct:[id number] ? Age/Sex: 74 / M ?ADM Date: 03/12/25 ? Loc: HO.CARD ? Attending Dr: Ralph Lyman MD ? Ordering Physician: Ralph Lyman MD ?? Date of Service: 09/13/24 ?? Procedure(s): NM cardiolite stress test ?? Accession Number(s): [id number] ? cc: Niki Ramos MD; Ralph Lyman [...] DD/ 0940 ? TD/TT: 09/15/24 1210 ? Respiratory Coordinator: ? Procedure Note Emely Image - 09/17/[address] [address] Nuclear Medicine Report Signed Patient: Luis Che#: [id number] 6 : 1950Acct:[id number] Age/Sex: 74 / MADM Date: 09/13/24 Loc: .[facility] Attending Dr: Ralph Lyman MD Ordering Physician: Ralph Lyman MD Date of Service: 09/13/24 Procedure(s): NM cardiolite stress test Accession Number(s): [id number] cc: Niki Ramos MD; Ralph Lyman MD [...] 09/17/24 1139 DD/ 0940 TD/TT: 09/15/24 1210 Respiratory Coordinator: [facility] External Provider CV STRE SS PROCEDURES Final Result Performing Organization Address [facility] Co de Phone Number [facility] [address] [place], [place] [phone] * (ABNORMAL) Vitamin D, 25-Hydroxy, Total, Immunoassay (09/04/2024 7:59 AM EST) Vitamin D 25-OH Total 26.9(L) >30 ng/mL [facility] Comment:Health Based Referen ce Values*< 20 ng/mL Vntzxaaxb54-98 ng/mL Insufficient> 30 ng/mL Sufficient*Leora CANDELARIA. N [...] EST 09/04/2024 11:36 AM EST us Niki Simomns MD LAB BLOOD ORDERABLES Final Result Performing Organization Address [facility]/ZIP Co de Phone Number [facility] [address] [place] [address] [phone] * TSH with Reflex to Free T4 (09/04/2024 7:59 AM EST) TSH reflex Free T4 1.23 0.32 - 4.0 uIU/mL [facility] Blood Venous blood specimen / Unknown 09/04/2024 7:59 AM EST 09/04/2024 11:36 AM EST us Niki Simmons MD LAB BLOOD ORDERABLES Final Result Performing Organization Address City/[facility]/ZIP Co de Phone Number [facility] [address] [place] [phone] * (ABNORMAL) PSA, Total With Reflex to PSA, Free (09/04/2024 7:59 AM EST) Pathologist [facility] PSA,Total (Free>4and<10) 10.94(H ) 0.00 - 4.00 ng/mL [facility] Comment:A Free PSA was not [...] ORDERAB LES Final Result Performing Organization Address City/[facility]/ZIP Co de Phone Number [facility] [address] [place] [phone] * Hepatitis C Antibody with Reflex to HCV, RNA, Quantitative, Real-Time PCR (09/04/2024 7:59 AM EST) Pathologist [facility] Hepatitis C Antibody Nonreactive Nonreactive [facility] Comment:Antibodies to HCV no t detected; does not exclude early acuteHCV infection. Blood Venous blood specimen / Unknown 09/04/2024 7:59 AM EST 09/04/2024 11:36 AM EST Niki Simmons MD LAB BLOOD ORDERABLES Final Result Performing Organization Address City/[facility]/ZIP Co de Phone Number [facility] [address] [place] [phone] * HIV-1/2 Antigen and Antibodies, Fourth Generation, with Reflexes (09/04/2024 7:59 AM EST) HIV AB/AG Nonreactive Nonreactive [facility] Comment:HIV-1 p24 Ag and/or HIV-1/HIV-2 Ab not detected.A test result that is nonreactive does not exclude thepossibility of exposure to or infection with HIV-1 and/orHIV-2. Nonreactive results in this assay for individualswith prior exposure to HIV-1 and/or HIV-2 may be due toantigen and antibody levels that are below the limit ofdetection of this assay.The Heyzap HIV Ag/Ab Combo assay result andsupplemental assay [...] [facility]/ZIP Co de Phone Number [facility] [address] [place] [address] [phone] * Hemoglobin A1c (09/04/2024 7:59 AM EST) Hemoglobin A1c 5.7 <6.0 % [facility] Comment:Hemoglobin A1C Refer ence Range Adults: 4.8 - 6.0 % Non diabetic: < 6.0 % Goal: < 7.0 %Additional Action Suggested: > 8.0 %Note: Hemoglobin A1c results are invalid for patients with abnormal amounts of HbF. Blood transfusions may impact the HbA1c concentration in the patient sample. Estimated Average Glucose 117 mg/dL [facility] Comment:eAG = Estimated ave rage glucose which is %A1C expressed asaverage glucose, using the formula of the A7N-PufycisKwtxlsg Glucose study (ADAG), Diabetes Care, Vol.31,#8,2007 Blood Venous blood specimen / Unknown 09/04/2024 7:59 AM EST 09/04/2024 11:36 AM EST us Niki Simmons MD LAB BLOOD ORDERABLES Final Result [facility] [address] [place] [phone] * Lipid Panel, Standard (09/04/2024 7:59 AM EST) Triglycerides 74 <150 mg/dL [facility] Comment:Desirable Triglyceri de: less than 150 mg/dLBorderline High Triglyceride 150-199 mg/dLHigh Triglyceride: 200-499 mg/dLVery High Triglyceride: greater than or equal to 5OO mg/dL Cholesterol 106 <200 mg/dL [facility] Comment:Desirable Cholestero l: less than 200 mg/dLBorderline High Cholesterol: 200-239 mg/dLHigh Cholesterol: greater than 239 mg/dL LDL Cholesterol Calculated 47 <100 mg/dL [facility] Comment:Desirable LDL: less than 100 mg/dLNear Optimal/Above Optimal LDL: 110- 129 mg/dLBorderline High LDL: 130-159 mg/dLHigh LDL: 160-189 mg/dLVery High LDL: greater than or equal to 190 mg/dL HDL Cholesterol 45 >40 mg/dL [facility] Comment:Desirable HDL: great er than 40 mg/dL Note: This HDL assay may give artificially low results in patients with liver disease. Blood Venous blood specimen / Unknown 09/04/2024 7:59 AM EST 09/04/2024 11:36 AM EST us Niki Simmons MD LAB BLOOD ORDERABLES Final Result [facility] [address] [place] [phone] [phone] * Hm Colonoscopy (03/07/2020) us Historical Provider HEALTH MAINTENANCE Final Result from Last 3 Months or Most Recently Relevant to Health Maintenance Insurance [facility] OPTIONS (HMO D-SNP) [facility] - [facility] Care Teams Litigation Paralegal Relationship Specialty Start Date End Date Niki Ramos MD [address] [place] [address] PCP - General Family Medicine 03/24/18 Ken A 10/24/24
--- OUTSIDE RECORDS SUMMARY | 2024-11-08 09:05 | XMS_ITS | Encounter Summary ---
Author Organization [facility] Address [address] [facility] 7t [place] [address] Care Team Providers Care Key Sander Name Role Phone Niki Ramos MD Primary Care Provide r Encounter Details Date Type Department Care Team (Late st Contact Info) Description 05/27/2022 Abstract [facility] ADULT DENTAL [address] [place] [address] Dental, Provider, DDS Social History Tobacco Use [...] 9:15 AM EDT Office Visit [facility] MEDICINE [address] [place] [address] Niki Ramos MD [address] [place] [address] documented as of this encounter Procedures Procedure [...] on filedocumented in this encounter Care Teams Key Sander Relationship Specialty Start Date End Date Niki Ramos MD [address] [place] [address] PCP - General Family Medicine [facility] documented as of this encounter
--- OUTSIDE RECORDS SUMMARY | 2024-11-08 09:05 | XMS_ITS | Encounter Summary ---
Author Organization [employer] Address [address] [facility] [address]t [place] [address] Care Team Providers Care Master Control Operator Name Role Phone Niki Ramos MD Primary Care Provide r Encounter Details Date Type Department Care Team ([facility] Contact Info) Description 02/19/2023 Orders Only [facility] MED & PEDS [address] [place] [address] Janelle Jones LPN Social History Tobacco Use [...] Description 12/05/2024 9:15 AM EDT Office Visit [facility] MEDICINE [address] [place] [address] Niki Ramos MD [address] [place], [place] [phone] documented as of this encounter Visit Diagnoses Not on filedocumented in this encounter Additional Health Concerns Assessment Noted Time PHQ-9 Depression Total Score: 8 09/26/19 23 9:12 AM EDT documented as of this encounter Care Teams Master Control Operator Relationship Specialty Start Date End Date Niki Ramos MD [address] [place] [address] PCP - General Family Medicine 03/24/18 Ken CASTANEDA 10/24/24 documented as of this encounter
--- OUTSIDE RECORDS SUMMARY | 2024-11-08 09:05 | XMS_ITS | Encounter Summary ---
Author Organization [employer] [facility] Address [address] [facility] 7t [place] [address] Care Team Providers Care Instrument Lens Inspector Name Role Phone Niki Ramos MD Primary Care Provide r Encounter Details Date Type Department Care Team (Late st Contact Info) Description 06/05/2022 Abstract [facility] ADULT DENTAL [address] [place] [address] Sundeep Felipe, ROBERTO [address] [place] [address] Social History Tobacco Use Types Packs/Day Years [...] Description 12/05/2024 9:15 AM EDT Office Visit [facility] MEDICINE [address] [place] [address] Niki Ramos MD [address] [place] [address] documented as of this encounter Visit Diagnoses Not on filedocumented in this encounter Care Teams Instrument Lens Inspector Relationship Specialty Start Date End Date Niki Ramos MD [address] [place] [address] PCP - General Family Medicine 03/24/18 Ken CASTANEDA 10/24/24 documented as of this encounter
--- OUTSIDE RECORDS SUMMARY | 2024-11-08 09:05 | XMS_ITS | Encounter Summary ---
Author Organization [facility] Address [address] [facility] [address] [place] [address] Care Team Providers Care Maintenance Craftsman Name Role Phone Niki Ramos MD Primary Care Provide r Encounter Details Date Type Department Care Team (Late Contact Info) Description 09/03/2022 Abstract [facility] ADULT DENTAL [address] [place] [address] Sundeep Felipe DMD [address] [place] [address] Social History Tobacco Use Types Packs/Day Years [...] 12/05/2024 9:15 AM EDT Office Visit [facility] MEDICINE [address] [place] [address] Niki Ramos MD [address] [place] [address] documented as of this encounter Visit Diagnoses Not on filedocumented in this encounter Care Teams Maintenance Craftsman Relationship Specialty Start Date End Date Niki Ramos MD [address] [place] [address] PCP - General Family Medicine 03/24/18 Ken A 10/24/24 documented as of this encounter
--- OUTSIDE RECORDS SUMMARY | 2024-11-08 09:05 | XMS_ITS | Encounter Summary ---
Author Organization [facility] Address [address] [facility] 7t [place] [address] Care Team Providers Care Hematologist Name Role Phone Niki Ramos MD Primary Care Provide r Encounter Details Date Type Department Care Team (Latest Contact Info) Description 04/09/2022 Abstract [facility] CONVERSIONS Dental, [...] Description 12/05/2024 9:15 AM EDT Office Visit [facility] MEDICINE [address] [place] [address] Niki Ramos MD [address] [place] [address] documented as of this encounter Visit Diagnoses Not on filedocumented in this encounter Care Teams Hematologist Relationship Specialty Start Date End Date Niki Ramos MD [address] [place] [address] PCP - General Family Medicine 03/24/18 [facility] 10/24/24 documented as of this encounter
== END 2024-11-08 09:23 | disposition home or self-care (01) ==
LOC: HO.HOS 08:45
PROVIDERS: PCP Internal Medicine
DX: L02.512 Cutaneous abscess of left hand (principal)
CPT/HCPCS: 99024

== ENCOUNTER → 2024-11-08 08:44 | Outpatient (BNVA) | payer OTHER, SELFPAY | PROVIDERS: PCP Internal Medicine | DX: Z48.817 Encounter for surgical aftercare following surgery on the skin and subcutaneous tissue (principal); Z98.890 Other specified postprocedural states | CPT/HCPCS: 99212 ==

== ENCOUNTER 2024-11-10 13:44 | Outpatient (AMB) | payer OTHER, SELFPAY ==
[2024-11-10 13:47] VITALS: BP 124/72; PULSE 86; BMI 24.5
--- NOTE | 2024-11-10 13:47 | A.OFFVIS_ITS ---
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 Chain Analyst Name: voice perkins [id number] Allergies oxycodone [From PERCOCET] Allergy (Unknown, Verified 11/10/24 13:50) HIVES Medication List - Last Reconciled 11/10/24 by NICHELLE Brooke albuterol sulfate 90 mcg/actuation 2 puffs PO Q4-6H PRN atorvastatin 40 mg PO BEDTIME pufjnnmwfw-ckxuqeim-ukrigtnlea 160-9-4.8 mcg/actuation (Breztri Aerosphere) 2 inhalations inhalation BID buspirone 10 mg PO BID cholecalciferol (vitamin D3) 25 mcg PO DAILY docusate sodium 250 mg PO BID PRN doxycycline monohydrate 100 mg PO BID epinephrine IM escitalopram oxalate 10 mg PO DAILY finasteride 5 mg PO DAILY 90 days hydrochlorothiazide 12.5 mg PO DAILY hydromorphone 1 mg (1/2 x 2 mg) PO Q6H PRN hydroxyzine HCl 25 mg PO DAILY PRN ipratropium-albuterol 0.5 mg-3 mg(2.5 mg base)/3 mL 3 mL inhalation Q4-6H PRN lorazepam 0.5 mg PO BID PRN montelukast 10 mg PO BEDTIME omeprazole 40 mg PO DAILY@0630 polyethylene glycol 3350 (Miralax) 17 grams PO DAILY 2 weeks terazosin 10 mg PO BEDTIME 90 days zolpidem 5 mg PO BEDTIME PRN HPI HPI f/u [facility]: Details: Jayesh is a 74-year-old male with past medical history of asthma, hypertension, peripheral vascular disease, prior report of chest discomfort with nuclear stress test showing no ischemia recently underwent an echocardiogram and now presents for follow-up and preop cardiovascular clearance. Today he reports that he will be having a procedure to decrease the size of his prostate next week. He has no cardiac concerns at this time. He has not had any recent chest discomfort at rest or during activity. He denies shortness of breath at rest, PND, orthopnea or edema. He will get shortness of breath with activity at times. No heart palpitations, lightheadedness, presyncope, syncope, falls. He reports compliance with his meds. He walks routinely for exercise. He was recently admitted for infection on his hand which is now healing well. 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 [facility] Medical History Vitamin D deficiency Hematuria PVD (peripheral vascular disease) Esophageal dysphagia BPH loc w urin obs/LUTS Asthma HTN (hypertension) Surgical History Hx of colonoscopy History of surgery Hx of prostatectomy Family History Father No problems noted. Mother No problems noted. 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 Review of Systems Const All systems reviewed & are unremarkable except as noted in HPI and below ENT Denies dizziness Card Details: palpitations occassional Denies chest pain, Denies chest pain at rest, Denies chest pain with activity, Denies rapid heart rate, Denies pedal edema, Denies edema, Denies leg edema, Denies lightheadedness, Denies palpitations, Reports dyspnea (at times with activity), Denies dyspnea on exertion and Denies orthopnea Resp Denies cough, Reports dyspnea (at times with activity) and Denies dyspnea on exertion GI Denies hematochezia and Denies change in stool character Musc Denies abnormal gait, Denies limited range of motion, Denies muscle cramps, Denies muscle weakness, Denies numbness, Denies radiating pain into limb, Denies stiffness and Denies tingling Neuro Denies abnormal gait, Denies dizziness, Denies numbness and Denies tingling Endo Denies palpitations Physical Exam Vital Signs: BMI result Body Mass Index 24.5 Const General: cooperative, healthy appearing, comfortable and no acute distress Orientation/consciousness: patient oriented x3 Neck Neck: Yes normal visual inspection and Yes no JVD Resp Effort & Inspection: normal respiratory effort Auscultation: clear to auscultation bilaterally, no rales, no rhonchi and no wheezes Cardio Rate: regular rate Rhythm: regular rhythm Heart sounds: S1 normal heart sound present, S2 normal heart sound present, no gallops, no murmurs and no rubs Neuro General: patient oriented x3 Extrem General: Yes normal to inspection, No no pedal edema and No calf tenderness Psych Appearance: grossly normal Mental Status: mental status grossly normal Speech and movement: Normal speech and movement present Office Procedures EKG Details: Today, read by me normal sinus rhythm, rate 86, Qtc 457ms [id number], Complete Assessment & Plan Assessment & Plan (1) Precordial chest pain: Code(s): R07.2 - Precordial pain Category: Medical Plan: Prior reports of chest discomfort, also having shortness of breath with exertional activities. A nuclear stress test was done 09/13/2024 with exercise 5 minutes, mild shortness of breath, no EKG changes and no clear ischemia, fixed inferior defect likely diaphragm attenuation. Echocardiogram was done on 10/04/2024 showing EF 65%, no valve abnormalities and no regional wall motion abnormalities mildly dilated ascending aorta 4 cm. EKG done today showing normal sinus rhythm, rate 86. Test results reviewed with him in detail. No evidence that his symptom was cardiac in nature. No longer reporting chest discomfort but does still have some shortness of breath at times which could be from deconditioning or asthma. (2) Palpitations: Code(s): R00.2 - Palpitations Category: Medical Plan: Holter monitor done for report of heart palpitations, 10/04/2024 for 3 days shows sinus rhythm with average heart rate 77, PACs 5.75% of the time, SVE short runs, longest 11 beats, occasional PVCs. He currently reports no concerning palpitations. Frequent PACs at times can lead to PAF. Reviewed this with him. Discussed reduction in caffeinated beverages. And notify this office if you have increasing heart palpitations. Will check Holter monitor prior to next visit. Cardiology follow-up 1 year, sooner if needed. (3) HTN (hypertension): Code(s): I10 - Essential (primary) hypertension Category: Medical Plan: Blood pressure goal less than 130/80, well controlled at present. No med changes made. (4) PAC (premature atrial contraction): Code(s): I49.1 - Atrial premature depolarization Category: Medical Plan: Seen on Holter monitor as above. Mildly symptomatic. (5) Preop cardiovascular exam: Code(s): Z01.810 - Encounter for preprocedural cardiovascular examination Category: Medical Plan: Preop for urological procedure next week. He may proceed with low cardiac risk. Call/consult cardiology if needed Plan Time spent on chart review, documentation, interview and assessment Patient was informed and verbally consented to the use of an ambient scribe for clinic note documentation during this visit. I discussed the patient's cardiovascular evaluation findings, confirming his eligibility for the upcoming prostate procedure. The echocardiogram, EKG, and stress test results were normal, supporting the clearance for surgery. The emphasis was on managing and monitoring his symptoms of chest discomfort, shortness of breath, and palpitations, with instructions to report any significant changes. Advised continuation of his current medication regimen and the limitation of caffeinated beverages to manage palpitations. I informed the patient of the follow-up plan involving a Holter monitor study next year, with an option to expedite this if symptoms worsen. The patient expressed understanding and agreement with the proposed plan and instructions. Orders: Orders ECG 3 day holter monitor 11 Months I49.1 - Atrial premature depolarization Patient Instructions: - Continue current medications as prescribed. - Monitor symptoms of chest discomfort, shortness of breath, and palpitations. - Limit caffeinated beverages. - Report any worsening or new symptoms promptly. - Follow up in one year for a Holter monitor, or sooner if symptoms change. - Proceed with urological procedure as planned. Coding Level of Care Code Est Pt Level 4 (49168) Complex EM visit Add On G2211 Diagnoses Precordial chest pain R07.2 Palpitations R00.2 HTN (hypertension) I10 PAC (premature atrial contraction) I49.1 Preop cardiovascular exam Z01.810 CPT Codes EKG - CPT: 46192-[id number], Complete ([id number]) Time Spent (min) 28
--- OUTSIDE RECORDS SUMMARY | 2024-11-10 13:48 | XMS_ITS | Data Portability ---
Author Organization [facility] [place], [place] in - [facility] Address [address] [place] [phone] Care Team Providers Care Assembler Radio And Electrical Name Role Phone [facility] Referring Provider [phone] Assessment Encounter Date Assessment Date Assessment LastModified by Organization Details LastModified Time 05/20/2022 05/20/2022 I have reviewed and agree with the Assessment and Plan as documented by the Compress Engineer. I provided real -time medical direction via phone for this encounter, and was available for additional phone based assistance as needed. Patient given the opportunity to ask questions. [email or web address] Not available 05/20/2022 13:49:00 Plan of Treatment Reminders Order Date Submit Date Provider Last Modified By Organization Details Last Modified Time Details Appointments None recorded. Lab urinalysis , dipstick [email or web address] [facility], [address] [place] [address], [phone] 13:53:37 culture, urine 2021 [place] [facility] (Centralized Electronic Ordering - All Locations), Patient Can Go To The Location Of Their Choice, [id number] 08:07:02 Referral None recorded. Procedures None recorded. Surgeries None recorded. Imaging None recorded. Medication Orders Levaquin 500 mg tablet 2021 [facility], [address] [place] [address], [phone], 14:01:24 Levaquin 500 mg tablet 2021 [email or web address] 0 Not available 13:53:37 Pyridium 100 mg tablet 2021 [facility], [address], [place], [phone], 14:01:24 Patient TargetsNo targets recorded. Patient InstructionsNo instructions recorded. Reason for Referral None Reported. Results Created Date Observation Date Name Description Value Unit Range Abnormal Flag Note LastModifiedBy Organization Detail LastModifiedTime 05/20/2005/21/2022 URINE CULTU RE specimen description CLEAN CATCH (URINE ) Not Available [facility] (Centralized Electronic Ordering - All Locations) Patient Can Go To The Location Of Their Choice, [facility] 05/22/2022 08:06:59 05/20/2005/21/2022 URINE CULTU RE special requests NONE Not Available [facility] (Centralized Electronic Ordering - All Locations) Patient Can Go To The Location Of Their Choice, [facility] 05/22/2022 08:06:59 05/20/2005/22/2022 URINE CULTU RE culture NO GROWTH Not Available [facility] (Centralized Electronic Ordering - All Locations) Patient Can Go To The Location Of Their Choice, [facility] 05/22/2022 08:06:59 05/20/2005/22/2022 URINE CULTU RE report status FINAL 2021 Not Available [facility] (Centralized Electronic Ordering - All Locations) Patient Can Go To The Location Of Their Choice, [facility] 05/22/2022 08:06:59 05/20/2005/20/2022 urina lysis , dipst ick Leukocytes trace Not Available [facility] [address] [place] [address], [phone] 05/20/2022 13:48:42 05/20/20 22 05/20/2022 urina lysis , dipst ick Nitrite negati ve Not Available [facility] [address] [place] [address], [phone] 05/20/2022 13:48:42 05/20/20 22 05/20/2022 urina lysis , dipst ick Urobilinogen neg Not Available [facility] [address] [place] [address], [phone] 05/20/2022 13:48:42 05/20/20 22 05/20/2022 urina lysis , dipst ick Protein trace Not Available [facility] - [facility] imelda [address] [place] [address], [phone] 05/20/2022 13:48:42 05/20/20 22 05/20/2022 urina lysis , dipst ick pH 6 Not Available [facility] - [facility] [address], [phone] 05/20/2022 13:48:42 05/20/20 22 05/20/2022 urina lysis , dipst ick Blood 50 rbc Not Available [facility] - [facility] [address], [phone] 05/20/2022 13:48:42 05/20/20 22 05/20/2022 urina lysis , dipst ick Specific [place] 1.010 Not Available [facility] [address] [place] [address], [phone] 05/20/2022 13:48:42 05/20/20 22 05/20/2022 urina lysis , dipst ick Ketone neg Not Available Main - [facility] [address], [phone] 05/20/2022 13:48:42 05/20/20 22 05/20/2022 urina lysis , dipst ick Bilirubin neg Not Available [facility] - [facility] n[facility] [address] [place] [address], [phone] 05/20/2022 13:48:42 05/20/20 22 05/20/2022 urina lysis , dipst ick Glucose neg Not Available [facility] - [facility] [address], [phone] 05/20/2022 13:48:42 05/20/20 22 05/20/2022 urina lysis , dipst ick Appearance sl cloudy Not Available [facility] [address] [place] [address], [phone] 05/20/2022 13:48:42 05/20/20 22 05/20/2022 urina lysis , dipst ick Color pink Not Available [facility] - [facility] [address], [phone] 05/20/2022 13:48:42 Result Notes None recorded. Medical Equipment None Reported. Allergies Allergen ID Allergen Name Allergen Category Reaction Reaction Severity Criticality Documentation Date Start Date Code Code System Note Provider Name and Address Organization Details Recorded Time 1313 acetamino phen / oxycodone medicatio n Not available Not available Not available 05/20/2022 15079 3 RxNorm Michelle Sharif MD [address] [facility],[address], [place], [phone], [facility] - [employer] 2 13:46:59 8126 acetamino phen medicatio n [...] Available No t Available [facility] 10 billion cell-200 mg sprinkle capsule TAKE [...] Details Last Updated DateTime 2 98.3 [degF] 91852.5 36 g 67 /min 96 % 96 % 18 /min 167.64 cm 98.3 [degF] 96 % 96 % 18 /min 67 /min 167.64 cm 86146.5 36 g 123 mm[Hg] 85 mm[Hg] 123 [...] Michelle Sharif MD Main - [facility] [address] [place] [phone] 05/20/2022 13:39:36 05/22/2022 12:40:50 Acute urinary tract infection 124144348 N39.0 advised to push fluids- f/u with [...] Riojas Member ID Guarantor Name 05/20/2022 1 [facility] - DOS PRIOR TO 2022 - DUAL ELIGIBLE (MEDICARE REPLACEMENT/ADV ANTAGE - HMO) Jayesh Che [id number] Jayesh Che Notes Date Note Type Note Provider Name and Address Organization Details Recorded Time 05/20/2022 text/html HPI: 72 year old, Sami speaking male, reporting dysuria with penile pain [...] to process visit SEGMD: Pt interviewed w/ agricultural systems specialist- only has penile pain inside when he [...] .................... .................... .................... .................... .................... .................... ...... Compress Engineer Note: Sent to a call for a pt complaining of dysuria and penile pain x 2-3 days. SC8 arrives on scene, pt is alert and oriented. Airway is patent. Pt's primary language is Sami; mechanical unit repairer line used during visit. Pt complains of [...] clear, concentrated; Urine dip: results uploaded to [employer]. [facility] [place] Lev[place] 500mg PO and urine culture to be sent to [facility]. Pt advised to take Tylenol 500mg q 6hrs prn, increase oral hydration, and follow up with urologist. Levofloxacin administered without incident. [facility] [place] script to pt's pharmacy for Levofloxacin and Pyridium. Red flags discussed. Pt has no further questions. .................... .................... .................... .................... .................... .................... .................... . Disposition: Fulfilled Michelle Sharif MD [address] [facility],[address], [place], [phone], [facility] [facility] [employer] 05/20/2022 14:33:50
== END 2024-11-10 14:13 | disposition home or self-care (01) ==
LOC: HO.HCS 13:44
PROVIDERS: PCP Internal Medicine; Visit Provider Nurse Practitioner Family
DX: R07.2 Precordial pain (principal); R00.2 Palpitations; I10 Essential (primary) hypertension; I49.1 Atrial premature depolarization; Z01.810 Encounter for preprocedural cardiovascular examination
CPT/HCPCS: 93010; 99214; G2211

== ENCOUNTER → 2024-11-10 13:44 | Outpatient (BNVA) | payer OTHER, SELFPAY | PROVIDERS: PCP Internal Medicine; Visit Provider Nurse Practitioner Family | DX: Z01.810 Encounter for preprocedural cardiovascular examination (principal); I49.1 Atrial premature depolarization; I73.9 Peripheral vascular disease, unspecified; I10 Essential (primary) hypertension; R07.2 Precordial pain; R00.2 Palpitations; Z87.891 Personal history of nicotine dependence | CPT/HCPCS: 93005; 99212 ==

== ENCOUNTER 2024-11-13 05:41 | Day surgery (SDC) | payer OTHER, SELFPAY ==
--- OUTSIDE RECORDS SUMMARY | 2024-10-18 08:15 | XMS_ITS | Encounter Summary ---
Author Organization [employer] Address [address] [facility] 7t [place] [address] Care Team Providers Care Evp Head Of [employer] Experience Strategy Name Role Phone Niki Ramos MD Primary Care Provide r Encounter Details Date Type Department Care Team ([facility] st Contact Info) Description 05/27/2022 Abstract [facility] [address] [place] [address] Dental, Provider, DDS Social History Tobacco Use [...] on filedocumented in this encounter Care Teams Evp [employer] Experience Strategy Relationship Specialty Start Date End Date Niki Ramos MD [address] [place] [address] PCP - General Family Medicine 03/24/18 documented as of this encounter
--- OUTSIDE RECORDS SUMMARY | 2024-10-18 08:15 | XMS_ITS | Clinical Summary ---
Author Organization [employer] Address [address] [facility] 7t [place] [address] Care Team Providers Care Auxiliary Operator Name Role Phone Niki Ramos MD [...] day. 60 tablet 11 024 2024 Discontinued Active Problems Problem Noted [...] PM EST): I will refer him to museum informatics specialist Allergy 07/12/2023 Dyspnea on exertion 01/12/2023 [...] benefit from continued OP therapy, psychiatry and [facility] respite. At this time Jayesh Che [...] Provider, Generic External Data 09/25/2024 Orders Only [facility] [address] [place] [address] Niki Ramos MD 09/25/2024 Telephone [facility] [address] [place] [address] Niki Ramos MD Medication Question 09/16/2024 Refill [facility] [address] [place] [address] Niki Ramos MD Asthma in adult, mild intermittent, uncomplicated 09/13/2024 Orders Only [facility] External Provider, [facility] 09/12/2024 Refill [facility] [address] [place] [address] Niki Ramos MD 09/04/[address] [address] Niki Ramos MD Results 09/04/2024 Orders Only GENERIC EXTERNAL DATA DEPARTMENT Provider, Generic External Data 09/01/2024 10:45 AM EST Office Visit [facility] [address] [place] [phone] Niki Ramos MD Pruritus (Primary Dx); Mood disorder ([facility]/HCC); Essential hypertension; Colon cancer screening; Benign prostatic hyperplasia with lower urinary tract symptoms, symptom details unspecified 09/01/2024 Travel 08/31/2024 Orders Only [facility] [address] [place] [phone] Niki Ramos MD Vitamin D deficiency (Primary Dx) 08/31/2024 Telephone [facility] [address] [place] [address] Niki Ramos MD Medication Question 08/24/2024 10:00 AM EST Office Visit [facility] [address] [place] [address] Sundeep Felipe DMD from Last 3 Months [...] Procedure Name Priority Date/Time Associated Diagnosis Comments LACTIC ACID Routine 10/17/2024 10:00 AM EDT XR HAND 3+ VIEWS LEFT Routine 10/17/2024 9:39 AM EDT SED RATE BY MODIFIED WESTERGREN Routine 10/17/2024 8:18 AM EDT C-REACTIVE PROTEIN Routine 10/17/2024 8: 18 AM EDT COMPREHENSIVE METABOLIC PANEL Routine 10/17/2024 [...] Recently Relevant to Health Maintenance Results * Lactic Acid (10/17/2024 10:00 AM EDT) Lactic Acid 1.5 0.5 - 2.0 mmol/L [facility] 10/17/2024 10:0 0 AM EDT 10/17/2024 10:03 AM EDT us Generic External Data Provider LAB BLOOD ORDERAB LES Final Result [facility] [address] [place] [phone] * XR Hand 3+ Views Left (10/17/2024 9:39 AM EDT) Anatomical Region Laterality Modality Upper Extremities, Hand Left Radiogra phic Imaging 10/17/2024 9:39 AM EDT Narrative 10/17/2024 10:39 AM EDT ? [facility] ?[address] ?[place] [address] ?XRay Report ? Signed ? Patient: Chinedu,Jayesh ?MR#: [id number] ?? 6 ? : 1950 ?Acct:[id number] ? Age/Sex: 74 / M ?ADM Date: 10/17/24 ? Loc: HO.ED ? Attending Dr: ? Ordering Physician: Hannah Blakely ?? Date of Service: 10/17/24 ?? Procedure(s): XR hand LT min 3V ?? Accession Number(s): [id number] ? cc: Niki Ramos MD; Hannah Blakely ? EXAMINATION: ?? XR HAND, LEFT ? CLINICAL INFORMATION: ?? cellulitis, pain ? COMPARISON: ?? None available. ? TECHNIQUE: ?? PA, lateral, and oblique views of the left hand. ? FINDINGS: ?? No fracture, dislocation, or suspicious bone lesion. Normal bone ?? mineralization. ?? No region of permeative bone change is identified. Normal alignment. ?? Mild degenerative changes throughout the DIP joints of the digits, ?? involving the first MCP joint, and involving the CMC joint and STT ?? joints of the wrist. ? Diffuse dorsal soft tissue swelling. No soft tissue emphysema. No ?? radiopaque foreign body seen. ? XR/XR hand LT min 3V ?? IMPRESSION: ?? 1. No acute bony abnormalities. ?? 2. Dorsal soft tissue swelling. ? Electronically signed by: ??Mikey Roger MD ??10/17/2024 10:36 AM EDT RP ? Dictated By: ?Mikey Roger MD ? Signed By: ?<Electronically signed by Mikey Roger MD in OV> ?10/17/24 1036 ? DD/ 0939 ? TD/TT: 10/17/24 1018 ? Extrusion Manager: ? Procedure Note Emely, Vik - 04/15/[address] [address] XRay Report Signed Patient: Jayesh CheMR#: [id number] 6 : 1950Acct:[id number] Age/Sex: 74 / MADM Date: 10/17/24 Loc: HO.ED Attending Dr: Ordering Physician: Hannah Blakely Date of Service: 10/17/24 Procedure(s): XR hand LT min 3V Accession Number(s): [id number] cc: Niki Ramos MD; Hannah Blakely EXAMINATION: XR HAND, LEFT CLINICAL INFORMATION: cellulitis, pain COMPARISON: None available. TECHNIQUE: PA, lateral, and oblique views of the left hand. FINDINGS: No fracture, dislocation, or suspicious bone lesion. Normal bone mineralization. No region of permeative bone change is identified. Normal alignment. Mild degenerative changes throughout the DIP joints of the digits, involving the first MCP joint, and involving the CMC joint and STT joints of the wrist. Diffuse dorsal soft tissue swelling. No soft tissue emphysema. No radiopaque foreign body seen. XR/XR hand LT min 3V IMPRESSION: 1. No acute bony abnormalities. 2. Dorsal soft tissue swelling. Electronically signed by: Mikey Roger MD 10/17/2024 10:36 AM EDT Dictated By: Mikey Roger MD Signed By: <Electronically signed by Mikey Roger MD in OV> 10/17/24 1036 DD/ 0939 TD/TT: 10/17/24 1018 Extrusion Manager: [facility] External Provider IMG XR PROCEDURES Final Result * (ABNORMAL) CBC auto differential (10/17/2024 8:18 [...] 8:18 AM EDT 10/17/2024 8:25 AM EDT Generic External Data Provider LAB BLOOD ORDERAB LES Final Result Performing Organization Address [facility] de Phone Number [facility] [address] [place] [phone] * Sed Rate by Modified Westergren (10/17/2024 8:18 AM EDT) [facility] Erythrocyte Sedimentation Rate 8 0 - 15 MM/HR [facility] Comment:Patients with polycy themia and many hemoglobin abnormalitiesmay have depressed sed rates whereas patients with anemiamay have elevated sed rates. 10/17/2024 8:18 AM EDT 10/17/2024 9:50 AM EDT Generic External Data Provider LAB BLOOD ORDERAB LES Final Result Performing Organization Address [facility] de Phone Number [facility] [address] [place] [phone] * (ABNORMAL) C-reactive Protein (10/17/2024 8:18 AM EDT) [facility] C Reactive Protein 4.30(H) < or = 0.50 mg/dL [facility] 10/17/2024 8:18 AM EDT 10/17/2024 8:25 AM EDT Generic External Data Provider LAB BLOOD ORDERAB LES Final Result Performing Organization Address [facility] de Phone Number [facility] [address] [place] [phone] * (ABNORMAL) Comprehensive Metabolic Panel (10/17/2024 8:18 AM EDT) Only the most recent of2 resultswithin the time period is included. [facility] Sodium 140 135 - 145 mmol/L [facility] [...] Kidney Disea se: Estimated GFR < 60 mL/min/1.90w0Rcsjpg Kidney Disease: Estimated GFR < 15 mL/min/1.73m2 [...] Final Result [facility] [address] [place] [phone] * Stress test with myocardial perfusion (09/13/2024 9:40 AM EDT) 09/13/2024 9:40 AM EDT Narrative [facility] - 09/17/2024 11:42 AM EDT ? [facility] ?[address] ?[place] [address] ?Nuclear Medicine Report ? Signed ? Patient: Che,Jayesh ?MR#: [id number] ?? 6 ? : 1950 ?Acct:[id number] ? Age/Sex: 74 / M ?ADM Date: 09/13/24 ? Loc: HO.CARD ? Attending Dr: Ralph Lyman MD ? Ordering Physician: Ralph Lyman MD ?? Date of Service: 09/13/24 ?? Procedure(s): NM cardiolite stress test ?? Accession Number(s): [id number] ? cc: Niki Ramos MD; Ralph Lyman [...] DD/ 0940 ? TD/TT: 09/15/24 1210 ? Extrusion Manager: ? Procedure Note Dongoyoter, Image - 09/17/2024 [place] [address] Nuclear Medicine Report Signed Patient: Luis Che#: [id number] 6 : 1950Acct:[id number] Age/Sex: 74 / MADM Date: 09/13/24 Loc: MARY ELLENCarlosRIYA Attending Dr: Ralph Lyman MD Ordering Physician: Ralph Lyman MD Date of Service: 09/13/24 Procedure(s): TX cardiolite stress test Accession Number(s): [id number] cc: Niki Ramos MD; Ralph Lyman MD [...] 09/17/24 1139 DD/ 0940 TD/TT: 09/15/24 1210 Extrusion Manager: [facility] External Provider CV STRE SS PROCEDURES Final Result [facility] [address] [place] [phone] * (ABNORMAL) Vitamin D, 25-Hydroxy, Total, Immunoassay (09/04/2024 7:59 AM EST) Vitamin D 25-OH Total 26.9(L) >30 ng/mL [facility] Comment:Health Based Referen ce Values*< 20 ng/mL Olqykjsyn82-00 ng/mL Insufficient> 30 ng/mL Sufficient*Leora CANDELARIA. N [...] BLOOD ORDERABLES Final Result Performing Organization Address [facility]/ZIP Co de Phone Number [facility] [address] [place] [phone] * TSH with Reflex to Free T4 (09/04/2024 7:59 AM EST) TSH reflex Free T4 1.23 0.32 - 4.0 uIU/mL [facility] Blood Venous blood specimen / Unknown 09/04/2024 7:59 AM EST 09/04/2024 11:36 AM EST Niki Simmons MD LAB BLOOD ORDERABLES Final Result Performing Organization Address [facility] Co de Phone Number [facility] [address] [place] [phone] * (ABNORMAL) PSA, Total With Reflex [...] ORDERAB LES Final Result Performing Organization Address [facility] Co de Phone Number [facility] [address] [place] [phone] * Hepatitis C Antibody with Reflex [...] BLOOD ORDERABLES Final Result Performing Organization Address [facility] Co de Phone Number [facility] [address] [place] [phone] * HIV-1/2 Antigen and Antibodies, Fourth [...] below the limit ofdetection of this assay.The [employer] Alinity HIV Ag/Ab Combo assay result andsupplemental assay results should be interpreted inconjunction with the patient's clinical presentation,history and other laboratory results. If the results areinconsistent with clinical evidence, additional testing issuggested to confirm the result. Blood Venous blood specimen / Unknown 09/04/2024 7:59 AM EST 09/04/2024 11:36 AM EST us Niki Simmons MD LAB BLOOD ORDERABLES Final Result Performing Organization Address [facility]/ZIP Co de Phone Number [facility] [address] [place] [phone] * Hemoglobin A1c (09/04/2024 7:59 AM EST) Hemoglobin A1c 5.7 <6.0 % [facility] Comment:Hemoglobin A1C Refer ence Range [...] asaverage glucose, using the formula of the B3B-GsdzdfaGfnaayi Glucose study (ADAG), Diabetes Care, Vol.31,#8,Feb. 2007 Blood Venous blood specimen / Unknown 09/04/2024 7:59 AM EST 09/04/2024 11:36 AM EST us Niki Simmons MD LAB BLOOD ORDERABLES Final Result Performing Organization Address [facility]/ZIP Co de Phone Number [facility] [address] [place] [phone] * Lipid Panel, Standard (09/04/2024 7:59 AM EST) Triglycerides 74 <150 mg/dL [facility] Comment:Desirable Triglyceri de: less than [...] 190 mg/dL HDL Cholesterol 45 >40 mg/dL [facility] Comment:Desirable HDL: great er than 40 mg/dL Note: This HDL assay may give artificially low results in patients with liver disease. Blood Venous blood specimen / Unknown 09/04/2024 7:59 AM EST 09/04/2024 11:36 AM EST Niki Simmons MD LAB BLOOD ORDERABLES Final Result [facility] [address] [place] [address] [phone] * Colonoscopy (03/07/2020) Historical Provider HEALTH MAINTENANCE Final Result from Last 3 Months or Most Recently Relevant to Health Maintenance Insurance [facility] Care Teams Auxiliary Operator Relationship Specialty Start Date End Date Niki Ramos MD [address] [place] [phone] PCP - General Family Medicine 03/24/18
--- OUTSIDE RECORDS SUMMARY | 2024-10-18 08:15 | XMS_ITS | Encounter Summary ---
Author Organization [employer] Address [address] [facility] [address] 7[address] [place] [address] Care Team Providers Care Cuff Setter Name Role Phone Niki Ramos MD Primary Care Provide r Encounter Details Date Type Department Care Team (Late st Contact Info) Description 02/19/2023 Orders Only [facility] [address] [place] [address] Janelle Jones LPN Social History Tobacco Use [...] documented as of this encounter Care Teams Cuff Setter Relationship Specialty Start Date End Date Niki Ramos MD [address] [place] [address] PCP - General Family Medicine 03/24/18 documented as of this encounter
--- OUTSIDE RECORDS SUMMARY | 2024-10-18 08:15 | XMS_ITS | Encounter Summary ---
Author Organization [employer] Address [address] [facility] [address]t [place] [address] Care Team Providers Care Physical Design Engineer Name Role Phone Niki Ramos MD Primary Care Provide r Encounter Details Date Type Department Care Team (Latest Contact Info) Description 04/09/2022 Abstract [facility] CONVERSIONS Dental, Provider, DDS Social History [...] on filedocumented in this encounter Care Teams Physical Design Engineer Relationship Specialty Start Date End Date Niki Ramos MD [address] [place] [address] PCP - General Family Medicine 03/24/18 documented as of this encounter
--- OUTSIDE RECORDS SUMMARY | 2024-10-18 08:15 | XMS_ITS | Encounter Summary ---
Author Organization [employer] Address [address] [facility] 7t [place] [address] Care Team Providers Care Back Stayer Name Role Phone Niki Ramos MD Primary Care Provide r Encounter Details Date Type Department Care Team (Late st Contact Info) Description 03/12/2023 Orders Only [facility] [address] [place] [address] Provider, Yao, Social History Tobacco Use Types [...] documented as of this encounter Care Teams Back Stayer Relationship Specialty Start Date End Date Niki Ramos MD [address] [place] [address] PCP - General Family Medicine 03/24/18 documented as of this encounter
--- OUTSIDE RECORDS SUMMARY | 2024-10-18 08:15 | XMS_ITS | Encounter Summary ---
Author Organization [employer] Address [address] [facility] 7t [place] [address] Care Team Providers Care Dredge Pipeman Name Role Phone Niki Ramos MD Primary Care Provide r Encounter Details Date Type Department Care Team (Late st Contact Info) Description 06/05/2022 Abstract [facility] ADULT DENTAL [address] [place] [address] Sundeep Felipe DMD [address] [place] [address] Social History Tobacco Use Types Packs/Day Years [...] on filedocumented in this encounter Care Teams Dredge Pipeman Relationship Specialty Start Date End Date Niki Ramos MD [address] [place] [address] PCP - General Family Medicine 03/24/18 documented as of this encounter
--- OUTSIDE RECORDS SUMMARY | 2024-10-18 08:16 | XMS_ITS | Encounter Summary ---
Author Organization [employer] Address 75 [facility] 7t [place] [address] Care Team Providers Care Library Serials Assistant Name Role Phone Niki Ramos MD Primary Care Provide r Encounter Details Date Type Department Care Team (Latest Contact Info) Description 11/08/2018 Abstract [facility] CONVERSIONS Dental, Provider, DDS Social History [...] on filedocumented in this encounter Care Teams Library Serials Assistant Relationship Specialty Start Date End Date Niki Ramos MD [address] [place] [address] PCP - General Family Medicine 03/24/18 documented as of this encounter
--- OUTSIDE RECORDS SUMMARY | 2024-10-18 08:16 | XMS_ITS | Encounter Summary ---
Author Organization [employer] Address 75 [facility] 7t [place] [address] Care Team Providers Care Agriscience Teacher Name Role Phone Niki Ramos MD Primary Care Provide r Encounter Details Date Type Department Care Team (Late st Contact Info) Description 07/30/2022 Abstract [facility] ADULT DENTAL [address] [place] [address] Sundeep Felipe, ROBERTO [address] [place] [address] Social History Tobacco Use Types Packs/Day Years [...] on filedocumented in this encounter Care Teams Agriscience Teacher Relationship Specialty Start Date End Date Niki Ramos MD [address] [place] [address] PCP - General Family Medicine 03/24/18 documented as of this encounter
--- OUTSIDE RECORDS SUMMARY | 2024-10-18 08:16 | XMS_ITS | Encounter Summary ---
Author Organization [employer] Address [address] [facility] [address] [place] [address] Care Team Providers Care Professor Of Astronomy Name Role Phone Niki Ramos MD Primary Care Provide r Encounter Details Date Type Department Care Team ([facility] st Contact Info) Description 10/17/2024 Orders Only [...] VIEWS LEFT Routine 10/17/2024 9:39 AM EDT CBC WITH AUTO DIFFERENTIAL Routine 10/17/2024 8:18 AM EDT SED RATE BY MODIFIED WESTERGREN Routine 10/17/2024 8:18 AM EDT C-REACTIVE PROTEIN Routine 10/17/2024 8: 18 AM EDT COMPREHENSIVE METABOLIC PANEL Routine 10/17/2024 8:18 AM EDT documented in this encounter Results * Lactic Acid (10/17/2024 10:00 AM EDT) Lactic Acid 1.5 0.5 - 2.0 mmol/L [facility] 10/17/2024 10:0 0 AM EDT 10/17/2024 10:03 AM EDT us Generic External Data Provider LAB BLOOD ORDERAB LES Final Result [facility] [address] [place] [phone] * XR Hand 3+ Views Left (10/17/2024 9:39 AM EDT) Anatomical Region Laterality Modality Upper Extremities, Hand Left Radiogra phic Imaging 10/17/2024 9:39 AM EDT Narrative 10/17/2024 10:39 AM EDT ? [facility] ?[address] ?[place] [address] ?XRay Report ? Signed ? Patient: Che,Jayesh ?MR#: [id number] ?? 6 ? : 1950 ?Acct:[id number] ? Age/Sex: 74 / M ?ADM Date: 10/17/24 ? Loc: HO.ED ? Attending Dr: ? Ordering Physician: Hannah Blakely ?? Date of Service: 10/17/24 ?? Procedure(s): XR hand LT min 3V ?? Accession Number(s): [id number] ? cc: Niki Ramos MD; Hannah Blakely [...] DD/ 0939 ? TD/TT: 10/17/24 1018 ? Centrifugal Wax Molder: ? Procedure Note Vik Han - 10/17/[address] [address] XRay Report Signed Patient: Jayesh Che#: [id number] 6 : 1950Acct:[id number] Age/Sex: 74 / MADM Date: 10/17/24 Loc: HO.ED Attending Dr: Ordering Physician: Hannah Blakely Date of Service: 10/17/24 Procedure(s): XR hand LT min 3V Accession Number(s): [id number] cc: Niki Ramos MD; Hannah Blakely EXAMINATION: [...] 10/17/24 1036 DD/ 0939 TD/TT: 10/17/24 1018 Centrifugal Wax Molder: us [facility] External Provider IMG XR PROCEDURES Final Result * Sed Rate by Modified Catarinaren (10/17/2024 8:18 AM EDT) Erythrocyte Sedimentation Rate 8 0 - 15 MM/HR [facility] Comment:Patients with polycy themia and many hemoglobin abnormalitiesmay have depressed sed rates whereas patients with anemiamay have elevated sed rates. 10/17/2024 8:18 AM EDT 10/17/2024 9:50 AM EDT Generic External Data Provider LAB BLOOD ORDERAB LES Final Result [facility] [address] [place] [phone] [phone] * (ABNORMAL) C-reactive Protein (10/17/2024 8:18 AM EDT) C Reactive Protein 4.30(H) < or = 0.50 mg/dL [facility] 10/17/2024 8:18 AM EDT 10/17/2024 8:25 AM EDT us Generic External Data Provider LAB BLOOD ORDERAB LES Final Result [facility] [address] [place] [phone] * (ABNORMAL) Comprehensive Metabolic Panel (10/17/2024 8:18 AM EDT) Pathologist [facility] [place] Sodium 140 135 - 145 mmol/L [facility] Potassium 3.6 3.3 - 5.1 mmol/L [facility] Chloride 107 96 - 108 mmol/L [facility] Carbon Dioxide 26 22 - 29 mmol/L [facility] Anion Gap 11(L) 12 - 20 [facility] Urea Nitrogen (BUN) 15 9 - 16 mg/dL [facility] Creatinine, Serum 0.80 0.5 - 1.4 mg/dL [facility] Creatinine Clr Calc Pharmacy 75.7 [facility] Comment:eGFR (calculated fro m the MDRD study equation) and eCrCl(calculated from the Cockcroft-Gault equation) are based ondifferent parameters and may not yield comparable results.If eCrCl result is absurd, please check patient'sheight/weight. Estimated Glomerular Filt Rate >60 [facility] Comment:Chronic Kidney Disea se: Estimated GFR < 60 mL/min/1.73s3Bfokml Kidney Disease: Estimated GFR < 15 mL/min/1.73m2 Glucose 161(H) 60 - 115 mg/dL [facility] Calcium 9.6 8.4 - 10.2 mg/dL [facility] Bilirubin, Total 1.4(H) 0.0 - 1.0 mg/dL [facility] Aspartate Amino Transferase 25 5 - 37 U/L [facility] Alanine Aminotransferase 40 0 - 40 U/L [facility] Total Protein 6.9 6.5 - 8.0 g/dL [facility] Albumin Level 4.4 3.5 - 5.0 g/dL [facility] Alkaline Phosphatase 55 39 - 117 U/L [facility] 10/17/2024 8:18 AM EDT 10/17/2024 8:25 AM EDT us Generic External Data Provider LAB BLOOD ORDERAB LES Final Result [facility] [address] [place] [address] [phone] * (ABNORMAL) CBC auto differential (10/17/2024 8:18 AM EDT) White Blood Count 11.2(H) 4.8 - 10.8 X10*3/uL [facility] Red Blood Count 4.90 4.60 - 5.80 X10*6/uL [facility] Hemoglobin 14.2 14.0 - 18.0 g/dl [facility] Hematocrit 42.1 42.0 - 52.0 % [facility] Mean Corpuscular Volume 85.9 80.0 - 98.0 fL [facility] Mean Corpuscular Hemoglobin 29.0 27.0 - 33.0 pg [facility] Mean Corpuscular HGB Conc 33.7 31.0 - 36.0 g/dl [facility] Red Cell Distribution Width 12.4 11.0 - 16.0 % [facility] Platelet Count 171 160 - 400 X10*3/uL [facility] Mean Platelet Volume 9.8 9.4 - 12.4 fL [facility] Neutrophils Percent Auto 85.6(H) 45 - 73 % [facility] Imm Gran Pct Auto 0.4 0.0 - 0.4 % [facility] Lymphocytes Percent Auto 7.0(L) 20 - 40 % [facility] Monocytes Percent Auto 6.6 2 - 11 % [facility] Eosinophils Percent Auto 0.1 0 - 4 % [facility] Basophils Percent Auto 0.3 0 - 2 % [facility] NRBC Pct Auto 0.0 0.0 - 0.2 /100WBC [facility] Neutrophils Absolute Auto 9.6(H) 2.0 - 8.3 x10*3/uL [facility] Imm Gran Abs Auto 0.05(H) 0.00 - 0.03 X10*3/uL [facility] Lymphocytes Absolute Auto 0.8(L) 1.2 - 4.9 X10*3/uL [facility] Monocytes Absolute Auto 0.7 0.1 - 1.2 X10*3/uL [facility] Eosinophils Absolute Auto 0.0 0.0 - 0.4 X10*3/uL [facility] Basophils Absolute Auto 0.0 0.0 - 0.2 X10*3/uL [facility] NRBC Abs Auto 0.000 0.0 - 0.012 X10*3/uL [facility] 10/17/2024 8:18 AM EDT 10/17/2024 8:25 AM EDT us Generic External Data Provider LAB BLOOD ORDERAB LES Final Result Performing Organization Address City/State/[facility] Co de Phone Number [facility] [address] [place] [phone] documented in this encounter Visit Diagnoses Not on filedocumented in this encounter Additional Health Concerns Assessment Noted Time PHQ-9 Depression Total Score: 0 10/04/19 24 9:42 AM EDT documented as of this encounter Care Teams Professor Of Astronomy Relationship Specialty Start Date End Date Niki Ramos MD [address] [place] [address] PCP - General Family Medicine 03/24/18 documented as of this encounter
--- OUTSIDE RECORDS SUMMARY | 2024-10-18 08:16 | XMS_ITS | Encounter Summary ---
Author Organization [employer] Address [address] [facility] 7t [place] [address] Care Team Providers Care Director Of Community Services Name Role Phone Niki Ramos MD Primary Care Provide r Encounter Details Date Type Department Care Team (Late st Contact Info) Description 06/22/2022 Abstract [facility] ADULT DENTAL [address] [place] [address] Sachin Chow, DMD [address] [place] [address] Social History Tobacco Use Types Packs/Day Years [...] on filedocumented in this encounter Care Teams Director Of Community Services Relationship Specialty Start Date End Date Niki Ramos MD [address] [place] [address] PCP - General Family Medicine 03/24/18 documented as of this encounter
--- OUTSIDE RECORDS SUMMARY | 2024-10-18 08:16 | XMS_ITS | Encounter Summary ---
Author Organization [employer] Address 75 [facility] 7t [place] [address] Care Team Providers Care Soa Architect Name Role Phone Niki Ramos MD Primary Care Provide r Encounter Details Date Type Department Care Team (Late st Contact Info) Description 09/03/2022 Abstract [facility] ADULT DENTAL [address] [place] [address] Sundeep Felipe, ROBERTO [address] [place] [address] Social History Tobacco Use Types Packs/Day Years [...] on filedocumented in this encounter Care Teams Soa Architect Relationship Specialty Start Date End Date Niki Ramos MD [address] [place] [address] PCP - General Family Medicine 03/24/18 documented as of this encounter
[2024-11-09 11:33] VITALS: BMI 26.5
[2024-11-13] VITALS (7 sets, daily range): BP systolic 103–145; BP diastolic 58–79; PULSE 65–88; RESP 9–18; TEMP 36.5–37; O2SAT 92–97
[2024-11-13] MEDS: Lactated Ringers 1,000 ML 100 ML IVCONT (06:59)
--- NOTE | 2024-11-13 07:30 | HO.ANESPROP2 ---
Documented by User: Paula Osorio NP 11/10/24 10:06 HPI - Anesthesia Eval Consult details Narrative: 74yo M for Laser Ablation Prostate w/Green Light, Prostate Needle Biopsy s/p hand I&D 10/2024 with GA-LMA 5 PMFSH Active Problems Active Problems: All Active Problems Abscess of left hand (Acute) Asthma (Acute) Palpitations (Acute) Elevated PSA (Acute) Personal history of nicotine dependence (Acute) COPD (chronic obstructive pulmonary disease) (Acute) HTN (hypertension) (Acute) Precordial chest pain (Acute) COVID-19 (Acute) Nephrolithiasis (Acute) Urinary retention with incomplete bladder emptying (Acute) Gross hematuria (Acute) BPH w urinary obs/LUTS (Acute) Past Medical History Medical History Vitamin D deficiency Hematuria PVD (peripheral vascular disease) Esophageal dysphagia BPH loc w urin obs/LUTS Asthma HTN (hypertension) Family History Family History Father No problems noted. Mother No problems noted. Family history of problems with anesthesia: No Surgical History Surgical History (Updated 11/13/24 @ 07:10 by Citlalli Ellis RN) History of hand surgery Hx of colonoscopy History of surgery Hx of prostatectomy History of Problems with Anesthesia: No Social History Social History Housing: Apartment Do you presently have visiting nurse or other home services: No Alcohol intake: former Patient Tobacco Use Status: Former Tobacco user Tobacco use type: Cigarette Years Smoked: started in his 20's, quit 13 years ago Smoked in Last 30 Days: No e-Cigarette/Vaping Use: Former Use Use of substances other than those prescribed or required for medical reasons: No Are you DNR?: No Advance Directives: No Advance Directives Information Provided: Yes service: No Current occupational status: retired and disabled 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 Meds Allergies Allergy/AdvReac Type Severity Reaction Status Date / Time oxycodone [From PERCOCET] Allergy Unknown HIVES Verified 11/13/24 06:35 Home Medications ?Medication ?Instructions ?Recorded ?Confirmed ?Last Taken ?Type albuterol sulfate 90 mcg/actuation 2 puff PO Q4-6H PRN Shortness Of 08/27/20 11/13/24 Unknown History aerosol inhaler Breath Or Wheezing atorvastatin 40 mg tablet 40 mg PO BEDTIME 08/27/20 11/13/24 10/16/24 History zolpidem 5 mg tablet 5 mg PO BEDTIME PRN Insomnia 08/27/20 11/13/24 10/16/24 History hydroxyzine HCl 25 mg tablet 25 mg PO DAILY PRN Anxiety 04/22/21 11/13/24 Unknown History buspirone 10 mg tablet 10 mg PO BID anxiety 12/17/21 11/13/24 10/17/24 History escitalopram oxalate 10 mg tablet 10 mg PO DAILY 12/17/21 11/13/24 10/17/24 History lorazepam 0.5 mg tablet 0.5 mg PO BID PRN Anxiety 05/12/23 11/13/24 Unknown History montelukast 10 mg tablet 10 mg PO BEDTIME 05/12/23 11/13/24 10/17/24 History budesonide 160 mcg-glycopyr 9 2 inh inhalation BID 10/17/24 11/13/24 10/17/24 History mcg-formot 4.8 mcg/actuation HFA inhaler (Breztri Aerosphere) cholecalciferol (vitamin D3) 25 25 mcg PO DAILY 10/17/24 11/13/24 10/17/24 History mcg (1,000 unit) tablet hydrochlorothiazide 12.5 mg tablet 12.5 mg PO DAILY 10/17/24 11/13/24 10/17/24 History Exam Height,Weight and Vital Signs: Height 5 ft 6 in Weight 74.389 kg Pertinent Lab Results Pertinent Lab Results: Laboratory Tests 10/30/24 11:20 WBC 11.0 H Hgb 13.1 L Hct 39.1 L Plt Count 223 Sodium 133 L Potassium 4.0 Chloride 99 Carbon Dioxide 26 BUN 15 Creatinine 0.73 Narrative Narrative: EKG 10/2024 Vent. Rate : 92 BPM Atrial Rate : 92 BPM P-R Int : 124 ms QRS Dur : 98 ms QT Int : 346 ms P-R-T Axes : 67 60 53 degrees QTcB Int : 427 ms Normal sinus rhythm Normal ECG When compared with ECG of 16-Nov-2023 14:35, No significant change was found Assessment and Plan Assessment Anesthesia Assessment: Chart Reviewed Final Anesthetic Review Family History of Problems with Anesthesia: No History of Problems with Anesthesia: No Documented by User: Cande Cardozo, 11/13/24 07:59 PMFSH Past Medical History Medical History Vitamin D deficiency Hematuria PVD (peripheral vascular disease) Esophageal dysphagia BPH loc w urin obs/LUTS Asthma HTN (hypertension) Family History Family History Father No problems noted. Mother No problems noted. Family history of problems with anesthesia: No Surgical History Surgical History (Updated 11/13/24 @ 07:10 by Citlalli Ellis RN) History of hand surgery Hx of colonoscopy History of surgery Hx of prostatectomy History of Problems with Anesthesia: No Social History Social History Housing: Apartment Do you presently have visiting nurse or other home services: No Alcohol intake: former Patient Tobacco Use Status: Former Tobacco user Tobacco use type: Cigarette Years Smoked: started in his 20's, quit 13 years ago Smoked in Last 30 Days: No e-Cigarette/Vaping Use: Former Use Use of substances other than those prescribed or required for medical reasons: No Are you DNR?: No Advance Directives: No Advance Directives Information Provided: Yes service: No Current occupational status: retired and disabled 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 Meds Allergies Allergy/AdvReac Type Severity Reaction Status Date / Time oxycodone [From PERCOCET] Allergy Unknown HIVES Verified 11/13/24 06:35 Home Medications ?Medication ?Instructions ?Recorded ?Confirmed ?Last Taken ?Type albuterol sulfate 90 mcg/actuation 2 puff PO Q4-6H PRN Shortness Of 08/27/20 11/13/24 Unknown History aerosol inhaler Breath Or Wheezing atorvastatin 40 mg tablet 40 mg PO BEDTIME 08/27/20 11/13/24 10/16/24 History zolpidem 5 mg tablet 5 mg PO BEDTIME PRN Insomnia 08/27/20 11/13/24 10/16/24 History hydroxyzine HCl 25 mg tablet 25 mg PO DAILY PRN Anxiety 04/22/21 11/13/24 Unknown History buspirone 10 mg tablet 10 mg PO BID anxiety 12/17/21 11/13/24 10/17/24 History escitalopram oxalate 10 mg tablet 10 mg PO DAILY 12/17/21 11/13/24 10/17/24 History lorazepam 0.5 mg tablet 0.5 mg PO BID PRN Anxiety 05/12/23 11/13/24 Unknown History montelukast 10 mg tablet 10 mg PO BEDTIME 05/12/23 11/13/24 10/17/24 History budesonide 160 mcg-glycopyr 9 2 inh inhalation BID 10/17/24 11/13/24 10/17/24 History mcg-formot 4.8 mcg/actuation HFA inhaler (Breztri Aerosphere) cholecalciferol (vitamin D3) 25 25 mcg PO DAILY 10/17/24 11/13/24 10/17/24 History mcg (1,000 unit) tablet hydrochlorothiazide 12.5 mg tablet 12.5 mg PO DAILY 10/17/24 11/13/24 10/17/24 History Exam Exam Date and Time: 11/13/24 0730 Height,Weight and Vital Signs: Height 5 ft 6 in Weight 74.389 kg Vital Signs Temperature 97.7 F 11/13/24 06:45 Pulse Rate 65 11/13/24 06:45 Respiratory Rate 17 11/13/24 06:45 Blood Pressure 145/79 H 11/13/24 06:45 Pulse Oximetry 97 11/13/24 06:45 Oxygen Delivery Method Room Air 11/13/24 06:45 Temperature 97.7 F 11/13/24 06:45 Pulse Rate 65 11/13/24 06:45 Respiratory Rate 17 11/13/24 06:45 Blood Pressure 145/79 H 11/13/24 06:45 Pulse Oximetry 97 11/13/24 06:45 Oxygen Delivery Method Room Air 11/13/24 06:45 Airway Mallampati Class: II TM Dist: >3cm Neck ROM: Full Loose/Missing/Broken Teeth: No (patient denies any loose or broken teeth) Heart: S1S2 Lungs: CTAB Assessment and Plan Assessment Anesthesia Assessment: Anesthesia Plan Discussed and Chart Reviewed Final Anesthetic Review Family History of Problems with Anesthesia: No History of Problems with Anesthesia: No NPO: Yes ASA Class: III Final Preanesthetic Review: No Changes in Pt Med Stat, Meds/Allgs Chart Reviewed, Consent Obtained/Reviewed (lighting specialist at bedside for translation) and Anes Risks/Benef Reviewed Patient Risk: Low Procedure Risk: Low Anesthetic Plan Anesthetic Plan: GA and Agree w/ Assess. and Plan Disposition: Standard PACU
--- NOTE | 2024-11-13 07:37 | P.HPSUR_ITS ---
Pre-Procedural Eval Section A - 24 Hr Update-Section A only Date of Service: 11/13/24 The patient is an INPATIENT: No Changes since office visit: No Cold of Flu in the past 2 weeks, No New Medical Problems, No Changes in Medication and No Patient answered all questions The patient has been examined within 24 hours of the surgical procedure. The History & Physical has been completed within 30 days and I have reviewed it.: No Section B - Complete if H&P > 30 days Chief Complaint: Benign prostatic hyperplasia with lower urinary tr Details of Present Illness: Enlarged Prostate - 80 gm. MRI -Right base lateral peripheral zone circumscribed moderately T2 hypointense and moderately suspicious signal abnormality with associated moderate restricted diffusion and positive early enhancement. -Left mid transition zone plus left mid anterior fibromuscular stroma mass with marked restricted diffusion and no early enhancement. Relevant Family History (Specify if Yes): No Relevant Social History: None Present Medications: see Short Stay Collaborative assessment Medical History: No relevant PMH History of Previous Operations: Relevant previous surgery/procedure and date(s) Allergies: Allergies Allergy/AdvReac Type Severity Reaction Status Date / Time oxycodone [From PERCOCET] Allergy Unknown HIVES Verified 11/13/24 06:35 Review of Systems Sugical H&P ROS: Negative: Constitution, Cardiovascular, Respiratory, Neurological, Psychiatric, Hem-Onc, Allergic/Immunologic, Gastrointestinal, Genitourinary, Musculoskeletal, Integumentary, Endocrine and Eyes/Ears/N ose/Throat Exam Surgical H&P Exam: Normal: HEENT, Normal: Heart, Normal: Lungs, Normal: Extremities, Normal: Abdomen, Normal: Skin and Normal: Neurological Plan Diagnosis/Plan: Unchanged I have reviewed the history and physical and performed a pertinent physical examination on my patient. No changes have occurred unless specified. Time Spent With Patient Time: Total time managing care of this patient today ____ minutes.
[2024-11-13] MEDS: levoFLOXacin/D5W 500 MG/100 ML PIGGYBACK 100 MG IV (07:49)
--- NOTE | 2024-11-13 08:37 | W.PM.OPN ---
Operative Note Operative Note Date of Service: 11/13/24 Narrative: PreOperative Diagnosis: Bladder outlet obstruction, elevated PSA, lesion on prostate MRI Post Operative Diagnosis: Bladder outlet obstruction Procedure: 1. transrectal ultrasound measurement of prostate 2. transrectal ultrasound-guided pudendal nerve block 3. transrectal ultrasound-guided prostate biopsy 12 core GreenLight Laser Enucleation of the prostate CPT 94610 CPT code 79195: Transrectal ultrasound; this is a diagnostic test for evaluation of the prostate and surrounding structures, looking for abnormalities or suspicious areas worrisome for cancer CPT code 55989: Biopsy, prostate; needle or punch, single or multiple, any approach Surgeon: Dr Gilles Whitley Anesthesia: General History of bladder outlet obstruction. Elevated PSA with MRI lesion. Recommend prostate biopsy. Also noted to have progressive recurrent BPH symptoms. Prior procedure 2017. Risks and benefits have been discussed. Focus was placed on development of retrograde ejaculation which is a normal part of this procedure. Procedure: After informed consent was verified the patient was brought to the operating room and placed in a supine position. Anesthesia was administered per protocol. Patient was placed in modified dorsal lithotomy position and prepped and draped in a sterile fashion. Safety pause time-out was confirmed. Antibiotics have been given. JONO was performed to dilate rectal sphincter Iodine 10cc with 60 cc gel was placed per rectum to reduce infection risk using a catheter tip syringe. 8 Hz Alex rectal end-fire ultrasound probe was placed transrectally without difficulty. The prostate was visualized. Seminal vesicles were normal. Prostate margins were clearly demarcated. Bladder was seen superiorly. No cystic structures were noted yes calcifications were noted at the surgical margin The prostate was otherwise heterogenous in nature - no clear nodularity on US The prostate was measured in 3 dimensions Prostatic Width: [] cm Prostatic Height: [] cm Urethral Length: [] cm Total volume equals : 75 ml An ultrasound-guided pudendal nerve block was performed using a 22 gauge spinal needle in the sagittal plane. 4 cc of 1% lidocaine placed at the junction of each seminal vesicle and 2 cc placed at the apex of the prostate. A 12 core biopsy was performed with 6 cores each side using an 18 gauge prostate biopsy gun. Two cores each were taken at the prostate apex, mid and base on each side. Cores were spaced between lateral and medial aspects. Each core was examined as placed on specimen foam as part of supplier quality engineer to ensure a minimum 1 cm of length and minimal discontinuity. A Twenty-four Romanian laser cystoscope was inserted per urethra. No abnormalities were found of the anterior and bulbar urethra. The prostatic urethra shows recurrent tissue predominantly on the left. High-riding bladder neck. Using a GreenLight laser with initial settings of 80 paul incisions were made at the 5 and 7 o'clock position. The incisions were taken down from the bladder neck down to the area just proximal of the veru. These were gradually deepened in order to define the lateral aspects of the median lobe area. The deep boundary of enucleation was defined by the prostate surgical capsule. Once clearly defined the grooves were extended in the lateral directions in order to create a deep groove. The remnant median lobe was then ablated and enucleated tissue released into the bladder with the laser power increased to 120 W. Once the median lobe area had been cleared, attention was directed to the lateral lobes. Starting with the patient's left lateral lobe. First the 05:00 o'clock groove was further developed. This was moved in the lateral direction to undermine the tissue on the lateral side running from the bladder neck to the prostate apex. The ureteric orifice was used to guide incisions. The laser fiber was placed at the 1 o'clock position and a secondary groove was developed down to the level of prostatic capsule. The creation of a second deep groove defined a segment of intervening tissue similar to a slice of orange. At the apex of the prostate the laser was used to vertically link the two grooves releasing the intervening tissue and creating a segment of tissue. This tissue was then removed with a combination of enucleation and ablation working from the apex toward the bladder neck. A similar procedure was repeated on the patient's right-hand side. The only differences being the position of the lateral groove at he 7 o'clock position and the secondary groove at the 11 o'clock position, Otherwise the procedure was developed in a mirror fashion. One hundred twenty paul. After the majority of tissue had been debulked remnant tissue was ablated with the side fire laser and the curve of the prostate followed up each side wall clearly defining the anterior remnant strip that remained between the 11 and 1 o'clock positions. In this case the anterior tissue protruded into the prostatic fossa and was partially ablated with the laser At completion debris and pieces of prostate were removed from the bladder with irrigation. Both ureteric orifices were reviewed again in shown to be patent in away from any areas of energy damage. The apical area was reviewed and any stray mucosal ooze was controlled. A 22 Romanian 30 cc balloon Fang catheter was placed into the bladder using a flexible stylet. Clear efflux was obtained upon irrigation with a Bobby piston syringe. 30 cc was placed in the balloon and gentle traction was placed. A snap was used to hold tension on the catheter to control bleeding during patient moved and transported. A drainage bag was placed. Once transportation is complete to the PACU the snap will be removed. The patient tolerated the procedure well, he was extubated in the operating and transferred in a stable condition to the recovery area. Total Power 90 kW Lasing time 15:07 Pathology: Prostate tissue 12 core prostate biopsy. Drains: Fang catheter
== END 2024-11-13 10:10 | disposition home or self-care (01) ==
PROVIDERS: PCP Internal Medicine; Visit Provider Urology
PROC: (CPT 52648; principal; 2024-11-13 07:30)
PROC: (CPT 55700; 2024-11-13 07:30)
DX: C61 Malignant neoplasm of prostate (principal); N40.1 Benign prostatic hyperplasia with lower urinary tract symptoms; R97.20 Elevated prostate specific antigen [PSA]; N32.0 Bladder-neck obstruction
CPT/HCPCS: 52649; 55700; 76942; 88305; 88344; J1100; J1885; J1956; J2003; J2405; J2704; J3010

== ENCOUNTER → 2024-11-13 05:41 | Outpatient (BNV) | payer OTHER, SELFPAY | PROVIDERS: PCP Internal Medicine; Visit Provider Urology | DX: N32.0 Bladder-neck obstruction (principal); N42.9 Disorder of prostate, unspecified; R97.20 Elevated prostate specific antigen [PSA] | CPT/HCPCS: 52649; 55700; 76872 ==

== ENCOUNTER → 2024-11-15 09:56 | Outpatient (BNVA) | payer OTHER, SELFPAY | PROVIDERS: PCP Internal Medicine; Visit Provider Urology | DX: N40.1 Benign prostatic hyperplasia with lower urinary tract symptoms (principal); N13.8 Other obstructive and reflux uropathy; R33.8 Other retention of urine | CPT/HCPCS: 51700; 51798 ==

== ENCOUNTER 2024-11-17 12:51 | Outpatient (AMB) | payer OTHER, SELFPAY ==
--- OUTSIDE RECORDS SUMMARY | 2024-11-17 12:53 | XMS_ITS | Encounter Summary ---
Author Organization [employer] [facility] Address [address] [facility] [address] [place] [address] Care Team Providers Care Wicker Molded Candles Name Role Phone Niki Ramos MD Primary Care Provide r Encounter Details Date Type Department Care Team ([facility] Contact Info) Description 03/12/2023 Orders Only [facility] [address] [place] [phone] ProviderYao MD Social History Tobacco Use Types [...] Description 12/05/2024 9:15 AM EDT Office Visit [facility] [address] [place] [address] Niki Ramos MD [address] [place] [address] [phone] documented as of this encounter Procedures Procedure [...] documented as of this encounter Care Teams Wicker Molded Candles Relationship Specialty Start Date End Date Niki Ramos MD [address] [place] [id number] PCP - General Family Medicine 03/24/18 Ken CASTANEDA 10/24/24 documented as of this encounter
--- OUTSIDE RECORDS SUMMARY | 2024-11-17 12:53 | XMS_ITS | Encounter Summary ---
Author Organization [employer] Address [address] [facility] [address] [place] [address] Care Team Providers Care Industrial Engineering Technologist Name Role Phone Niki Ramos MD Primary Care Provide r Encounter Details Date Type Department Care Team ([facility] Contact Info) Description 02/19/2023 Orders Only [facility] CH[facility] MED & PEDS [address] [place] [address] Janelle Jones LPN Social History Tobacco Use [...] AM EDT Office Visit [facility] MEDICINE [address] [place] [address] Niki Ramos MD [address] [place], [place] [phone] documented as of this encounter Visit Diagnoses Not on filedocumented in this encounter Additional Health Concerns Assessment Noted Time PHQ-9 Depression Total Score: 8 09/26/19 23 9:12 AM EDT documented as of this encounter Care Teams Industrial Engineering Technologist Relationship Specialty Start Date End Date Niki Ramos MD [address] [place] [address] PCP - General Family Medicine 03/24/18 Ken CASTANEDA 10/24/24 documented as of this encounter
--- OUTSIDE RECORDS SUMMARY | 2024-11-17 12:54 | XMS_ITS | Encounter Summary ---
Author Organization [employer] Address [address] [facility] [address] [place] [address] Care Team Providers Care Brick Picker Name Role Phone Niki Ramos MD Primary Care Provide r Encounter Details Date Type Department Care Team ([facility] Contact Info) Description 06/22/2022 Abstract [facility] ADULT DENTAL [address] [place] [address] Sachin Chow, DMD [address] [place] [address] Social History Tobacco Use Types Packs/Day Years [...] Description 12/05/2024 9:15 AM EDT Office Visit [facility] MEDICINE [address] [place] [address] Niki Ramos MD [address] [place] [address] documented as of this encounter Visit Diagnoses Not on filedocumented in this encounter Care Teams Brick Picker Relationship Specialty Start Date End Date Niki Ramos MD [address] [place] [address] PCP - General Family Medicine 03/24/18 Ken A 10/24/24 documented as of this encounter
--- OUTSIDE RECORDS SUMMARY | 2024-11-17 12:54 | XMS_ITS | Encounter Summary ---
Author Organization [employer] [facility] Address [address] [facility] [address] [place] [address] Care Team Providers Care Supply Person Name Role Phone Niki Ramos MD Primary Care Provide r Encounter Details Date Type Department Care Team (Late Contact Info) Description 09/03/2022 Abstract [facility] ADULT DENTAL [address] [place] [address] Sundeep Felipe DMD [address] [place] [address] Social History Tobacco Use Types Packs/Day Years [...] Office Visit [facility] [address] [place] [address] Niki Ramos MD [address] [place] [address] documented as of this encounter Visit Diagnoses Not on filedocumented in this encounter Care Teams Supply Person Relationship Specialty Start Date End Date Niki Ramos MD [address] [place] [address] PCP - General Family Medicine 03/24/18 Ken A 10/24/24 documented as of this encounter
--- OUTSIDE RECORDS SUMMARY | 2024-11-17 12:54 | XMS_ITS | Encounter Summary ---
Author Organization [employer] [facility] Address [address] [facility] [address] [place] [address] Care Team Providers Care Gravity Manager Name Role Phone Niki Ramos MD Primary Care Provide r Encounter Details Date Type Department Care Team (Latest Contact Info) Description 04/09/2022 Abstract [facility] CONVERSION[facility] Dental, Provider, DDS Social History Tobacco [...] EDT Office Visit [facility] [address] [place] [address] Niki Ramos MD [address] [place] [address] documented as of this encounter Visit Diagnoses Not on filedocumented in this encounter Care Teams Gravity Manager Relationship Specialty Start Date End Date Niki Ramos MD [address] [place] [address] PCP - General Family Medicine 03/24/18 [facility] 10/24/24 documented as of this encounter
--- OUTSIDE RECORDS SUMMARY | 2024-11-17 12:54 | XMS_ITS | Encounter Summary ---
Author Organization [employer] [facility] Address [address] [facility] [address] [place] [address] Care Team Providers Care Supervisor Mechanic Boilermaking Name Role Phone Niki Ramos MD Primary Care Provide r Encounter Details Date Type Department Care Team (Late Contact Info) Description 07/30/[address] [facility] ADULT DENTAL [address] [place] [address] Sundeep Felipe DMD [address] [place] [address] Social History Tobacco Use Types Packs/Day Years [...] Description 12/05/2024 9:15 AM EDT Office Visit [facility] MED[facility] [address] [place] [address] Niki Ramos MD [address] [place] [address] documented as of this encounter Visit Diagnoses Not on filedocumented in this encounter Care Teams Supervisor Mechanic Boilermaking Relationship Specialty Start Date End Date Niki Ramos MD [address] [place] [address] PCP - General Family Medicine 03/24/18 Ken A 10/24/24 documented as of this encounter
--- OUTSIDE RECORDS SUMMARY | 2024-11-17 12:54 | XMS_ITS | Encounter Summary ---
Author Organization [employer] [facility] Address [address] [facility] [address] [place] [address] Care Team Providers Care Purchasing Assistant Name Role Phone Niki Ramos MD Primary Care Provide r Encounter Details Date Type Department Care Team (Latest Contact Info) Description 11/08/2018 Abstract [facility] CONVERSIONS Dental, Provider, DDS Social History [...] Description 12/05/2024 9:15 AM EDT Office Visit [facility] MEDICINE [address] [place] [address] Niki Ramos MD [address] [place] [address] documented as of this encounter Visit Diagnoses Not on filedocumented in this encounter Care Teams Purchasing Assistant Relationship Specialty Start Date End Date Niki Ramos MD [address] [place], [place] [phone] PCP - General Family Medicine 03/24/18 [facility] 10/24/24 documented as of this encounter
--- OUTSIDE RECORDS SUMMARY | 2024-11-17 12:54 | XMS_ITS | Encounter Summary ---
Author Organization [employer] Address [address] [place] [address] Care Team Providers Care Charter Coordinator Name Role Phone Niki Ramos MD Primary Care Provide r Encounter Details Date Type Department Care Team (Late st Contact Info) Description 11/13/2024 Orders Only [facility] EX[facility]NAL [facility] DEPARTMENT Provider, [...] Description 12/05/2024 9:15 AM EDT Office Visit [facility] MEDICINE [address] [place] [address] Niki Ramos MD [address] [place], [place] [phone] documented as of this encounter Procedures Procedure Name Priority Date/Time Associated Diagnosis Comments GROSS AND MICROSCOPIC LEVEL 4 Routine 11/13/2024 8:34 AM EDT documented in this encounter Results * Gross and Microscopic Level 4 (11/13/2024 8:34 AM EDT) 11/13/2024 8:34 AM EDT 11/13/2024 9:13 AM EDT [facility] LABS - 11/15/2024 2:31 PM EDT ----- ------- Name: Jayesh Che ?Age/Sex: 74/M ? : 1950 Unit#: [id number] ?? Attend Dr: Gilles Whitley MD ?Re11/13/24 ?Status: DEP SDC ? Location: HO.SSS ?Disch: ? ----- ------- SPEC : [id number] ? RECD: 11/13/24 ? STATUS: ??SOUT ? REQ NUM: [id number] ? GUILLAUME: 11/13/24 ? SUBM DR: Gilles Whitley MD ? ENTERED: ??11/13/24 ?SP TYPE: Surgical ? OTHR DR: Niki Ramos MD ? ORDERED: ??Gross Micro L4, Prostate biopsy/ ? Diagnosis ?? A. ??Prostate, left base lateral, needle core biopsy: ??Benign prostatic tissue. ?? B. ??Prostate, left base medial, needle core biopsy: ??Benign prostatic tissue. ?? C. ??Prostate, left mid lateral, needle core biopsy: ??Benign prostatic tissue. ?? D. ??Prostate, left mid medial, needle core biopsy: ??Prostatic adenocarcinoma, [place] ?? grade 3+3=6 (Grade group 1), involving 6% of the length of the core. ?? E. ??Prostate, left apex lateral, needle core biopsy: ??Benign prostatic tissue. ?? F. ??Prostate, left apex medial, needle core biopsy: ??Benign prostatic tissue. ?? G. ??Prostate, right base lateral, needle core biopsy: ??Benign prostatic tissue. ?? H. ??Prostate, right base medial, needle core biopsy: ??Benign prostatic tissue. ?? I. ??Prostate, right mid lateral, needle core biopsy: ??Benign prostatic ??tissue. ?? J. ??Prostate, right mid medial, needle core biopsy: ??Atypical small acinar proliferation. ?? K. ??Prostate, right apex lateral, needle core biopsy: ??Prostatic adenocarcinoma, Gucci ?? grade 3+3=6 (Grade group 1), involving 7% of the length of the core. ?? L. ??Prostate, right apex medial, needle core biopsy: ??Benign prostatic tissue. ?? M. Prostate tissue, biopsy: ??Benign prostatic tissue. ? Data synopsis - Prostate needle biopsy ? Histologic type: ?? Acinar adenocarcinoma ?? Histologic grade: ?? 3+3=6 ? Gucci score: ?? 3+3=6 ? % of pattern 4: ?? Not identified ? % of pattern 5: ?? Not identified ? Grade group: ?? 1 ?? Tumor quantitation: ? Number cores positive: ?? 2 ? Total number of cores: ?? 13 ? % of tissue involved: ?? See above for details ?? Periprostatic fat inv.: ?? Not identified ?? Seminal vesicle inv.: ?? Not identified ?? Perineural inv.: ?? Not identified ?? LVI: ? Not identified ?Clinical History Benign prostatic hyperplasia ? CONTINUED ON NEXT PAGE ----- ------- Name: Jayesh Che ?Age/Sex: 74/M ? : 1950 Unit#: [id number] ?? Attend Dr: Gilles Whitley MD ?Re11/13/24 ?Status: DEP SDC ? Location: HO.SSS ?Disch: ? ----- ------- SPEC : [id number] ? RECD: 11/13/24 ? STATUS: ??SOUT ? REQ NUM: [id number] ? GUILLAUME: 11/13/24 ? SUBM DR: Gilles Whitley MD ? ENTERED: ??11/13/24 ?SP TYPE: Surgical ? OTHR DR: Niki Ramos MD ? ORDERED: ??Gross Micro L4, Prostate biopsy/ ?Microscopic Description Microscopic sections reviewed. Immunostains for PIN in parts D and K support malignant prostatic glands while PIN4 in part I supports benign prostatic glands. ? Material Received ?? A: Left base lateral ?? B: Left base medial ?? C: Left mid lateral ?? D: Left mid medial ?? E: Left apex lateral ?? F: Left apex medial ?? G: Right base lateral ?? H: Right base medial ?? I: Right mid lateral ?? J: Right mid medial ?? K: Right apex lateral ?? L: Right apex medial ?? M. Prostate tissue ? Gross Description Received in thirteen parts. Part A: ??Received in formalin labeled ?left base lateral? is a 1.6 cm in length thin and delicate durán-white cylindrical thread of tissue, submitted in toto in a cassette labeled A. Part B: ??Received in formalin labeled left base medial? is a 1.6 cm in length thin and delicate durán-white cylindrical thread of tissue, submitted in toto in a cassette labeled B. Part C: ??Received in formalin labeled ?left mid lateral? are 2 thin and delicate durán-white cylindrical threads of tissue measuring 0.7 and 1.4 cm in length, submitted in toto in a cassette labeled C. Part D: ??Received in formalin labeled ?left mid medial? is a 1.8 cm in length thin and delicate durán-white cylindrical thread of tissue, submitted in toto in a cassette labeled D. Part E: ??Received in formalin labeled ?left apex lateral? is a 1.4 cm in length thin and delicate durán-white cylindrical thread of tissue, submitted in toto in a cassette labeled E. Part F: ??Received in formalin labeled ?left apex medial? is a 1.0 cm in length thin and ? CONTINUED ON NEXT PAGE ----- ------- Name: CheJayesh ?Age/Sex: 74/M ? : 1950 Unit#: [id number] ?? Attend Dr: Gilles Whitley MD ?Re11/13/24 ?Status: DEP SDC ? Location: HO.SSS ?Disch: ? ----- ------- SPEC : [id number] ? RECD: 11/13/24 ? STATUS: ??SOUT ? REQ NUM: [id number] ? GUILLAUME: 11/13/24 ? SUBM DR: Gilles Whitley MD ? ENTERED: ??11/13/24 ?SP TYPE: Surgical ? OTHR DR: Niki Ramos MD ? ORDERED: ??Gross Micro L4, Prostate biopsy/ ? Gross Description ?(Continued) delicate durán-white cylindrical thread of tissue, submitted in toto in a cassette labeled F. Part G: ??Received in formalin labeled right base lateral? is a 1.5 cm in length thin and delicate durán-white cylindrical thread of tissue, submitted in toto in a cassette labeled G. Part H: ??Received in formalin labeled ?right base medial? is a 1.2 cm in length thin and delicate durán-white cylindrical thread of tissue, submitted in toto in a cassette labeled H. Part I: ??Received in formalin labeled right mid lateral are 2 thin and delicate cylindrical threads of durán-gupta tissue measuring 0.25 and 1.3 cm, submitted in toto in a cassette labeled I. Part J: ??Received in formalin labeled right mid medial? is a 1.6 cm in length thin and delicate durán-white cylindrical thread of tissue, submitted in toto in a cassette labeled J. Part K: ??Received in formalin labeled ?right apex lateral? is a 1.5 cm in length thin and delicate durán-gupta cylindrical thread of tissue, submitted in toto in a cassette labeled K. Part L: ??Received in formalin labeled ?right apex medial? is a 1.3 cm in length thin and delicate durán-white cylindrical thread of tissue, submitted in toto in a cassette labeled L. Part M: ??Received in formalin labeled ?prostate tissue? are a few diffusely cauterized, rubbery, gupta-brown fragments and chips of fibromuscular tissue ranging from minute to 0.5 cm and aggregating 1.0 x 0.45 x 0.35 cm, submitted in toto in a cassette labeled M. CEDS This case was reviewed intradepartmentally. Special stains ordered and performed: PIN4 on D, I, K. Copies To: ?? Niki Ramos MD ?? [facility] ?? [address] [facility] ?? [place] [address] ?? [phone] ? CONTINUED ON NEXT PAGE ----- ------- Name: Jayesh Che ?Age/Sex: 74/M ? : 1950 Unit#: [id number] ?? Attend Dr: Gilles Whitley MD ?Re11/13/24 ?Status: DEP SDC ? Location: HO.SSS ?Disch: ? ----- ------- SPEC : [id number] ? RECD: 11/13/24-912 ? STATUS: ??SOUT ? REQ NUM: [id number] ? GUILLAUME: 11/13/24-8962 ? SUBM DR: Gilles Whitley MD ? ENTERED: ??11/13/24-919 ?SP TYPE: Surgical ? OTHR DR: Niki Ramos MD ? ORDERED: ??Gross Micro L4, Prostate biopsy/ ? Copies To: ??(Continued) ?? Gilles Whitley MD ?? [facility] ?? [address] [facility] [address] ?? [place] [address] ?? [phone] ----- ------- Signed (signature on file) Jackie Brewer MD 11/15/24 2332 ? ----- ------- ? END OF REPORT ? us Generic External Data Provider LAB CYTOLOGY ORDE KERRY Final Result [facility] [address] [place] [address] [phone] documented in this encounter Visit Diagnoses Not on filedocumented in this encounter Additional Health Concerns Assessment Noted Time PHQ-9 Depression Total Score: 0 10/04/19 24 9:42 AM EDT documented as of this encounter Care Teams Charter Coordinator Relationship Specialty Start Date End Date Niki Ramos MD [address] [place] [address] PCP - General Family Medicine 03/24/18 Ken SANTOSA 10/24/24 documented as of this encounter
--- OUTSIDE RECORDS SUMMARY | 2024-11-17 12:54 | XMS_ITS | Encounter Summary ---
Author Organization [employer] [facility] Address [address] [place] [address] Care Team Providers Care Solar Thermal Technician Name Role Phone Niki Ramos MD Primary Care Provide r Encounter Details Date Type Department Care Team (Late st Contact Info) Description 05/27/2022 Abstract [facility] ADULT DENTAL [address] [place] [address] Dental, Provider, DDS Social History Tobacco Use [...] 9:15 AM EDT Office Visit [facility] MEDICINE [address] [place] [address] Niki Ramos MD [address] [place] [address] documented as of this encounter Procedures Procedure [...] on filedocumented in this encounter Care Teams Solar Thermal Technician Relationship Specialty Start Date End Date Niki Ramos MD [address] [place] [address] PCP - General Family Medicine [facility] documented as of this encounter
--- OUTSIDE RECORDS SUMMARY | 2024-11-17 12:54 | XMS_ITS | Clinical Summary ---
Author Organization [employer] Address [address] [place] [address] Care Team Providers Care Senior Business Manager Name Role Phone Niki Ramos MD [...] Once per day. 30 tablet 11 024 Active Blood Pressure Monitoring (Blood Pressure Cuff) [...] PM EST): I will refer him to technology integration specialist Allergy 07/12/2023 Dyspnea on exertion 01/12/2023 [...] Encounters Date Type Department Care Team Description 11/13/2024 Orders Only GENERIC EXTERNAL DATA DEPARTMENT Provider, Generic External Data 10/30/2024 Orders Only GENERIC EXTERNAL DATA DEPARTMENT Provider, Generic External Data 10/25/2024 Refill [facility] [address] [place] [address] Niki Ramos MD Mild intermittent asthma, unspecified whether complicated 10/17/2024 Orders Only GENERIC EXTERNAL DATA DEPARTMENT Provider, Generic External Data 09/25/2024 Orders Only [facility] [address] [place] [phone] Niki Ramos MD 09/25/2024 Telephone [facility] [address] [place] [phone] Niki Ramos MD Medication Question 09/16/2024 Refill [facility] [address] [place] [phone] Niki Ramos MD Asthma in adult, mild intermittent, uncomplicated 09/13/2024 Orders Only [facility] External Provider, [facility] 09/12/2024 Refill [facility] [address] [place] [phone] Niki Ramos MD 09/04/2024 Telephone [facility] [address] [place] [address] [phone] Niki Ramos MD Results 09/04/2024 Orders Only GENERIC EXTERNAL DATA DEPARTMENT Provider, Generic External Data 09/01/2024 10:45 AM EST Office Visit [facility] [address] [place] [phone] Niki Ramos MD Pruritus (Primary Dx); Mood disorder ([facility]/HCC); Essential hypertension; Colon cancer screening; Benign prostatic hyperplasia with lower urinary tract symptoms, symptom details unspecified 09/01/2024 Travel 08/31/2024 Orders Only [facility] [address] [place] [phone] Niki Ramos MD Vitamin D deficiency (Primary Dx) 08/31/2024 Telephone [facility] [address] [place] [phone] Niki Ramos MD Medication Question 08/24/2024 10:00 AM EST Office Visit [facility] ADULT DENTAL [address] [place] [address] Sundeep Felipe DMD from Last 3 Months Immunizations Immunization Administration Dates Next Due Hep B, adult [...] Description 12/05/2024 9:15 AM EDT Office Visit [facility] [address] [place] [address] Niki Ramos MD [address] [place] [address] Health Maintenance Due Date Last Done Comments [...] 09/22/2024 09/23/2023 Depression Screening 10/03/2024 10/04/2023, 10/04/19 COVID-19 Vaccine ( season) 2024 04/26/2024, 06/06/2021, 11/07/2020, Additional history exists Tobacco Screening 08/24/2025 08/24/2024 Diabetes: Hemoglobin A1C 09/04/2025 025, 10/04/2023, 09/29/2022, Additional history exists Lipid Panel 09/04/2029 09/04/2024, 04/0 07/2023, 09/29/2022, Additional history exists DTaP/Tdap/Td Vaccines (3 - Td or Tdap) 10/17/2034 10/17/2024, 08/12/2016 Hepatitis B Vaccines Completed 06/05/2021, 10/26/2017, 09/17/2017 Pneumococcal Vaccine: 50+ Years Completed 06/05/2021, 08/12/2016 Influenza Vaccine Completed 04/26/2024, , 04/29/2021, Additional [...] patient's age to complete this topic Meningococcal B Vaccine Aged Out No l onger eligible based on patient's age to complete [...] LEVEL 4 Routine 11/13/2024 8:34 AM EDT XR KUB AND UPRIGHT 2 VIEWS Routine [...] Recently Relevant to Health Maintenance Results * Gross and Microscopic Level 4 (11/13/2024 8:34 AM EDT) 11/13/2024 8:34 AM EDT 11/13/2024 9:13 AM EDT [facility] LABS - 11/15/2024 2:31 PM EDT ----- ------- Name: Jayesh Che ?Age/Sex: 74/M ? : 1950 Unit#: [id number] ?? Attend Dr: Gilles Whitley MD ?Re11/13/24 ?Status: DEP SDC ? Location: HO.SSS ?Disch: ? ----- ------- SPEC : [id number] ? RECD: 11/13/24 ? STATUS: ??SOUT ? REQ NUM: [id number] ? GUILLAUME: 11/13/24 ? SUBM DR: Gilles [...] mid medial, needle core biopsy: ??Prostatic adenocarcinoma, [place] ?? 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 : 1950 Unit#: [id number] ?? Attend Dr: Gilles Whitley MD ?Re11/13/24 ?Status: DEP SDC ? Location: HO.SSS ?Disch: ? ----- ------- SPEC : [id number] ? RECD: 11/13/24 ? STATUS: ??SOUT ? REQ NUM: [id number] ? GUILLAUME: 11/13/24 ? SUBM DR: Gilles Whitley MD ? ENTERED: ??11/13/24 ?SP TYPE: Surgical ? OTHR DR: Niki Ramos MD ? ORDERED: ??Gross Micro L4, Prostate biopsy/12 ?Microscopic Description Microscopic sections reviewed. Immunostains for [...] Che ?Age/Sex: 74/M ? : 1950 Unit#: [id number] ?? Attend Dr: Gilles Whitley MD ?Re11/13/24 ?Status: DEP SDC ? Location: HO.SSS ?Disch: ? ----- ------- SPEC : [id number] ? RECD: 11/13/24 ? STATUS: ??SOUT ? REQ NUM: [id number] ? GUILLAUME: 11/13/24 ? SUBM DR: Gilles Whitley MD ? ENTERED: ??11/13/24 ?SP TYPE: Surgical ? OTHR DR: Niki Ramos MD ? ORDERED: ??Gross Micro L4, Prostate biopsy/12 ? Gross Description ?(Continued) delicate durán-white cylindrical [...] Copies To: ?? Niki Ramos MD ?? [facility] ?? [address] ?? [place] [address] ?? [phone] ? CONTINUED ON NEXT PAGE ----- ------- Name: Jayesh Che ?Age/Sex: 74/M ? : 1950 Unit#: [id number] ?? Attend Dr: Gilles Whitley MD ?Re11/13/24 ?Status: DEP SDC ? Location: HO.SSS ?Disch: ? ----- ------- SPEC : [id number] ? RECD: 11/13/24-912 ? STATUS: ??SOUT ? REQ NUM: [id number] ? GUILLAUME: 11/13/24-833 ? SUBM DR: Gilles Whitley MD ? ENTERED: ??11/13/24 ?SP TYPE: Surgical ? OTHR DR: Niki Ramos MD ? ORDERED: ??Gross Micro L4, Prostate biopsy/ ? Copies To: ??(Continued) ?? Gilles Whitley MD ?? [facility] ?? [address] ?? [place] [address] ?? [phone] ----- ------- Signed (signature on file) Jackie Brewer MD 11/15/24 6089 ? ----- ------- ? END OF REPORT ? us Generic External Data Provider LAB CYTOLOGY RAMONA PAYNE Final Result [facility] [address] [place] [phone] * XR KUB and Upright 2 Views (10/30/2024 12:50 PM EDT) Anatomical Region Laterality Modality Radiographic Jessika ging 10/30/2024 12:5 0 PM EDT Narrative 10/30/2024 1:16 PM EDT ? [facility] ?[address] ?[place] [address] ?XRay Report ? Signed ? Patient: Jayesh Che ?MR#: [id number] ?? 6 ? : 1950 ?Acct:[id number] ? Age/Sex: 74 / M ?ADM Date: 10/30/24 ? Loc: HO.ED ? Attending Dr: ? Ordering Physician: Donal Mandel ?? Date of Service: 10/30/24 ?? Procedure(s): XR KUB ?? Accession Number(s): [id number] ? cc: Niki Ramos MD; Donal Mandel [...] DD/ 1250 ? TD/TT: 10/30/24 1255 ? Poultry Farm Laborer: ? Procedure Note Donotcheriseter, Image - 10/30/[address] [address] XRay Report Signed Patient: Jayesh CheMR#: [id number] 6 : 1950Acct:[id number] Age/Sex: 74 / MADM Date: 10/30/24 Loc: HO.ED Attending Dr: Ordering Physician: Donal Mandel Date of Service: 10/30/24 Procedure(s): XR KUB Accession Number(s): [id number] cc: Niki Ramos MD; Donal Mandel EXAMINATION: [...] 10/30/24 1313 DD/ 1250 TD/TT: 10/30/24 1255 Poultry Farm Laborer: us [facility] External Provider IMG XR PROCEDURES Final Result * Urinalysis w/reflex microscopic (10/30/2024 12:24 PM EDT) Color Urine Yellow [facility] Appearance Urine Clear [facility] PH 7.0 5.0 - 9.0 [facility] Glucose Urine UA Negative Negative mg/dL [facility] Urine Blood Negative Negative [facility] Specific [place] - Urine 1.010 1.005 - 1.025 [facility] Urine Protein Negative Neg-Trace mg/dL [facility] Urine Ketones Negative Negative mg/dL [facility] Nitrite Urine Negative Negative [facility] Leukocyte Esterase Urine Negative Negative [facility] 10/30/2024 12:2 4 PM EDT 10/30/2024 12:29 PM EDT Narrative [facility]S - 10/30/2024 12:40 PM EDT Urine, [place] Generic External Data Provider LAB URINE ORDERAB LES Final Result Performing Organization Address [facility] Co de Phone Number [facility] [address] [place] [phone] * Slide Review (10/30/2024 11:20 AM EDT) Slide Review VERIFIED [facility] 10/30/2024 11:2 0 AM EDT 10/30/2024 11:27 AM EDT Generic External Data Provider LAB BLOOD ORDERAB LES Final Result Performing Organization Address [facility] Co de Phone Number [facility] [address] [place] [phone] * (ABNORMAL) CBC auto differential (10/30/2024 11:20 AM EDT) Only the most recent of3 resultswithin the time period is included. White Blood Count 11.0(H) 4.8 - 10.8 X10*3/uL [facility] Red Blood Count 4.46(L) 4.60 - 5.80 X10*6/uL [facility] Hemoglobin 13.1(L) 14.0 - 18.0 g/dl [facility] Hematocrit 39.1(L) 42.0 - 52.0 % [facility] Mean Corpuscular Volume 87.7 80.0 - 98.0 fL [facility] Mean Corpuscular Hemoglobin 29.4 27.0 - 33.0 pg [facility] Mean Corpuscular HGB Conc 33.5 31.0 - 36.0 g/dl [facility] Red Cell Distribution Width 12.0 11.0 - 16.0 % [facility] Platelet Count 223 160 - 400 X10*3/uL [facility] Mean Platelet Volume 9.3(L) 9.4 - 12.4 fL [facility] Neutrophils Percent Auto 91.2(H) 45 - 73 % [facility] Imm Gran Pct Auto 0.6(H) 0.0 - 0.4 % [facility] Lymphocytes Percent Auto 5.3(L) 20 - 40 % [facility] Monocytes Percent Auto 2.3 2 - 11 % [facility] Eosinophils Percent Auto 0.2 0 - 4 % [facility] Basophils Percent Auto 0.4 0 - 2 % [facility] NRBC Pct Auto 0.0 0.0 - 0.2 /100WBC [facility] Neutrophils Absolute Auto 10.1(H) 2.0 - 8.3 x10*3/uL [facility] Imm Gran Abs Auto 0.07(H) 0.00 - 0.03 X10*3/uL [facility] Lymphocytes Absolute Auto 0.6(L) 1.2 - 4.9 X10*3/uL [facility] Monocytes Absolute Auto 0.3 0.1 - 1.2 X10*3/uL [facility] Eosinophils Absolute Auto 0.0 0.0 - 0.4 X10*3/uL [facility] Basophils Absolute Auto 0.0 0.0 - 0.2 X10*3/uL [facility] NRBC Abs Auto 0.000 0.0 - 0.012 X10*3/uL [facility] 10/30/2024 11:2 0 AM EDT 10/30/2024 11:27 AM EDT us Generic External Data Provider LAB BLOOD ORDERAB LES Edited Result - Final [facility] [address] [place] [phone] * (ABNORMAL) Comprehensive Metabolic Panel (10/30/2024 11:20 AM EDT) Only the most recent of3 resultswithin the time period is included. Sodium 133(L) 135 - 145 mmol/L [facility] Potassium 4.0 3.3 - 5.1 mmol/L [facility] Chloride 99 96 - 108 mmol/L [facility] Carbon Dioxide 26 22 - 29 mmol/L [facility] Anion Gap 12 12 - 20 [facility] Urea Nitrogen (BUN) 15 9 - 16 mg/dL [facility] Creatinine, Serum 0.73 0.5 - 1.4 mg/dL [facility] Creatinine Clr Calc Pharmacy 80.1 [facility] Comment:eGFR (calculated fro m the MDRD study equation) and eCrCl(calculated from the Cockcroft-Gault equation) are based ondifferent parameters and may not yield comparable results.If eCrCl result is absurd, please check patient'sheight/weight. Estimated Glomerular Filt Rate >60 [facility] Comment:Chronic Kidney Disea se: Estimated GFR < 60 mL/min/1.93m7Tmtimf Kidney Disease: Estimated GFR < 15 mL/min/1.73m2 Glucose 178(H) 60 - 115 mg/dL [facility] Calcium 9.1 8.4 - 10.2 mg/dL [facility] Bilirubin, Total 0.4 0.0 - 1.0 mg/dL [facility] Aspartate Amino Transferase 69(H) 5 - 37 U/L [facility] Alanine Aminotransferase 101(H) 0 - 40 U/L [facility] Total Protein 6.8 6.5 - 8.0 g/dL [facility] Albumin Level 4.2 3.5 - 5.0 g/dL [facility] Alkaline Phosphatase 68 39 - 117 U/L [facility] 10/30/2024 11:2 0 AM EDT 10/30/2024 11:27 AM EDT Generic External Data Provider LAB BLOOD ORDERAB LES Final Result Performing Organization Address [facility] Co de Phone Number [facility] [address] [place] [address] [phone] * Lactic Acid (10/17/2024 10:00 AM EDT) Lactic Acid 1.5 0.5 - 2.0 mmol/L [facility] 10/17/2024 10:0 0 AM EDT 10/17/2024 10:03 AM EDT Generic External Data Provider LAB BLOOD ORDERAB LES Final Result Performing Organization Address [facility] de Phone Number [facility] [address] [place] [phone] * XR Hand 3+ Views Left (10/17/2024 9:39 AM EDT) Anatomical Region Laterality Modality Upper Extremities, Hand Left Radiogra phic Imaging 10/17/2024 9:39 AM EDT Narrative 10/17/2024 10:39 AM EDT ? [facility] ?[address] ?[place] [address] ?XRay Report ? Signed ? Patient: Che,Jayesh ?MR#: [id number] ?? 6 ? : 1950 ?Acct:[id number] ? Age/Sex: 74 / M ?ADM Date: 04/15/25 ? Loc: HO.ED ? Attending Dr: ? Ordering Physician: Hannah Blakely ?? Date of Service: 10/17/24 ?? Procedure(s): XR hand LT min 3V ?? Accession Number(s): [id number] ? cc: Niki Ramos MD; Hannah Blakely [...] DD/ 0939 ? TD/TT: 10/17/24 1018 ? Poultry Farm Laborer: ? Procedure Note Vik Han - 10/17/[address] [address] XRay Report Signed Patient: Jayesh Che#: [id number] 6 : 1950Acct:[id number] Age/Sex: 74 / MADM Date: 10/17/24 Loc: HO.ED Attending Dr: Ordering Physician: Hannah Blakely Date of Service: 10/17/24 Procedure(s): XR hand LT min 3V Accession Number(s): [id number] cc: Niki Ramos MD; Hannah Blakely EXAMINATION: [...] Mikey Roger MD 10/17/2024 10:36 AM EDT RP Dictated By: Mikey Roger MD Signed By: <Electronically signed by Mikey Roger MD in OV> 10/17/24 1036 DD/ 0939 TD/TT: 10/17/24 1018 Poultry Farm Laborer: [facility] External Provider IMG XR PROCEDURES Final Result * Sed Rate by Modified Dylon (10/17/2024 8:18 AM EDT) [facility] Erythrocyte Sedimentation Rate 8 0 - 15 MM/HR [facility] Comment:Patients with polycy themia and many hemoglobin abnormalitiesmay have depressed sed rates whereas patients with anemiamay have elevated sed rates. 10/17/2024 8:18 AM EDT 10/17/2024 9:50 AM EDT Generic External Data Provider LAB BLOOD ORDERAB LES Final Result [facility] [address] [place] [phone] * (ABNORMAL) C-reactive Protein (10/17/2024 8:18 AM EDT) Pathologist [facility] C Reactive Protein 4.30(H) < or = 0.50 mg/dL [facility] 10/17/2024 8:18 AM EDT 10/17/2024 8:25 AM EDT us Generic External Data Provider LAB BLOOD ORDERAB LES Final Result [facility] [address] [facility] [place] [address] [phone] * Stress test with myocardial perfusion (09/13/2024 9:40 AM EDT) 09/13/2024 9:40 AM EDT Narrative [facility] IMAGING - 09/17/2024 11:42 AM EDT ? [facility] ?[address] ?[place] [address] ?Nuclear Medicine Report ? Signed ? Patient: Che,Jayesh ?MR#: [id number] ?? 6 ? : 1950 ?Acct:[id number] ? Age/Sex: 74 / M ?ADM Date: 09/13/24 ? Loc: HO.CARD ? Attending Dr: Ralph Lyman MD ? Ordering Physician: Ralph Lyman MD ?? Date of Service: 09/13/24 ?? Procedure(s): NM cardiolite stress test ?? Accession Number(s): [id number] ? cc: Niki Ramos MD; Ralph Lyman [...] DD/ 0940 ? TD/TT: 09/15/24 1210 ? Poultry Farm Laborer: ? Procedure Note Emely, Vik - 09/17/[address] [address] Nuclear Medicine Report Signed Patient: Luis Che#: [id number] 6 : 1950Acct:[id number] Age/Sex: 74 / MADM Date: 09/13/24 Loc: SELAM Attending Dr: Ralph Lyman MD Ordering Physician: Ralph Lyman MD Date of Service: 09/13/24 Procedure(s): NM cardiolite stress test Accession Number(s): [id number] cc: Niki Ramos MD; Ralph Lyman MD [...] inferior perfusion defect. No clear reversible defects. RI/RI cardiolite stress test IMPRESSION: 1. Myocardial perfusion [...] 09/17/24 1139 DD/ 0940 TD/TT: 09/15/24 1210 Poultry Farm Laborer: [facility] External Provider CV STRE SS PROCEDURES Final Result [facility] [address] [place] [address] * (ABNORMAL) Vitamin D, 25-Hydroxy, Total, Immunoassay (09/04/2024 7:59 AM EST) Vitamin D 25-OH Total 26.9(L) >30 ng/mL [facility] Comment:Health Based Referen ce Values*< 20 ng/mL Auxrzvmks54-53 ng/mL Insufficient> 30 ng/mL Sufficient*Leora CANDELARIA. N [...] Final Result Performing Organization Address [facility] Co de Phone Number [facility] [address] [place] [phone] * TSH with Reflex to Free T4 (09/04/2024 7:59 AM EST) TSH reflex Free T4 1.23 0.32 - 4.0 uIU/mL [facility] Blood Venous blood specimen / Unknown 09/04/2024 7:59 AM EST 09/04/2024 11:36 AM EST us Niki Simmons MD LAB BLOOD ORDERABLES Final Result Performing Organization Address [facility]/ZIP Co de Phone Number [facility] [address] [place] [phone] * (ABNORMAL) PSA, Total With Reflex to PSA, Free (09/04/2024 7:59 AM EST) PSA,Total (Free>4and<10) 10.94(H ) 0.00 - 4.00 ng/mL [facility] Comment:A Free PSA was not p [...] are between 4.0 and 10.0 ng/mL.PSA methodology: [employer] Alinity i ChemiluminescentMicroparticle Immunoassay (CMIA) 09/04/2024 7:59 AM EST 09/04/2024 11:36 AM EST us Generic External Data Provider LAB BLOOD ORDERAB LES Final Result Performing Organization Address City/[facility]/ZIP Co de Phone Number [facility] [address] [place] [phone] * Hepatitis C Antibody with Reflex to HCV, RNA, Quantitative, Real-Time PCR (09/04/2024 7:59 AM EST) Hepatitis C Antibody Nonreactive Nonreactive [facility] Comment:Antibodies to HCV no t detected; does not exclude early acuteHCV infection. Blood Venous blood specimen / Unknown 09/04/2024 7:59 AM EST 09/04/2024 11:36 AM EST us Niki Simmons MD LAB BLOOD ORDERABLES Final Result Performing Organization Address City/[facility]/ZIP Co de Phone Number [facility] [address] [place] [phone] * HIV-1/2 Antigen and Antibodies, Fourth Generation, with Reflexes (09/04/2024 7:59 AM EST) HIV AB/AG Nonreactive Nonreactive [facility] Comment:HIV-1 p24 Ag and/or HIV-1/HIV-2 Ab not detected.A test result that is nonreactive does not exclude thepossibility of exposure to or infection with HIV-1 and/orHIV-2. Nonreactive results in this assay for individualswith prior exposure to HIV-1 and/or HIV-2 may be due toantigen and antibody levels that are below the limit ofdetection of this assay.The 4-Tell HIV Ag/Ab Combo assay result andsupplemental assay results should be interpreted inconjunction with the patient's clinical presentation,history and other laboratory results. If the results areinconsistent with clinical evidence, additional testing issuggested to confirm the result. Blood Venous blood specimen / Unknown 09/04/2024 7:59 AM EST 09/04/2024 11:36 AM EST us Niki Simmons MD LAB BLOOD ORDERABLES Final Result [facility] [address] [place] [address] [phone] * Hemoglobin A1c (09/04/2024 7:59 AM EST) Hemoglobin A1c 5.7 <6.0 % [facility] Comment:Hemoglobin A1C Refer ence Range Adults: 4.8 - 6.0 % Non diabetic: < 6.0 % Goal: < 7.0 %Additional Action Suggested: > 8.0 %Note: Hemoglobin A1c results are invalid for patients with abnormal amounts of HbF. Blood transfusions may impact the HbA1c concentration in the patient sample. Estimated Average Glucose 117 mg/dL [facility] Comment:eAG = Estimated ave rage glucose which is %A1C expressed asaverage glucose, using the formula of the S4G-EqilgjzDkejkfo Glucose study (ADAG), Diabetes Care, Vol.31,#8,Feb. 2007 Blood Venous blood specimen / Unknown 09/04/2024 7:59 AM EST 09/04/2024 11:36 AM EST us Niki Simmons MD LAB BLOOD ORDERABLES Final Result Performing Organization Address [facility] Co de Phone Number [facility] [address] [place] [phone] * Lipid Panel, Standard (09/04/2024 7:59 AM EST) Triglycerides 74 <150 mg/dL [facility] Comment:Desirable Triglyceri de: less than 150 mg/dLBorderline High Triglyceride 150-199 mg/dLHigh Triglyceride: 200-499 mg/dLVery High Triglyceride: greater than or equal to 5OO mg/dL Cholesterol 106 <200 mg/dL [facility] Comment:Desirable Cholestero l: less than 200 mg/dLBorderline High Cholesterol: 200-239 mg/dLHigh Cholesterol: greater than 239 mg/dL LDL Cholesterol Calculated 47 <100 mg/dL [facility] Comment:Desirable LDL: less than 100 mg/dLNear Optimal/Above Optimal LDL: 110- 129 mg/dLBorderline High LDL: 130-159 mg/dLHigh LDL: 160-189 mg/dLVery High LDL: greater than or equal to 190 mg/dL HDL Cholesterol 45 >40 mg/dL [facility] Comment:Desirable HDL: great er than 40 mg/dL Note: This HDL assay may give artificially low results in patients with liver disease. Blood Venous blood specimen / Unknown 09/04/2024 7:59 AM EST 09/04/2024 11:36 AM EST us Niki Simmons MD LAB BLOOD ORDERABLES Final Result Performing Organization Address [facility] Co de Phone Number [facility] [address] [place] [phone] * Hm Colonoscopy (03/07/2020) Yao Grayson MD HEALTH MAINTENANCE Final Result from Last 3 Months or Most Recently Relevant to Health Maintenance Insurance [facility] INTERMEDIATE OPTIONS (HMO D-SNP) [facility] Care Teams Senior Business Manager Relationship Specialty Start Date End Date Niki Ramos MD [address] [place] [address] PCP - General Family Medicine 03/24/18 [place] [facility] 10/24/24
--- OUTSIDE RECORDS SUMMARY | 2024-11-17 12:54 | XMS_ITS | Encounter Summary ---
Author Organization [employer] [facility] Address [address] [facility] [address] [place] [address] Care Team Providers Care Clinical Staff Anesthesiologist Name Role Phone Niki Ramos MD Primary Care Provide r Encounter Details Date Type Department Care Team (Late st Contact Info) Description 06/05/2022 Abstract [facility] ADULT DENTAL [address] [place] [address] Sundeep Felipe, ROBERTO [address] [place] [address] Social History Tobacco Use Types Packs/Day Years [...] 12/05/2024 9:15 AM EDT Office Visit [facility] MEDICINE [address] [place] [address] Niki Ramos MD [address] [place] [address] documented as of this encounter Visit Diagnoses Not on filedocumented in this encounter Care Teams Clinical Staff Anesthesiologist Relationship Specialty Start Date End Date Niki Ramos MD [address] [place] [address] PCP - General Family Medicine 03/24/18 Ken CASTANEDA 10/24/24 documented as of this encounter
--- OUTSIDE RECORDS SUMMARY | 2024-11-17 12:54 | XMS_ITS | Data Portability ---
Author Organization [employer] [place] [facility] Address [address] [place] [id number] Care Team Providers Care Purification Operator Name Role Phone [facility] Referring Provider [phone] Assessment Encounter Date Assessment Date Assessment LastModified by Organization Details LastModified Time 05/20/2022 05/20/2022 I have reviewed and agree with the Assessment and Plan as documented by the Flight Test Mechanic. I provided real -time medical direction via phone for this encounter, and was available for additional phone based assistance as needed. Patient given the opportunity to ask questions. [email or web address] Not available 05/20/2022 13:49:00 Plan of Treatment Reminders Order Date Submit Date Provider Last Modified By Organization Details Last Modified Time Details Appointments None recorded. Lab urinalysis , dipstick 2021 [email or web address] 0 [facility], [address] [place] [address], [phone] 13:53:37 culture, urine 2021 [place] [facility] (Centralized Electronic Ordering - All Locations), Patient Can Go To The Location Of Their Choice, [id number] 08:07:02 Referral None recorded. Procedures None recorded. Surgeries None recorded. Imaging None recorded. Medication Orders Levaquin 500 mg tablet 2021 [facility], [address] [place] [address], [id number], 14:01:24 Levaquin 500 mg tablet 2021 [email or web address] 0 Not available 13:53:37 Pyridium 100 mg tablet 2021 [facility], [address] [place], [place], [phone], 14:01:24 Patient TargetsNo targets recorded. Patient InstructionsNo instructions recorded. Reason for Referral None Reported. Results Created Date Observation Date Name Description Value Unit Range Abnormal Flag Note LastModifiedBy Organization Detail LastModifiedTime 05/20/2005/21/2022 URINE CULTU RE specimen description CLEAN CATCH (URINE ) Not Available [facility] (Centralized Electronic Ordering - All Locations) Patient Can Go To The Location Of Their Choice, [facility] 05/22/2022 08:06:59 05/20/2005/21/2022 URINE CULTU RE special requests NONE Not Available [facility] (Centralized Electronic Ordering - All Locations) Patient Can Go To The Location Of Their Choice, [facility] 05/22/2022 08:06:59 05/20/2005/22/2022 URINE CULTU RE culture NO GROWTH Not Available [facility] (Centralized Electronic Ordering - All Locations) Patient Can Go To The Location Of Their Choice, [facility] 05/22/2022 08:06:59 05/20/2005/22/2022 URINE CULTU RE report status FINAL 2021 Not Available [facility] (Centralized Electronic Ordering - All Locations) Patient Can Go To The Location Of Their Choice, [facility] 05/22/2022 08:06:59 05/20/2005/20/2022 urina lysis , dipst ick Leukocytes trace Not Available [facility] [address] [place] [address], [phone] 05/20/2022 13:48:42 05/20/20 22 05/20/2022 urina lysis , dipst ick Nitrite negati ve Not Available [facility] [address] [place] [address], [phone] 05/20/2022 13:48:42 05/20/20 22 05/20/2022 urina lysis , dipst ick Urobilinogen neg Not Available [facility] [address] [place] [address], [phone] 05/20/2022 13:48:42 05/20/20 22 05/20/2022 urina lysis , dipst ick Protein trace Not Available [facility] - [facility] imelda [address] [place] [address], [phone] 05/20/2022 13:48:42 05/20/20 22 05/20/2022 urina lysis , dipst ick pH 6 Not Available Main - Ins [address], [phone] 05/20/2022 13:48:42 05/20/20 22 05/20/2022 urina lysis , dipst ick Blood 50 rbc Not Available Main - [facility] [address], [address] 05/20/2022 13:48:42 05/20/20 22 05/20/2022 urina lysis , dipst ick Specific Carlisle 1.010 Not Available [facility] [address] [place] [address], [phone] 05/20/2022 13:48:42 05/20/20 22 05/20/2022 urina lysis , dipst ick Ketone neg Not Available Main - [facility] [address], [phone] 05/20/2022 13:48:42 05/20/20 22 05/20/2022 urina lysis , dipst ick Bilirubin neg Not Available Main - [facility] n[facility] [address] [place] [address], [phone] 05/20/2022 13:48:42 05/20/20 22 05/20/2022 urina lysis , dipst ick Glucose neg Not Available Main - [facility] [address], [phone] 05/20/2022 13:48:42 05/20/20 22 05/20/2022 urina lysis , dipst ick Appearance sl cloudy Not Available [facility] - [facility] [address] [place] [address], [phone] 05/20/2022 13:48:42 05/20/20 22 05/20/2022 urina lysis , dipst ick Color pink Not Available Main - [facility] [address], [phone] 05/20/2022 13:48:42 Result Notes None recorded. Medical Equipment None Reported. Allergies Allergen ID Allergen Name Allergen Category Reaction Reaction Severity Criticality Documentation Date Start Date Code Code System Note Provider Name and Address Organization Details Recorded Time 1313 acetamino phen / oxycodone medicatio n Not available Not available Not available 05/20/2022 66004 3 RxNorm Michelle Sharif MD [address] [facility],[address], [place], [phone], [facility] - [facility] 2 13:46:59 8126 acetamino phen medicatio n [...] Not Available Not Available No t Available [facility] 10 billion cell-200 mg sprinkle capsule TAKE [...] Details Last Updated DateTime 2 98.3 [degF] 24007.5 36 g 67 /min 96 % 96 % 18 /min 167.64 cm 98.3 [degF] 96 % 96 % 18 /min 67 /min 167.64 cm 46632.5 36 g 123 mm[Hg] 85 mm[Hg] 123 [...] Michelle Sharif MD Main - [facility] [address] [place] [phone] 05/20/2022 13:39:36 05/22/2022 12:40:50 Acute urinary tract infection [id number] N39.0 advised to push fluids- f/u with [...] Riojas Member ID Guarantor Name 05/20/2022 1 [facility] - DOS PRIOR TO 2022 - DUAL ELIGIBLE (MEDICARE REPLACEMENT/ADV ANTAGE - HMO) Jayesh Che [id number] Jayesh Che Notes Date Note Type Note Provider Name and Address Organization Details Recorded Time 05/20/2022 text/html HPI: 72 year old, Rwandan speaking male, reporting dysuria with penile pain [...] to process visit SEGMD: Pt interviewed w/ order administrator- only has penile pain inside when he [...] .................... .................... .................... .................... .................... .................... ...... Flight Test Mechanic Note: Sent to a call for a pt complaining of dysuria and penile pain x 2-3 days. SC8 arrives on scene, pt is alert and oriented. Airway is patent. Pt's primary language is Rwandan; closing coordinator line used during visit. Pt complains of [...] clear, concentrated; Urine dip: results uploaded to [employer]. [facility] orders Levofloxacin 500mg PO and urine culture to be sent to [facility]. Pt advised to take Tylenol 500mg q 6hrs prn, increase oral hydration, and follow up with urologist. Levofloxacin administered without incident. [facility] sends script to pt's pharmacy for Levofloxacin and Pyridium. Red flags discussed. Pt has no further questions. .................... .................... .................... .................... .................... .................... .................... . Disposition: Fulfilled Michelle Sharif MD [address] [facility],[address], [place], [phone], [employer] - [employer] 05/20/2022 14:33:50
--- NOTE | 2024-11-17 13:05 | A.OFFVIS_ITS ---
Intake Visit Reasons: OV-Cellulitis left hand abscess-wound check Intake Note: Jayesh is a 74 year old right hand dominant male who presents today for a post operative wound check about one month s/p Left Dorsal Hand Abscess 10/20/24. He instructed to continue his 2lb weight limit and continue gentle ROM. Pt denies any discharge from the wound. Allergies oxycodone [From PERCOCET] Allergy (Unknown, Verified 11/17/24 13:06) HIVES HPI HPI OV-Cellulitis left hand abscess-wound check: Details: Jayesh is a 74 year old right hand dominant male who presents today for a post operative wound check about one month s/p Left Dorsal Hand Abscess 10/20/24. He instructed to continue his 2lb weight limit and continue gentle ROM. Pt denies any discharge from the wound. [facility] Medical History Vitamin D deficiency Hematuria PVD (peripheral vascular disease) Esophageal dysphagia BPH loc w urin obs/LUTS Asthma HTN (hypertension) Surgical History (Updated 11/13/24 @ 07:10 by Citlalli Ellis RN) History of hand surgery Hx of colonoscopy History of surgery Hx of prostatectomy Family History Father No problems noted. Mother No problems noted. 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 Review of Systems Const All systems reviewed & are unremarkable except as noted in HPI and below Physical Exam Const General: no acute distress and alert Orientation/consciousness: patient oriented x3 HEENT Head: Yes normocephalic and Yes atraumatic Eyes EOM: EOMs intact bilaterally Resp Effort & Inspection: normal respiratory effort and able to speak in complete sentences Cardio Jugular venous distension: no JVD Skin General skin exam: turgor normal Rashes: no rashes Neuro General: patient oriented x3 Extrem Other: The patient was alert oriented and in no acute distress The incision is healing well with no drainage or evidence of infection. Sutures removed and Steri-Strips applied His swelling & erythema has resolved He has an ~0.25cm healing wound over the dorsal aspect of the 1st metacarpal with good granulation tissue formation and new skin growth, and no visible tendon. He can make a fist and extend all his digits Full active thumb ROM Sensation is intact Cap refill is brisk Microbiology report: Routine Culture Final 10/22/24 Organism 1 Staphylococcus aureus Quantity 4+ S aureus M.I.C. RX --------- --- Clindamycin <=0.25 S Erythromycin >=8 R Levofloxacin <=0.12 S Oxacillin 0.5 S Penicillin-G >=0.5 R Tetracycline <=1 S Trimethoprim/Sulfamethoxazole <=10 S Psych Appearance: grossly normal Affect: normal affect Attitude: cooperative Assessment & Plan Assessment & Plan (1) Abscess of left hand: Code(s): L02.512 - Cutaneous abscess of left hand Category: Medical Plan Assessment & Plan: 1. 1. Left dorsal hand abscess, S/P I&D DOS: 10/20/24 The patient appears to be doing well post-operatively I educated him about the post-operative course I explained the signs and symptoms of infection, if the patient develops any new or worsening erythema, drainage, pain, or warmth they should contact the clinic or attend the ED. No further antibiotic therapy indicated Patient is educated to keep the area dressed while out and about until the very small wound has closed completely Patient understands this is amenable to this plan Patient can begin a gradual return back to full normal activity at this time Follow-up as needed with any acute concerns Coding Level of Care Code Global (64963) Diagnoses Abscess of left hand L02.512
== END 2024-11-17 13:19 | disposition home or self-care (01) ==
LOC: HO.HOS 12:51
PROVIDERS: PCP Internal Medicine
DX: L02.512 Cutaneous abscess of left hand (principal)
CPT/HCPCS: 99024

== ENCOUNTER → 2024-11-17 12:51 | Outpatient (BNVA) | payer OTHER, SELFPAY | PROVIDERS: PCP Internal Medicine | DX: Z48.817 Encounter for surgical aftercare following surgery on the skin and subcutaneous tissue (principal); Z98.890 Other specified postprocedural states | CPT/HCPCS: 99212 ==

== ENCOUNTER → 2024-11-29 14:39 | Outpatient (BNVA) | payer OTHER, SELFPAY | PROVIDERS: PCP Internal Medicine; Visit Provider Urology ==

== ENCOUNTER 2024-11-30 09:11 | Outpatient (REF) | payer OTHER, SELFPAY ==
--- OUTSIDE RECORDS SUMMARY | 2024-11-30 09:33 | XMS_ITS | Encounter Summary ---
Author Organization [employer] Address [address] [facility] [address] [place] [address] Care Team Providers Care Chemist Biological Name Role Phone Niki Ramos MD Primary Care Provide r Encounter Details Date Type Department Care Team (Late Contact Info) Description 02/19/2023 Orders Only [facility] MED & PEDS [address] [place] [address] Janelle Jones LPN Social History Tobacco Use [...] Office Visit [facility] MEDICINE [address] [place] [address] Niki Ramos MD [address] [place], [place] [phone] documented as of this encounter Visit Diagnoses Not on filedocumented in this encounter Additional Health Concerns Assessment Noted Time PHQ-9 Depression Total Score: 8 03/24/20 23 9:12 AM EDT documented as of this encounter Care Teams Chemist Biological Relationship Specialty Start Date End Date Niki Ramos MD [address] [place] [id number] PCP - General Family Medicine 03/24/18 Ken CASTANEDA 10/24/24 documented as of this encounter
== END 2024-11-30 09:12 | disposition home or self-care (01) ==
LOC: HO.LAB 09:11
PROVIDERS: Visit Provider Urology
DX: R33.9 Retention of urine, unspecified (principal)
CPT/HCPCS: 87086

== ENCOUNTER 2024-11-30 13:22 | Outpatient (AMB) | payer OTHER, SELFPAY ==
--- NOTE | 2024-11-30 13:22 | MHC.OFFVIS ---
Intake Visit Reasons: Prostate Bx results Intake Note: Patient is present for PROSTATE BX RESULTS Urology Medication: FINASTERIDE Antibiotic Allergy: NONE Blood Thinner: NONE Acid Purification Equipment Operator Required: Yes Information Interpreted: non-clinical & clinical Accompanied by: Self / Same As Patient Allergies oxycodone [From PERCOCET] Allergy (Unknown, Verified 11/30/24 13:24) HIVES HPI Comments Details: Jayesh is a pleasant male. He is a patient of Dr. Simmons. He is seen for the following urologic conditions - lower urinary tract symptoms - nephrolithiasis Slovak translation provided by qualified medical assistant internal medicine Telemedicine Evaluation 15 min Consultation [employer] [facility] Video Prostate biopsy results following redo laser GreenLight 11/26 redo GreenLight laser with prostate biopsy JONO 3+ soft Prostate Cancer Grade Group 1 Low Volume - 11/26 Histologic type: Acinar adenocarcinoma Histologic grade: 3+3=6 Gucci score: 3+3=6 Tumor quantitation: - Number cores positive: 2 - LMM 5%, RAL 10% - Total number of cores: 13 % of tissue involved: See above for details Periprostatic fat inv.: Not identified Seminal vesicle inv.: Not identified Perineural inv.: Not identified LVI: Not identified MRI shows 2 lesions of interest. 82 cc. Right base lateral peripheral zone 1.7 cm PI-RADS 4. Left mid transition zone 3.9 cm PI-RADS 5 Lower urinary tract symptoms Here for follow-up visit for hematuria and lower urinary tract symptoms Current therapy terazosin 10 mg effective Prior therapy tamsulosin Prior procedures laser prostatectomy 2018 Cystoscopy 10/23 mild regrowth with high bladder lip - TURP defect, mild tightness PSA 05/27 11, 04/27 11.8 Bladder US 11/25 75gm Prior negative biopsy Nephrolithiasis Prior stone Imaging - 02/23 CT scan 1 mm stone - 02/25 renal ultrasound left kidney small stone, bilateral cysts PFSH Medical History (Updated 11/30/24 @ 14:21 by Gilles Whitley MD) Vitamin D deficiency Hematuria PVD (peripheral vascular disease) Esophageal dysphagia BPH loc w urin obs/LUTS Asthma HTN (hypertension) Surgical History (Updated 11/13/24 @ 07:10 by Citlalli Ellis RN) History of hand surgery Hx of colonoscopy History of surgery Hx of prostatectomy Family History Father No problems noted. Mother No problems noted. 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 Review of Systems Const All systems reviewed & are unremarkable except as noted in HPI and below Reports no additional complaints Resp Reports no additional complaints GI Reports no additional complaints Reports as per HPI Musc Reports no additional complaints Physical Exam Telemedicine evaluation Appropriate responses Regular breathing rate and rhythm HEENT Head: Yes normal to inspection Ears: hearing grossly normal bilaterally Eyes General: appearance normal, both eyes and all related structures Neck Neck: Yes normal visual inspection Chest Chest palpation & inspection: normal inspection of the chest Resp Effort & Inspection: normal respiratory effort and able to speak in complete sentences Telehealth Telehealth Telehealth Platform: [employer] [facility] Location of provider rendering services: practice address Location of patient: address on file Patient Identification confirmed using: Name, : Yes Telehealth method: video Patient verbally consented to treatment: Yes Patient verbally consented to billing insurance company: Yes Patient informed of any privacy concerns related to visit: Yes Minutes spent on Phone/Video with Pt.: 15 Assessment & Plan Assessment & Plan (1) Hormone sensitive prostate cancer: Code(s): C61 - Malignant neoplasm of prostate; Z19.1 - Hormone sensitive malignancy status Category: Medical Plan 4 month follow-up PSA Continue finasteride Orders: Orders Prostate Specific Antigen 4 Months C61 - Malignant neoplasm of prostate, Z19.1 - Hormone sensitive malignancy status Medications: Discontinued terazosin Discontinued Reason: Doctor's Order 10 mg PO BEDTIME 90 days 90 caps 3RF N13.8 - Other obstructive and reflux uropathy, N40.1 - Benign prostatic hyperplasia with lower urinary tract symptoms Patient Instructions: This note is constructed using voice recognition software. While every effort has been made to ensure accuracy hotel front desk agent errors may have been included. Imaging studies, laboratory and physical exam results were discussed and reviewed in detail. No major barriers to patient understanding were identified. An opportunity to ask questions regarding the treatment plan was provided. All questions were answered. The patient expressed understanding and agreement with the above treatment plan. The patient is aware they should contact our office by phone for worsening of their current condition or the appearance of new urologic symptoms. Compliance is encouraged with any medications and followup testing that is ordered. It is a privilege to participate in the urologic care of your patient. If you have any questions or concerns regarding treatment for the above conditions, or other urologic issues, please do not hesitate to contact me. The office telephone contact is [phone]. Sincerely, Dr Gilles Whitley MD, BE [facility] - Urology Compassionate Specialist Care for the Genitourinary System Coding Level of Care Code Tele Est Pt Level 4 (90118) Complex EM visit Add On G2211 Diagnoses Hormone sensitive prostate cancer C61; Z19.1
== END 2024-11-30 14:42 | disposition home or self-care (01) ==
LOC: HO.HUSH 13:22
PROVIDERS: PCP Internal Medicine; Visit Provider Urology
DX: C61 Malignant neoplasm of prostate (principal); Z19.1 Hormone sensitive malignancy status
CPT/HCPCS: 99024

== ENCOUNTER 2024-12-05 12:52 | Outpatient (REF) | payer OTHER, SELFPAY ==
--- OUTSIDE RECORDS SUMMARY | 2024-12-05 14:11 | XMS_ITS | Data Portability ---
Author Organization [place], [place] in - [facility] Address [address] [place] [id number] Care Team Providers Care Television Host Name Role Phone [facility] Referring Provider [phone] Assessment Encounter Date Assessment Date Assessment LastModified by Organization Details LastModified Time 05/20/2022 05/20/2022 I have reviewed and agree with the Assessment and Plan as documented by the Physician Coding Specialist. I provided real -time medical direction via phone for this encounter, and was available for additional phone based assistance as needed. Patient given the opportunity to ask questions. [email or web address] Not available 05/20/2022 13:49:00 Plan of Treatment Reminders Order Date Submit Date Provider Last Modified By Organization Details Last Modified Time Details Appointments None recorded. Lab urinalysis , dipstick 2021 [email or web address] 0 [facility], [address] [place] [address], [id number] 13:53:37 culture, urine 2021 [facility] (Centralized Electronic Ordering - All Locations), Patient Can Go To The Location Of Their Choice, [id number] 08:07:02 Referral None recorded. Procedures None recorded. Surgeries None recorded. Imaging None recorded. Medication Orders Levaquin 500 mg tablet 2021 [facility], [address] [place] [address], [id number], 14:01:24 Levaquin 500 mg tablet 2021 [email or web address] 0 Not available 13:53:37 Pyridium 100 mg tablet 2021 [facility], [address], [place], [id number], 14:01:24 Patient TargetsNo targets recorded. Patient InstructionsNo instructions recorded. Reason for Referral None Reported. Results Created Date Observation Date Name Description Value Unit Range Abnormal Flag Note LastModifiedBy Organization Detail LastModifiedTime 05/20/2005/21/2022 URINE CULTU RE specimen description CLEAN CATCH (URINE ) Not Available [facility] (Centralized Electronic Ordering - All Locations) Patient Can Go To The Location Of Their Choice, [facility] 05/22/2022 08:06:59 05/20/2005/21/2022 URINE CULTU RE special requests NONE Not Available [facility] (Centralized Electronic Ordering - All Locations) Patient Can Go To The Location Of Their Choice, [facility] 05/22/2022 08:06:59 05/20/2005/22/2022 URINE CULTU RE culture NO GROWTH Not Available [facility] (Centralized Electronic Ordering - All Locations) Patient Can Go To The Location Of Their Choice, [facility] 05/22/2022 08:06:59 05/20/2005/22/2022 URINE CULTU RE report status FINAL 2021 Not Available [facility] (Centralized Electronic Ordering - All Locations) Patient Can Go To The Location Of Their Choice, [facility] 05/22/2022 08:06:59 05/20/2005/20/2022 urina lysis , dipst ick Leukocytes trace Not Available [facility] [address] [place] [address], [phone] 05/20/2022 13:48:42 05/20/20 22 05/20/2022 urina lysis , dipst ick Nitrite negati ve Not Available [facility] [address] [place] [address], [phone] 05/20/2022 13:48:42 05/20/20 22 05/20/2022 urina lysis , dipst ick Urobilinogen neg Not Available [facility] [address] [place] [address], [phone] 05/20/2022 13:48:42 05/20/20 22 05/20/2022 urina lysis , dipst ick Protein trace Not Available [facility] - [facility] imelda [address] [place] [address], [phone] 05/20/2022 13:48:42 05/20/20 22 05/20/2022 urina lysis , dipst ick pH 6 Not Available Main - Ins [address], [phone] 05/20/2022 13:48:42 05/20/20 22 05/20/2022 urina lysis , dipst ick Blood 50 rbc Not Available Main - [facility] [address], [phone] 05/20/2022 13:48:42 05/20/20 22 05/20/2022 urina lysis , dipst ick Specific [place] 1.010 Not Available [facility] [address] [place] [address], [phone] 05/20/2022 13:48:42 05/20/20 22 05/20/2022 urina lysis , dipst ick Ketone neg Not Available Main - [facility] [address], [phone] 05/20/2022 13:48:42 05/20/20 22 05/20/2022 urina lysis , dipst ick Bilirubin neg Not Available Main - I nsted [address] [place] [address], [phone] 05/20/2022 13:48:42 05/20/20 22 05/20/2022 urina lysis , dipst ick Glucose neg Not Available Main - Ins [address], [phone] 05/20/2022 13:48:42 05/20/20 22 05/20/2022 urina lysis , dipst ick Appearance sl cloudy Not Available [facility] [address] [place] [address], [phone] 05/20/2022 13:48:42 05/20/20 22 05/20/2022 urina lysis , dipst ick Color pink Not Available Main - Ins [address], [phone] 05/20/2022 13:48:42 Result Notes None recorded. Medical Equipment None Reported. Allergies Allergen ID Allergen Name Allergen Category Reaction Reaction Severity Criticality Documentation Date Start Date Code Code System Note Provider Name and Address Organization Details Recorded Time 1313 acetamino phen / oxycodone medicatio n Not available Not available Not available 05/20/2022 40318 3 RxNorm Michelle Sharif MD [address] [facility],[address], [place], [phone], [facility] - [employer] 2 13:46:59 8126 acetamino phen medicatio n [...] Not Available Not Available No t Available [facility] 10 billion cell-200 mg sprinkle [...] Details Last Updated DateTime 2 98.3 [degF] 01030.5 36 g 67 /min 96 % 96 % 18 /min 167.64 cm 98.3 [degF] 96 % 96 % 18 /min 67 /min 167.64 cm 77953.5 36 g 123 mm[Hg] 85 mm[Hg] 123 [...] Michelle Sharif MD Main - [facility] [address] [place] [phone] 05/20/2022 13:39:36 05/22/2022 12:40:50 Acute urinary tract infection 751907740 N39.0 advised to push fluids- f/u with [...] Riojas Member ID Guarantor Name 05/20/2022 1 [facility] - DOS PRIOR TO 2022 - DUAL ELIGIBLE (MEDICARE REPLACEMENT/ADV ANTAGE - HMO) Jayesh Che [id number] Jayesh Che Notes Date Note Type Note Provider Name and Address Organization Details Recorded Time 05/20/2022 text/html HPI: 72 year old, Kittitian speaking male, reporting dysuria with penile pain [...] to process visit SEGMD: 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 .................... .................... .................... .................... .................... ...... Physician Coding Specialist Note: Sent to a call for a pt complaining of dysuria and penile pain x 2-3 days. SC8 arrives on scene, pt is alert and oriented. Airway is patent. Pt's primary language is Kittitian; operations section manager line used during visit. Pt complains [...] clear, concentrated; Urine dip: results uploaded to [employer]. [facility] orders Levofloxacin 500mg PO and urine culture to be sent to [facility]. Pt advised to take Tylenol 500mg q 6hrs prn, increase oral hydration, and follow up with urologist. Levofloxacin administered without incident. [facility] sends script to pt's pharmacy for Levofloxacin and Pyridium. Red flags discussed. Pt has no further questions. .................... .................... .................... .................... .................... .................... .................... . Disposition: Fulfilled Michelle Sharif MD [address] [facility],[address], [place], [phone], [employer] - [employer] 05/20/2022 14:33:50
== END 2024-12-05 12:53 | disposition home or self-care (01) ==
LOC: HO.HHCLNP 12:52
PROVIDERS: Visit Provider Internal Medicine
DX: R30.0 Dysuria (principal)
CPT/HCPCS: 87086

== ENCOUNTER 2024-12-13 07:40 | Emergency (ER) | payer OTHER, SELFPAY ==
--- NOTE | ~2024-12-13 | CT_ITS ---
EXAMINATION: CT ABDOMEN PELVIS WITHOUT IV CONTRAST HISTORY: R flank pain COMPARISON: Comparison is made with the prior examination dated 01/04/2023. TECHNIQUE: CT scan of the abdomen and pelvis was performed without contrast using standard departmental protocol. Coronal and sagittal reformatted images were generated and reviewed. Oral contrast material was not administered per department protocol. This CT exam was performed with one or more of the following dose reduction techniques: automated exposure control, adjustment of the mA and/or kV according to patient size, use of iterative reconstruction technique. DLP: 350 mGy-cm FINDINGS: LOWER CHEST: There are emphysematous changes at the lung bases. The visualized lung bases are clear. There is no pleural effusion. CARDIOVASCULATURE: The heart is normal in size. There is no pericardial effusion. LIVER: The liver is normal in size and contour. The liver has an unremarkable unenhanced appearance. GALLBLADDER / BILE DUCTS: The gallbladder is unremarkable. There is no intra or extrahepatic biliary ductal dilatation. SPLEEN: The spleen is normal in size and has an unremarkable unenhanced appearance. PANCREAS: The pancreas has an unremarkable unenhanced appearance. ADRENAL GLANDS: Unremarkable. KIDNEYS/RETROPERITONEUM: There is a 3 mm cortical calcification at the lower pole of the right kidney. Multiple nonobstructing left renal calculi are noted measuring up to 3 mm in size.. There is no hydronephrosis or hydroureter. No ureteral calculi are identified. There is a 1.8 cm cyst in the interpolar region of the right kidney. LYMPH NODES: No retroperitoneal lymphadenopathy is identified in the abdomen or pelvis. VASCULATURE: The abdominal aorta is normal in caliber. 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 MESENTERY/PERITONEUM: No free fluid. No masses. There is no free intraperitoneal gas. STOMACH: The stomach is collapsed, limiting evaluation. SMALL BOWEL: The small bowel is normal in caliber. COLON: There is a large amount of stool throughout the colon. APPENDIX: Normal. URINARY BLADDER/PELVIC ORGANS: There is a 4.7 x 2.7 x 3.8 cm heterogeneous rounded hyperdense mass in the dependent portion of the urinary bladder. This could represent blood clot or tumor. The prostate is enlarged. BONES / SOFT TISSUES: There is degenerative disc disease of the spine. CT/CT abdomen pelvis wo IV con IMPRESSION: 1. 4.7 x 2.7 x 3.8 cm rounded hyperdense mass in the urinary bladder which may represent blood clot or tumor. Cystoscopy is recommended. 2. Bilateral nephrolithiasis as described, without evidence of ureteral obstruction. 3. Large amount of stool throughout the colon. 4. 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 Electronically signed by: Serg Stevenson MD 12/13/2024 12:04 PM EDT
[2024-12-13 08:00] VITALS: BP 118/73; PULSE 89; RESP 16; TEMP 36.4; O2SAT 97; BMI 25.0
[2024-12-13 08:14] LABS: MANUAL DIFF FLAG NO
[2024-12-13 08:15] LABS: Basophils Percent Auto 0.4 % (0-2); Eosinophils Absolute Auto 0.2 X10*3/uL (0.0-0.4); Eosinophils Percent Auto 3.5 % (0-4); Hematocrit 39.3 % (42.0-52.0); Hemoglobin 13.3 g/dl (14.0-18.0); Imm Gran Abs Auto 0.01 X10*3/uL (0.00-0.03); Imm Gran Pct Auto 0.2 % (0.0-0.4); Lymphocytes Absolute Auto 0.9 X10*3/uL (1.2-4.9); Lymphocytes Percent Auto 19.6 % (20-40); Mean Corpuscular HGB Conc 33.8 g/dl (31.0-36.0); Mean Corpuscular Hemoglobin 28.9 pg (27.0-33.0); Mean Corpuscular Volume 85.2 fL (80.0-98.0); Mean Platelet Volume 9.5 fL (9.4-12.4); Monocytes Absolute Auto 0.3 X10*3/uL (0.1-1.2); Monocytes Percent Auto 6.5 % (2-11); Neutrophils Absolute Auto 3.2 x10*3/uL (2.0-8.3); Neutrophils Percent Auto 69.8 % (45-73); Platelet Count 179 X10*3/uL (160-400); Red Blood Count 4.61 X10*6/uL (4.60-5.80); Red Cell Distribution Width 12.6 % (11.0-16.0); White Blood Count 4.6 X10*3/uL (4.8-10.8)
[2024-12-13 08:21] LABS: Appearance Urine Turbid; Color Urine RED; Glucose Urine UA 100 mg/dL (Negative); Leukocyte Esterase Urine Trace (Negative); Nitrite Urine Positive (Negative); PH 5.5 (5.0-9.0); Specific Gravity - Urine >= 1.030 (1.005-1.025); UMIC TRIGGER UACC YES; Urine Blood Large (3+) (Negative); Urine Ketones Negative (Negative); Urine Protein 100 (2+) mg/dL (Neg-Trace)
[2024-12-13 08:27] LABS: Anion Gap 11 (12-20); Blood Urea Nitrogen 26 mg/dL (9-16); Calcium 9.5 mg/dL (8.4-10.2); Carbon Dioxide 30 mmol/L (22-29); Chloride 107 mmol/L (96-108); Creatinine Clr Calc Pharmacy 71.3; Estimated Glomerular Filt Rate > 60; Glucose Random 103 mg/dL (60-115); Potassium 3.8 mmol/L (3.3-5.1); Sodium 144 mmol/L (135-145)
[2024-12-13 08:58] LABS: Bacteria Urine 2+ (None Seen); Hyaline Casts Urine 0-2 /LPF (0-2); Squamous Epithelial Cell Urine 0-2 /HPF (0-2); UACC Culture Trigger YES
[2024-12-13 08:59] LABS: RBC Urine >20 /HPF (0-2)
--- NOTE | 2024-12-13 10:23 | ED.MALEGU ---
HPI - Male Genitourinary General Chief complaint: Urogenital-Male Stated complaint: blood in urine Time Seen by Provider: 12/13/24 10:41 Source: patient, old records reviewed and multimedia designer Mode of arrival: ambulatory Limitations: language barrier History of Present Illness ED Provider: Diana JARVIS Narrative: Patient is a 74-year-old [place]an-speakingmale with current hormone sensitive prostate CA, COPD, HTN, asthma, BPH presenting to the emergency department with complaint of hematuria, dysuria, left flank pain and foul-smelling urine. He denies fevers, chills, body aches. Denies nausea or vomiting. States symptoms have been ongoing for over a week. Feels related to a recent urologic procedure. Does not have follow-up with Urology until March. Related Data Home Medications ?Medication ?Instructions ?Recorded ?Confirmed albuterol sulfate 90 mcg/actuation 2 puff PO Q4-6H PRN Shortness Of 08/27/20 11/13/24 aerosol inhaler Breath Or Wheezing atorvastatin 40 mg tablet 40 mg PO BEDTIME 08/27/20 11/13/24 zolpidem 5 mg tablet 5 mg PO BEDTIME PRN Insomnia 08/27/20 11/13/24 hydroxyzine HCl 25 mg tablet 25 mg PO DAILY PRN Anxiety 04/22/21 11/13/24 buspirone 10 mg tablet 10 mg PO BID anxiety 12/17/21 11/13/24 escitalopram oxalate 10 mg tablet 10 mg PO DAILY 12/17/21 11/13/24 lorazepam 0.5 mg tablet 0.5 mg PO BID PRN Anxiety 05/12/23 11/13/24 montelukast 10 mg tablet 10 mg PO BEDTIME 05/12/23 11/13/24 budesonide 160 mcg-glycopyr 9 2 inh inhalation BID 10/17/24 11/13/24 mcg-formot 4.8 mcg/actuation HFA inhaler (Breztri Aerosphere) cholecalciferol (vitamin D3) 25 25 mcg PO DAILY 10/17/24 11/13/24 mcg (1,000 unit) tablet hydrochlorothiazide 12.5 mg tablet 12.5 mg PO DAILY 10/17/24 11/13/24 Previous Rx's ?Medication ?Instructions ?Recorded ipratropium 0.5 mg-albuterol 3 mg 3 ml inhalation Q4-6H PRN wheezing 05/05/24 (2.5 mg base)/3 mL nebulization #180 mL soln polyethylene glycol 3350 17 17 g PO DAILY 2 weeks #238 grams 10/30/24 gram/dose oral powder (Miralax) finasteride 5 mg tablet 5 mg PO DAILY 90 days #90 tabs 11/20/24 cefpodoxime 200 mg tablet 200 mg PO BID #20 tabs 12/13/24 Allergies Allergy/AdvReac Type Severity Reaction Status Date / Time oxycodone [From PERCOCET] Allergy Unknown HIVES Verified 12/13/24 08:03 Review of Systems Review of Systems: Yes all other systems are reviewed and are negative Constitutional: Constitutional: Reports as per [facility] Past Medical History Medical History (Updated 12/13/24 @ 12:24 by Anisha Ortiz NP) Vitamin D deficiency Hematuria PVD (peripheral vascular disease) Esophageal dysphagia BPH loc w urin obs/LUTS Asthma HTN (hypertension) Surgical History (Updated 11/13/24 @ 07:10 by Citlalli Ellis RN) History of hand surgery Hx of colonoscopy History of surgery Hx of prostatectomy Family History Family History Father No problems noted. Mother No problems noted. 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 Blood pressure normal. Heart rate normal. Respiratory rate normal. Temperature normal. Oxygen saturation normal. Const: General: cooperative, healthy appearing and no acute distress Orientation/consciousness: oriented to person, oriented to place, oriented to time and patient oriented x3 Limitations: no limitations HEENT: Head: Yes normocephalic and Yes atraumatic Ears: external ears normal General nose exam: Normal external nose present Face and sinus: Yes face symmetric Mouth: oropharynx normal and moist mucous membranes Throat: Yes uvula midline Eyes: Pupils: Equal, round and reactive pupils present Neck: Neck: Yes normal visual inspection and Yes supple Resp: Effort & Inspection: normal respiratory effort and able to speak in complete sentences Auscultation: clear to auscultation bilaterally Cardio: Rate: regular rate Rhythm: regular rhythm Heart sounds: S1 normal heart sound present and S2 normal heart sound present GI: Palpation (GI): Soft to palpation and nontender Auscultation: normoactive bowel sounds : General: Yes CVA tenderness on the left Back/Spine/Pelvis: Back: CVA tenderness Skin: General skin exam: elasticity normal and turgor normal Neuro: General: oriented to person, oriented to place, oriented to time, patient oriented x3, moves all extremities, no focal motor deficits and CN's II-XI intact bilaterally Cranial nerves: Yes Equal, round and reactive pupils present Cognition (Neuro): normal cognition Extrem: General: Yes full ROM, Yes no pedal edema and Yes no calf tenderness Psych: Mental Status: mental status grossly normal Affect: normal affect Thought process: Normal thought process present Course Course Course Narrative: 74 yo male with PMH of BPH, asthma, HTN, kidney stones, mood disorder here with c/o one day of L flank pain for 1 day with hematuria and dysuria. He has no fevers, n/v/d. No diarrhea. He states he can pee but it hurts. At this time will obtain basic labs, UA, CT scan for R side for stone. this is a RAPID medical screening exam the rest of the history and physical exam is to be done by the main provider. KWAN 12/13/24 1026am Medical Decision Making Medical Decision Making MDM Narrative: Patient is a 74-year-old Zimbabwean-speakingmale with current hormone sensitive prostate CA, COPD, HTN, asthma, BPH presenting to the emergency department with complaint of hematuria, dysuria, left flank pain and foul-smelling urine. On exam patient is awake, A+Ox3, VS WNL, afebrile, normal neurological exam without focal deficits, physical exam findings as above. Given reported symptoms and physical exam findings, initial differential includes but is not limited to UTI, pyelonephritis, renal colic, obstructing calculi, hydronephrosis. Labs notable for mildly elevated BUN, normal creatinine, otherwise unremarkable. CT A/P notable for no evidence of obstructing calculi or hydronephrosis. My interpretation is in agreement with the radiologist's interpretation. UA notable for 3+ blood, trace leukocytes, positive nitrites, 2+ bacteria, 0-2 epithelials. Case discussed with Dr. Whitley who is comfortable with discharge home on p.o. antibiotics. Advised patient to follow-up with urology outpatient. Return precautions discussed at bedside. Patient verbalized understanding of and agreement with plan. In-person tow truck dispatcher was utilized for all interactions, assessments, and discussions. Differential Diagnosis Differential Diagnoses: The differential diagnosis associated with the presentation includes as per [facility] Admission/Observation Consideration of admission/observation: Escalation of care including admission/observation considered Patient would have been admitted to the hospital had their work up had any findings where hospital admission was appropriate and their clinical presentation warranted hospital admission. Lab Data [facility] Lab Attestation statement: I reviewed the patient's lab results. as per [facility] 12/13/24 08:08 12/13/24 08:08 Labs: Lab Results 12/13/24 Range/Units 08:08 WBC 4.6 L (4.8-10.8) X10*3/uL RBC 4.61 (4.60-5.80) X10*6/uL Hgb 13.3 L (14.0-18.0) g/dl Hct 39.3 L (42.0-52.0) % MCV 85.2 (80.0-98.0) fL MCH 28.9 (27.0-33.0) pg MCHC 33.8 (31.0-36.0) g/dl RDW 12.6 (11.0-16.0) % Plt Count 179 (160-400) X10*3/uL MPV 9.5 (9.4-12.4) fL Immature Gran % (Auto) 0.2 (0.0-0.4) % Neut % (Auto) 69.8 (45-73) % Lymph % (Auto) 19.6 L (20-40) % [place] % (Auto) 6.5 (2-11) % Eos % (Auto) 3.5 (0-4) % Baso % (Auto) 0.4 (0-2) % Lymph # (Auto) 0.9 L (1.2-4.9) X10*3/uL [place] # (Auto) 0.3 (0.1-1.2) X10*3/uL Eos # (Auto) 0.2 (0.0-0.4) X10*3/uL Baso # (Auto) 0.0 (0.0-0.2) X10*3/uL Abs Immat Gran (auto) 0.01 (0.00-0.03) X10*3/uL Absolute Neuts (auto) 3.2 (2.0-8.3) x10*3/uL Absolute Nucleated RBC 0.000 (0.0-0.012) X10*3/uL Nucleated RBC % (auto) 0.0 (0.0-0.2) /100WBC Sodium 144 (135-145) mmol/L Potassium 3.8 (3.3-5.1) mmol/L Chloride 107 (96-108) mmol/L Carbon Dioxide 30 H (22-29) mmol/L Anion Gap 11 L (12-20) BUN 26 H (9-16) mg/dL Creatinine 0.82 (0.5-1.4) mg/dL Estim Creat Clear Calc 71.3 Estimated GFR > 60 Random Glucose 103 (60-115) mg/dL Calcium 9.5 (8.4-10.2) mg/dL Urine Color RED Urine Appearance Turbid Urine pH 5.5 (5.0-9.0) Ur Specific [place] >= 1.030 H (1.005-1.025) Urine Protein 100 (2+) H (Neg-Trace) mg/dL Urine Glucose (UA) 100 H (Negative) mg/dL Urine Ketones Negative (Negative) mg/dL Urine Blood Large (3+) H (Negative) Urine Nitrite Positive H (Negative) Ur Leukocyte Esterase Trace H (Negative) Urine RBC >20 H (0-2) /HPF Urine WBC 11-20 (0-5) /HPF Ur Squamous Epith Cells 0-2 (0-2) /HPF Urine Bacteria 2+ (None Seen) Hyaline Casts 0-2 (0-2) /LPF Independent Interpretation I performed an independent interpretation of an: CT Scan Interpretation: No evidence of obstructing calculi or hydronephrosis on CT scan Radiology Impression Discussion of test interpretation with radiology: I have reviewed the radiologist's reading. Radiologist Impression: CT/CT abdomen pelvis wo IV con IMPRESSION: 1. 4.7 x 2.7 x 3.8 cm rounded hyperdense mass in the urinary bladder which may represent blood clot or tumor. Cystoscopy is recommended. 2. Bilateral nephrolithiasis as described, without evidence of ureteral obstruction. 3. Large amount of stool throughout the colon. 4. 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 External Record Review External record reviewed: Inpatient record, Office record and Outpatient record Prescription Management I considered prescription management with: Antibiotic Chronic Conditions Patient?s care impacted by: Cancer Discharge Plan Discharge Clinical Impression: Pyelonephritis of left kidney Patient Disposition: Home, Self-Care Instructions: Kidney Infection (ED) Additional Instructions: You have been evaluated in the emergency department today for your urinary symptoms. Your evaluation, including urinalysis, suggests that your symptoms are due to urinary tract infection which has spread to your kidney. Please take your prescribed antibiotics for the full course of medication as directed. Please follow-up with your primary care provider within 2 days. We also recommend that you follow up with your urologist, Dr. Whitley. Return to the emergency department if you experience fevers 100.4? F or greater, worsening or uncontrolled pain, vomiting, flank pain, or for any other concerning symptoms. Of note, an aneurism of your right common iliac artery was noted on your CT scan. Please follow up with your primary care provider about this. [facility] will be contacting you within 2 business?days after being discharged from the Emergency?Department.? During this?phone call, they will inform you when your follow up appointment will be scheduled. If you have not received a call from [facility] after 2 business?days, please call the?office at [phone]. Prescriptions: New cefpodoxime 200 mg tablet 200 mg PO BID Qty: 20 0RF Rx Instructions: must administer with a meal/food No Action finasteride 5 mg tablet 5 mg PO DAILY 90 Days Qty: 90 1RF cholecalciferol (vitamin D3) 25 mcg (1,000 unit) tablet 25 mcg PO DAILY hydrochlorothiazide 12.5 mg tablet 12.5 mg PO DAILY Breztri Aerosphere 160-9-4.8 mcg/actuation HFA aerosol inhaler 2 inh INHALATION BID polyethylene glycol 3350 [Miralax] 17 gram/dose powder 17 g PO DAILY 14 Days Qty: 238 0RF zolpidem 5 mg tablet 5 mg PO BEDTIME PRN (Reason: Insomnia) albuterol sulfate 90 mcg/actuation HFA aerosol inhaler 2 puff PO Q4-6H PRN (Reason: Shortness Of Breath Or Wheezing) atorvastatin 40 mg tablet 40 mg PO BEDTIME hydroxyzine HCl 25 mg tablet 25 mg PO DAILY PRN (Reason: Anxiety) escitalopram oxalate 10 mg tablet 10 mg PO DAILY buspirone 10 mg tablet 10 mg PO BID lorazepam 0.5 mg tablet 0.5 mg PO BID PRN (Reason: Anxiety) montelukast 10 mg tablet 10 mg PO BEDTIME ipratropium-albuterol 0.5 mg-3 mg(2.5 mg base)/3 mL solution for nebulization 3 ml inhalation Q4-6H PRN (Reason: wheezing) Qty: 180 6RF Referrals: Gilles Whitley MD [Physician] - 1 week (prostate CA, treated for pyelo in ED) Print Language: Zimbabwean
--- OUTSIDE RECORDS SUMMARY | 2024-12-13 12:10 | XMS_ITS | Data Portability ---
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 I provided real -time medical direction via phone for this encounter, and was available for additional phone based assistance as needed. Patient given the opportunity to ask questions. [email or web address] Not available 05/20/2022 13:49:00 Plan of Treatment Reminders Order Date Submit Date Provider Last Modified By Organization Details Last Modified Time Details Appointments None recorded. Lab urinalysis , dipstick 2021 [email or web address] 0 [facility], [address] [place] [address], [phone] 13:53:37 culture, urine 2021 [place] [facility] (Centralized Electronic Ordering - All Locations), Patient Can Go To The Location Of Their Choice, [id number] 08:07:02 Referral None recorded. Procedures None recorded. Surgeries None recorded. Imaging None recorded. Medication Orders Levaquin 500 mg tablet 2021 [facility], [address] [place] [address], [id number], 14:01:24 Levaquin 500 mg tablet 2021 [email or web address] 0 Not available 13:53:37 Pyridium 100 mg tablet 2021 [facility], [address] [place] [address], [id number], 14:01:24 Patient TargetsNo targets recorded. Patient InstructionsNo instructions recorded. Reason for Referral None Reported. Results Created Date Observation Date Name Description Value Unit Range Abnormal Flag Note LastModifiedBy Organization Detail LastModifiedTime 05/20/2005/21/2022 URINE CULTU RE specimen description CLEAN CATCH (URINE ) Not Available [facility] (Centralized Electronic Ordering - All Locations) Patient Can Go To The Location Of Their Choice, [facility] 05/22/2022 08:06:59 05/20/2005/21/2022 URINE CULTU RE special requests NONE Not Available [facility] (Centralized Electronic Ordering - All Locations) Patient Can Go To The Location Of Their Choice, [facility] 05/22/2022 08:06:59 05/20/2005/22/2022 URINE CULTU RE culture NO GROWTH Not Available [facility] (Centralized Electronic Ordering - All Locations) Patient Can Go To The Location Of Their Choice, [facility] 05/22/2022 08:06:59 05/20/2005/22/2022 URINE CULTU RE report status FINAL 2021 Not Available [facility] (Centralized Electronic Ordering - All Locations) Patient Can Go To The Location Of Their Choice, [facility] 05/22/2022 08:06:59 05/20/2005/20/2022 urina lysis , dipst ick Leukocytes trace Not Available [facility] [address] [place] [address], [phone] 05/20/2022 13:48:42 05/20/20 22 05/20/2022 urina lysis , dipst ick Nitrite negati ve Not Available [facility] [address] [place] [address], [phone] 05/20/2022 13:48:42 05/20/20 22 05/20/2022 urina lysis , dipst ick Urobilinogen neg Not Available [facility] [address] [place] [address], [phone] 05/20/2022 13:48:42 05/20/20 22 05/20/2022 urina lysis , dipst ick Protein trace Not Available [facility] - Ins imelda [address] [place] [address], [phone] 05/20/2022 13:48:42 05/20/20 22 05/20/2022 urina lysis , dipst ick pH 6 Not Available Main - Ins [address], [phone] 05/20/2022 13:48:42 05/20/20 22 05/20/2022 urina lysis , dipst ick Blood 50 rbc Not Available Main - [facility] [address], [phone] 05/20/2022 13:48:42 05/20/20 22 05/20/2022 urina lysis , dipst ick Specific [place] 1.010 Not Available [facility] [address] [place] [address], [phone] 05/20/2022 13:48:42 05/20/20 22 05/20/2022 urina lysis , dipst ick Ketone neg Not Available Main - [facility] [address], [phone] 05/20/2022 13:48:42 05/20/20 22 05/20/2022 urina lysis , dipst ick Bilirubin neg Not Available Main - [facility] nsted [address] [place] [address], [phone] 05/20/2022 13:48:42 05/20/20 22 05/20/2022 urina lysis , dipst ick Glucose neg Not Available Main - [facility] [address], [phone] 05/20/2022 13:48:42 05/20/20 22 05/20/2022 urina lysis , dipst ick Appearance sl cloudy Not Available [facility] [address] [place] [address], [phone] 05/20/2022 13:48:42 05/20/20 22 05/20/2022 urina lysis , dipst ick Color pink Not Available Main - [facility] [address], [phone] 05/20/2022 13:48:42 Result Notes None recorded. Medical Equipment None Reported. Allergies Allergen ID Allergen Name Allergen Category Reaction Reaction Severity Criticality Documentation Date Start Date Code Code System Note Provider Name and Address Organization Details Recorded Time 1313 acetamino phen / oxycodone medicatio n Not available Not available Not available 05/20/2022 75964 3 RxNorm Michelle Sharif MD [address] [facility],[address], [place], [phone], [facility] [place] 2 13:46:59 8126 acetamino phen medicatio n [...] Not Available Not Available No t Available [facility] 10 billion cell-200 mg [...] Details Last Updated DateTime 2 98.3 [degF] 27141.5 36 g 67 /min 96 % 96 % 18 /min 167.64 cm 98.3 [degF] 96 % 96 % 18 /min 67 /min 167.64 cm 96844.5 36 g 123 mm[Hg] 85 mm[Hg] 123 [...] Michelle Sharif MD Main - [facility] [address] [place] [phone] 05/20/2022 13:39:36 05/22/2022 12:40:50 Acute urinary tract infection [id number] N39.0 advised to push fluids- f/u with [...] Riojas Member ID Guarantor Name 05/20/2022 1 [facility] - DOS PRIOR TO 2022 - DUAL ELIGIBLE (MEDICARE REPLACEMENT/ADV ANTAGE - HMO) Jayesh Che [id number] Jayesh Che Notes Date Note Type Note Provider Name and Address Organization Details Recorded Time 05/20/2022 text/html HPI: 72 year old, Swedish speaking male, reporting dysuria with penile pain [...] to process visit SEGMD: 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 .................... .................... .................... .................... ...... [employer] Worker Note: Sent to a call for a pt complaining of dysuria and penile pain x 2-3 days. SC8 arrives on scene, pt is alert and oriented. Airway is patent. 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 Pt complains of [...] clear, concentrated; Urine dip: results uploaded to [employer]. [facility] orders Levofloxacin 500mg PO and urine culture to be sent to [facility]. Pt advised to take Tylenol 500mg q 6hrs prn, increase oral hydration, and follow up with urologist. Levofloxacin administered without incident. [facility] sends script to pt's pharmacy for Levofloxacin and Pyridium. Red flags discussed. Pt has no further questions. .................... .................... .................... .................... .................... .................... .................... . Disposition: Fulfilled Michelle Sharif MD [address] [facility],[address], [place], [phone], [facility] [place] 05/20/2022 14:33:50
[2024-12-13 12:13] VITALS: BP 145/84; PULSE 66; RESP 16; TEMP 36.6; O2SAT 97
[2024-12-13 12:40] VITALS: BP 145/84; PULSE 66; RESP 16; TEMP 36.6; O2SAT 97
== END 2024-12-13 12:41 | disposition home or self-care (01) ==
PROVIDERS: Emergency Provider Emergency Medicine Emergency Medical Services; PCP Internal Medicine
DX: N20.0 Calculus of kidney (principal); R31.9 Hematuria, unspecified; Z87.442 Personal history of urinary calculi
CPT/HCPCS: 36415; 74176; 80048; 81001; 85025; 87086; 99284

== ENCOUNTER → 2024-12-13 10:24 | Outpatient (BNV) | payer OTHER, SELFPAY | PROVIDERS: Emergency Provider Emergency Medicine Emergency Medical Services; PCP Internal Medicine; Visit Provider Radiology Diagnostic Radiology | DX: N32.89 Other specified disorders of bladder (principal); N20.0 Calculus of kidney; K56.41 Fecal impaction; I72.3 Aneurysm of iliac artery | CPT/HCPCS: 74176 ==

== ENCOUNTER 2024-12-21 05:39 | Emergency (ER) | payer OTHER, SELFPAY ==
[2024-12-21 05:42] VITALS: BP 130/79; PULSE 84; RESP 20; TEMP 36.3; O2SAT 97; BMI 25.0
[2024-12-21 05:56] LABS: MANUAL DIFF FLAG NO
[2024-12-21 05:57] LABS: Basophils Percent Auto 0.3 % (0-2); Eosinophils Absolute Auto 0.2 X10*3/uL (0.0-0.4); Eosinophils Percent Auto 4.6 % (0-4); Hematocrit 36.4 % (42.0-52.0); Hemoglobin 12.3 g/dl (14.0-18.0); Lymphocytes Absolute Auto 0.8 X10*3/uL (1.2-4.9); Lymphocytes Percent Auto 24.8 % (20-40); Mean Corpuscular HGB Conc 33.8 g/dl (31.0-36.0); Mean Corpuscular Hemoglobin 28.7 pg (27.0-33.0); Mean Corpuscular Volume 84.8 fL (80.0-98.0); Mean Platelet Volume 9.4 fL (9.4-12.4); Monocytes Absolute Auto 0.2 X10*3/uL (0.1-1.2); Monocytes Percent Auto 7.1 % (2-11); Neutrophils Percent Auto 63.2 % (45-73); Platelet Count 167 X10*3/uL (160-400); Red Blood Count 4.29 X10*6/uL (4.60-5.80); Red Cell Distribution Width 12.3 % (11.0-16.0); White Blood Count 3.2 X10*3/uL (4.8-10.8)
[2024-12-21 06:09] LABS: Appearance Urine Hazy; Color Urine RED; Glucose Urine UA 100 mg/dL (Negative); Leukocyte Esterase Urine Large (3+) (Negative); Nitrite Urine Positive (Negative); PH 6.5 (5.0-9.0); UMIC TRIGGER UACC YES; Urine Blood Large (3+) (Negative); Urine Ketones 15 mg/dL (Negative); Urine Protein 300 (3+) mg/dL (Neg-Trace)
[2024-12-21 06:10] LABS: Alanine Aminotransferase 35 U/L (0-40); Albumin Level 4.3 g/dL (3.5-5.0); Alkaline Phosphatase 58 U/L (39-117); Anion Gap 12 (12-20); Aspartate Amino Transferase 30 U/L (5-37); Bilirubin Total 0.6 mg/dL (0.0-1.0); Blood Urea Nitrogen 19 mg/dL (9-16); Calcium 9.5 mg/dL (8.4-10.2); Carbon Dioxide 29 mmol/L (22-29); Chloride 105 mmol/L (96-108); Creatinine Clr Calc Pharmacy 76.9; Estimated Glomerular Filt Rate > 60; Glucose Random 239 mg/dL (60-115); Potassium 4.2 mmol/L (3.3-5.1); Sodium 142 mmol/L (135-145); Total Protein 6.6 g/dL (6.5-8.0)
[2024-12-21 06:25] VITALS: BP 109/72; PULSE 67; RESP 16; TEMP 37.1; O2SAT 95
--- NOTE | 2024-12-21 06:59 | ED.MALEGU ---
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 He denies n/v/d, fevers. He states he constantly has hematuria and feels it is not normal. He is not retaining. He takes all of his medications as prescribed. He sometimes sees small clots as well. He just had CT scan on 12/13 after visit in ED - treated with abx but urine culture was negative and CT scan showed no obstructive stones but possible bladder ?clot or mass. He states he has to wipe his penis throughout the day and he feels like he is bleeding more than he should be. He is not on thinners, he has no hx of VTE and has not smoked in 17 years. MD Complaint: other (hematuria) Onset (ago): day(s) (since 11/26) Duration: constant Location: penis Radiation: penis Severity: mild Quality: dull Relieving factors: none Exacerbating factors: urination Context: recent surgery Associated symptoms: Reports blood in urine Related Data Home Medications ?Medication ?Instructions ?Recorded ?Confirmed albuterol sulfate 90 mcg/actuation 2 puff PO Q4-6H PRN Shortness Of 08/27/20 11/13/24 aerosol inhaler Breath Or Wheezing atorvastatin 40 mg tablet 40 mg PO BEDTIME 08/27/20 11/13/24 zolpidem 5 mg tablet 5 mg PO BEDTIME PRN Insomnia 08/27/20 11/13/24 hydroxyzine HCl 25 mg tablet 25 mg PO DAILY PRN Anxiety 04/22/21 11/13/24 buspirone 10 mg tablet 10 mg PO BID anxiety 12/17/21 11/13/24 escitalopram oxalate 10 mg tablet 10 mg PO DAILY 12/17/21 11/13/24 lorazepam 0.5 mg tablet 0.5 mg PO BID PRN Anxiety 05/12/23 11/13/24 montelukast 10 mg tablet 10 mg PO BEDTIME 05/12/23 11/13/24 budesonide 160 mcg-glycopyr 9 2 inh inhalation BID 10/17/24 11/13/24 mcg-formot 4.8 mcg/actuation HFA inhaler (Breztri Aerosphere) cholecalciferol (vitamin D3) 25 25 mcg PO DAILY 10/17/24 11/13/24 mcg (1,000 unit) tablet hydrochlorothiazide 12.5 mg tablet 12.5 mg PO DAILY 10/17/24 11/13/24 Previous Rx's ?Medication ?Instructions ?Recorded ipratropium 0.5 mg-albuterol 3 mg 3 ml inhalation Q4-6H PRN wheezing 05/05/24 (2.5 mg base)/3 mL nebulization #180 mL soln polyethylene glycol 3350 17 17 g PO DAILY 2 weeks #238 grams 10/30/24 gram/dose oral powder (Miralax) finasteride 5 mg tablet 5 mg PO DAILY 90 days #90 tabs 11/20/24 cefpodoxime 200 mg tablet 200 mg PO BID #20 tabs 12/13/24 tranexamic acid 650 mg tablet 650 mg PO Q12H 7 days #14 tabs 12/21/24 Allergies Allergy/AdvReac Type Severity Reaction Status Date / Time oxycodone (From PERCOCET) Allergy Unknown HIVES Verified 12/21/24 05:44 Review of Systems Review of Systems: Constitutional : No Fever, No Chills, No Fatigue ENT/Mouth : No sore throat, No Rhinorrhea Eyes: No Eye Pain, No Swelling, No Redness Cardiovascular : No Chest Pain, No SOB, No Dyspnea on Exertion Respiratory : No Cough, No Sputum Gastrointestinal : No Nausea, No Vomiting, No Diarrhea, No abdominal Pain Genitourinary : No Dysuria, No Urinary Frequency, pos Hematuria, Musculoskeletal : No joint pain, No Myalgias, No Joint Swelling Skin : No Skin Lesions, No rash Neuro : No Weakness, No Numbness, No Dizziness, no Headache All other systems reviewed and are negative [facility] Past Medical History Attestation statement: The following information was validated with the patient. Source: old records reviewed Medical History Vitamin D deficiency Hematuria PVD (peripheral vascular disease) Esophageal dysphagia BPH loc w urin obs/LUTS Asthma HTN (hypertension) Surgical History History of hand surgery Hx of colonoscopy History of surgery Hx of prostatectomy Family History Family History Father No problems noted. Mother No problems noted. 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 Oriented X3. No acute distress. Eyes: Pupils equal, round and reactive to light. ENT: Pharynx normal. Neck: Normal inspection. Neck supple. CVS: Normal heart rate and rhythm. Pulses normal. Respiratory: No respiratory distress. Breath sounds normal. Abdomen: Soft and nontender. no active bleeding Skin: Skin warm and dry. Normal skin color. Normal skin turgor. Extremities: No lower extremity edema. No calf ttp Neuro: Oriented X 3. No motor deficit. No sensory deficit. CN2-12 intact Medical Decision Making Medical Decision Making MDM Narrative: 74 yo male with PMH of COPD, BPH, asthma, HTN, renal colic, s/p greenlight prostate biopsy on 11/26, hormone sensitive prostate cancer who is here today with c/o hematuria that has been going on since 11/26 and states he doesn't think this is normal. He has no n/v. He states he sometimes feels dizzy. He has no fevers. He has no hx of blood clots and not a smoker - at this time his bladder scan was 200 then he voided 200 he is not retaining. I am going to call Dr. Whitley and discuss tranexamic acid dose. Differential Diagnosis Differential Diagnoses: The differential diagnosis associated with the presentation includes hematuria post procedure, retention, no systemic symptoms to suggest infection no pain to suggest renal colic Admission/Observation Consideration of admission/observation: Escalation of care including admission/observation considered VS stable, H/H slight trend down but hx of same in past, start on tranexamic acid Consult Healthcare Provider Management of the patient was discussed with: Warp[place] Dr. Whitley aware discussed tranexamic acid and use in this case Lab Data [facility] Lab Attestation statement: I reviewed the patient's lab results. urine has nitrite but I suspect this is contamination as recent same urine culture was negative and his symptoms did not improve with abx 12/21/24 05:51 12/21/24 05:51 Labs: Lab Results 12/21/24 12/21/24 Range/Units 05:51 06:03 WBC 3.2 L (4.8-10.8) X10*3/uL RBC 4.29 L (4.60-5.80) X10*6/uL Hgb 12.3 L (14.0-18.0) g/dl Hct 36.4 L (42.0-52.0) % MCV 84.8 (80.0-98.0) fL MCH 28.7 (27.0-33.0) pg MCHC 33.8 (31.0-36.0) g/dl RDW 12.3 (11.0-16.0) % Plt Count 167 (160-400) X10*3/uL MPV 9.4 (9.4-12.4) fL Immature Gran % (Auto) 0.0 (0.0-0.4) % Neut % (Auto) 63.2 (45-73) % Lymph % (Auto) 24.8 (20-40) % [place] % (Auto) 7.1 (2-11) % Eos % (Auto) 4.6 H (0-4) % Baso % (Auto) 0.3 (0-2) % Lymph # (Auto) 0.8 L (1.2-4.9) X10*3/uL [place] # (Auto) 0.2 (0.1-1.2) X10*3/uL Eos # (Auto) 0.2 (0.0-0.4) X10*3/uL Baso # (Auto) 0.0 (0.0-0.2) X10*3/uL Abs Immat Gran (auto) 0.00 (0.00-0.03) X10*3/uL Absolute Neuts (auto) 2.0 (2.0-8.3) x10*3/uL Absolute Nucleated RBC 0.000 (0.0-0.012) X10*3/uL Nucleated RBC % (auto) 0.0 (0.0-0.2) /100WBC Sodium 142 (135-145) mmol/L Potassium 4.2 (3.3-5.1) mmol/L Chloride 105 (96-108) mmol/L Carbon Dioxide 29 (22-29) mmol/L Anion Gap 12 (12-20) BUN 19 H (9-16) mg/dL Creatinine 0.76 (0.5-1.4) mg/dL Estim Creat Clear Calc 76.9 Estimated GFR > 60 Random Glucose 239 H (60-115) mg/dL Calcium 9.5 (8.4-10.2) mg/dL Total Bilirubin 0.6 (0.0-1.0) mg/dL AST 30 (5-37) U/L ALT 35 (0-40) U/L Alkaline Phosphatase 58 (39-117) U/L Total Protein 6.6 (6.5-8.0) g/dL Albumin 4.3 (3.5-5.0) g/dL Urine Color RED Urine Appearance Hazy Urine pH 6.5 (5.0-9.0) Ur Specific [place] 1.020 (1.005-1.025) Urine Protein 300 (3+) H (Neg-Trace) mg/dL Urine Glucose (UA) 100 H (Negative) mg/dL Urine Ketones 15 (Negative) mg/dL Urine Blood Large (3+) H (Negative) Urine Nitrite Positive H (Negative) Ur Leukocyte Esterase Large (3+) H (Negative) Urine RBC >20 H (0-2) /HPF Urine WBC 21-50 (0-5) /HPF Ur Squamous Epith Cells 0-2 (0-2) /HPF Urine Bacteria 1+ (None Seen) Hyaline Casts 0-2 (0-2) /LPF External Record Review External record reviewed: Inpatient record and Outpatient record Prescription Management I considered prescription management with: Other Discharge Plan Discharge Clinical Impression: Hematuria Qualifiers: Hematuria type: gross Qualified Code(s): R31.0 - Gross hematuria Patient Disposition: Home, Self-Care Instructions: Hematuria (ED) Additional Instructions: labs reassuring return for chest pain, dyspnea, leg swelling, unable to urinate or any other concerns please call Dr. Whitley's office to follow up Prescriptions: New tranexamic acid 650 mg tablet 650 mg PO Q12H 7 Days Qty: 14 0RF No Action finasteride 5 mg tablet 5 mg PO DAILY 90 Days Qty: 90 1RF cholecalciferol (vitamin D3) 25 mcg (1,000 unit) tablet 25 mcg PO DAILY hydrochlorothiazide 12.5 mg tablet 12.5 mg PO DAILY Breztri Aerosphere 160-9-4.8 mcg/actuation HFA aerosol inhaler 2 inh INHALATION BID polyethylene glycol 3350 [Miralax] 17 gram/dose powder 17 g PO DAILY 14 Days Qty: 238 0RF cefpodoxime 200 mg tablet 200 mg PO BID Qty: 20 0RF Rx Instructions: must administer with a meal/food zolpidem 5 mg tablet 5 mg PO BEDTIME PRN (Reason: Insomnia) albuterol sulfate 90 mcg/actuation HFA aerosol inhaler 2 puff PO Q4-6H PRN (Reason: Shortness Of Breath Or Wheezing) atorvastatin 40 mg tablet 40 mg PO BEDTIME hydroxyzine HCl 25 mg tablet 25 mg PO DAILY PRN (Reason: Anxiety) escitalopram oxalate 10 mg tablet 10 mg PO DAILY buspirone 10 mg tablet 10 mg PO BID lorazepam 0.5 mg tablet 0.5 mg PO BID PRN (Reason: Anxiety) montelukast 10 mg tablet 10 mg PO BEDTIME ipratropium-albuterol 0.5 mg-3 mg(2.5 mg base)/3 mL solution for nebulization 3 ml inhalation Q4-6H PRN (Reason: wheezing) Qty: 180 6RF Referrals: [facility] [Provider Group, Urology] Referral Note: please call to follow up Print Language: Scottish
[2024-12-21 07:37] LABS: Bacteria Urine 1+ (None Seen); Hyaline Casts Urine 0-2 /LPF (0-2); Squamous Epithelial Cell Urine 0-2 /HPF (0-2); UACC Culture Trigger YES
[2024-12-21 07:38] LABS: RBC Urine >20 /HPF (0-2); WBC Urine 21-50 /HPF (0-5)
[2024-12-21 08:36] VITALS: BP 109/72; PULSE 67; RESP 16; TEMP 37.1; O2SAT 95
== END 2024-12-21 08:44 | disposition home or self-care (01) ==
PROVIDERS: Emergency Provider Emergency Medicine
DX: R31.9 Hematuria, unspecified (principal); N48.89 Other specified disorders of penis; N40.0 Benign prostatic hyperplasia without lower urinary tract symptoms; R42 Dizziness and giddiness; J44.9 Chronic obstructive pulmonary disease, unspecified; I10 Essential (primary) hypertension; Z79.899 Other long term (current) drug therapy; Z87.891 Personal history of nicotine dependence
CPT/HCPCS: 36415; 51798; 80053; 81001; 85025; 87086; 99283; 99285

== ENCOUNTER 2024-12-27 13:53 | Outpatient (AMB) | payer OTHER, SELFPAY ==
--- NOTE | 2024-12-27 13:54 | MHC.OFFVIS ---
Intake Visit Reasons: Greenlight follow up Intake Note: Patient is present for follow up green light laser for Manager [facility]ing Urology Medication: FINASTERIDE Antibiotic Allergy: NONE Blood Thinner: NONE Insurance Claims Specialist Required: Yes Information Interpreted: non-clinical & clinical Accompanied by: Self / Same As Patient Allergies oxycodone (From PERCOCET) Allergy (Unknown, Verified 12/27/24 14:02) HIVES HPI Comments Details: Jayesh is a pleasant male. He is a patient of Dr. Simmons. He is seen for the following urologic conditions - lower urinary tract symptoms - nephrolithiasis Finnish translation provided by qualified medical records manager 6 week follow-up GreenLight laser Has had some intermittent bleeding and presented to emergency room Continue finasteride Six-month follow-up PSA JONO 3+ soft Extend tranexamic acid to once a day daily for 2 weeks Follow-up March for PSA Prostate Cancer Grade Group 1 Low Volume - 11/26 Histologic type: Acinar adenocarcinoma Histologic grade: 3+3=6 Holland score: 3+3=6 Tumor quantitation: - Number cores positive: 2 - LMM 5%, RAL 10% - Total number of cores: 13 % of tissue involved: See above for details Periprostatic fat inv.: Not identified Seminal vesicle inv.: Not identified Perineural inv.: Not identified LVI: Not identified MRI shows 2 lesions of interest. 82 cc. Right base lateral peripheral zone 1.7 cm PI-RADS 4. Left mid transition zone 3.9 cm PI-RADS 5 Lower urinary tract symptoms Here for follow-up visit for hematuria and lower urinary tract symptoms Current therapy terazosin 10 mg effective Prior therapy tamsulosin Prior procedures laser prostatectomy 2018 Cystoscopy 10/23 mild regrowth with high bladder lip - TURP defect, mild tightness PSA 05/27 11, 04/27 11.8 Bladder US 11/25 75gm Prior negative biopsy Nephrolithiasis Prior stone Imaging - 02/23 CT scan 1 mm stone - 02/25 renal ultrasound left kidney small stone, bilateral cysts PFSH Medical History Vitamin D deficiency Hematuria PVD (peripheral vascular disease) Esophageal dysphagia BPH loc w urin obs/LUTS Asthma HTN (hypertension) Surgical History History of hand surgery Hx of colonoscopy History of surgery Hx of prostatectomy Family History Father No problems noted. Mother No problems noted. 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 Review of Systems Const Denies chills and Denies fever(s) Card Reports no additional complaints and Denies syncope Resp Denies cough GI Denies abdominal pain and Denies heartburn Reports as per HPI and Denies change in libido Neuro Denies syncope Psych Denies change in libido Endo Denies change in libido Physical Exam Const General: cooperative, healthy appearing, comfortable and no acute distress Orientation/consciousness: patient oriented x3 HEENT Face and sinus: Yes normal facial exam Mouth: moist mucous membranes Neck Neck: Yes normal visual inspection, Yes full ROM and Yes trachea midline Chest Chest palpation & inspection: normal inspection of the chest Resp Effort & Inspection: normal respiratory effort, able to speak in complete sentences and no respiratory distress GI Inspection: Yes normal to inspection Back/Spine/Pelvis Cervical Spine: normal cervical lordosis Thoracic/Lumbar Spine: thoracic and lumbar spine normal to inspection Skin General skin exam: no rashes or lesions noted Neuro General: patient oriented x3, gait normal, tone normal and moves all extremities Extrem General: Yes normal to inspection and Yes capillary refill normal Assessment & Plan Assessment & Plan (1) BPH w urinary obs/LUTS: Comment: Laser prostatectomy 2018 Code(s): N40.1 - Benign prostatic hyperplasia with lower urinary tract symptoms; N13.8 - Other obstructive and reflux uropathy Category: Medical (2) Gross hematuria: Code(s): R31.0 - Gross hematuria Category: Medical (3) Hormone sensitive prostate cancer: Code(s): C61 - Malignant neoplasm of prostate; Z19.1 - Hormone sensitive malignancy status Category: Medical Plan Check PSA March Continue daily tranexamic acid for 2 weeks Orders: Orders PSA,Total (Free>4and<10) 3 Months C61 - Malignant neoplasm of prostate, Z19.1 - Hormone sensitive malignancy status Medications: Changed From tranexamic acid 650 mg PO Q12H 7 days 14 tabs 0RF C61 - Malignant neoplasm of prostate, Z19.1 - Hormone sensitive malignancy status To tranexamic acid 650 mg PO DAILY 14 tabs 0RF 14 days C61 - Malignant neoplasm of prostate, Z19.1 - Hormone sensitive malignancy status Patient Instructions: This note is constructed using voice recognition software. While every effort has been made to ensure accuracy auricular acupuncturist errors may have been included. Imaging studies, laboratory and physical exam results were discussed and reviewed in detail. No major barriers to patient understanding were identified. An opportunity to ask questions regarding the treatment plan was provided. All questions were answered. The patient expressed understanding and agreement with the above treatment plan. The patient is aware they should contact our office by phone for worsening of their current condition or the appearance of new urologic symptoms. Compliance is encouraged with any medications and followup testing that is ordered. It is a privilege to participate in the urologic care of your patient. If you have any questions or concerns regarding treatment for the above conditions, or other urologic issues, please do not hesitate to contact me. The office telephone contact is [phone]. Sincerely, Dr Gilles Whitley MD, BE [facility] - Urology Compassionate Specialist Care for the Genitourinary System Coding Level of Care Code Est Pt Level 4 (27489) Diagnoses BPH w urinary obs/LUTS N40.1; N13.8 Gross hematuria R31.0 Hormone sensitive prostate cancer C61; Z19.1
--- OUTSIDE RECORDS SUMMARY | 2024-12-27 16:36 | XMS_ITS | Data Portability ---
Author Organization [employer] [facility], [facility] Address [address] [place] [id number] Care Team Providers Care Fire Tender Name Role Phone [facility] Referring Provider Assessment Encounter Date Assessment Date Assessment LastModified by Organization Details LastModified Time 05/20/2022 05/20/2022 I have reviewed and agree with the Assessment and Plan as documented by the Comfort Filler. I provided real -time medical direction via phone for this encounter, and was available for additional phone based assistance as needed. Patient given the opportunity to ask questions. [email or web address] Not available 05/20/2022 13:49:00 Plan of Treatment Reminders Order Date Submit Date Provider Last Modified By Organization Details Last Modified Time Details Appointments None recorded. Lab urinalysis , dipstick 2021 [email or web address] 0 [facility], [address] [place] [address], [id number] 13:53:37 culture, urine 2021 [place] [facility] (Centralized Electronic Ordering - All Locations), Patient Can Go To The Location Of Their Choice, [id number] 08:07:02 Referral None recorded. Procedures None recorded. Surgeries None recorded. Imaging None recorded. Medication Orders Levaquin 500 mg tablet 2021 [facility], [address] [place] [address], [id number], 14:01:24 Levaquin 500 mg tablet 2021 [email or web address] 0 Not available 13:53:37 Pyridium 100 mg tablet 2021 [facility], [address] [place] [address] [place], [id number], 14:01:24 Patient TargetsNo targets recorded. Patient InstructionsNo [...] Location Of Their Choice, [facility] 05/22/2022 08:06:59 05/20/20 22 05/21/2022 URINE CULTU RE special requests NONE Not Available [facility] (Centralized Electronic Ordering - All Locations) Patient Can Go To The Location Of Their Choice, [id number] 05/22/2022 08:06:59 05/20/2005/22/2022 URINE CULTU RE culture NO GROWTH Not Available [facility] (Centralized Electronic Ordering - All Locations) Patient Can Go To The Location Of Their Choice, [facility] 05/22/2022 08:06:59 05/20/2005/22/2022 URINE CULTU RE report status FINAL 2021 Not Available [facility] (Centralized Electronic Ordering - All Locations) Patient Can Go To The Location Of Their Choice, [id number] 05/22/2022 08:06:59 05/20/2005/20/2022 urina lysis , dipst ick Leukocytes trace Not Available Main - Insted [address] [place] [address], [phone] 05/20/2022 13:48:42 05/20/20 22 05/20/2022 urina lysis , dipst ick Nitrite negati ve Not Available Main - Inst ed [address] [place] [address], [phone] 05/20/2022 13:48:42 05/20/20 22 05/20/2022 urina lysis , dipst ick Urobilinogen neg Not Available Main - Insted [address] [place] [address], [phone] 05/20/2022 13:48:42 05/20/20 22 05/20/2022 urina lysis , dipst ick Protein trace Not Available Main - Ins imelda [address] [place] [address], [phone] 05/20/2022 13:48:42 05/20/20 22 05/20/2022 urina lysis , dipst ick pH 6 Not Available Main - Ins [address], [phone] 05/20/2022 13:48:42 05/20/20 22 05/20/2022 urina lysis , dipst ick Blood 50 rbc Not Available Main - Ins [address], [address] 05/20/2022 13:48:42 05/20/20 22 05/20/2022 urina lysis , dipst ick Specific [place] 1.010 Not Available Main - Insted [address] [place] [address], [phone] 05/20/2022 13:48:42 05/20/20 22 05/20/2022 urina lysis , dipst ick Ketone neg Not Available Main - Ins [address], [phone] 05/20/2022 13:48:42 05/20/20 22 05/20/2022 urina lysis , dipst ick Bilirubin neg Not Available Main - I [address], [address] 05/20/2022 13:48:42 05/20/20 22 05/20/2022 urina lysis , dipst ick Glucose neg Not Available Main - Ins [address], [phone] 05/20/2022 13:48:42 05/20/20 22 05/20/2022 urina lysis , dipst ick Appearance sl cloudy Not Available Main - Inst ed [address] [place] [address], [phone] 05/20/2022 13:48:42 05/20/20 22 05/20/2022 urina lysis , dipst ick Color pink Not Available Main - Ins [address], [phone] 05/20/2022 13:48:42 Result Notes None recorded. Medical Equipment None Reported. Allergies Allergen ID Allergen Name Allergen Category Reaction Reaction Severity Criticality Documentation Date Start Date Code Code System Note Provider Name and Address Organization Details Recorded Time 1313 acetamino phen / oxycodone medicatio n Not available Not available Not available 05/20/2022 08910 3 RxNorm Michelle Sharif MD [address] [facility],[address], [place], [phone], [facility] - [employer] 2 13:46:59 8126 acetamino phen medicatio n [...] Not Available Not Available No t Available [facility] 10 billion cell-200 mg [...] Details Last Updated DateTime 2 98.3 [degF] 03511.5 36 g 67 /min 96 % 96 % 18 /min 167.64 cm 98.3 [degF] 96 % 96 % 18 /min 67 /min 167.64 cm 81613.5 36 g 123 mm[Hg] 85 mm[Hg] 123 [...] Michelle Sharif MD Main - instED [address] [place] [address] 05/20/2022 13:39:36 05/22/2022 12:40:50 Acute urinary tract infection [id number] N39.0 advised to push fluids- f/u with [...] Riojas Member ID Guarantor Name 05/20/2022 1 [facility] - DOS PRIOR TO 2022 - DUAL ELIGIBLE (MEDICARE REPLACEMENT/ADV ANTAGE - HMO) Jayesh Che [id number] Jayesh Che Notes Date Note Type Note Provider Name and Address Organization Details Recorded Time 05/20/2022 text/html HPI: 72 year old, Slovenian speaking male, reporting dysuria with penile pain [...] to process visit SEGMD: Pt interviewed w/ barrel washer- only has penile pain inside when he [...] .................... .................... .................... .................... .................... .................... ...... Comfort Filler Note: Sent to a call for a pt complaining of dysuria and penile pain x 2-3 days. SC8 arrives on scene, pt is alert and oriented. Airway is patent. Pt's primary language is Slovenian; lay brother line used during visit. Pt complains of [...] clear, concentrated; Urine dip: results uploaded to [employer]. [facility] orders Levofloxacin 500mg PO and urine culture to be sent to [facility]. Pt advised to take Tylenol 500mg q 6hrs prn, increase oral hydration, and follow up with urologist. Levofloxacin administered without incident. [facility] sends script to pt's pharmacy for Levofloxacin and Pyridium. Red flags discussed. Pt has no further questions. .................... .................... .................... .................... .................... .................... .................... . Disposition: Fulfilled Michelle Sharif MD [address] [facility],[address], [place], [address], [employer] [facility] [employer] 05/20/2022 14:33:50
== END 2024-12-27 14:46 | disposition home or self-care (01) ==
LOC: HO.HUSH 13:53
PROVIDERS: Visit Provider Urology
DX: N40.1 Benign prostatic hyperplasia with lower urinary tract symptoms (principal); N13.8 Other obstructive and reflux uropathy; R31.0 Gross hematuria; C61 Malignant neoplasm of prostate; Z19.1 Hormone sensitive malignancy status; Z13.9 Encounter for screening, unspecified
CPT/HCPCS: 99024

== ENCOUNTER → 2024-12-27 13:53 | Outpatient (BNVA) | payer OTHER, SELFPAY | PROVIDERS: Visit Provider Urology | DX: N40.1 Benign prostatic hyperplasia with lower urinary tract symptoms (principal); N13.8 Other obstructive and reflux uropathy; C61 Malignant neoplasm of prostate; Z19.1 Hormone sensitive malignancy status; R31.0 Gross hematuria | CPT/HCPCS: 81003; 99212 ==

== ENCOUNTER 2025-01-02 09:52 | Outpatient (REF) | payer OTHER, SELFPAY ==
--- OUTSIDE RECORDS SUMMARY | 2025-01-02 11:25 | XMS_ITS | Encounter Summary ---
Author Organization [employer] Address [address] [facility] [address] [place] [address] Care Team Providers Care Quality Assurance Consultant Name Role Phone Niki Ramos MD Primary Care Provide r Encounter Details Date Type Department Care Team (Late Contact Info) Description 02/19/2023 Orders Only [facility] MED & PEDS [address] [place], [place] [phone] Janelle Jones LPN Social History Tobacco Use [...] Care Team (Late st Contact Info) Description 03/07/2025 10:00 AM EDT Office Visit [facility] MEDICINE [address] [place] [address] Niki Ramos MD [address] [place] [address] 03/15/2025 10:30 AM EDT Office Visit [facility] OPTOMETRY [address] [place], [place] [phone] Madeline Guillen OD [address] [place] [address] documented as of this encounter Visit Diagnoses Not on filedocumented in this encounter Additional Health Concerns Assessment Noted Time PHQ-9 Depression Total Score: 8 09/26/19 23 9:12 AM EDT documented as of this encounter Care Teams Quality Assurance Consultant Relationship Specialty Start Date End Date Niki Ramos MD [address] [place] [address] PCP - General Family Medicine [facility] documented as of this encounter
== END 2025-01-02 09:53 | disposition home or self-care (01) ==
LOC: HO.LAB 09:52
PROVIDERS: Visit Provider Urology
DX: R31.0 Gross hematuria (principal); N40.1 Benign prostatic hyperplasia with lower urinary tract symptoms; N13.8 Other obstructive and reflux uropathy
CPT/HCPCS: 81003; 87086

== ENCOUNTER 2025-01-02 09:52 | Outpatient (AMB) | payer OTHER, SELFPAY ==
--- NOTE | 2025-01-02 10:18 | AM.OFFVISNUR ---
Intake Visit Reasons: urine sample Allergies oxycodone (From PERCOCET) Allergy (Unknown, Verified 12/27/24 14:02) HIVES Nursing Note Patient came into office reporting blood in his urine, stated that when he is on tranexamic acid bleeding stops but once he is not on medication it begins again. Reviewed with Lalita OLIVARES: run UA and review again. UA run, will send urine for culture. Urine red tinged, pos lueks, pos blood and PH 6. Send patient 7 days daily tranexamic acid, script sent. Patient is aware and agreeable. Advised patient to increase fluids to help flush blood from bladder. Patient understood. Coding
--- OUTSIDE RECORDS SUMMARY | 2025-01-02 10:47 | XMS_ITS | Data Portability ---
Author Organization [employer] [facility], [facility] [employer] [facility] Address [address] [place] [id number] Care Team Providers Care Tag Machine Operator Name Role Phone [facility] Referring Provider Assessment Encounter Date Assessment Date Assessment LastModified by Organization Details LastModified Time 05/20/2022 05/20/2022 I have reviewed and agree with the Assessment and Plan as documented by the Frozen Pie Maker. I provided real -time medical direction via phone for this encounter, and was available for additional phone based assistance as needed. Patient given the opportunity to ask questions. [email or web address] Not available 05/20/2022 13:49:00 Plan of Treatment Reminders Order Date Submit Date Provider Last Modified By Organization Details Last Modified Time Details Appointments None recorded. Lab urinalysis , dipstick 2021 [email or web address] [address] [facility], [address] [place] [address], [id number] 13:53:37 culture, urine 2021 [place] [facility] (Centralized Electronic Ordering - All Locations), Patient Can Go To The Location Of Their Choice, [id number] 08:07:02 Referral None recorded. Procedures None recorded. Surgeries None recorded. Imaging None recorded. Medication Orders Levaquin 500 mg tablet 2021 [facility], [address] [place] [address], [id number], 14:01:24 Levaquin 500 mg tablet 2021 [email or web address] 0 Not available 13:53:37 Pyridium 100 mg tablet 2021 [facility], [address] [place] [address] [place], [id number], 14:01:24 Patient TargetsNo targets recorded. Patient InstructionsNo [...] Go To The Location Of Their Choice, [id number] 05/22/2022 08:06:59 05/20/2005/20/2022 urina lysis , dipst ick Leukocytes trace Not Available Main - Insted [address] [place] [address], [phone] 05/20/2022 13:48:42 05/20/20 22 05/20/2022 urina lysis , dipst ick Nitrite negati ve Not Available Main - Inst ed [address] [place] [address], [phone] 05/20/2022 13:48:42 05/20/20 22 05/20/2022 urina lysis , dipst ick Urobilinogen neg Not Available Main - Insted [address] [place] [address], [phone] 05/20/2022 13:48:42 05/20/20 22 05/20/2022 urina lysis , dipst ick Protein trace Not Available Main - Ins imelda [address] [place] [address], [phone] 05/20/2022 13:48:42 05/20/20 22 05/20/2022 urina lysis , dipst ick pH 6 Not Available Main - Ins [address], [address] 05/20/2022 13:48:42 05/20/20 22 05/20/2022 urina lysis , dipst ick Blood 50 rbc Not Available Main - Ins [address], [address] 05/20/2022 13:48:42 05/20/20 22 05/20/2022 urina lysis , dipst ick Specific [place] 1.010 Not Available Main - Insted [address] [place] [address], [phone] 05/20/2022 13:48:42 05/20/20 22 05/20/2022 urina lysis , dipst ick Ketone neg Not Available Main - Ins [address], [phone] 05/20/2022 13:48:42 05/20/20 22 05/20/2022 urina lysis , dipst ick Bilirubin neg Not Available Main - I [address], [phone] 05/20/2022 13:48:42 05/20/20 22 05/20/2022 urina lysis , dipst ick Glucose neg Not Available Main - Ins [address], [phone] 05/20/2022 13:48:42 05/20/20 22 05/20/2022 urina lysis , dipst ick Appearance sl cloudy Not Available Main - Inst ed [address] [place] [address], [phone] 05/20/2022 13:48:42 05/20/20 22 05/20/2022 urina lysis , dipst ick Color pink Not Available Main - Ins [address], [address] 05/20/2022 13:48:42 Result Notes None recorded. Medical Equipment None Reported. Allergies Allergen ID Allergen Name Allergen Category Reaction Reaction Severity Criticality Documentation Date Start Date Code Code System Note Provider Name and Address Organization Details Recorded Time 1313 acetamino phen / oxycodone medicatio n Not available Not available Not available 05/20/2022 14620 3 RxNorm Michelle Sharif MD [address] [facility],[address], [place], [phone], [facility] - [employer] 2 13:46:59 8126 acetamino phen medicatio n [...] Not Available Not Available No t Available [facility] 10 billion cell-200 mg [...] Details Last Updated DateTime 2 98.3 [degF] 86481.5 36 g 67 /min 96 % 96 % 18 /min 167.64 cm 98.3 [degF] 96 % 96 % 18 /min 67 /min 167.64 cm 60068.5 36 g 123 mm[Hg] 85 mm[Hg] 123 [...] Michelle Sharif MD Main - instED [address] [place] [address] 05/20/2022 13:39:36 05/22/2022 12:40:50 Acute urinary tract infection 380999712 N39.0 advised to push fluids- f/u with [...] Riojas Member ID Guarantor Name 05/20/2022 1 [facility] - DOS PRIOR TO 2022 - DUAL ELIGIBLE (MEDICARE REPLACEMENT/ADV ANTAGE - HMO) Jayesh Che [id number] Jayesh Che Notes Date Note Type Note Provider Name and Address Organization Details Recorded Time 05/20/2022 text/html HPI: 72 year old, Cook Islander speaking male, reporting dysuria with penile [...] to process visit SEGMD: 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 .................... .................... .................... .................... .................... ...... Frozen Pie Maker Note: Sent to a call for a pt complaining of dysuria and penile pain x 2-3 days. SC8 arrives on scene, pt is alert and oriented. Airway is patent. Pt's primary language is Cook Islander; library page line used during visit. Pt complains of [...] clear, concentrated; Urine dip: results uploaded to [employer] / [employer]. [facility] orders Levofloxacin 500mg PO and urine culture to be sent to [facility]. Pt advised to take Tylenol 500mg q 6hrs prn, increase oral hydration, and follow up with urologist. Levofloxacin administered without incident. [facility] sends script to pt's pharmacy for Levofloxacin and Pyridium. Red flags discussed. Pt has no further questions. .................... .................... .................... .................... .................... .................... .................... . Disposition: Fulfilled Michelle Sharif MD [address] [facility],[address], [place], [phone], [employer] [facility] [employer] 05/20/2022 14:33:50
== END 2025-01-02 10:39 | disposition home or self-care (01) ==
LOC: HO.HUSH 09:52
PROVIDERS: Visit Provider Urology
DX: R31.0 Gross hematuria (principal)

== ENCOUNTER 2025-02-12 12:42 | Outpatient (AMB) | payer OTHER, SELFPAY ==
--- OUTSIDE RECORDS SUMMARY | 2025-02-12 12:45 | XMS_ITS | Clinical Summary ---
Author Organization [facility] Address [address] [place] [phone] Phone Care Team Providers Care Senior Data Quality Analyst Name Role Phone Unavailable Primary Care Provider Unavailabl e Social History Tobacco Use Types Packs/Day Years Used Date Smoking Tobacco: Never Assessed Education Answer Date Recorded Are you interested in more education? Not on wade e 10/22/2024 Are you concerned about learning? Not on file 10/22/2024 No 10/22/2024 No 10/22/2024 Digital Access Answer Date Recorded No 10/22/2024 No 10/22/2024 Reliable internet access at home? Not on file 10/22/2024 Device with a working camera? Not on file Sex and Gender Information Value Date Recorded Sex Assigned at Not on file Legal Sex Male 9:44 AM EDT Gender Identity Not on file Sexual Orientation Not on file Plan of Treatment Not on file Medical Devices Not on file Insurance [facility] MEDICARE REPLACEMENT [employer] [place] [id number] [place] [address] [place] [place] [address] MEDICARE REPLACEMENT [facility] MEDICARE REPLACEMENT Additional Source Comments The information contained in this document represents components of the legal health record. It is not the complete legal health record.[facility]
--- OUTSIDE RECORDS SUMMARY | 2025-02-12 12:45 | XMS_ITS | Encounter Summary ---
Author Organization [employer] Address [address] [facility] 7t [place] [address] Care Team Providers Care Benefits Advisor Name Role Phone Niki Ramos MD Primary Care Provide r Encounter Details Date Type Department Care Team (Late Contact Info) Description 02/19/2023 Orders Only [facility] CH[facility] MED & PEDS [address] [place] [address] Janelle Jones LPN Social History Tobacco Use [...] Care Team (Late st Contact Info) Description 02/22/2025 10:00 AM EDT Office Visit [facility] ADULT DENTAL [address] [place] [address] Sundeep Felipe DMD [address] [place] [address] 03/07/2025 10:00 AM EDT Office Visit [facility] MEDICINE [address] [place] [address] Niki Ramos MD [address] [place] [address] 03/15/2025 10:30 AM EDT Office Visit [facility] OPTOMETRY [address] [place], [place] [phone] Wilmer Madeline, OD [address] [place], [place] [phone] documented as of this encounter Visit Diagnoses Not on filedocumented in this encounter Additional Health Concerns Assessment Noted Time PHQ-9 Depression Total Score: 8 09/26/19 23 9:12 AM EDT documented as of this encounter Care Teams Benefits Advisor Relationship Specialty Start Date End Date Niki Ramos MD [address] [place], [place] [phone] PCP - General Family Medicine 03/24/18 [place] A 10/24/24 documented as of this encounter
[2025-02-12 13:28] VITALS: BP 127/72; PULSE 70; O2SAT 96; BMI 25.3
--- NOTE | 2025-02-12 13:28 | MHC.OFFVIS ---
Vital Signs 02/12/25 13:28 Height 5 ft 6 in Weight 157 lb BMI 25.3 BP 127/72 Blood Pressure Location Lt brachial Position Sitting Pulse 70 Pulse Source Pulse Oximeter Pulse Oximetry (%) 96 Oxygen Delivery Method Room Air Intake Visit Reasons: Shortness of breath Corsets Salesperson Required: Yes Corsets Salesperson Name: Janelle Sanderson Allergies oxycodone (From PERCOCET) Allergy (Unknown, Verified 02/12/25 13:32) HIVES HPI HPI Shortness of breath: Details: 74-year-old gentleman, former at least 30 pack-year smoker, quit 2010 now followed for severe to very severe COPD. Patient had his pulmonary function test that showed severe to very severe COPD in April of 2024. He has been using his BrezTri and albuterol MDI with worsening control of his symptoms. He denies recent exacerbations. He still gets intermittent dyspnea episodes associated with chest pressure. He is followed by Cardiology service. [facility] Medical History Vitamin D deficiency Hematuria PVD (peripheral vascular disease) Esophageal dysphagia BPH loc w urin obs/LUTS Asthma HTN (hypertension) Surgical History History of hand surgery Hx of colonoscopy History of surgery Hx of prostatectomy Family History Father No problems noted. Mother No problems noted. 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 Review of Systems Const Denies daytime sleepiness, Denies excessive sweating, Denies fatigue, Denies fever(s), Denies lethargy, Denies malaise, Denies night sweats, Denies snoring and Denies weight loss Eyes Denies blurry vision and Denies itchy eyes ENT Denies nasal congestion, Denies post nasal drip, Denies sinus pain, Denies sinus pressure and Denies other ( Thrush) Card Denies chest pain, Denies pedal edema, Denies dyspnea, Reports dyspnea on exertion, Denies orthopnea and Denies paroxysmal nocturnal dyspnea Resp Denies cough, Denies hemoptysis, Denies excessive phlegm production, Denies dyspnea, Reports dyspnea on exertion, Denies snoring and Denies wheezing GI Denies abdominal pain and Denies heartburn Musc Denies myalgias, Denies arthralgias and Denies joint swelling Skin/Breast Denies rash Neuro Denies memory loss and Denies seizure-like activity Psych Denies abnormal sleep pattern, Denies anxiety and Denies memory loss Endo Denies excessive sweating, Denies fatigue and Denies heat intolerance Amari/Lymph Denies easy bruising Aller/Immun Denies itchy eyes, Denies seasonal rhinorrhea and Denies wheezing Physical Exam Vital Signs: Last Vital Signs Pulse 70 02/12/25 13:28 BP 127/72 02/12/25 13:28 Pulse Ox 96 02/12/25 13:28 Oxygen Delivery Method Room Air 02/12/25 13:28 BMI result Body Mass Index 25.3 Const General: no acute distress and alert Nutritional Appearance: not obese Orientation/consciousness: Other orientation findings ( oriented) HEENT Head: Yes atraumatic Eyes General: appearance normal, both eyes and all related structures Sclerae: sclerae normal EOM: EOMs intact bilaterally Neck Neck: Yes supple Lymphatic: no lymphadenopathy noted Resp Effort & Inspection: normal respiratory effort and no use of accessory muscles Auscultation: clear to auscultation bilaterally Cardio Rate: regular rate Rhythm: regular rhythm Heart sounds: no gallops, no murmurs and no rubs Skin General skin exam: other ( warm) Extrem General: No clubbing, No cyanosis and No edema Assessment & Plan Assessment & Plan (1) COPD (chronic obstructive pulmonary disease): Code(s): J44.9 - Chronic obstructive pulmonary disease, unspecified Category: Medical Plan: Severe to very severe COPD with suboptimal control on maximum inhaled metered-dose bronchodilators. Will add Brovana and theophylline. (2) Personal history of nicotine dependence: Code(s): Z87.891 - Personal history of nicotine dependence Category: Medical Plan: Results of lung cancer screening CT chest from June of 2024 reviewed, no worrisome nodules. Continue with yearly screening, next in June of 2025. Coding Level of Care Code Est Pt Level 4 (06717) Diagnoses COPD (chronic obstructive pulmonary disease) J44.9 Personal history of nicotine dependence Z87.891
== END 2025-02-12 13:52 | disposition home or self-care (01) ==
LOC: HO.HPS 12:43
PROVIDERS: PCP Internal Medicine; Visit Provider Internal Medicine Pulmonary Disease
DX: J44.9 Chronic obstructive pulmonary disease, unspecified (principal); Z87.891 Personal history of nicotine dependence
CPT/HCPCS: 99214

== ENCOUNTER → 2025-02-12 12:42 | Outpatient (BNVA) | payer OTHER, SELFPAY | PROVIDERS: PCP Internal Medicine; Visit Provider Internal Medicine Pulmonary Disease | DX: R06.02 Shortness of breath (principal); J44.9 Chronic obstructive pulmonary disease, unspecified; Z87.891 Personal history of nicotine dependence | CPT/HCPCS: 99212 ==

== ENCOUNTER 2025-03-07 10:36 | Outpatient (REF) | payer OTHER, SELFPAY ==
--- OUTSIDE RECORDS SUMMARY | 2025-03-07 10:00 | XMS_ITS | Encounter Summary ---
Author Organization [employer] Address [address] [facility] 7t [place] [address] Care Team Providers Care Jewelry Finisher Name Role Phone Niki Ramos MD Primary Care Provide r Encounter Details Date Type Department Care Team ([facility] st Contact Info) Description 03/07/2025 10:00 AM EDT Office Visit [facility] MEDICINE [address] [place] [address] Niki Ramos MD [address] [place] [address] Essential hypertension (Primary Dx); Chronic obstructive pulmonary disease, unspecified COPD type (CMS/HCC); Dietary counseling; Exercise counseling; Pruritus; Nonintractable episodic headache, unspecified headache type Social History Tobacco Use Types Packs/Day Years Used Date Smoking Tobacco: Former Cigarettes Passive Smoke Exposure: Past Smokeless Tobacco: Never Alcohol Use Standard Drinks/Week Comments Not Currently 0 (1 standard drink = 0.6 oz pur e alcohol) Depression Answer Date Recorded Patient Health Questionnaire-9 Score 0 12/05/2024 Patient Health Questionnaire-9 Score 0 12/05/2024 Last PHQ-9: Questionnaire Data Not on file 0 12/05/2024 Housing Stability Answer Date Recorded What is your housing situation today? I have liudmila rios 11/23/[address] you li ve. Do you have problems with any of the following? None of the above 11/23/2024 Food Insecurity Answer Date Recorded Within the past 12 months, y ou worried that your food would run out before you got money to buy more: Never True 11/23/2024 Within the past 12 months,th e food you bought just didn't last and you didn't have enough money to get more: Never True Transportation Answer Date Recorded In the past 12 months, has l ack of transportation kept you from medical appts, meetings, work or from getting things needed for daily living? No 11/23/2024 Utilities Answer Date Recorded In the past 12 months, has t he electric, gas, oil or water company threatened to shut off services in your home? No 11/23/2024 Depression Answer Date Recorded Patient Health Questionnaire-2 Score 0 12/05/2024 Internet Access Answer Date Recorded Internet Access Q1 Yes 11/23/2024 Internet Access Q2 Not on file 11/23/2024 Sex and Gender Information Value Date Recorded Sex Assigned at Male 05/04/2022 10:30 AM EDT Legal Sex Male 10:30 AM EDT Gender Identity Male 05/04/2022 10:30 AM EDT Sexual Orientation Straight 05/04/2022 10 :30 AM EDT documented as of this encounter Last Filed Vital Signs Vital Sign Reading Time Taken Comments Blood Pressure 122/76 03/07/2025 9:48 AM EDT Pulse 92 03/07/2025 9:48 AM EDT Temperature 36.4 C (97.6 F) 03/07/2025 9:48 AM EDT Respiratory Rate 18 03/07/2025 9:48 AM EDT Oxygen Saturation 95% 03/07/2025 9:48 AM EDT Inhaled Oxygen Concentration - - Weight 71.3 kg (157 lb 3.2 oz) 03/07/2025 9:48 A M EDT Height 160 cm (5' 3 ) 03/07/2025 9:48 AM EDT Body Mass Index 27.85 03/07/2025 9:48 AM EDT documented in this encounter Plan of Treatment Upcoming Encounters Date Type Department Care Team (Late st Contact Info) Description 03/15/2025 10:30 AM EDT Office Visit [facility] OPTOMETRY [address] [place] [address] Madeline Guillen, OD [address] [place] [address] 04/16/2025 11:30 AM EDT Telemedicine [facility] MEDICINE [address] [place] [address] Niki Ramos MD [address] [place] [address] Scheduled Orders Name Type Priority Associated Diagnoses Orde r Schedule Hepatic Function Panel Lab Routine Pruritus Expected: 03/07/2025 (Approximate), Expires: 03/07/2026 Basic Metabolic Panel Lab Routine Pruritus Expected: 03/07/2025 (Approximate), Expires: 03/07/2026 documented as of this encounter Procedures Procedure Name Priority Date/Time Associated Diagnosis Comments CBC WITH AUTO DIFFERENTIAL Routine 03/07/2025 10:40 AM EDT Pruritus documented in this encounter Results * (ABNORMAL) CBC auto differential (03/07/2025 10:40 AM EDT) White Blood Count 4.6(L) 4.8 - 10.8 X10*3/uL [facility] Red Blood Count 5.28 4.60 - 5.80 X10*6/uL [facility] Hemoglobin 14.7 14.0 - 18.0 g/dl [facility] Hematocrit 44.8 42.0 - 52.0 % [facility] Mean Corpuscular Volume 84.8 80.0 - 98.0 fL [facility] Mean Corpuscular Hemoglobin 27.8 27.0 - 33.0 pg [facility] Mean Corpuscular HGB Conc 32.8 31.0 - 36.0 g/dl [facility] Red Cell Distribution Width 12.4 11.0 - 16.0 % [facility] Platelet Count 180 160 - 400 X10*3/uL [facility] Mean Platelet Volume 10.3 9.4 - 12.4 fL [facility] Neutrophils Percent Auto 68.8 45 - 73 % [facility] Imm Gran Pct Auto 0.4 0.0 - 0.4 % [facility] Lymphocytes Percent Auto 21.4 20 - 40 % [facility] Monocytes Percent Auto 6.3 2 - 11 % [facility] Eosinophils Percent Auto 2.4 0 - 4 % [facility] Basophils Percent Auto 0.7 0 - 2 % [facility] NRBC Pct Auto 0.0 0.0 - 0.2 /100WBC [facility] Neutrophils Absolute Auto 3.2 2.0 - 8.3 x10*3/uL [facility] Imm Gran Abs Auto 0.02 0.00 - 0.03 X10*3/uL [facility] Lymphocytes Absolute Auto 1.0(L) 1.2 - 4.9 X10*3/uL [facility] Monocytes Absolute Auto 0.3 0.1 - 1.2 X10*3/uL [facility] Eosinophils Absolute Auto 0.1 0.0 - 0.4 X10*3/uL [facility] Basophils Absolute Auto 0.0 0.0 - 0.2 X10*3/uL [facility] NRBC Abs Auto 0.000 0.0 - 0.012 X10*3/uL [facility] Blood Venous blood specimen / Unknown 03/07/2025 10:40 AM EDT 03/07/2025 11:12 AM EDT us Niki Simmons MD LAB BLOOD ORDERABLES Final Result Performing Organization Address City/State/[facility] Co de Phone Number [facility] [address] [place] [phone] documented in this encounter Visit Diagnoses Diagnosis Essential hypertension- Primary Unspecified essential hypertension Chronic obstructive pulmonary disease, unspecified COPD type ([facility]) Dietary counseling Dietary surveillance and counseling Exercise counseling Pruritus Unspecified pruritic disorder Nonintractable episodic headache, unspecified headache type documented in this encounter Additional Health Concerns Assessment Noted Time PHQ-9 Depression Total Score: 0 12/06/19 25 9:01 AM EDT documented as of this encounter Care Teams Jewelry Finisher Relationship Specialty Start Date End Date Niki Ramos MD [address] [place] [id number] PCP - General Family Medicine [facility]18 [facility] documented as of this encounter
[2025-03-07 11:18] LABS: MANUAL DIFF FLAG NO
[2025-03-07 11:41] LABS: Hematocrit 44.8 % (42.0-52.0); Hemoglobin 14.7 g/dl (14.0-18.0); Imm Gran Abs Auto 0.02 X10*3/uL (0.00-0.03); Imm Gran Pct Auto 0.4 % (0.0-0.4); Lymphocytes Absolute Auto 1.0 X10*3/uL (1.2-4.9); Mean Corpuscular HGB Conc 32.8 g/dl (31.0-36.0); Mean Corpuscular Hemoglobin 27.8 pg (27.0-33.0); Mean Corpuscular Volume 84.8 fL (80.0-98.0); NRBC Abs Auto 0.000 X10*3/uL (0.0-0.012); NRBC Pct Auto 0.0 /100WBC (0.0-0.2); Platelet Count 180 X10*3/uL (160-400); Red Blood Count 5.28 X10*6/uL (4.60-5.80); White Blood Count 4.6 X10*3/uL (4.8-10.8)
--- OUTSIDE RECORDS SUMMARY | 2025-03-07 12:21 | XMS_ITS | Encounter Summary ---
Author Organization [employer] Address [address] [facility] 7t [place] [address] Care Team Providers Care Bowling Alley Refinisher Name Role Phone Niki Ramos MD Primary Care Provide r Encounter Details Date Type Department Care Team (Late st Contact Info) Description 09/03/2022 Abstract [facility] ADULT DENTAL [address] [place] [address] Sundeep Felipe, ROBERTO [address] [place] [address] Social History Tobacco Use Types Packs/Day Years [...] Description 03/15/2025 10:30 AM EDT Office Visit [facility] OPTOMETRY [address] [place] [address] Madeline Guillen, OD [address] [place] [address] 04/16/2025 11:30 AM EDT Telemedicine [facility] MEDICINE [address] [place] [address] Niki Ramos MD [address] [place], [place] [phone] documented as of this encounter Visit Diagnoses Not on filedocumented in this encounter Care Teams Bowling Alley Refinisher Relationship Specialty Start Date End Date Niki Ramos MD [address] [place] [address] PCP - General Family Medicine 03/24/18 Ken SANTOSA 10/24/24 documented as of this encounter
--- OUTSIDE RECORDS SUMMARY | 2025-03-07 12:21 | XMS_ITS | Encounter Summary ---
Author Organization [employer] Address [address] [facility] [address]t [place] [address] Care Team Providers Care Supervisor Waterworks Name Role Phone Niki Ramos MD Primary Care Provide r Encounter Details Date Type Department Care Team (Late Contact Info) Description 02/19/2023 Orders Only [facility] CHC MED & PEDS [address] [place] [address] Janelle Jones LPN Social History Tobacco Use [...] Description 03/15/2025 10:30 AM EDT Office Visit [facility] OPTOMETRY [address] [place] [address] Madeline Guillen, MERRILL [address] [place] [address] 04/16/2025 11:30 AM EDT Telemedicine [facility] MEDICINE [address] [place], [place] [phone] Niki Ramos MD [address] [place] [address] documented as of this encounter Visit Diagnoses Not on filedocumented in this encounter Additional Health Concerns Assessment Noted Time PHQ-9 Depression Total Score: 8 09/26/19 23 9:12 AM EDT documented as of this encounter Care Teams Supervisor Waterworks Relationship Specialty Start Date End Date Niki Ramos MD [address] [place] [address] PCP - General Family Medicine 03/24/18 Ken CASTANEDA 10/24/24 documented as of this encounter
--- OUTSIDE RECORDS SUMMARY | 2025-03-07 12:21 | XMS_ITS | Encounter Summary ---
Author Organization [facility] Address [address] [facility] [address]t [place] [address] Care Team Providers Care Rugby League Footballer Name Role Phone Niki Ramos MD Primary Care Provide r Encounter Details Date Type Department Care Team (Latest Contact Info) Description 04/09/2022 Abstract [facility] CONVERSIONS Dental, Provider, DDS Social History Tobacco [...] Description 03/15/2025 10:30 AM EDT Office Visit [facility] OPTOMETRY [address] [place] [address] Madeline Guillen, OD [address] [place] [address] 04/16/2025 11:30 AM EDT Telemedicine [facility] MEDICINE [address] [place] [address] Niki Ramos MD [address] [place] [address] documented as of this encounter Visit Diagnoses Not on filedocumented in this encounter Care Teams Rugby League Footballer Relationship Specialty Start Date End Date Niki Ramos MD [address] [place] [address] PCP - General Family Medicine 03/24/18 Ken CASTANEDA 10/24/24 documented as of this encounter
--- OUTSIDE RECORDS SUMMARY | 2025-03-07 12:21 | XMS_ITS | Clinical Summary ---
Author Organization [employer] Address [address] [facility] [address] [place] [address] Care Team Providers Care Mobile Lounge Driver Or Operator Name Role Phone Niki Ramos MD [...] for 5 days 30 each 023 Active Blood Pressure Monitoring (Blood Pressure Cuff) miscIndications: Essential hypertension 1 each Once daily. 1 each 024 Active Spacer/Aero-Hold ing Chambers (OptiChamber Lorraine) misc 1 each every 4 (four) hours if needed (asthma). 1 each Active albuterol (2.5 MG/3ML) 0.083% nebulizer solutionIndicati ons:Asthma in adult, mild intermittent, uncomplicated INHALE 1 AMPULE USING A NEBULIZER EVERY 4 HOURS NEEDED FOR WHEEZING 90 mL 3 024 Active EPINEPHrine (Epipen) 0.3 MG/0.3ML injection syringe [...] bedtime for itching. 30 tablet 025 Active omeprazole (PriLOSEC) [address] capsule TAKE 1 CAPSULE BY MOUTH ONCE DAILY BEFORE MEALS 90 capsule 2 025 Active atorvastatin (Lipitor) 40 MG tabletIndication s:Essential hypertension TAKE 1 TABLET BY MOUTH ONCE DAILY 30 tablet 11 025 Active Ketotifen Fumarate 0.035 % solutionIndicati ons:Allergic conjunctivitis of both eyes Administer 1 drop into affected eye(s) every 12 (twelve) hours if needed (apply if needed). 5 mL 025 Active cholecalciferol (Vitamin D-3) 25 MCG tabletIndication s:Vitamin D deficiency TAKE 1 TABLET BY MOUTH ONCE DAILY 90 tablet 1 025 Active montelukast (Singulair) 10 MG tabletIndication s:Asthma in adult, mild intermittent, uncomplicated TAKE 1 TABLET BY MOUTH AT BEDTIME 30 tablet 2 025 Active albuterol 108 (90 Base) MCG/ACT inhalerIndicatio ns:Mild intermittent asthma, unspecified whether complicated INHALE 2 PUFFS BY MOUTH EVERY 4 TO 6 HOURS NEEDED FOR WHEEZING OR SHORTNESS OF BREATH 18 g 3 025 Active hydroCHLOROthiaz jocelynn 12.5 MG tablet TAKE 1 TABLET BY MOUTH EVERY DAY 30 tablet 11 025 Active ammonium lactate (Lac-Hydrin) 12 % lotionIndication s:Pruritus Apply topically if needed for dry skin. 400 g 1 025 2025 Active amitriptyline (Elavil) 10 MG tabletIndication s:Nonintractable episodic headache, unspecified headache type Take 1 tablet (10 mg) by mouth at bedtime. 30 tablet 025 2024 Active ibuprofen 600 MG tabletIndication s:Nonintractable episodic headache, unspecified headache type Take 1 tablet (600 mg) by mouth every 8 (eight) hours if needed for mild pain. 30 tablet 025 2024 Active hydroCHLOROthiaz jocelynn (HYDRODiuril) 12.5 MG tablet Take 1 tablet (12.5 mg) by mouth Once per day. 30 tablet 11 024 2024 Discontinued Active Problems Problem Noted Date Diagnosed Date Chronic obstructive pulmonar y disease, unspecified COPD type 03/07/2025 Episodic headache 03/07/2025 Dysuria 12/05/2024 Assessment & Plan (12/05/2024 9:58 AM EDT): Possible UTI I will prescribe ciprofloxacin 500 mg every 12 hours for 7 days UA and culture done patient will be contacted with results Advised to contact back urology and report symptoms Diminished vision 12/05/2024 Prediabetes 12/05/2024 Assessment & Plan (12/05/2024 9:57 AM EDT): Counseling about healthy diet and exercise on today Prostate cancer 12/05/2024 Assessment & Plan (12/05/2024 9:58 AM EDT): Continue to follow-up with urology Allergic conjunctivitis of both eyes 12/05/2024 Assessment & Plan (12/05/2024 9:57 AM EDT): I will prescribe ketotifen eyedrops to use as needed Hematuria 05/01/2024 Assessment & Plan (05/02/2024 12:32 PM EDT): Pt with radha gross hematuria, no sig flank pain, no constitutional symptoms, Renal ultrasound ordered Urgent referral to urology , pt will outreach to urology as well as visit office tomorrow Culture pending, will treat if labs positive Blood work as ordered below Urgency or rapid work up reviewed with patient Colon cancer screening 07/12/2023 Assessment & Plan (09/01/2024 4:18 PM EST): Patient is scheduled for a colonoscopy Pruritus 07/12/2023 Assessment & Plan (09/01/2024 4:17 PM EST): Labs ordered today patient will be contacted with results I will prescribe for patient hydroxyzine at bedtime for the itchiness Assessment & Plan (07/12/2023 12:27 PM EST): I will refer him to land acquisition specialist Allergy 07/12/2023 Dyspnea on exertion 01/12/2023 [...] Patient will follow with psychiatrist and therapist 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 Initial [...] change. PLAN: 1. Follow up with [facility] [place]: Not recommended for follow-up 2. Patient goal is to continue OP therapy and explore additional coping mechanisms. 3. Behavioral Recommendations a. OP therapy b. Coping mechanisms- deep breathing C. 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 09/01/2024 Dilatation of aorta 09/17/2017 09/01/19 25 Encounters Date Type Department Care Team Description 03/07/2025 10:00 AM EDT Office Visit [facility] [address] [place] [phone] Niki Ramos MD Essential hypertension (Primary Dx); Chronic obstructive pulmonary disease, unspecified COPD type (CMS/HCC); Dietary counseling; Exercise counseling; Pruritus; Nonintractable episodic headache, unspecified headache type 03/07/2025 Travel 02/28/2025 Patient Outreach [facility] [address] [place] [phone] Niki Ramos MD Pre-visit Planning ([facility] screening completed on 11/23/2024) 02/22/2025 10:00 AM EDT Office Visit [facility] [address] [place] [address] Sundeep Felipe, DMD 02/08/2025 Refill [facility] [address] [place] [phone] Niki Ramos MD 01/27/2025 Refill [facility] [address] [place] [phone] Niki Ramos MD Mild intermittent asthma, unspecified whether complicated 01/24/2025 Refill [facility] [address] [place] [address] [phone] Niki Ramos MD Asthma in adult, mild intermittent, uncomplicated 01/17/2025 2:30 PM EDT Office Visit [facility] [address] [place] [address] Sundeep Felipe, DMD 01/01/2025 Refill [facility] [address] [place] [phone] Niki Ramos MD Vitamin D deficiency 12/12/2024 Telephone [facility] [address] [place] [phone] Niki Ramos MD SEP RECALL 12/05/2024 9:15 AM EDT Office Visit [facility] [address] [place] [phone] Niki Ramos MD Dysuria; Diminished vision; Prediabetes; Prostate cancer ([facility]); Allergic conjunctivitis of both eyes 12/05/2024 Travel from Last 3 Months Immunizations Immunization Administration [...] Mass Index 27.85 03/07/2025 9:48 AM EDT Plan of Treatment Upcoming Encounters Date Type Department Care Team (Late st Contact Info) Description 03/15/2025 10:30 AM EDT Office Visit [facility] [address] [place] [address] Madeline Guillen, OD [address] [place] [address] 04/16/2025 11:30 AM EDT Telemedicine [facility] [address] [place] [address] Niki Ramos MD [address] [place] [address] Health Maintenance Due Date Last Done Comments CT Colonography 1950 Dental Oral Exam 1950 Dental Prophylaxis 1950 Dental X-Ray: Bitewings 1950 Dental X-Ray: Full Mouth 1950 FIT DNA/Cologuard 1950 FIT 1950 FOBT 1950 Sigmoidoscopy 1950 RSV Patients and Patients Aged 60 years or older (1 - Risk 60-74 years 1-dose series) 2010 Zoster Vaccines (2 of 3) 10/07/2016 08/12/2016 Colonoscopy 03/07/2023 03/07/2020 Colorectal Cancer Screening 03/07/2023 COVID-19 Vaccine ( season) 2025 04/26/2024, 04/16/2022, 06/06/2021, Additional history exists Influenza Vaccine (#1) 2025 , 03/27/2022, 04/29/2021, Additional history exists Diabetes: Hemoglobin A1C 09/04/2025 025, 10/04/2023, 09/29/2022, Additional history exists SDOH Screening 11/23/2025 11/23/2024 Depression Screening 12/05/2025 12/05/2024, 12/06/19 Alcohol/Substance Use Screening 03/07/2026 03/07/2025 Tobacco Screening 03/07/2026 03/07/2025 Lipid Panel 09/04/2029 09/04/2024, 04/0 07/2023, 09/29/2022, Additional history exists DTaP/Tdap/Td Vaccines (3 - Td or Tdap) 10/17/2034 10/17/2024, 08/12/2016 Hepatitis B Vaccines Completed 06/05/2021, 10/26/2017, 09/17/2017 Pneumococcal Vaccine: 50+ Years Completed 06/05/2021, 08/12/2016 Hepatitis C Screening Completed 09/04/2024, 023 HIB [...] DIFFERENTIAL Routine 03/07/2025 10:40 AM EDT Pruritus CASE PRESENTATION, DETAILED AND EXTENSIVE TREATMENT PLANNING Routine 02/22/2025 10:00 AM EDT LIMITED ORAL EVALUATION - PROBLEM FOCUSED Routine 02/22/2025 10:00 AM EDT DENTURE FOLLOWUP Routine 01/17/2025 2:[address] ABDOMEN PELVIS WO CONTRAST Routine 12/13/2024 10:15 AM EDT POCT URINALYSIS DIPSTICK Routine 12/05/2024 9:49 AM EDT Dysuria CULTURE, URINE, ROUTINE Routine 12/05/2024 9:40 AM EDT Dysuria POCT GLUCOSE Routine 12/05/2024 9:39 AM EDT Prediabetes HEPATITIS C AB W/REFL TO HCV RNA, QN, PCR Routine 09/04/2024 7:59 AM EST Pruritus HEMOGLOBIN A1C Routine 09/04/2024 7:59 AM EST Pruritus LIPID PANEL, STANDARD Routine 09/04/2024 7:59 AM EST Pruritus HM COLONOSCOPY Routine 03/07/2020 from Last 3 Months or Most Recently Relevant to Health Maintenance Results * (ABNORMAL) CBC auto differential (03/07/2025 10:40 AM EDT) White Blood Count 4.6(L) 4.8 - 10.8 X10*3/uL [facility] Red Blood Count 5.28 4.60 - 5.80 X10*6/uL [facility] Hemoglobin 14.7 14.0 - 18.0 g/dl [facility] Hematocrit 44.8 42.0 - 52.0 % [facility] Mean Corpuscular Volume 84.8 80.0 - 98.0 fL [facility] Mean Corpuscular Hemoglobin 27.8 27.0 - 33.0 pg [facility] Mean Corpuscular HGB Conc 32.8 31.0 - 36.0 g/dl [facility] Red Cell Distribution Width 12.4 11.0 - 16.0 % [facility] Platelet Count 180 160 - 400 X10*3/uL [facility] Mean Platelet Volume 10.3 9.4 - 12.4 fL [facility] Neutrophils Percent Auto 68.8 45 - 73 % [facility] Imm Gran Pct Auto 0.4 0.0 - 0.4 % [facility] Lymphocytes Percent Auto 21.4 20 - 40 % [facility] Monocytes Percent Auto 6.3 2 - 11 % [facility] Eosinophils Percent Auto 2.4 0 - 4 % [facility] Basophils Percent Auto 0.7 0 - 2 % [facility] NRBC Pct Auto 0.0 0.0 - 0.2 /100WBC [facility] Neutrophils Absolute Auto 3.2 2.0 - 8.3 x10*3/uL [facility] Imm Gran Abs Auto 0.02 0.00 - 0.03 X10*3/uL [facility] Lymphocytes Absolute Auto 1.0(L) 1.2 - 4.9 X10*3/uL [facility] Monocytes Absolute Auto 0.3 0.1 - 1.2 X10*3/uL [facility] Eosinophils Absolute Auto 0.1 0.0 - 0.4 X10*3/uL [facility] Basophils Absolute Auto 0.0 0.0 - 0.2 X10*3/uL [facility] NRBC Abs Auto 0.000 0.0 - 0.012 X10*3/uL [facility] Blood Venous blood specimen / Unknown 03/07/2025 10:40 AM EDT 03/07/2025 11:12 AM EDT us Niki Simmons MD LAB BLOOD ORDERABLES Final Result [facility] [address] [place] [address] [phone] * CT Abdomen Pelvis w/o Contrast (12/13/2024 10:15 AM EDT) Anatomical Region Laterality Modality Body, Pelvis, Abdomen Computed T omography 12/13/2024 10:1 5 AM EDT Narrative 12/13/2024 12:07 PM EDT [address] [address] [address] Scan Report Signed Patient: Jayesh Che MR#: [id number] 6 : 1950 Acct:[id number] Age/Sex: 74 / M ADM Date: 12/13/24 Loc: HO.ED Attending Dr: Ordering Physician: Jeri Box DO Date of Service: 12/13/24 Procedure(s): CT abdomen pelvis wo IV con Accession Number(s): [id number] cc: Niki Ramos MD; Jeri oBx DO Report Number: [id number]: Total DLP = 0.00 mGy-cm EXAMINATION: CT ABDOMEN PELVIS WITHOUT IV CONTRAST HISTORY: R flank pain COMPARISON: Comparison is made with the prior examination dated 01/04/2023. TECHNIQUE: CT scan of the abdomen and pelvis was performed without contrast using standard departmental protocol. Coronal and sagittal reformatted images were generated and reviewed. Oral contrast material was not administered per department protocol. This CT exam was performed with one or more of the following dose reduction techniques: automated exposure control, adjustment of the mA and/or kV according to patient size, use of iterative reconstruction technique. DLP: 350 mGy-cm FINDINGS: LOWER CHEST: There are emphysematous changes at the lung bases. The visualized lung bases are clear. There is no pleural effusion. CARDIOVASCULATURE: The heart is normal in size. There is no pericardial effusion. LIVER: The liver is normal in size and contour. The liver has an unremarkable unenhanced appearance. GALLBLADDER / BILE DUCTS: The gallbladder is unremarkable. There is no intra or extrahepatic biliary ductal dilatation. SPLEEN: The spleen is normal in size and has an unremarkable unenhanced appearance. PANCREAS: The pancreas has an unremarkable unenhanced appearance. ADRENAL GLANDS: Unremarkable. KIDNEYS/RETROPERITONEUM: There is a 3 mm cortical calcification at the lower pole of the right kidney. Multiple nonobstructing left renal calculi are noted measuring up to 3 mm in size.. There is no hydronephrosis or hydroureter. No ureteral calculi are identified. There is a 1.8 cm cyst in the interpolar region of the right kidney. LYMPH NODES: No retroperitoneal lymphadenopathy is identified in the abdomen or pelvis. VASCULATURE: The abdominal aorta is normal in caliber. 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 MESENTERY/PERITONEUM: No free fluid. No masses. There is no free intraperitoneal gas. STOMACH: The stomach is collapsed, limiting evaluation. SMALL BOWEL: The small bowel is normal in caliber. COLON: There is a large amount of stool throughout the colon. APPENDIX: Normal. URINARY BLADDER/PELVIC ORGANS: There is a 4.7 x 2.7 x 3.8 cm heterogeneous rounded hyperdense mass in the dependent portion of the urinary bladder. This could represent blood clot or tumor. The prostate is enlarged. BONES / SOFT TISSUES: There is degenerative disc disease of the spine. CT/CT abdomen pelvis wo IV con IMPRESSION: 1. 4.7 x 2.7 x 3.8 cm rounded hyperdense mass in the urinary bladder which may represent blood clot or tumor. Cystoscopy is recommended. 2. Bilateral nephrolithiasis as described, without evidence of ureteral obstruction. 3. Large amount of stool throughout the colon. 4. 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 Electronically signed by: Serg Stevenson MD 12/13/2024 12:04 PM EDT Dictated By: Serg Stevenson MD Signed By: <Electronically signed by Serg Stevenson MD in OV> 12/13/24 1204 DD/ 1015 TD/TT: 12/13/24 1122 Lock Assembler: Procedure Note Donotuseinterpreter, Image - 12/13/[address] [address] [address] Scan Report Signed Patient: Luis Che#: [id number] 6 : 1950Acct:[id number] Age/Sex: 74 / MADM Date: 12/13/24 Loc: HO.ED Attending Dr: Ordering Physician: Jeri Box DO Date of Service: 12/13/24 Procedure(s): CT abdomen pelvis wo IV con Accession Number(s): [id number] cc: Niki Ramos MD; Jeri Box DO Report Number: [id number]: Total DLP = 0.00 mGy-cm EXAMINATION: CT ABDOMEN PELVIS WITHOUT IV CONTRAST HISTORY: R flank pain COMPARISON: Comparison is made with the prior examination dated 01/04/2023. TECHNIQUE: CT scan of the abdomen and pelvis was performed without contrast using standard departmental protocol. Coronal and sagittal reformatted images were generated and reviewed. Oral contrast material was not administered per department protocol. This CT exam was performed with one or more of the following dose reduction techniques: automated exposure control, adjustment of the mA and/or kV according to patient size, use of iterative reconstruction technique. DLP: 350 mGy-cm FINDINGS: LOWER CHEST: There are emphysematous changes at the lung bases. The visualized lung bases are clear. There is no pleural effusion. CARDIOVASCULATURE: The heart is normal in size. There is no pericardial effusion. LIVER: The liver is normal in size and contour. The liver has an unremarkable unenhanced appearance. GALLBLADDER / BILE DUCTS: The gallbladder is unremarkable. There is no intra or extrahepatic biliary ductal dilatation. SPLEEN: The spleen is normal in size and has an unremarkable unenhanced appearance. PANCREAS: The pancreas has an unremarkable unenhanced appearance. ADRENAL GLANDS: Unremarkable. KIDNEYS/RETROPERITONEUM: There is a 3 mm cortical calcification at the lower pole of the right kidney. Multiple nonobstructing left renal calculi are noted measuring up to 3 mm in size.. There is no hydronephrosis or hydroureter. No ureteral calculi are identified. There is a 1.8 cm cyst in the interpolar region of the right kidney. LYMPH NODES: No retroperitoneal lymphadenopathy is identified in the abdomen or pelvis. VASCULATURE: The abdominal aorta is normal in caliber. 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 MESENTERY/PERITONEUM: No free fluid. No masses. There is no free intraperitoneal gas. STOMACH: The stomach is collapsed, limiting evaluation. SMALL BOWEL: The small bowel is normal in caliber. COLON: There is a large amount of stool throughout the colon. APPENDIX: Normal. URINARY BLADDER/PELVIC ORGANS: There is a 4.7 x 2.7 x 3.8 cm heterogeneous rounded hyperdense mass in the dependent portion of the urinary bladder. This could represent blood clot or tumor. The prostate is enlarged. BONES / SOFT TISSUES: There is degenerative disc disease of the spine. CT/CT abdomen pelvis wo IV con IMPRESSION: 1. 4.7 x 2.7 x 3.8 cm rounded hyperdense mass in the urinary bladder which may represent blood clot or tumor. Cystoscopy is recommended. 2. Bilateral nephrolithiasis as described, without evidence of ureteral obstruction. 3. Large amount of stool throughout the colon. 4. 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 Electronically signed by: Serg Stevenson MD 12/13/2024 12:04 PM EDT RP Dictated By: Serg Stevenson MD Signed By: <Electronically signed by Serg Stevenson MD in OV> 12/13/24 1204 DD/ 1015 TD/TT: 12/13/24 1122 Lock Assembler: [facility] External Provider IMG CT PROCEDURES Final Result * (ABNORMAL) POCT Urinalysis (12/05/2024 9:49 AM EDT) Color, UA Red Clarity, UA Turbid Glucose, UA Negative Bilirubin, UA Negative Ketones, UA Negative Spec Grav, UA 1.020 Blood, UA Positive(A) Negative, None Detected Comment:LARGE pH, UA 6.0 Protein, UA Trace Comment:100mg Urobilinogen, UA 1.0 Leukocytes, UA Moderate(A) Negative, Rare, Trace Nitrite, UA Negative Negative, None Detected Appearance, UA red QC Media Lot # [id number] Lot# Expiration Date Urine 12/05/2024 9:49 AM EDT Niki Simmons MD POINT OF CARE TEST EN TER/EDIT ORDERABLES Final Result * Culture, Urine, Routine (12/05/2024 9:40 AM EDT) Urine Urine specimen obtained by clean catch procedure / Unknown 12/05/2024 9:40 AM EDT 12/05/2024 12:53 PM EDT Comment:UACC Narrative [facility] - 12/06/2024 9:36 AM EDT Urine Culture No growth. Specimen Source: Urine clean catch Niki Simmons MD LAB MICROBIOLOGY - GE NERAL ORDERABLES Final Result Performing Organization Address City/[facility]/ZIP Co de Phone Number [facility] [address] [place] [phone] * POCT Glucose (12/05/2024 9:39 AM EDT) Glucose Blood, POC 97 60 - 200 mg/dL QC Media Lot # [id number] Lot# Expiration Date Blood Capillary blood specimen / Unknown 12/05/2024 9:39 AM EDT Niki Simmons MD POINT OF CARE TEST EN TER/EDIT ORDERABLES Final Result * Hepatitis C Antibody with Reflex to HCV, RNA, Quantitative, Real-Time PCR (09/04/2024 7:59 AM EST) Hepatitis C Antibody Nonreactive Nonreactive [facility] Comment:Antibodies to HCV no t detected; does not exclude early acuteHCV infection. Blood Venous blood specimen / Unknown 09/04/2024 7:59 AM EST 09/04/2024 11:36 AM EST Niki Simmons MD LAB BLOOD ORDERABLES Final Result Performing Organization Address City/[facility]/ZIP Co de Phone Number [facility] [address] [place] [phone] * Hemoglobin A1c (09/04/2024 7:59 AM EST) Hemoglobin A1c 5.7 <6.0 % [facility] Comment:Hemoglobin A1C Refer ence Range Adults: 4.8 - 6.0 % Non diabetic: < 6.0 % Goal: < 7.0 %Additional Action Suggested: > 8.0 %Note: Hemoglobin A1c results are invalid for patients with abnormal amounts of HbF. Blood transfusions may impact the HbA1c concentration in the patient sample. Estimated Average Glucose 117 mg/dL [facility] Comment:eAG = Estimated ave rage glucose which is %A1C expressed asaverage glucose, using the formula of the [id number] Glucose study (ADAG), Diabetes Care, Vol.31,#8,Feb. 2007 Blood Venous blood specimen / Unknown 09/04/2024 7:59 AM EST 09/04/2024 11:36 AM EST us Niki Simmons MD LAB BLOOD ORDERABLES Final Result [facility] [address] [place] [address] [phone] * Lipid Panel, Standard (09/04/2024 7:59 AM EST) Triglycerides 74 <150 mg/dL [facility] Comment:Desirable Triglyceri de: less than 150 mg/dLBorderline High Triglyceride 150-199 mg/dLHigh Triglyceride: 200-499 mg/dLVery High Triglyceride: greater than or equal to 5OO mg/dL Cholesterol 106 <200 mg/dL [facility] Comment:Desirable Cholestero l: less than 200 mg/dLBorderline High Cholesterol: 200-239 mg/dLHigh Cholesterol: greater than 239 mg/dL LDL Cholesterol Calculated 47 <100 mg/dL [facility] Comment:Desirable LDL: less than 100 mg/dLNear Optimal/Above Optimal LDL: 110- 129 mg/dLBorderline High LDL: 130-159 mg/dLHigh LDL: 160-189 mg/dLVery High LDL: greater than or equal to 190 mg/dL HDL Cholesterol 45 >40 mg/dL [facility] Comment:Desirable HDL: great er than 40 mg/dL Note: This HDL assay may give artificially low results in patients with liver disease. Blood Venous blood specimen / Unknown 09/04/2024 7:59 AM EST 09/04/2024 11:36 AM EST us Niki Simmons MD LAB BLOOD ORDERABLES Final Result [facility] [address] [place] [phone] * Colonoscopy (03/07/2020) us Historical Provider HEALTH MAINTENANCE Final Result from Last 3 Months or Most Recently Relevant to Health Maintenance Insurance [facility] OPTIONS (O D-SNP) D[facility]AL [facility] - [facility] Care Teams Mobile Lounge Driver Or Operator Relationship Specialty Start Date End Date Niki Ramos MD [address] [place] [address] PCP - General Family Medicine 03/24/18 Ken A 10/24/24
--- OUTSIDE RECORDS SUMMARY | 2025-03-07 12:21 | XMS_ITS | Encounter Summary ---
Author Organization [employer] Address 75 [facility] 7t [place] [address] Care Team Providers Care It Application Development Manager Name Role Phone Niki Ramos MD Primary Care Provide r Encounter Details Date Type Department Care Team (Late st Contact Info) Description 06/05/2022 Abstract [facility] ADULT DENTAL [address] [place] [address] Sundeep Felipe DMD [address] [place] [address] Social History Tobacco Use Types Packs/Day Years [...] Office Visit [facility] OPTOMETRY [address] [place] [address] TarMadeline day, OD [address] [place] [address] 04/16/2025 11:30 AM EDT Telemedicine [facility] MEDICINE [address] [place] [address] Niki Ramos MD [address] [place] [address] documented as of this encounter Visit Diagnoses Not on filedocumented in this encounter Care Teams It Application Development Manager Relationship Specialty Start Date End Date Niki Ramos MD 230 [place] [address] PCP - General Family Medicine 03/24/18 [place] Juan M 10/24/24 documented as of this encounter
--- OUTSIDE RECORDS SUMMARY | 2025-03-07 12:21 | XMS_ITS | Encounter Summary ---
Author Organization [employer] [facility] Address 75 [facility] 7t [place] [address] Care Team Providers Care Bone Drier Operator Name Role Phone Niki Ramos MD Primary Care Provide r Encounter Details Date Type Department Care Team (Late Contact Info) Description 03/12/2023 Orders Only [facility] MEDICINE [address] [place] [address] ProviderYao MD Social History Tobacco Use Types [...] Department Care Team (Late Contact Info) Description 03/15/2025 10:30 AM EDT Office Visit [facility] OPTOMETRY [address] [place] [address] Madeline Guillen OD [address] [place] [address] 04/16/2025 11:30 AM EDT Telemedicine [facility] MEDICINE [address] [place] [address] Niki Ramos MD 230 [place] [address] documented as of this encounter Procedures Procedure [...] documented as of this encounter Care Teams Bone Drier Operator Relationship Specialty Start Date End Date Niki Ramos MD [address] [place] [address] PCP - General Family Medicine 03/24/18 Ken CASTANEDA 10/24/24 documented as of this encounter
--- OUTSIDE RECORDS SUMMARY | 2025-03-07 12:21 | XMS_ITS | Encounter Summary ---
Author Organization [facility] Address 75 [facility] 7t [place] [address] Care Team Providers Care Prevocational/Rehabilitation Counselor Name Role Phone Niki Ramos MD Primary Care Provide r Encounter Details Date Type Department Care Team (Late st Contact Info) Description 05/27/2022 Abstract [facility] ADULT DENTAL [address] [place] [address] Dental, Provider, DDS Social History Tobacco Use [...] Description 03/15/2025 10:30 AM EDT Office Visit [facility] OPTOMETRY [address] [place] [address] Madeline Guillen, OD [address] [place] [address] 04/16/2025 11:30 AM EDT Telemedicine [facility] MEDICINE [address] [place] [address] Niki Ramos MD [address] [place] [address] documented as of this encounter Procedures Procedure [...] on filedocumented in this encounter Care Teams Prevocational/Rehabilitation Counselor Relationship Specialty Start Date End Date Niki Ramos MD [address] [place] [address] PCP - General Family Medicine 03/24/18 Ken CASTANEDA 10/24/24 documented as of this encounter
--- OUTSIDE RECORDS SUMMARY | 2025-03-07 12:21 | XMS_ITS | Encounter Summary ---
Author Organization [facility] Address 75 [facility] 7t [place] [address] Care Team Providers Care Medicare Biller Name Role Phone Niki Ramos MD Primary Care Provide r Encounter Details Date Type Department Care Team (Latest Contact Info) Description 11/08/2018 Abstract [facility] CONVERSIONS Dental, Provider, DDS Social History [...] Care Team ( st Contact Info) Description 03/15/2025 10:30 AM EDT Office Visit [facility] OPTOMETRY [address] [place] [address] Madeline Guillen, OD 267 [place] [address] 04/16/2025 11:30 AM EDT Telemedicine [facility] MEDICINE 230 [place] [address] Niki Ramos MD 230 [place] [address] documented as of this encounter Visit Diagnoses Not on filedocumented in this encounter Care Teams Medicare Biller Relationship Specialty Start Date End Date Niki Ramos MD [address] [place] [address] PCP - General Family Medicine 03/24/18 Ken CASTANEDA 10/24/24 documented as of this encounter
--- OUTSIDE RECORDS SUMMARY | 2025-03-07 12:21 | XMS_ITS | Clinical Summary ---
Author Organization [facility] Address [address] [place] [address] Phone Care Team Providers Care Gum Sprayer Name Role Phone Unavailable Primary Care Provider Unavailabl e Social History Tobacco Use Types Packs/Day Years Used Date Smoking Tobacco: Never Assessed Education Answer Date Recorded Are you interested in more education? Not on waed e 10/22/2024 Are you concerned about learning? [...] file Medical Devices Not on file Insurance [facility] MEDICARE [place]PLAC[place] [place] [address] [address] [place] [place] [address] MEDICARE REPLACEMENT [facility] MEDICARE REPLACEMENT Additional Source Comments The information contained in this document represents components of the legal health record. It is not the complete legal health record.[facility]
--- OUTSIDE RECORDS SUMMARY | 2025-03-07 12:22 | XMS_ITS | Encounter Summary ---
Author Organization [employer] Address 75 [facility] 7t [place] [address] Care Team Providers Care Director Blood Bank Name Role Phone Niki Ramos MD Primary Care Provide r Encounter Details Date Type Department Care Team (Late Contact Info) Description 06/22/2022 Abstract [facility] ADULT DENTAL [address] [place] [address] Claudine Sachin, DMD [address] [place] [address] Social History Tobacco Use Types Packs/Day Years [...] Description 03/15/2025 10:30 AM EDT Office Visit [facility] OPTOMETRY [address] [place] [address] Madeline Guillen, OD [address] [place] [address] 04/16/2025 11:30 AM EDT Telemedicine [facility] MEDICINE [address] [place] [address] Niki Ramos MD 230 [place], [place] [phone] documented as of this encounter Visit Diagnoses Not on filedocumented in this encounter Care Teams Director Blood Bank Relationship Specialty Start Date End Date Niki Ramos MD 230 [place] [address] PCP - General Family Medicine 03/24/18 [facility] 10/24/24 documented as of this encounter
--- OUTSIDE RECORDS SUMMARY | 2025-03-07 12:22 | XMS_ITS | Encounter Summary ---
Author Organization [employer] Address 75 [facility] 7t [place] [address] Care Team Providers Care Measuring Machine Tender Name Role Phone Niki Ramos MD Primary Care Provide r Encounter Details Date Type Department Care Team (Late st Contact Info) Description 07/30/2022 Abstract [facility] ADULT DENTAL 230 [place] [address] Sundeep Felipe, ROBERTO 230 [place] [address] Social History Tobacco Use Types Packs/Day Years [...] Description 03/15/2025 10:30 AM EDT Office Visit [facility] OPTOMETRY [address] [place] [address] Madeline Guillen, OD 267 [place] [address] 04/16/2025 11:30 AM EDT Telemedicine [facility] MEDICINE 230 [place] [address] Niki Ramos MD 230 [place], [place] [phone] documented as of this encounter Visit Diagnoses Not on filedocumented in this encounter Care Teams Measuring Machine Tender Relationship Specialty Start Date End Date Niki Ramos MD 230 [place] [address] PCP - General Family Medicine 03/24/18 [place] 10/24/24 documented as of this encounter
--- OUTSIDE RECORDS SUMMARY | 2025-03-07 12:22 | XMS_ITS | Encounter Summary ---
Author Organization [employer] Address 75 [facility] 7t [place] [address] Care Team Providers Care Manager Molecular Name Role Phone Niki Ramos MD Primary Care Provide r Encounter Details Date Type Department Care Team (Latest Contact Info) Description 03/07/2025 Travel Social History Tobacco Use Types Packs/Day [...] Description 03/15/2025 10:30 AM EDT Office Visit [facility] OPTOMETRY [address] [place] [address] Madeline Guillen, OD [address] [place] [address] 04/16/2025 11:30 AM EDT Telemedicine [facility] MEDICINE 230 [place] [address] Niki Ramos MD 230 [place] [address] documented as of this encounter Visit Diagnoses Not on filedocumented in this encounter Additional Health Concerns Assessment Noted Time PHQ-9 Depression Total Score: 0 12/06/19 9:01 AM EDT documented as of this encounter Care Teams Manager Molecular Relationship Specialty Start Date End Date Niki Ramos MD 230 [place] [address] PCP - General Family Medicine 03/24/18 [place] 10/24/24 documented as of this encounter
[2025-03-07 12:30] LABS: Alanine Aminotransferase 29 U/L (0-40); Albumin Level 4.8 g/dL (3.5-5.0); Alkaline Phosphatase 57 U/L (39-117); Anion Gap 11 (12-20); Aspartate Amino Transferase 29 U/L (5-37); Blood Urea Nitrogen 22 mg/dL (9-16); Calcium 9.4 mg/dL (8.4-10.2); Carbon Dioxide 30 mmol/L (22-29); Chloride 105 mmol/L (96-108); Estimated Glomerular Filt Rate > 60; Potassium 3.9 mmol/L (3.3-5.1); Sodium 142 mmol/L (135-145); Total Protein 7.2 g/dL (6.5-8.0)
[2025-03-07 12:51] LABS: PSA,Total (Free>4and<10) 8.60 ng/mL (0.00-4.00)
[2025-03-08 12:39] LABS: Free Prostate Spec Ag 0.6 ng/mL; Percent Free Prostate Spec Ag 8 % (calc) (>25)
== END 2025-03-07 10:37 | disposition home or self-care (01) ==
LOC: HO.HHCL 10:36
PROVIDERS: Urology; PCP Internal Medicine; Visit Provider Internal Medicine
DX: Z12.5 Encounter for screening for malignant neoplasm of prostate (principal); L29.9 Pruritus, unspecified; C61 Malignant neoplasm of prostate; Z19.1 Hormone sensitive malignancy status
CPT/HCPCS: 36415; 80048; 80076; 84153; 84154; 85025

== ENCOUNTER 2025-04-03 12:49 | Outpatient (AMB) | payer OTHER, SELFPAY ==
--- NOTE | 2025-04-03 13:01 | MHC.OFFVIS ---
Intake Visit Reasons: 4m/PSA/UA/PVR Intake Note: Patient is present for 4 mo follow up Urology Medication: FINASTERIDE, Tranexamic Antibiotic Allergy: NONE Blood Thinner: NONE Labs done 03/07/25: Fr PSA 0.6, %Fr PSA 8, Total PSA 8.60 PVR: 55 mls Pattern Checker Required: Yes Information Interpreted: non-clinical & clinical Accompanied by: Self / Same As Patient Allergies oxycodone (From PERCOCET) Allergy (Unknown, Verified 04/03/25 13:10) HIVES HPI Comments Details: Jayesh is a pleasant male. He is a patient of Dr. Simmons. He is seen for the following urologic conditions - lower urinary tract symptoms - nephrolithiasis Kinyarwanda translation provided by qualified medical payment poster Four month follow-up from [employer] laser Significant improvement in voiding parameters. Nocturia x1. Effective emptying. PSA 7.18% free JONO 3+ soft PSA 03/29 7,1 8% Continue finasteride Six-month follow-up repeat PSA Plan Prolaris Prostate Cancer Grade Group 1 Low Volume - 11/26 TRUS 75 g PT1c Grade group 1 PSA at diagnosis 10 Histologic type: Acinar adenocarcinoma Histologic grade: 3+3=6 [place] score: 3+3=6 Tumor quantitation: - Number cores positive: 2 - LMM 5%, RAL 10% - Total number of cores: 13 % of tissue involved: See above for details Periprostatic fat inv.: Not identified Seminal vesicle inv.: Not identified Perineural inv.: Not identified LVI: Not identified 05/28 MRI shows 2 lesions of interest. 82 cc. Right base lateral peripheral zone 1.7 cm PI-RADS 4. Left mid transition zone 3.9 cm PI-RADS 5 Lower urinary tract symptoms Here for follow-up visit for hematuria and lower urinary tract symptoms Current therapy terazosin 10 mg effective Prior therapy tamsulosin Prior procedures laser prostatectomy 2018 Cystoscopy 10/23 mild regrowth with high bladder lip - TURP defect, mild tightness PSA 05/27 11, 04/27 11.8 Bladder US 11/25 75gm Prior negative biopsy Nephrolithiasis Prior stone Imaging - 02/23 CT scan 1 mm stone - 02/25 renal ultrasound left kidney small stone, bilateral cysts PFSH Medical History Vitamin D deficiency Hematuria PVD (peripheral vascular disease) Esophageal dysphagia BPH loc w urin obs/LUTS Asthma HTN (hypertension) Surgical History History of hand surgery Hx of colonoscopy History of surgery Hx of prostatectomy Family History Father No problems noted. Mother No problems noted. 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 Review of Systems Const Denies chills and Denies fever(s) Card Reports no additional complaints and Denies syncope Resp Denies cough GI Denies abdominal pain and Denies heartburn Reports as per HPI and Denies change in libido Neuro Denies syncope Psych Denies change in libido Endo Denies change in libido Physical Exam Const General: cooperative, healthy appearing, comfortable and no acute distress Orientation/consciousness: patient oriented x3 HEENT Face and sinus: Yes normal facial exam Mouth: moist mucous membranes Neck Neck: Yes normal visual inspection, Yes full ROM and Yes trachea midline Chest Chest palpation & inspection: normal inspection of the chest Resp Effort & Inspection: normal respiratory effort, able to speak in complete sentences and no respiratory distress GI Inspection: Yes normal to inspection Back/Spine/Pelvis Cervical Spine: normal cervical lordosis Thoracic/Lumbar Spine: thoracic and lumbar spine normal to inspection Skin General skin exam: no rashes or lesions noted Neuro General: patient oriented x3, gait normal, tone normal and moves all extremities Extrem General: Yes normal to inspection and Yes capillary refill normal Assessment & Plan Assessment & Plan (1) BPH w urinary obs/LUTS: Comment: Laser prostatectomy 2019 Code(s): N40.1 - Benign prostatic hyperplasia with lower urinary tract symptoms; N13.8 - Other obstructive and reflux uropathy Category: Medical (2) Hormone sensitive prostate cancer: Code(s): C61 - Malignant neoplasm of prostate; Z19.1 - Hormone sensitive malignancy status Category: Medical Plan Six-month follow-up PSA Orders: Orders PSA,Total (Free>4and<10) 6 Months C61 - Malignant neoplasm of prostate, Z19.1 - Hormone sensitive malignancy status Medications: Refilled finasteride 5 mg PO DAILY 90 tabs 1RF 90 days N13.8 - Other obstructive and reflux uropathy, N40.1 - Benign prostatic hyperplasia with lower urinary tract symptoms, R33.9 - Retention of urine, unspecified Patient Instructions: This note is constructed using voice recognition software. While every effort has been made to ensure accuracy instructor adjunct pharmacy technician errors may have been included. Imaging studies, laboratory and physical exam results were discussed and reviewed in detail. No major barriers to patient understanding were identified. An opportunity to ask questions regarding the treatment plan was provided. All questions were answered. The patient expressed understanding and agreement with the above treatment plan. The patient is aware they should contact our office by phone for worsening of their current condition or the appearance of new urologic symptoms. Compliance is encouraged with any medications and followup testing that is ordered. It is a privilege to participate in the urologic care of your patient. If you have any questions or concerns regarding treatment for the above conditions, or other urologic issues, please do not hesitate to contact me. The office telephone contact is [phone]. Sincerely, Dr Gilles Whitley MD, BE [facility] - Urology Compassionate Specialist Care for the Genitourinary System Coding Level of Care Code Est Pt Level 3 (67022) Complex EM visit Add On G2211 Diagnoses BPH w urinary obs/LUTS N40.1; N13.8 Hormone sensitive prostate cancer C61; Z19.1
--- OUTSIDE RECORDS SUMMARY | 2025-04-03 13:55 | XMS_ITS | Encounter Summary ---
Author Organization [employer] Address 75 [facility] 7t [place] [address] Care Team Providers Care Electronics Department Manager Name Role Phone Niki Ramos MD Primary Care Provide r Encounter Details Date Type Department Care Team (Late st Contact Info) Description 06/05/2022 Abstract [facility] ADULT DENTAL [address] [place] [address] Sundeep Felipe DMD [address] [place] [address] Social History Tobacco Use Types Packs/Day Years [...] Care Team (Late st Contact Info) Description 04/16/2025 11:30 AM EDT Telemedicine [facility] MEDICINE [address] [place] [address] Niki Ramos MD 230 [place] [address] 06/15/2025 3:30 PM EST Office Visit [facility] OPTOMETRY [address] [place] [address] Madeline Guillen, OD [address] [place] [address] documented as of this encounter Visit Diagnoses Not on filedocumented in this encounter Care Teams Electronics Department Manager Relationship Specialty Start Date End Date Niki Ramos MD [address] [place] [address] PCP - General Family Medicine 03/24/18 [place] Juan M 10/24/24 documented as of this encounter
--- OUTSIDE RECORDS SUMMARY | 2025-04-03 13:55 | XMS_ITS | Encounter Summary ---
Author Organization [employer] Address 75 [facility] 7t [place] [address] Care Team Providers Care Acid Concentrator Name Role Phone Niki Ramos MD Primary Care Provide r Encounter Details Date Type Department Care Team (Latest Contact Info) Description 11/08/2018 Abstract [facility] CONVERSIONS Dental, Provider, DDS Social [...] Info) Description 04/16/2025 11:30 AM EDT Telemedicine [facility] MEDICINE [address] [place] [address] Niki Ramos MD [address] [place] [address] 06/15/2025 3:30 PM EST Office Visit [facility] OPTOMETRY [address] [place] [address] Madeline Guillen, OD [address] [place] [address] documented as of this encounter Visit Diagnoses Not on filedocumented in this encounter Care Teams Acid Concentrator Relationship Specialty Start Date End Date Niki Ramos MD [address] [place] [address] PCP - General Family Medicine 03/24/18 Ken CASTANEDA 10/24/24 documented as of this encounter
--- OUTSIDE RECORDS SUMMARY | 2025-04-03 13:55 | XMS_ITS | Encounter Summary ---
Author Organization [employer] [facility] Address 75 [facility] 7t [place] [address] Care Team Providers Care Licensed Certified Orthotist Name Role Phone Niki Ramos MD Primary Care Provide r Encounter Details Date Type Department Care Team (Late st Contact Info) Description 05/27/2022 Abstract [facility] ADULT DENTAL [address] [place] [address] Dental, Provider, DDS Social History Tobacco Use [...] Info) Description 04/16/2025 11:30 AM EDT Telemedicine [facility] MEDICINE [address] [place] [address] Niki Ramos MD [address] [place] [address] 06/15/2025 3:30 PM EST Office Visit [facility] OPTOMETRY [address] [place] [address] Madeline Guillen, MERRILL [address] [place] [address] documented as of this encounter Procedures Procedure [...] on filedocumented in this encounter Care Teams Licensed Certified Orthotist Relationship Specialty Start Date End Date Niki Ramos MD [address] [place] [address] PCP - General Family Medicine 03/24/18 Ken CASTANEDA 10/24/24 documented as of this encounter
--- OUTSIDE RECORDS SUMMARY | 2025-04-03 13:55 | XMS_ITS | Encounter Summary ---
Author Organization [employer] Address 75 [facility] 7t [place] [address] Care Team Providers Care Tank Farm Gauger Name Role Phone Niki Ramos MD Primary Care Provide r Encounter Details Date Type Department Care Team (Late st Contact Info) Description 07/30/2022 Abstract [facility] ADULT DENTAL [address] [place] [address] Sundeep Felipe DMD [address] [place] [address] Social History Tobacco Use Types Packs/Day Years [...] Info) Description 04/16/2025 11:30 AM EDT Telemedicine [facility] MEDICINE [address] [place] [address] Niki Ramos MD [address] [place] [address] 06/15/2025 3:30 PM EST Office Visit [facility] OPTOMETRY [address] [place] [address] Wilmer Madeline, OD [address] [place] [address] documented as of this encounter Visit Diagnoses Not on filedocumented in this encounter Care Teams Tank Farm Gauger Relationship Specialty Start Date End Date Niki Ramos MD [address] [place] [address] PCP - General Family Medicine 03[facility]18 [facility] documented as of this encounter
--- OUTSIDE RECORDS SUMMARY | 2025-04-03 13:55 | XMS_ITS | Encounter Summary ---
Author Organization [employer] Address 75 [facility] 7t [place] [address] Care Team Providers Care Long Term Name Role Phone Niki Ramos MD Primary Care Provide r Encounter Details Date Type Department Care Team (Late Contact Info) Description 06/22/2022 Abstract [facility] ADULT DENTAL [address] [place] [address] Sachin Chow, DMD [address] [place] [address] Social History Tobacco Use Types Packs/Day Years [...] Info) Description 04/16/2025 11:30 AM EDT Telemedicine [facility] MEDICINE [address] [place] [address] Niki Ramos MD [address] [place] [address] 06/15/2025 3:30 PM EST Office Visit [facility] OPTOMETRY [address] [place] [address] Avilashay Madeline, OD [address] [place] [address] documented as of this encounter Visit Diagnoses Not on filedocumented in this encounter Care Teams Long Term Relationship Specialty Start Date End Date Niki Ramos MD [address] [place] [address] PCP - General Family Medicine 03/24/18 [facility] documented as of this encounter
--- OUTSIDE RECORDS SUMMARY | 2025-04-03 13:55 | XMS_ITS | Clinical Summary ---
Author Organization [facility] Address [address] [place] [address] Phone Care Team Providers Care Animal Nutrition Teacher Name Role Phone Unavailable Primary Care Provider [...] file Medical Devices Not on file Insurance [facility] MEDICARE [place] [address] [place] [address] [place] [address] MEDICARE REPLACEMENT [facility] MEDICARE REPLACEMENT Additional Source Comments The information contained in this document represents components of the legal health record. It is not the complete legal health record.[facility]
--- OUTSIDE RECORDS SUMMARY | 2025-04-03 13:55 | XMS_ITS | Encounter Summary ---
Author Organization [employer] Address 75 [facility] 7t [place] [address] Care Team Providers Care Locomotive Lubricating Systems Clerk Name Role Phone Niki Ramos MD Primary Care Provide r Encounter Details Date Type Department Care Team (Late Contact Info) Description 02/19/2023 Orders Only [facility] MED & PEDS [address] [place] [address] Janelle Jones LPN Social History Tobacco Use [...] Info) Description 04/16/2025 11:30 AM EDT Telemedicine [facility] MEDICINE [address] [place] [address] Niki Ramos MD [address] [place] [address] 06/15/2025 3:30 PM EST Office Visit [facility] OPTOMETRY [address] [place], [place] [phone] Madeline Guillen, OD [address] [place] [address] documented as of this encounter Visit Diagnoses Not on filedocumented in this encounter Additional Health Concerns Assessment Noted Time PHQ-9 Depression Total Score: 8 09/26/19 23 9:12 AM EDT documented as of this encounter Care Teams Locomotive Lubricating Systems Clerk Relationship Specialty Start Date End Date Niki Ramos MD [address] [place] [address] PCP - General Family Medicine 03[facility]24[facility] documented as of this encounter
--- OUTSIDE RECORDS SUMMARY | 2025-04-03 13:55 | XMS_ITS | Encounter Summary ---
Author Organization [facility] Address [address] [facility] 7t [place] [address] Care Team Providers Care Digital Marketing Strategist Name Role Phone Niki Ramos MD Primary Care Provide r Encounter Details Date Type Department Care Team (Late Contact Info) Description 03/12/2023 Orders Only [facility] MEDICINE [address] [place] [address] ProviderYao MD Social History Tobacco Use Types [...] Department Care Team (Late Contact Info) Description 04/16/2025 11:30 AM EDT Telemedicine [facility] MEDICINE [address] [place] [address] Niki Ramos MD [address] [place] [address] 06/15/2025 3:30 PM EST Office Visit [facility] OPTOMETRY [address] [place], [place] [phone] Madeline Guillen, OD [address] [place] [address] documented as of this encounter Procedures Procedure [...] documented as of this encounter Care Teams Digital Marketing Strategist Relationship Specialty Start Date End Date Niki Ramos MD [address] [place] [phone] PCP - General Family Medicine 03/24/18 Ken Juan M 10/24/24 documented as of this encounter
--- OUTSIDE RECORDS SUMMARY | 2025-04-03 13:55 | XMS_ITS | Clinical Summary ---
Author Organization [employer] Address [address] [facility] 7t [place] [address] Care Team Providers Care Thermite Bomb Loader Name Role Phone Niki Ramos MD Primary Care Provide r Allergies Active Allergy Reactions Criticality Noted Date Comments Acetaminophen Unknown 10/26/2018 Acetaminophen-Codeine 05/27/2022 Oxycodone Unknown,Hives 10/26/2018 Medications * This document contains information [...] 5 days 30 each 06/29/20 23 Active Blood Pressure Monitoring (Blood Pressure Cuff) miscIndications:E ssential hypertension 1 each Once daily. 1 each 11/18/19 24 Active Spacer/Aero-Holdi ng Chambers (OptiChamber Lorraine) misc 1 each every 4 (four) hours if needed (asthma). 1 each 02/08/20 24 Active albuterol (2.5 MG/3ML) 0.083% nebulizer [...] for itching. 30 tablet 09/01/19 25 Active omeprazole (PriLOSEC) [address] capsule TAKE 1 CAPSULE BY MOUTH ONCE DAILY BEFORE MEALS 90 capsule 2 09/13/19 25 Active atorvastatin (Lipitor) 40 MG tabletIndications :Essential hypertension TAKE 1 TABLET BY MOUTH ONCE DAILY 30 tablet 11 11/23/19 25 Active Ketotifen Fumarate 0.035 % solutionIndicatio ns:Allergic conjunctivitis of both eyes Administer 1 drop into affected eye(s) every 12 (twelve) hours if needed (apply if needed). 5 mL 12/06/19 25 Active cholecalciferol (Vitamin D-3) 25 MCG tabletIndications :Vitamin D deficiency TAKE 1 TABLET BY MOUTH ONCE DAILY 90 tablet 1 01/03/20 25 Active montelukast (Singulair) 10 MG tabletIndications :Asthma in adult, mild intermittent, uncomplicated TAKE 1 TABLET BY MOUTH AT BEDTIME 30 tablet 2 01/26/20 25 Active albuterol 108 (90 Base) MCG/ACT inhalerIndication s:Mild intermittent asthma, unspecified whether complicated INHALE 2 PUFFS BY MOUTH EVERY 4 TO 6 HOURS NEEDED FOR WHEEZING OR SHORTNESS OF BREATH 18 g 3 01/30/20 25 Active hydroCHLOROthiazi de 12.5 MG tablet TAKE 1 TABLET BY MOUTH EVERY DAY 30 tablet 11 02/09/20 25 Active ammonium lactate (Lac-Hydrin) 12 % lotionIndications :Pruritus Apply topically if needed for dry skin. 400 g 1 03/07/20 25 026 Active amitriptyline (Elavil) 10 MG tabletIndications :Nonintractable episodic headache, unspecified headache type Take 1 tablet (10 mg) by mouth at bedtime. 30 tablet 03/07/20 25 025 Active ibuprofen 600 MG tabletIndications :Nonintractable episodic headache, unspecified headache type Take 1 tablet (600 mg) by mouth every 8 (eight) hours if needed for mild pain. 30 tablet 03/07/20 25 025 Active polyvinyl alcohol (Liquifilm Tears) 1.4 % ophthalmic solutionIndicatio ns:Dry eyes, bilateral Administer 1 drop into both eyes if needed for dry eyes. 15 mL 6 03/15/20 25 Active Active Problems Problem Noted Date Diagnosed Date Chronic obstructive pulmonar y disease, unspecified COPD type ([facility]) 03/07/2025 Assessment & Plan (03/07/2025 1:19 PM EDT): Continue with current interventions and f/u with pulmonology Episodic headache 03/07/2025 Assessment & Plan (03/07/2025 1:18 PM EDT): Tension headaches?? No red flags identified I will treat patient with amitriptyline 10mg at bed time and ibuprofen PRN, I will follow up in 4 weeks Lymphopenia 03/07/2025 Assessment & Plan (03/07/2025 1:21 PM EDT): I noticed persistent lymphopenia I will refer patient to hematology Dysuria 12/05/2024 Assessment & Plan (12/05/2024 9:58 AM EDT): Possible UTI I will prescribe ciprofloxacin 500 mg every 12 hours for 7 days UA and culture done patient will be contacted with results Advised to contact back urology and report symptoms Prediabetes 12/05/2024 Assessment & Plan (12/05/2024 9:57 AM EDT): Counseling about healthy diet and exercise on today Prostate cancer ([facility]) 12/05/2024 Assessment & Plan (12/05/2024 9:58 AM EDT): Continue to follow-up with urology Hematuria 05/01/2024 Assessment & Plan (05/02/2024 12:32 [...] a colonoscopy Pruritus 07/12/2023 Assessment & Plan (03/07/2025 1:22 PM EDT): I will repeat blood work patient will be contacted with results I will also refer patient to hematology in light of persistent lymphopenia Assessment & Plan (09/01/2024 4:17 PM EST): Labs ordered today patient will be contacted with results I will prescribe for patient hydroxyzine at bedtime for the itchiness Assessment & Plan (07/12/2023 12:27 PM EST): I will refer him to strategic planning specialist Allergy 07/12/2023 Dyspnea on exertion 01/12/2023 [...] 09/17/2017 Essential hypertension 08/03/2017 Assessment & Plan (03/07/2025 1:16 PM EDT): I advised: - Aerobic exercise to reduce BP. Initial [...] consulting health care provider Assessment & Plan (09/01/2024 4:17 PM EST): [...] for change. PLAN: 1. Follow up with [facility]: Not recommended for follow-up 2. Patient goal is to continue OP therapy and explore additional coping mechanisms. 3. Behavioral Recommendations a. OP therapy b. Coping mechanisms- deep breathing C. 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 09/01/2024 Dilatation of aorta 09/17/2017 09/01/19 25 Encounters Date Type Department Care Team Description 03/21/2025 Telephone [facility] MEDICINE [address] [place] [phone] Niki Ramos MD Referral 03/15/2025 10:30 AM EDT Office Visit [facility] OPTOMETRY [address] [place] [address] Tarka, Madeline, OD Dry eyes, bilateral (Primary Dx); Open angle with borderline findings, low risk, bilateral; Presbyopia; Retinal hemorrhage of right eye 03/07/2025 10:00 AM EDT Office Visit [facility] MEDICINE [address] [place] [phone] Niki Ramos MD Essential hypertension (Primary Dx); Chronic obstructive pulmonary disease, unspecified COPD type ([facility]); Dietary counseling; Exercise counseling; Pruritus; Nonintractable episodic headache, unspecified headache type; Lymphopenia 03/07/2025 Orders Only GENERIC EXTERNAL DATA DEPARTMENT Provider, Generic External Data 03/07/2025 Travel 02/28/2025 Patient Outreach [facility] MEDICINE [address] [place] [phone] Niki Ramos MD Pre-visit Planning (SDOH screening completed on 11/23/2024) 02/22/2025 10:00 AM EDT Office Visit [facility] ADULT DENTAL [address] [place] [address] Sundeep Felipe, DMD 02/08/2025 Refill [facility] MEDICINE [address] [place] [address] Niki Ramos MD 01/27/2025 Refill [facility] MEDICINE [address] [place] [address] Niki Ramos MD Mild intermittent asthma, unspecified whether complicated 01/24/2025 Refill [facility] MEDICINE [address] [place] [address] Niki Ramos MD Asthma in adult, mild intermittent, uncomplicated 01/17/2025 2:30 PM EDT Office Visit [facility] ADULT DENTAL [address] [place] [address] Sundeep Felipe, DMD 01/01/2025 Refill [facility] MEDICINE [address] [place] [address] Niki Ramos MD Vitamin D deficiency from Last 3 Months Immunizations Immunization Administration [...] Info) Description 04/16/2025 11:30 AM EDT Telemedicine [facility] MEDICINE [address] [place] [address] Niki Ramos MD [address] [place] [address] 06/15/2025 3:30 PM EST Office Visit [facility] OPTOMETRY [address] [place] [address] Wilmer, Madeline, OD [address] [place] [address] Health Maintenance Due Date Last Done Comments [...] Additional history exists Influenza Vaccine (#1) 2025 4, 03/27/2022, 04/29/2021, Additional history exists Diabetes: Hemoglobin A1C 09/04/2025 025, 10/04/2023, 09/29/2022, Additional history exists SDOH Screening 11/23/2025 11/23/2024 Depression Screening 12/05/2025 12/05/2024, 12/06/19 25 Alcohol/Substance Use Screening 03/07/2026 03/07/2025 Tobacco Screening 03/15/2026 03/15/2025 Lipid Panel 09/04/2029 09/04/2024, 04/0 07/2023, 09/29/2022, [...] Procedure Name Priority Date/Time Associated Diagnosis Comments OCT, OPTIC NERVE - OU - BOTH EYES Routine 03/15/2025 11:49 AM EDT Open angle with borderline findings, low risk, bilateral PSA, FREE AND TOTAL Routine 03/07/2025 1 2:51 PM EDT PSA, TOTAL WITH REFLEX TO PSA, FREE Routine 03/07/2025 10:40 AM EDT CBC WITH AUTO DIFFERENTIAL Routine 03/07/2025 10:40 AM EDT Pruritus BASIC METABOLIC PANEL Routine 03/07/2025 10:40 AM EDT Pruritus HEPATIC FUNCTION PANEL Routine 03/07/2025 10:40 AM EDT Pruritus CASE PRESENTATION, DETAILED AND EXTENSIVE TREATMENT PLANNING Routine 02/22/2025 10:00 AM EDT LIMITED ORAL EVALUATION - PROBLEM FOCUSED Routine 02/22/2025 10:00 AM EDT DENTURE FOLLOWUP Routine 01/17/2025 2:30 PM EDT HEPATITIS C AB W/REFL TO HCV RNA, QN, PCR Routine 09/04/2024 7:59 AM EST Pruritus HEMOGLOBIN A1C Routine 09/04/2024 7:59 AM EST Pruritus LIPID PANEL, STANDARD Routine 09/04/2024 7:59 AM EST Pruritus HM COLONOSCOPY Routine 03/07/2020 from Last 3 Months or Most Recently Relevant to Health Maintenance Results * OCT, Optic Nerve - OU - Both Eyes (03/15/2025 11:49 AM EDT) Madeline Ponce, OD - 03/15/2025 11:49 AM EDT OCT GLAUCOMA INTERPRETATION Reliability : OD: SS 47 - adequate quality image OS: SS 42 - low quality image, patchy areas of signal reduction Measurements RNFL: Avg RNFL thickness OD: 86 microns OS: 85 microns Test findings RNFL: RNFL OD: Borderline thin RNFL inferior. Baseline. RNFL OS: Borderline thin RNFL inferior. Baseline. Test findings GCL: GCL OD: Borderline thin nasal. Baseline. GCL OS: Diffusely thin inferior temporal however testing unreliable due to large foveal patches of signal dropout. Baseline. Impression and Plan: Primary open angle glaucoma (POAG) suspect both eyes (OU). RTC in 3 months for baseline VF Madeline Guillen OD OPHTH TOMOGRAPHY Final Result * (ABNORMAL) PSA, Free and Total (03/07/2025 12:51 PM EDT) PSA, Total 7.1(A) < OR = 4.0 ng/mL [facility] PSA % Free 8(A) >25 % (calc) [facility] Comment: PSA(ng/mL) Free PSA(%) Estimated(x) Probability of Cancer(as%)0-2.5 (*) Approx. 12.6-4.0(1) 0-27(2) 24(3)4.1-10(4) 0-10 56 11-15 28 16-20 20 21-25 16 >or =26 8>10(+) N/A >50References:(1)Sangita et al.:Urology 60: 469-474 (2001) (2)Sangita et al.:J.Urol 168: 922-925 (2001) Free PSA(%) Sensitivity(%) Specificity(%) < or = 25 85 19 < or = 30 93 9 (3)Catalona et al.:TRICE 277: 3520-8715 (1996) (4)Catalona et al.:TRICE 279: 7603-9901 (1997)(x)These estimates vary with age, ethnicity, family history and JONO results.(*)The diagnostic usefulness of % Free PSA has not been established in patients with total PSA below 2.6 ng/mL(+)In men with PSA above 10 ng/mL, prostate cancer risk is determined by total PSA alone.The Total PSA [...] presence or absence ofdisease.THIS TEST WAS PERFORMED AT:[facility] [place] [phone] LORENZANA MD PSA, Free 0.6 ng/mL [facility] 03/07/2025 12:5 1 PM EDT 03/07/2025 12:51 PM EDT us Generic External Data Provider LAB BLOOD ORDERAB LES Final Result [facility] [address] [place] [address] [phone] * (ABNORMAL) PSA, Total With Reflex to PSA, Free (03/07/2025 10:40 AM EDT) PSA,Total (Free>4and<10) 8.60(H) 0.00 - 4.00 ng/mL [facility] Comment:PSA methodology: [place] i ChemiluminescentMicroparticle Immunoassay (CMIA) 03/07/2025 10:4 0 AM EDT 03/07/2025 11:42 AM EDT us Generic External Data Provider LAB BLOOD ORDERAB LES Final Result [facility] [address] [place] [address] [phone] * (ABNORMAL) CBC auto differential (03/07/2025 10:40 AM EDT) Pathologist [facility] White Blood Count 4.6(L) 4.8 - 10.8 X10*3/uL [facility] Red Blood Count 5.28 4.60 - 5.80 X10*6/uL [facility] Hemoglobin 14.7 14.0 - 18.0 g/dl [facility] Hematocrit 44.8 42.0 - 52.0 % [facility] Mean Corpuscular Volume 84.8 80.0 - 98.0 fL [facility] Mean Corpuscular Hemoglobin 27.8 27.0 - 33.0 pg [facility] Mean Corpuscular HGB Conc 32.8 31.0 - 36.0 g/dl [facility] Red Cell Distribution Width 12.4 11.0 - 16.0 % [facility] Platelet Count 180 160 - 400 X10*3/uL [facility] Mean Platelet Volume 10.3 9.4 - 12.4 fL [facility] Neutrophils Percent Auto 68.8 45 - 73 % [facility] Imm Gran Pct Auto 0.4 0.0 - 0.4 % [facility] Lymphocytes Percent Auto 21.4 20 - 40 % [facility] Monocytes Percent Auto 6.3 2 - 11 % [facility] Eosinophils Percent Auto 2.4 0 - 4 % [facility] Basophils Percent Auto 0.7 0 - 2 % [facility] NRBC Pct Auto 0.0 0.0 - 0.2 /100WBC [facility] Neutrophils Absolute Auto 3.2 2.0 - 8.3 x10*3/uL [facility] Imm Gran Abs Auto 0.02 0.00 - 0.03 X10*3/uL [facility] Lymphocytes Absolute Auto 1.0(L) 1.2 - 4.9 X10*3/uL [facility] Monocytes Absolute Auto 0.3 0.1 - 1.2 X10*3/uL [facility] Eosinophils Absolute Auto 0.1 0.0 - 0.4 X10*3/uL [facility] Basophils Absolute Auto 0.0 0.0 - 0.2 X10*3/uL [facility] NRBC Abs Auto 0.000 0.0 - 0.012 X10*3/uL [facility] Blood Venous blood specimen / Unknown 03/07/2025 10:40 AM EDT 03/07/2025 11:12 AM EDT us Niki Simmons MD LAB BLOOD ORDERABLES Final Result [facility] [address] [place] [phone] * Hepatic Function Panel (03/07/2025 10:40 AM EDT) Bilirubin, Total 0.9 0.0 - 1.0 mg/dL [facility] Bilirubin, Direct 0.3 0.0 - 0.5 mg/dL [facility] Aspartate Amino Transferase 29 5 - 37 U/L [facility] Alanine Aminotransferase 29 0 - 40 U/L [facility] Total Protein 7.2 6.5 - 8.0 g/dL [facility] Albumin Level 4.8 3.5 - 5.0 g/dL [facility] Alkaline Phosphatase 57 39 - 117 U/L [facility] Blood Venous blood specimen / Unknown 03/07/2025 10:40 AM EDT 03/07/2025 11:42 AM EDT us Niki Simmons MD LAB BLOOD ORDERABLES Final Result Performing Organization Address City/[facility]/ZIP Co de Phone Number [facility] [address] [place] [phone] [phone] * (ABNORMAL) Basic Metabolic Panel (03/07/2025 10:40 AM EDT) Sodium 142 135 - 145 mmol/L [facility] Potassium 3.9 3.3 - 5.1 mmol/L [facility] Chloride 105 96 - 108 mmol/L [facility] Carbon Dioxide 30(H) 22 - 29 mmol/L [facility] Anion Gap 11(L) 12 - 20 [facility] Urea Nitrogen (BUN) 22(H) 9 - 16 mg/dL [facility] Creatinine, Serum 0.81 0.5 - 1.4 mg/dL [facility] Estimated Glomerular Filt Rate >60 [facility] Comment:Chronic Kidney Disea se: Estimated GFR < 60 mL/min/[id number] Kidney Disease: Estimated GFR < 15 mL/min/1.73m2 Glucose 78 60 - 115 mg/dL [facility] Calcium 9.4 8.4 - 10.2 mg/dL [facility] Blood Venous blood specimen / Unknown 03/07/2025 10:40 AM EDT 03/07/2025 11:42 AM EDT us Niki Simmons MD LAB BLOOD ORDERABLES Final Result Performing Organization Address City/[facility]/ZIP Co de Phone Number [facility] [address] [place] [address] [phone] * Hepatitis C Antibody with Reflex to HCV, RNA, Quantitative, Real-Time PCR (09/04/2024 7:59 AM EST) Hepatitis C Antibody Nonreactive Nonreactive [facility] Comment:Antibodies to HCV no t detected; does not exclude early acuteHCV infection. Blood Venous blood specimen / Unknown 09/04/2024 7:59 AM EST 09/04/2024 11:36 AM EST Niki Simmons MD LAB BLOOD ORDERABLES Final Result Performing Organization Address [facility] Co de Phone Number [facility] [address] [place] [phone] * Hemoglobin A1c (09/04/2024 7:59 AM EST) Hemoglobin A1c 5.7 <6.0 % [facility] Comment:Hemoglobin A1C Refer ence Range Adults: 4.8 - 6.0 % Non diabetic: < 6.0 % Goal: < 7.0 %Additional Action Suggested: > 8.0 %Note: Hemoglobin A1c results are invalid for patients with abnormal amounts of HbF. Blood transfusions may impact the HbA1c concentration in the patient sample. Estimated Average Glucose 117 mg/dL [facility] Comment:eAG = Estimated ave rage glucose which is %A1C expressed asaverage glucose, using the formula of the [id number] Glucose study (ADAG), Diabetes Care, Vol.31,#8,Feb. 2007 Blood Venous blood specimen / Unknown 09/04/2024 7:59 AM EST 09/04/2024 11:36 AM EST us Niki Simmons MD LAB BLOOD ORDERABLES Final Result Performing Organization Address City/[facility]/ZIP Co de Phone Number [facility] [address] [place] [phone] * Lipid Panel, Standard (09/04/2024 7:59 AM EST) Triglycerides 74 <150 mg/dL [facility] Comment:Desirable Triglyceri de: less than 150 mg/dLBorderline High Triglyceride 150-199 mg/dLHigh Triglyceride: 200-499 mg/dLVery High Triglyceride: greater than or equal to 5OO mg/dL Cholesterol 106 <200 mg/dL [facility] Comment:Desirable Cholestero l: less than 200 mg/dLBorderline High Cholesterol: 200-239 mg/dLHigh Cholesterol: greater than 239 mg/dL LDL Cholesterol Calculated 47 <100 mg/dL [facility] Comment:Desirable LDL: less than 100 mg/dLNear Optimal/Above Optimal LDL: 110- 129 mg/dLBorderline High LDL: 130-159 mg/dLHigh LDL: 160-189 mg/dLVery High LDL: greater than or equal to 190 mg/dL HDL Cholesterol 45 >40 mg/dL [facility] Comment:Desirable HDL: great er than 40 mg/dL Note: This HDL assay may give artificially low results in patients with liver disease. Blood Venous blood specimen / Unknown 09/04/2024 7:59 AM EST 09/04/2024 11:36 AM EST Niki Simmons MD LAB BLOOD ORDERABLES Final Result Performing Organization Address City/State/[facility] Co de Phone Number [facility] [address] [place] [phone] * Hm Colonoscopy (03/07/2020) Historical Provider HEALTH MAINTENANCE Final Result from Last 3 Months or Most Recently Relevant to Health Maintenance Insurance [facility] OPT[employer] (HMO D-SNP) [place] [id number] Care Teams Thermite Bomb Loader Relationship Specialty Start Date End Date Niki Ramos MD [address] [place] [address] PCP - General Family Medicine 03/24/18 Ken CASTANEDA 10/24/24
--- OUTSIDE RECORDS SUMMARY | 2025-04-03 13:55 | XMS_ITS | Encounter Summary ---
Author Organization [employer] Address [address] [facility] 7t [place] [address] Care Team Providers Care Family Medicine Physician Assistant Name Role Phone Niki Ramos MD Primary Care Provide r Encounter Details Date Type Department Care Team (Late st Contact Info) Description 09/03/2022 Abstract [facility] ADULT DENTAL [address] [place] [address] Sundeep Felipe DMD [address] [place] [address] Social History Tobacco Use Types Packs/Day Years [...] EDT Telemedicine [facility] MEDICINE [address] [place] [address] Niki Ramos MD [address] [place] [address] 06/15/2025 3:30 PM EST Office Visit [facility] OPTOMETRY [address] [place] [phone] Wilmer Madeline, OD [address] [place] [address] documented as of this encounter Visit Diagnoses Not on filedocumented in this encounter Care Teams Family Medicine Physician Assistant Relationship Specialty Start Date End Date Niki Ramos MD [address] [place] [address] PCP - General Family [facility] documented as of this encounter
--- OUTSIDE RECORDS SUMMARY | 2025-04-03 13:55 | XMS_ITS | Encounter Summary ---
Author Organization [employer] [facility] Address [address] [facility] 7t [place] [address] Care Team Providers Care Orthopaedic Surgeon Name Role Phone Niki Ramos MD Primary Care Provide r Encounter Details Date Type Department Care Team (Latest Contact Info) Description 04/09/2022 Abstract [facility] CONVERSION[facility] Dental, Provider, DDS Social History [...] Info) Description 04/16/2025 11:30 AM EDT Telemedicine [facility] MEDICINE [address] [place] [address] Niki Ramos MD [address] [place] [address] 06/15/2025 3:30 PM EST Office Visit [facility] OPTOMETRY [address] [place] [address] Madeline Guillen, OD [address] [place] [address] documented as of this encounter Visit Diagnoses Not on filedocumented in this encounter Care Teams Orthopaedic Surgeon Relationship Specialty Start Date End Date Niki Ramos MD [address] [place] [phone] PCP - General Family Medicine 03/24/18 Ken CASTANEDA 10/24/24 documented as of this encounter
== END 2025-04-03 13:52 | disposition home or self-care (01) ==
LOC: HO.HUSH 12:50
PROVIDERS: PCP Internal Medicine; Visit Provider Urology
DX: N40.1 Benign prostatic hyperplasia with lower urinary tract symptoms (principal); N13.8 Other obstructive and reflux uropathy; C61 Malignant neoplasm of prostate; Z19.1 Hormone sensitive malignancy status
CPT/HCPCS: 99213; G2211

== ENCOUNTER → 2025-04-03 12:49 | Outpatient (BNVA) | payer OTHER, SELFPAY | PROVIDERS: PCP Internal Medicine; Visit Provider Urology | DX: N40.1 Benign prostatic hyperplasia with lower urinary tract symptoms (principal); N13.8 Other obstructive and reflux uropathy; Z19.1 Hormone sensitive malignancy status; C61 Malignant neoplasm of prostate | CPT/HCPCS: 51798; 81003; 99212 ==

== ENCOUNTER → 2025-04-27 13:30 | Outpatient (BNV) | payer OTHER, SELFPAY | PROVIDERS: PCP Student in an Organized Health Care Education/Training Program; Referring Provider Student in an Organized Health Care Education/Training Program; Visit Provider Internal Medicine | DX: D72.819 Decreased white blood cell count, unspecified (principal); Z86.2 Personal history of diseases of the blood and blood-forming organs and certain disorders involving the immune mechanism | CPT/HCPCS: 99203 ==

== ENCOUNTER 2025-06-14 08:57 | Outpatient (AMB) | payer OTHER, SELFPAY ==
[2025-06-14 09:04] VITALS: BP 112/60; PULSE 68; O2SAT 96; BMI 25.3
--- NOTE | 2025-06-14 09:04 | MHC.OFFVIS ---
Vital Signs 06/14/25 09:04 Height 5 ft 6 in Weight 157 lb BMI 25.3 BP 112/60 Blood Pressure Location Lt brachial Position Sitting Pulse 68 Pulse Source Pulse Oximeter Pulse Oximetry (%) 96 Oxygen Delivery Method Room Air Intake Visit Reasons: Shortness of breath Sprinkling System Irrigator Required: Yes Sprinkling System Irrigator Name: Janelle Givens Kin Information Interpreted: non-clinical & clinical Allergies oxycodone (From PERCOCET) Allergy (Unknown, Verified 06/14/25 09:09) HIVES HPI HPI Shortness of breath: Details: 75-year-old gentleman, former at least 30 pack-year smoker, quit 2010 now followed for severe to very severe COPD. His symptoms getting worse control on Breztri, likely secondary to inability to generate sufficient inspiratory flow. He also has been using theophylline, Brovana/duo nebs with some improvement in his control, however still insufficient. Though, he denies recent exacerbations. [facility] Medical History Vitamin D deficiency Hematuria PVD (peripheral vascular disease) Esophageal dysphagia BPH loc w urin obs/LUTS Asthma HTN (hypertension) Surgical History History of hand surgery Hx of colonoscopy History of surgery Hx of prostatectomy Family History (Updated 04/27/25 @ 13:46 by Chuck Hung) Father No problems noted. Mother No problems noted. 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 Review of Systems Const Denies daytime sleepiness, Denies excessive sweating, Denies fatigue, Denies fever(s), Denies lethargy, Denies malaise, Denies night sweats, Denies snoring and Denies weight loss Eyes Denies blurry vision and Denies itchy eyes ENT Denies nasal congestion, Denies post nasal drip, Denies sinus pain, Denies sinus pressure and Denies other ( Thrush) Card Denies chest pain, Denies pedal edema, Denies dyspnea, Reports dyspnea on exertion, Denies orthopnea and Denies paroxysmal nocturnal dyspnea Resp Denies cough, Denies hemoptysis, Denies excessive phlegm production, Denies dyspnea, Reports dyspnea on exertion, Denies snoring and Denies wheezing GI Denies abdominal pain and Denies heartburn Musc Denies myalgias, Denies arthralgias and Denies joint swelling Skin/Breast Denies rash Neuro Denies memory loss and Denies seizure-like activity Psych Denies abnormal sleep pattern, Denies anxiety and Denies memory loss Endo Denies excessive sweating, Denies fatigue and Denies heat intolerance Amari/Lymph Denies easy bruising Aller/Immun Denies itchy eyes, Denies seasonal rhinorrhea and Denies wheezing Physical Exam Vital Signs: Last Vital Signs Pulse 68 06/14/25 09:04 BP 112/60 06/14/25 09:04 Pulse Ox 96 06/14/25 09:04 Oxygen Delivery Method Room Air 06/14/25 09:04 BMI result Body Mass Index 25.3 Const General: no acute distress and alert Nutritional Appearance: not obese Orientation/consciousness: Other orientation findings ( oriented) HEENT Head: Yes atraumatic Eyes General: appearance normal, both eyes and all related structures Sclerae: sclerae normal EOM: EOMs intact bilaterally Neck Neck: Yes supple Lymphatic: no lymphadenopathy noted Resp Effort & Inspection: normal respiratory effort and no use of accessory muscles Auscultation: clear to auscultation bilaterally Cardio Rate: regular rate Rhythm: regular rhythm Heart sounds: no gallops, no murmurs and no rubs Skin General skin exam: other ( warm) Extrem General: No clubbing, No cyanosis and No edema Assessment & Plan Assessment & Plan (1) COPD (chronic obstructive pulmonary disease): Code(s): J44.9 - Chronic obstructive pulmonary disease, unspecified Category: Medical Plan: Severe to very severe COPD with suboptimal control on Breztri likely secondary to inability to generate sufficient inspiratory flow. Will change to Yupelri/Ohtuvayre. Continue Brovana, duo nebs, theophylline, and albuterol MDI. (2) Personal history of nicotine dependence: Comment: (onset 20's 1/2-1ppd x 35yrs 25+PYH, quit 2010) Code(s): Z87.891 - Personal history of nicotine dependence Category: Medical Plan: Lung cancer screening CT chest is pending. Medications: New revefenacin (Yupelri) 175 mcg (3 mL) inhalation DAILY 90 mL 6RF 30 days ensifentrine (Ohtuvayre) 3 mg (2.5 mL) inhalation BID 150 mL 6RF Discontinued etnjirgjhh-ufshmkxf-uyqqtggdde 160-9-4.8 mcg/actuation (Breztri Aerosphere) Discontinued Reason: Doctor's Order 2 inhalations inhalation BID 10.7 grams 2RF Coding Level of Care Code Est Pt Level 4 (97663) Diagnoses COPD (chronic obstructive pulmonary disease) J44.9 Personal history of nicotine dependence Z87.891
== END 2025-06-14 09:22 | disposition home or self-care (01) ==
LOC: HO.HPS 08:57
PROVIDERS: PCP Internal Medicine; Visit Provider Internal Medicine Pulmonary Disease
DX: J44.9 Chronic obstructive pulmonary disease, unspecified (principal); Z87.891 Personal history of nicotine dependence
CPT/HCPCS: 99214

== ENCOUNTER → 2025-06-14 08:57 | Outpatient (BNVA) | payer OTHER, SELFPAY | PROVIDERS: PCP Internal Medicine; Visit Provider Internal Medicine Pulmonary Disease | DX: J44.9 Chronic obstructive pulmonary disease, unspecified (principal); Z87.891 Personal history of nicotine dependence; Z79.899 Other long term (current) drug therapy | CPT/HCPCS: 99212 ==